=== PATIENT | male | born 1960 | race African-American/Black ===

== ENCOUNTER 2016-06-30 18:04 | Inpatient (IN) | payer BC ==
--- NOTE | 2016-06-30 18:16 | ER Document Report ---
Addendum entered and electronically signed by YOKASTA PEDRO NP 06/30/16 18:18 : Course - Re-evaluation Re-evalutation: 06/30/16 18:[address] Smith and he has had a recent urinary frequency has not checked his glucose lately. - Vital Signs Vital signs: Temp Pulse Resp BP Pulse Ox 97.5 F 59 L 22 H 170/112 H 99 06/30/16 18:13 06/30/16 18:13 06/30/16 18:13 06/30/16 18:13 06/30/16 18:13 Original Note: ED Medical Screen (RME) - General Stated Complaint: WEAKNESS,SHAKING,SWEATY Time seen by provider: 18:13 Mode of Arrival: Wheelchair Information source: Patient Notes: 55-year-old diabetic 2, lipidemia, hypertensive, CHF was sitting at home at 3: 00 pm and developed weakness, sweating, short of breath, shakiness, coldness. Heart was beating fast. No nausea vomiting. No abdominal pain. Symptoms he has right now are shaking weakness and cold feeling. - Related Data Allergies/Adverse Reactions: No Known Allergies Allergy (Verified 08/26/11 13:41) Past Medical History Pulmonary Medical History: Denies: Hx Tuberculosis Past Surgical History: Denies: Hx Appendectomy, Hx Bowel Surgery, Hx Cholecystectomy, Hx Coronary Artery Bypass Graft, Hx Gastric Bypass Surgery, Hx Herniorrhaphy, Hx Pacemaker, Hx Tonsillectomy - Immunizations Hx Diphtheria, Pertussis, Tetanus Vaccination: Yes
[2016-06-30] MEDS ORDERED: NORMAL SALINE 1000 ML 1,000 ML IV ONE (18:18)
[2016-06-30] MEDS ORDERED: ASPIRIN 81 MG TABLET, CHEWABLE PO ONE (18:36)
[2016-06-30] MEDS ORDERED: ADENOSINE INJ/PF 6 MG/2 ML SDV IV ONE ×2 (18:37→18:50)
[2016-06-30] MEDS ORDERED: HEPARIN SODIUM,PORCINE/D5W 250 ML IV PRN (18:59)
[2016-06-30] MEDS ORDERED: DILTIAZEM HCL/D5W 125 ML IV PRN (18:59)
[2016-06-30] MEDS ORDERED: HEPARIN SOD (PORCINE) 1,000 UNIT/ML 10 ML VIAL IV ONE (18:59)
[2016-06-30] MEDS ORDERED: HEPARIN SOD (PORCINE) 1,000 UNIT/ML 10 ML VIAL IV PRN (18:59)
[2016-06-30] MEDS ORDERED: DILTIAZEM HCL INJ 25 MG/5 ML VIAL IV ONE (18:59)
[2016-06-30 19:01] LABS: ABSOLUTE BASOPHILS # (AUTO) 0.1 10^3/uL (0.0-0.2); ABSOLUTE EOSINOPHILS # (AUTO) 0.1 10^3/uL (0.0-0.6); ABSOLUTE LYMPHOCYTES (AUTO) 0.9 10^3/uL (0.5-4.7); ABSOLUTE MONOCYTES (AUTO) 0.6 10^3/uL (0.1-1.4); ABSOLUTE NEUT (AUTO) 7.7 10^3/uL (1.7-8.2); BASOPHILS % (AUTO) 0.8 % (0-2); EOSINOPHILS % (AUTO) 0.7 % (0-6); HEMOGLOBIN 15.3 g/dL (13.5-17.0); HGB HCT DIFFERENCE -0.1; LYMPHOCYTES % (AUTO) 9.9 % (13-45); MEAN CORPUSCULAR HEMOGLOBIN 25.5 pg (27.0-33.4); MEAN CORPUSCULAR HGB CONC 33.2 g/dL (32.0-36.0); MEAN CORPUSCULAR VOLUME 77 fl (80-97); RED BLOOD COUNT 5.98 10^6/uL (4.35-5.55); RED CELL DISTRIBUTION WIDTH 14.9 % (11.5-14.0); SEGMENTED NEUTROPHILS % (AUTO) 82.6 % (42-78); WHITE BLOOD COUNT 9.3 10^3/uL (4.0-10.5)
[2016-06-30 19:09] LABS: PROTHROMBIN TIME 12.9 SEC (11.4-15.4)
[2016-06-30 19:34] LABS: ALANINE AMINOTRANSFERASE 15 U/L (21-72); ALBUMIN 3.7 g/dL (3.5-5.0); ALKALINE PHOSPHATASE 63 U/L (38-126); ANION GAP 14 (5-19); ASPARTATE AMINO TRANSFERASE 25 U/L (17-59); BLOOD UREA NITROGEN 24 mg/dL (7-20); CALCIUM 8.8 mg/dL (8.4-10.2); CARBON DIOXIDE 24 mmol/L (22-30); CHLORIDE 100 mmol/L (98-107); CREATINE KINASE 176 U/L (55-170); CREATININE RESULT 2.04 mg/dL (0.52-1.25); LIPASE 114.1 U/L (23-300); MAGNESIUM 1.8 mg/dL (1.6-2.3); POTASSIUM 3.5 mmol/L (3.6-5.0); SODIUM 138.3 mmol/L (137-145); TOTAL PROTEIN 7.6 g/dL (6.3-8.2)
[2016-06-30 19:40] LABS: CREATINE KINASE MB 2.7 ng/mL (<4.55)
[2016-06-30 19:51] LABS: GLUCOSE 445 mg/dL (75-110); TROPONIN I 0.088 ng/mL
--- NOTE | 2016-06-30 20:02 | ER Document Report ---
ED General - General Chief Complaint: Weakness Stated Complaint: WEAKNESS,SHAKING,SWEATY Mode of Arrival: Wheelchair TRAVEL OUTSIDE OF THE [place] IN LAST 30 DAYS: No - HPI Patient complains to provider of: generalized weakness shortness of breath Notes: Patient coming in for palpitations her last week shortness of breath ongoing since 3:00 this afternoon. Patient states resting currently may develop symptoms therefore came to ER. Patient has a history diabetes and congestive heart failure. Patient states his PCP is Dr. Aguiar. Patient states recent saw Dr. Marcus one half weeks ago no changes in his medications. Denies smoking denies fevers chills nausea vomiting Upon evaluating the patient patient is on the youth nutritional monitor showing a heart rate between 160 and 180. Initial rhythm looks to be in SVT. - Related Data Allergies/Adverse Reactions: No Known Allergies Allergy (Verified 06/30/16 19:01) Past Medical History - General Information source: Patient - Social History Smoking Status: Never Smoker Family History: None Patient has suicidal ideation: No Patient has homicidal ideation: No Pulmonary Medical History: Denies: Hx Tuberculosis Past Surgical History: Denies: Hx Appendectomy, Hx Bowel Surgery, Hx Cholecystectomy, Hx Coronary Artery Bypass Graft, Hx Gastric Bypass Surgery, Hx Herniorrhaphy, Hx Pacemaker, Hx Tonsillectomy - Immunizations Hx Diphtheria, Pertussis, Tetanus Vaccination: Yes Review of Systems - Review of Systems Constitutional: Diaphoresis, Other - Feeling unwell EENT: No symptoms reported Cardiovascular: Heart racing Respiratory: No symptoms reported Gastrointestinal: No symptoms reported Genitourinary: No symptoms reported Male Genitourinary: No symptoms reported Musculoskeletal: No symptoms reported Skin: No symptoms reported Hematologic/Lymphatic: No symptoms reported Neurological/Psychological: No symptoms reported -: Yes All other systems reviewed and negative Physical Exam - Vital signs Vitals: Temp Pulse Resp BP Pulse Ox 97.5 F 59 L 22 H 170/112 H 99 06/30/16 18:13 06/30/16 18:13 06/30/16 18:13 06/30/16 18:13 06/30/16 18:13 Interpretation: Normal - General General appearance: Alert, Other - Diaphoretic - HEENT Head: Normocephalic, Atraumatic Eyes: Normal Pupils: PERRL - Respiratory Respiratory status: No respiratory distress Chest status: Nontender Breath sounds: Normal Chest palpation: Normal - Cardiovascular Rhythm: Tachycardia Heart sounds: Normal auscultation Murmur: No - Abdominal Inspection: Normal Distension: No distension Bowel sounds: Normal Tenderness: Nontender Organomegaly: No organomegaly - Back Back: Normal, Nontender - Extremities General upper extremity: Normal inspection, Nontender, Normal color, Normal ROM , Normal temperature General lower extremity: Normal inspection, Nontender, Normal color, Normal ROM , Normal temperature, Normal weight bearing. No: Barbara's sign - Neurological Neuro grossly intact: Yes Cognition: Normal Orientation: AAOx4 [place] Coma Scale Eye Opening: Spontaneous [place] Coma Scale Verbal: Oriented [place] Coma Scale Motor: Obeys Commands [place] Coma Scale Total: 15 Speech: Normal Motor strength normal: LUE, RUE, LLE, RLE Sensory: Normal - Psychological Associated symptoms: Normal affect, Normal mood - Skin Skin Temperature: Warm Skin Moisture: Diaphoretic Skin Color: Normal Course - Re-evaluation Re-evalutation: 06/30/16 20:37 Patient's monitor and storage bin tender strip showed SVT. Patient was given adenosine 6 mg with no change adenosine 12 mg with underlying rhythm showing atrophic fibrillation. Patient was then transitioned to a Cardizem drip with a heparin drip. Lab work shows chronic renal insufficiency with elevated blood sugar no signs of DKA. Chest x-ray shows cardiomegaly no signs of infection. Patient's case was discussed with PCP Will admit to [facility]. - Vital Signs Vital signs: Temp Pulse Resp BP Pulse Ox 97.5 F 59 L 19 170/90 H 98 06/30/16 18:13 06/30/16 18:13 06/30/16 20:01 06/30/16 20:01 06/30/16 20:01 - Laboratory Result Diagrams: 06/30/16 18:48 06/30/16 18:48 Laboratory results interpreted by me: 06/30/16 06/30/16 06/30/16 18:48 18:48 18:48 RBC 5.98 H MCV 77 L MCH 25.5 L RDW 14.9 H Seg Neutrophils % 82.6 H Lymphocytes % 9.9 L Potassium 3.5 L BUN 24 H Creatinine 2.04 H Est GFR ( Amer) 42 L Est GFR (Non-Af Amer) 34 L Glucose 445 H* ALT 15 L Creatine Kinase 176 H NT-Pro-B Natriuret Pep 4650 H Critical Care Note - Critical Care Note Total time excluding time spent on procedures (mins): 35 Comments: Multiple valuations managing drip from patient with new onset A. fib Discharge - Discharge Clinical Impression: New onset a-fib, Renal insufficiency, Acute hyperglycemia Diabetes Qualifiers: Diabetes mellitus type: type 1 Diabetes mellitus complication status: with unspecified complications Qualified Code(s): E10.8 - Type 1 diabetes mellitus with unspecified complications Disposition: ADMITTED INPATIENT Admitting Provider: Stefania Unit Admitted: HASMUKH
[2016-06-30 21:27] LABS: THYROID STIMULATING HORMONE 0.75 uIU/mL (0.47-4.68)
[2016-06-30 21:33] LABS: AMORPHOUS SEDIMENT,URINE TRACE /HPF; APPEARANCE,URINE SLIGHTLY-CLOUDY; BILIRUBIN,URINE NEGATIVE (NEGATIVE); GLUCOSE, URINE >=500 mg/dL (NEGATIVE); KETONES,URINE TRACE mg/dL (NEGATIVE); LEUKOCYTE ESTERASE,URINE NEGATIVE (NEGATIVE); NITRITE,URINE NEGATIVE (NEGATIVE); PROTEIN,URINE >=500 mg/dL (NEGATIVE); URINE SPECIFIC GRAVITY 1.025; UROBILINOGEN,URINE NEGATIVE mg/dL (<2.0)
[2016-06-30] MEDS ORDERED: DEXTROSE 50%-WATER SYRINGE 12.5 GM/25 ML DOSE IV PRN (22:56)
[2016-06-30] MEDS ORDERED: DEXTROSE 40% GEL 15 GM TUBE PO PRN (22:56)
[2016-06-30] MEDS ORDERED: GLUCAGON,HUMAN RECOMB 1 MG INJ IM PRN (22:56)
[2016-06-30] MEDS ORDERED: DEXTROSE 50%-WATER SYRINGE 25 GM/50 ML DOSE IV PRN (22:56)
[2016-06-30] MEDS ORDERED: DEXTROSE 40% GEL 15 GM TUBE X 2 PO PRN (22:56)
[2016-06-30] MEDS ORDERED: DILTIAZEM HCL/D5W 125 MG/125 ML RTUINJ IV PRN (22:58)
--- NOTE | 2016-06-30 23:01 | EKG REPORT ---
SEVERITY:- ABNORMAL ECG - ATRIAL FIBRILLATION, V-RATE 75-134 PAIRED VENTRICULAR PREMATURE COMPLEXES LVH WITH SECONDARY REPOLARIZATION ABNORMALITY ABNORMAL T, PROBABLE ISCHEMIA, LATERAL LEADS BORDERLINE PROLONGED QT INTERVAL : Confirmed by: Yaquelin Mendoza 30-Jun-2016 23:00:11
--- NOTE | 2016-06-30 23:02 | EKG REPORT ---
SEVERITY:- ABNORMAL ECG - SINUS TACHYCARDIA VS SVT LVH WITH SECONDARY REPOLARIZATION ABNORMALITY ABNORMAL T, PROBABLE ISCHEMIA, LATERAL LEADS PROLONGED QT INTERVAL : Confirmed by: Yaquelin Mendoza 30-Jun-2016 23:01:03
[2016-06-30] MEDS ORDERED: ZOLPIDEM TARTRATE 5 MG TABLET PO PRN (23:03)
[2016-06-30] MEDS ORDERED: ACETAMINOPHEN 325 MG TABLET PO PRN (23:04)
[2016-06-30] MEDS ORDERED: DOCUSATE SODIUM 100 MG CAPSULE PO PRN (23:05)
[2016-06-30] MEDS ORDERED: DILTIAZEM HCL 60 MG TABLET PO ONE (23:15)
[2016-06-30] MEDS ORDERED: WARFARIN SODIUM 5 MG TABLET PO ONE (23:15)
[2016-06-30] MEDS: HEPARIN SODIUM,PORCINE/D5W 25,000 UNIT/250 ML RTUINJ IV PRN (23:34)
[2016-06-30] MEDS: INSULIN LISPRO 100 UNIT/ML 3 ML VIAL SUBCUT PRN (23:50)
[2016-07-01] MEDS ORDERED: INFLUENZA ADLT QUAD (36MOS+) 2016-17 VAC 0.5 ML SYR IM PRN (00:47)
[2016-07-01] MEDS: DILTIAZEM HCL 60 MG TABLET PO SCH ×4 (01:35→17:35)
[2016-07-01] MEDS ORDERED: CLONIDINE HCL 0.1 MG TABLET ONE (02:49)
[2016-07-01] MEDS ORDERED: CLONIDINE HCL 0.2 MG TABLET PO ONE (03:15)
[2016-07-01] MEDS ORDERED: HYDRALAZINE HCL 50 MG TABLET PO ONE (03:15)
[2016-07-01 05:51] LABS: HEMATOCRIT 41.4 % (37.9-51.0); HEMOGLOBIN 13.8 g/dL (13.5-17.0); MEAN CORPUSCULAR HEMOGLOBIN 25.4 pg (27.0-33.4); MEAN CORPUSCULAR HGB CONC 33.2 g/dL (32.0-36.0); MEAN CORPUSCULAR VOLUME 76 fl (80-97); RED BLOOD COUNT 5.43 10^6/uL (4.35-5.55); WHITE BLOOD COUNT 7.9 10^3/uL (4.0-10.5)
[2016-07-01 06:06] LABS: ALANINE AMINOTRANSFERASE 22 U/L (21-72); ALKALINE PHOSPHATASE 49 U/L (38-126); ANION GAP 10 (5-19); ASPARTATE AMINO TRANSFERASE 20 U/L (17-59); BILIRUBIN,TOTAL 0.8 mg/dL (0.2-1.3); BLOOD UREA NITROGEN 24 mg/dL (7-20); CALCIUM 8.9 mg/dL (8.4-10.2); CARBON DIOXIDE 27 mmol/L (22-30); CHLORIDE 103 mmol/L (98-107); GLUCOSE 275 mg/dL (75-110); POTASSIUM 3.7 mmol/L (3.6-5.0); SODIUM 139.8 mmol/L (137-145); TOTAL PROTEIN 6.3 g/dL (6.3-8.2); TRIGLYCERIDES 73 mg/dL (<150)
[2016-07-01 06:07] LABS: CHOLESTEROL 199.04 mg/dL (0-200); Direct HDL 46 mg/dL (>40)
[2016-07-01 06:17] LABS: DIRECT LDL 143 mg/dL (<100)
[2016-07-01] MEDS: CLONIDINE HCL 0.2 MG TABLET PO SCH ×3 (07:10→22:19)
[2016-07-01] MEDS: LANSOPRAZOLE 30 MG TAB.RAP.DR PO SCH (07:10)
[2016-07-01] MEDS: HYDRALAZINE HCL 50 MG TABLET PO SCH ×3 (07:11→22:18)
[2016-07-01] MEDS ORDERED: HEPARIN SOD (PORCINE) 1,000 UNIT/ML 10 ML VIAL IV PRN (07:31)
[2016-07-01] MEDS: INSULIN LISPRO 100 UNIT/ML 3 ML VIAL SUBCUT PRN ×3 (07:43→22:19)
[2016-07-01] MEDS: FUROSEMIDE 40 MG TABLET PO SCH (08:41)
[2016-07-01] MEDS: SPIRONOLACTONE 25 MG TABLET PO SCH (08:42)
[2016-07-01] MEDS: CARVEDILOL 12.5 MG TABLET PO SCH ×2 (08:42→22:23)
[2016-07-01] MEDS: CHOLECALCIFEROL (D3) 1,000 UNIT TABLET PO SCH (08:43)
[2016-07-01] MEDS: FERROUS SULFATE 325 MG TABLET PO SCH ×2 (08:43→17:35)
[2016-07-01] MEDS: POTASSIUM CHLORIDE 10 MEQ TABLET.SA PO SCH (08:43)
--- NOTE | 2016-07-01 10:30 | PDOC CONSULTATION ---
[id number] Palpitations and shortness of breath History of Present Illness Admission Date/PCP: 06/30/16 20:45 ERMA DESAI Patient complains of: Palpitations and shortness of breath History of Present Illness: CATHY HALL is a 55 year old male, he was admitted through the emergency room with palpitations and shortness of breath which started around 3 PM on the day of admission. Patient denied any prior history of atrial fibrillation or palpitations. He denied any associated chest pain. Patient does give history of hypertension, diabetes and CHF. Initially patient was noted to have narrow complex tachycardia which was felt to be SVT but subsequently Patient on multiple EKGs and rhythm strip was noted to have atrial fibrillation with rapid ventricular response. This morning he converted to sinus rhythm spontaneously. Patient has been started on anticoagulation by his primary care M.D. Past Medical History Cardiac Medical History: Reports: Congestive Heart Failure, Hypertension Pulmonary Medical History: Denies: Tuberculosis Endocrine Medical History: Reports: Diabetes Mellitus Type 2 Past Surgical History Past Surgical History: Denies: Appendectomy, Cholecystectomy, Coronary Artery Bypass Graft, Gastric Bypass Surgery, Herniorrhaphy, Internal Defibrillator, Pacemaker, Splenectomy, Tonsillectomy, Valve Replacement, Vascular Surgery Social History Information Source: Patient Smoking Status: Never Smoker Frequency of Alcohol Use: Occasional Hx Recreational Drug Use: No Drugs: None Hx Prescription Drug Abuse: No - Advance Directive Resuscitation Status: Full Code Surrogate healthcare decision maker:: Not identified by the patient Family History Family History: None Parental Family History Reviewed: Yes Children Family History Reviewed: Yes Sibling(s) Family History Reviewed.: Yes - Negative for premature coronary artery disease or sudden cardiac in the family amongst first degree relatives. Medication/Allergy Home Medications: Carvedilol [Coreg 25 mg Tablet] 25 mg PO Q12 06/30/16 Clonidine HCl [Catapres 0.1 mg Tablet] 0.2 mg PO Q8 06/30/16 Furosemide [Lasix 40 mg Tablet] 40 mg PO DAILY 06/30/16 Hydralazine HCl [Apresoline 50 mg Tablet] 100 mg PO Q8 06/30/16 Potassium Chloride [Klor-Con 10 Meq Tablet.sa] 10 meq PO DAILY 06/30/16 Spironolactone [Aldactone 25 mg Tablet] 50 mg PO DAILY 06/30/16 Cholecalciferol (Vitamin D3) [Vitamin D3 2000 unit Tablet] 2,000 unit PO DAILY 07/01/16 Ferrous Sulfate [Iron] 325 mg PO BID 07/01/16 Simvastatin [Simvastatin] 20 mg PO QHS 07/01/16 Allergies/Adverse Reactions: No Known Allergies Allergy (Verified 06/30/16 19:01) Review of Systems Review of Systems: Please see history of present illness and past medical history as wall. Constitutional: No fever or chills reported. Head : No recent chronic headaches, recent head injury. Eyes: No recent eye pain, diplopia, redness, discharge, acute visual changes. Ears: No recent chronic ear pain, acute hearing loss, ear discharge. Oral cavity: No recent ulcerations, bleeding, oral cavity discomfort. Neck: No recent acute neck pain reported. Hematologic: No recent easy bruising or bleeding or hematologic malignancy reported. Lymphatic: No recent lymphatic malignancy, chronic lymphadenopathy reported yet Cardiovascular system review: See history of present illness. Respiratory system review: No recent chronic cough, hemoptysis, blood clots in the lungs reported. Mild Shortness of breath on exertion Gastrointestinal system review: Negative for any recent acute or chronic abdominal pain, hematemesis, melena, recent change in bowel habits. Genitourinary system review: No recent acute or chronic hematuria, flank pain, UTI etc. reported. Skin system review: Negative for any recent abnormal bruising, no rash, no pruritus reported. Neurologic: No prior history of strokes, mini strokes, seizure disorder. Psychologic: No history of major psychosis or depression reported. Musculoskeletal: Minor aches and pains reported. No acute joint swelling reported. Endocrine: No recent polyuria, polydipsia, recent heat or cold intolerance. Physical Exam Vital Signs: Temp Pulse Resp BP Pulse Ox 97.2 F 67 16 178/93 H 96 07/01/16 07:19 07/01/16 07:19 07/01/16 07:19 07/01/16 07:19 07/01/16 07:19 Intake & Output 06/30/16 07/01/16 07/02/16 06:59 06:59 06:59 Intake Total 385 Output Total 350 Balance 35 Weight 110 kg Exam: GENERAL: well-nourished and in no acute distress. Alert and oriented x3 HEAD: Atraumatic, normocephalic. EYES: Pupils equal round and reactive to light, extraocular movements intact, sclera anicteric, conjunctiva are normal. ENT: TMs normal, nares patent, oropharynx clear without exudates. Moist mucous membranes. No oral ulcerations or bleeding gums noted NECK: supple without lymphadenopathy. Trachea is central. No cervical or axillary lymphadenopathy noted. Carotids are 2+, JVD WNL LUNGS: Respiration seems nonlabored, no significant accessory muscle action noted. Breath sounds clear to auscultation bilaterally and equal. No wheezes rales or rhonchi. No significant dullness noted on percussion. CHEST: Palpation of the chest wall shows no significant chest wall tenderness or abnormalities. HEART: Lolita [employer], No PSH, 1/6 NADER aortic area, 1/6 browne systolic murmur mitral area, no rubs, no gallops. ABDOMEN: Soft, no significant tenderness appreciated, normoactive bowel sounds. No guarding, no rebound. No rigidity noted . No masses appreciated. EXTREMITIES: Pedal pulses are 1-2+, no calf tenderness noted. No clubbing or cyanosis.trace to 1+ pedal edema noted NEUROLOGICAL: Focused neurological exam showed no significant neurologic deficit. Normal speech, no focal weakness appreciated. PSYCH: Normal mood, normal affect. Judgment and insight within normal limits. SKIN: No significant ecchymosis, rash, ulcerations or signs of pruritus noted. MUSCULOSKELETAL EXAM: No significant joint swelling noted. Results Laboratory Results: 07/01/16 05:28 07/01/16 05:28 07/01/16 07/01/16 07/01/16 05:28 05:28 05:28 WBC 7.9 RBC 5.43 Hgb 13.8 Hct 41.4 MCV 76 L MCH 25.4 L MCHC 33.2 RDW 15.0 H Plt Count 166 Sodium 139.8 Potassium 3.7 Chloride 103 Carbon Dioxide 27 Anion Gap 10 BUN 24 H Creatinine 2.00 H Est GFR ( Amer) 43 L Est GFR (Non-Af Amer) 35 L Glucose 275 H Calcium 8.9 Total Bilirubin 0.8 AST 20 ALT 22 Alkaline Phosphatase 49 Total Protein 6.3 Albumin 3.0 L Triglycerides 73 Cholesterol 199.04 LDL Cholesterol Direct 143 H VLDL Cholesterol 15.0 HDL Cholesterol 46 TSH 0.80 EKG Comments: Multiple 12-lead EKG is reviewed. Initial EKG showed that a complex tachycardia most likely SVT. Subsequent EKG showed atrial fibrillation with rapid ventricular response. LVH with secondary ST-T wave changes were noted. Impressions: Chest X-Ray 06/30/16 18:36 IMPRESSION: No acute consolidations or pleural effusions are identified. Other findings as noted above. Assessment & Plan - Diagnosis (1) Hypertension Qualifiers: Hypertension type: essential hypertension Qualified Code(s): I10 - Essential (primary) hypertension Is this a current diagnosis for this admission?: YesPlan: Blood pressure goal in this patient is 135/85 or less. This was discussed with the patient. Currently blood pressure under reasonable control. Better medication for this patient are SELVIN inhibitor/ARB/beta klaus etc. discussed side effects of uncontrolled hypertension and also severe hypotension. (2) Abnormal electrocardiogram Is this a current diagnosis for this admission?: YesPlan: To be evaluated further with a nuclear stress test in view of diabetes, chronic kidney disease and hypertension, history of CHF is high probability of patient having underlying significant CAD. (3) Renal insufficiency Is this a current diagnosis for this admission?: YesPlan: Patient seems to have chronic kidney disease stage 2-3. Creatinine been stable. Avoid any nephrotoxic agents, IV contrast agent dye etc. consider nephrology evaluation. Presence of chronic kidney disease is a prognostic factor. (4) Paroxysmal atrial fibrillation Is this a current diagnosis for this admission?: YesPlan: Patient has paroxysmal atrial fibrillation. Based on [id number] score chronic anticoagulation is indicated this was explained to the patient. Patient is agreeable. Discussed a small increased risk of bleeding but on the balance benefits far exceeds the risk. Patient felt to be a satisfactory candidate for chronic anticoagulation. Options are ELIQUIS, Xarelto, Pradaxa and chronic Coumadin therapy (5) Elevated troponin I level Is this a current diagnosis for this admission?: YesPlan: Most likely related to supply demand mismatch from atrial fibrillation with rapid ventricular response and SVT. The patient does however have abnormal EKG. This could be related to LVH. We will schedule patient for a nuclear stress test (6) Diabetes mellitus Qualifiers: Diabetes mellitus type: type 2 Chronic kidney disease stage: stage 2 ( mild) Is this a current diagnosis for this admission?: YesPlan: Recommend good control of blood sugar. However should avoid any hypoglycemia. Preferred agent for blood pressure control with the SELVIN inhibitor or angiotensin receptor blockers. Patient encouraged with low carbohydrate, low cholesterol diet and also regular walking program. Discussed that good control of blood sugar would reduce risk of future microvascular and macrovascular complications. (7) Dyslipidemia Is this a current diagnosis for this admission?: YesPlan: Patient noted to have dyslipidemia. LDL goal is less than 100 however if CAD is noted then goal is less than 70. Recommend statin therapy at least intermediate or high dose, of high potency status. Periodic lipid panel and liver panel is indicated. Patient to report any significant muscle discomfort or other side effects. (8) Obesity Qualifiers: Obesity type: unspecified obesity type Obesity severity: unspecified obesity severity Qualified Code(s): E66.9 - Obesity, unspecified Is this a current diagnosis for this admission?: YesPlan: Discussed adverse effect of overweight/obesity on cardiovascular event rate, sleep apnea, diabetes and hypertension et cetera. Patient has been recommended weight loss. (9) Sleep disorder Is this a current diagnosis for this admission?: YesPlan: Based on patient's symptoms, oropharyngeal exam, body habitus, comorbid diagnosis etc., there is high probability of underlying sleep apnea syndrome. Evaluation is recommended for sleep apnea as treatment of this condition if found is likely to benefit patient and reduce patient's future cardiovascular risk. - Notes Notes: CODE STATUS was discussed, patient remains full code. Surrogate decision-maker not identified. Multiple medical problems were addressed.More than 50% of the time spent coordinating care, discussing management plans with involved caregivers. Management plans discussed with involved personnels. Medical decision making was of moderate complexity. - Time Time Spent: 30 to 50 Minutes - Decision making was complex and multiple problems were addressed. Medications reviewed and adjusted accordingly: Yes
--- NOTE | 2016-07-01 11:55 | XCELERA REPORT ---
[address] [address] Transthoracic Echocardiogram Report Name: CATHY HALL Age: 55 yrs Gender: Male : 1960 Patient Status: Inpatient Patient Location: 3N\S\[facility]\S\A Study Date: 07/01/2016 09:27 AM Height: 72 in Weight: 249 lb BSA: 2.3 m2 Procedure: A complete two-dimensional transthoracic echocardiogram was performed (2D, M-mode, spectral and color flow Doppler). The study was technically adequate with some images being suboptimal in quality. Reason For Study: New onset afib Ordering Physician: ERMA DESAI Performed By: Jessica Bhakta Interpretation Summary The left ventricular ejection fraction is normal. There is moderate concentric left ventricular hypertrophy. Doppler measurements suggest pseudonormalized left ventricular relaxation, which is associated with grade II/IV or mild to moderate diastolic dysfunction The left ventricle is grossly normal size. Wall motion cannot be accurately commented on, but no definite regional wall motion abnormalities noted. The right ventricular systolic function is normal. The right atrium is normal in size The left atrial size is normal. There is no mitral valve stenosis. There is a trace amount of mitral regurgitation There is no aortic valve stenosis No aortic regurgitation is present. There is a trace or physiologic amount of tricuspid regurgitation Tricuspid regurgitation jet envelope not well defined to measure RV systolic pressure accurately. The aortic root is not well visualized but is probably normal size. The inferior vena cava appeared normal There is no pericardial effusion. MMode/2D Measurements \T\ Calculations RVDd: 3.2 cm LVIDd: 4.8 cmFS: 43.3 % Ao root diam: 3.5 cm IVSd: 1.6 cm LVIDs: 2.7 cmEDV(Teich): 108.7 ml LVPWd: 1.6 cmESV(Teich): 27.9 ml Ao root area: 9.8 cm2 EF(Teich): 74.3 % LA dimension: 4.2 cm LVOT diam: 2.2 cm LVOT area: 3.7 cm2 Doppler Measurements \T\ Calculations MV E max kevin: MV P1/2t max kevin: Ao V2 max: LV V1 max P.6 cm/sec 81.6 cm/sec 181.6 cm/sec 5.8 mmHg MV A max kevin: MV P1/2t: 77.4 msec Ao max PG: LV V1 max: 74.0 cm/sec MVA(P1/2t): 2.8 cm2 13.2 mmHg 120.4 cm/sec MV E/A: 1.1 MV dec slope: BRENNA(V,D): 2.5 cm2 308.7 cm/sec2 MV dec time: 0.28 sec PA V2 max: 91.8 cm/sec PA max P.4 mmHg Left Ventricle The left ventricle is grossly normal size. There is moderate concentric left ventricular hypertrophy. The left ventricular ejection fraction is normal. Doppler measurements suggest pseudonormalized left ventricular relaxation, which is associated with grade II/IV or mild to moderate diastolic dysfunction. Wall motion cannot be accurately commented on, but no definite regional wall motion abnormalities noted. Right Ventricle The right ventricle is grossly normal size. There is normal right ventricular wall thickness. The right ventricular systolic function is normal. Atria The right atrium is normal in size. The left atrial size is normal. Interarterial septum not well visualized and not well dopplered. Cannot comment on ASD/PFO presence. Mitral Valve The mitral valve leaflets are sclerotic, but show no functional abnormalities. There is no mitral valve stenosis. There is a trace amount of mitral regurgitation. Aortic Valve The aortic valve is grossly normal. There is no aortic valve stenosis. No aortic regurgitation is present. Tricuspid Valve The tricuspid valve is not well visualized secondary to technical limitations. There is no tricuspid stenosis. There is a trace or physiologic amount of tricuspid regurgitation. Tricuspid regurgitation jet envelope not well defined to measure RV systolic pressure accurately. Pulmonic Valve The pulmonic valve is not well visualized. Great Vessels The aortic root is not well visualized but is probably normal size. The inferior vena cava appeared normal. Effusions There is no pericardial effusion. : ERMA DESAI > Yaquelin Mendoza
--- NOTE | 2016-07-01 13:00 | PDOC H&P ---
History of Present Illness Admission Date/PCP: 06/30/16 20:45 ERMA DESAI Patient complains of: Palpitations, weakness, fatigue and dyspnea since 3.00 pm on day of presentation. History of Present Illness: 55 yr old man with hx of DM/Hypertension/Hyperlipidemia/CHF- diastolic dysfunction/CKD stage3/Vitamin D deff./Morbid obesity who is chronically non- compliant with medications and office appointments. He started having palpitations, weakness, fatigue and dyspnea around 3.00 pm on the day of presentation. Denied chest pain, syncope, nausea/vomiting, cough and diaphoresis. He came to ER and was found to be in A-fib with RVR. He was put on Adenosine, Cardizem drip heparin drip.His BG was 445 and BP was also high. He was admitted for Afib with RVR, uncontrolled DM and HTN. Past Medical History Cardiac Medical History: Reports: Congestive Heart Failure, Hypertension Pulmonary Medical History: Denies: Tuberculosis Endocrine Medical History: Reports: Diabetes Mellitus Type 2 Past Surgical History Past Surgical History: Denies: Appendectomy, Cholecystectomy, Coronary Artery Bypass Graft, Gastric Bypass Surgery, Herniorrhaphy, Internal Defibrillator, Pacemaker, Splenectomy, Tonsillectomy, Valve Replacement, Vascular Surgery Social History Smoking Status: Never Smoker Frequency of Alcohol Use: Occasional Hx Recreational Drug Use: No Drugs: None Hx Prescription Drug Abuse: No - Advance Directive Resuscitation Status: Full Code Family History Family History: None Parental Family History Reviewed: Yes Children Family History Reviewed: Yes Sibling(s) Family History Reviewed.: Yes Medication/Allergy Home Medications: Carvedilol [Coreg 25 mg Tablet] 25 mg PO Q12 06/30/16 Clonidine HCl [Catapres 0.1 mg Tablet] 0.2 mg PO Q8 06/30/16 Furosemide [Lasix 40 mg Tablet] 40 mg PO DAILY 06/30/16 Hydralazine HCl [Apresoline 50 mg Tablet] 100 mg PO Q8 06/30/16 Potassium Chloride [Klor-Con 10 Meq Tablet.sa] 10 meq PO DAILY 06/30/16 Spironolactone [Aldactone 25 mg Tablet] 50 mg PO DAILY 06/30/16 Cholecalciferol (Vitamin D3) [Vitamin D3 2000 unit Tablet] 2,000 unit PO DAILY 07/01/16 Ferrous Sulfate [Iron] 325 mg PO BID 07/01/16 Simvastatin [Simvastatin] 20 mg PO QHS 07/01/16 Allergies/Adverse Reactions: No Known Allergies Allergy (Verified 06/30/16 19:01) Review of Systems All systems: as per PMH Constitutional: PRESENT: weakness Ears: PRESENT: as per HPI Nose, Mouth, and Throat: PRESENT: as per HPI Cardiovascular: PRESENT: palpitations Respiratory: PRESENT: dyspnea Gastrointestinal: PRESENT: as per HPI Genitourinary: PRESENT: as per HPI Integumentary: PRESENT: as per HPI Neurological: PRESENT: as per HPI Psychiatric: PRESENT: as per HPI Physical Exam Vital Signs: Temp Pulse Resp BP Pulse Ox 97.2 F 67 16 178/93 H 96 07/01/16 07:19 07/01/16 07:19 07/01/16 07:19 07/01/16 07:19 07/01/16 07:19 Intake & Output 06/30/16 07/01/16 07/02/16 06:59 06:59 06:59 Intake Total 385 Output Total 350 Balance 35 Weight 110 kg General appearance: PRESENT: no acute distress, morbidly obese, well-developed, well-nourished Head exam: PRESENT: atraumatic, normocephalic Eye exam: PRESENT: PERRLA Ear exam: PRESENT: normal external ear exam, TM's normal bilaterally Mouth exam: PRESENT: moist, neck supple Neck exam: PRESENT: full ROM Respiratory exam: PRESENT: clear to auscultation farooq, symmetrical Cardiovascular exam: PRESENT: irregular rhythm, +S1, +S2 Pulses: PRESENT: +2 pedal pulses bilateral Vascular exam: PRESENT: normal capillary refill GI/Abdominal exam: PRESENT: normal bowel sounds, soft Musculoskeletal exam: PRESENT: ambulatory, full ROM Neurological exam: PRESENT: oriented to person, oriented to place, oriented to time, CN II-XII grossly intact Psychiatric exam: PRESENT: normal mood Skin exam: PRESENT: normal color Results Laboratory Results: 07/01/16 05:28 07/01/16 05:28 07/01/16 07/01/16 07/01/16 05:28 05:28 05:28 WBC 7.9 RBC 5.43 Hgb 13.8 Hct 41.4 MCV 76 L MCH 25.4 L MCHC 33.2 RDW 15.0 H Plt Count 166 Sodium 139.8 Potassium 3.7 Chloride 103 Carbon Dioxide 27 Anion Gap 10 BUN 24 H Creatinine 2.00 H Est GFR ( Amer) 43 L Est GFR (Non-Af Amer) 35 L Glucose 275 H Calcium 8.9 Total Bilirubin 0.8 AST 20 ALT 22 Alkaline Phosphatase 49 Total Protein 6.3 Albumin 3.0 L Triglycerides 73 Cholesterol 199.04 LDL Cholesterol Direct 143 H VLDL Cholesterol 15.0 HDL Cholesterol 46 TSH 0.80 Impressions: Chest X-Ray 06/30/16 18:36 IMPRESSION: No acute consolidations or pleural effusions are identified. Other findings as noted above. Assessment & Plan - Diagnosis (1) New onset a-fib Is this a current diagnosis for this admission?: YesPlan: Switch him to Eliquis 2.5 mg BID po; D/C Heparin drip and Warfarin. Ct with Cardizem drip and taper as per protocol. Ct with Cardizem 60 mg q6h po; F/u cardiology consult with Dr Mendoza. (2) Diabetes mellitus Qualifiers: Diabetes mellitus type: type 2 Chronic kidney disease stage: stage 2 ( mild) Is this a current diagnosis for this admission?: YesPlan: Ct with sliddingscale with humalog insulin [facility]; accucheck QAC, QHS; Lantus 20 iu qhs subcut; 1800 calorie ADA diet. Dietary consult for dietary mgt of DM2. (3) Hypertension Qualifiers: Hypertension type: essential hypertension Qualified Code(s): I10 - Essential (primary) hypertension Plan: Ct with Clonidine 0.2 mg q8 po; Coreg 25 mg BID po; Amlodipine 10 mg qd po; Hydralazine 100 mg TID po; Labetalol 100mg BID po; Clonidine 0.1mh q6h prn po for SBP>160 or DBP >100; 2 G sodium diet. (4) Congestive heart failure (CHF) Qualifiers: Congestive heart failure type: diastolic Congestive heart failure chronicity: acute on chronic Qualified Code(s): I50.33 - Acute on chronic diastolic (congestive) heart failure Is this a current diagnosis for this admission?: YesPlan: Ct with Lasix 40 mg qd po; Spironolactone 40 mg qd po; daily wt, strict input/ out put chart. F/u Nuclear stress test; f/u Dr Mendoza. (5) Hyperlipidemia Is this a current diagnosis for this admission?: YesPlan: Switch to Atorvastatin 20mg qhs po; 200 mg cholesterol diet. (6) Chronic kidney disease (CKD) Is this a current diagnosis for this admission?: YesPlan: Avoid all nephrotoxic meds; daily wt; strict input/output chart; monitor chemistries daily. (7) Vitamin D deficiency Is this a current diagnosis for this admission?: NoPlan: Ct with Vitamin D 2000iu daily po. (8) Elevated troponin I level Is this a current diagnosis for this admission?: YesPlan: This is possibly due to CKD vs A-fib. F/u nuclear stress test as requested by Dr Mendoza. (9) Obesity Qualifiers: Obesity type: unspecified obesity type Obesity severity: unspecified obesity severity Qualified Code(s): E66.9 - Obesity, unspecified Is this a current diagnosis for this admission?: YesPlan: Ct with dietary counseling and exercise on mgt of obesity. (10) DVT prophylaxis Is this a current diagnosis for this admission?: YesPlan: Ct with Eliquis 2.5 mg BID po; SCD. - Time Time Spent: 30 to 50 Minutes Medications reviewed and adjusted accordingly: Yes Anticipated discharge: Home Within: within 72 hours - Inpatient Certification Medical Necessity: Failure to Improve With Outpatient Therapy, Significant Comorbidiites Make Outpatient Treatment Too Risky, Need Close Monitoring Due to Risk of Patient Decompensation, Need For Continuous Telemetry Monitoring, Risk of Diagnosis Which Will Require Inpatient Eval/Care/Monitoring
[2016-07-01] MEDS: HEPARIN SODIUM,PORCINE/D5W 25,000 UNIT/250 ML RTUINJ IV PRN (16:16)
--- NOTE | 2016-07-01 16:58 | EKG REPORT ---
SEVERITY:- ABNORMAL ECG - SINUS RHYTHM LVH WITH SECONDARY REPOLARIZATION ABNORMALITY ABNORMAL T, PROBABLE ISCHEMIA, LATERAL LEADS BORDERLINE PROLONGED QT INTERVAL : Confirmed by: Rimma Ly MD 01-Jul-2016 16:57:33
--- NOTE | 2016-07-01 16:59 | EKG REPORT ---
SEVERITY:- ABNORMAL ECG - A-FLUTTER W/ PREDOM 2:1 AV BLOCK, A-RATE 319 LVH WITH SECONDARY REPOLARIZATION ABNORMALITY ABNORMAL T, PROBABLE ISCHEMIA, LATERAL LEADS PROLONGED QT INTERVAL : Confirmed by: Rimma Ly MD 01-Jul-2016 16:57:54
--- NOTE | 2016-07-01 16:59 | EKG REPORT ---
SEVERITY:- ABNORMAL ECG - ATRIAL FIBRILLATION, V-RATE 110-197 VENTRICULAR PREMATURE COMPLEX LVH WITH SECONDARY REPOLARIZATION ABNORMALITY BORDERLINE PROLONGED QT INTERVAL : Confirmed by: Rimma Ly MD 01-Jul-2016 16:57:45
[2016-07-01] MEDS: APIXABAN 2.5 MG TABLET PO SCH (17:35)
[2016-07-01] MEDS ORDERED: WARFARIN SODIUM 5 MG TABLET PO SCH (22:00)
[2016-07-01] MEDS ORDERED: SIMVASTATIN 10 MG TABLET PO SCH (22:00)
[2016-07-01] MEDS: INSULIN GLARGINE,HUM.REC.ANLOG 300 UNIT/3 ML INSULN.PEN SUBCUT SCH (22:19)
[2016-07-01] MEDS: ATORVASTATIN CALCIUM 20 MG TABLET PO SCH (22:19)
[2016-07-02] MEDS: DILTIAZEM HCL 60 MG TABLET PO SCH ×3 (00:54→12:01)
[2016-07-02] MEDS: CLONIDINE HCL 0.2 MG TABLET PO SCH ×3 (06:37→22:27)
[2016-07-02] MEDS: LANSOPRAZOLE 30 MG TAB.RAP.DR PO SCH (06:38)
[2016-07-02] MEDS: HYDRALAZINE HCL 50 MG TABLET PO SCH ×3 (06:38→22:27)
[2016-07-02] MEDS: INSULIN LISPRO 100 UNIT/ML 3 ML VIAL SUBCUT PRN ×3 (07:31→22:28)
[2016-07-02] MEDS: CLONIDINE HCL 0.1 MG TABLET PO PRN ×2 (07:35→17:37)
[2016-07-02 07:42] LABS: ABSOLUTE BASOPHILS # (AUTO) 0.1 10^3/uL (0.0-0.2); ABSOLUTE EOSINOPHILS # (AUTO) 0.3 10^3/uL (0.0-0.6); ABSOLUTE LYMPHOCYTES (AUTO) 1.6 10^3/uL (0.5-4.7); ABSOLUTE MONOCYTES (AUTO) 0.5 10^3/uL (0.1-1.4); ABSOLUTE NEUT (AUTO) 3.9 10^3/uL (1.7-8.2); BASOPHILS % (AUTO) 1.1 % (0-2); EOSINOPHILS % (AUTO) 4.3 % (0-6); HEMATOCRIT 39.3 % (37.9-51.0); HEMOGLOBIN 13.1 g/dL (13.5-17.0); MEAN CORPUSCULAR HEMOGLOBIN 25.3 pg (27.0-33.4); MEAN CORPUSCULAR HGB CONC 33.3 g/dL (32.0-36.0); MEAN CORPUSCULAR VOLUME 76 fl (80-97); RED BLOOD COUNT 5.17 10^6/uL (4.35-5.55); RED CELL DISTRIBUTION WIDTH 14.9 % (11.5-14.0); SEGMENTED NEUTROPHILS % (AUTO) 61.6 % (42-78); WHITE BLOOD COUNT 6.4 10^3/uL (4.0-10.5)
[2016-07-02 07:48] LABS: ALANINE AMINOTRANSFERASE 13 U/L (21-72); ALBUMIN 2.9 g/dL (3.5-5.0); ALKALINE PHOSPHATASE 42 U/L (38-126); ANION GAP 10 (5-19); ASPARTATE AMINO TRANSFERASE 26 U/L (17-59); BILIRUBIN,TOTAL 0.6 mg/dL (0.2-1.3); BLOOD UREA NITROGEN 31 mg/dL (7-20); CARBON DIOXIDE 28 mmol/L (22-30); CHLORIDE 100 mmol/L (98-107); CREATININE RESULT 2.26 mg/dL (0.52-1.25); GLUCOSE 193 mg/dL (75-110); POTASSIUM 4.2 mmol/L (3.6-5.0); SODIUM 137.5 mmol/L (137-145); TOTAL PROTEIN 6.2 g/dL (6.3-8.2)
[2016-07-02 08:54] LABS: PARTIAL THROMBOPLASTIN TIME 22.8 SEC (23.5-35.8); PROTHROMBIN TIME 17.3 SEC (11.4-15.4)
[2016-07-02] MEDS: APIXABAN 2.5 MG TABLET PO SCH ×2 (12:00→17:37)
[2016-07-02] MEDS: SPIRONOLACTONE 25 MG TABLET PO SCH (12:01)
[2016-07-02] MEDS: FERROUS SULFATE 325 MG TABLET PO SCH ×2 (12:01→17:37)
[2016-07-02] MEDS: POTASSIUM CHLORIDE 10 MEQ TABLET.SA PO SCH (12:02)
[2016-07-02] MEDS: CHOLECALCIFEROL (D3) 1,000 UNIT TABLET PO SCH (12:02)
[2016-07-02] MEDS: FUROSEMIDE 40 MG TABLET PO SCH (12:02)
[2016-07-02] MEDS: CARVEDILOL 12.5 MG TABLET PO SCH ×2 (12:03→22:29)
[2016-07-02] MEDS ORDERED: REGADENOSON INJ 0.4 MG/5 ML DISP.SYRIN IV ONE (12:12)
[2016-07-02] MEDS ORDERED: AMINOPHYLLINE INJ/PF 250 MG/10 ML SDV IV ONE (12:12)
--- NOTE | 2016-07-02 12:13 | PDOC PROGRESS REPORT ---
Subjective Progress Note for:: 07/02/16 Subjective:: He is feeling better. He spontaneously converted to sinus rhythm yesterday. He had cardiolyte stress test today. We will switch him to Cardizem CD 240 mg daily po and monitor him overnight. For possible D/C home tomorrow. Physical Exam Vital Signs: Temp Pulse Resp BP Pulse Ox 97.7 F 66 19 155/89 H 97 07/02/16 11:24 07/02/16 11:24 07/02/16 11:24 07/02/16 11:24 07/02/16 11:24 Intake & Output 07/01/16 07/02/16 07/03/16 06:59 06:59 06:59 Intake Total 1497 Balance 1497 Weight 116.8 kg Results Laboratory Results: 07/02/16 03:50 07/02/16 03:50 07/02/16 07/02/16 03:50 03:50 WBC 6.4 RBC 5.17 Hgb 13.1 L Hct 39.3 MCV 76 L MCH 25.3 L MCHC 33.3 RDW 14.9 H Plt Count 150 Seg Neutrophils % 61.6 Lymphocytes % 25.0 Monocytes % 8.0 Eosinophils % 4.3 Basophils % 1.1 Absolute Neutrophils 3.9 Absolute Lymphocytes 1.6 Absolute Monocytes 0.5 Absolute Eosinophils 0.3 Absolute Basophils 0.1 Sodium 137.5 Potassium 4.2 Chloride 100 Carbon Dioxide 28 Anion Gap 10 BUN 31 H Creatinine 2.26 H Est GFR ( Amer) 37 L Est GFR (Non-Af Amer) 31 L Glucose 193 H Calcium 9.0 Total Bilirubin 0.6 AST 26 ALT 13 L Alkaline Phosphatase 42 Total Protein 6.2 L Albumin 2.9 L Impressions: Chest X-Ray 06/30/16 18:36 IMPRESSION: No acute consolidations or pleural effusions are identified. Other findings as noted above. Assessment & Plan - Diagnosis (1) New onset a-fib Is this a current diagnosis for this admission?: YesPlan: Switch him to Eliquis 2.5 mg BID po; D/C Heparin drip and Warfarin. Switch him to Cardizem CD 240 mg daily po po; F/u cardiology consult with Dr Mendoza. (2) Diabetes mellitus Qualifiers: Diabetes mellitus type: type 2 Chronic kidney disease stage: stage 2 ( mild) Is this a current diagnosis for this admission?: YesPlan: Ct with sliddingscale with humalog insulin as per [facility] protocol; accucheck QAC, QHS; Lantus 20 iu qhs subcut; 1800 calorie ADA diet. Dietary consult for dietary mgt of DM2. (3) Hypertension Qualifiers: Hypertension type: essential hypertension Qualified Code(s): I10 - Essential (primary) hypertension Is this a current diagnosis for this admission?: YesPlan: Ct with Clonidine 0.2 mg q8 po; Coreg 25 mg BID po; Amlodipine 10 mg qd po; Hydralazine 100 mg TID po; Labetalol 100mg BID po; Clonidine 0.1mh q6h prn po for SBP>160 or DBP >100; 2 G sodium diet. (4) Congestive heart failure (CHF) Qualifiers: Congestive heart failure type: diastolic Congestive heart failure chronicity: acute on chronic Qualified Code(s): I50.33 - Acute on chronic diastolic (congestive) heart failure Is this a current diagnosis for this admission?: YesPlan: Ct with Lasix 40 mg qd po; Spironolactone 40 mg qd po; daily wt, strict input/ out put chart. F/u Nuclear stress test; f/u Dr Mendoza. (5) Hyperlipidemia Is this a current diagnosis for this admission?: YesPlan: Switch to Atorvastatin 20mg qhs po; 200 mg cholesterol diet. (6) Chronic kidney disease (CKD) Is this a current diagnosis for this admission?: YesPlan: Avoid all nephrotoxic meds; daily wt; strict input/output chart; monitor chemistries daily. (7) Vitamin D deficiency Is this a current diagnosis for this admission?: NoPlan: Ct with Vitamin D 2000iu daily po. (8) Elevated troponin I level Is this a current diagnosis for this admission?: YesPlan: This is possibly due to CKD vs A-fib. He had cardiolyte stress test today by Dr Mendoza. (9) Obesity Qualifiers: Obesity type: unspecified obesity type Obesity severity: unspecified obesity severity Qualified Code(s): E66.9 - Obesity, unspecified Is this a current diagnosis for this admission?: YesPlan: Ct with dietary counseling and exercise on mgt of obesity. (10) DVT prophylaxis Is this a current diagnosis for this admission?: YesPlan: Ct with Eliquis 2.5 mg BID po; SCD. (11) Sleep apnea, obstructive Is this a current diagnosis for this admission?: YesPlan: Pt will be scheduled for sleep study on outpatient as per Dr Mendoza. Ct with appropriate sleep hygiene. - Time Time Spent with patient: 35 or more minutes Medications reviewed and adjusted accordingly: Yes Anticipated discharge: Home Within: within 24 hours
--- NOTE | 2016-07-02 12:23 | DRAGON STRESS TEST REPORT ---
INTRAVENOUS LEXISCAN CARDIOLITE STRESS TEST USING SINGLE PHOTON EMMISION COMPUTERIZED TOMOGRAPHIC. DATE OF PROCEDURE: 07/02/2016 INDICATION : Abnormal EKG, abnormal troponin I CARDIAC RISK FACTORS: Hypertension, paroxysmal A. fib, obesity RESTING EKG: Sinus rhythm with APCs, LVH with secondary ST-T wave changes versus ischemic ST-T wave changes STRESS EKG: No significant changes noted with LexiScan bolus REASON FOR TERMINATION: Protocol. PROCEDURE REPORT: Baseline heart rate 63 beats per minute with blood pressure of 161/98. Patient had no significant complaints. Heart rate at 2 minutes post bolus 78 with a blood pressure of and 176/79. 3 minutes post bolus heart rate 76 with blood pressure of 173/79. No significant EKG changes were noted. Patient had no significant complaints during the procedure or postprocedure. CONCLUSIONS: Normal EKG and hemodynamic response to IV LexiScan. NUCLEAR DATA: At rest the patient was given 14.96 millicuries of technetium 99 sestamibi injected intravenously. As per protocol rest gated SPECT images were obtained. Subsequently the patient was given intravenous LexiScan at a dose of 0.4 mg in 5 mL intravenously, followed by flush with normal saline. Subsequently the stress dose of 43.4 millicuries of technetium 99 sestamibi was injected intravenously. As per protocol stress gated images were obtained. NUCLEAR INTERPRETATION: Both raw and processed data were used for interpretation. Visual, qualitative, computer-generated quantitative data was used. There was good myocardial uptake of technetium compound. Motion artifact and soft tissue attenuations were noted. Increased visceral uptake was noted. No definitive areas of transient perfusion defect noted. No definitive areas of fixed perfusion defect or scars noted except for mild decreased uptake in the mid anterior wall in both rest and stress imaging, most consistent with soft tissue attenuation but cannot rule out an area of mild ischemia/scar. EKG gated imaging showed LV EF at 35 %, rest and stress gated EF similar visually. T. I D. ratio was 1.13. Lung heart ratio noted to be within normal limits 0.30. No significant extracardiac and abnormal radiotracer activities were noted. RV free wall uptake was noted to be normal. IMPRESSION: Also refer to comments under nuclear interpretation. Also test results needs to be interpreted in the context of pretest probability. 1. There is no definitive scintigraphic evidence of LexiScan induced myocardial ischemia, except for mild decreased uptake in the mid anterior wall in both rest and stress imaging, most consistent with soft tissue attenuation but cannot rule out an area of mild ischemia/scar. 2. There is no definitive scintigraphic evidence of myocardial infarction/scar. 3. EKG gated imaging shows left ejection fraction of approximately 35 %. 4. Clinical correlation requested as occasionally single vessel disease or balanced ischemia could be missed. In approximately 10% of the cases Lexiscan may not cause adequate vasodilatory stress. RECOMMENDATIONS: Aggressive risk factor modification, medical therapy. Clinical correlation with echocardiogram derived ejection fraction. Inability to exercise by itself can lead to increased cardiovascular event risks. Consider cardiology consultation if clinically indicated. I AM AVAILABLE FOR CARDIOLOGY CONSULTATION AND FOLLOWUP IF REQUESTED BY PMD Yaquelin Mendoza M.D., M[employer]IN [employer]ave[employer] Counselor supervisor claims, Board certified in cardiovascular diseases, Nuclear cardiology, Echocardiography Cardiac CT and cardiac MRI Ph. [phone] [facility]
--- NOTE | 2016-07-02 12:25 | PDOC PROGRESS REPORT ---
Subjective Progress Note for:: 07/02/16 Subjective:: Patient seems to be doing better with gradual improvement. Pt is denying any chest arm or neck discomfort. Patient denying any PND, orthopnea. Patient denied any sustained palpitations, dizziness, syncope, near syncope. Patient denying any fever chills. Patient denying any other significant discomfort. Patient is maintaining sinus rhythm. Patient converted to sinus yesterday. Review of systems: Rest review of systems negative. Medications: Medications have been reviewed. Nuclear stress test procedure was explained to the patient in detail. Risks benefits were discussed and informed consent was obtained. Alternatives were discussed. Patient informed that based on risk factors, physical exam, lab data findings and symptoms there is at least intermediate probability of underlying CAD. Nuclear stress test procedure was therefore scheduled. Physical Exam Vital Signs: Temp Pulse Resp BP Pulse Ox 97.6 F 65 19 167/76 H 100 07/02/16 07:32 07/02/16 07:32 07/02/16 07:32 07/02/16 07:32 07/02/16 07:32 Intake & Output 07/01/16 07/02/16 07/03/16 06:59 06:59 06:59 Intake Total 1497 Balance 1497 Weight 116.8 kg Exam: GENERAL: well-nourished and in no acute distress. Alert and oriented x3 HEAD: Atraumatic, normocephalic. EYES: Pupils equal round and reactive to light, extraocular movements intact, sclera anicteric, conjunctiva are normal. ENT: TMs normal, nares patent, oropharynx clear without exudates. Moist mucous membranes. No oral ulcerations or bleeding gums noted NECK: supple without lymphadenopathy. Trachea is central. No cervical or axillary lymphadenopathy noted. Carotids are 2+, JVD WNL LUNGS: Respiration seems nonlabored, no significant accessory muscle action noted. Breath sounds clear to auscultation bilaterally and equal. No wheezes rales or rhonchi. No significant dullness noted on percussion. CHEST: Palpation of the chest wall shows no significant chest wall tenderness or abnormalities. HEART: [place] PANEL LAMINATOR, No PSH, 1/6 NADER aortic area, 1/6 browne systolic murmur mitral area, no rubs, no gallops. ABDOMEN: Soft, no significant tenderness appreciated, normoactive bowel sounds. No guarding, no rebound. No rigidity noted . No masses appreciated. EXTREMITIES: Pedal pulses are 1-2+, no calf tenderness noted. No clubbing or cyanosis.trace to 1+ pedal edema noted NEUROLOGICAL: Focused neurological exam showed no significant neurologic deficit. Normal speech, no focal weakness appreciated. PSYCH: Normal mood, normal affect. Judgment and insight within normal limits. SKIN: No significant ecchymosis, rash, ulcerations or signs of pruritus noted. MUSCULOSKELETAL EXAM: No significant joint swelling noted. Results Laboratory Results: 07/02/16 03:50 07/02/16 03:50 07/02/16 07/02/16 03:50 03:50 WBC 6.4 RBC 5.17 Hgb 13.1 L Hct 39.3 MCV 76 L MCH 25.3 L MCHC 33.3 RDW 14.9 H Plt Count 150 Seg Neutrophils % 61.6 Lymphocytes % 25.0 Monocytes % 8.0 Eosinophils % 4.3 Basophils % 1.1 Absolute Neutrophils 3.9 Absolute Lymphocytes 1.6 Absolute Monocytes 0.5 Absolute Eosinophils 0.3 Absolute Basophils 0.1 Sodium 137.5 Potassium 4.2 Chloride 100 Carbon Dioxide 28 Anion Gap 10 BUN 31 H Creatinine 2.26 H Est GFR ( Amer) 37 L Est GFR (Non-Af Amer) 31 L Glucose 193 H Calcium 9.0 Total Bilirubin 0.6 AST 26 ALT 13 L Alkaline Phosphatase 42 Total Protein 6.2 L Albumin 2.9 L Impressions: Chest X-Ray 06/30/16 18:36 IMPRESSION: No acute consolidations or pleural effusions are identified. Other findings as noted above. Assessment & Plan - Diagnosis (1) Hypertension Qualifiers: Hypertension type: essential hypertension Qualified Code(s): I10 - Essential (primary) hypertension Is this a current diagnosis for this admission?: Yes (2) Abnormal electrocardiogram Is this a current diagnosis for this admission?: Yes (3) Renal insufficiency Is this a current diagnosis for this admission?: Yes (4) Paroxysmal atrial fibrillation Is this a current diagnosis for this admission?: Yes (5) Elevated troponin I level Is this a current diagnosis for this admission?: Yes (6) Diabetes mellitus Qualifiers: Diabetes mellitus type: type 2 Chronic kidney disease stage: stage 2 ( mild) Is this a current diagnosis for this admission?: Yes (7) Dyslipidemia Is this a current diagnosis for this admission?: Yes (8) Obesity Qualifiers: Obesity type: unspecified obesity type Obesity severity: unspecified obesity severity Qualified Code(s): E66.9 - Obesity, unspecified Is this a current diagnosis for this admission?: Yes (9) Sleep disorder Is this a current diagnosis for this admission?: Yes - Notes Notes: Patient's hypertension still elevated. May consider increasing carvedilol to 50 mg by mouth twice a day. Renal insufficiency: Stable. Paroxysmal atrial fibrillation: Rate is reasonably well controlled. Patient currently in sinus rhythm. Recommend chronic anticoagulation. If patient has recurrence of atrial fibrillation, we will consider antiarrhythmic therapy. Multaq may be the best option. Elevated troponin I: This was evaluated with a nuclear stress test. Diabetes:Recommend good control of blood sugar. However should avoid any hypoglycemia. Preferred agent for blood pressure control with the SELVIN inhibitor or angiotensin receptor blockers. Patient encouraged with low carbohydrate, low cholesterol diet and also regular walking program. Discussed that good control of blood sugar would reduce risk of future microvascular and macrovascular complications. Dyslipidemia: Patient noted to have dyslipidemia. LDL goal is less than 70. Recommend statin therapy at least intermediate or high dose, of high potency status. Periodic lipid panel and liver panel is indicated. Patient to report any significant muscle discomfort or other side effects. Sleep disorder: Based on patient's symptoms, oropharyngeal exam, body habitus, comorbid diagnosis etc., there is high probability of underlying sleep apnea syndrome. Evaluation is recommended for sleep apnea as treatment of this condition if found is likely to benefit patient and reduce patient's future cardiovascular risk. - Time Time with patient: Greater than 35 minutes - Patient was seen multiple times. Total time exceeds 40 minutes. In the morning nuclear stress test procedure, risks benefits, alternatives were discussed. Patient seen during the stress test. Patient also seen after stress test when results were discussed with the patient in detail. Patient's questions were answered. Nuclear stress test results were discussed with the patient. Patient was informed that no definitive evidence of pharmacologic stress-induced ischemia noted. No definite fixed defects were noted,except for mild decreased uptake in the mid anterior wall in both rest and stress imaging, most consistent with soft tissue attenuation but cannot rule out an area of mild ischemia/scar. Patient informed that occasionally significant single vessel disease or balanced ischemia could be missed. However based on the current study results, would recommend aggressive risk factor modification and medical therapy. It may also be worthwhile to consider evaluation or empiric management of other causes of chest pain. Should no other cause be found and if persistent in having chest pain, then cardiac catheterization should be considered. Right now, recommendations are for aggressive risk factor modification and medical management. Medications reviewed and adjusted accordingly: Yes
--- NOTE | 2016-07-02 14:37 | Physician Advisory Note ---
Physician Advisor ProgressNote .: [facility] have reviewed [facility] medical record for this patient. Physician Advisor Statement: Nice documentation of Ac on chr diastolic CHF. Possible documentation opportunities if attending agrees: 1. "Chr Kidney Dz stage 3" Thanks for your help with documentation accuracy/specificity improvement! Fior Montero MD [facility] Physician Advisor, Fellow of Hospital Medicine
[2016-07-02] MEDS ORDERED: DILTIAZEM HCL 240 MG CAPSULE.CR PO SCH (22:00)
[2016-07-02] MEDS: ATORVASTATIN CALCIUM 20 MG TABLET PO SCH (22:27)
[2016-07-02] MEDS: INSULIN GLARGINE,HUM.REC.ANLOG 300 UNIT/3 ML INSULN.PEN SUBCUT SCH (22:28)
[2016-07-03 05:14] LABS: ABSOLUTE EOSINOPHILS # (AUTO) 0.3 10^3/uL (0.0-0.6); ABSOLUTE LYMPHOCYTES (AUTO) 1.2 10^3/uL (0.5-4.7); ABSOLUTE MONOCYTES (AUTO) 0.5 10^3/uL (0.1-1.4); ABSOLUTE NEUT (AUTO) 3.3 10^3/uL (1.7-8.2); BASOPHILS % (AUTO) 0.4 % (0-2); EOSINOPHILS % (AUTO) 6.2 % (0-6); LYMPHOCYTES % (AUTO) 22.1 % (13-45); MEAN CORPUSCULAR HGB CONC 32.4 g/dL (32.0-36.0); MEAN CORPUSCULAR VOLUME 77 fl (80-97); MONOCYTES % (AUTO) 9.7 % (3-13); RED CELL DISTRIBUTION WIDTH 14.7 % (11.5-14.0); SEGMENTED NEUTROPHILS % (AUTO) 61.6 % (42-78); WHITE BLOOD COUNT 5.3 10^3/uL (4.0-10.5)
[2016-07-03 05:17] LABS: PROTHROMBIN TIME 17.6 SEC (11.4-15.4)
[2016-07-03 05:32] LABS: ALANINE AMINOTRANSFERASE 20 U/L (21-72); ALBUMIN 3.5 g/dL (3.5-5.0); ALKALINE PHOSPHATASE 45 U/L (38-126); ANION GAP 11 (5-19); ASPARTATE AMINO TRANSFERASE 16 U/L (17-59); BILIRUBIN,TOTAL 0.7 mg/dL (0.2-1.3); BLOOD UREA NITROGEN 28 mg/dL (7-20); CALCIUM 9.2 mg/dL (8.4-10.2); CARBON DIOXIDE 27 mmol/L (22-30); CHLORIDE 101 mmol/L (98-107); CREATININE RESULT 1.93 mg/dL (0.52-1.25); GLUCOSE 96 mg/dL (75-110); SODIUM 138.9 mmol/L (137-145); TOTAL PROTEIN 6.6 g/dL (6.3-8.2)
[2016-07-03] MEDS: LANSOPRAZOLE 30 MG TAB.RAP.DR PO SCH (06:35)
[2016-07-03] MEDS: CLONIDINE HCL 0.2 MG TABLET PO SCH (06:36)
[2016-07-03] MEDS: HYDRALAZINE HCL 50 MG TABLET PO SCH (06:37)
[2016-07-03 07:50] VITALS: BP 158/75
[2016-07-03] MEDS: SPIRONOLACTONE 25 MG TABLET PO SCH (09:58)
[2016-07-03] MEDS: FUROSEMIDE 40 MG TABLET PO SCH (09:59)
[2016-07-03] MEDS: APIXABAN 2.5 MG TABLET PO SCH (09:59)
[2016-07-03] MEDS: FERROUS SULFATE 325 MG TABLET PO SCH (09:59)
[2016-07-03] MEDS: POTASSIUM CHLORIDE 10 MEQ TABLET.SA PO SCH (09:59)
[2016-07-03] MEDS: CHOLECALCIFEROL (D3) 1,000 UNIT TABLET PO SCH (09:59)
[2016-07-03] MEDS: CARVEDILOL 12.5 MG TABLET PO SCH (10:00)
--- NOTE | 2016-07-03 12:59 | PDOC DISCHARGE SUMMARY ---
General - Admit/Disc Date/PCP Admission Date/Primary Care Provider: 07/01/16 23:44 ERMA DESAI Discharge Date: 07/03/16 - Discharge Diagnosis (1) New onset a-fib Is this a current diagnosis for this admission?: Yes (2) Diabetes mellitus Is this a current diagnosis for this admission?: Yes (3) Hypertension Is this a current diagnosis for this admission?: Yes (4) Congestive heart failure (CHF) Is this a current diagnosis for this admission?: Yes (5) Hyperlipidemia Is this a current diagnosis for this admission?: Yes (6) Chronic kidney disease (CKD) Is this a current diagnosis for this admission?: Yes (7) Vitamin D deficiency Is this a current diagnosis for this admission?: No (8) Elevated troponin I level Is this a current diagnosis for this admission?: Yes (9) Obesity Is this a current diagnosis for this admission?: Yes (10) DVT prophylaxis Is this a current diagnosis for this admission?: Yes (11) Sleep apnea, obstructive Is this a current diagnosis for this admission?: Yes - Additional Information Resuscitation Status: Full Code Discharge Diet: As Tolerated, Diabetic Discharge Activity: Activity As Tolerated, Balance Activity w/Rest Home Medications: Carvedilol [Coreg 25 mg Tablet] 25 mg PO Q12 06/30/16 Clonidine HCl [Catapres 0.1 mg Tablet] 0.2 mg PO Q8 06/30/16 Furosemide [Lasix 40 mg Tablet] 40 mg PO DAILY 06/30/16 Hydralazine HCl [Apresoline 50 mg Tablet] 100 mg PO Q8 06/30/16 Potassium Chloride [Klor-Con 10 Meq Tablet.sa] 10 meq PO DAILY 06/30/16 Spironolactone [Aldactone 25 mg Tablet] 50 mg PO DAILY 06/30/16 Cholecalciferol (Vitamin D3) [Vitamin D3 2000 unit Tablet] 2,000 unit PO DAILY 07/01/16 Ferrous Sulfate [Iron] 325 mg PO BID 07/01/16 Apixaban [Eliquis 2.5 mg Tablet] 2.5 mg PO BID #60 tablet 07/03/16 Atorvastatin Calcium [Lipitor 20 mg Tablet] 20 mg PO QHS #30 tablet 07/03/16 Diltiazem HCl [Cardizem Cd 240 mg Capsule.cr] 240 mg PO QHS #30 capsule.cr 07/03 Insulin Glargine,Hum.rec.anlog [Lantus Insulin 100 Unit/mL] 30 unit SUBCUT [facility] # 0 insuln.pen 07/03/16 History of Present Illness History of Present Illness: 55 yr old man with hx of DM/Hypertension/Hyperlipidemia/CHF- diastolic dysfunction/CKD stage3/Vitamin D deff./Morbid obesity who is chronically non- compliant with medications and office appointments. He started having palpitations, weakness, fatigue and dyspnea around 3.00 pm on the day of presentation. Denied chest pain, syncope, nausea/vomiting, cough and diaphoresis. He came to ER and was found to be in A-fib with RVR. He was put on Adenosine, Cardizem drip heparin drip.His BG was 445 and BP was also high. He was admitted for Afib with RVR, uncontrolled DM and HTN. Hospital Course Hospital Course: 55 yr old man who has treated for new onset A-fib with RVR that converted spontaneously to sinus rhythm on day 2 of admission. He had serial EKG and cardiac enzymes and cardiolyte stress test that was essentially normal.Had ECHO that showed severe LVH. He will f/u with Dr Kelly falcon sleep study on outpatient to confirm obstructive sleep apnea. He will D/C home with Atorvastatin, Eliquis and Cardizem CD in addition to his regular medications. He had extensive counseling on compliance to medication and diet. Physical Exam Vital Signs: Temp Pulse Resp BP Pulse Ox 97.2 F 57 L 19 158/75 H 98 07/03/16 10:05 07/03/16 10:05 07/03/16 10:05 07/03/16 10:05 07/03/16 10:05 Intake & Output 07/02/16 07/03/16 07/04/16 06:59 06:59 06:59 Intake Total 1497 1766 Balance 1497 1766 Weight 116.8 kg 117.2 kg Results Laboratory Results: 07/03/16 04:00 07/03/16 04:00 07/03/16 07/03/16 04:00 04:00 WBC 5.3 RBC 5.20 Hgb 13.0 L Hct 40.0 MCV 77 L MCH 25.0 L MCHC 32.4 RDW 14.7 H Plt Count 165 Seg Neutrophils % 61.6 Lymphocytes % 22.1 Monocytes % 9.7 Eosinophils % 6.2 H Basophils % 0.4 Absolute Neutrophils 3.3 Absolute Lymphocytes 1.2 Absolute Monocytes 0.5 Absolute Eosinophils 0.3 Absolute Basophils 0.0 Sodium 138.9 Potassium 4.0 Chloride 101 Carbon Dioxide 27 Anion Gap 11 BUN 28 H Creatinine 1.93 H Est GFR ( Amer) 44 L Est GFR (Non-Af Amer) 37 L Glucose 96 Calcium 9.2 Total Bilirubin 0.7 AST 16 L ALT 20 L Alkaline Phosphatase 45 Total Protein 6.6 Albumin 3.5 Impressions: Chest X-Ray 06/30/16 18:36 IMPRESSION: No acute consolidations or pleural effusions are identified. Other findings as noted above.
--- NOTE | 2016-07-04 15:31 | PDOC PROGRESS REPORT ---
Subjective Progress Note for:: 07/03/16 Subjective:: Patient seems to be doing better with gradual improvement. Pt is denying any chest arm or neck discomfort. Patient denying any PND, orthopnea. Patient denied any sustained palpitations, dizziness, syncope, near syncope. Patient denying any fever chills. Patient denying any other significant discomfort. Patient is maintaining sinus rhythm. Patient converted to sinus bradycardia before yesterday and is maintaining sinus rhythm. Patient has a history of noncompliance.. Review of systems: Rest review of systems negative. Medications: Medications have been reviewed. Nuclear stress test results were again reviewed with the patient and his girlfriend. Physical Exam Vital Signs: Temp Pulse Resp BP Pulse Ox 97.2 F 57 L 19 158/75 H 98 07/03/16 10:05 07/03/16 10:05 07/03/16 10:05 07/03/16 10:05 07/03/16 10:05 Intake & Output 07/02/16 07/03/16 07/04/16 06:59 06:59 06:59 Intake Total 1497 1766 Balance 1497 1766 Weight 116.8 kg 117.2 kg Exam: GENERAL: well-nourished and in no acute distress. Alert and oriented x3 HEAD: Atraumatic, normocephalic. EYES: Pupils equal round and reactive to light, extraocular movements intact, sclera anicteric, conjunctiva are normal. ENT: TMs normal, nares patent, oropharynx clear without exudates. Moist mucous membranes. No oral ulcerations or bleeding gums noted NECK: supple without lymphadenopathy. Trachea is central. No cervical or axillary lymphadenopathy noted. Carotids are 2+, JVD WNL LUNGS: Respiration seems nonlabored, no significant accessory muscle action noted. Breath sounds clear to auscultation bilaterally and equal. No wheezes rales or rhonchi. No significant dullness noted on percussion. CHEST: Palpation of the chest wall shows no significant chest wall tenderness or abnormalities. 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 ABDOMEN: Soft, no significant tenderness appreciated, normoactive bowel sounds. No guarding, no rebound. No rigidity noted . No masses appreciated. EXTREMITIES: Pedal pulses are 1-2+, no calf tenderness noted. No clubbing or cyanosis.trace to 1+ pedal edema noted NEUROLOGICAL: Focused neurological exam showed no significant neurologic deficit. Normal speech, no focal weakness appreciated. PSYCH: Normal mood, normal affect. Judgment and insight within normal limits. SKIN: No significant ecchymosis, rash, ulcerations or signs of pruritus noted. MUSCULOSKELETAL EXAM: No significant joint swelling noted. Results Laboratory Results: 07/03/16 04:00 07/03/16 04:00 07/03/16 07/03/16 04:00 04:00 WBC 5.3 RBC 5.20 Hgb 13.0 L Hct 40.0 MCV 77 L MCH 25.0 L MCHC 32.4 RDW 14.7 H Plt Count 165 Seg Neutrophils % 61.6 Lymphocytes % 22.1 Monocytes % 9.7 Eosinophils % 6.2 H Basophils % 0.4 Absolute Neutrophils 3.3 Absolute Lymphocytes 1.2 Absolute Monocytes 0.5 Absolute Eosinophils 0.3 Absolute Basophils 0.0 Sodium 138.9 Potassium 4.0 Chloride 101 Carbon Dioxide 27 Anion Gap 11 BUN 28 H Creatinine 1.93 H Est GFR ( Amer) 44 L Est GFR (Non-Af Amer) 37 L Glucose 96 Calcium 9.2 Total Bilirubin 0.7 AST 16 L ALT 20 L Alkaline Phosphatase 45 Total Protein 6.6 Albumin 3.5 Impressions: Chest X-Ray 06/30/16 18:36 IMPRESSION: No acute consolidations or pleural effusions are identified. Other findings as noted above. Assessment & Plan - Diagnosis (1) Hypertension Qualifiers: Hypertension type: essential hypertension Qualified Code(s): I10 - Essential (primary) hypertension Is this a current diagnosis for this admission?: Yes (2) Abnormal electrocardiogram Is this a current diagnosis for this admission?: Yes (3) Renal insufficiency Is this a current diagnosis for this admission?: Yes (4) Paroxysmal atrial fibrillation Is this a current diagnosis for this admission?: Yes (5) Elevated troponin I level Is this a current diagnosis for this admission?: Yes (6) Diabetes mellitus Qualifiers: Diabetes mellitus type: type 2 Chronic kidney disease stage: stage 2 ( mild) Is this a current diagnosis for this admission?: Yes (7) Dyslipidemia Is this a current diagnosis for this admission?: Yes (8) Obesity Qualifiers: Obesity type: unspecified obesity type Obesity severity: unspecified obesity severity Qualified Code(s): E66.9 - Obesity, unspecified Is this a current diagnosis for this admission?: Yes (9) Sleep disorder Is this a current diagnosis for this admission?: Yes - Notes Notes: Patient's hypertension still elevated. But better control. Patient has a history of noncompliance. Renal insufficiency: Stable. Paroxysmal atrial fibrillation: Rate is reasonably well controlled. Patient currently in sinus rhythm. Recommend chronic anticoagulation. If patient has recurrence of atrial fibrillation, we will consider antiarrhythmic therapy. Patient currently on ELIQUIS for chronic anticoagulation. Elevated troponin I: This was evaluated with a nuclear stress test. Nuclear stress test was felt to be on the low risk side. Results were again discussed with the patient. Diabetes:Recommend good control of blood sugar. However should avoid any hypoglycemia. Preferred agent for blood pressure control with the SELVIN inhibitor or angiotensin receptor blockers. Patient encouraged with low carbohydrate, low cholesterol diet and also regular walking program. Discussed that good control of blood sugar would reduce risk of future microvascular and macrovascular complications. Dyslipidemia: Patient noted to have dyslipidemia. LDL goal is less than 70. Recommend statin therapy at least intermediate or high dose, of high potency status. Periodic lipid panel and liver panel is indicated. Patient to report any significant muscle discomfort or other side effects. Sleep disorder: Based on patient's symptoms, oropharyngeal exam, body habitus, comorbid diagnosis etc., there is high probability of underlying sleep apnea syndrome. Evaluation is recommended for sleep apnea as treatment of this condition if found is likely to benefit patient and reduce patient's future cardiovascular risk. - Time Time with patient: Greater than 35 minutes - This included discussion of results of gram, nuclear stress test, discussion of procedure of sleep study, discussion of adverse effect of untreated sleep apnea, uncontrolled hypertension etc. Medications reviewed and adjusted accordingly: Yes
== END 2016-07-03 10:35 | disposition home or self-care (01) | DRG 308 ==
LOC: ER 18:04 → EH 20:45 → UNDOADMIN 20:45 → EH 07-01 00:15 → 3N 07-01 00:15 → EH 07-01 23:44
PROVIDERS: ADMIT Internal Medicine; ATTEND Internal Medicine
PROC: 3E0234Z Introduction of Serum, Toxoid and Vaccine into Muscle, Percutaneous Approach (ICD-10-PCS; principal; 2016-07-03)
DX: I48.0 Paroxysmal atrial fibrillation (principal); I50.33 Acute on chronic diastolic (congestive) heart failure; I13.0 Hypertensive heart and chronic kidney disease with heart failure and stage 1 through stage 4 chronic kidney disease, or unspecified chronic kidney disease; E11.65 Type 2 diabetes mellitus with hyperglycemia; N18.3 Chronic kidney disease, stage 3 (moderate); E11.22 Type 2 diabetes mellitus with diabetic chronic kidney disease; E78.5 Hyperlipidemia, unspecified; E55.9 Vitamin D deficiency, unspecified; G47.33 Obstructive sleep apnea (adult) (pediatric); E66.01 Morbid (severe) obesity due to excess calories; I47.1 Supraventricular tachycardia; Z68.35 Body mass index [BMI] 35.0-35.9, adult; Z23 Encounter for immunization; Z79.899 Other long term (current) drug therapy; Z91.14 Patient's other noncompliance with medication regimen; Z91.11 Patient's noncompliance with dietary regimen; Z95.1 Presence of aortocoronary bypass graft; Z90.49 Acquired absence of other specified parts of digestive tract; Z98.84 Bariatric surgery status; Z95.2 Presence of prosthetic heart valve; Z95.0 Presence of cardiac pacemaker
CPT/HCPCS: 36415; 71010; 78452; 80053; 80061; 81001; 82550; 82553; 82962; 83036; 83690; 83735; 83880; 84439; 84443; 84484; 85025; 85027; 85610; 85730; 90686; 93005; 93010; 93017; 93306; 96365; 96375; 99291; A9500; J0153; J0280; J1644; J1815; J2785; J3490; Q9969

== ENCOUNTER 2017-11-18 13:52 | Emergency (ER) | payer BC ==
[2017-11-18] MEDS ORDERED: DILTIAZEM HCL INJ 25 MG/5 ML VIAL IV ONE (14:32)
--- NOTE | 2017-11-18 14:35 | ER Document Report ---
ED Medical Screen (RME) - General Chief Complaint: High Blood Pressure Stated Complaint: BLOOD PRESSURE PROBLEM Time Seen by Provider: 11/18/17 14:31 Notes: 57 years old male presents today with elevated blood pressure. He went to the regular doctor for regular checkup and and found the blood pressures be systole 300. Therefore he was referred to the ED. Has no symptoms. Denies any headache dizziness focal weakness. Denies any chest pain shortness of breath. I have greeted and performed a rapid initial assessment of this patient. A comprehensive ED assessment and evaluation of the patient, analysis of test results and completion of the medical decision making process will be conducted by additional ED providers. PHYSICAL EXAMINATION: GENERAL: Well-appearing, well-nourished and in no acute distress. HEAD: Atraumatic, normocephalic. EYES: Pupils equal round extraocular movements intact, conjunctiva are normal. ENT: Nares patent NECK: Normal range of motion LUNGS: No respiratory distress Musculoskeletal: Normal range of motion NEUROLOGICAL: Normal speech, normal gait. PSYCH: Normal mood, normal affect. SKIN: Warm, Dry, normal turgor, no rashes or lesions noted. TRAVEL OUTSIDE OF THE [place] IN LAST 30 DAYS: No - Related Data Allergies/Adverse Reactions: No Known Allergies Allergy (Verified 11/18/17 13:53) Past Medical History - Social History Chew tobacco use (# tins/day): No Frequency of alcohol use: None Drug Abuse: None - Past Medical History Cardiac Medical History: Reports: Hx Congestive Heart Failure, Hx Hypercholesterolemia, Hx Hypertension Pulmonary Medical History: Denies: Hx Tuberculosis Endocrine Medical History: Reports: Hx Diabetes Mellitus Type 2 Renal/ Medical History: Denies: Hx Peritoneal Dialysis Past Surgical History: Denies: Hx Appendectomy, Hx Bowel Surgery, Hx Cholecystectomy, Hx Coronary Artery Bypass Graft, Hx Gastric Bypass Surgery, Hx Herniorrhaphy, Hx Internal Defibrillator, Hx Pacemaker, Hx Tonsillectomy, Hx Valve Replacement, Hx Vascular Surgery - Immunizations Hx Diphtheria, Pertussis, Tetanus Vaccination: Yes Physical Exam - Vital signs Vitals: Temp Pulse Resp BP Pulse Ox 98.8 F 85 20 267/123 H 98 11/18/17 13:57 11/18/17 13:57 11/18/17 13:57 11/18/17 13:57 11/18/17 13:57 Course - Vital Signs Vital signs: Temp Pulse Resp BP Pulse Ox 98.8 F 85 20 186/113 H 98 11/18/17 13:57 11/18/17 13:57 11/18/17 13:57 11/18/17 14:33 11/18/17 13:57 Doctor's Discharge - Discharge Referrals: ERMA DESAI MD [Primary Care Provider] - Follow up as needed
--- NOTE | 2017-11-18 14:53 | RADIOLOGY REPORT (SQ) ---
EXAM DESCRIPTION: CHEST 2 VIEWS COMPLETED DATE/TIME: 11/18/2017 2:45 pm REASON FOR STUDY: Elevated blood pressure chest discomfort COMPARISON: AP chest 06/30/2016, 08/26/2011 EXAM PARAMETERS: NUMBER OF VIEWS: two views TECHNIQUE: Digital Frontal and Lateral radiographic views of the chest acquired. RADIATION DOSE: NA LIMITATIONS: none FINDINGS: LUNGS AND PLEURA: No opacities, masses or pneumothorax. No pleural effusion. MEDIASTINUM AND HILAR STRUCTURES: No masses or contour abnormalities. HEART AND VASCULAR STRUCTURES: Moderate cardiomegaly BONES: No acute findings. HARDWARE: None in the chest. OTHER: No other significant finding. IMPRESSION: Stable moderate cardiomegaly. No acute findings TECHNICAL DOCUMENTATION: JOB ID: [id number] [employer]- All Rights Reserved Reading location - IP/workstation name: [email or web address]
[2017-11-18] MEDS ORDERED: HYDRALAZINE HCL INJ/PF 20 MG/1 ML SDV IV ONE ×2 (15:36→19:06)
--- NOTE | 2017-11-18 15:37 | ER Document Report ---
ED Blood Pressure Problem - General Mode of Arrival: Ambulatory Information source: Patient TRAVEL OUTSIDE OF THE [place] IN LAST 30 DAYS: No <BONIFACIO FARRELL - Last Filed: 11/18/17 17:44> <FREDY JOEL - Last Filed: 11/18/17 19:46> - General Chief Complaint: High Blood Pressure Stated Complaint: BLOOD PRESSURE PROBLEM Time Seen by Provider: 11/18/17 14:31 Notes: Patient is a 57 year old male with Afib, HTN, CHF, Type 2 Diabetes, renal insufficiency presents to the emergency department complaining of high blood pressure. Patient states he was visiting his primary care doctor for a routine check up when he was found to have a systole of 300 and subsequently sent to the emergency department. Patient is asymptomatic. Patient initially reports currently taking Clonidine (3x daily), Eliquis and Lasix without missing any doses, but when asked again, patient states he has been out of his medications for approximately 1 week. According to records, it appears the patient has been without medications for over 1 month. Patient states with his history of CHF he has had associated symptoms of bilateral edema in the lower extremities and shortness of breath. (BONIFACIO FARRELL) - Related Data Allergies/Adverse Reactions: No Known Allergies Allergy (Verified 11/18/17 13:53) Past Medical History - General Information source: Patient - Social History Smoking Status: Never Smoker Chew tobacco use (# tins/day): No Frequency of alcohol use: None Drug Abuse: None Family History: None Patient has suicidal ideation: No Patient has homicidal ideation: No - Past Medical History Cardiac Medical History: Reports: Hx Congestive Heart Failure, Hx Hypercholesterolemia, Hx Hypertension Endocrine Medical History: Reports: Hx Diabetes Mellitus Type 2 Musculoskeltal Medical History: Reports Other - Fracture of the right forearm in childhood, closed treatment. - Immunizations Hx Diphtheria, Pertussis, Tetanus Vaccination: Yes <BONIFACIO FARRELL - Last Filed: 11/18/17 17:44> Review of Systems - Review of Systems Constitutional: No symptoms reported EENT: No symptoms reported Cardiovascular: No symptoms reported Respiratory: No symptoms reported Gastrointestinal: No symptoms reported Genitourinary: No symptoms reported Male Genitourinary: No symptoms reported Musculoskeletal: No symptoms reported Skin: No symptoms reported Hematologic/Lymphatic: No symptoms reported Neurological/Psychological: No symptoms reported -: Yes All other systems reviewed and negative <BONIFACIO FARRELL - Last Filed: 11/18/17 17:44> Physical Exam - General General appearance: Appears well, Alert In distress: None - HEENT Head: Normocephalic, Atraumatic Eyes: Normal Conjunctiva: Normal Extraocular movements intact: Yes Pupils: PERRL Neck: Normal - Respiratory Respiratory status: No respiratory distress Chest status: Nontender Breath sounds: Normal Chest palpation: Normal - Cardiovascular Rhythm: Regular Heart sounds: Normal auscultation Murmur: No Friction rub: No Gallop: None auscultated - Abdominal Inspection: Normal Distension: No distension Bowel sounds: Hyperactive Tenderness: Nontender Organomegaly: No organomegaly - Back Back: Normal - Extremities General upper extremity: Normal ROM General lower extremity: Normal ROM. No: Edema - Neurological Neuro grossly intact: Yes Cognition: Normal Orientation: AAOx4 [place] Coma Scale Eye Opening: Spontaneous [place] Coma Scale Verbal: Oriented [place] Coma Scale Motor: Obeys Commands [place] Coma Scale Total: 15 Speech: Normal - Psychological Associated symptoms: Normal affect, Normal mood <BONIFACIO FARRELL - Last Filed: 11/18/17 17:44> - Vital signs Vitals: Temp Pulse Resp BP Pulse Ox 98.8 F 85 20 267/123 H 98 11/18/17 13:57 11/18/17 13:57 11/18/17 13:57 11/18/17 13:57 11/18/17 13:57 Course - Laboratory Result Diagrams: 11/18/17 15:46 11/18/17 15:46 <BONIFACIO FARRELL - Last Filed: 11/18/17 17:44> - Laboratory Result Diagrams: 11/18/17 15:46 11/18/17 15:46 <FREDY JOEL - Last Filed: 11/18/17 19:46> - Re-evaluation Re-evalutation: 11/18/17 17:30 The patient tells me he has taken all his medications. After reviewing pharmacy records he admits that he has run out of his medication. He states he has been out for over a week. He does specifically state that he did not run out of his Eliquis and did take the dose this morning. He also states that he is not on medication for diabetes and does not need to be , however his blood sugar Is 387 and his A1c is greater than 14.0 11/18/17 19:17 I discussed the patient's case with Dr. Desai, he will see him in the office in the morning. At this time I will give the patient a dose of his hydralazine, Cardizem, Lasix and clonidine. He will be discharged with prescription for the hydralazine and clonidine so he can take them at bedtime and in the morning. 11/18/17 19:45 I tried to order the oral doses of medication for this patient. The first time I put the Cardizem in it did not show up later. I reentered the oral Cardizem dose in front of the nurse so he witnessed it. 8 minutes later he stated it had never crossed over and when we pulled it up somehow it was discontinued 1 minute after he was ordered. I put the order in again, and I hope this time it will cross over so he can give the patient medication. (FREDY JOEL) - Vital Signs Vital signs: Temp Pulse Resp BP Pulse Ox 98.8 F 85 17 193/108 H 98 11/18/17 13:57 11/18/17 13:57 11/18/17 19:01 11/18/17 19:01 11/18/17 19:01 - Laboratory Laboratory results interpreted by me: 11/18/17 11/18/17 11/18/17 14:50 15:46 15:46 Hgb 12.5 L MCV 77 L MCH 25.4 L RDW 14.4 H Sodium 135.9 L BUN 33 H Creatinine 2.06 H Est GFR ( Amer) 41 L Est GFR (Non-Af Amer) 34 L Glucose 387 H Hemoglobin A1c % AST 16 L Total Protein 6.2 L Albumin 3.3 L Urine Protein 100 H Urine Glucose (UA) >=500 H 11/18/17 15:46 Hgb MCV MCH RDW Sodium BUN Creatinine Est GFR ( Amer) Est GFR (Non-Af Amer) Glucose Hemoglobin A1c % > 14.0 H AST Total Protein Albumin Urine Protein Urine Glucose (UA) Critical Care Note - Critical Care Note Total time excluding time spent on procedures (mins): 45 <FREDY JOEL - Last Filed: 11/18/17 19:46> Discharge <BONIFACIO FARRELL - Last Filed: 11/18/17 17:44> <FREDY JOEL - Last Filed: 11/18/17 19:46> - Discharge Clinical Impression: Uncontrolled hypertension, Has run out of medications, Renal insufficiency Uncontrolled diabetes mellitus Qualifiers: Diabetes mellitus type: type 2 Diabetes mellitus group home insulin 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 It is very important that you develop a plan with Dr. Desai to treat these problems. Be sure you do not run out of your medication. You will be given a prescription to fill on your way home for medicine to take tonight and in the morning. Dr. Desai wants to see you in the office tomorrow morning. If you allow your blood pressure to get out of control as it was today, particularly taking Eliquis, you are at extremely high risk for having a catastrophic bleed into your brain. If you do not get control of your diabetes, you will absolutely be on dialysis in a few years and will likely go blind. RETURN TO THE EMERGENCY ROOM IF ANY NEW OR WORSENING SYMPTOMS. Prescriptions: Clonidine HCl 0.2 mg PO ASDIR PRN #2 tablet PRN Reason: Hydralazine HCl 100 mg PO ASDIR PRN #4 tablet PRN Reason: Referrals: ERMA DESAI MD [Primary Care Provider] - Follow up tomorrow Scribe Attestation: 11/18/17 16:12 I personally performed the services described in the documentation, reviewed and edited the documentation which was dictated to the scribe in my presence, and it accurately records my words and actions. (FREDY JOEL) Scribe Documentation - Scribe Written by Joan:: Joan Vang, 11/18/2017 15:39 acting as scribe for :: David <BONIFACIO FARRELL - Last Filed: 11/18/17 17:44>
[2017-11-18 16:17] LABS: ABSOLUTE BASOPHILS # (AUTO) 0.1 10^3/uL (0.0-0.2); ABSOLUTE EOSINOPHILS # (AUTO) 0.2 10^3/uL (0.0-0.6); ABSOLUTE MONOCYTES (AUTO) 0.4 10^3/uL (0.1-1.4); ABSOLUTE NEUT (AUTO) 2.5 10^3/uL (1.7-8.2); BASOPHILS % (AUTO) 1.3 % (0-2); HEMATOCRIT 38.1 % (37.9-51.0); HEMOGLOBIN 12.5 g/dL (13.5-17.0); LYMPHOCYTES % (AUTO) 25.1 % (13-45); MEAN CORPUSCULAR HEMOGLOBIN 25.4 pg (27.0-33.4); MEAN CORPUSCULAR HGB CONC 32.9 g/dL (32.0-36.0); MEAN CORPUSCULAR VOLUME 77 fl (80-97); MONOCYTES % (AUTO) 9.5 % (3-13); PLATELET COUNT 179 10^3/uL (150-450); RED BLOOD COUNT 4.93 10^6/uL (4.35-5.55); RED CELL DISTRIBUTION WIDTH 14.4 % (11.5-14.0); SEGMENTED NEUTROPHILS % (AUTO) 60.1 % (42-78); TOTAL CELLS COUNTED % (AUTO) 100 %; WHITE BLOOD COUNT 4.1 10^3/uL (4.0-10.5)
[2017-11-18 16:28] LABS: ALANINE AMINOTRANSFERASE 25 U/L (21-72); ALBUMIN 3.3 g/dL (3.5-5.0); ALKALINE PHOSPHATASE 41 U/L (38-126); ANION GAP 8 (5-19); ASPARTATE AMINO TRANSFERASE 16 U/L (17-59); BILIRUBIN,DIRECT 0.2 mg/dL (0.0-0.4); BILIRUBIN,TOTAL 0.5 mg/dL (0.2-1.3); BLOOD UREA NITROGEN 33 mg/dL (7-20); CALCIUM 9.1 mg/dL (8.4-10.2); CARBON DIOXIDE 26 mmol/L (22-30); CHLORIDE 102 mmol/L (98-107); CREATINE KINASE 143 U/L (55-170); GLUCOSE 387 mg/dL (75-110); POTASSIUM 4.2 mmol/L (3.6-5.0); SODIUM 135.9 mmol/L (137-145); TOTAL PROTEIN 6.2 g/dL (6.3-8.2)
[2017-11-18 16:39] LABS: CREATINE KINASE MB 1.87 ng/mL (<4.55)
[2017-11-18 16:42] LABS: TROPONIN I 0.073 ng/mL
[2017-11-18 18:09] LABS: APPEARANCE,URINE CLEAR; BILIRUBIN,URINE NEGATIVE (NEGATIVE); COLOR,URINE YELLOW; GLUCOSE, URINE >=500 mg/dL (NEGATIVE); KETONES,URINE NEGATIVE (NEGATIVE); LEUKOCYTE ESTERASE,URINE NEGATIVE (NEGATIVE); NITRITE,URINE NEGATIVE (NEGATIVE); PROTEIN,URINE 100 mg/dL (NEGATIVE); URINE SPECIFIC GRAVITY 1.023; UROBILINOGEN,URINE NEGATIVE mg/dL (<2.0)
[2017-11-18] MEDS ORDERED: HYDRALAZINE HCL 50 MG TABLET PO ONE (19:07)
[2017-11-18] MEDS ORDERED: FUROSEMIDE 40 MG TABLET PO ONE (19:15)
[2017-11-18] MEDS ORDERED: CLONIDINE HCL 0.2 MG TABLET PO ONE (19:16)
[2017-11-18] MEDS ORDERED: DILTIAZEM HCL 240 MG CAPSULE.CR PO ONE ×2 (19:36→19:44)
[2017-11-18 19:59] VITALS: BP 205/110
--- NOTE | 2017-11-18 23:11 | EKG REPORT ---
SEVERITY:- ABNORMAL ECG - SINUS RHYTHM LVH WITH SECONDARY REPOLARIZATION ABNORMALITY ABNORMAL T, PROBABLE ISCHEMIA, LATERAL LEADS ANTERIOR ST ELEVATION, PROBABLY DUE TO LVH : Confirmed by: Yaquelin Mendoza 18-Nov-2017 23:10:40
== END 2017-11-18 20:02 | disposition home or self-care (01) ==
LOC: ER 13:52
DX: I11.0 Hypertensive heart disease with heart failure (principal); N28.9 Disorder of kidney and ureter, unspecified; E11.65 Type 2 diabetes mellitus with hyperglycemia; I50.9 Heart failure, unspecified; I48.91 Unspecified atrial fibrillation; I10 Essential (primary) hypertension; Z79.02 Long term (current) use of antithrombotics/antiplatelets
CPT/HCPCS: 93005; 99285; 96374; 36415; 82553; 82550; 85025; 80053; 81001; 84484; 83036; 71046; 93010; J0360

== ENCOUNTER 2019-07-03 15:09 | Emergency (ER) | payer BC ==
--- NOTE | 2019-07-03 16:05 | ER Document Report ---
ED Medical Screen (RME) - General Chief Complaint: Shortness Of Breath Stated Complaint: SHORTNESS OF BREATH Time Seen by Provider: 07/03/19 15:57 Primary Care Provider: ERMA DESAI MD [Primary Care Provider] - Follow up as needed Mode of Arrival: Ambulatory Information source: Patient Notes: 58-year-old with history of A. fib CHF diabetes hypertension presents emergency department with complaints of shortness of breath since . Reports he was at work he had to leave because he was so short of breath. He reports that he often has to stop because he is so short of breath while walking. Also reports he is not comfortably laying flat when sleeping. Patient reports he just recently returned to taking Eliquis because he could not afford in the past . He also reports they just took him off his Lasix. He reports he went to [facility] and they gave him clonidine for his blood pressure and told him he had to come here. I have greeted and performed a rapid initial assessment of this patient. A comprehensive ED assessment and evaluation of the patient, analysis of test results and completion of the medical decision making process will be conducted by additional ED providers. TRAVEL OUTSIDE OF THE [place] IN LAST 30 DAYS: No - Related Data Allergies/Adverse Reactions: No Known Allergies Allergy (Verified 04/20/18 11:04) Past Medical History - Past Medical History Cardiac Medical History: Reports: Hx Congestive Heart Failure, Hx Hypercholesterolemia, Hx Hypertension Pulmonary Medical History: Denies: Hx Tuberculosis Endocrine Medical History: Reports: Hx Diabetes Mellitus Type 1, Hx Diabetes Mellitus Type 2 Renal/ Medical History: Denies: Hx Peritoneal Dialysis Past Surgical History: Denies: Hx Appendectomy, Hx Bowel Surgery, Hx Cholecystectomy, Hx Coronary Artery Bypass Graft, Hx Gastric Bypass Surgery, Hx Herniorrhaphy, Hx Internal Defibrillator, Hx Pacemaker, Hx Tonsillectomy, Hx Valve Replacement, Hx Vascular Surgery - Immunizations Hx Diphtheria, Pertussis, Tetanus Vaccination: Yes Physical Exam - Vital signs Vitals: Temp Pulse Resp BP Pulse Ox 97.9 F 67 20 163/88 H 92 07/03/19 15:36 07/03/19 15:36 07/03/19 15:36 07/03/19 15:36 07/03/19 15:36 Course - Vital Signs Vital signs: Temp Pulse Resp BP Pulse Ox 97.9 F 67 20 163/88 H 92 07/03/19 15:36 07/03/19 15:36 07/03/19 15:36 07/03/19 15:36 07/03/19 15:36 Doctor's Discharge - Discharge Referrals: ERMA DESAI MD [Primary Care Provider] - Follow up as needed
--- NOTE | 2019-07-03 16:47 | RADIOLOGY REPORT (SQ) ---
EXAM DESCRIPTION: CHEST 2 VIEWS COMPLETED DATE/TIME: 07/03/2019 3:29 pm REASON FOR STUDY: SOB COMPARISON: Chest radiograph 04/20/2018 EXAM PARAMETERS: NUMBER OF VIEWS: two views TECHNIQUE: Digital Frontal and Lateral radiographic views of the chest acquired. RADIATION DOSE: NA LIMITATIONS: none FINDINGS: LUNGS AND PLEURA: New patchy areas of consolidation in the right upper and left upper lobe s. Probable small right pleural effusion. No pneumothorax. MEDIASTINUM AND HILAR STRUCTURES: No masses or contour abnormalities. HEART AND VASCULAR STRUCTURES: Moderate cardiomegaly. No pulmonary vascular congestion. BONES: No acute findings. HARDWARE: None in the chest. OTHER: No other significant finding. IMPRESSION: New patchy bilateral areas of consolidation suggestive of multifocal pneumonia. TECHNICAL DOCUMENTATION: JOB ID: [id number] [employer]- All Rights Reserved Reading location - IP/workstation name: [email or web address]
[2019-07-03 16:57] LABS: ABSOLUTE BASOPHILS # (AUTO) 0.1 10^3/uL (0.0-0.2); ABSOLUTE EOSINOPHILS # (AUTO) 0.1 10^3/uL (0.0-0.6); ABSOLUTE LYMPHOCYTES (AUTO) 0.8 10^3/uL (0.5-4.7); ABSOLUTE MONOCYTES (AUTO) 0.5 10^3/uL (0.1-1.4); ABSOLUTE NEUT (AUTO) 5.6 10^3/uL (1.7-8.2); BASOPHILS % (AUTO) 1.3 % (0-2); EOSINOPHILS % (AUTO) 1.9 % (0-6); HEMATOCRIT 36.9 % (37.9-51.0); LYMPHOCYTES % (AUTO) 10.9 % (13-45); MEAN CORPUSCULAR HEMOGLOBIN 25.3 pg (27.0-33.4); MEAN CORPUSCULAR HGB CONC 32.6 g/dL (32.0-36.0); MEAN CORPUSCULAR VOLUME 78 fl (80-97); MONOCYTES % (AUTO) 6.9 % (3-13); PLATELET COUNT 243 10^3/uL (150-450); RED BLOOD COUNT 4.76 10^6/uL (4.35-5.55); RED CELL DISTRIBUTION WIDTH 16.5 % (11.5-14.0); TOTAL CELLS COUNTED % (AUTO) 100 %; WHITE BLOOD COUNT 7.1 10^3/uL (4.0-10.5)
[2019-07-03 17:13] LABS: ALBUMIN 3.4 g/dL (3.5-5.0); ALKALINE PHOSPHATASE 84 U/L (38-126); ANION GAP 13 (5-19); ASPARTATE AMINO TRANSFERASE 20 U/L (17-59); BILIRUBIN,DIRECT 0.4 mg/dL (0.0-0.4); BILIRUBIN,TOTAL 1.4 mg/dL (0.2-1.3); BLOOD UREA NITROGEN 47 mg/dL (7-20); CALCIUM 9.6 mg/dL (8.4-10.2); CARBON DIOXIDE 23 mmol/L (22-30); CHLORIDE 98 mmol/L (98-107); GLUCOSE 397 mg/dL (75-110); TOTAL PROTEIN 6.9 g/dL (6.3-8.2)
[2019-07-03 17:26] LABS: TROPONIN I 0.064 ng/mL
--- NOTE | 2019-07-03 17:50 | EKG REPORT ---
SEVERITY:- ABNORMAL ECG - ATRIAL FIBRILLATION ABNORMAL T, CONSIDER ISCHEMIA, LATERAL LEADS : Confirmed by: Yaquelin Mendoza 03-Jul-2019 17:49:46
[2019-07-03] MEDS ORDERED: FUROSEMIDE INJ/PF 40 MG/4 ML SDV IV ONE (17:52)
[2019-07-03] MEDS ORDERED: INSULIN REG, HUMAN 100 UNIT/ML 3 ML VIAL (PYX) SUBCUT ONE (17:53)
--- NOTE | 2019-07-03 20:08 | ER Document Report ---
ED General - General Chief Complaint: Shortness Of Breath Stated Complaint: SHORTNESS OF BREATH Time Seen by Provider: 07/03/19 15:57 Primary Care Provider: ERMA DESAI MD [Primary Care Provider] - Follow up as needed Mode of Arrival: Ambulatory Information source: Patient TRAVEL OUTSIDE OF THE [place] IN LAST 30 DAYS: No - HPI Onset: Other - over the last few days Onset/Duration: Gradual Quality of pain: No pain Severity: Moderate Pain Level: Denies Associated symptoms: Productive cough, Shortness of breath Exacerbated by: Movement, Other - laying down Relieved by: Remaining still Similar symptoms previously: No Recently seen / treated by doctor: No Notes: 58 year old male with a history of HTN, HLD, CHF, CKD, DM here for shortness of breath and a mild cough which seems to be worsening over the last few days. The patient first noticed his shortness of breath while working at [employer] last week. The patient says he has trouble laying flat to sleep and exertion makes the shortness of breath worse. The patient denies fevers, chills, sweats, or signs of an infectious process. - Related Data Allergies/Adverse Reactions: No Known Allergies Allergy (Verified 04/20/18 11:04) Home Medications: Eliquis, Lantus, Iron, Amlodipine Past Medical History - General Information source: Patient - Social History Smoking Status: Never Smoker Frequency of alcohol use: Occasional Drug Abuse: None Family History: None, Reviewed & Not Pertinent Patient has suicidal ideation: No Patient has homicidal ideation: No - Past Medical History Cardiac Medical History: Reports: Hx Congestive Heart Failure, Hx Hypercholesterolemia, Hx Hypertension Pulmonary Medical History: Denies: Hx Tuberculosis Endocrine Medical History: Reports: Hx Diabetes Mellitus Type 1, Hx Diabetes Mellitus Type 2 Renal/ Medical History: Denies: Hx Peritoneal Dialysis Past Surgical History: Denies: Hx Appendectomy, Hx Bowel Surgery, Hx Cholecystectomy, Hx Coronary Artery Bypass Graft, Hx Gastric Bypass Surgery, Hx Herniorrhaphy, Hx Internal Defibrillator, Hx Pacemaker, Hx Tonsillectomy, Hx Valve Replacement, Hx Vascular Surgery - Immunizations Hx Diphtheria, Pertussis, Tetanus Vaccination: Yes Review of Systems - Review of Systems Constitutional: No symptoms reported EENT: No symptoms reported Cardiovascular: Orthopnea, Dyspnea Respiratory: Short of breath Gastrointestinal: No symptoms reported Genitourinary: No symptoms reported Male Genitourinary: No symptoms reported Musculoskeletal: No symptoms reported Skin: No symptoms reported Hematologic/Lymphatic: No symptoms reported Neurological/Psychological: No symptoms reported Physical Exam - Vital signs Vitals: Temp Pulse Resp BP Pulse Ox 97.9 F 67 20 163/88 H 92 07/03/19 15:36 07/03/19 15:36 07/03/19 15:36 07/03/19 15:36 07/03/19 15:36 - Notes Notes: GENERAL: Well-appearing, well-nourished and in no acute distress. HEAD: Atraumatic, normocephalic. EYES: Pupils equal round and reactive to light, extraocular movements intact, sclera anicteric, conjunctiva are normal. ENT: TMs normal, nares patent, oropharynx clear without exudates. Moist mucous membranes. NECK: Normal range of motion, supple without lymphadenopathy or JVD. LUNGS: Breath sounds clear to auscultation bilaterally and equal. No wheezes rales or rhonchi. HEART: Regular rate and rhythm without murmurs, rubs or gallops. ABDOMEN: Soft, nontender, normoactive bowel sounds. No guarding, no rebound. No masses appreciated. EXTREMITIES: Normal range of motion, no pitting or edema. No clubbing or cyanosis. NEUROLOGICAL: Cranial nerves II through XII grossly intact. Normal speech, normal gait. PSYCH: Normal mood, normal affect. SKIN: Warm, Dry, normal turgor, no rashes or lesions noted. Course - Re-evaluation Re-evalutation: 07/03/19 20:10 The patient seems to be having a mild heart failure exacerbation. He was taken off Lasix likely due to his significant CKD. Patient was given one dose of IV Lasix in the ER and he diuresed well. Patient's able to ambulate with a pulse ox and he does not desat. Will give patient 5 days of Lasix 20mg daily and will have the patient follow up with his PCP and Onsite Health Coach. - Vital Signs Vital signs: Temp Pulse Resp BP Pulse Ox 97.9 F 67 24 H 164/99 H 94 07/03/19 15:36 07/03/19 15:36 07/03/19 18:37 07/03/19 18:37 07/03/19 18:37 - Laboratory Result Diagrams: 07/03/19 16:39 07/03/19 16:39 Laboratory results interpreted by me: 07/03/19 07/03/19 07/03/19 16:39 16:39 16:39 Hgb 12.0 L Hct 36.9 L MCV 78 L MCH 25.3 L RDW 16.5 H Lymph % (Auto) 10.9 L Seg Neutrophils % 79.0 H Sodium 134.0 L BUN 47 H Creatinine 3.45 H Est GFR ( Amer) 22 L Est GFR (MDRD) Non-Af 19 L Glucose 397 H Total Bilirubin 1.4 H NT-Pro-B Natriuret Pep 5170 H Albumin 3.4 L Discharge - Discharge Clinical Impression: Heart failure Qualifiers: Heart failure type: other Qualified Code(s): I50.89 - Other heart failure; I50.8 - Other heart failure Chronic kidney disease (CKD) Qualifiers: Chronic kidney disease stage: unspecified stage Qualified Code(s): N18.9 - Chronic kidney disease, unspecified Condition: Stable Disposition: HOME, SELF-CARE Instructions: Congestive Heart Failure ([facility]), Kidney Failure ([facility]) Additional Instructions: Take Lasix 20mg daily for the next 5 days to help get some fluid off. Follow up with your primary care doctor or Onsite Health Coach to have your kidney function rechecked in the next week. Speak with your doctors about possibly restarting Lasix if you continue to have symptoms of heart failure but understand Lasix can be hard on your Kidneys. Prescriptions: Furosemide [Lasix 20 mg Tablet] 20 mg PO DAILY 5 Days #5 tablet Referrals: ERMA DESAI MD [Primary Care Provider] - Follow up as needed
[2019-07-03 20:34] VITALS: BP 187/88
== END 2019-07-03 20:20 | disposition home or self-care (01) ==
LOC: ER 15:09
DX: R06.02 Shortness of breath (principal); I50.89 Other heart failure; I13.0 Hypertensive heart and chronic kidney disease with heart failure and stage 1 through stage 4 chronic kidney disease, or unspecified chronic kidney disease; E11.22 Type 2 diabetes mellitus with diabetic chronic kidney disease; N18.9 Chronic kidney disease, unspecified; E78.00 Pure hypercholesterolemia, unspecified; Z79.02 Long term (current) use of antithrombotics/antiplatelets; Z79.4 Long term (current) use of insulin
CPT/HCPCS: 93005; 99285; 96374; 36415; 85025; 80053; 84484; 83880; 71046; 93010; J1940; J1815

== ENCOUNTER 2019-07-11 21:54 | Inpatient (IN) | payer BC ==
[2019-07-11] MEDS ORDERED: NITROGLYCERIN 2% OINTMENT 1 GM PACKET ONE (22:15)
[2019-07-11] MEDS: FUROSEMIDE INJ/PF 40 MG/4 ML SDV ONE ×2 (22:20→22:29)
[2019-07-11] MEDS ORDERED: NITROGLYCERIN 2% OINTMENT 1 GM PACKET TP ONE (22:22)
[2019-07-11] MEDS: FUROSEMIDE INJ/PF 20 MG/2 ML SDV IV ONE ×2 (22:23→22:25)
[2019-07-11 22:51] LABS: ABSOLUTE BASOPHILS # (AUTO) 0.1 10^3/uL (0.0-0.2); ABSOLUTE EOSINOPHILS # (AUTO) 0.2 10^3/uL (0.0-0.6); ABSOLUTE MONOCYTES (AUTO) 0.6 10^3/uL (0.1-1.4); ABSOLUTE NEUT (AUTO) 6.5 10^3/uL (1.7-8.2); ARTERIAL BLOOD BASE EXCESS -2.6 mmol/L; ARTERIAL BLOOD HCO3 24.2 mmol/L (20-24); ARTERIAL BLOOD PCO2 49.8 mmHg (35-45); ARTERIAL BLOOD PO2 41.8 mmHg (80-100); ARTERIAL BLOOD TOTAL CO2 25.7 mmol/L (23-27); BASOPHILS % (AUTO) 1.2 % (0-2); EOSINOPHILS % (AUTO) 2.4 % (0-6); HEMATOCRIT 37.2 % (37.9-51.0); LYMPHOCYTES % (AUTO) 12.3 % (13-45); MEAN CORPUSCULAR HGB CONC 32.4 g/dL (32.0-36.0); MEAN CORPUSCULAR VOLUME 77 fl (80-97); MONOCYTES % (AUTO) 6.8 % (3-13); PLATELET COUNT 440 10^3/uL (150-450); RED BLOOD COUNT 4.81 10^6/uL (4.35-5.55); RED CELL DISTRIBUTION WIDTH 16.5 % (11.5-14.0); SEGMENTED NEUTROPHILS % (AUTO) 77.3 % (42-78); TOTAL CELLS COUNTED % (AUTO) 100 %; WHITE BLOOD COUNT 8.5 10^3/uL (4.0-10.5)
[2019-07-11 22:52] LABS: ARTERIAL BLOOD FIO2 3L
[2019-07-11 23:09] LABS: ALBUMIN 3.7 g/dL (3.5-5.0); ALKALINE PHOSPHATASE 87 U/L (38-126); ANION GAP 11 (5-19); ASPARTATE AMINO TRANSFERASE 30 U/L (17-59); BILIRUBIN,DIRECT 0.1 mg/dL (0.0-0.4); BILIRUBIN,TOTAL 0.8 mg/dL (0.2-1.3); BLOOD UREA NITROGEN 38 mg/dL (7-20); CALCIUM 9.4 mg/dL (8.4-10.2); CARBON DIOXIDE 24 mmol/L (22-30); CHLORIDE 104 mmol/L (98-107); CREATINE KINASE 144 U/L (55-170); GLUCOSE 200 mg/dL (75-110); POTASSIUM 4.7 mmol/L (3.6-5.0); TOTAL PROTEIN 7.2 g/dL (6.3-8.2)
--- NOTE | 2019-07-11 23:12 | RADIOLOGY REPORT (SQ) ---
EXAM DESCRIPTION: XR CHEST 1 VIEW COMPLETED DATE/TME: 07/11/2019 22:23 CLINICAL HISTORY: 59 years, Male, Shortness of breath COMPARISON: 04/20/2018 chest NUMBER OF VIEWS: 1 TECHNIQUE: Portable chest LIMITATIONS: None. FINDINGS: Cardiomegaly. Mild interstitial edema. Suspected tiny bibasilar effusions. No pneumothorax. Superimposed perihilar airspace opacities. IMPRESSION: Cardiomegaly with interstitial and airspace opacities likely reflecting pulmonary edema. Suspected tiny bibasilar effusions copyright 2010 [employer]- All Rights Reserved
[2019-07-11 23:21] LABS: CREATINE KINASE MB 1.98 ng/mL (<4.55)
[2019-07-11 23:26] LABS: TROPONIN I 0.052 ng/mL
[2019-07-12 00:32] LABS: APPEARANCE,URINE CLEAR; BILIRUBIN,URINE NEGATIVE (NEGATIVE); COLOR,URINE YELLOW; GLUCOSE, URINE 50 mg/dL (NEGATIVE); KETONES,URINE NEGATIVE (NEGATIVE); LEUKOCYTE ESTERASE,URINE NEGATIVE (NEGATIVE); NITRITE,URINE NEGATIVE (NEGATIVE); PROTEIN,URINE 100 mg/dL (NEGATIVE); URINE SPECIFIC GRAVITY 1.009; UROBILINOGEN,URINE NEGATIVE mg/dL (<2.0)
--- NOTE | 2019-07-12 00:35 | ER Document Report ---
ED Respiratory Problem - General Chief Complaint: Shortness Of Breath Stated Complaint: DIFFICULTY BREATHING Time Seen by Provider: 07/11/19 22:21 Mode of Arrival: Medic Information source: Patient Notes: 59-year-old man presents to the emergency department with a complaint of shortness of breath and respiratory difficulty. He has been having problems all week but tonight his symptoms worsen. He denies chest pain, palpitations or dizziness. He has a history of diastolic CHF, atrial fibrillation, hypertension, diabetes mellitus, chronic kidney disease, anemia and sleep apnea. TRAVEL OUTSIDE OF THE [place] IN LAST 30 DAYS: No - Related Data Allergies/Adverse Reactions: No Known Allergies Allergy (Verified 04/20/18 11:04) Past Medical History - Social History Smoking Status: Unknown if Ever Smoked Family History: None, Reviewed & Not Pertinent Patient has suicidal ideation: No Patient has homicidal ideation: No - Past Medical History Cardiac Medical History: Reports: Hx Congestive Heart Failure, Hx Hypercholesterolemia, Hx Hypertension Pulmonary Medical History: Denies: Hx Tuberculosis Endocrine Medical History: Reports: Hx Diabetes Mellitus Type 1, Hx Diabetes Mellitus Type 2 Renal/ Medical History: Denies: Hx Peritoneal Dialysis Past Surgical History: Denies: Hx Appendectomy, Hx Bowel Surgery, Hx Cholecystectomy, Hx Coronary Artery Bypass Graft, Hx Gastric Bypass Surgery, Hx Herniorrhaphy, Hx Internal Defibrillator, Hx Pacemaker, Hx Tonsillectomy, Hx Valve Replacement, Hx Vascular Surgery - Immunizations Hx Diphtheria, Pertussis, Tetanus Vaccination: Yes Review of Systems - Review of Systems Notes: Constitutional: Negative for fever. HENT: Negative for sore throat. Eyes: Negative for visual changes. Cardiovascular: Negative for chest pain. Respiratory: + Shortness of breath. Gastrointestinal: Negative for abdominal pain, vomiting or diarrhea. Genitourinary: Negative for dysuria. Musculoskeletal: Negative for back pain. Skin: Negative for rash. Neurological: Negative for headaches, weakness or numbness. 10 point ROS negative except as marked above and in HPI. Physical Exam - Vital signs Vitals: Resp Pulse Ox 31 H 94 07/11/19 22:15 07/11/19 22:15 - Notes Notes: PHYSICAL EXAMINATION: Physical Exam: General: 59-year-old man in marked respiratory distress shortness of breath HEENT: NC/AT, pupils equal round and reactive to light, MM moist,nares clear, Neck: supple, no adenopathy, no masses. Lungs: Poor air movement and increased work to brief CVS: Tachycardia rate and rhythm no murmur gallop or rub Abdomen: Soft active nontender, no masses, no hepatosplenomegaly Ext: No edema clubbing or cyanosis. Neuro: Alert and responsive, moving all 4 extremities on command, cranial nerves intact. Skin: Intact no open lesions, no rash Course - Re-evaluation Re-evalutation: 07/12/19 01:40 I have contacted the brick machine operator and reviewed the findings on the creatinine and BUN. Given the acute on chronic renal failure and congestive heart failure, she will consult and consider dialysis if the patient is not having significant improvement with medical therapy. 07/12/19 03:59 Patient has been placed on BiPAP and is doing better, blood pressure continues to be elevated after Nitropaste, IV hydralazine, Lasix. He is given labetalol 20 mg IV. Presently the patient is resting quietly diagnosis of congestive heart failure worsening renal failure and poor compliance. I discussed the jessica ent with the hospitalist Dr. Lamb, he will admit the patient to the [facility]. - Vital Signs Vital signs: Temp Pulse Resp BP Pulse Ox 98.1 F 102 H 23 H 140/90 H 94 07/13/19 23:21 07/14/19 02:00 07/13/19 23:21 07/13/19 23:21 07/14/19 00:09 - Laboratory Result Diagrams: 07/13/19 05:02 07/13/19 05:02 Laboratory results interpreted by me: 07/11/19 07/11/19 07/11/19 22:16 22:23 22:23 Hgb 12.0 L Hct 37.2 L MCV 77 L MCH 25.0 L RDW 16.5 H Lymph % (Auto) 12.3 L Carbonic Acid ABG pH ABG pCO2 ABG pO2 ABG HCO3 ABG O2 Saturation BUN 38 H Creatinine 4.20 H Est GFR ( Amer) 18 L Est GFR (MDRD) Non-Af 15 L Glucose 200 H POC Glucose 189 H NT-Pro-B Natriuret Pep Urine Protein Urine Glucose (UA) 07/11/19 07/12/19 07/12/19 22:23 00:11 00:44 Hgb Hct MCV MCH RDW Lymph % (Auto) Carbonic Acid 1.50 H ABG pH 7.30 L ABG pCO2 49.8 H ABG pO2 41.8 L ABG HCO3 24.2 H ABG O2 Saturation 72.0 L BUN Creatinine Est GFR ( Amer) Est GFR (MDRD) Non-Af Glucose POC Glucose NT-Pro-B Natriuret Pep 2510 H Urine Protein 100 H Urine Glucose (UA) 50 H - Diagnostic Test Radiology reviewed: Image reviewed, Reports reviewed - Chest x-ray: Cardiomegaly with interstitial edema, compatible with pulmonary edema - EKG Interpretation by [place] Rhythm: A.Fib - Ventricular rate 53-1 05 abnormal T wave question of ischemia. Critical Care Note - Critical Care Note Total time excluding time spent on procedures (mins): 90 - Critical care time spent obtaining history from patient or surrogate, discussions with consultants, development of treatment plan with patient or surrogate, evaluation of patient's response to treatment, examination of patient, ordering and performing treatments and interventions, ordering and review of laboratory studies, re- evaluation of patient's condition, ordering and review of radiographic studies and review of old charts Discharge - Discharge Clinical Impression: Hypertensive urgency, Chronic atrial fibrillation Congestive heart failure (CHF) Qualifiers: Heart failure type: diastolic Heart failure chronicity: acute on chronic Qualified Code(s): I50.9 - Heart failure, unspecified Diabetes mellitus Qualifiers: Diabetes mellitus type: type 2 Diabetes mellitus terminal gauger insulin use: without terminal gauger use Diabetes mellitus complication status: with kidney complications Diabetes mellitus complication detail: with chronic kidney disease Chronic kidney disease stage: stage 4 (severe) Qualified Code(s): E11.22 - Type 2 diabetes mellitus with diabetic chronic kidney disease Condition: Good Disposition: ADMITTED INPATIENT Admitting Provider: Adonis (Hospitalist) Unit Admitted: [facility]
[2019-07-12] MEDS ORDERED: HYDRALAZINE HCL INJ/PF 20 MG/1 ML SDV IV ONE (00:42)
[2019-07-12] MEDS ORDERED: LABETALOL HCL INJ 20 MG/4 ML DISP.SYRIN IV ONE (03:49)
[2019-07-12] MEDS ORDERED: HYDRALAZINE HCL INJ/PF 20 MG/1 ML SDV IV PRN (03:59)
[2019-07-12] MEDS ORDERED: IPRATROPIUM/ALBUTEROL 0.5-2.5 MG/3 ML AMPUL NEB PRN (04:00)
[2019-07-12] MEDS ORDERED: MAG HYDROX/AL HYDROX/SIMETH SUSP 30 ML UDCUP PO PRN (04:00)
[2019-07-12] MEDS ORDERED: ACETAMINOPHEN 325 MG TABLET PO PRN (04:00)
[2019-07-12] MEDS ORDERED: HYDRALAZINE HCL 50 MG TABLET PO ONE (04:30)
[2019-07-12 04:50] LABS: URINE AMPHETAMINES SCREEN NEGATIVE; URINE BARBITURATES SCREEN NEGATIVE; URINE BENZODIAZEPINES SCREEN NEGATIVE; URINE COCAINE SCREEN NEGATIVE; URINE MARIJUANA (THC) SCREEN NEGATIVE; URINE METHADONE SCREEN NEGATIVE; URINE PHENCYCLIDINE SCREEN NEGATIVE
[2019-07-12] MEDS ORDERED: AMLODIPINE BESYLATE 10 MG TABLET PO ONE (05:00)
[2019-07-12] MEDS ORDERED: LACTULOSE SYRUP 20 GM/30 ML UDCUP PO ONE (05:28)
[2019-07-12] MEDS ORDERED: INFLUENZA QUAD (6MOS+) 2019-20 VAC 0.5 ML SYR IM ONE (05:34)
--- NOTE | 2019-07-12 06:49 | PDOC H&P ---
History of Present Illness Admission Date/PCP: 07/12/19 04:10 ERMA DESAI Patient complains of: Shortness of breath History of Present Illness: CATHY HALL is a 59 year old male with a history of hypertension, insulin- dependent diabetes, CKD 4, paroxysmal atrial fibrillation, hypertension, obstructive sleep apnea with chronic noncompliance. He presents with 7 days of shortness of breath prompting evaluation in the emergency department 48 hours ago he was placed on what is described as a water pill. Without significant improvement he returns and is found to have hypertensive urgency, pulmonary edema, acute on chronic renal failure. He is started on BiPAP, hydralazine, labetalol, topical nitroglycerin and referred to the hospitalist for admission. He denies chest pain, nausea vomiting, palpitations or productive cough. Patient is unclear of his medication regiment and again does not use BiPAP. He is unaware of any dietary restrictions. Past Medical History Cardiac Medical History: Reports: Congestive Heart Failure, Hyperlipidema, Hypertension Pulmonary Medical History: Denies: Tuberculosis Endocrine Medical History: Reports: Diabetes Mellitus Type 1, Diabetes Mellitus Type 2 Psychiatric Medical History: Denies: Depression Past Surgical History Past Surgical History: Denies: Appendectomy, Cholecystectomy, Coronary Artery Bypass Graft, Gastric Bypass Surgery, Herniorrhaphy, Internal Defibrillator, Pacemaker, Tonsillectomy, Valve Replacement, Vascular Surgery Social History Information Source: Patient, [facility] Records Lives with: Spouse/Significant other Smoking Status: Never Smoker Electronic Cigarette use?: No Frequency of Alcohol Use: Social Hx Recreational Drug Use: No Drugs: None Hx Prescription Drug Abuse: No - Advance Directive Resuscitation Status: Full Code Family History Family History: Hypertension Parental Family History Reviewed: Yes Children Family History Reviewed: Yes Sibling(s) Family History Reviewed.: Yes Medication/Allergy Home Medications: Amlodipine Besylate [Norvasc 10 mg Tablet] 10 mg PO DAILY #30 tablet 04/23/18 Apixaban [Eliquis 2.5 mg Tablet] 2.5 mg PO BID #60 tablet 04/23/18 Atorvastatin Calcium [Lipitor 20 mg Tablet] 20 mg PO QHS #30 tablet 04/23/18 Carvedilol [Coreg 25 mg Tablet] 25 mg PO Q12 #60 tablet 04/23/18 Clonidine HCl [Catapres 0.2 mg Tablet] 0.2 mg PO Q8 #90 tablet 04/23/18 Ferrous Sulfate [Feosol 325 mg Tablet] 325 mg PO BIDPCBS #60 tablet 04/23/18 Furosemide [Lasix 40 mg Tablet] 40 mg PO DAILY #30 tablet 04/23/18 Hydralazine HCl 100 mg PO Q8 #90 tablet 04/23/18 Insulin Glargine,Hum.rec.anlog [Lantus Insulin 100 Unit/mL Insulin Pen] 40 unit SUBCUT QHS #6 insuln.pen 04/23/18 Isosorbide Mononitrate [Imdur 60 mg Tablet.er] 60 mg PO DAILY #30 tab.er.24h 04/23/18 Losartan/Hydrochlorothiazide [Hyzaar 100-25 Tablet] 1 tab PO DAILY #30 tablet 04/23/18 Metoprolol Tartrate [Lopressor 25 mg Tablet] 50 mg PO Q12 #60 tablet 04/23/18 Potassium Chloride [K-Tab ER] 20 meq PO DAILY #30 tablet.er 04/23/18 Spironolactone [Aldactone] 50 mg PO DAILY #30 tablet 04/23/18 Furosemide [Lasix 20 mg Tablet] 20 mg PO DAILY 5 Days #5 tablet 07/03/19 Allergies/Adverse Reactions: No Known Allergies Allergy (Verified 04/20/18 11:04) Review of Systems Constitutional: PRESENT: as per HPI, fatigue, weakness, weight gain. ABSENT: anorexia Eyes: ABSENT: visual disturbances Ears: ABSENT: hearing changes Cardiovascular: PRESENT: as per HPI, dyspnea on exertion, edema, orthropnea. ABSENT: chest pain, palpitations Respiratory: PRESENT: as per HPI, cough, dyspnea. ABSENT: hemoptysis, sputum Gastrointestinal: ABSENT: abdominal pain, constipation, diarrhea, hematemesis, hematochezia, nausea, vomiting Genitourinary: ABSENT: dysuria, hematuria Musculoskeletal: ABSENT: joint swelling Integumentary: ABSENT: rash, wounds Neurological: ABSENT: abnormal gait, abnormal speech, confusion, dizziness, focal weakness, syncope Psychiatric: ABSENT: anxiety, depression, homidical ideation, suicidal ideation Endocrine: ABSENT: cold intolerance, heat intolerance, polydipsia, polyuria Hematologic/Lymphatic: ABSENT: easy bleeding, easy bruising Physical Exam Vital Signs: Temp Pulse Resp BP Pulse Ox 97.4 F 92 21 H 194/90 H 100 07/12/19 04:56 07/12/19 04:57 07/12/19 04:56 07/12/19 04:56 07/12/19 04:56 Intake & Output 07/10/19 07/11/19 07/12/19 11:59 11:59 11:59 Weight 126.6 kg General appearance: PRESENT: cooperative, morbidly obese, well-developed, well- nourished Head exam: PRESENT: atraumatic, normocephalic Eye exam: PRESENT: conjunctiva pink, EOMI, PERRLA. ABSENT: scleral icterus Ear exam: PRESENT: normal external ear exam Mouth exam: PRESENT: moist, tongue midline Neck exam: PRESENT: full ROM, JVD. ABSENT: carotid bruit Respiratory exam: PRESENT: accessory muscle use, crackles, decreased breath sounds, retraction, tachypnea. ABSENT: rhonchi, stridor, wheezes Cardiovascular exam: PRESENT: gallop, +S1, +S2, tachycardia Pulses: PRESENT: normal dorsalis pedis pul Vascular exam: PRESENT: normal capillary refill GI/Abdominal exam: PRESENT: normal bowel sounds, soft. ABSENT: distended, guarding, mass, organolmegaly, rebound, tenderness Rectal exam: PRESENT: deferred Extremities exam: PRESENT: pedal edema, +1 edema. ABSENT: tenderness Neurological exam: PRESENT: alert, awake, oriented to person, oriented to place, oriented to time, oriented to situation, CN II-XII grossly intact. ABSENT: motor sensory deficit Psychiatric exam: PRESENT: appropriate affect, normal mood. ABSENT: homicidal ideation, suicidal ideation Skin exam: PRESENT: dry, intact, warm. ABSENT: cyanosis, rash Results Laboratory Results: 07/11/19 22:23 07/11/19 07/11/19 07/11/19 22:23 22:23 22:23 WBC 8.5 RBC 4.81 Hgb 12.0 L Hct 37.2 L MCV 77 L MCH 25.0 L MCHC 32.4 RDW 16.5 H Plt Count 440 Seg Neutrophils % 77.3 Carbonic Acid 1.50 H HCO3/H2CO3 Ratio 16:1 ABG pH 7.30 L ABG pCO2 49.8 H ABG pO2 41.8 L ABG HCO3 24.2 H ABG O2 Saturation 72.0 L ABG Base Excess -2.6 FiO2 3L Sodium 139.1 Potassium 4.7 Chloride 104 Carbon Dioxide 24 Anion Gap 11 BUN 38 H Creatinine 4.20 H Est GFR ( Amer) 18 L Glucose 200 H Calcium 9.4 Total Bilirubin 0.8 AST 30 Alkaline Phosphatase 87 Total Protein 7.2 Albumin 3.7 Urine Color Urine Appearance Urine pH Ur Specific [place] Urine Protein Urine Glucose (UA) Urine Ketones Urine Blood Urine Nitrite Ur Leukocyte Esterase Urine WBC (Auto) Urine RBC (Auto) 07/12/19 00:11 WBC RBC Hgb Hct MCV MCH MCHC RDW Plt Count Seg Neutrophils % Carbonic Acid HCO3/H2CO3 Ratio ABG pH ABG pCO2 ABG pO2 ABG HCO3 ABG O2 Saturation ABG Base Excess FiO2 Sodium Potassium Chloride Carbon Dioxide Anion Gap BUN Creatinine Est GFR ( Amer) Glucose Calcium Total Bilirubin AST Alkaline Phosphatase Total Protein Albumin Urine Color YELLOW Urine Appearance CLEAR Urine pH 6.0 Ur Specific [place] 1.009 Urine Protein 100 H Urine Glucose (UA) 50 H Urine Ketones NEGATIVE Urine Blood NEGATIVE Urine Nitrite NEGATIVE Ur Leukocyte Esterase NEGATIVE Urine WBC (Auto) 5 Urine RBC (Auto) 1 07/11/19 07/11/19 07/12/19 22:23 22:23 00:44 Creatine Kinase 144 CK-MB (CK-2) 1.98 Troponin I 0.052 0.056 NT-Pro-B Natriuret Pep 07/12/19 00:44 Creatine Kinase CK-MB (CK-2) Troponin I NT-Pro-B Natriuret Pep 2510 H Impressions: Chest X-Ray 07/11/19 22:23 IMPRESSION: Cardiomegaly with interstitial and airspace opacities likely reflecting pulmonary edema. Suspected tiny bibasilar effusions copyright 2011 [employer]- All Rights Reserved Assessment and Plan - Diagnosis (1) Chronic atrial fibrillation Is this a current diagnosis for this admission?: Yes Plan: Rate controlled continue beta-klaus (2) Congestive heart failure (CHF) Qualifiers: Heart failure type: unspecified Heart failure chronicity: acute on chronic Qualified Code(s): I50.9 - Heart failure, unspecified Is this a current diagnosis for this admission?: Yes Plan: Likely combined diastolic and systolic heart failure, complicated by obstructive sleep apnea, BiPAP, optimize volume, pressure and rate. CHF education (3) Diabetes mellitus Qualifiers: Diabetes mellitus type: type 2 Diabetes mellitus residential insulin use: without terminal carman use Diabetes mellitus complication status: with kidney complications Diabetes mellitus complication detail: with chronic kidney disease Chronic kidney disease stage: stage 4 (severe) Qualified Code(s): E11.22 - Type 2 diabetes mellitus with diabetic chronic kidney disease; N18.4 - Chronic kidney disease, stage 4 (severe) Is this a current diagnosis for this admission?: Yes Plan: Outpatient regiment with Humalog sliding scale. (4) Hypertensive urgency Is this a current diagnosis for this admission?: Yes Plan: Improved, continue beta-klaus, hydralazine, Norvasc and nitrates as needed (5) Chronic kidney disease (CKD) Qualifiers: Chronic kidney disease stage: unspecified stage Qualified Code(s): N18.9 - Chronic kidney disease, unspecified Is this a current diagnosis for this admission?: Yes Plan: Avoid nephrotoxic meds and doses, lost to outpatient nephrology follow-up. Consult ordered. - Time Time Spent with patient: 25-34 minutes - Inpatient Certification Medical Necessity: Need Close Monitoring Due to Risk of Patient Decompensation
[2019-07-12 06:54] LABS: ANION GAP 12 (5-19); BLOOD UREA NITROGEN 39 mg/dL (7-20); CALCIUM 9.1 mg/dL (8.4-10.2); CARBON DIOXIDE 23 mmol/L (22-30); CHLORIDE 104 mmol/L (98-107); GLUCOSE 179 mg/dL (75-110); POTASSIUM 4.7 mmol/L (3.6-5.0)
--- NOTE | 2019-07-12 07:21 | EKG REPORT ---
SEVERITY:- ABNORMAL ECG - ATRIAL FIBRILLATION, V-RATE 53-105 ABNORMAL T, CONSIDER ISCHEMIA, LATERAL LEADS : Confirmed by: Darrian Rowan MD 12-Jul-2019 07:20:42
[2019-07-12] MEDS ORDERED: HEPARIN SOD (PORCINE) 5,000 UNIT/ML 1 ML VIAL SUBCUT SCH (09:30)
[2019-07-12] MEDS ORDERED: CLONIDINE 0.2 MG/24 HR PATCH.TDWK TD SCH (10:00)
[2019-07-12] MEDS ORDERED: NIFEDIPINE 30 MG TAB.ER.24 PO SCH ×2 (10:00)
[2019-07-12] MEDS: HYDRALAZINE HCL 50 MG TABLET PO SCH ×2 (10:11→17:21)
[2019-07-12] MEDS: CARVEDILOL 12.5 MG TABLET PO SCH ×2 (10:11→21:07)
[2019-07-12] MEDS: ISOSORBIDE MONONITRATE 60 MG TAB.ER.24H PO SCH (10:11)
[2019-07-12] MEDS: APIXABAN 2.5 MG TABLET PO SCH ×2 (10:11→17:20)
[2019-07-12] MEDS: FUROSEMIDE INJ/PF 20 MG/2 ML SDV IV SCH ×2 (10:11→21:08)
[2019-07-12] MEDS: DOCUSATE SODIUM 100 MG CAPSULE PO SCH ×2 (10:12→17:21)
[2019-07-12] MEDS ORDERED: HYDRALAZINE HCL 50 MG TABLET PO SCH (12:00)
--- NOTE | 2019-07-12 12:27 | PDOC CONSULTATION ---
Consultation Consult Date: 07/12/19 Provider Consulted: SERGIO CASTRO Consult reason:: I was asked to see the patient due to worsening kidney function in a background of chronic kidney disease. History of Present Illness Admission Date/PCP: 07/12/19 04:10 ERMA DESAI History of Present Illness: CATHY HALL is a 59 year old -[place] gentleman with history of chronic kidney disease stage III, hypertension, congestive heart failure, atrial fibrillation on anticoagulation, hyperlipidemia, diabetes mellitus type 2 who was admitted last night because of shortness of breath. Patient has a 7-day history of shortness of breath and progressive lower extremity edema. He was also severely hypertensive with blood pressure of 191/97 on presentation. Initial chest x-ray in the emergency room showed pulmonary edema and tiny bibasilar effusions. He was initially placed on BiPAP but currently off the BiPAP. He was also started on IV diuresis with Lasix. Patient states that his leg swelling has progressively gotten worse for the last week. He was in the emergency room on July 03 and was sent home with Lasix 40 mg daily for 5 days. He then followed up with Dr. Desai last Thursday and his Lasix was refilled. He said at Dr. Desai office he actually has gained 24 pounds. His blood pressure at Dr. Desai is clinic last Thursday was 137/87 and a claimed that his blood pressure has been better controlled with his current home blood pressure regimen. His girlfriend at bedside Batsheva confirmed this. Patient states that his breathing is better this morning. He denies any chest pains nor any other complaints of nausea, vomiting, diarrhea no constipation. His appetite has decreased for the past week. Patient also presented with worsening kidney function with a BUN of 38, creatinine of 4.2. Today he has a BUN of 39, creatinine of 2.86 with EGFR of 20. In 2018, his baseline showed a BUN of 33-50, creatinine of 2-2.7 and EGFR of 30-41. I have seen the patient previously and I have seen him last in 2012 and subsequently got lost to follow-up for what ever reason. During that time he has also had chronic kidney disease stage III with difficult to control hypertension. So far he is nonoliguric and has made about 500 mL of urine since he got to the floor. Is currently comfortable sitting at the edge of the bed. Past Medical History Cardiac Medical History: Reports: Atrial Fibrillation, CHF-Diastolic, Hyperlipidemia, Hypertension-primary Pulmonary Medical History: Reports: Sleep Apnea Endocrine Medical History: Reports: Diabetes Mellitus Type 2 Renal/ Medical History: Reports: Chronic Kidney Disease Stage III, Hypokalemia Hematology Medical History: Reports Anemia of Chronic Kidney Disease, Reports Iron Deficiency Anemia Past Surgical History Past Surgical History: Reports: None Social History Information Source: Patient Lives with: Spouse/Significant other Smoking Status: Never Smoker Electronic Cigarette use?: No Frequency of Alcohol Use: Social Hx Recreational Drug Use: No Drugs: None Hx Prescription Drug Abuse: No - Advance Directive Resuscitation Status: Full Code Family History Family History: DM - Mother and sister, End Stage Renal Disease - His mother was on dialysis, Hypertension - Mother and sister Parental Family History Reviewed: Yes Children Family History Reviewed: NA Sibling(s) Family History Reviewed.: Yes Medication/Allergy Home Medications: Amlodipine Besylate [Norvasc 10 mg Tablet] 10 mg PO DAILY #30 tablet 04/23/18 Apixaban [Eliquis 2.5 mg Tablet] 2.5 mg PO BID #60 tablet 04/23/18 Atorvastatin Calcium [Lipitor 20 mg Tablet] 20 mg PO QHS #30 tablet 04/23/18 Carvedilol [Coreg 25 mg Tablet] 25 mg PO Q12 #60 tablet 04/23/18 Clonidine HCl [Catapres 0.2 mg Tablet] 0.2 mg PO Q8 #90 tablet 04/23/18 Ferrous Sulfate [Feosol 325 mg Tablet] 325 mg PO BIDPCBS #60 tablet 04/23/18 Furosemide [Lasix 40 mg Tablet] 40 mg PO DAILY #30 tablet 04/23/18 Isosorbide Mononitrate [Imdur 60 mg Tablet.er] 60 mg PO DAILY #30 tab.er.24h Metoprolol Tartrate [Lopressor 25 mg Tablet] 50 mg PO Q12 #60 tablet 04/23/18 Spironolactone [Aldactone] 50 mg PO DAILY #30 tablet 04/23/18 Hydralazine HCl 100 mg PO Q12 07/12/19 Insulin Glargine,Hum.rec.anlog [Lantus Insulin 100 Unit/mL Insulin Pen] 50 unit SUBCUT QHS 07/12/19 Allergies/Adverse Reactions: No Known Allergies Allergy (Verified 04/20/18 11:04) Review of Systems All systems: reviewed and no additional remarkable complaints except as stated Review of Systems: Constitutional: ABSENT: chills, fatigue, fever(s), headache(s), weight loss; weight gain of 24 pounds Eyes: ABSENT: visual disturbances Ears: ABSENT: hearing changes Cardiovascular: ABSENT: chest pain, orthropnea, palpitations; worsening shortness of breath and lower extremity edema Respiratory: ABSENT: cough, dyspnea, hemoptysis Gastrointestinal: ABSENT: abdominal pain, constipation, diarrhea, hematemesis, hematochezia, nausea, vomiting Genitourinary: ABSENT: dysuria, hematuria Musculoskeletal: ABSENT: joint swelling Integumentary: ABSENT: rash, wounds Neurological: ABSENT: abnormal gait, abnormal speech, confusion, dizziness, focal weakness, numbness, syncope Psychiatric: ABSENT: anxiety, depression Endocrine: ABSENT: cold intolerance, heat intolerance, polydipsia, polyuria Hematologic/Lymphatic: ABSENT: easy bleeding, easy bruising, lymphadenopathy Physical Exam Vital Signs: Temp Pulse Resp BP Pulse Ox 97.6 F 80 20 187/83 H 98 07/12/19 08:11 07/12/19 08:11 07/12/19 08:11 07/12/19 08:11 07/12/19 08:11 Intake & Output 07/11/19 07/12/19 07/13/19 06:59 06:59 06:59 Output Total 300 Balance -300 Weight 126.6 kg Exam: General appearance: No acute distress, cooperative, well-developed, well- nourished Head exam: PRESENT: atraumatic, normocephalic Eye exam: PRESENT: Conjunctiva Randall, EOMI, PERRLA. ABSENT: conjunctival injection, scleral icterus Mouth exam: PRESENT: moist, neck supple, tongue midline Neck exam: PRESENT: full ROM. ABSENT: carotid bruit, JVD, lymphadenopathy, thyromegaly Respiratory exam: PRESENT: Diminished to auscultation bilaterally. ABSENT: rales, rhonchi, stridor, wheezes Cardiovascular exam: PRESENT: Irregularly irregular +S1, +S2. ABSENT: systolic murmur Pulses: PRESENT: normal radial pulses, normal dorsalis pedis pulses GI/Abdominal exam: PRESENT: normal bowel sounds, soft. ABSENT: guarding, mass, tenderness Rectal exam: Deferred Extremities exam: PRESENT: full ROM. Grade 2 bilateral lower extremity pitting edema ABSENT: calf tenderness Musculoskeletal: PRESENT: full ROM. ABSENT: deformity Neurological exam: PRESENT: alert, Awake, Oriented to person, Oriented to place, Oriented to time, reflexes normal, CN II-XII grossly intact. ABSENT: motor sensory deficit Psychiatric exam: PRESENT: appropriate affect, normal mood. ABSENT: homicidal ideation, suicidal ideation Skin exam: PRESENT: intact, dry, warm. ABSENT: rash Results Laboratory Results: 07/11/19 22:23 07/12/19 06:10 07/11/19 07/11/19 07/11/19 22:23 22:23 22:23 WBC 8.5 RBC 4.81 Hgb 12.0 L Hct 37.2 L MCV 77 L MCH 25.0 L MCHC 32.4 RDW 16.5 H Plt Count 440 Seg Neutrophils % 77.3 Carbonic Acid 1.50 H HCO3/H2CO3 Ratio 16:1 ABG pH 7.30 L ABG pCO2 49.8 H ABG pO2 41.8 L ABG HCO3 24.2 H ABG O2 Saturation 72.0 L ABG Base Excess -2.6 FiO2 3L Sodium 139.1 Potassium 4.7 Chloride 104 Carbon Dioxide 24 Anion Gap 11 BUN 38 H Creatinine 4.20 H Est GFR ( Amer) 18 L Glucose 200 H Calcium 9.4 Total Bilirubin 0.8 AST 30 Alkaline Phosphatase 87 Total Protein 7.2 Albumin 3.7 TSH Urine Color Urine Appearance Urine pH Ur Specific [place] Urine Protein Urine Glucose (UA) Urine Ketones Urine Blood Urine Nitrite Ur Leukocyte Esterase Urine WBC (Auto) Urine RBC (Auto) 07/12/19 07/12/19 07/12/19 00:11 06:10 06:10 WBC RBC Hgb Hct MCV MCH MCHC RDW Plt Count Seg Neutrophils % Carbonic Acid HCO3/H2CO3 Ratio ABG pH ABG pCO2 ABG pO2 ABG HCO3 ABG O2 Saturation ABG Base Excess FiO2 Sodium 138.8 Potassium 4.7 Chloride 104 Carbon Dioxide 23 Anion Gap 12 BUN 39 H Creatinine 3.86 H Est GFR ( Amer) 20 L Glucose 179 H Calcium 9.1 Total Bilirubin AST Alkaline Phosphatase Total Protein Albumin TSH 1.19 Urine Color YELLOW Urine Appearance CLEAR Urine pH 6.0 Ur Specific [place] 1.009 Urine Protein 100 H Urine Glucose (UA) 50 H Urine Ketones NEGATIVE Urine Blood NEGATIVE Urine Nitrite NEGATIVE Ur Leukocyte Esterase NEGATIVE Urine WBC (Auto) 5 Urine RBC (Auto) 1 07/11/19 07/11/19 07/12/19 22:23 22:23 00:44 Creatine Kinase 144 CK-MB (CK-2) 1.98 Troponin I 0.052 0.056 NT-Pro-B Natriuret Pep 07/12/19 00:44 Creatine Kinase CK-MB (CK-2) Troponin I NT-Pro-B Natriuret Pep 2510 H Impressions: Chest X-Ray 07/11/19 22:23 IMPRESSION: Cardiomegaly with interstitial and airspace opacities likely reflecting pulmonary edema. Suspected tiny bibasilar effusions copyright 2010 [email or web address]- All Rights Reserved Assessment & Plan - Diagnosis (1) Acute kidney injury superimposed on chronic kidney disease Is this a current diagnosis for this admission?: Yes Plan: Patient is nonoliguric. No acute worsening of his kidney function is most likely secondary to prerenal factors including acute congestive heart failure. Patient is currently responding well to the IV Lasix. His kidney function is actually slowly improving. Continue current management. Follow strict intake and output. Agree with fluid restriction and low-salt diet. Monitor the patient's kidney function daily including electrolytes. Avoid nephrotoxic medications. Patient does not need any acute renal replacement therapy at this time. Advised the patient regarding importance of compliance with medications and treatment. (2) Congestive heart failure (CHF) Qualifiers: Heart failure type: unspecified Heart failure chronicity: acute on chronic Qualified Code(s): I50.9 - Heart failure, unspecified Is this a current diagnosis for this admission?: Yes Plan: Likely due to diastolic dysfunction. Last echocardiogram was done on April 22, 2018 which showed moderate concentric LVH with left ventricular ejection fraction greater than 65% at that time. Continue IV diuresis. Maximize cardiac management. Hold off on SELVIN/ARB due to GLADIS. (3) Hypertensive urgency Is this a current diagnosis for this admission?: Yes Plan: Patient in his girlfriend report that his blood pressure at home is previously controlled. The girlfriend brought the list of medications he is currently taking at home which include diltiazem 240 mg daily, amlodipine 10 mg daily, carvedilol 25 mg every 12 hours, clonidine 0.2 mg every 8 hours furosemide 40 mg daily, hydralazine 100 mg every 8 hours, metoprolol 50 mg every 12 hours and spironolactone 50 mg daily. Current medication slightly deviates from above medication list. We will see how the current medication regimen controls his blood pressure. Patient was just started on nifedipine to replace the amlodipine. (4) Chronic atrial fibrillation Is this a current diagnosis for this admission?: Yes Plan: Currently with controlled ventricular response. On Eliquis. (5) Chronic kidney disease, stage III (moderate) Is this a current diagnosis for this admission?: Yes Plan: Patient has mild proteinuria. His chronic kidney disease is secondary to hypertensive nephrosclerosis more than diabetes. Will check urine protein to c reatinine ratio and protein electrophoresis. I will also check him for other complications of kidney disease. We will recheck his kidney ultrasound. (6) Anemia in chronic kidney disease (CKD) Is this a current diagnosis for this admission?: Yes Plan: We will check iron panel and anemia work-up. - Notes Notes: Thank you very much for this consultation. Discussed assessment and recomme ndations with the patient and his girlfriend, Batsheva at bedside. Also briefly discussed this with Dr. Epps the hospitalist. I will follow the patient. - Time Time Spent: Greater than 70 Minutes
[2019-07-12 12:46] LABS: ABSOLUTE RETICS # 0.101 10^6/uL (0.028-0.122); RETICULOCYTE COUNT (AUTO) 2.19 % (0.66-2.85)
[2019-07-12 12:49] LABS: IRON(TIBC) 30.7 ug/dL (49-181); PHOSPHORUS 4.9 mg/dL (2.5-4.5)
[2019-07-12 14:12] LABS: FOLATE 6.52 ng/mL (>2.76)
--- NOTE | 2019-07-12 15:15 | RADIOLOGY REPORT (SQ) ---
EXAM DESCRIPTION: [employer] COMPLETED DATE/TIME: 07/12/2019 2:20 pm REASON FOR STUDY: GLADIS/CKD COMPARISON: None. TECHNIQUE: Dynamic and static grayscale images acquired of the kidneys and recorded on PACS. Additio nal selected color Doppler and spectral images recorded. LIMITATIONS: Limited study due to difficulty in positioning the patient. FINDINGS: RIGHT KIDNEY: 8.7 cm. Normal echogenicity. No solid or suspicious masses. No hydronephrosi s. No calcifications. LEFT KIDNEY: 8.2 cm. Normal echogenicity. No solid or suspicious masses. No hydronephrosis. No calci fications. OTHER FINDINGS: Bilateral pleural effusions. IMPRESSION: LIMITED STUDY. SUBOPTIMAL VISUALIZATION OF THE KIDNEYS. NO HYDRONEPHROSIS. BILATERAL PLEURAL EFFUSIONS. TECHNICAL DOCUMENTATION: JOB ID: [id number] [employer]- All Rights Reserved Reading location - IP/workstation name: [email or web address]
--- NOTE | 2019-07-12 17:58 | XCELERA REPORT ---
[address] [address] Transthoracic Echocardiogram Report Name: CATHY HALL Age: 59 yrs Gender: Male : 1960 Patient Status: Inpatient Patient Location: [facility]^A Study Date: 07/12/2019 02:47 PM Height: 72 in Weight: 279 lb BSA: 2.5 m2 Reason For Study: acute CHF, resp failure Ordering Physician: MARIO ALBERTO DUMONT Performed By: Hayley Mack Interpretation Summary Study performed by NF and JS. Study was technically difficult due to pt. sitting straight up during test. Poor A2 chamber visualization of the anteriior wall. Small post pericardial effusion. Mild nonstenotic calcific AV disease with no AR, very mild with peak gradient 15mm Hg, no AR, no LVenlargement. Mild MAC, no MS, no MVP, Trace MR with mod LA enlargement. Mod concentric LVH with mild LV diastolic dysfunction stage I, with incomplete LV segmental analysis, at least dyskinetic apical Inferoseptal and apical 2/3 apical inferior wall. with Anteriorl wall not visualized.No LV enlargement.. LVEF is Normal, unable to do biplane LVEF analysis., R Heart is poorly evaluated, TR jet is poorly visualized, RVSP cannot be assessed, but IVC is dilated and sniff <50%., likely RH systolic dysfunction,and pulm hypertension. MMode/2D Measurements & Calculations RVDd: 2.6 cm LVIDd: 5.1 cm FS: 40.5 % Ao root diam: IVSd: 1.5 cm LVIDs: 3.0 cm EDV(Teich): 3.2 cm LVPWd: 1.6 cm 121.5 ml Ao root area: ESV(Teich): 35.3 ml 7.9 cm2 LA dimension: EF(Teich): 71.0 % 4.3 cm LVLd ap4: 8.1 cm SV(MOD-sp4): EDV(MOD-sp4): 93.0 ml 127.0 ml LVLs ap4: 8.0 cm ESV(MOD-sp4): 34.0 ml EF(MOD-sp4): 73.2 % Doppler Measurements & Calculations MV E max kevin: MV P1/2t max kevin: Ao V2 max: LV V1 max P.0 cm/sec 135.7 cm/sec 195.5 cm/sec 9.2 mmHg MV P1/2t: 51.8 msec Ao max PG: LV V1 max: MVA(P1/2t): 4.2 cm2 15.3 mmHg 151.8 cm/sec MV dec slope: 767.4 cm/sec2 MV dec time: 0.19 sec PA V2 max: PI end-d kevin: MV P1/2t-pr_phl: 89.0 cm/sec 83.6 cm/sec 51.8 msec PA max P.2 mmHg I WMSI = 1.77 % Normal = 69 Segments Size X - Cannot 2 - 4 - 1-2 small Interpret 1 - Normal Hypokinetic 3 - AkineticDyskinetic 3-5 moderate 5 - 6-14 large Aneurysmal 15-16 diffuse : MARIO ALBERTO DUMONT Andre
--- NOTE | 2019-07-12 18:05 | Progress Note ---
Provider Note Provider Note: Patient is a 59-year-old -[place] male admitted late this morning by Dr. Lamb. Please see his H&P for full details. Patient's blood pressure notably uncontrolled this morning. I made some adjustments in his medications. Nephrology was consulted. Patient seen and examined Blood pressure medications adjusted, replaced amlodipine with nifedipine which should be more effective Continue diuresis with Lasix nephrology following
[2019-07-12 19:30] LABS: UR PRO/CREAT RATIO RESULT 1.2 mg/mg (0.0-0.2); URINE CREATININE 99.4 mg/dL (22-328)
[2019-07-12] MEDS: INSULIN LISPRO 100 UNIT/ML 3 ML VIAL SUBCUT SCH (21:08)
[2019-07-12] MEDS ORDERED: LORAZEPAM INJ 2 MG/1 ML VIAL IV PRN (22:14)
[2019-07-13] MEDS: HYDRALAZINE HCL 50 MG TABLET PO SCH ×3 (01:54→17:57)
[2019-07-13 05:36] LABS: ABSOLUTE BASOPHILS # (AUTO) 0.1 10^3/uL (0.0-0.2); ABSOLUTE LYMPHOCYTES (AUTO) 0.7 10^3/uL (0.5-4.7); ABSOLUTE MONOCYTES (AUTO) 0.7 10^3/uL (0.1-1.4); ABSOLUTE NEUT (AUTO) 7.5 10^3/uL (1.7-8.2); BASOPHILS % (AUTO) 1.2 % (0-2); EOSINOPHILS % (AUTO) 0.5 % (0-6); HEMATOCRIT 36.2 % (37.9-51.0); LYMPHOCYTES % (AUTO) 7.9 % (13-45); MEAN CORPUSCULAR HEMOGLOBIN 25.1 pg (27.0-33.4); MEAN CORPUSCULAR HGB CONC 33.1 g/dL (32.0-36.0); MEAN CORPUSCULAR VOLUME 76 fl (80-97); MONOCYTES % (AUTO) 8.2 % (3-13); PLATELET COUNT 383 10^3/uL (150-450); RED BLOOD COUNT 4.77 10^6/uL (4.35-5.55); RED CELL DISTRIBUTION WIDTH 16.8 % (11.5-14.0); SEGMENTED NEUTROPHILS % (AUTO) 82.2 % (42-78); TOTAL CELLS COUNTED % (AUTO) 100 %; WHITE BLOOD COUNT 9.1 10^3/uL (4.0-10.5)
[2019-07-13 06:00] LABS: ANION GAP 11 (5-19); BLOOD UREA NITROGEN 36 mg/dL (7-20); CALCIUM 9.3 mg/dL (8.4-10.2); CARBON DIOXIDE 23 mmol/L (22-30); CHLORIDE 106 mmol/L (98-107); GLUCOSE 150 mg/dL (75-110); POTASSIUM 4.4 mmol/L (3.6-5.0)
[2019-07-13] MEDS: INSULIN LISPRO 100 UNIT/ML 3 ML VIAL SUBCUT SCH ×4 (08:29→22:13)
--- NOTE | 2019-07-13 08:42 | PDOC PROGRESS REPORT ---
Subjective Progress Note for:: 07/12/19 Subjective:: Patient is a 59-year-old male admitted for hypertensive urgency, diastolic CHF exacerbation, AK I on CKD 3B. 07/12: Patient complains of generalized fatigue and weakness, shortness of breath/dyspnea on exertion which is better after diuresis. Reason For Visit: HTN URGENCY, DHF, DM, ARF Physical Exam Vital Signs: Temp Pulse Resp BP Pulse Ox 98.2 F 102 H 20 176/77 H 95 07/12/19 16:01 07/12/19 16:01 07/12/19 16:01 07/12/19 16:01 07/12/19 16:21 Intake & Output 07/11/19 07/12/19 07/13/19 06:59 06:59 06:59 Intake Total 480 Output Total 300 1675 Balance -300 -1195 Weight 126.6 kg General appearance: PRESENT: no acute distress, well-developed, well-nourished Head exam: PRESENT: atraumatic, normocephalic Eye exam: PRESENT: conjunctiva pink Mouth exam: PRESENT: moist Respiratory exam: PRESENT: crackles - Mild at bases Cardiovascular exam: PRESENT: RRR. ABSENT: diastolic murmur, rubs, systolic murmur GI/Abdominal exam: PRESENT: normal bowel sounds, soft. ABSENT: distended, guarding, mass, organolmegaly, rebound, tenderness Extremities exam: PRESENT: pedal edema Neurological exam: PRESENT: alert, awake Psychiatric exam: PRESENT: appropriate affect, normal mood Skin exam: PRESENT: dry, intact, warm Results Laboratory Results: 07/11/19 22:23 07/12/19 06:10 07/11/19 07/11/19 07/11/19 22:23 22:23 22:23 WBC 8.5 RBC 4.81 Hgb 12.0 L Hct 37.2 L MCV 77 L MCH 25.0 L MCHC 32.4 RDW 16.5 H Plt Count 440 Seg Neutrophils % 77.3 Retic Count (auto) Carbonic Acid 1.50 H HCO3/H2CO3 Ratio 16:1 ABG pH 7.30 L ABG pCO2 49.8 H ABG pO2 41.8 L ABG HCO3 24.2 H ABG O2 Saturation 72.0 L ABG Base Excess -2.6 FiO2 3L Sodium 139.1 Potassium 4.7 Chloride 104 Carbon Dioxide 24 Anion Gap 11 BUN 38 H Creatinine 4.20 H Est GFR ( Amer) 18 L Glucose 200 H Calcium 9.4 Phosphorus Iron TIBC % Saturation Ferritin Total Bilirubin 0.8 AST 30 Alkaline Phosphatase 87 Total Protein 7.2 Albumin 3.7 Vitamin B12 Folate TSH PTH Intact Urine Color Urine Appearance Urine pH Ur Specific Hamilton Urine Protein Urine Glucose (UA) Urine Ketones Urine Blood Urine Nitrite Ur Leukocyte Esterase Urine WBC (Auto) Urine RBC (Auto) 07/12/19 07/12/19 07/12/19 00:11 06:10 06:10 WBC RBC Hgb Hct MCV MCH MCHC RDW Plt Count Seg Neutrophils % Retic Count (auto) Carbonic Acid HCO3/H2CO3 Ratio ABG pH ABG pCO2 ABG pO2 ABG HCO3 ABG O2 Saturation ABG Base Excess FiO2 Sodium 138.8 Potassium 4.7 Chloride 104 Carbon Dioxide 23 Anion Gap 12 BUN 39 H Creatinine 3.86 H Est GFR ( Amer) 20 L Glucose 179 H Calcium 9.1 Phosphorus Iron TIBC % Saturation Ferritin Total Bilirubin AST Alkaline Phosphatase Total Protein Albumin Vitamin B12 Folate TSH 1.19 PTH Intact Urine Color YELLOW Urine Appearance CLEAR Urine pH 6.0 Ur Specific Hamilton 1.009 Urine Protein 100 H Urine Glucose (UA) 50 H Urine Ketones NEGATIVE Urine Blood NEGATIVE Urine Nitrite NEGATIVE Ur Leukocyte Esterase NEGATIVE Urine WBC (Auto) 5 Urine RBC (Auto) 1 07/12/19 07/12/19 07/12/19 06:10 06:10 13:11 WBC RBC Hgb Hct MCV MCH MCHC RDW Plt Count Seg Neutrophils % Retic Count (auto) 2.19 Carbonic Acid HCO3/H2CO3 Ratio ABG pH ABG pCO2 ABG pO2 ABG HCO3 ABG O2 Saturation ABG Base Excess FiO2 Sodium Potassium Chloride Carbon Dioxide Anion Gap BUN Creatinine Est GFR ( Amer) Glucose Calcium Phosphorus 4.9 H Iron 30.7 L TIBC 268 % Saturation 11 Ferritin 127.00 Total Bilirubin AST Alkaline Phosphatase Total Protein Albumin Vitamin B12 787.0 Folate 6.52 TSH PTH Intact 116.8 H Urine Color Urine Appearance Urine pH Ur Specific Hamilton Urine Protein Urine Glucose (UA) Urine Ketones Urine Blood Urine Nitrite Ur Leukocyte Esterase Urine WBC (Auto) Urine RBC (Auto) 07/11/19 07/11/19 07/12/19 22:23 22:23 00:44 Creatine Kinase 144 CK-MB (CK-2) 1.98 Troponin I 0.052 0.056 NT-Pro-B Natriuret Pep 07/12/19 00:44 Creatine Kinase CK-MB (CK-2) Troponin I NT-Pro-B Natriuret Pep 2510 H Impressions: Chest X-Ray 07/11/19 22:23 IMPRESSION: Cardiomegaly with interstitial and airspace opacities likely reflecting pulmonary edema. Suspected tiny bibasilar effusions copyright 2010 [employer]- All Rights Reserved Renal Ultrasound 07/12/19 00:00 IMPRESSION: LIMITED STUDY. SUBOPTIMAL VISUALIZATION OF THE KIDNEYS. NO HYDRONEPHROSIS. BILATERAL PLEURAL EFFUSIONS. Assessment and Plan - Diagnosis (1) Hypertensive urgency Is this a current diagnosis for this admission?: Yes Plan: -beta-klaus, hydralazine, Norvasc changed to nifedipine, nitrates restarted -Gradually increase BP meds for controlled blood pressure reduction down to goal less than 120/80 (2) Acute kidney injury superimposed on chronic kidney disease Is this a current diagnosis for this admission?: Yes Plan: Due to hypertensive urgency and cardiorenal volume overload as above Treat underlying cause which is high blood pressure Diuresis Nephrology consulted, appreciate their help Trend BMP Baseline creatinine approximately 1.1-1.5 per records (3) Chronic atrial fibrillation Is this a current diagnosis for this admission?: Yes Plan: -Rate controlled continue beta-klaus, continue home meds On chronic anticoagulation with apixaban, continued (4) Diabetes mellitus Qualifiers: Diabetes mellitus type: type 2 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 (5) Chronic diastolic (congestive) heart failure Is this a current diagnosis for this admission?: Yes Plan: Acute on chronic diastolic CHF due to hypertensive urgency as above Continue home cardiac medications (6) Hyperlipidemia Qualifiers: Hyperlipidemia type: mixed hyperlipidemia Qualified Code(s): E78.2 - Mixed hyperlipidemia Is this a current diagnosis for this admission?: Yes (7) Hypertension Qualifiers: Hypertension type: essential hypertension Qualified Code(s): I10 - Essential (primary) hypertension Is this a current diagnosis for this admission?: Yes Plan: As above (8) Sleep apnea, obstructive Is this a current diagnosis for this admission?: Yes - Time Time Spent with patient: 35 or more minutes Anticipated discharge: Home Within: within 48 hours - Inpatient Certification Medical Necessity: Significant Comorbidiites Make Outpatient Treatment Too Risky, Need Close Monitoring Due to Risk of Patient Decompensation
[2019-07-13] MEDS: CARVEDILOL 12.5 MG TABLET PO SCH ×2 (09:17→22:13)
[2019-07-13] MEDS: DOCUSATE SODIUM 100 MG CAPSULE PO SCH ×2 (09:17→17:56)
[2019-07-13] MEDS: APIXABAN 2.5 MG TABLET PO SCH ×2 (09:17→17:56)
[2019-07-13] MEDS: FUROSEMIDE INJ/PF 40 MG/4 ML SDV IV SCH ×2 (09:17→22:14)
[2019-07-13] MEDS: ISOSORBIDE MONONITRATE 60 MG TAB.ER.24H PO SCH (09:18)
[2019-07-13] MEDS ORDERED: FUROSEMIDE INJ/PF 20 MG/2 ML SDV IV SCH (10:00)
[2019-07-13] MEDS ORDERED: AMLODIPINE BESYLATE 10 MG TABLET PO SCH (10:00)
[2019-07-13] MEDS ORDERED: NIFEDIPINE 30 MG TAB.ER.24 PO SCH (10:00)
--- NOTE | 2019-07-13 10:41 | PDOC PROGRESS REPORT ---
Subjective Progress Note for:: 07/13/19 Subjective:: Patient states that he is feeling better today except for feeling tired. He is breathing better and he thinks that his leg swelling is also going down. He has made about 3110 mL of urine output the past 24 hours. He has no other new complaints. Reason For Visit: HTN URGENCY, DHF, DM, ARF Physical Exam Vital Signs: Temp Pulse Resp BP Pulse Ox 98.8 F 96 18 168/86 H 93 07/13/19 07:24 07/13/19 07:24 07/13/19 07:24 07/13/19 07:24 07/13/19 07:24 Intake & Output 07/12/19 07/13/19 07/14/19 06:59 06:59 06:59 Intake Total 480 Output Total 300 3110 Balance -300 -2630 Weight 126.6 kg 125.8 kg Exam: General appearance: PRESENT: no acute distress, cooperative, well-developed, well-nourished Head exam: PRESENT: atraumatic, normocephalic Eye exam: PRESENT: conjunctiva pink, PERRLA. ABSENT: scleral icterus Neck exam: ABSENT: JVD Respiratory exam: PRESENT: Diminished breath sounds. ABSENT: crackles, rales, rhonchi, unlabored, wheezes Cardiovascular exam: PRESENT: Irregularly irregular rate rhythm -+S1, +S2. ABSENT: diastolic murmur, systolic murmur GI/Abdominal exam: PRESENT: normal bowel sounds, soft. ABSENT: guarding, mass, tenderness Extremities exam: Grade 2 bilateral lower extremity pitting edema Neurological exam: PRESENT: alert, awake, oriented to person, place and time. Skin exam: PRESENT: dry, warm, Results Laboratory Results: 07/13/19 05:02 07/13/19 05:02 07/12/19 07/12/19 07/12/19 06:10 06:10 13:11 WBC RBC Hgb Hct MCV MCH MCHC RDW Plt Count Seg Neutrophils % Retic Count (auto) 2.19 Sodium Potassium Chloride Carbon Dioxide Anion Gap BUN Creatinine Est GFR ( Amer) Glucose Calcium Phosphorus 4.9 H Magnesium Iron 30.7 L TIBC 268 % Saturation 11 Ferritin 127.00 Vitamin B12 787.0 Folate 6.52 PTH Intact 116.8 H 07/12/19 07/13/19 07/13/19 21:02 05:02 05:02 WBC 9.1 RBC 4.77 Hgb 12.0 L Hct 36.2 L MCV 76 L MCH 25.1 L MCHC 33.1 RDW 16.8 H Plt Count 383 Seg Neutrophils % 82.2 H Retic Count (auto) Sodium 139.7 Potassium 4.4 Chloride 106 Carbon Dioxide 23 Anion Gap 11 BUN 36 H Creatinine 3.39 H Est GFR ( Amer) 23 L Glucose 150 H Calcium 9.3 Phosphorus Magnesium 2.3 Iron TIBC % Saturation Ferritin Vitamin B12 Folate PTH Intact 07/11/19 07/11/19 07/12/19 22:23 22:23 00:44 Creatine Kinase 144 CK-MB (CK-2) 1.98 Troponin I 0.052 0.056 NT-Pro-B Natriuret Pep 07/12/19 00:44 Creatine Kinase CK-MB (CK-2) Troponin I NT-Pro-B Natriuret Pep 2510 H Impressions: Chest X-Ray 07/11/19 22:23 IMPRESSION: Cardiomegaly with interstitial and airspace opacities likely reflecting pulmonary edema. Suspected tiny bibasilar effusions copyright 2010 [employer]- All Rights Reserved Renal Ultrasound 07/12/19 00:00 IMPRESSION: LIMITED STUDY. SUBOPTIMAL VISUALIZATION OF THE KIDNEYS. NO HYDRONEPHROSIS. BILATERAL PLEURAL EFFUSIONS. Assessment & Plan - Diagnosis (1) Acute kidney injury superimposed on chronic kidney disease Is this a current diagnosis for this admission?: Yes Plan: Acute worsening of kidney function due to prerenal factors including CHF and hypertension. Currently nonoliguric and is responding well to diuresis. Kidney function is improving. Patient is also slowly improving clinically. Continue current management and IV diuresis. (2) Congestive heart failure (CHF) Qualifiers: Heart failure type: diastolic Heart failure chronicity: acute on chronic Qualified Code(s): I50.9 - Heart failure, unspecified Is this a current diagnosis for this admission?: Yes Plan: LVEF was 65% on 04/22/2018. This is likely diastolic dysfunction. Continue IV diuresis with the same dose of IV Lasix. (3) Hypertensive urgency Is this a current diagnosis for this admission?: Yes Plan: Slowly improving. Hospitalist adjusting meds. (4) Chronic atrial fibrillation Is this a current diagnosis for this admission?: Yes Plan: Rate controlled. On Eliquis. (5) Chronic kidney disease, stage III (moderate) Is this a current diagnosis for this admission?: Yes Plan: Secondary to hypertensive nephrosclerosis. Associated with nonnephrotic range proteinuria with urine protein to creatinine ratio of 1.2. Urine protein electrophoresis is pending. (6) Anemia in chronic kidney disease (CKD) Is this a current diagnosis for this admission?: Yes Plan: His iron showed transferrin saturation of only 11% with ferritin of 127. I will give him a dose of IV Injectafer today. (7) Chronic kidney disease-mineral and bone disorder Is this a current diagnosis for this admission?: Yes Plan: PTH is 116.8 and PO4 is 4.9. Low Phosphorus diet. - Time Time with patient: 15-25 minutes
[2019-07-13] MEDS ORDERED: FERRIC CARBOXYMALTOSE 750 MG in NORMAL SALINE 100 ML IV ONE ×2 (12:30→14:30)
--- NOTE | 2019-07-13 14:33 | PDOC PROGRESS REPORT ---
Subjective Progress Note for:: 07/13/19 Subjective:: Patient is a 59-year-old male admitted for hypertensive urgency, diastolic CHF exacerbation, AK I on CKD 3B. 07/12: Patient complains of generalized fatigue and weakness, shortness of breath/dyspnea on exertion which is better after diuresis. 07/13: Patient states he is experiencing less lower extremity edema and his breathing is less labored today. He still does have some dyspnea on exertion though which is worse than baseline. He does not use home oxygen per patient. He is having a great deal of urine output which seems to coincide with his improved symptoms. Blood pressure is still elevated above goal but certainly much better than previous days, medications again are increased today. Echocardiogram reviewed which showed acute on chronic combined CHF. Reason For Visit: HTN URGENCY, DHF, DM, ARF Physical Exam Vital Signs: Temp Pulse Resp BP Pulse Ox 98.6 F 78 18 147/79 H 98 07/13/19 11:04 07/13/19 11:04 07/13/19 11:04 07/13/19 11:04 07/13/19 11:04 Intake & Output 07/12/19 07/13/19 07/14/19 06:59 06:59 06:59 Intake Total 480 Output Total 300 3110 Balance -300 -2630 Weight 126.6 kg 125.8 kg General appearance: PRESENT: no acute distress, well-developed, well-nourished Head exam: PRESENT: atraumatic, normocephalic Eye exam: PRESENT: conjunctiva pink Mouth exam: PRESENT: moist Respiratory exam: PRESENT: clear to auscultation farooq. ABSENT: rales, rhonchi, wheezes Cardiovascular exam: PRESENT: RRR. ABSENT: diastolic murmur, rubs, systolic murmur GI/Abdominal exam: PRESENT: normal bowel sounds, soft. ABSENT: distended, gu arding, mass, organolmegaly, rebound, tenderness Extremities exam: PRESENT: +2 edema - Improved Musculoskeletal exam: PRESENT: ambulatory Neurological exam: PRESENT: alert, awake Psychiatric exam: PRESENT: appropriate affect, normal mood Skin exam: PRESENT: dry, intact, warm Results Laboratory Results: 07/13/19 05:02 07/13/19 05:02 07/12/19 07/12/19 07/12/19 06:10 13:11 21:02 WBC RBC Hgb Hct MCV MCH MCHC RDW Plt Count Seg Neutrophils % Sodium Potassium Chloride Carbon Dioxide Anion Gap BUN Creatinine Est GFR ( Amer) Glucose Calcium Phosphorus 4.9 H Magnesium 2.3 Iron 30.7 L TIBC 268 % Saturation 11 Ferritin 127.00 Vitamin B12 787.0 Folate 6.52 PTH Intact 116.8 H 07/13/19 07/13/19 05:02 05:02 WBC 9.1 RBC 4.77 Hgb 12.0 L Hct 36.2 L MCV 76 L MCH 25.1 L MCHC 33.1 RDW 16.8 H Plt Count 383 Seg Neutrophils % 82.2 H Sodium 139.7 Potassium 4.4 Chloride 106 Carbon Dioxide 23 Anion Gap 11 BUN 36 H Creatinine 3.39 H Est GFR ( Amer) 23 L Glucose 150 H Calcium 9.3 Phosphorus Magnesium Iron TIBC % Saturation Ferritin Vitamin B12 Folate PTH Intact 07/11/19 07/11/19 07/12/19 22:23 22:23 00:44 Creatine Kinase 144 CK-MB (CK-2) 1.98 Troponin I 0.052 0.056 NT-Pro-B Natriuret Pep 07/12/19 00:44 Creatine Kinase CK-MB (CK-2) Troponin I NT-Pro-B Natriuret Pep 2510 H Impressions: Chest X-Ray 07/11/19 22:23 IMPRESSION: Cardiomegaly with interstitial and airspace opacities likely reflecting pulmonary edema. Suspected tiny bibasilar effusions copyright 2010 [employer]- All Rights Reserved Renal Ultrasound 07/12/19 00:00 IMPRESSION: LIMITED STUDY. SUBOPTIMAL VISUALIZATION OF THE KIDNEYS. NO HYDRONEPHROSIS. BILATERAL PLEURAL EFFUSIONS. Assessment and Plan - Diagnosis (1) Hypertensive urgency Is this a current diagnosis for this admission?: Yes Plan: -beta-klaus, hydralazine, Norvasc changed to nifedipine, nitrates restarted -Gradually increase BP meds for controlled blood pressure reduction down to goal less than 120/80 -Continued increasing BP meds, getting closer to goal (2) Acute on chronic combined systolic and diastolic CHF (congestive heart failure) Is this a current diagnosis for this admission?: Yes Plan: Echocardiogram on 07/12/2019 reviewed which showed RV systolic dysfunction as well as diastolic dysfunction, no specific mention of reduced EF and echocardiogram report. Cardiac medications as above continued and increased gradually Must have follow-up with cardiology outpatient (3) Acute kidney injury superimposed on chronic kidney disease Is this a current diagnosis for this admission?: Yes Plan: Due to hypertensive urgency and cardiorenal volume overload as above Treat underlying cause which is high blood pressure Diuresis Nephrology consulted, appreciate their help Trend BMP Creatinine dropping as of 07/13 Baseline creatinine approximately 1.1-1.5 per records (4) Chronic atrial fibrillation Is this a current diagnosis for this admission?: Yes (5) Diabetes mellitus Qualifiers: Diabetes mellitus type: type 2 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 Diabetes mellitus complication status: with kidney complications Diabetes mellitus complication detail: with chronic kidney disease Chronic kidney disease stage: stage 4 (severe) Qualified Code(s): E11.22 - Type 2 diabetes mellitus with diabetic chronic kidney disease; N18.4 - Chronic kidney disease, stage 4 (severe) Is this a current diagnosis for this admission?: Yes (6) Chronic diastolic (congestive) heart failure Is this a current diagnosis for this admission?: Yes (7) Hyperlipidemia Qualifiers: Hyperlipidemia type: mixed hyperlipidemia Qualified Code(s): E78.2 - Mixed hyperlipidemia Is this a current diagnosis for this admission?: Yes (8) Hypertension Qualifiers: Hypertension type: essential hypertension Qualified Code(s): I10 - Ess ential (primary) hypertension Is this a current diagnosis for this admission?: Yes (9) Sleep apnea, obstructive Is this a current diagnosis for this admission?: Yes Plan: Was diagnosed with JAMIL approximately 3 years ago but never got a CPAP; needs repeat testing in outpatient to be arranged by PCP, if he qualifies for CPAP he must use it consistently. I discussed at length with patient that treating his sleep apnea could very well greatly improve his heart failure and hypertension. - Time Time Spent with patient: 25-34 minutes Anticipated discharge: Home Within: within 48 hours - Inpatient Certification Medical Necessity: Significant Comorbidiites Make Outpatient Treatment Too Risky, Need Close Monitoring Due to Risk of Patient Decompensation
[2019-07-14] MEDS: HYDRALAZINE HCL 50 MG TABLET PO SCH ×3 (01:03→17:52)
[2019-07-14 06:16] LABS: ANION GAP 11 (5-19); BLOOD UREA NITROGEN 35 mg/dL (7-20); CALCIUM 9.5 mg/dL (8.4-10.2); CARBON DIOXIDE 25 mmol/L (22-30); CHLORIDE 105 mmol/L (98-107); GLUCOSE 137 mg/dL (75-110); POTASSIUM 4.6 mmol/L (3.6-5.0)
[2019-07-14] MEDS ORDERED: ACETAMINOPHEN 325 MG TABLET PO PRN (09:00)
[2019-07-14] MEDS: CARVEDILOL 12.5 MG TABLET PO SCH ×2 (09:17→22:17)
[2019-07-14] MEDS: NIFEDIPINE 30 MG TAB.ER.24 PO SCH (09:17)
[2019-07-14] MEDS: APIXABAN 2.5 MG TABLET PO SCH ×2 (09:18→17:52)
[2019-07-14] MEDS: FUROSEMIDE INJ/PF 40 MG/4 ML SDV IV SCH (09:19)
[2019-07-14] MEDS: ISOSORBIDE MONONITRATE 60 MG TAB.ER.24H PO SCH (09:21)
[2019-07-14] MEDS: INSULIN LISPRO 100 UNIT/ML 3 ML VIAL SUBCUT SCH ×4 (09:26→22:18)
--- NOTE | 2019-07-14 11:16 | RADIOLOGY REPORT (SQ) ---
EXAM DESCRIPTION: [facility] DUPLEX ART/FLORA FLOW COMPLETED DATE/TIME: 07/14/2019 10:27 am REASON FOR STUDY: Refractory HTN - RENAL ARTERIES AND VEINS FLOW COMPARISON: 08/29/2011. TECHNIQUE: Realtime and static grayscale images acquired. Selected color Doppler, velocities and spe ctral images recorded. LIMITATIONS: Limited study due to the patient's body habitus and inability to breath hold. FINDINGS: RIGHT KIDNEY: RENAL ARTERY VELOCITIES: 35 cm/sec. Segmental artery velocity 35 cm/sec. RENAL VEIN: Color doppler flow present, patent. VELOCITY RATIO: 0.39. Normal waveforms. KIDNEY: Normal size. No significant pathology. LEFT KIDNEY: RENAL ARTERY VELOCITIES: 68 cm/sec. Segmental artery velocity 29 cm/sec. RENAL VEIN: Color doppler flow present, patent. VELOCITY RATIO: 0.75. Normal waveforms. KIDNEY: Normal size. No significant pathology. BLADDER: Normal. OTHER: No other significant finding. IMPRESSION: NO DOPPLER EVIDENCE OF HEMODYNAMICALLY SIGNIFICANT RENAL ARTERY STENOSIS. COMMENT: NORMAL RENAL ARTERY/AORTA VELOCITY RATIO IS LESS THAN OR EQUAL TO 3.5. TECHNICAL DOCUMENTATION: JOB ID: [id number] [employer]- All Rights Reserved Reading location - IP/workstation name: [email or web address]
[2019-07-14] MEDS: DOCUSATE SODIUM 100 MG CAPSULE PO SCH ×2 (12:56→17:53)
--- NOTE | 2019-07-14 13:07 | PDOC PROGRESS REPORT ---
Subjective Progress Note for:: 07/14/19 Subjective:: Patient continues to do well. His blood pressure is slowly improved and almost controlled with current blood pressure regimen. His urine output remains to be excellent with IV Lasix. He made about 3200 mL of of urine output for the past 24 hours. He is breathing continues to improve and is not even requiring oxygen now. He states that this leg swelling is also slowly improving. Reason For Visit: HTN URGENCY, DHF, DM, ARF Physical Exam Vital Signs: Temp Pulse Resp BP Pulse Ox 98.2 F 81 18 133/79 H 95 07/14/19 10:51 07/14/19 10:51 07/14/19 10:51 07/14/19 10:51 07/14/19 10:51 Intake & Output 07/13/19 07/14/19 07/15/19 06:59 06:59 06:59 Intake Total 480 1115 Output Total 3110 3250 Balance -2630 -2135 Weight 125.8 kg 113.8 kg Exam: General appearance: PRESENT: no acute distress, cooperative, well-developed, well-nourished Head exam: PRESENT: atraumatic, normocephalic Eye exam: PRESENT: conjunctiva slightly pale, PERRLA. ABSENT: scleral icterus Neck exam: ABSENT: JVD Respiratory exam: PRESENT: Normal breath sounds. ABSENT: crackles, rales, rhonchi, unlabored, wheezes Cardiovascular exam: PRESENT: Regular rate rhythm -+S1, +S2. ABSENT: diastolic murmur, systolic murmur GI/Abdominal exam: PRESENT: normal bowel sounds, soft. ABSENT: guarding, mass, tenderness Extremities exam: Grade 2 bilateral lower extremity pitting edema Neurological exam: PRESENT: alert, awake, oriented to person, place and time. Skin exam: PRESENT: dry, warm, Results Laboratory Results: 07/13/19 05:02 07/14/19 05:24 07/14/19 05:24 Sodium 141.3 Potassium 4.6 Chloride 105 Carbon Dioxide 25 Anion Gap 11 BUN 35 H Creatinine 3.37 H Est GFR ( Amer) 23 L Glucose 137 H Calcium 9.5 07/11/19 07/11/19 07/12/19 22:23 22:23 00:44 Creatine Kinase 144 CK-MB (CK-2) 1.98 Troponin I 0.052 0.056 NT-Pro-B Natriuret Pep 07/12/19 00:44 Creatine Kinase CK-MB (CK-2) Troponin I NT-Pro-B Natriuret Pep 2510 H Impressions: Chest X-Ray 07/11/19 22:23 IMPRESSION: Cardiomegaly with interstitial and airspace opacities likely reflecting pulmonary edema. Suspected tiny bibasilar effusions copyright 2010 [employer]- All Rights Reserved Renal Ultrasound 07/12/19 00:00 IMPRESSION: LIMITED STUDY. SUBOPTIMAL VISUALIZATION OF THE KIDNEYS. NO HYDRONEPHROSIS. BILATERAL PLEURAL EFFUSIONS. Assessment & Plan - Diagnosis (1) Acute kidney injury superimposed on chronic kidney disease Is this a current diagnosis for this admission?: Yes Plan: Acute worsening of kidney function due to prerenal factors including CHF and hypertension. Currently nonoliguric and is responding well to diuresis. Kidney function is improving but seems to be plateauing. Patient may be reaching his new baseline kidney function. Patient is also slowly improving clinically. Continue current management and IV diuresis. (2) Congestive heart failure (CHF) Qualifiers: Heart failure type: diastolic Heart failure chronicity: acute on chronic Qualified Code(s): I50.33 - Acute on chronic diastolic (congestive) heart failure Is this a current diagnosis for this admission?: Yes Plan: LVEF was 65% on 04/22/2018. This is likely diastolic dysfunction. Continue IV diuresis with the same dose of IV Lasix. (3) Hypertensive urgency Is this a current diagnosis for this admission?: Yes Plan: Slowly improving. Hospitalist adjusting meds. He has pending plasma aldosterone, and PRA, . TSH is normal. Duplex of renal arteries is negative for renal artery stenosis. (4) Chronic atrial fibrillation Is this a current diagnosis for this admission?: Yes Plan: Rate controlled. On Eliquis. (5) Chronic kidney disease, stage III (moderate) Is this a current diagnosis for this admission?: Yes Plan: Secondary to hypertensive nephrosclerosis. Associated with nonnephrotic range proteinuria with urine protein to creatinine ratio of 1.2. Urine protein electrophoresis is pending. (6) Anemia in chronic kidney disease (CKD) Is this a current diagnosis for this admission?: Yes Plan: His iron showed transferrin saturation of only 11% with ferritin of 127. He received a dose of IV Injectafer yesterday, 07/13. (7) Chronic kidney disease-mineral and bone disorder Is this a current diagnosis for this admission?: Yes Plan: PTH is 116.8 and PO4 is 4.9. Low Phosphorus diet. - Time Time with patient: 15-25 minutes
--- NOTE | 2019-07-14 13:59 | PDOC PROGRESS REPORT ---
Subjective Subjective:: Patient is a 59-year-old male admitted for hypertensive urgency, diastolic CHF exacerbation, AK I on CKD 3B. 07/12: Patient complains of generalized fatigue and weakness, shortness of breath/dyspnea on exertion which is better after diuresis. 07/13: Patient states he is experiencing less lower extremity edema and his joaquim athing is less labored today. He still does have some dyspnea on exertion though which is worse than baseline. He does not use home oxygen per patient. He is having a great deal of urine output which seems to coincide with his improved symptoms. Blood pressure is still elevated above goal but certainly much better than previous days, medications again are increased today. Echocardiogram reviewed which showed acute on chronic combined CHF. 07/14: Patient remains tachycardic intermittently though his blood pressure is trending much better. He states his breathing is improved and he is now off supplemental oxygen. Order has been placed for 6-minute walk test. Creatinine is approximately the same at 3.3, suspect this may be his new baseline based on his records I have reviewed. Patient states he has known CKD 4. Reason For Visit: HTN URGENCY, DHF, DM, ARF Physical Exam Vital Signs: Temp Pulse Resp BP Pulse Ox 98.2 F 81 18 133/79 H 95 07/14/19 10:51 07/14/19 10:51 07/14/19 10:51 07/14/19 10:51 07/14/19 10:51 Intake & Output 07/13/19 07/14/19 07/15/19 06:59 06:59 06:59 Intake Total 480 1115 Output Total 3110 3250 Balance -2630 -2135 Weight 125.8 kg 113.8 kg General appearance: PRESENT: no acute distress, well-developed, well-nourished Head exam: PRESENT: atraumatic, normocephalic Eye exam: PRESENT: conjunctiva pink Mouth exam: PRESENT: moist Respiratory exam: PRESENT: clear to auscultation farooq. ABSENT: rales, rhonchi, wheezes Cardiovascular exam: PRESENT: RRR. ABSENT: diastolic murmur, rubs, systolic murmur GI/Abdominal exam: PRESENT: normal bowel sounds, soft. ABSENT: distended, guarding, mass, organolmegaly, rebound, tenderness Extremities exam: PRESENT: pedal edema, +1 edema Neurological exam: PRESENT: alert, awake Skin exam: PRESENT: dry, intact, warm Results Laboratory Results: 07/13/19 05:02 07/14/19 05:24 07/14/19 05:24 Sodium 141.3 Potassium 4.6 Chloride 105 Carbon Dioxide 25 Anion Gap 11 BUN 35 H Creatinine 3.37 H Est GFR ( Amer) 23 L Glucose 137 H Calcium 9.5 07/11/19 07/11/19 07/12/19 22:23 22:23 00:44 Creatine Kinase 144 CK-MB (CK-2) 1.98 Troponin I 0.052 0.056 NT-Pro-B Natriuret Pep 07/12/19 00:44 Creatine Kinase CK-MB (CK-2) Troponin I NT-Pro-B Natriuret Pep 2510 H Impressions: Chest X-Ray 07/11/19 22:23 IMPRESSION: Cardiomegaly with interstitial and airspace opacities likely reflecting pulmonary edema. Suspected tiny bibasilar effusions copyright 2011 [employer]- All Rights Reserved Renal Ultrasound 07/12/19 00:00 IMPRESSION: LIMITED STUDY. SUBOPTIMAL VISUALIZATION OF THE KIDNEYS. NO HYDRONEPHROSIS. BILATERAL PLEURAL EFFUSIONS. Vascular Ultrasound 07/14/19 00:00 IMPRESSION: NO DOPPLER EVIDENCE OF HEMODYNAMICALLY SIGNIFICANT RENAL ARTERY STENOSIS. Assessment and Plan - Diagnosis (1) Hypertensive urgency Is this a current diagnosis for this admission?: Yes Plan: -beta-klaus, hydralazine, Norvasc changed to nifedipine, nitrates restarted -Gradually increase BP meds for controlled blood pressure reduction down to goal less than 120/80 -Continued increasing BP meds, getting closer to goal Blood pressure significantly more controlled; must treat underlying sleep apnea and to maintain this control (2) Acute on chronic combined systolic and diastolic CHF (congestive heart failure) Is this a current diagnosis for this admission?: Yes Plan: Echocardiogram on 07/12/2019 reviewed which showed RV systolic dysfunction as well as diastolic dysfunction, no specific mention of reduced EF and echocardiogram report. Cardiac medications as above continued and increased gradually Must have follow-up with cardiology outpatient Changed to oral diuretics (3) Acute kidney injury superimposed on chronic kidney disease Is this a current diagnosis for this admission?: Yes (4) Chronic atrial fibrillation Is this a current diagnosis for this admission?: Yes (5) Diabetes mellitus Qualifiers: Diabetes mellitus type: type 2 Diabetes mellitus correction insulin use: without long term care phlebotomist use Diabetes mellitus complication status: with kidney complications Diabetes mellitus complication detail: with chronic kidney disease Chronic kidney disease stage: stage 4 (severe) Qualified Code(s): E11.22 - Type 2 diabetes mellitus with diabetic chronic kidney disease; N18.4 - Chronic kidney disease, stage 4 (severe) Is this a current diagnosis for this admission?: Yes (6) Chronic diastolic (congestive) heart failure Is this a current diagnosis for this admission?: Yes (7) Hyperlipidemia Qualifiers: Hyperlipidemia type: mixed hyperlipidemia Qualified Code(s): E78.2 - Mixed hyperlipidemia Is this a current diagnosis for this admission?: Yes (8) Hypertension Qualifiers: Hypertension type: essential hypertension Qualified Code(s): I10 - Essential (primary) hypertension Is this a current diagnosis for this admission?: Yes (9) Sleep apnea, obstructive Is this a current diagnosis for this admission?: Yes (10) CKD stage 4 due to type 2 diabetes mellitus Is this a current diagnosis for this admission?: Yes - Time Time Spent with patient: 15-24 minutes Medications reviewed and adjusted accordingly: Yes Anticipated discharge: Home Within: within 24 hours - Inpatient Certification Medical Necessity: Need Close Monitoring Due to Risk of Patient Decompensation - Possible discharge tomorrow if blood pressure continues to be controlled and creatinine is not worse. 6-minute walk test must be completed as well to evaluate for exertional dyspnea oxygen needs.
[2019-07-14 17:36] LABS: ALBUMIN UR 61.1 % (.); ALPHA-1-GLOBULIN URINE 9.5 % (.); ALPHA-2-GLOBULIN URINE 5.4 % (.); GAMMA GLOBULIN URINE 14.6 % (.); M-SPIKE % UR Not Observed % (Not Observ)
[2019-07-14] MEDS: GLIPIZIDE 5 MG TABLET PO SCH (17:51)
[2019-07-14] MEDS: FUROSEMIDE 40 MG TABLET PO SCH (17:52)
[2019-07-15] MEDS: HYDRALAZINE HCL 50 MG TABLET PO SCH ×2 (01:53→09:47)
[2019-07-15 07:16] LABS: ANION GAP 12 (5-19); BLOOD UREA NITROGEN 33 mg/dL (7-20); CALCIUM 9.3 mg/dL (8.4-10.2); CARBON DIOXIDE 23 mmol/L (22-30); CHLORIDE 105 mmol/L (98-107); GLUCOSE 119 mg/dL (75-110); POTASSIUM 4.5 mmol/L (3.6-5.0)
[2019-07-15] MEDS: GLIPIZIDE 5 MG TABLET PO SCH (08:21)
[2019-07-15] MEDS: INSULIN LISPRO 100 UNIT/ML 3 ML VIAL SUBCUT SCH ×2 (08:21→12:43)
[2019-07-15] MEDS: ISOSORBIDE MONONITRATE 60 MG TAB.ER.24H PO SCH (09:47)
[2019-07-15] MEDS: CARVEDILOL 12.5 MG TABLET PO SCH (09:47)
[2019-07-15] MEDS: FUROSEMIDE 40 MG TABLET PO SCH (09:48)
[2019-07-15] MEDS: APIXABAN 2.5 MG TABLET PO SCH (09:48)
[2019-07-15] MEDS: NIFEDIPINE 30 MG TAB.ER.24 PO SCH (09:48)
[2019-07-15] MEDS: DOCUSATE SODIUM 100 MG CAPSULE PO SCH (09:48)
[2019-07-15 11:49] VITALS: BP 118/68
--- NOTE | 2019-07-15 13:28 | PDOC PROGRESS REPORT ---
Subjective Progress Note for:: 07/15/19 Subjective:: Patient continues to do well. He states that he feels much better. He continues to make good amount of urine output and his kidney function continues to improve as well. Reason For Visit: HTN URGENCY, DHF, DM, ARF Physical Exam Vital Signs: Temp Pulse Resp BP Pulse Ox 98.2 F 77 16 118/68 97 07/15/19 11:44 07/15/19 11:44 07/15/19 11:44 07/15/19 11:44 07/15/19 11:44 Intake & Output 07/14/19 07/15/19 07/16/19 06:59 06:59 06:59 Intake Total 1115 1375 575 Output Total 3250 2100 400 Balance -2135 -725 175 Weight 113.8 kg 114.8 kg Exam: General appearance: PRESENT: no acute distress, cooperative, well-developed, well-nourished Head exam: PRESENT: atraumatic, normocephalic Eye exam: PRESENT: conjunctiva pink, PERRLA. ABSENT: scleral icterus Neck exam: ABSENT: JVD Respiratory exam: PRESENT: Normal breath sounds. ABSENT: crackles, rales, rhonchi, unlabored, wheezes Cardiovascular exam: PRESENT: Irregularly irregular rate rhythm -+S1, +S2. ABSENT: diastolic murmur, systolic murmur GI/Abdominal exam: PRESENT: normal bowel sounds, soft. ABSENT: guarding, mass, tenderness Extremities exam: Grade 2 bilateral lower extremity pitting edema Neurological exam: PRESENT: alert, awake, oriented to person, place and time. Skin exam: PRESENT: dry, warm, Results Laboratory Results: 07/13/19 05:02 07/15/19 06:03 07/15/19 06:03 Sodium 139.7 Potassium 4.5 Chloride 105 Carbon Dioxide 23 Anion Gap 12 BUN 33 H Creatinine 2.98 H Est GFR ( Amer) 26 L Glucose 119 H Calcium 9.3 07/11/19 07/11/19 07/12/19 22:23 22:23 00:44 Creatine Kinase 144 CK-MB (CK-2) 1.98 Troponin I 0.052 0.056 NT-Pro-B Natriuret Pep 07/12/19 00:44 Creatine Kinase CK-MB (CK-2) Troponin I NT-Pro-B Natriuret Pep 2510 H Impressions: Chest X-Ray 07/11/19 22:23 IMPRESSION: Cardiomegaly with interstitial and airspace opacities likely reflecting pulmonary edema. Suspected tiny bibasilar effusions copyright [address] [employer]- All Rights Reserved Renal Ultrasound 07/12/19 00:00 IMPRESSION: LIMITED STUDY. SUBOPTIMAL VISUALIZATION OF THE KIDNEYS. NO HYDRONEPHROSIS. BILATERAL PLEURAL EFFUSIONS. Vascular Ultrasound 07/14/19 00:00 IMPRESSION: NO DOPPLER EVIDENCE OF HEMODYNAMICALLY SIGNIFICANT RENAL ARTERY STENOSIS. Assessment & Plan - Diagnosis (1) Acute kidney injury superimposed on chronic kidney disease Is this a current diagnosis for this admission?: Yes Plan: Acute worsening of kidney function due to prerenal factors including CHF and hy pertension. Currently nonoliguric and is responding well to diuresis. Kidney function is improving very close to his baseline kidney function if not already of his baseline. Patient may be reaching his new baseline kidney function. Patient is also slowly improving clinically. Continue current management and diuretics. Agree with switching to oral diuretics in preparation for discharge. From nephrology standpoint I think patient can be discharged home anytime from today. We will be happy to see the patient for follow-up visit in the next 2 to 4 weeks with repeat basic metabolic panel. (2) Congestive heart failure (CHF) Qualifiers: Heart failure type: diastolic Heart failure chronicity: acute on chronic Qualified Code(s): I50.33 - Acute on chronic diastolic (congestive) heart failure Is this a current diagnosis for this admission?: Yes Plan: LVEF was 65% on 04/22/2018. Echocardiogram this time showed LVH with mild LV diastolic dysfunction. The left ventricular ejection fraction was estimated to be normal as well. Currently compensated. (3) Hypertensive urgency Is this a current diagnosis for this admission?: Yes Plan: He has pending plasma aldosterone, and PRA, . TSH is normal. Duplex of renal arteries is negative for renal artery stenosis. Blood pressure has been better controlled with adjustment of medications. Continue the same upon discharge. (4) Chronic atrial fibrillation Is this a current diagnosis for this admission?: Yes Plan: Rate controlled. On Eliquis. (5) Chronic kidney disease, stage III (moderate) Is this a current diagnosis for this admission?: Yes Plan: Secondary to hypertensive nephrosclerosis. Associated with nonnephrotic range proteinuria with urine protein to creatinine ratio of 1.2. Urine protein electrophoresis is negative for monoclonal spike. Kidney ultrasound showed relatively small kidneys bilaterally with the right kidney at 8.7 and left kidney at 8.2 cm. No hydronephrosis was found. (6) Anemia in chronic kidney disease (CKD) Is this a current diagnosis for this admission?: Yes Plan: His iron showed transferrin saturation of only 11% with ferritin of 127. He received a dose of IV Injectafer yesterday, 07/13. (7) Chronic kidney disease-mineral and bone disorder Is this a current diagnosis for this admission?: Yes Plan: PTH is 116.8 and PO4 is 4.9. Low Phosphorus diet. (8) Sleep apnea, obstructive Is this a current diagnosis for this admission?: Yes Plan: Patient advised to follow-up with his sleep specialist to get a CPAP machine at home. - Time Time with patient: 15-25 minutes
--- NOTE | 2019-07-15 13:53 | PDOC DISCHARGE SUMMARY ---
Impression - Admit/DC Date/PCP Admission Date/Primary Care Provider: 07/12/19 04:10 ERMA DESAI Discharge Date: 07/15/19 - Discharge Diagnosis (1) Hypertensive urgency Is this a current diagnosis for this admission?: Yes (2) Acute on chronic combined systolic and diastolic CHF (congestive heart failure) Is this a current diagnosis for this admission?: Yes (3) Acute kidney injury superimposed on chronic kidney disease Is this a current diagnosis for this admission?: Yes (4) Chronic atrial fibrillation Is this a current diagnosis for this admission?: Yes (5) Diabetes mellitus Is this a current diagnosis for this admission?: Yes (6) Chronic diastolic (congestive) heart failure Is this a current diagnosis for this admission?: Yes (7) Hyperlipidemia Is this a current diagnosis for this admission?: Yes (8) Hypertension Is this a current diagnosis for this admission?: Yes (9) Sleep apnea, obstructive Is this a current diagnosis for this admission?: Yes (10) CKD stage 4 due to type 2 diabetes mellitus Is this a current diagnosis for this admission?: Yes - Additional Information Resuscitation Status: Full Code Discharge Diet: Cardiac, Diabetic, Other (Comments) Discharge Activity: Activity As Tolerated, Balance Activity w/Rest, Weigh Daily Referrals: ERMA DESAI MD [Primary Care Provider] - 07/20/19 2:30 pm Prescriptions: Clonidine [Catapres-Tts 2 (0.2 mg/24 Hr) Transderm Ptch] 1 each TD Tu@10 #30 patch.tdwk Carvedilol [Coreg 25 mg Tablet] 2 tab PO Q12 #60 tab Glipizide [Glucotrol 5 mg Tablet] 2.5 mg PO BIDACBS #30 tablet Hydralazine HCl 100 mg PO Q8 1 Days #90 tablet Isosorbide Mononitrate [Imdur 60 mg Tablet.er] 60 mg PO DAILY #30 tab.er.24h Furosemide [Lasix 40 mg Tablet] 40 mg PO BID #60 tablet Nifedipine [Nifedipine ER] 90 mg PO DAILY #30 tablet.er Home Medications: Apixaban [Eliquis 2.5 mg Tablet] 2.5 mg PO BID #60 tablet 04/23/18 Atorvastatin Calcium [Lipitor 20 mg Tablet] 20 mg PO QHS #30 tablet 04/23/18 Ferrous Sulfate [Feosol 325 mg Tablet] 325 mg PO BIDPCBS #60 tablet 04/23/18 Carvedilol [Coreg 25 mg Tablet] 2 tab PO Q12 #60 tab 07/15/19 Clonidine [Catapres-Tts 2 (0.2 mg/24 Hr) [facility] 1 each TD Tu@10 #30 patch.tdwk 07/15/19 Furosemide [Lasix 40 mg Tablet] 40 mg PO BID #60 tablet 07/15/19 Glipizide [Glucotrol 5 mg Tablet] 2.5 mg PO BIDACBS #30 tablet 07/15/19 Hydralazine HCl 100 mg PO Q8 1 Days #90 tablet 07/15/19 Insulin Glargine,Hum.rec.anlog [Lantus Insulin 100 Unit/mL Insulin Pen] 10 unit SUBCUT QHS #10 ml 07/15/19 Isosorbide Mononitrate [Imdur 60 mg Tablet.er] 60 mg PO DAILY #30 tab.er.24h 07/15/19 Nifedipine [Nifedipine ER] 90 mg PO DAILY #30 tablet.er 07/15/19 History of Present Illiness History of Present Illness: Patient is a 59-year-old male admitted for hypertensive urgency, diastolic CHF exacerbation, AK I on CKD 3B. 07/12: Patient complains of generalized fatigue and weakness, shortness of breath/dyspnea on exertion which is better after diuresis. 07/13: Patient states he is experiencing less lower extremity edema and his br eathing is less labored today. He still does have some dyspnea on exertion though which is worse than baseline. He does not use home oxygen per patient. He is having a great deal of urine output which seems to coincide with his improved symptoms. Blood pressure is still elevated above goal but certainly much better than previous days, medications again are increased today. Echocardiogram reviewed which showed acute on chronic combined CHF. 07/14: Patient remains tachycardic intermittently though his blood pressure is trending much better. He states his breathing is improved and he is now off supplemental oxygen. Order has been placed for 6-minute walk test. Creatinine is approximately the same at 3.3, suspect this may be his new baseline based on his records I have reviewed. Patient states he has known CKD 4. 07/15: Discharged to home with close follow up. Hospital Course Hospital Course: (1) Hypertensive urgency Is this a current diagnosis for this admission?: Yes Plan: -beta-klaus, hydralazine, Norvasc changed to nifedipine, nitrates restarted -Gradually increase BP meds for controlled blood pressure reduction down to goal less than 120/80 -Continued increasing BP meds, getting closer to goal Blood pressure significantly more controlled; must treat underlying sleep apnea and to maintain this control, long d/w pt about this -ACEI/ARB and aldosterone antagonist medications have been stopped due to acute renal failure; can be restarted gradually outpatient by supervisor lime or PCP Must have prompt follow-up with supervisor lime Renal artery/vein PVL was negative for significant stenosis or clot (2) Acute on chronic combined systolic and diastolic CHF (congestive heart failure) Is this a current diagnosis for this admission?: Yes Plan: Echocardiogram on 07/12/2019 reviewed which showed RV systolic dysfunction as well as diastolic dysfunction, no specific mention of reduced EF and echocardiogram report. Cardiac medications as above continued and increased gradually Must have follow-up with cardiology outpatient Changed to oral diuretics; tolerated it well (3) Acute kidney injury superimposed on chronic kidney disease Is this a current diagnosis for this admission?: Yes (4) Chronic atrial fibrillation Is this a current diagnosis for this admission?: Yes (5) Diabetes mellitus Qualifiers: Diabetes mellitus type: type 2 Diabetes mellitus rn long term care insulin use: without rn long term care use Diabetes mellitus complication status: with kidney complications Diabetes mellitus complication detail: with chronic kidney disease Chronic kidney disease stage: stage 4 (severe) Qualified Code(s): E11.22 - Type 2 diabetes mellitus with diabetic chronic kidney disease; N18.4 - Chronic kidney disease, stage 4 (severe) Is this a current diagnosis for this admission?: Yes -Lantus reduced to 10 units QHS; suspect he is gradually needing less and less insulin as his renal function declines chronically; he is becoming higher risk for hypoglycemic events -low dose correctional insulin showed he needs approximately 22 units of short acting insulin along with low dose glipizide (6) Chronic diastolic (congestive) heart failure Is this a current diagnosis for this admission?: Yes (7) Hyperlipidemia Qualifiers: Hyperlipidemia type: mixed hyperlipidemia Qualified Code(s): E78.2 - Mixed hyperlipidemia Is this a current diagnosis for this admission?: Yes (8) Hypertension Qualifiers: Hypertension type: essential hypertension Qualified Code(s): I10 - Essential (primary) hypertension Is this a current diagnosis for this admission?: Yes (9) Sleep apnea, obstructive Is this a current diagnosis for this admission?: Yes (10) CKD stage 4 due to type 2 diabetes mellitus Is this a current diagnosis for this admission?: Yes Physical Exam Vital Signs: Temp Pulse Resp BP Pulse Ox 98.2 F 77 16 118/68 97 07/15/19 11:44 07/15/19 11:44 07/15/19 11:44 07/15/19 11:44 07/15/19 11:44 Intake & Output 07/14/19 07/15/19 07/16/19 06:59 06:59 06:59 Intake Total 1115 1375 575 Output Total 3250 2100 400 Balance -2135 -725 175 Weight 113.8 kg 114.8 kg General appearance: PRESENT: no acute distress, well-developed, well-nourished Head exam: PRESENT: atraumatic, normocephalic Eye exam: PRESENT: conjunctiva pink Mouth exam: PRESENT: moist Respiratory exam: PRESENT: clear to auscultation farooq. ABSENT: rales, rhonchi, wheezes Cardiovascular exam: PRESENT: irregular rhythm. ABSENT: diastolic murmur, rubs, systolic murmur GI/Abdominal exam: PRESENT: normal bowel sounds, soft. ABSENT: distended, guarding, mass, organolmegaly, rebound, tenderness Extremities exam: PRESENT: +1 edema Musculoskeletal exam: PRESENT: ambulatory Neurological exam: PRESENT: alert, awake Psychiatric exam: PRESENT: appropriate affect, normal mood Skin exam: PRESENT: dry, intact, warm Results Laboratory Results: WBC 9.1 10^3/uL (4.0-10.5) 07/13/19 05:02 RBC 4.77 10^6/uL (4.35-5.55) 07/13/19 05:02 Hgb 12.0 g/dL (13.5-17.0) L 07/13/19 05:02 Hct 36.2 % (37.9-51.0) L 07/13/19 05:02 MCV 76 fl (80-97) L 07/13/19 05:02 MCH 25.1 pg (27.0-33.4) L 07/13/19 05:02 MCHC 33.1 g/dL (32.0-36.0) 07/13/19 05:02 RDW 16.8 % (11.5-14.0) H 07/13/19 05:02 Plt Count 383 10^3/uL (150-450) 07/13/19 05:02 Lymph % (Auto) 7.9 % (13-45) L 07/13/19 05:02 [place] % (Auto) 8.2 % (3-13) 07/13/19 05:02 Eos % (Auto) 0.5 % (0-6) 07/13/19 05:02 Baso % (Auto) 1.2 % (0-2) 07/13/19 05:02 Reticulocyte # 0.101 10^6/uL (0.028-0.122) 07/12/19 06:10 Absolute Neuts (auto) 7.5 10^3/uL (1.7-8.2) 07/13/19 05:02 Absolute Lymphs (auto) 0.7 10^3/uL (0.5-4.7) 07/13/19 05:02 Absolute Monos (auto) 0.7 10^3/uL (0.1-1.4) 07/13/19 05:02 Absolute Eos (auto) 0.0 10^3/uL (0.0-0.6) 07/13/19 05:02 Absolute Basos (auto) 0.1 10^3/uL (0.0-0.2) 07/13/19 05:02 Seg Neutrophils % 82.2 % (42-78) H 07/13/19 05:02 Retic Count (auto) 2.19 % (0.66-2.85) 07/12/19 06:10 Carbonic Acid 1.50 mmol/L (1.05-1.35) H 07/11/19 22:23 HCO3/H2CO3 Ratio 16:1 07/11/19 22:23 ABG pH 7.30 (7.35-7.45) L 07/11/19 22:23 ABG pCO2 49.8 mmHg (35-45) H 07/11/19 22:23 ABG pO2 41.8 mmHg (80-100) L 07/11/19 22:23 ABG HCO3 24.2 mmol/L (20-24) H 07/11/19 22:23 ABG Total CO2 25.7 mmol/L (23-27) 07/11/19 22:23 ABG O2 Saturation 72.0 % (94-98) L 07/11/19 22:23 ABG Base Excess -2.6 mmol/L 07/11/19 22:23 FiO2 3L 07/11/19 22:23 Sodium 139.7 mmol/L (137-145) 07/15/19 06:03 Potassium 4.5 mmol/L (3.6-5.0) 07/15/19 06:03 Chloride 105 mmol/L (98-107) 07/15/19 06:03 Carbon Dioxide 23 mmol/L (22-30) 07/15/19 06:03 Anion Gap 12 (5-19) 07/15/19 06:03 BUN 33 mg/dL (7-20) H 07/15/19 06:03 Creatinine 2.98 mg/dL (0.52-1.25) H 07/15/19 06:03 Est GFR ( Amer) 26 (>60) L 07/15/19 06:03 Est GFR (MDRD) Non-Af 22 (>60) L 07/15/19 06:03 Glucose 119 mg/dL (75-110) H 07/15/19 06:03 POC Glucose 119 mg/dL (70-110) H 07/15/19 11:44 Hemoglobin A1c % 10.1 % (4.7-6.0) H 07/12/19 06:10 Calcium 9.3 mg/dL (8.4-10.2) 07/15/19 06:03 Phosphorus 4.9 mg/dL (2.5-4.5) H 07/12/19 06:10 Magnesium 2.3 mg/dL (1.6-2.3) 07/12/19 21:02 Iron 30.7 ug/dL (49-181) L 07/12/19 06:10 TIBC 268 ug/dL (250-450) 07/12/19 06:10 % Saturation 11 % 07/12/19 06:10 Ferritin 127.00 ng/mL (17.9-464.0) 07/12/19 06:10 Total Bilirubin 0.8 mg/dL (0.2-1.3) 07/11/19 22:23 Direct Bilirubin 0.1 mg/dL (0.0-0.4) 07/11/19 22:23 Neonat Total Bilirubin Not Reportable 07/11/19 22:23 Neonat Direct Bilirubin Not Reportable 07/11/19 22:23 Neonat Indirect Bili Not Reportable 07/11/19 22:23 AST 30 U/L (17-59) 07/11/19 22:23 ALT 26 U/L (<50) 07/11/19 22:23 Alkaline Phosphatase 87 U/L (38-126) 07/11/19 22:23 Creatine Kinase 144 U/L (55-170) 07/11/19 22:23 CK-MB (CK-2) 1.98 ng/mL (<4.55) 07/11/19 22:23 Troponin I 0.056 ng/mL 07/12/19 00:44 NT-Pro-B Natriuret Pep 2510 pg/mL (<125) H 07/12/19 00:44 Total Protein 7.2 g/dL (6.3-8.2) 07/11/19 22:23 Albumin 3.7 g/dL (3.5-5.0) 07/11/19 22:23 Vitamin B12 787.0 pg/mL (239-931) 07/12/19 06:10 Vitamin D 25-Hydroxy 32.0 ng/mL (14.7-68.3) 07/12/19 06:10 Folate 6.52 ng/mL (>2.76) 07/12/19 06:10 TSH 1.19 uIU/mL (0.47-4.68) 07/12/19 06:10 PTH Intact 116.8 pg/mL (10.0-65.0) H 07/12/19 13:11 Urine Color YELLOW 07/12/19 00:11 Urine Appearance CLEAR 07/12/19 00:11 Urine pH 6.0 (5.0-9.0) 07/12/19 00:11 Ur Specific Odon 1.009 07/12/19 00:11 Urine Protein 100 mg/dL (NEGATIVE) H 07/12/19 00:11 Urine Glucose (UA) 50 mg/dL (NEGATIVE) H 07/12/19 00:11 Urine Ketones NEGATIVE mg/dL (NEGATIVE) 07/12/19 00:11 Urine Blood NEGATIVE (NEGATIVE) 07/12/19 00:11 Urine Nitrite NEGATIVE (NEGATIVE) 07/12/19 00:11 Urine Bilirubin NEGATIVE (NEGATIVE) 07/12/19 00:11 Urine Urobilinogen NEGATIVE mg/dL (<2.0) 07/12/19 00:11 Ur Leukocyte Esterase NEGATIVE (NEGATIVE) 07/12/19 00:11 Urine WBC (Auto) 5 /HPF 07/12/19 00:11 Urine RBC (Auto) 1 /HPF 07/12/19 00:11 Squamous Epi Cells Auto <1 /HPF 07/12/19 00:11 Urine Mucus (Auto) RARE /LPF 07/12/19 00:11 Urine Creatinine 99.4 mg/dL (22-328) 07/12/19 18:50 Protein/Creatinin Ratio 1.2 mg/mg (0.0-0.2) H 07/12/19 18:50 Urine Total Protein 90.0 mg/dL (Not Estab.) 07/12/19 18:50 Urine Total Protein 115.0 mg/dL (<12) H 07/12/19 18:50 Urine Albumin 61.1 % (.) 07/12/19 18:50 U Lfbxd-6-Owwufcbn 9.5 % (.) 07/12/19 18:50 U Xpnak-0-Sfwudvfs 5.4 % (.) 07/12/19 18:50 U Beta Globulin 9.4 % (.) 07/12/19 18:50 U Gamma Globulin 14.6 % (.) 07/12/19 18:50 U Random M-Greg (%) Not Observed % (Not Observ) 07/12/19 18:50 Urine PEP Note Comment (.) 07/12/19 18:50 Urine Ascorbic Acid NEGATIVE (NEGATIVE) 07/12/19 00:11 Urine Opiates Screen NEGATIVE 07/12/19 00:11 Urine Methadone Screen NEGATIVE 07/12/19 00:11 Ur Barbiturates Screen NEGATIVE 07/12/19 00:11 Ur Phencyclidine Scrn NEGATIVE 07/12/19 00:11 Ur Amphetamines Screen NEGATIVE 07/12/19 00:11 U Benzodiazepines Scrn NEGATIVE 07/12/19 00:11 Urine Cocaine Screen NEGATIVE 07/12/19 00:11 U Marijuana (THC) Screen NEGATIVE 07/12/19 00:11 07/11/19 07/12/1907/12/20 22:23 00:44 00:44 CK-MB (CK-2) 1.98 Troponin I 0.052 0.056 NT-Pro-B Natriuret Pep 2510 H Impressions: Chest X-Ray 07/11/19 22:23 IMPRESSION: Cardiomegaly with interstitial and airspace opacities likely reflecting pulmonary edema. Suspected tiny bibasilar effusions copyright 2011 [employer]- All Rights Reserved Renal Ultrasound 07/12/19 00:00 IMPRESSION: LIMITED STUDY. SUBOPTIMAL VISUALIZATION OF THE KIDNEYS. NO HYDRONEPHROSIS. BILATERAL PLEURAL EFFUSIONS. Vascular Ultrasound 07/14/19 00:00 IMPRESSION: NO DOPPLER EVIDENCE OF HEMODYNAMICALLY SIGNIFICANT RENAL ARTERY STENOSIS. Plan Time Spent: Greater than 30 Minutes Stroke Is this a Stroke Patient?: No Acute Heart Failure - Is this a Heart Failure Patient?: Yes Documentation of LVEF assessment?: Yes LVEF < 40%?: No- if no continue to question #3 3. Anticoagulant therapy for permanect/persistent/paraoxysmal Afib or Aflutter: Yes Follow-up Appointment scheduled within 7 days?: Yes
[2019-07-18 16:12] LABS: ALDOSTERONE RENIN RATIO 2 38.2 (0.0-30.0); RENIN ACTIVITY 0.811 ng/mL/hr (0.167-5.38)
== END 2019-07-15 16:15 | disposition home or self-care (01) | DRG 304 ==
LOC: ER 21:54 → EH 07-12 04:10 → 3S 07-12 04:56
PROVIDERS: ADMIT Internal Medicine; ATTEND Internal Medicine
PROC: 5A09357 Assistance with Respiratory Ventilation, Less than 24 Consecutive Hours, Continuous Positive Airway Pressure (ICD-10-PCS; principal; 2019-07-11)
DX: I16.0 Hypertensive urgency (principal); I50.43 Acute on chronic combined systolic (congestive) and diastolic (congestive) heart failure; N17.9 Acute kidney failure, unspecified; N18.4 Chronic kidney disease, stage 4 (severe); D63.1 Anemia in chronic kidney disease; E11.22 Type 2 diabetes mellitus with diabetic chronic kidney disease; I13.0 Hypertensive heart and chronic kidney disease with heart failure and stage 1 through stage 4 chronic kidney disease, or unspecified chronic kidney disease; I48.0 Paroxysmal atrial fibrillation; G47.33 Obstructive sleep apnea (adult) (pediatric); E66.01 Morbid (severe) obesity due to excess calories; E78.2 Mixed hyperlipidemia; Z91.19 Patient's noncompliance with other medical treatment and regimen; Z79.01 Long term (current) use of anticoagulants; Z79.4 Long term (current) use of insulin; Z82.49 Family history of ischemic heart disease and other diseases of the circulatory system
CPT/HCPCS: 36415; 71045; 76775; 80048; 80053; 80307; 81001; 82088; 82306; 82550; 82553; 82570; 82607; 82728; 82746; 82803; 82962; 83036; 83540; 83550; 83735; 83880; 83970; 84100; 84156; 84166; 84244; 84443; 84484; 85025; 85045; 90686; 93005; 93010; 93306; 93976; 94660; 96374; 96375; 99285; J0360; J1439; J1815; J1940; J2060; J3490; J7050

== ENCOUNTER 2019-09-16 09:24 | Inpatient (IN) | payer BC ==
[2019-09-16 10:00] LABS: HEMATOCRIT 35.9 % (37.9-51.0); HEMOGLOBIN 11.6 g/dL (13.5-17.0); MEAN CORPUSCULAR HEMOGLOBIN 25.4 pg (27.0-33.4); MEAN CORPUSCULAR HGB CONC 32.4 g/dL (32.0-36.0); MEAN CORPUSCULAR VOLUME 78 fl (80-97); PLATELET COUNT 307 10^3/uL (150-450); RED BLOOD COUNT 4.59 10^6/uL (4.35-5.55); WHITE BLOOD COUNT 13.4 10^3/uL (4.0-10.5)
[2019-09-16 10:20] LABS: ALBUMIN 3.7 g/dL (3.5-5.0); ALKALINE PHOSPHATASE 65 U/L (38-126); ANION GAP 10 (5-19); ASPARTATE AMINO TRANSFERASE 24 U/L (17-59); BILIRUBIN,DIRECT 0.1 mg/dL (0.0-0.4); BILIRUBIN,TOTAL 1.9 mg/dL (0.2-1.3); BLOOD UREA NITROGEN 28 mg/dL (7-20); CALCIUM 8.9 mg/dL (8.4-10.2); CARBON DIOXIDE 24 mmol/L (22-30); CHLORIDE 106 mmol/L (98-107); CREATINE KINASE 62 U/L (55-170); GLUCOSE 78 mg/dL (75-110); POTASSIUM 3.5 mmol/L (3.6-5.0); TOTAL PROTEIN 7.2 g/dL (6.3-8.2)
[2019-09-16 10:28] LABS: ARTERIAL BLOOD BASE EXCESS 0 mmol/L; ARTERIAL BLOOD FIO2 75%; ARTERIAL BLOOD H2CO3 1.16 mmol/L (1.05-1.35); ARTERIAL BLOOD HCO3 24.4 mmol/L (20-24); ARTERIAL BLOOD O2 SATURATION 97.5 % (94-98); ARTERIAL BLOOD PCO2 38.6 mmHg (35-45); ARTERIAL BLOOD PH 7.42 (7.35-7.45); ARTERIAL BLOOD PO2 97.1 mmHg (80-100); ARTERIAL BLOOD TOTAL CO2 25.5 mmol/L (23-27)
--- NOTE | 2019-09-16 10:33 | RADIOLOGY REPORT (SQ) ---
EXAM DESCRIPTION: CHEST SINGLE VIEW COMPLETED DATE/TIME: 09/16/2019 10:20 am REASON FOR STUDY: Acute respiratory distress COMPARISON: 07/11/2019 EXAM PARAMETERS: NUMBER OF VIEWS: One view. TECHNIQUE: Single frontal radiographic view of the chest acquired. RADIATION DOSE: NA LIMITATIONS: None. FINDINGS: LUNGS AND PLEURA: Patchy mainly peripheral alveolar airspace disease. No definite effusio ns. MEDIASTINUM AND HILAR STRUCTURES: No masses. Contour normal. HEART AND VASCULAR STRUCTURES: Heart is enlarged. No overt failure. BONES: No acute findings. HARDWARE: None in the chest. OTHER: No other significant finding. IMPRESSION: Patchy alveolar airspace disease most marked in the lung periphery. This could represen t atypical pneumonia or atypical pattern of pulmonary edema. TECHNICAL DOCUMENTATION: JOB ID: [id number] 2010 [employer]- All Rights Reserved Reading location - IP/workstation name: [email or web address]
[2019-09-16 10:42] LABS: TROPONIN I 0.037 ng/mL
[2019-09-16 10:43] LABS: ABSOLUTE LYMPHOCYTES# (MANUAL) 0.4 10^3/uL (0.5-4.7); ABSOLUTE MONOCYTES # (MANUAL) 0.4 10^3/uL (0.1-1.4); BASOPHILS % (MANUAL) 0 % (0-2); EOSINOPHILS % (MANUAL) 2 % (0-6); LYMPHOCYTES % (MANUAL) 3 % (13-45); MONOCYTES % (MANUAL) 3 % (3-13); SEGMENTED NEUTROPHILS % (MAN) 92 % (42-78); TOTAL CELLS COUNTED 100
[2019-09-16 10:47] LABS: ANISOCYTOSIS 2+; BURR CELLS 1+; HYPOCHROMASIA SLIGHT; OVALOCYTES SLIGHT; PLATELET COMMENT ADEQUATE; POIKILOCYTOSIS 1+
[2019-09-16] MEDS ORDERED: HYDRALAZINE HCL INJ/PF 20 MG/1 ML SDV IV ONE ×2 (11:09→14:33)
[2019-09-16] MEDS ORDERED: FUROSEMIDE INJ/PF 100 MG/10 ML SDV IV ONE (11:09)
--- NOTE | 2019-09-16 11:24 | EKG REPORT ---
SEVERITY:- ABNORMAL ECG - SINUS TACHYCARDIA MULTIPLE VENTRICULAR PREMATURE COMPLEXES FIRST DEGREE AV BLOCK ABNORMAL T, CONSIDER ISCHEMIA, LATERAL LEADS : Confirmed by: Darrian Rowan MD 16-Sep-2019 11:23:17
[2019-09-16 11:48] LABS: APPEARANCE,URINE SLIGHTLY-CLOUDY; BILIRUBIN,URINE NEGATIVE (NEGATIVE); COLOR,URINE YELLOW; GLUCOSE, URINE 50 mg/dL (NEGATIVE); KETONES,URINE NEGATIVE (NEGATIVE); LEUKOCYTE ESTERASE,URINE NEGATIVE (NEGATIVE); NITRITE,URINE NEGATIVE (NEGATIVE); PROTEIN,URINE >=500 mg/dL (NEGATIVE); URINE SPECIFIC GRAVITY 1.014; UROBILINOGEN,URINE NEGATIVE mg/dL (<2.0)
[2019-09-16] MEDS ORDERED: ACETAMINOPHEN 325 MG TABLET PO PRN (12:02)
[2019-09-16] MEDS ORDERED: ONDANSETRON HCL INJ/PF 4 MG/2 ML SDV IV PRN (12:02)
[2019-09-16] MEDS ORDERED: DEXTROSE 50%-WATER 25 GM/50 ML DISP.SYRIN IV PRN ×2 (12:10)
[2019-09-16] MEDS ORDERED: GLUCAGON,HUMAN RECOMB 1 MG INJ IM PRN (12:10)
[2019-09-16] MEDS ORDERED: DEXTROSE 40% GEL 15 GM TUBE PO PRN ×2 (12:10)
[2019-09-16] MEDS ORDERED: HYDRALAZINE HCL INJ/PF 20 MG/1 ML SDV IV PRN (12:13)
--- NOTE | 2019-09-16 12:27 | PDOC H&P ---
History of Present Illness Admission Date/PCP: ERMA DESAI Patient complains of: Shortness of breath History of Present Illness: CATHY HALL is a 59 year old male with history of chronic diastolic heart failure, morbid obesity, hypertension, diabetes mellitus, hyperlipidemia, CKD came to the emergency room with complaints of shortness of breath for the last 3 days. Denies any associated cough fever dizziness headaches nausea vomiting diarrhea. Denies any new skin rashes. Complaining of increasing weight gain. In the ER chest x-ray was done indicating of questionable atypical pneumonia versus pulmonary edema. BNP is elevated at 7220. Medical consult was requested for admission. Patient is initially hypoxic when the EMS picked him up pulse ox is in the 80s at the time of my examination he still on BiPAP. He lives alone with a girlfriend no recent travel history he is not in contact with anybody that came from out of state to visit him. Risk for coronavirus is extremely low in my opinion. Past Medical History Cardiac Medical History: Reports: Atrial Fibrillation, Congestive Heart Failure, Hyperlipidema, Hypertension Pulmonary Medical History: Reports: Sleep Apnea Denies: Tuberculosis Endocrine Medical History: Reports: Diabetes Mellitus Type 1, Diabetes Mellitus Type 2 Psychiatric Medical History: Denies: Depression Past Surgical History Past Surgical History: Denies: Appendectomy, Cholecystectomy, Coronary Artery Bypass Graft, Gastric Bypass Surgery, Herniorrhaphy, Internal Defibrillator, Pacemaker, Tonsillectomy, Valve Replacement, Vascular Surgery Social History Information Source: Patient Smoking Status: Unknown if Ever Smoked Electronic Cigarette use?: No Frequency of Alcohol Use: Social Hx Recreational Drug Use: No Drugs: None Hx Prescription Drug Abuse: No - Advance Directive Resuscitation Status: Full Code Family History Family History: None, Reviewed & Not Pertinent Parental Family History Reviewed: Yes - Family history of diabetes and hypertension Children Family History Reviewed: Yes Sibling(s) Family History Reviewed.: Yes Medication/Allergy Home Medications: Apixaban [Eliquis 2.5 mg Tablet] 2.5 mg PO BID #60 tablet 04/23/18 Atorvastatin Calcium [Lipitor 20 mg Tablet] 20 mg PO QHS #30 tablet 04/23/18 Ferrous Sulfate [Feosol 325 mg Tablet] 325 mg PO BIDPCBS #60 tablet 04/23/18 Carvedilol [Coreg 25 mg Tablet] 2 tab PO Q12 #60 tab 07/15/19 Clonidine [Catapres-Tts 2 (0.2 mg/24 Hr) Transderm Ptch] 1 each TD Tu@10 #30 patch.tdwk 07/15/19 Furosemide [Lasix 40 mg Tablet] 40 mg PO BID #60 tablet 07/15/19 Glipizide [Glucotrol 5 mg Tablet] 2.5 mg PO BIDACBS #30 tablet 07/15/19 Hydralazine HCl 100 mg PO Q8 1 Days #90 tablet 07/15/19 Insulin Glargine,Hum.rec.anlog [Lantus Insulin 100 Unit/mL Insulin Pen] 10 unit SUBCUT QHS #10 ml 07/15/19 Isosorbide Mononitrate [Imdur 60 mg Tablet.er] 60 mg PO DAILY #30 tab.er.24h 07/15/19 Nifedipine [Nifedipine ER] 90 mg PO DAILY #30 tablet.er 07/15/19 Allergies/Adverse Reactions: No Known Allergies Allergy (Verified 04/20/18 11:04) Review of Systems Constitutional: ABSENT: fatigue, fever(s), headache(s), weakness Eyes: ABSENT: visual disturbances Ears: ABSENT: hearing changes Nose, Mouth, and Throat: ABSENT: sore throat Cardiovascular: PRESENT: dyspnea on exertion, orthropnea Respiratory: PRESENT: dyspnea Gastrointestinal: ABSENT: abdominal pain, constipation, diarrhea, hematemesis, hematochezia, nausea, vomiting Genitourinary: ABSENT: dysuria, hematuria Musculoskeletal: ABSENT: joint swelling Neurological: ABSENT: abnormal gait, abnormal speech, confusion, dizziness, focal weakness, syncope Psychiatric: ABSENT: anxiety, depression, homidical ideation, suicidal ideation Endocrine: ABSENT: cold intolerance, heat intolerance, polydipsia, polyuria Hematologic/Lymphatic: ABSENT: easy bleeding, easy bruising Physical Exam Vital Signs: Temp Pulse Resp BP Pulse Ox 21 H 197/120 H 100 09/16/19 11:21 09/16/19 11:21 09/16/19 11:21 General appearance: PRESENT: obese, other - Patient is in moderate distress on BiPAP at the time of my examination. Head exam: PRESENT: atraumatic Eye exam: PRESENT: PERRLA Ear exam: PRESENT: normal external ear exam Mouth exam: PRESENT: moist, tongue midline Neck exam: PRESENT: JVD. ABSENT: carotid bruit, lymphadenopathy, thyromegaly Respiratory exam: PRESENT: crackles, decreased breath sounds Cardiovascular exam: PRESENT: tachycardia Vascular exam: PRESENT: normal capillary refill GI/Abdominal exam: PRESENT: normal bowel sounds, soft. ABSENT: distended, guar ding, mass, organolmegaly, rebound, tenderness Rectal exam: PRESENT: deferred Extremities exam: PRESENT: +2 edema Neurological exam: PRESENT: alert, awake, oriented to person, oriented to place, oriented to time, oriented to situation, CN II-XII grossly intact. ABSENT: motor sensory deficit Psychiatric exam: PRESENT: appropriate affect, normal mood. ABSENT: homicidal ideation, suicidal ideation Results Laboratory Results: 09/16/19 09:35 09/16/19 09:35 09/16/19 09/16/19 09/16/19 09:35 09:35 09:56 WBC 13.4 H RBC 4.59 Hgb 11.6 L Hct 35.9 L MCV 78 L MCH 25.4 L MCHC 32.4 RDW 18.0 H Plt Count 307 Seg Neutrophils % Not Reportable Carbonic Acid 1.16 HCO3/H2CO3 Ratio 21:1 ABG pH 7.42 ABG pCO2 38.6 ABG pO2 97.1 ABG HCO3 24.4 H ABG O2 Saturation 97.5 ABG Base Excess 0 FiO2 75% Sodium 140.3 Potassium 3.5 L Chloride 106 Carbon Dioxide 24 Anion Gap 10 BUN 28 H Creatinine 2.06 H Est GFR ( Amer) 40 L Glucose 78 Calcium 8.9 Total Bilirubin 1.9 H AST 24 Alkaline Phosphatase 65 Total Protein 7.2 Albumin 3.7 Urine Color Urine Appearance Urine pH Ur Specific [place] Urine Protein Urine Glucose (UA) Urine Ketones Urine Blood Urine Nitrite Ur Leukocyte Esterase Urine WBC (Auto) Urine RBC (Auto) 09/16/19 11:00 WBC RBC Hgb Hct MCV MCH MCHC RDW Plt Count Seg Neutrophils % Carbonic Acid HCO3/H2CO3 Ratio ABG pH ABG pCO2 ABG pO2 ABG HCO3 ABG O2 Saturation ABG Base Excess FiO2 Sodium Potassium Chloride Carbon Dioxide Anion Gap BUN Creatinine Est GFR ( Amer) Glucose Calcium Total Bilirubin AST Alkaline Phosphatase Total Protein Albumin Urine Color YELLOW Urine Appearance SLIGHTLY-CLOUDY Urine pH 7.0 Ur Specific [place] 1.014 Urine Protein >=500 H Urine Glucose (UA) 50 H Urine Ketones NEGATIVE Urine Blood NEGATIVE Urine Nitrite NEGATIVE Ur Leukocyte Esterase NEGATIVE Urine WBC (Auto) 4 Urine RBC (Auto) 3 09/16/19 09/16/19 09:35 09:35 Creatine Kinase 62 Troponin I 0.037 NT-Pro-B Natriuret Pep 7220 H Impressions: Chest X-Ray 09/16/19 09:42 IMPRESSION: Patchy alveolar airspace disease most marked in the lung periphery. This could represent atypical pneumonia or atypical pattern of pulmonary edema. Assessment and Plan - Diagnosis (1) Acute on chronic combined systolic and diastolic CHF (congestive heart failure) Is this a current diagnosis for this admission?: Yes Plan: 09/16/2019 patient is going to be admitted to [facility] as an inpatient with a diagnosis of acute on chronic combined systolic and diastolic heart failure. Started on Lasix 40 mg IV twice daily, to continue BiPAP on as-needed basis, fluid restriction 1500 cc/day is initiated. Patient is already onaphixabin started on GI prophylaxis. Latest echocardiogram was done in June of this year indicated above combined systolic and diastolic heart failure. (2) Atrial fibrillation with RVR Is this a current diagnosis for this admission?: No Plan: 09/16/2019-patient has history of A. fib at the time of my examination in sinus rhythm heart rate is around 110. To continue anticoagulation apixaban. (3) Chronic kidney disease (CKD) Qualifiers: Chronic kidney disease stage: unspecified stage Qualified Code(s): N18.9 - Chronic kidney disease, unspecified Is this a current diagnosis for this admission?: No Plan: 09/16/2019-serum creatinine today is 2.06 much better compared to previous creatinines. Plan is to closely monitor the kidney function. (4) Diabetes Is this a current diagnosis for this admission?: No Plan: 09/16/2019-patient has history of type 2 diabetes mellitus started on insulin sliding scale before meals and at bedtime to restart home medications. Latest blood sugar is 78. Dietary advice was provided. (5) Pneumonia Is this a current diagnosis for this admission?: Yes Plan: 09/16/2019-chest x-ray suggestive of atypical pneumonia. WBC count is normal no history of fever. Blood cultures are requested sputum culture is requested started on IV Rocephin 1 g daily. To get more information CT chest without contrast is requested. (6) Obesity Qualifiers: Obesity type: unspecified obesity type Qualified Code(s): E66.9 - Obesity, unspecified Is this a current diagnosis for this admission?: No Plan: 09/16/2019-patient BMI is more than 40. Diet exercise weight loss lifestyle modifications discussed with the patient. (7) Hypertension Qualifiers: Hypertension type: essential hypertension Qualified Code(s): I10 - Essential (primary) hypertension Is this a current diagnosis for this admission?: No Plan: 09/16/2019-patient has history of chronic essential hypertension blood pressure in the ER is 197/120. Plan is to restart his home medications and a started on Lasix 40 mg IV twice a day, IV hydralazine 10 mg every 6 hours PRN for systolic blood pressure more than 160.
[2019-09-16] MEDS: CEFTRIAXONE 1 GM/D5W RTU 1 GM/50 ML RTUPB IV SCH (13:29)
[2019-09-16] MEDS ORDERED: IPRATROPIUM/ALBUTEROL 0.5-2.5 MG/3 ML AMPUL NEB ONE (13:30)
[2019-09-16 13:52] LABS: A TYPE INFLUENZA AG NEGATIVE (NEGATIVE)
[2019-09-16 13:53] LABS: B INFLUENZA AG NEGATIVE (NEGATIVE)
[2019-09-16] MEDS ORDERED: METOPROLOL TARTRATE PF/INJ 5 MG/5 ML SDV IV ONE (14:30)
[2019-09-16] MEDS ORDERED: NIFEDIPINE 10 MG CAPSULE PO SCH (14:45)
[2019-09-16 14:51] LABS: URINE AMPHETAMINES SCREEN NEGATIVE; URINE BARBITURATES SCREEN NEGATIVE; URINE BENZODIAZEPINES SCREEN NEGATIVE; URINE COCAINE SCREEN NEGATIVE; URINE MARIJUANA (THC) SCREEN NEGATIVE; URINE METHADONE SCREEN NEGATIVE; URINE PHENCYCLIDINE SCREEN NEGATIVE
--- NOTE | 2019-09-16 14:54 | ER Document Report ---
Entered by MAGDI VÁZQUEZ SCRIBE 09/16/19 0941 Acting as scribe for:FREDY JOEL MD ED General - General Stated Complaint: DIFFICULTY BREATHING Time Seen by Provider: 09/16/19 09:39 Primary Care Provider: ERMA DESAI MD [Primary Care Provider] - Follow up as needed Mode of Arrival: Medic Information source: Patient, Emergency Med Personnel, [facility] Records Notes: This 59-year-old male patient with past medical history atrial fibrillation, congestive heart failure, type 2 diabetes, hypertension, chronic renal failure, hyperlipidemia, on Eliquis. He reports feeling fine yesterday. He states he woke up this morning very short of breath. EMS reports patient having oxygen saturations as low as 80% during a breathing treatment using high flow oxygen. Patient does report that he has had increased swelling to his lower extremities for last few days. Review of records shows his primary provider put him on Augmentin and prednisone on 09/06/2019. He was admitted here in late June of this year for uncontrolled hypertension and congestive heart failure. The patient arrived on CPAP receiving breathing treatment. He was switched to BiPAP on arrival to the emergency room. Initial settings were FiO2 75%, inspiratory pressure 16, expiratory pressure 6, IMV 8. TRAVEL OUTSIDE OF THE [place] IN LAST 30 DAYS: No - Related Data Allergies/Adverse Reactions: No Known Allergies Allergy (Verified 04/20/18 11:04) Past Medical History - General Information source: Patient, Emergency Med Personnel, [facility] Records - Social History Smoking Status: Never Smoker Cigarette use (# per day): No Chew tobacco use (# tins/day): No Smoking Education Provided: No Frequency of alcohol use: None Drug Abuse: None Occupation: Retired Lives with: Spouse/Significant other Family History: None, Reviewed & Not Pertinent - Past Medical History Cardiac Medical History: Reports: Hx Atrial Fibrillation, Hx Congestive Heart Failure, Hx Hypercholesterolemia, Hx Hypertension Pulmonary Medical History: Reports: Hx Sleep Apnea Endocrine Medical History: Reports: Hx Diabetes Mellitus Type 1, Hx Diabetes Mellitus Type 2 - Immunizations Hx Diphtheria, Pertussis, Tetanus Vaccination: Yes Review of Systems - Review of Systems Constitutional: No symptoms reported EENT: No symptoms reported Cardiovascular: Edema Respiratory: See HPI Gastrointestinal: No symptoms reported Genitourinary: No symptoms reported Musculoskeletal: No symptoms reported Skin: No symptoms reported Hematologic/Lymphatic: No symptoms reported Neurological/Psychological: No symptoms reported Physical Exam - Vital signs Vitals: Resp Pulse Ox 29 H 89 L 09/16/19 09:37 09/16/19 09:37 Interpretation: Hypertensive, Hypoxic, Tachypneic - General General appearance: Alert, Anxious In distress: Moderate - HEENT Head: Normocephalic, Atraumatic Eyes: Normal Pupils: PERRL - Respiratory Respiratory status: Tachypnea Breath sounds: Nonproductive cough, Rales. No: Rhonchi, Wheezing - Cardiovascular Rhythm: Regular Heart sounds: Normal auscultation Murmur: No - Abdominal Inspection: Obese Bowel sounds: Normal Tenderness: Nontender - Back Back: Normal - Extremities General upper extremity: Normal inspection General lower extremity: Edema - Pitting edema to lower extremities, patient is wearing compression hose. - Neurological Neuro grossly intact: Yes - Psychological Associated symptoms: Normal affect, Normal mood - Skin Skin Temperature: Warm Skin Moisture: Dry Skin Color: Normal Course - Vital Signs Vital signs: Temp Pulse Resp BP Pulse Ox 98.9 F 21 H 210/113 H 97 09/16/19 13:05 09/16/19 13:31 09/16/19 13:31 09/16/19 13:31 - Laboratory Result Diagrams: 09/16/19 09:35 09/16/19 09:35 Laboratory results interpreted by me: 09/16/19 09/16/19 09/16/19 09:35 09:35 09:35 WBC 13.4 H Hgb 11.6 L Hct 35.9 L MCV 78 L MCH 25.4 L RDW 18.0 H Seg Neuts % (Manual) 92 H Lymphocytes % (Manual) 3 L Abs Neuts (Manual) 12.3 H Abs Lymphs (Manual) 0.4 L ABG HCO3 Potassium 3.5 L BUN 28 H Creatinine 2.06 H Est GFR ( Amer) 40 L Est GFR (MDRD) Non-Af 33 L Total Bilirubin 1.9 H NT-Pro-B Natriuret Pep 7220 H Urine Protein Urine Glucose (UA) 09/16/19 09/16/19 09:56 11:00 WBC Hgb Hct MCV MCH RDW Seg Neuts % (Manual) Lymphocytes % (Manual) Abs Neuts (Manual) Abs Lymphs (Manual) ABG HCO3 24.4 H Potassium BUN Creatinine Est GFR ( Amer) Est GFR (MDRD) Non-Af Total Bilirubin NT-Pro-B Natriuret Pep Urine Protein >=500 H Urine Glucose (UA) 50 H - Diagnostic Test Radiology reviewed: Image reviewed, Reports reviewed - Patchy alveolar airspace disease most marked in the lung periphery. Could represent atypical pneumonia or atypical pattern of pulmonary edema. - EKG Interpretation by Me EKG shows normal: [place], Intervals, QRS Complexes. abnormal: ST-T Waves - Lateral T wave abnormalities Rate: Normal - 95 Rhythm: A.Fib, PVC's Heart block present: 1st Degree When compared to previous EKG there are: No significant change - Consults Dr. Hernandez Time consulted: 11:23 Consulted provider: will come to ER Critical Care Note - Critical Care Note Total time excluding time spent on procedures (mins): 45 Discharge - Discharge Clinical Impression: Acute on chronic combined systolic and diastolic CHF (congestive heart failure), CKD stage 4 due to type 2 diabetes mellitus, Respiratory distress, Hypoxemia, Severe hypertension, Chronic atrial fibrillation Pulmonary edema Qualifiers: Chronicity: acute Qualified Code(s): J81.0 - Acute pulmonary edema Condition: Fair Disposition: ADMITTED INPATIENT Admitting Provider: Mary (Hospitalist) Unit Admitted: IMCU Referrals: ERMA DESAI MD [Primary Care Provider] - Follow up as needed I personally performed the services described in the documentation, reviewed and edited the documentation which was dictated to the scribe in my presence, and it accurately records my words and actions.
[2019-09-16] MEDS: NIFEDIPINE 30 MG TAB.ER.24 PO SCH (15:09)
[2019-09-16] MEDS: CARVEDILOL 12.5 MG TABLET PO SCH ×2 (17:31→22:38)
[2019-09-16] MEDS: INSULIN REG, HUMAN 100 UNIT/ML 3 ML VIAL (PYX) SUBCUT SCH (17:53)
[2019-09-16] MEDS ORDERED: FUROSEMIDE INJ/PF 40 MG/4 ML SDV IV SCH (18:00)
[2019-09-16] MEDS: METOPROLOL TARTRATE PF/INJ 5 MG/5 ML SDV IV PRN (19:09)
[2019-09-16] MEDS ORDERED: DILTIAZEM HCL INJ 25 MG/5 ML VIAL ONE (19:28)
[2019-09-16] MEDS: HYDRALAZINE HCL 50 MG TABLET PO SCH (22:38)
[2019-09-17] MEDS: METOPROLOL TARTRATE PF/INJ 5 MG/5 ML SDV IV PRN (02:21)
[2019-09-17 03:44] LABS: HEMATOCRIT 34.5 % (37.9-51.0); HEMOGLOBIN 11.4 g/dL (13.5-17.0); MEAN CORPUSCULAR HEMOGLOBIN 25.5 pg (27.0-33.4); MEAN CORPUSCULAR HGB CONC 33.1 g/dL (32.0-36.0); MEAN CORPUSCULAR VOLUME 77 fl (80-97); PLATELET COUNT 266 10^3/uL (150-450); RED BLOOD COUNT 4.49 10^6/uL (4.35-5.55); RED CELL DISTRIBUTION WIDTH 18.2 % (11.5-14.0); WHITE BLOOD COUNT 9.6 10^3/uL (4.0-10.5)
[2019-09-17 04:05] LABS: ALBUMIN 3.5 g/dL (3.5-5.0); ALKALINE PHOSPHATASE 61 U/L (38-126); ANION GAP 10 (5-19); ASPARTATE AMINO TRANSFERASE 20 U/L (17-59); BILIRUBIN,DIRECT 0.2 mg/dL (0.0-0.4); BILIRUBIN,TOTAL 1.5 mg/dL (0.2-1.3); BLOOD UREA NITROGEN 36 mg/dL (7-20); CALCIUM 8.8 mg/dL (8.4-10.2); CARBON DIOXIDE 24 mmol/L (22-30); CHLORIDE 106 mmol/L (98-107); CHOLESTEROL 143.25 mg/dL (0-200); GLUCOSE 194 mg/dL (75-110); POTASSIUM 3.7 mmol/L (3.6-5.0); TOTAL PROTEIN 6.6 g/dL (6.3-8.2); TRIGLYCERIDES 45 mg/dL (<150)
[2019-09-17 04:13] LABS: ABSOLUTE LYMPHOCYTES# (MANUAL) 0.6 10^3/uL (0.5-4.7); BASOPHILS % (MANUAL) 0 % (0-2); EOSINOPHILS % (MANUAL) 0 % (0-6); LYMPHOCYTES % (MANUAL) 6 % (13-45); MONOCYTES % (MANUAL) 10 % (3-13); SEGMENTED NEUTROPHILS % (MAN) 84 % (42-78); TOTAL CELLS COUNTED 100
[2019-09-17 04:14] LABS: ANISOCYTOSIS 1+; BURR CELLS SLIGHT; OVALOCYTES 1+; POIKILOCYTOSIS 1+; TOXIC GRANULATION 1+; TOXIC VACUOLATION PRESENT
[2019-09-17 04:15] LABS: PLATELET COMMENT ADEQUATE; TEAR DROP CELLS 1+
[2019-09-17 04:16] LABS: DIRECT LDL 83 mg/dL (<100)
[2019-09-17] MEDS: INSULIN REG, HUMAN 100 UNIT/ML 3 ML VIAL (PYX) SUBCUT SCH ×5 (05:15→21:37)
[2019-09-17 05:35] LABS: ARTERIAL BLOOD BASE EXCESS -0.1 mmol/L; ARTERIAL BLOOD FIO2 32%; ARTERIAL BLOOD HCO3 23.1 mmol/L (20-24); ARTERIAL BLOOD O2 SATURATION 89.2 % (94-98); ARTERIAL BLOOD PCO2 33.2 mmHg (35-45); ARTERIAL BLOOD PH 7.46 (7.35-7.45); ARTERIAL BLOOD PO2 52.3 mmHg (80-100); ARTERIAL BLOOD TOTAL CO2 24.2 mmol/L (23-27)
[2019-09-17] MEDS: PANTOPRAZOLE SODIUM 40 MG TABLET.DR PO SCH (05:35)
[2019-09-17] MEDS: HYDRALAZINE HCL 50 MG TABLET PO SCH ×3 (05:35→21:33)
--- NOTE | 2019-09-17 09:05 | PDOC PROGRESS REPORT ---
Subjective Progress Note for:: 09/17/19 Subjective:: 59 year old male with history of chronic diastolic heart failure, morbid obesity, hypertension, diabetes mellitus, hyperlipidemia, CKD came to the emergency room with complaints of shortness of breath for the last 3 days. Denies any associated cough fever dizziness headaches nausea vomiting diarrhea. Denies any new skin rashes. Complaining of increasing weight gain. In the ER chest x-ray was done indicating of questionable atypical pneumonia versus pulmonary edema. BNP is elevated at 7220. Medical consult was requested for admission. Patient is initially hypoxic when the EMS picked him up pulse ox is in the 80s at the time of my examination he still on BiPAP. He lives alone with a girlfriend no recent travel history he is not in contact with anybody that came from out of state to visit him. Risk for coronavirus is extremely low in my opinion. 09/17/2019-patient doing much better presently on 4 L of oxygen via nasal cannula pulse ox is 97%. Comfortable in the bed communicating well. He denies any problems. No acute events in the last 24 hours. Blood pressures are improved heart rate is relatively controlled he is still in A. fib. Reason For Visit: DYSPNEA Physical Exam Vital Signs: Temp Pulse Resp BP Pulse Ox 98.2 F 97 18 163/88 H 99 09/17/19 07:17 09/17/19 07:17 09/17/19 07:17 09/17/19 07:17 09/17/19 07:17 Intake & Output 09/16/19 09/17/19 09/18/19 06:59 06:59 06:59 Intake Total 50 Output Total 2575 Balance -2525 Weight 116.3 kg General appearance: PRESENT: no acute distress, mild distress, obese Head exam: PRESENT: atraumatic Eye exam: PRESENT: PERRLA Ear exam: PRESENT: normal external ear exam Mouth exam: PRESENT: neck supple Neck exam: PRESENT: JVD Respiratory exam: PRESENT: crackles, decreased breath sounds Cardiovascular exam: PRESENT: irregular rhythm, tachycardia GI/Abdominal exam: PRESENT: normal bowel sounds, soft. ABSENT: distended, guarding, mass, organolmegaly, rebound, tenderness Rectal exam: PRESENT: deferred Extremities exam: PRESENT: +1 edema Neurological exam: PRESENT: alert Psychiatric exam: PRESENT: appropriate affect, normal mood. ABSENT: homicidal ideation, suicidal ideation Results Laboratory Results: 09/17/19 03:34 09/17/19 03:34 09/16/19 09/16/19 09/16/19 09:35 09:35 09:56 WBC 13.4 H RBC 4.59 Hgb 11.6 L Hct 35.9 L MCV 78 L MCH 25.4 L MCHC 32.4 RDW 18.0 H Plt Count 307 Seg Neutrophils % Not Reportable Carbonic Acid 1.16 HCO3/H2CO3 Ratio 21:1 ABG pH 7.42 ABG pCO2 38.6 ABG pO2 97.1 ABG HCO3 24.4 H ABG O2 Saturation 97.5 ABG Base Excess 0 FiO2 75% Sodium 140.3 Potassium 3.5 L Chloride 106 Carbon Dioxide 24 Anion Gap 10 BUN 28 H Creatinine 2.06 H Est GFR ( Amer) 40 L Glucose 78 Calcium 8.9 Magnesium Total Bilirubin 1.9 H AST 24 Alkaline Phosphatase 65 Total Protein 7.2 Albumin 3.7 Triglycerides Cholesterol LDL Cholesterol Direct VLDL Cholesterol HDL Cholesterol TSH Urine Color Urine Appearance Urine pH Ur Specific [place] Urine Protein Urine Glucose (UA) Urine Ketones Urine Blood Urine Nitrite Ur Leukocyte Esterase Urine WBC (Auto) Urine RBC (Auto) 09/16/19 09/17/19 09/17/19 11:00 03:34 03:34 WBC 9.6 RBC 4.49 Hgb 11.4 L Hct 34.5 L MCV 77 L MCH 25.5 L MCHC 33.1 RDW 18.2 H Plt Count 266 Seg Neutrophils % Not Reportable Carbonic Acid HCO3/H2CO3 Ratio ABG pH ABG pCO2 ABG pO2 ABG HCO3 ABG O2 Saturation ABG Base Excess FiO2 Sodium 140.0 Potassium 3.7 Chloride 106 Carbon Dioxide 24 Anion Gap 10 BUN 36 H Creatinine 2.26 H Est GFR ( Amer) 36 L Glucose 194 H Calcium 8.8 Magnesium 2.5 H Total Bilirubin 1.5 H AST 20 Alkaline Phosphatase 61 Total Protein 6.6 Albumin 3.5 Triglycerides 45 Cholesterol 143.25 LDL Cholesterol Direct 83 VLDL Cholesterol 9.0 L HDL Cholesterol 53 TSH Urine Color YELLOW Urine Appearance SLIGHTLY-CLOUDY Urine pH 7.0 Ur Specific [place] 1.014 Urine Protein >=500 H Urine Glucose (UA) 50 H Urine Ketones NEGATIVE Urine Blood NEGATIVE Urine Nitrite NEGATIVE Ur Leukocyte Esterase NEGATIVE Urine WBC (Auto) 4 Urine RBC (Auto) 3 09/17/19 09/17/19 03:34 05:12 WBC RBC Hgb Hct MCV MCH MCHC RDW Plt Count Seg Neutrophils % Carbonic Acid 1.00 L HCO3/H2CO3 Ratio 23:1 ABG pH 7.46 H ABG pCO2 33.2 L ABG pO2 52.3 L ABG HCO3 23.1 ABG O2 Saturation 89.2 L ABG Base Excess -0.1 FiO2 32% Sodium Potassium Chloride Carbon Dioxide Anion Gap BUN Creatinine Est GFR ( Amer) Glucose Calcium Magnesium Total Bilirubin AST Alkaline Phosphatase Total Protein Albumin Triglycerides Cholesterol LDL Cholesterol Direct VLDL Cholesterol HDL Cholesterol TSH 0.36 L Urine Color Urine Appearance Urine pH Ur Specific [place] Urine Protein Urine Glucose (UA) Urine Ketones Urine Blood Urine Nitrite Ur Leukocyte Esterase Urine WBC (Auto) Urine RBC (Auto) 09/16/19 09/16/19 09/16/19 09:35 09:35 15:20 Creatine Kinase 62 Troponin I 0.037 0.066 NT-Pro-B Natriuret Pep 7220 H 09/16/19 09/17/19 09/17/19 21:20 03:34 03:34 Creatine Kinase Troponin I 0.078 0.074 NT-Pro-B Natriuret Pep 13713 H Impressions: Chest X-Ray 09/16/19 09:42 IMPRESSION: Patchy alveolar airspace disease most marked in the lung periphery. This could represent atypical pneumonia or atypical pattern of pulmonary edema. Assessment and Plan - Diagnosis (1) Acute on chronic combined systolic and diastolic CHF (congestive heart failure) Is this a current diagnosis for this admission?: Yes Plan: 09/16/2019 patient is going to be admitted to [facility] as an inpatient with a diagnosis of acute on chronic combined systolic and diastolic heart failure. Started on Lasix 40 mg IV twice daily, to continue BiPAP on as-needed basis, fluid restriction 1500 cc/day is initiated. Patient is already onaphixabin started on GI prophylaxis. Latest echocardiogram was done in June of this year indicated above combined systolic and diastolic heart failure. 09/17/2019-patient is doing much better. Admitted with acute on chronic combined systolic and diastolic heart failure chest x-ray suggestive of pulmonary edema. Presently on Lasix 40 mg IV twice daily and also on 1500 cc fluid restriction. BUN actually went up from 7700-13,200 today. To increase IV Lasix to 3 times a day. Discussed the fluid restriction with the patient. He understood and agreed to stick to 1500 cc fluid restriction per day. (2) Atrial fibrillation with RVR Is this a current diagnosis for this admission?: No Plan: 09/16/2019-patient has history of A. fib at the time of my examination in sinus rhythm heart rate is around 110. To continue anticoagulation apixaban. 09/17/19-patient has history of A. fib on apixaban at home. For rate control he is on Coreg 25 mg p.o. twice daily which was reinitiated. Heart rate this morning is around 100. (3) Chronic kidney disease (CKD) Qualifiers: Chronic kidney disease stage: unspecified stage Qualified Code(s): N18.9 - Chronic kidney disease, unspecified Is this a current diagnosis for this admission?: No Plan: 09/16/2019-serum creatinine today is 2.06 much better compared to previous c reatinines. Plan is to closely monitor the kidney function. 09/17/2019-serum creatinine today is 2.26. Patient has a history of stage III kidney disease. (4) Diabetes Is this a current diagnosis for this admission?: No Plan: 09/16/2019-patient has history of type 2 diabetes mellitus started on insulin sliding scale before meals and at bedtime to restart home medications. Latest blood sugar is 78. Dietary advice was provided. 09/17/2019-blood sugar this morning is 192. Plan is to continue insulin sliding scale and he is on Lantus 10 units at night. Plan is to continue the medication during the hospital stay. hemoGlobin A1c 6.6. (5) Pneumonia Is this a current diagnosis for this admission?: Yes Plan: 09/16/2019-chest x-ray suggestive of atypical pneumonia. WBC count is normal no history of fever. Blood cultures are requested sputum culture is requested started on IV Rocephin 1 g daily. To get more information CT chest without contrast is requested. 09/17/2019-chest x-ray suggestive of atypical pneumonitis. CT chest without contrast was requested and patient unable to lay flat CT chest is postponed for tomorrow. (6) Obesity Qualifiers: Obesity type: unspecified obesity type Qualified Code(s): E66.9 - Obesity, unspecified Is this a current diagnosis for this admission?: No (7) Hypertension Qualifiers: Hypertension type: essential hypertension Qualified Code(s): I10 - Essential (primary) hypertension Is this a current diagnosis for this admission?: No Plan: 09/16/2019-patient has history of chronic essential hypertension blood pressure in the ER is 197/120. Plan is to restart his home medications and a started on Lasix 40 mg IV twice a day, IV hydralazine 10 mg every 6 hours PRN for systolic blood pressure more than 160. 09/17/2019-latest blood pressure is 158/84. To continue Lasix 40 mg IV 3 times a day, and to continue IV hydralazine 10 mg every 6 hours as needed. To start the patient on losartan from today.
[2019-09-17] MEDS ORDERED: NIFEDIPINE 10 MG CAPSULE PO SCH (10:00)
[2019-09-17] MEDS: FUROSEMIDE INJ/PF 40 MG/4 ML SDV IV SCH ×3 (13:05→18:21)
[2019-09-17] MEDS: CEFTRIAXONE 1 GM/D5W RTU 1 GM/50 ML RTUPB IV SCH (13:06)
[2019-09-17] MEDS: NIFEDIPINE 30 MG TAB.ER.24 PO SCH (13:07)
[2019-09-17] MEDS: CARVEDILOL 12.5 MG TABLET PO SCH ×2 (13:07→21:34)
[2019-09-17] MEDS: LOSARTAN POTASSIUM 25 MG TABLET PO SCH (13:08)
[2019-09-17] MEDS: APIXABAN 2.5 MG TABLET PO SCH ×2 (13:08→18:21)
[2019-09-17] MEDS: GLIPIZIDE 5 MG TABLET PO SCH (16:18)
[2019-09-17] MEDS ORDERED: LORAZEPAM INJ 2 MG/1 ML VIAL IV ONE (16:54)
--- NOTE | 2019-09-17 19:15 | RADIOLOGY REPORT (SQ) ---
EXAM DESCRIPTION: CT CHEST WITHOUT IMAGES COMPLETED DATE/TIME: 09/17/2019 6:56 pm REASON FOR STUDY: dyspnea COMPARISON: None. TECHNIQUE: CT scan performed of the chest without intravenous contrast. Images reviewed with lung, soft tissue and bone windows. Reconstructed coronal and sagittal MPR images reviewed. All images st ored on PACS. All CT scanners at this facility use dose modulation, iterative reconstruction, and/or weight based d osing when appropriate to reduce radiation dose to as low as reasonably achievable (ALARA). [facility]: Dose Right [facility]: CareDose [facility]: Dose Right [facility]: Teradose 4D [facility]: [employer] RADIATION DOSE: CT Rad equipment meets quality standard of care and radiation dose reduction techniq ues were employed. CTDIvol: 19.8 mGy. DLP: 742 mGy-cm. mGy. LIMITATIONS: No technical limitations. FINDINGS: LUNGS AND PLEURA: Bilateral small effusions with dependent subsegmental atelectasis in the lower lobes. Diffuse ground-glass opacities throughout the remaining aerated lung, geographic mosai c pattern with more focal ground-glass infiltrates particularly in the upper lobes. No pneumothorax. HILAR AND MEDIASTINAL STRUCTURES: Precarinal enlarged node, 2 cm in short axis. Probable subcarinal and smaller additional nodes throughout. HEART AND VASCULAR STRUCTURES: Cardiomegaly. No pericardial effusion. No significant coronary calci fication or evidence of aortic aneurysm. UPPER ABDOMEN: No significant findings. Limited exam. THYROID AND OTHER SOFT TISSUES: No masses. No adenopathy. BONES: No significant finding. HARDWARE: None in the chest. OTHER: No other significant findings. IMPRESSION: 1. Bilateral small effusions and cardiomegaly with probable edema. These findings suggest congestive failure. Superimposed viral pneumonia is also in the differential, depending on clinical presentati on. TECHNICAL DOCUMENTATION: JOB ID: [id number] Quality ID # [id number]: Final reports with documentation of one or more dose reduction techniques (e.g., Au tomated exposure control, adjustment of the mA and/or kV according to patient size, use of iterative reconstruction technique) 2010 [employer]- All Rights Reserved Reading location - IP/workstation name: [email or web address]
[2019-09-17] MEDS: ATORVASTATIN CALCIUM 20 MG TABLET PO SCH (21:34)
[2019-09-17] MEDS: INSULIN GLARGINE,HUM.REC.ANLOG 1,000 UNIT/10 ML VIAL SUBCUT SCH (21:36)
[2019-09-18] MEDS: PANTOPRAZOLE SODIUM 40 MG TABLET.DR PO SCH (06:02)
[2019-09-18] MEDS: HYDRALAZINE HCL 50 MG TABLET PO SCH ×3 (06:02→21:49)
[2019-09-18 06:38] LABS: ABSOLUTE BASOPHILS # (AUTO) 0.1 10^3/uL (0.0-0.2); ABSOLUTE EOSINOPHILS # (AUTO) 0.1 10^3/uL (0.0-0.6); ABSOLUTE LYMPHOCYTES (AUTO) 1.2 10^3/uL (0.5-4.7); ABSOLUTE MONOCYTES (AUTO) 0.7 10^3/uL (0.1-1.4); ABSOLUTE NEUT (AUTO) 8.7 10^3/uL (1.7-8.2); BASOPHILS % (AUTO) 0.6 % (0-2); EOSINOPHILS % (AUTO) 1.1 % (0-6); HEMATOCRIT 32.5 % (37.9-51.0); HEMOGLOBIN 10.6 g/dL (13.5-17.0); LYMPHOCYTES % (AUTO) 10.9 % (13-45); MEAN CORPUSCULAR HEMOGLOBIN 25.2 pg (27.0-33.4); MEAN CORPUSCULAR HGB CONC 32.4 g/dL (32.0-36.0); MEAN CORPUSCULAR VOLUME 78 fl (80-97); MONOCYTES % (AUTO) 6.7 % (3-13); PLATELET COUNT 249 10^3/uL (150-450); RED BLOOD COUNT 4.19 10^6/uL (4.35-5.55); RED CELL DISTRIBUTION WIDTH 18.2 % (11.5-14.0); SEGMENTED NEUTROPHILS % (AUTO) 80.7 % (42-78); TOTAL CELLS COUNTED % (AUTO) 100 %; WHITE BLOOD COUNT 10.7 10^3/uL (4.0-10.5)
[2019-09-18 07:01] LABS: ALBUMIN 3.5 g/dL (3.5-5.0); ALKALINE PHOSPHATASE 50 U/L (38-126); ANION GAP 12 (5-19); ASPARTATE AMINO TRANSFERASE 23 U/L (17-59); BILIRUBIN,DIRECT 0.1 mg/dL (0.0-0.4); BILIRUBIN,TOTAL 1.7 mg/dL (0.2-1.3); BLOOD UREA NITROGEN 39 mg/dL (7-20); CALCIUM 8.8 mg/dL (8.4-10.2); CARBON DIOXIDE 24 mmol/L (22-30); CHLORIDE 108 mmol/L (98-107); GLUCOSE 111 mg/dL (75-110); POTASSIUM 3.8 mmol/L (3.6-5.0); TOTAL PROTEIN 6.7 g/dL (6.3-8.2)
[2019-09-18] MEDS: INSULIN REG, HUMAN 100 UNIT/ML 3 ML VIAL (PYX) SUBCUT SCH ×4 (08:00→21:55)
[2019-09-18] MEDS: GLIPIZIDE 5 MG TABLET PO SCH ×2 (08:00→16:15)
--- NOTE | 2019-09-18 08:14 | PDOC PROGRESS REPORT ---
Subjective Progress Note for:: 09/18/19 Subjective:: 59 year old male with history of chronic diastolic heart failure, morbid obesity, hypertension, diabetes mellitus, hyperlipidemia, CKD came to the emergency room with complaints of shortness of breath for the last 3 days. Denies any associated cough fever dizziness headaches nausea vomiting diarrhea. Denies any new skin rashes. Complaining of increasing weight gain. In the ER chest x-ray was done indicating of questionable atypical pneumonia versus pulmonary edema. BNP is elevated at 7220. Medical consult was requested for admission. Patient is initially hypoxic when the EMS picked him up pulse ox is in the 80s at the time of my examination he still on BiPAP. He lives alone with a girlfriend no recent travel history he is not in contact with anybody that came from out of state to visit him. Risk for coronavirus is extremely low in my opinion. 09/17/2019-patient doing much better presently on 4 L of oxygen via nasal cannula pulse ox is 97%. Comfortable in the bed communicating well. He denies any problems. No acute events in the last 24 hours. Blood pressures are improved heart rate is relatively controlled he is still in A. fib. 09/18/1989-89-tibx-old male with multiple medical problems including chronic diastolic heart failure admitted with acute on chronic CHF exacerbation. Is on Lasix 40 mg IV 3 times a day pulse oxes are improving this morning pulse ox is 98% on 3 L. He has a history of chronic atrial fibrillation, on anticoagulation with aphixaban and Coreg 25 mg p.o. twice daily for rate control. This morning heart rate is fluctuating between 110 to 120, plan is to increase the dose of Coreg to 37.5 mg p.o. twice a day. If needed will call cardiology consult. Reason For Visit: DYSPNEA Physical Exam Vital Signs: Temp Pulse Resp BP Pulse Ox 97.8 F 95 18 160/84 H 94 09/18/19 07:31 09/18/19 07:31 09/18/19 07:31 09/18/19 07:31 09/18/19 07:31 Intake & Output 09/17/19 09/18/19 09/19/19 06:59 06:59 06:59 Intake Total 50 1400 Output Total 2575 1375 Balance -2525 25 Weight 116.3 kg 115 kg General appearance: PRESENT: no acute distress, obese Head exam: PRESENT: atraumatic Eye exam: PRESENT: PERRLA Mouth exam: PRESENT: neck supple Teeth exam: PRESENT: poor dentation Respiratory exam: PRESENT: decreased breath sounds Cardiovascular exam: PRESENT: RRR. ABSENT: diastolic murmur, rubs, systolic murmur GI/Abdominal exam: PRESENT: normal bowel sounds, soft. ABSENT: distended, guarding, mass, organolmegaly, rebound, tenderness Rectal exam: PRESENT: deferred Extremities exam: PRESENT: full ROM. ABSENT: calf tenderness, clubbing, pedal edema Neurological exam: PRESENT: alert, awake, oriented to person, oriented to place, oriented to time, oriented to situation, CN II-XII grossly intact. ABSENT: motor sensory deficit Psychiatric exam: PRESENT: appropriate affect, normal mood. ABSENT: homicidal ideation, suicidal ideation Results Laboratory Results: 09/18/19 05:45 09/18/19 05:45 09/18/19 09/18/19 05:45 05:45 WBC 10.7 H RBC 4.19 L Hgb 10.6 L Hct 32.5 L MCV 78 L MCH 25.2 L MCHC 32.4 RDW 18.2 H Plt Count 249 Seg Neutrophils % 80.7 H Sodium 144.2 Potassium 3.8 Chloride 108 H Carbon Dioxide 24 Anion Gap 12 BUN 39 H Creatinine 2.20 H Est GFR ( Amer) 38 L Glucose 111 H Calcium 8.8 Magnesium 2.5 H Total Bilirubin 1.7 H AST 23 Alkaline Phosphatase 50 Total Protein 6.7 Albumin 3.5 09/16/19 09/16/19 09/16/19 09:35 09:35 15:20 Creatine Kinase 62 Troponin I 0.037 0.066 NT-Pro-B Natriuret Pep 7220 H 09/16/19 09/17/19 09/17/19 21:20 03:34 03:34 Creatine Kinase Troponin I 0.078 0.074 NT-Pro-B Natriuret Pep 79906 H 09/18/19 05:45 Creatine Kinase Troponin I NT-Pro-B Natriuret Pep 5590 H Impressions: Chest CT 09/16/19 00:00 IMPRESSION: 1. Bilateral small effusions and cardiomegaly with probable edema. These findings suggest congestive failure. Superimposed viral pneumonia is also in the differential, depending on clinical presentation. Chest X-Ray 09/16/19 09:42 IMPRESSION: Patchy alveolar airspace disease most marked in the lung periphery. This could represent atypical pneumonia or atypical pattern of pulmonary edema. Assessment and Plan - Diagnosis (1) Acute on chronic combined systolic and diastolic CHF (congestive heart failure) Is this a current diagnosis for this admission?: Yes Plan: 09/16/2019 patient is going to be admitted to [facility] as an inpatient with a diagnosis of acute on chronic combined systolic and diastolic heart failure. Started on Lasix 40 mg IV twice daily, to continue BiPAP on as-needed basis, fluid restriction 1500 cc/day is initiated. Patient is already onaphixabin started on GI prophylaxis. Latest echocardiogram was done in June of this year indicated above combined systolic and diastolic heart failure. 09/17/2019-patient is doing much better. Admitted with acute on chronic combined systolic and diastolic heart failure chest x-ray suggestive of pulmonary edema. Presently on Lasix 40 mg IV twice daily and also on 1500 cc fluid restriction. BUN actually went up from 7700-13,200 today. To increase IV Lasix to 3 times a day. Discussed the fluid restriction with the patient. He understood and agreed to stick to 1500 cc fluid restriction per day. 09/18/2019-patient is doing much better pulse ox is 98% on 3 L. Presently on Lasix 40 mg 3 times daily, creatinine is stable around 2.2. Patient history of chronic atrial fibrillation now in atrial fib with heart rate is around 120. Presently on Coreg 25 mg p.o. twice daily to increase the dose to 37.5 mg twice a day. (2) Atrial fibrillation with RVR Is this a current diagnosis for this admission?: No Plan: 09/16/2019-patient has history of A. fib at the time of my examination in sinus rhythm heart rate is around 110. To continue anticoagulation apixaban. 09/17/19-patient has history of A. fib on apixaban at home. For rate control he is on Coreg 25 mg p.o. twice daily which was reinitiated. Heart rate this morning is around 100. 09/18/2019-patient has history of chronic atrial fibrillation on apixaban. To increase the dose of Coreg to 37.5 mg p.o. twice daily and to consult cardiology. (3) Chronic kidney disease (CKD) Qualifiers: Chronic kidney disease stage: unspecified stage Qualified Code(s): N18.9 - Chronic kidney disease, unspecified Is this a current diagnosis for this admission?: No Plan: 09/16/2019-serum creatinine today is 2.06 much better compared to previous creatinines. Plan is to closely monitor the kidney function. 09/17/2019-serum creatinine today is 2.26. Patient has a history of stage III kidney disease. 2920 creatinine today is 2.2 stable. Patient has a history of stage III kidney disease. (4) Diabetes Is this a current diagnosis for this admission?: No Plan: 09/16/2019-patient has history of type 2 diabetes mellitus started on insulin sliding scale before meals and at bedtime to restart home medications. Latest blood sugar is 78. Dietary advice was provided. 09/17/2019-blood sugar this morning is 192. Plan is to continue insulin sliding scale and he is on Lantus 10 units at night. Plan is to continue the medication during the hospital stay. hemoGlobin A1c 6.6. 09/18/2019-hemoglobin A1c 6.6 blood sugar this morning is 111. Stable. Plan is to continue the present management. (5) Pneumonia Is this a current diagnosis for this admission?: Yes Plan: 09/16/2019-chest x-ray suggestive of atypical pneumonia. WBC count is normal no history of fever. Blood cultures are requested sputum culture is requested started on IV Rocephin 1 g daily. To get more information CT chest without contrast is requested. 09/17/2019-chest x-ray suggestive of atypical pneumonitis. CT chest without contrast was requested and patient unable to lay flat CT chest is postponed for tomorrow. 02/18/2020 initial chest x-ray indicated above possible atypical pneumonitis CT chest was done there is no indication of pneumonia patient is afebrile. WBC count is normal. Community-acquired pneumonia is unlikely. (6) Obesity Qualifiers: Obesity type: unspecified obesity type Qualified Code(s): E66.9 - Obesity, unspecified Is this a current diagnosis for this admission?: No (7) Hypertension Qualifiers: Hypertension type: essential hypertension Qualified Code(s): I10 - Essential (primary) hypertension Is this a current diagnosis for this admission?: No Plan: 09/16/2019-patient has history of chronic essential hypertension blood pressure in the ER is 197/120. Plan is to restart his home medications and a started on Lasix 40 mg IV twice a day, IV hydralazine 10 mg every 6 hours PRN for systolic blood pressure more than 160. 09/17/2019-latest blood pressure is 158/84. To continue Lasix 40 mg IV 3 times a day, and to continue IV hydralazine 10 mg every 6 hours as needed. To start the patient on losartan from today. 09/18/2019-blood pressure today is 159/74. Plan is to continue the present management at this time.
[2019-09-18] MEDS: FUROSEMIDE INJ/PF 40 MG/4 ML SDV IV SCH ×3 (09:18→17:14)
[2019-09-18] MEDS: APIXABAN 2.5 MG TABLET PO SCH ×2 (09:18→17:14)
[2019-09-18] MEDS: CARVEDILOL 12.5 MG TABLET PO SCH ×2 (09:18→21:50)
[2019-09-18] MEDS: LOSARTAN POTASSIUM 25 MG TABLET PO SCH (09:18)
[2019-09-18] MEDS: NIFEDIPINE 30 MG TAB.ER.24 PO SCH (09:18)
[2019-09-18] MEDS: CEFTRIAXONE 1 GM/D5W RTU 1 GM/50 ML RTUPB IV SCH (12:40)
[2019-09-18] MEDS: ATORVASTATIN CALCIUM 20 MG TABLET PO SCH (21:49)
[2019-09-18] MEDS: INSULIN GLARGINE,HUM.REC.ANLOG 1,000 UNIT/10 ML VIAL SUBCUT SCH (21:50)
[2019-09-19] MEDS: HYDRALAZINE HCL 50 MG TABLET PO SCH ×3 (05:29→21:10)
[2019-09-19] MEDS: PANTOPRAZOLE SODIUM 40 MG TABLET.DR PO SCH (05:29)
[2019-09-19 06:01] LABS: ABSOLUTE EOSINOPHILS # (AUTO) 0.2 10^3/uL (0.0-0.6); ABSOLUTE MONOCYTES (AUTO) 0.6 10^3/uL (0.1-1.4); ABSOLUTE NEUT (AUTO) 5.7 10^3/uL (1.7-8.2); BASOPHILS % (AUTO) 0.6 % (0-2); EOSINOPHILS % (AUTO) 2.6 % (0-6); HEMATOCRIT 33.2 % (37.9-51.0); LYMPHOCYTES % (AUTO) 13.6 % (13-45); MEAN CORPUSCULAR HEMOGLOBIN 25.5 pg (27.0-33.4); MEAN CORPUSCULAR HGB CONC 33.2 g/dL (32.0-36.0); MEAN CORPUSCULAR VOLUME 77 fl (80-97); MONOCYTES % (AUTO) 7.7 % (3-13); PLATELET COUNT 245 10^3/uL (150-450); RED BLOOD COUNT 4.31 10^6/uL (4.35-5.55); RED CELL DISTRIBUTION WIDTH 18.1 % (11.5-14.0); SEGMENTED NEUTROPHILS % (AUTO) 75.5 % (42-78); TOTAL CELLS COUNTED % (AUTO) 100 %; WHITE BLOOD COUNT 7.5 10^3/uL (4.0-10.5)
[2019-09-19 06:22] LABS: ALBUMIN 3.5 g/dL (3.5-5.0); ALKALINE PHOSPHATASE 55 U/L (38-126); ANION GAP 9 (5-19); ASPARTATE AMINO TRANSFERASE 16 U/L (17-59); BILIRUBIN,DIRECT 0.1 mg/dL (0.0-0.4); BILIRUBIN,TOTAL 1.4 mg/dL (0.2-1.3); BLOOD UREA NITROGEN 28 mg/dL (7-20); CALCIUM 8.1 mg/dL (8.4-10.2); CARBON DIOXIDE 28 mmol/L (22-30); CHLORIDE 106 mmol/L (98-107); GLUCOSE 87 mg/dL (75-110); POTASSIUM 3.4 mmol/L (3.6-5.0); TOTAL PROTEIN 6.4 g/dL (6.3-8.2)
[2019-09-19] MEDS: GLIPIZIDE 5 MG TABLET PO SCH ×2 (08:19→17:26)
[2019-09-19] MEDS: INSULIN REG, HUMAN 100 UNIT/ML 3 ML VIAL (PYX) SUBCUT SCH ×4 (08:19→22:10)
--- NOTE | 2019-09-19 08:57 | PDOC PROGRESS REPORT ---
Subjective Progress Note for:: 09/18/29 Subjective:: 59 year old male with history of chronic diastolic heart failure, morbid obesity, hypertension, diabetes mellitus, hyperlipidemia, CKD came to the emergency room with complaints of shortness of breath for the last 3 days. Denies any associated cough fever dizziness headaches nausea vomiting diarrhea. Denies any new skin rashes. Complaining of increasing weight gain. In the ER chest x-ray was done indicating of questionable atypical pneumonia versus pulmonary edema. BNP is elevated at 7220. Medical consult was requested for admission. Patient is initially hypoxic when the EMS picked him up pulse ox is in the 80s at the time of my examination he still on BiPAP. He lives alone with a girlfriend no recent travel history he is not in contact with anybody that came from out of state to visit him. Risk for coronavirus is extremely low in my opinion. 09/17/2019-patient doing much better presently on 4 L of oxygen via nasal cannula pulse ox is 97%. Comfortable in the bed communicating well. He denies any problems. No acute events in the last 24 hours. Blood pressures are improved heart rate is relatively controlled he is still in A. fib. 09/18/1970-19-yexf-old male with multiple medical problems including chronic diastolic heart failure admitted with acute on chronic CHF exacerbation. Is on Lasix 40 mg IV 3 times a day pulse oxes are improving this morning pulse ox is 98% on 3 L. He has a history of chronic atrial fibrillation, on anticoagulation with aphixaban and Coreg 25 mg p.o. twice daily for rate control. This morning heart rate is fluctuating between 110 to 120, plan is to increase the dose of Coreg to 37.5 mg p.o. twice a day. If needed will call cardiology consult. 09/19/19-patient is doing much better. Comfortable in the chair communicating well. On oxygen 3 L via nasal cannula pulse ox is 99%. BNP came down to 5590. cardiology consult was requested for A. fib with RVR patient is presently on Coreg 37.5 mg p.o. twice daily. Reason For Visit: DYSPNEA Physical Exam Vital Signs: Temp Pulse Resp BP Pulse Ox 98.3 F 99 18 140/87 H 100 09/19/19 07:29 09/19/19 07:29 09/19/19 07:29 09/19/19 07:29 09/19/19 07:29 Intake & Output 09/18/19 09/19/19 09/20/19 06:59 06:59 06:59 Intake Total 1400 1249 Output Total 1375 6175 Balance 25 -2125 Weight 115 kg 114.1 kg General appearance: PRESENT: no acute distress, mild distress, obese Head exam: PRESENT: atraumatic Eye exam: PRESENT: PERRLA Mouth exam: PRESENT: moist, tongue midline Teeth exam: PRESENT: poor dentation Neck exam: ABSENT: carotid bruit, JVD, lymphadenopathy, thyromegaly Respiratory exam: PRESENT: decreased breath sounds Cardiovascular exam: PRESENT: irregular rhythm, tachycardia Pulses: PRESENT: normal dorsalis pedis pul GI/Abdominal exam: PRESENT: normal bowel sounds, soft. ABSENT: distended, guarding, mass, organolmegaly, rebound, tenderness Rectal exam: PRESENT: deferred Extremities exam: PRESENT: +1 edema Neurological exam: PRESENT: alert, awake, oriented to person, oriented to place, oriented to time, oriented to situation, CN II-XII grossly intact. ABSENT: motor sensory deficit Psychiatric exam: PRESENT: appropriate affect, normal mood. ABSENT: homicidal ideation, suicidal ideation Results Laboratory Results: 09/19/19 05:25 09/19/19 05:25 09/19/19 09/19/19 05:25 05:25 WBC 7.5 RBC 4.31 L Hgb 11.0 L Hct 33.2 L MCV 77 L MCH 25.5 L MCHC 33.2 RDW 18.1 H Plt Count 245 Seg Neutrophils % 75.5 Sodium 142.8 Potassium 3.4 L Chloride 106 Carbon Dioxide 28 Anion Gap 9 BUN 28 H Creatinine 2.02 H Est GFR ( Amer) 41 L Glucose 87 Calcium 8.1 L Magnesium 2.2 Total Bilirubin 1.4 H AST 16 L Alkaline Phosphatase 55 Total Protein 6.4 Albumin 3.5 09/16/19 09/16/19 09/16/19 09:35 09:35 15:20 Creatine Kinase 62 Troponin I 0.037 0.066 NT-Pro-B Natriuret Pep 7220 H 09/16/19 09/17/19 09/17/19 21:20 03:34 03:34 Creatine Kinase Troponin I 0.078 0.074 NT-Pro-B Natriuret Pep 85121 H 09/18/19 05:45 Creatine Kinase Troponin I NT-Pro-B Natriuret Pep 5590 H Impressions: Chest CT 09/16/19 00:00 IMPRESSION: 1. Bilateral small effusions and cardiomegaly with probable edema. These fin dings suggest congestive failure. Superimposed viral pneumonia is also in the differential, depending on clinical presentation. Chest X-Ray 09/16/19 09:42 IMPRESSION: Patchy alveolar airspace disease most marked in the lung periphery. This could represent atypical pneumonia or atypical pattern of pulmonary edema. Assessment and Plan - Diagnosis (1) Acute on chronic combined systolic and diastolic CHF (congestive heart failure) Is this a current diagnosis for this admission?: Yes Plan: 09/16/2019 patient is going to be admitted to [facility] as an inpatient with a diagnosis of acute on chronic combined systolic and diastolic heart failure. Started on Lasix 40 mg IV twice daily, to continue BiPAP on as-needed basis, fluid restriction 1500 cc/day is initiated. Patient is already onaphixabin started on GI prophylaxis. Latest echocardiogram was done in June of this year indicated above combined systolic and diastolic heart failure. 09/17/2019-patient is doing much better. Admitted with acute on chronic combined systolic and diastolic heart failure chest x-ray suggestive of pulmonary edema. Presently on Lasix 40 mg IV twice daily and also on 1500 cc fluid restriction. BUN actually went up from 7700-13,200 today. To increase IV Lasix to 3 times a day. Discussed the fluid restriction with the patient. He understood and agreed to stick to 1500 cc fluid restriction per day. 09/18/2019-patient is doing much better pulse ox is 98% on 3 L. Presently on Lasix 40 mg 3 times daily, creatinine is stable around 2.2. Patient history of chronic atrial fibrillation now in atrial fib with heart rate is around 120. Presently on Coreg 25 mg p.o. twice daily to increase the dose to 37.5 mg twice a day. 09/19/19-pulse ox is a 99% on 3 L. In the chair communicating okay without any shortness of breath. On 3 L of oxygen. Leg edema is improving. On examination very minimal crackles on the chest. Patient is on 1500 cc fluid restriction. Recent echocardiogram indicates combined systolic and diastolic heart failure. Plan is to continue Lasix IV twice a day. (2) Atrial fibrillation with RVR Is this a current diagnosis for this admission?: No Plan: 09/16/2019-patient has history of A. fib at the time of my examination in sinus rhythm heart rate is around 110. To continue anticoagulation apixaban. 09/17/19-patient has history of A. fib on apixaban at home. For rate control he is on Coreg 25 mg p.o. twice daily which was reinitiated. Heart rate this morning is around 100. 09/18/2019-patient has history of chronic atrial fibrillation on apixaban. To increase the dose of Coreg to 37.5 mg p.o. twice daily and to consult cardiology. 09/19/2019-patient has history of chronic A. fib on anticoagulation aphixaban. Plan is to continue Coreg 37.5 mg p.o. twice daily. Cardiology consult is requested. (3) Chronic kidney disease (CKD) Qualifiers: Chronic kidney disease stage: unspecified stage Qualified Code(s): N18.9 - Chronic kidney disease, unspecified Is this a current diagnosis for this admission?: No Plan: 09/16/2019-serum creatinine today is 2.06 much better compared to previous creatinines. Plan is to closely monitor the kidney function. 09/17/2019-serum creatinine today is 2.26. Patient has a history of stage III ki dney disease. 09/18/19 creatinine today is 2.2 stable. Patient has a history of stage III kidney disease. 09/19/2019-creatinine today is 2.02. Stable. (4) Diabetes Is this a current diagnosis for this admission?: No Plan: 09/16/2019-patient has history of type 2 diabetes mellitus started on insulin sliding scale before meals and at bedtime to restart home medications. Latest blood sugar is 78. Dietary advice was provided. 09/17/2019-blood sugar this morning is 192. Plan is to continue insulin sliding scale and he is on Lantus 10 units at night. Plan is to continue the medication during the hospital stay. hemoGlobin A1c 6.6. 09/18/2019-hemoglobin A1c 6.6 blood sugar this morning is 111. Stable. Plan is to continue the present management. 09/19/2019-latest blood sugar is 87. Blood sugars are stable. Plan is to c ontinue the present management. (5) Pneumonia Is this a current diagnosis for this admission?: Yes Plan: 09/16/2019-chest x-ray suggestive of atypical pneumonia. WBC count is normal no history of fever. Blood cultures are requested sputum culture is requested started on IV Rocephin 1 g daily. To get more information CT chest without contrast is requested. 09/17/2019-chest x-ray suggestive of atypical pneumonitis. CT chest without contrast was requested and patient unable to lay flat CT chest is postponed for tomorrow. 02/18/2020 initial chest x-ray indicated above possible atypical pneumonitis CT chest was done there is no indication of pneumonia patient is afebrile. WBC count is normal. Community-acquired pneumonia is unlikely. (6) Obesity Qualifiers: Obesity type: unspecified obesity type Qualified Code(s): E66.9 - Obesity, unspecified Is this a current diagnosis for this admission?: No (7) Hypertension Qualifiers: Hypertension type: essential hypertension Qualified Code(s): I10 - Essential (primary) hypertension Is this a current diagnosis for this admission?: No Plan: 09/16/2019-patient has history of chronic essential hypertension blood pressure in the ER is 197/120. Plan is to restart his home medications and a started on Lasix 40 mg IV twice a day, IV hydralazine 10 mg every 6 hours PRN for systolic blood pressure more than 160. 09/17/2019-latest blood pressure is 158/84. To continue Lasix 40 mg IV 3 times a day, and to continue IV hydralazine 10 mg every 6 hours as needed. To start the patient on losartan from today. 09/18/2019-blood pressure today is 159/74. Plan is to continue the present management at this time. 09/19/2019-blood pressure today is 140/84. Improved. Plan is to continue the present management.
[2019-09-19] MEDS: NIFEDIPINE 30 MG TAB.ER.24 PO SCH (09:00)
[2019-09-19] MEDS: LOSARTAN POTASSIUM 25 MG TABLET PO SCH (09:00)
[2019-09-19] MEDS: CARVEDILOL 12.5 MG TABLET PO SCH ×2 (09:00→21:10)
[2019-09-19] MEDS: APIXABAN 2.5 MG TABLET PO SCH ×2 (09:00→17:25)
[2019-09-19] MEDS: FUROSEMIDE INJ/PF 40 MG/4 ML SDV IV SCH ×2 (13:37→17:27)
[2019-09-19] MEDS: CEFTRIAXONE 1 GM/D5W RTU 1 GM/50 ML RTUPB IV SCH (13:40)
[2019-09-19] MEDS: ATORVASTATIN CALCIUM 20 MG TABLET PO SCH (21:10)
--- NOTE | 2019-09-19 21:40 | Progress Note ---
Provider Note Provider Note: CARDIOLOGY PROGRESS NOTE by Dr. Rimma Ly on 09/19/2019. OBJECTIVE: The patient states his shortness of breath is improved. He still has some degree of orthopnea but no PND. His leg edema is almost resolved and there is only trace pedal edema. He denies any chest pain or discomfort. There is no shortness of breath at rest. It is noted that when his oxygen is turned down to 1 L/min the patient becomes hypoxic. The patient has no history of smoking or secondhand exposure to smoke. He has no history of asthma or COPD. Most likely this is secondary to restrictive lung disease due to the patient's heart failure secondary to volume overload. The patient's urinalysis shows significant proteinuria. Suspect the patient has nephrotic syndrome. We will get a 24-hour urine for protein to quantify the patient's proteinuria burden. PHYSICAL EXAMINATION: The patient is moderately obese. In no acute distress. Selected Entries 09/19/19 11:41 Temperature 97.9 F Temperature Oral Source Pulse Rate 104 H Respiratory 18 Rate Blood Pressure 148/98 H Blood Pressure 114 Mean BP Location Left Arm BP Position Sitting O2 Sat by Pulse 100 Oximetry Oxygen Flow 2.00 Rate Oxygen Delivery Nasal Cannula Method Head: Is atraumatic normocephalic. EYES: Pupils are equal round regular reactive light accommodation. Extraocular movements are normal. There is no conjunctival pallor. There is no scleral icterus. EARS: Tympanic memories are intact. External auditory canals are clear. NOSE: There is no deviated nasal septum. There is no inflammation of the nasal mucous membrane. MOUTH: Mucous membranes of the mouth are moist. Tongue is moist. THROAT: There is no redness of the oropharynx. There is no exudates. SKIN: There is no skin rashes or skin lesions. There is no petechia or ecchymosis. NECK: Supple. There is no JVD. Carotids are equal there is no bruit. There is no lymphadenopathy. There is no goiter. There is no accessory muscle respiration use. Trachea central. LUNGS: There is diminished air entry prolonged expiration without any rhonchi rales or wheezing. Lungs are clear without rhonchi rales or wheezing. HEART: S1-S2 is heard. There is no S3 gallop. There is no S4 gallop. There is systolic murmur in the left sternal border and the apex there is no rub. ABDOMEN: Is soft. Nontender. There is no hepatosplenomegaly. Bowel sounds are well heard. There is no tender areas masses. EXTREMITIES: Femorals are diminished. There is no femoral bruits. Leg pulses are diminished. There is trace pedal edema. There is no DVT or cellulitis. There is no calf tenderness. 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 PSYCHIATRIC:. Patient judgment insight are intact his affect is normal. Labs- All tests 24 hr 09/18/19 09/19/19 09/19/19 21:16 05:25 05:25 WBC 7.5 RBC 4.31 L Hgb 11.0 L Hct 33.2 L MCV 77 L MCH 25.5 L MCHC 33.2 RDW 18.1 H Plt Count 245 Lymph % (Auto) 13.6 [place] % (Auto) 7.7 Eos % (Auto) 2.6 Baso % (Auto) 0.6 Absolute Neuts (auto) 5.7 Absolute Lymphs (auto) 1.0 Absolute Monos (auto) 0.6 Absolute Eos (auto) 0.2 Absolute Basos (auto) 0.0 Seg Neutrophils % 75.5 Sodium 142.8 Potassium 3.4 L Chloride 106 Carbon Dioxide 28 Anion Gap 9 BUN 28 H Creatinine 2.02 H Est GFR ( Amer) 41 L Est GFR (MDRD) Non-Af 34 L Glucose 87 POC Glucose 138 H Calcium 8.1 L Magnesium 2.2 Total Bilirubin 1.4 H Direct Bilirubin 0.1 Neonat Total Bilirubin Not Reportable Neonat Direct Bilirubin Not Reportable Neonat Indirect Bili Not Reportable AST 16 L ALT 18 Alkaline Phosphatase 55 Total Protein 6.4 Albumin 3.5 09/19/19 09/19/19 09/19/19 07:27 11:39 16:04 WBC RBC Hgb Hct MCV MCH MCHC RDW Plt Count Lymph % (Auto) [place] % (Auto) Eos % (Auto) Baso % (Auto) Absolute Neuts (auto) Absolute Lymphs (auto) Absolute Monos (auto) Absolute Eos (auto) Absolute Basos (auto) Seg Neutrophils % Sodium Potassium Chloride Carbon Dioxide Anion Gap BUN Creatinine Est GFR ( Amer) Est GFR (MDRD) Non-Af Glucose POC Glucose 92 121 H 189 H Calcium Magnesium Total Bilirubin Direct Bilirubin Neonat Total Bilirubin Neonat Direct Bilirubin Neonat Indirect Bili AST ALT Alkaline Phosphatase Total Protein Albumin Chest CT 09/16/19 00:00 IMPRESSION: 1. Bilateral small effusions and cardiomegaly with probable edema. These findings suggest congestive failure. Superimposed viral pneumonia is also in the differential, depending on clinical presentation. Chest X-Ray 09/16/19 09:42 IMPRESSION: Patchy alveolar airspace disease most marked in the lung periphery. This could represent atypical pneumonia or atypical pattern of pulmonary edema. IMPRESSION/RECOMMENDATION: 1. Congestive heart failure most likely secondary to volume overload. And also nephrotic syndrome most likely. 2. Significant proteinuria on urine exam. Suspect nephrotic range proteinuria. We will get a 24-hour urine protein for quantification. 3. Hypertension: Blood pressure well controlled. Continue current medication. 4. Diabetes mellitus: Continue current antidiabetic treatment and Accu-Cheks as per protocol. 5. Chronic atrial fibrillation: Continue current Coreg and Eliquis. 6. Chronic kidney disease stage III. Avoid nephrotoxic drugs. Medications Reviewed. Medical regimen and management plan discussed with attending provider. Would strongly recommend nephrology consult. Medical decision making is of high complexity. 40 minutes spent as patient more than 50% time spent in direct patient care. Will follow
[2019-09-19] MEDS: INSULIN GLARGINE,HUM.REC.ANLOG 1,000 UNIT/10 ML VIAL SUBCUT SCH (22:19)
[2019-09-20 03:14] LABS: URINE CREATININE 104.6 mg/dL (22-328)
[2019-09-20 03:30] LABS: UR PRO/CREAT RATIO RESULT 2.5 mg/mg (0.0-0.2); URINE PROTEIN 259.5 mg/dL (<12)
[2019-09-20] MEDS: HYDRALAZINE HCL 50 MG TABLET PO SCH ×3 (05:23→21:43)
[2019-09-20] MEDS: PANTOPRAZOLE SODIUM 40 MG TABLET.DR PO SCH (05:23)
[2019-09-20] MEDS: INSULIN REG, HUMAN 100 UNIT/ML 3 ML VIAL (PYX) SUBCUT SCH ×4 (07:51→21:40)
[2019-09-20] MEDS: GLIPIZIDE 5 MG TABLET PO SCH ×2 (07:54→16:27)
[2019-09-20] MEDS: NIFEDIPINE 30 MG TAB.ER.24 PO SCH (09:44)
[2019-09-20] MEDS: LOSARTAN POTASSIUM 25 MG TABLET PO SCH (09:44)
[2019-09-20] MEDS: CARVEDILOL 12.5 MG TABLET PO SCH ×2 (09:44→21:43)
[2019-09-20] MEDS: APIXABAN 2.5 MG TABLET PO SCH ×2 (09:45→17:26)
[2019-09-20] MEDS: FUROSEMIDE INJ/PF 40 MG/4 ML SDV IV SCH ×2 (09:45→17:26)
[2019-09-20] MEDS: CEFTRIAXONE 1 GM/D5W RTU 1 GM/50 ML RTUPB IV SCH (12:20)
--- NOTE | 2019-09-20 12:56 | PDOC PROGRESS REPORT ---
Subjective Progress Note for:: 09/20/19 Reason For Visit: DYSPNEA 09/20/2019 Patient was originally omitted 3 days ago for shortness of breath, CHF, nephrotic syndrome Physical Exam Vital Signs: Temp Pulse Resp BP Pulse Ox 97.8 F 83 17 141/82 H 98 09/20/19 11:11 09/20/19 11:11 09/20/19 11:11 09/20/19 11:11 09/20/19 11:11 Intake & Output 09/19/19 09/20/19 09/21/19 06:59 06:59 06:59 Intake Total 1249 937 Output Total 3375 1225 Balance -2126 -288 Weight 114.1 kg 115 kg General appearance: PRESENT: no acute distress Respiratory exam: PRESENT: decreased breath sounds Cardiovascular exam: PRESENT: RRR. ABSENT: diastolic murmur, rubs, systolic murmur Neurological exam: PRESENT: alert, awake, oriented to person, oriented to place, oriented to time, oriented to situation, CN II-XII grossly intact. ABSENT: motor sensory deficit Psychiatric exam: PRESENT: appropriate affect, normal mood. ABSENT: homicidal ideation, suicidal ideation Results Laboratory Results: 09/19/19 05:25 09/19/19 05:25 09/16/19 09/16/19 09/16/19 09:35 09:35 15:20 Creatine Kinase 62 Troponin I 0.037 0.066 NT-Pro-B Natriuret Pep 7220 H 09/16/19 09/17/19 09/17/19 21:20 03:34 03:34 Creatine Kinase Troponin I 0.078 0.074 NT-Pro-B Natriuret Pep 17286 H 09/18/19 05:45 Creatine Kinase Troponin I NT-Pro-B Natriuret Pep 5590 H Impressions: Chest CT 09/16/19 00:00 IMPRESSION: 1. Bilateral small effusions and cardiomegaly with probable edema. These findings suggest congestive failure. Superimposed viral pneumonia is also in the differential, depending on clinical presentation. Chest X-Ray 09/16/19 09:42 IMPRESSION: Patchy alveolar airspace disease most marked in the lung periphery. This could represent atypical pneumonia or atypical pattern of pulmonary edema. Assessment and Plan - Diagnosis (1) Proteinuria Is this a current diagnosis for this admission?: Yes (2) CKD stage 4 due to type 2 diabetes mellitus Is this a current diagnosis for this admission?: Yes (3) Chronic atrial fibrillation Is this a current diagnosis for this admission?: Yes (4) Diabetes Is this a current diagnosis for this admission?: Yes (5) Pulmonary edema Qualifiers: Chronicity: acute Qualified Code(s): J81.0 - Acute pulmonary edema Is this a current diagnosis for this admission?: Yes (6) Respiratory distress Is this a current diagnosis for this admission?: Yes (7) Hypertension Qualifiers: Hypertension type: essential hypertension Qualified Code(s): I10 - Essential (primary) hypertension Is this a current diagnosis for this admission?: Yes - Plan Summary Summary: 09/20/2019 Temperature is 98 pulse erratic between 52 and 100, she has a history of atrial fib Blood pressure able approximately 150/80 Oxygen saturation between 96 and 100% now down to 2 L. Patient does not use home oxygen Recent CT scan of the chest shows no evidence of pneumonia Patient's creatinine appears to be stable at approximately 2, GFR of approximately 40 which is probably close to his baseline Patient's urine total protein is 259 which is elevated. Patient has seen nephr ology in the past while in the hospital. I have consulted nephrology concerning his proteinuria and is renal functions. Nursing is going to try to wean patient off of his oxygen see what his saturat ions are all on room air Patient's last dose of IV Rocephin was today Patient currently taking Lasix 40 mg IV every 12 hours. According to the chart patient was supposed to be taking 40 mg p.o. twice daily prior to admission although I am not certain he was taking this medicine - Time Time Spent with patient: 25-34 minutes
--- NOTE | 2019-09-20 18:14 | Progress Note ---
Provider Note Provider Note: CARDIOLOGY PROGRESS NOTE by Dr. Rimma Ly on 09/20/2019. SUBJECTIVE: The patient denies any chest pain or discomfort. There is no shortness of breath. There is no PND orthopnea. His leg edema is only trace now. There is no arrhythmia seen on the monitor of ventricular origin. The patient continues to be in atrial fibrillation with controlled ventricular response. The patient's spot urine protein to creatinine ratio is very high suggestive of significant proteinuria. Await 24-hour urine protein sandra ntification. PHYSICAL EXAMINATION: The patient is moderately obese. In the present in no acute distress. Selected Entries 09/20/19 15:08 Temperature 97.6 F Temperature Oral Source Pulse Rate 90 Respiratory 17 Rate Blood Pressure 146/87 H Blood Pressure 106 Mean BP Location Left Arm BP Position Sitting O2 Sat by Pulse 94 Oximetry Oxygen Flow 1.00 Rate Oxygen Delivery Nasal Cannula Method Head: Is atraumatic normocephalic. EYES: Pupils are equal round regular reactive light accommodation. Extraocular movements are normal. There is no conjunctival pallor. There is no scleral icterus. EARS: Tympanic memories are intact. External auditory canals are clear. NOSE: There is no deviated nasal septum. There is no inflammation of the nasal mucous membrane. MOUTH: Mucous membranes of the mouth are moist. Tongue is moist. THROAT: There is no redness of the oropharynx. There is no exudates. SKIN: There is no skin rashes or skin lesions. There is no petechia or ecchymosis. NECK: Supple. There is no JVD. Carotids are equal there is no bruit. There is no lymphadenopathy. There is no goiter. There is no accessory muscle respiration use. Trachea central. LUNGS: There is diminished air entry prolonged expiration without any rhonchi rales or wheezing. Lungs are clear without rhonchi rales or wheezing. HEART: S1-S2 is heard. There is no S3 gallop. There is no S4 gallop. There is systolic murmur in the left sternal border and the apex there is no rub. ABDOMEN: Is soft. Nontender. There is no hepatosplenomegaly. Bowel sounds are well heard. There is no tender areas masses. EXTREMITIES: Femorals are diminished. There is no femoral bruits. Leg pulses are diminished. There is trace pedal edema. There is no DVT or cellulitis. There is no calf tenderness. 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 PSYCHIATRIC:. Patient judgment insight are intact his affect is normal. Labs- All tests 24 hr 09/19/19 09/20/19 09/20/19 21:28 02:28 07:35 POC Glucose 112 H 78 Urine Creatinine 104.6 Protein/Creatinin Ratio 2.5 H Urine Total Protein 259.5 H 09/20/19 09/20/19 11:12 16:17 POC Glucose 95 181 H Urine Creatinine Protein/Creatinin Ratio Urine Total Protein Chest CT 09/16/19 00:00 IMPRESSION: 1. Bilateral small effusions and cardiomegaly with probable edema. These findings suggest congestive failure. Superimposed viral pneumonia is also in the differential, depending on clinical presentation. Chest X-Ray 09/16/19 09:42 IMPRESSION: Patchy alveolar airspace disease most marked in the lung periphery. This could represent atypical pneumonia or atypical pattern of pulmonary edema. IMPRESSION/RECOMMENDATION: 1. Congestive heart failure most likely secondary to volume overload. And also nephrotic syndrome most likely. 2. Significant proteinuria on urine exam. Suspect nephrotic range proteinuria. We will get a 24-hour urine protein for quantification. 3. Hypertension: Blood pressure well controlled. Continue current medication. 4. Diabetes mellitus: Continue current antidiabetic treatment and Accu-Cheks as per protocol. 5. Chronic atrial fibrillation: Continue current Coreg and Eliquis. 6. Chronic kidney disease stage III. Avoid nephrotoxic drugs. Medications reviewed. Medical regimen and management plan discussed with attending provider. Medical decision making is a moderate complexity. 40 minutes spent as patient with more than 50% time spent in direct patient care. Will follow.
--- NOTE | 2019-09-20 19:32 | PDOC CONSULTATION ---
Consultation Consult Date: 09/20/19 Provider Consulted: SERGIO CASTRO Consult reason:: CKD with Proteinuria History of Present Illness Admission Date/PCP: 09/16/19 16:06 ERMA DESAI History of Present Illness: CATHY HALL is a 59-year-old -[place] gentleman with history of chronic kidney disease stage III, diastolic congestive heart failure, chronic atrial fibrillation, obesity, hypertension, Diabetes Mellitus 2 and hyperlipidemia who presented in the emergency room about 4 days ago because of increasing shortness of breath, weight gain and edema. Patient was admitted with acute exacerbation of diastolic congestive heart failure. His chest x-ray is consistent with pulmonary edema versus atypical pneumonia. CT of the chest on September 16 also showed bilateral small effusion, cardiomegaly, and pulmonary edema. Upon presentation he was given a dose of furosemide 80 mg IV followed by a maintenance dose of 40 mg IV 3 times a day which is now decreased to twice a day. Patient has been responding positively with good urine output. Patient still admits orthopnea since he cannot lay flat on his back. At this time he said he is feeling much better in terms of breathing. He still has significant lower extremity edema though. The patient has chronic kidney disease baseline stage III with known non- nephrotic range proteinuria. On admission the patient had a BUN of 28, creatinine of 2.06 with estimated GFR 40. Most recent labs yesterday showed a BUN of 28, creatinine of 2.02 with EGFR 41. His usual baseline creatinine in 2018 ranges between 2-2.7 with EGFR ranging between 30-41. Last admission in June the patient's creatinine ranged anywhere between 2.7-3.0. His urinalysis showed significant amount of proteinuria but no hematuria. His current urine protein to creatinine ratio is 2.5 which is increased from 1.2 on July 12, 2019. His albumin has always been within normal limits currently at 3.5. His lipid panel is also within acceptable normal limits. Patient had a kidney ultrasound done on July 12, 2019 which showed bilateral small kidneys consistent with chronic kidney disease without any hydronephrosis, nor solid or suspicious masses. He also had duplex of renal arteries on July 14, 2019 which showed no Doppler evidence of renal artery stenosis. Past Medical History Cardiac Medical History: Reports: Atrial Fibrillation, CHF-Diastolic, Hyperlipidemia, Hypertension-primary Pulmonary Medical History: Reports: Sleep Apnea - Patient underwent an incomplete sleep study at feeling great recently. Endocrine Medical History: Reports: Diabetes Mellitus Type 2 Renal/ Medical History: Reports: Chronic Kidney Disease Stage III, Hyperphosphatemia, Secondary Hyperparathyroidism Hematology Medical History: Reports Anemia of Chronic Kidney Disease, Reports Iron Deficiency Anemia Past Surgical History Past Surgical History: Reports: None Social History Information Source: Patient Lives with: Spouse/Significant other Smoking Status: Never Smoker Electronic Cigarette use?: No Frequency of Alcohol Use: None Hx Recreational Drug Use: No Drugs: None Hx Prescription Drug Abuse: No - Advance Directive Resuscitation Status: Full Code Family History Family History: DM - Mother and 2 sisters, End Stage Renal Disease - Mother was on dialysis. Parental Family History Reviewed: Yes Children Family History Reviewed: NA Sibling(s) Family History Reviewed.: Yes Medication/Allergy Home Medications: Apixaban [Eliquis 2.5 mg Tablet] 2.5 mg PO BID #60 tablet 04/23/18 Atorvastatin Calcium [Lipitor 20 mg Tablet] 20 mg PO QHS #30 tablet 04/23/18 Furosemide [Lasix 40 mg Tablet] 40 mg PO BID #60 tablet 07/15/19 Glipizide [Glucotrol 5 mg Tablet] 2.5 mg PO BIDACBS #30 tablet 07/15/19 Hydralazine HCl 100 mg PO Q8 1 Days #90 tablet 07/15/19 Insulin Glargine,Hum.rec.anlog [Lantus Insulin 100 Unit/mL Insulin Pen] 10 unit SUBCUT QHS #10 ml 07/15/19 Nifedipine [Nifedipine ER] 90 mg PO DAILY #30 tablet.er 07/15/19 Allergies/Adverse Reactions: No Known Allergies Allergy (Verified 04/20/18 11:04) Review of Systems All systems: reviewed and no additional remarkable complaints except as stated Review of Systems: Constitutional: ABSENT: chills, fatigue, fever(s), headache(s), weight loss; reports fluid weight gain Eyes: ABSENT: visual disturbances Ears: ABSENT: hearing changes Cardiovascular: ABSENT: chest pain, palpitations; admits shortness of breath, edema and orthopnea Respiratory: ABSENT: cough, hemoptysis Gastrointestinal: ABSENT: abdominal pain, constipation, diarrhea, hematemesis, hematochezia, nausea, vomiting Genitourinary: ABSENT: dysuria, hematuria Musculoskeletal: ABSENT: joint swelling Integumentary: ABSENT: rash, wounds Neurological: ABSENT: abnormal gait, abnormal speech, confusion, dizziness, focal weakness, numbness, syncope Psychiatric: ABSENT: anxiety, depression Endocrine: ABSENT: cold intolerance, heat intolerance, polydipsia, polyuria Hematologic/Lymphatic: ABSENT: easy bleeding, easy bruising, lymphadenopathy Physical Exam Vital Signs: Temp Pulse Resp BP Pulse Ox 97.4 F 103 H 18 148/87 H 97 09/20/19 07:32 09/20/19 07:32 09/20/19 07:32 09/20/19 07:32 09/20/19 08:20 Intake & Output 09/19/19 09/20/19 09/21/19 06:59 06:59 06:59 Intake Total 1249 937 Output Total 3375 1225 Balance -2126 -288 Weight 114.1 kg 115 kg Exam: General appearance: No acute distress, cooperative, well-developed, well- nourished Head exam: PRESENT: atraumatic, normocephalic Eye exam: PRESENT: Conjunctiva pale, EOMI, PERRLA. ABSENT: conjunctival injection, scleral icterus Mouth exam: PRESENT: moist, neck supple, tongue midline Neck exam: PRESENT: full ROM. ABSENT: carotid bruit, JVD, lymphadenopathy, thyromegaly Respiratory exam: PRESENT: clear to auscultation bilaterally. ABSENT: rales, rhonchi, stridor, wheezes Cardiovascular exam: PRESENT: Irregularly irregular, +S1, +S2. ABSENT: systolic murmur Pulses: PRESENT: normal radial pulses, normal dorsalis pedis pulses GI/Abdominal exam: PRESENT: normal bowel sounds, soft. ABSENT: guarding, mass, tenderness Rectal exam: Deferred Extremities exam: PRESENT: full ROM. Grade 2 bilateral lower extremity pitting edema ABSENT: calf tenderness Musculoskeletal: PRESENT: full ROM. ABSENT: deformity Neurological exam: PRESENT: alert, Awake, Oriented to person, Oriented to place, Oriented to time, reflexes normal, CN II-XII grossly intact. ABSENT: motor sensory deficit Psychiatric exam: PRESENT: appropriate affect, normal mood. ABSENT: homicidal ideation, suicidal ideation Skin exam: PRESENT: intact, dry, warm. ABSENT: rash Results Laboratory Results: 09/19/19 05:25 09/19/19 05:25 09/16/19 09/16/19 09/16/19 09:35 09:35 15:20 Creatine Kinase 62 Troponin I 0.037 0.066 NT-Pro-B Natriuret Pep 7220 H 09/16/19 09/17/19 09/17/19 21:20 03:34 03:34 Creatine Kinase Troponin I 0.078 0.074 NT-Pro-B Natriuret Pep [id number] H 09/18/19 05:45 Creatine Kinase Troponin I NT-Pro-B Natriuret Pep 5590 H Impressions: Chest CT 09/16/19 00:00 IMPRESSION: 1. Bilateral small effusions and cardiomegaly with probable edema. These findings suggest congestive failure. Superimposed viral pneumonia is also in t he differential, depending on clinical presentation. Chest X-Ray 09/16/19 09:42 IMPRESSION: Patchy alveolar airspace disease most marked in the lung periphery. This could represent atypical pneumonia or atypical pattern of pulmonary edema. Assessment & Plan - Diagnosis (1) Acute on chronic diastolic (congestive) heart failure Is this a current diagnosis for this admission?: Yes Plan: Echocardiogram on July 12, 2019 shows normal left ventricular ejection fraction, LVH diastolic dysfunction. Patient currently on medications including furosemide, carvedilol, hydralazine, losartan and nifedipine. Athletic Director, Dr. Ly on board. Current furosemide dose decreased to every 12 hours. I think we have to look at the goal of -500 to 1 L fluid balance daily and if is not achieved and we have to increase the dose of furosemide. (2) Chronic kidney disease, stage III (moderate) Is this a current diagnosis for this admission?: Yes Plan: This is associated with nonnephrotic range proteinuria but no microhematuria. This is due to combination of hypertensive nephrosclerosis and contribution of diabetic nephropathy. Patient's kidney function is currently even better than h is usual baseline kidney function. I think this is due to persistent fluid retention. I imagine his actual baseline creatinine is more likely around 2.5. Patient is to be on maintenance diuretics, the dose of which needs to be determined while he is inpatient. No indication for any renal replacement therapy. (3) Proteinuria Is this a current diagnosis for this admission?: Yes Plan: Patient has nonnephrotic range proteinuria. He has normal albumin and lipid panel. So patient does not have any nephrotic syndrome. Will check protein electrophoresis. (4) Chronic atrial fibrillation Is this a current diagnosis for this admission?: Yes Plan: On anticoagulation with Eliquis. (5) Hypertension Qualifiers: Hypertension type: essential hypertension Qualified Code(s): I10 - Essential (primary) hypertension Is this a current diagnosis for this admission?: Yes Plan: Currently fairly controlled with current blood pressure medications. (6) Anemia in chronic kidney disease (CKD) Is this a current diagnosis for this admission?: Yes (7) Iron deficiency anemia Qualifiers: Iron deficiency anemia type: unspecified iron deficiency Qualified Code(s): D50.9 - Iron deficiency anemia, unspecified Is this a current diagnosis for this admission?: Yes Plan: Maintain patient on ferrous sulfate 325 mg p.o. daily. (8) Chronic kidney disease-mineral and bone disorder Is this a current diagnosis for this admission?: Yes Plan: In June the patient had a PTH of 116.8 and phosphorus of 4.9. Continue to monitor for now. - Notes Notes: Thank you very much for this consultation. - Time Time Spent: 50 to 70 Minutes
[2019-09-20] MEDS: ATORVASTATIN CALCIUM 20 MG TABLET PO SCH (21:43)
[2019-09-20] MEDS: INSULIN GLARGINE,HUM.REC.ANLOG 1,000 UNIT/10 ML VIAL SUBCUT SCH (23:00)
[2019-09-21 03:38] LABS: 24 HOUR URINE PROTEIN RESULT 3639 mg/day (42-225)
[2019-09-21] MEDS: PANTOPRAZOLE SODIUM 40 MG TABLET.DR PO SCH (05:13)
[2019-09-21] MEDS: HYDRALAZINE HCL 50 MG TABLET PO SCH (05:13)
[2019-09-21 06:11] LABS: ANION GAP 6 (5-19); BLOOD UREA NITROGEN 25 mg/dL (7-20); CARBON DIOXIDE 29 mmol/L (22-30); CHLORIDE 106 mmol/L (98-107); GLUCOSE 87 mg/dL (75-110); POTASSIUM 3.7 mmol/L (3.6-5.0)
[2019-09-21] MEDS: INSULIN REG, HUMAN 100 UNIT/ML 3 ML VIAL (PYX) SUBCUT SCH ×2 (07:34→12:39)
[2019-09-21] MEDS: GLIPIZIDE 5 MG TABLET PO SCH (07:51)
[2019-09-21] MEDS ORDERED: FUROSEMIDE INJ/PF 40 MG/4 ML SDV IV SCH (08:30)
--- NOTE | 2019-09-21 09:59 | RADIOLOGY REPORT (SQ) ---
EXAM DESCRIPTION: CHEST 2 VIEWS IMAGES COMPLETED DATE/TIME: 09/21/2019 9:48 am REASON FOR STUDY: chf COMPARISON: 09/16/2019 EXAM PARAMETERS: NUMBER OF VIEWS: two views TECHNIQUE: Digital Frontal and Lateral radiographic views of the chest acquired. RADIATION DOSE: NA LIMITATIONS: none FINDINGS: LUNGS AND PLEURA: Enlarged cardiac silhouette with bibasilar interstitial opacities, left greater than right. No overt alveolar edema. No pneumothorax. No significant effusion. MEDIASTINUM AND HILAR STRUCTURES: No discrete mass. HEART AND VASCULAR STRUCTURES: Enlarged cardiac silhouette with central vascular congestion. BONES: No acute findings. HARDWARE: None in the chest. OTHER: No other significant finding. IMPRESSION: Enlarged cardiac silhouette and central vascular congestion with likely mild interstitia l edema. No overt alveolar edema or significant effusion. TECHNICAL DOCUMENTATION: JOB ID: [id number] 2010 [employer]- All Rights Reserved Reading location - IP/workstation name: [email or web address]
[2019-09-21] MEDS ORDERED: FERROUS SULFATE 325 MG TABLET PO SCH (10:00)
[2019-09-21] MEDS: LOSARTAN POTASSIUM 25 MG TABLET PO SCH (10:55)
[2019-09-21] MEDS: FUROSEMIDE INJ/PF 40 MG/4 ML SDV IV SCH (10:56)
[2019-09-21] MEDS: CARVEDILOL 12.5 MG TABLET PO SCH (11:13)
[2019-09-21] MEDS: NIFEDIPINE 30 MG TAB.ER.24 PO SCH (11:14)
[2019-09-21] MEDS: APIXABAN 2.5 MG TABLET PO SCH (11:15)
[2019-09-21] MEDS: CEFTRIAXONE 1 GM/D5W RTU 1 GM/50 ML RTUPB IV SCH (11:15)
[2019-09-21] MEDS ORDERED: LOSARTAN POTASSIUM 25 MG TABLET PO SCH (11:30)
[2019-09-21 11:52] VITALS: BP 160/97
[2019-09-21] MEDS ORDERED: METOPROLOL SUCCINATE 25 MG TAB.SR.24H PO SCH (12:00)
--- NOTE | 2019-09-21 13:31 | PDOC PROGRESS REPORT ---
Subjective Progress Note for:: 09/21/19 Subjective:: Patient is doing well. He is feeling much better especially with the breathing. He thinks that his leg swelling is a slightly improving. He has made about 2250 mL of urine output for the past 24 hours and is -864 in terms of the intake and output balance. His 24-hour urine showed a volume of 3200 mL with protein of 3639 mg. His BNP is decreasing. He does not have any other further complaints. His repeat chest x-ray today showed mild interstitial edema and appears to be improved compared to previous. Reason For Visit: [email or web address] Physical Exam Vital Signs: Temp Pulse Resp BP Pulse Ox 97.5 F 95 20 160/97 H 98 09/21/19 12:42 09/21/19 12:42 09/21/19 12:42 09/21/19 12:42 09/21/19 12:42 Intake & Output 09/20/19 09/21/19 09/22/19 06:59 06:59 06:59 Intake Total 937 1386 350 Output Total 1225 2250 225 Balance -288 -864 125 Weight 115 kg 113.5 kg Exam: General appearance: PRESENT: no acute distress, cooperative, well-developed, well-nourished Head exam: PRESENT: atraumatic, normocephalic Eye exam: PRESENT: conjunctiva pink, PERRLA. ABSENT: scleral icterus Neck exam: ABSENT: JVD Respiratory exam: PRESENT: Normal breath sounds. ABSENT: crackles, rales, rhonchi, unlabored, wheezes Cardiovascular exam: PRESENT: Regular rate rhythm -+S1, +S2. ABSENT: diastolic murmur, systolic murmur GI/Abdominal exam: PRESENT: normal bowel sounds, soft. ABSENT: guarding, mass, tenderness Extremities exam: Grade 3 bilateral lower extremity pitting edema, difficult to say if it is actually improving Neurological exam: PRESENT: alert, awake, oriented to person, place and time. Skin exam: PRESENT: dry, warm, Results Laboratory Results: 09/19/19 05:25 09/21/19 05:11 09/20/19 09/21/19 02:45 05:11 Sodium 141.4 Potassium 3.7 Chloride 106 Carbon Dioxide 29 Anion Gap 6 BUN 25 H Creatinine 1.96 H Est GFR ( Amer) 43 L Glucose 87 Calcium 9.0 Phosphorus 4.0 Magnesium 2.2 Ur 24 Hour Volume 3220 Ur Total Protein 24 Hr 3639 H 09/16/19 09:39 Blood Blood Culture - Final NO GROWTH IN 5 DAYS 09/16/19 09:35 Blood Blood Culture - Final NO GROWTH IN 5 DAYS 09/16/19 09/16/19 09/16/19 09:35 09:35 15:20 Creatine Kinase 62 Troponin I 0.037 0.066 NT-Pro-B Natriuret Pep 7220 H 09/16/19 09/17/19 09/17/19 21:20 03:34 03:34 Creatine Kinase Troponin I 0.078 0.074 NT-Pro-B Natriuret Pep 81424 H 09/18/19 09/21/19 05:45 05:11 Creatine Kinase Troponin I NT-Pro-B Natriuret Pep 5590 H 4730 H Impressions: Chest CT 09/16/19 00:00 IMPRESSION: 1. Bilateral small effusions and cardiomegaly with probable edema. These findings suggest congestive failure. Superimposed viral pneumonia is also in the differential, depending on clinical presentation. Chest X-Ray 09/21/19 00:00 IMPRESSION: Enlarged cardiac silhouette and central vascular congestion with likely mild interstitial edema. No overt alveolar edema or significant effusion. Assessment & Plan - Diagnosis (1) Acute on chronic diastolic (congestive) heart failure Is this a current diagnosis for this admission?: Yes Plan: Dr. Ly is following the patient. He started the patient on low-dose losartan at 25 mg every 12 hours which is appropriate. Agree with increasing the furosemide to every 8 hours. (2) Chronic kidney disease, stage III (moderate) Is this a current diagnosis for this admission?: Yes Plan: Patient is non-oliguric and is currently with improved kidney function even better than usual baseline. This is associated with borderline nephrotic range proteinuria secondary to hypertensive nephrosclerosis and diabetic nephropathy. Patient does not require any renal replacement therapy at this time. Continue to monitor kidney function and electrolytes while being diuresed. (3) Proteinuria Is this a current diagnosis for this admission?: Yes Plan: 24-hour urine protein is about 3639 with corresponding urine protein to creatinine ratio of 2.5. Patient has normal albumin and lipid panel. This is due to patient's chronic kidney disease due to hypertension and diabetes as above. Agree with starting losartan for anti-proteinuric effect and cardiac benefit. (4) Chronic atrial fibrillation Is this a current diagnosis for this admission?: Yes Plan: On Eliquis. (5) Hypertension Qualifiers: Hypertension type: essential hypertension Qualified Code(s): I10 - Essential (primary) hypertension Is this a current diagnosis for this admission?: Yes Plan: Continue current medications. For optimal blood pressure control we need to optimize volume control is being currently done with diuretics. (6) Anemia in chronic kidney disease (CKD) Is this a current diagnosis for this admission?: Yes (7) Iron deficiency anemia Qualifiers: Iron deficiency anemia type: unspecified iron deficiency Qualified Code(s): D50.9 - Iron deficiency anemia, unspecified Is this a current diagnosis for this admission?: Yes Plan: Continue ferrous sulfate orally. (8) Chronic kidney disease-mineral and bone disorder Is this a current diagnosis for this admission?: Yes Plan: Phosphorus and calcium are within normal limits. Previous PTH was mildly elevated. Continue to monitor. - Notes Notes: Discussed the case with Dr. Ly. - Time Time with patient: 15-25 minutes
--- NOTE | 2019-09-21 22:35 | Progress Note ---
Provider Note Provider Note: CARDIOLOGY PROGRESS NOTE by Dr. Rimma Rubio on 09/21/2019. OBJECTIVE: The patient denies any chest pain or discomfort. There is no PND orthopnea or palpitations. He is continues to be in chronic A. fib with a heart rate in the 90s with 100s. His leg edema is resolved. His 24-hour urine protein analysis shows massive proteinuria in the nephrotic range. I have discussed this with the dry goods inspector who states that this is been a chronic issue and would recommend increasing the patient's ARB. Will increase the patient's Cozaar to 25 mg p.o. every 12 hours. Patient anxious to go home hence cardiac status is stable for discharge. There is no ventricular arrhythmia seen on the monitor. There is no bleeding on Eliquis. There is no TIA or CVA symptoms. PHYSICAL EXAMINATION: The patient is moderately obese in no acute distress. Selected Entries 09/21/19 07:25 Temperature 97.9 F Temperature Oral Source Pulse Rate 108 H Respiratory 18 Rate Blood Pressure 149/71 H Blood Pressure 97 Mean BP Location Right Arm BP Position Sitting O2 Sat by Pulse 100 Oximetry Oxygen Delivery Room Air Method Head: Is atraumatic normocephalic. EYES: Pupils are equal round regular reactive light accommodation. Extraocular movements are normal. There is no conjunctival pallor. There is no scleral icterus. EARS: Tympanic memories are intact. External auditory canals are clear. NOSE: There is no deviated nasal septum. There is no inflammation of the nasal mucous membrane. MOUTH: Mucous membranes of the mouth are moist. Tongue is moist. THROAT: There is no redness of the oropharynx. There is no exudates. SKIN: There is no skin rashes or skin lesions. There is no petechia or ecchymosis. NECK: Supple. There is no JVD. Carotids are equal there is no bruit. There is no lymphadenopathy. There is no goiter. There is no accessory muscle respiration use. Trachea central. LUNGS: There is diminished air entry prolonged expiration without any rhonchi rales or wheezing. Lungs are clear without rhonchi rales or wheezing. HEART: S1-S2 is heard. There is no S3 gallop. There is no S4 gallop. There is systolic murmur in the left sternal border and the apex there is no rub. ABDOMEN: Is soft. Nontender. There is no hepatosplenomegaly. Bowel sounds are well heard. There is no tender areas masses. EXTREMITIES: Femorals are diminished. There is no femoral bruits. Leg pulses are diminished. There is trace pedal edema. There is no DVT or cellulitis. There is no calf tenderness. PRINCIPAL ARCHAEOLOGIST: The patient is conscious awake oriented x3 with no focal deficits. PSYCHIATRIC:. Patient judgment insight are intact his affect is normal. Labs- All tests 24 hr 09/20/19 09/21/19 09/21/19 02:45 05:11 05:11 Sodium 141.4 Potassium 3.7 Chloride 106 Carbon Dioxide 29 Anion Gap 6 BUN 25 H Creatinine 1.96 H Est GFR ( Amer) 43 L Est GFR (MDRD) Non-Af 35 L Glucose 87 POC Glucose Calcium 9.0 Phosphorus 4.0 Magnesium 2.2 NT-Pro-B Natriuret Pep 4730 H Ur 24 Hour Volume 3220 Ur Total Protein 24 Hr 3639 H Urine Total Protein 113.0 H 09/21/19 09/21/19 07:27 11:40 Sodium Potassium Chloride Carbon Dioxide Anion Gap BUN Creatinine Est GFR ( Amer) Est GFR (MDRD) Non-Af Glucose POC Glucose 80 117 H Calcium Phosphorus Magnesium NT-Pro-B Natriuret Pep Ur 24 Hour Volume Ur Total Protein 24 Hr Urine Total Protein Chest CT 09/16/19 00:00 IMPRESSION: 1. Bilateral small effusions and cardiomegaly with probable edema. These findings suggest congestive failure. Superimposed viral pneumonia is also in the differential, depending on clinical presentation. Chest X-Ray 09/16/19 09:42 IMPRESSION: Patchy alveolar airspace disease most marked in the lung periphery. This could represent atypical pneumonia or atypical pattern of pulmonary edema. Chest X-Ray 09/21/19 00:00 IMPRESSION: Enlarged cardiac silhouette and central vascular congestion with likely mild interstitial edema. No overt alveolar edema or significant effusion. IMPRESSION/RECOMMENDATION: 1. Congestive heart failure most likely secondary to volume overload. And also nephrotic syndrome most likely. The heart failure is resolved and the patient back to baseline. 2. Significant proteinuria on urine exam. Urine protein is a nephrotic range proteinuria. Will increase the patient's ARB as discussed with the dry goods inspector. 3. Hypertension: Blood pressure well controlled. Continue current medication. 4. Diabetes mellitus: Continue current antidiabetic treatment and Accu-Cheks as per protocol. 5. Chronic atrial fibrillation: Continue current Coreg and Eliquis. 6. Chronic kidney disease stage III. Avoid nephrotoxic drugs. Medications reviewed. Medical regimen and management plan discussed with attending provider. Medical decision making is a moderate to high complexity, due to the increasing of the patient's losartan.. 40 minutes spent as patient with more than 50% time spent in direct patient care. Will follow.
[2019-09-22 17:36] LABS: A/G RATIO 0.9 (0.7-1.7); ALBUMIN 2 3.1 g/dL (2.9-4.4); ALPHA-2-GLOBULIN 2 1.1 g/dL (0.4-1.0); BETA GLOBULINS 0.8 g/dL (0.7-1.3); GAMMA GLOBULIN 1.3 g/dL (0.4-1.8); GLOBULIN TOTAL 3.5 g/dL (2.2-3.9); MONOCLONAL SPIKE Not Observed g/dL (Not Observ); PROTEIN TOTAL SERUM 6.6 g/dL (6.0-8.5)
--- NOTE | 2019-09-22 18:39 | PDOC DISCHARGE SUMMARY ---
Impression - Admit/DC Date/PCP Admission Date/Primary Care Provider: 09/16/19 16:06 ERMA DESIA Discharge Date: 09/21/19 - Discharge Diagnosis (1) Proteinuria Is this a current diagnosis for this admission?: Yes (2) CKD stage 4 due to type 2 diabetes mellitus Is this a current diagnosis for this admission?: Yes (3) Chronic atrial fibrillation Is this a current diagnosis for this admission?: Yes (4) Diabetes Is this a current diagnosis for this admission?: Yes (5) Pulmonary edema Is this a current diagnosis for this admission?: Yes (6) Respiratory distress Is this a current diagnosis for this admission?: Yes (7) Hypertension Is this a current diagnosis for this admission?: Yes - Assessment Summary: 09/20/2019 Temperature is 98 pulse erratic between 52 and 100, she has a history of atrial fib Blood pressure able approximately 150/80 Oxygen saturation between 96 and 100% now down to 2 L. Patient does not use home oxygen Recent CT scan of the chest shows no evidence of pneumonia Patient's creatinine appears to be stable at approximately 2, GFR of approximately 40 which is probably close to his baseline Patient's urine total protein is 259 which is elevated. Patient has seen nephrology in the past while in the hospital. I have consulted nephrology concerning his proteinuria and is renal functions. Nursing is going to try to wean patient off of his oxygen see what his saturations are all on room air Patient's last dose of IV Rocephin was today Patient currently taking Lasix 40 mg IV every 12 hours. According to the chart patient was supposed to be taking 40 mg p.o. twice daily prior to admission although I am not certain he was taking this medicine 09/21/2019 Temperature 97.9 pulse is 108, does go down to 83 at times Blood pressure 149/71 O2 sat 100% on room air CBC is stable Chemistry shows BUN of 25 creatinine 1.96 or slightly improved , BNP is 4730, down from a high of 13 200 This x-ray on 09 20 showed a cardiomegaly with vascular congestion and mild interstitial edema no alveolar edema Neurology saw the patient today and felt that the patient was safe to be discharged and was back at his baseline concerning his heart failure Patient's ARB was increased Patient will be discharged home on his Coreg and Joannis Also discharged home on his Cozaar 25 mg twice daily Lasix 40 mg 3 times daily and Toprol XL 25 mg twice daily Follow-up with nephrology as well as cardiology as well as primary care. Patient is having only minimal shortness of breath at time of discharge - Additional Information Resuscitation Status: Full Code Discharge Diet: Cardiac, Diabetic Discharge Activity: Activity As Tolerated, Balance Activity w/Rest, Other Referrals: SERGIO CASTRO MD [ACTIVE STAFF] - (Office will call patient with appointment after they speak with Dr. Castro. myh/4.1.20) ERMA DESAI MD [Primary Care Provider] - 09/28/19 1:45 pm DORA HOWE MD [ACTIVE STAFF] - 09/28/19 3:15 pm Prescriptions: Losartan Potassium [Cozaar 25 mg Tablet] 25 mg PO BID 30 Days #60 tablet Furosemide [Lasix 40 mg Tablet] 40 mg PO QAM #30 tablet Furosemide [Lasix 40 mg Tablet] 40 mg PO TID 30 Days #90 tablet Metoprolol Succinate [Toprol Xl 25 mg Tab.sr] 25 mg PO BID 30 Days #60 tab.sr.24h Home Medications: Apixaban [Eliquis 2.5 mg Tablet] 2.5 mg PO BID #60 tablet 04/23/18 Atorvastatin Calcium [Lipitor 20 mg Tablet] 20 mg PO QHS #30 tablet 04/23/18 Glipizide [Glucotrol 5 mg Tablet] 2.5 mg PO BIDACBS #30 tablet 07/15/19 Hydralazine HCl 100 mg PO Q8 1 Days #90 tablet 07/15/19 Insulin Glargine,Hum.rec.anlog [Lantus Insulin 100 Unit/mL Insulin Pen] 10 unit SUBCUT QHS #10 ml 07/15/19 Nifedipine [Nifedipine ER] 90 mg PO DAILY #30 tablet.er 07/15/19 Acetaminophen [Tylenol 325 mg Tablet] 650 mg PO Q4HP PRN tablet 09/21/19 Carvedilol [Coreg 12.5 mg Tablet] 37.5 mg PO Q12 tablet 09/21/19 Ferrous Sulfate [Feosol 325 mg Tablet] 325 mg PO DAILY tablet 09/21/19 Furosemide [Lasix 40 mg Tablet] 40 mg PO QAM #30 tablet 09/21/19 Furosemide [Lasix 40 mg Tablet] 40 mg PO TID 30 Days #90 tablet 09/21/19 Hydralazine HCl [Apresoline 50 mg Tablet] 100 mg PO Q8 tablet 09/21/19 Losartan Potassium [Cozaar 25 mg Tablet] 25 mg PO BID 30 Days #60 tablet 09/21/19 Losartan Potassium [Cozaar 25 mg Tablet] 25 mg PO Q12 tablet 09/21/19 Metoprolol Succinate [Toprol Xl 25 mg Tab.sr] 25 mg PO BID 30 Days #60 tab.sr.24h 09/21/19 Metoprolol Succinate [Toprol Xl 25 mg Tab.sr] 25 mg PO Q12 tab.sr.24h 09/21/19 Nifedipine [Procardia XL 30 mg Tablet] 90 mg PO DAILY tab.er.24 09/21/19 History of Present Illiness History of Present Illness: CATHY HALL is a 59 year old male Physical Exam Vital Signs: Temp Pulse Resp BP Pulse Ox 97.5 F 95 20 160/97 H 98 09/21/19 12:42 09/21/19 12:42 09/21/19 12:42 09/21/19 12:42 09/21/19 12:42 Intake & Output 09/21/19 09/22/19 09/23/19 06:59 06:59 06:59 Intake Total 1386 350 Output Total 2250 225 Balance -864 125 Weight 113.5 kg Results Laboratory Results: WBC 7.5 10^3/uL (4.0-10.5) 09/19/19 05:25 RBC 4.31 10^6/uL (4.35-5.55) L 09/19/19 05:25 Hgb 11.0 g/dL (13.5-17.0) L 09/19/19 05:25 Hct 33.2 % (37.9-51.0) L 09/19/19 05:25 MCV 77 fl (80-97) L 09/19/19 05:25 MCH 25.5 pg (27.0-33.4) L 09/19/19 05:25 MCHC 33.2 g/dL (32.0-36.0) 09/19/19 05:25 RDW 18.1 % (11.5-14.0) H 09/19/19 05:25 Plt Count 245 10^3/uL (150-450) 09/19/19 05:25 Lymph % (Auto) 13.6 % (13-45) 09/19/19 05:25 [place] % (Auto) 7.7 % (3-13) 09/19/19 05:25 Eos % (Auto) 2.6 % (0-6) 09/19/19 05:25 Baso % (Auto) 0.6 % (0-2) 09/19/19 05:25 Absolute Neuts (auto) 5.7 10^3/uL (1.7-8.2) 09/19/19 05:25 Absolute Lymphs (auto) 1.0 10^3/uL (0.5-4.7) 09/19/19 05:25 Absolute Monos (auto) 0.6 10^3/uL (0.1-1.4) 09/19/19 05:25 Absolute Eos (auto) 0.2 10^3/uL (0.0-0.6) 09/19/19 05:25 Absolute Basos (auto) 0.0 10^3/uL (0.0-0.2) 09/19/19 05:25 Total Counted 100 09/17/19 03:34 Seg Neutrophils % 75.5 % (42-78) 09/19/19 05:25 Seg Neuts % (Manual) 84 % (42-78) H 09/17/19 03:34 Lymphocytes % (Manual) 6 % (13-45) L 09/17/19 03:34 Monocytes % (Manual) 10 % (3-13) 09/17/19 03:34 Eosinophils % (Manual) 0 % (0-6) 09/17/19 03:34 Basophils % (Manual) 0 % (0-2) 09/17/19 03:34 Abs Neuts (Manual) 8.1 10^3/uL (1.7-8.2) 09/17/19 03:34 Abs Lymphs (Manual) 0.6 10^3/uL (0.5-4.7) 09/17/19 03:34 Abs Monocytes (Manual) 1.0 10^3/uL (0.1-1.4) 09/17/19 03:34 Absolute Eos (Manual) 0.0 10^3/uL (0.0-0.6) 09/17/19 03:34 Abs Basophils (Manual) 0.0 10^3/uL (0.0-0.2) 09/17/19 03:34 Toxic Granulation 1+ 09/17/19 03:34 Toxic Vacuolation PRESENT 09/17/19 03:34 Platelet Comment ADEQUATE 09/17/19 03:34 Hypochromasia SLIGHT 09/16/19 09:35 Poikilocytosis 1+ 09/17/19 03:34 Anisocytosis 1+ 09/17/19 03:34 Microcytosis SLIGHT 09/16/19 09:35 Tear Drop Cells 1+ 09/17/19 03:34 Ovalocytes 1+ 09/17/19 03:34 [place] Cells SLIGHT 09/17/19 03:34 Carbonic Acid 1.00 mmol/L (1.05-1.35) L 09/17/19 05:12 HCO3/H2CO3 Ratio 23:1 09/17/19 05:12 ABG pH 7.46 (7.35-7.45) H 09/17/19 05:12 ABG pCO2 33.2 mmHg (35-45) L 09/17/19 05:12 ABG pO2 52.3 mmHg (80-100) L 09/17/19 05:12 ABG HCO3 23.1 mmol/L (20-24) 09/17/19 05:12 ABG Total CO2 24.2 mmol/L (23-27) 09/17/19 05:12 ABG O2 Saturation 89.2 % (94-98) L 09/17/19 05:12 ABG Base Excess -0.1 mmol/L 09/17/19 05:12 FiO2 32% 09/17/19 05:12 Sodium 141.4 mmol/L (137-145) 09/21/19 05:11 Potassium 3.7 mmol/L (3.6-5.0) 09/21/19 05:11 Chloride 106 mmol/L (98-107) 09/21/19 05:11 Carbon Dioxide 29 mmol/L (22-30) 09/21/19 05:11 Anion Gap 6 (5-19) 09/21/19 05:11 BUN 25 mg/dL (7-20) H 09/21/19 05:11 Creatinine 1.96 mg/dL (0.52-1.25) H 09/21/19 05:11 Est GFR ( Amer) 43 (>60) L 09/21/19 05:11 Est GFR (MDRD) Non-Af 35 (>60) L 09/21/19 05:11 Glucose 87 mg/dL (75-110) 09/21/19 05:11 POC Glucose 117 mg/dL (70-110) H 09/21/19 11:40 Hemoglobin A1c % 6.6 % (4.7-6.0) H 09/17/19 03:34 Calcium 9.0 mg/dL (8.4-10.2) 09/21/19 05:11 Phosphorus 4.0 mg/dL (2.5-4.5) 09/21/19 05:11 Magnesium 2.2 mg/dL (1.6-2.3) 09/21/19 05:11 Total Bilirubin 1.4 mg/dL (0.2-1.3) H 09/19/19 05:25 Direct Bilirubin 0.1 mg/dL (0.0-0.4) 09/19/19 05:25 Neonat Total Bilirubin Not Reportable 09/19/19 05:25 Neonat Direct Bilirubin Not Reportable 09/19/19 05:25 Neonat Indirect Bili Not Reportable 09/19/19 05:25 AST 16 U/L (17-59) L 09/19/19 05:25 ALT 18 U/L (<50) 09/19/19 05:25 Alkaline Phosphatase 55 U/L (38-126) 09/19/19 05:25 Creatine Kinase 62 U/L (55-170) 09/16/19 09:35 Troponin I 0.074 ng/mL 09/17/19 03:34 NT-Pro-B Natriuret Pep 4730 pg/mL (<125) H 09/21/19 05:11 Total Protein 6.4 g/dL (6.3-8.2) 09/19/19 05:25 Albumin 3.5 g/dL (3.5-5.0) 09/19/19 05:25 Triglycerides 45 mg/dL (<150) 09/17/19 03:34 Cholesterol 143.25 mg/dL (0-200) 09/17/19 03:34 LDL Cholesterol Direct 83 mg/dL (<100) 09/17/19 03:34 VLDL Cholesterol 9.0 mg/dL (10-31) L 09/17/19 03:34 HDL Cholesterol 53 mg/dL (>40) 09/17/19 03:34 TSH 0.36 uIU/mL (0.47-4.68) L 09/17/19 03:34 Urine Color YELLOW 09/16/19 11:00 Urine Appearance SLIGHTLY-CLOUDY 09/16/19 11:00 Urine pH 7.0 (5.0-9.0) 09/16/19 11:00 Ur Specific [place] 1.014 09/16/19 11:00 Urine Protein >=500 mg/dL (NEGATIVE) H 09/16/19 11:00 Urine Glucose (UA) 50 mg/dL (NEGATIVE) H 09/16/19 11:00 Urine Ketones NEGATIVE mg/dL (NEGATIVE) 09/16/19 11:00 Urine Blood NEGATIVE (NEGATIVE) 09/16/19 11:00 Urine Nitrite NEGATIVE (NEGATIVE) 09/16/19 11:00 Urine Bilirubin NEGATIVE (NEGATIVE) 09/16/19 11:00 Urine Urobilinogen NEGATIVE mg/dL (<2.0) 09/16/19 11:00 Ur Leukocyte Esterase NEGATIVE (NEGATIVE) 09/16/19 11:00 Urine WBC (Auto) 4 /HPF 09/16/19 11:00 Urine RBC (Auto) 3 /HPF 09/16/19 11:00 Urine Bacteria (Auto) TRACE /HPF 09/16/19 11:00 Squamous Epi Cells Auto <1 /HPF 09/16/19 11:00 Urine Mucus (Auto) RARE /LPF 09/16/19 11:00 Ur 24 Hour Volume 3220 mL 09/20/19 02:45 Urine Creatinine 104.6 mg/dL (22-328) 09/20/19 02:28 Ur Total Protein 24 Hr 3639 mg/day (42-225) H 09/20/19 02:45 Protein/Creatinin Ratio 2.5 mg/mg (0.0-0.2) H 09/20/19 02:28 Urine Total Protein 113.0 mg/dL (<12) H 09/20/19 02:45 Urine Ascorbic Acid NEGATIVE (NEGATIVE) 09/16/19 11:00 Urine Opiates Screen NEGATIVE 09/16/19 11:00 Urine Methadone Screen NEGATIVE 09/16/19 11:00 Ur Barbiturates Screen NEGATIVE 09/16/19 11:00 Ur Phencyclidine Scrn NEGATIVE 09/16/19 11:00 Ur Amphetamines Screen NEGATIVE 09/16/19 11:00 U Benzodiazepines Scrn NEGATIVE 09/16/19 11:00 Urine Cocaine Screen NEGATIVE 09/16/19 11:00 U Marijuana (THC) Screen NEGATIVE 09/16/19 11:00 Influenza A (Rapid) NEGATIVE (NEGATIVE) 09/16/19 13:10 Influenza B (Rapid) NEGATIVE (NEGATIVE) 09/16/19 13:10 09/16/19 09/16/19 09/16/19 09:35 15:20 21:20 Troponin I 0.037 0.066 0.078 NT-Pro-B Natriuret Pep 7220 H 09/17/19 09/17/19 09/18/19 03:34 03:34 05:45 Troponin I 0.074 NT-Pro-B Natriuret Pep 41847 H 5590 H 09/21/19 05:11 Troponin I NT-Pro-B Natriuret Pep 4730 H Impressions: Chest CT 09/16/19 00:00 IMPRESSION: 1. Bilateral small effusions and cardiomegaly with probable edema. These findings suggest congestive failure. Superimposed viral pneumonia is also in the differential, depending on clinical presentation. Chest X-Ray 09/16/19 09:42 IMPRESSION: Patchy alveolar airspace disease most marked in the lung periphery. This could represent atypical pneumonia or atypical pattern of pulmonary edema. Chest X-Ray 09/21/19 00:00 IMPRESSION: Enlarged cardiac silhouette and central vascular congestion with likely mild interstitial edema. No overt alveolar edema or significant effusion. Stroke Is this a Stroke Patient?: No Acute Heart Failure - Is this a Heart Failure Patient?: Yes Documentation of LVEF assessment?: No, Document reason - To be done by cardiology as an outpatient LVEF < 40%?: No- if no continue to question #3 b) Discharges on ARB?: Yes 3. Anticoagulant therapy for permanect/persistent/paraoxysmal Afib or Aflutter: Yes
== END 2019-09-21 12:30 | disposition home or self-care (01) | DRG 291 ==
LOC: ER 09:24 → EH 16:06 → 3S 18:57
PROVIDERS: ADMIT Internal Medicine; ATTEND Physician Assistant
PROC: 5A09557 Assistance with Respiratory Ventilation, Greater than 96 Consecutive Hours, Continuous Positive Airway Pressure (ICD-10-PCS; principal; 2019-09-16)
DX: I13.0 Hypertensive heart and chronic kidney disease with heart failure and stage 1 through stage 4 chronic kidney disease, or unspecified chronic kidney disease (principal); I50.43 Acute on chronic combined systolic (congestive) and diastolic (congestive) heart failure; J18.9 Pneumonia, unspecified organism; J81.0 Acute pulmonary edema; I48.20 Chronic atrial fibrillation, unspecified; N18.4 Chronic kidney disease, stage 4 (severe); Z68.41 Body mass index [BMI] 40.0-44.9, adult; E78.5 Hyperlipidemia, unspecified; E11.22 Type 2 diabetes mellitus with diabetic chronic kidney disease; E83.39 Other disorders of phosphorus metabolism; E21.1 Secondary hyperparathyroidism, not elsewhere classified; D63.1 Anemia in chronic kidney disease; E66.01 Morbid (severe) obesity due to excess calories; I49.3 Ventricular premature depolarization; Z79.01 Long term (current) use of anticoagulants; Z79.4 Long term (current) use of insulin; Z79.899 Other long term (current) drug therapy; Z95.1 Presence of aortocoronary bypass graft; Z95.0 Presence of cardiac pacemaker; Z95.2 Presence of prosthetic heart valve
CPT/HCPCS: 36415; 36600; 71045; 71046; 71250; 80048; 80053; 80061; 80307; 81001; 82550; 82570; 82803; 82962; 83036; 83735; 83880; 84100; 84156; 84165; 84443; 84484; 85025; 87040; 87804; 93005; 93010; 94640; 94660; 96365; 96375; 96376; 99291; J0360; J0696; J1815; J1940; J2060; J3490; J7620

== ENCOUNTER 2019-10-04 10:45 | Inpatient (IN) | payer BC ==
--- NOTE | 2019-10-04 11:18 | ER Document Report ---
ED General - General Chief Complaint: Near Syncope Stated Complaint: POSSIBLE SYNCOPE Time Seen by Provider: 10/04/19 11:05 Mode of Arrival: Medic Information source: Patient TRAVEL OUTSIDE OF THE [place] IN LAST 30 DAYS: No - HPI Onset: Other - over the last several days Onset/Duration: Gradual Quality of pain: No pain Severity: Moderate Pain Level: Denies Associated symptoms: Nausea, Vomiting, Other - Dizziness Exacerbated by: Standing Relieved by: Other - laying down Similar symptoms previously: No Recently seen / treated by doctor: Yes - patient was just discharged at beginning of month for heart failure Notes: 59 year old male with a history of AFib, CHF, CKD, HTN, HLD, DM here in the ER dizziness and passing out. The patient was recently admitted for heart failure and he had Metolazone added to his list of medications which includes multiple HTN medications. The patient is followed by Dr. Crystal of Cardiology. The patient says he has lost 20-30lbs in water weight over the last several weeks. The patient denies urinary symptoms, cough, congestion, shortness of breath, fevers, chills, sweats, chest pain, abdominal pain, headache. - Related Data Allergies/Adverse Reactions: No Known Allergies Allergy (Verified 04/20/18 11:04) Past Medical History - General Information source: Patient - Social History Smoking Status: Unknown if Ever Smoked Chew tobacco use (# tins/day): No Frequency of alcohol use: None Drug Abuse: None Family History: None, Reviewed & Not Pertinent Patient has suicidal ideation: No Patient has homicidal ideation: No - Past Medical History Cardiac Medical History: Reports: Hx Atrial Fibrillation, Hx Congestive Heart Failure, Hx Hypercholesterolemia, Hx Hypertension Pulmonary Medical History: Reports: Hx Sleep Apnea - Patient underwent an incomplete sleep study at [facility] recently. Denies: Hx Tuberculosis Endocrine Medical History: Reports: Hx Diabetes Mellitus Type 1, Hx Diabetes Mellitus Type 2 Renal/ Medical History: Denies: Hx Peritoneal Dialysis Psychiatric Medical History: Denies: Hx Depression Past Surgical History: Denies: Hx Appendectomy, Hx Bowel Surgery, Hx Cholecyste ctomy, Hx Coronary Artery Bypass Graft, Hx Gastric Bypass Surgery, Hx Herniorrhaphy, Hx Internal Defibrillator, Hx Pacemaker, Hx Tonsillectomy, Hx Valve Replacement, Hx Vascular Surgery - Immunizations Hx Diphtheria, Pertussis, Tetanus Vaccination: Yes Physical Exam - Vital signs Vitals: Resp Pulse Ox 10 L 97 10/04/19 11:13 10/04/19 11:13 - Notes Notes: GENERAL: Well-appearing, well-nourished and in no acute distress. HEAD: Atraumatic, normocephalic. EYES: Pupils equal round and reactive to light, extraocular movements intact, sclera anicteric, conjunctiva are normal. ENT: Nares patent, oropharynx clear without exudates. Moist mucous membranes. NECK: Normal range of motion, supple without lymphadenopathy or JVD. LUNGS: Breath sounds clear to auscultation bilaterally and equal. No wheezes rales or rhonchi. HEART: Regular rate and rhythm without murmurs, rubs or gallops. ABDOMEN: Soft, nontender, normoactive bowel sounds. No guarding, no rebound. No masses appreciated. EXTREMITIES: Normal range of motion, no pitting or edema. No clubbing or cyanosis. NEUROLOGICAL: Cranial nerves II through XII grossly intact. Normal speech, normal gait. PSYCH: Normal mood, normal affect. SKIN: Warm, Dry, normal turgor, no rashes or lesions noted. Course - Re-evaluation Re-evalutation: 10/04/19 12:22 The patient is hypotensive and his labs are consistent with being over diuresed from his recent admission for CHF. I spoke with the patient's Voice Over Artist Dr. Brian jang and he would like the patient admitted so that he and the ferryboat pilot can sort out his medication regimen. The patient was treated with gentle IV fluids in the ER and his K was supped. Patient is orthostatic and has acute on chronic kidney injury. - Vital Signs Vital signs: Temp Pulse Resp BP Pulse Ox 98.2 F 22 H 98/68 L 96 10/04/19 11:14 10/04/19 11:14 10/04/19 11:14 10/04/19 11:14 - Laboratory Result Diagrams: 10/04/19 10:45 10/04/19 10:45 Laboratory results interpreted by me: 10/04/19 10/04/19 10/04/19 10:45 10:45 10:45 Hgb 12.0 L Hct 35.7 L MCV 76 L MCH 25.8 L RDW 17.9 H Eos % (Auto) 7.8 H Sodium 132.8 L Potassium 2.7 L* Chloride 84 L Carbon Dioxide 39 H BUN 50 H Creatinine 3.24 H Est GFR ( Amer) 24 L Est GFR (MDRD) Non-Af 20 L Glucose 245 H NT-Pro-B Natriuret Pep 3610 H - EKG Interpretation by Me EKG shows normal: [place] Rhythm: A.Fib - LVH, T wave inversions in V5, V6 When compared to previous EKG there are: No significant change Discharge - Discharge Clinical Impression: Hypokalemia Hypotension Qualifiers: Hypotension type: unspecified hypotension type Qualified Code(s): I95.9 - Hypotension, unspecified Kidney injury Qualifiers: Encounter type: subsequent encounter Laterality: unspecified laterality Qualified Code(s): S37.009D - Unspecified injury of unspecified kidney, subsequent encounter Condition: Stable Disposition: ADMITTED INPATIENT Admitting Provider: Mari (Hospitalist) Unit Admitted: Telemetry
[2019-10-04 11:23] LABS: ABSOLUTE BASOPHILS # (AUTO) 0.1 10^3/uL (0.0-0.2); ABSOLUTE EOSINOPHILS # (AUTO) 0.3 10^3/uL (0.0-0.6); ABSOLUTE LYMPHOCYTES (AUTO) 1.2 10^3/uL (0.5-4.7); ABSOLUTE MONOCYTES (AUTO) 0.4 10^3/uL (0.1-1.4); ABSOLUTE NEUT (AUTO) 2.1 10^3/uL (1.7-8.2); ALBUMIN 3.8 g/dL (3.5-5.0); ALKALINE PHOSPHATASE 54 U/L (38-126); ANION GAP 10 (5-19); ASPARTATE AMINO TRANSFERASE 27 U/L (17-59); BILIRUBIN,TOTAL 0.7 mg/dL (0.2-1.3); BLOOD UREA NITROGEN 50 mg/dL (7-20); CALCIUM 9.5 mg/dL (8.4-10.2); CARBON DIOXIDE 39 mmol/L (22-30); CHLORIDE 84 mmol/L (98-107); CREATINE KINASE 65 U/L (55-170); EOSINOPHILS % (AUTO) 7.8 % (0-6); GLUCOSE 245 mg/dL (75-110); HEMATOCRIT 35.7 % (37.9-51.0); LYMPHOCYTES % (AUTO) 28.3 % (13-45); MEAN CORPUSCULAR HEMOGLOBIN 25.8 pg (27.0-33.4); MEAN CORPUSCULAR HGB CONC 33.7 g/dL (32.0-36.0); MEAN CORPUSCULAR VOLUME 76 fl (80-97); MONOCYTES % (AUTO) 10.2 % (3-13); PLATELET COUNT 372 10^3/uL (150-450); RED BLOOD COUNT 4.67 10^6/uL (4.35-5.55); RED CELL DISTRIBUTION WIDTH 17.9 % (11.5-14.0); SEGMENTED NEUTROPHILS % (AUTO) 51.7 % (42-78); TOTAL CELLS COUNTED % (AUTO) 100 %; WHITE BLOOD COUNT 4.1 10^3/uL (4.0-10.5)
[2019-10-04] MEDS ORDERED: ONDANSETRON HCL INJ/PF 4 MG/2 ML SDV IV ONE (11:27)
[2019-10-04 11:28] LABS: POTASSIUM 2.7 mmol/L (3.6-5.0)
[2019-10-04] MEDS ORDERED: NORMAL SALINE 500 ML IV ONE (11:28)
[2019-10-04 11:35] LABS: CREATINE KINASE MB 0.23 ng/mL (<4.55)
[2019-10-04 11:37] LABS: TROPONIN I 0.064 ng/mL
[2019-10-04] MEDS ORDERED: POTASSIUM CHLORIDE 20 MEQ PACKET PO ONE (11:39)
[2019-10-04] MEDS ORDERED: MAG HYDROX/AL HYDROX/SIMETH SUSP 30 ML UDCUP PO PRN (13:27)
[2019-10-04] MEDS ORDERED: MAGNESIUM HYDROXIDE SUSP 30 ML UDCUP PO PRN (13:27)
[2019-10-04] MEDS ORDERED: ONDANSETRON HCL INJ/PF 4 MG/2 ML SDV IV PRN (13:27)
[2019-10-04] MEDS ORDERED: ACETAMINOPHEN 325 MG TABLET PO PRN (13:27)
[2019-10-04] MEDS ORDERED: ONDANSETRON 4 MG TAB.RAPDIS PO PRN (13:27)
[2019-10-04] MEDS ORDERED: TEMAZEPAM 7.5 MG CAPSULE PO PRN (13:27)
[2019-10-04] MEDS ORDERED: GLUCAGON,HUMAN RECOMB 1 MG INJ IM PRN (13:54)
[2019-10-04] MEDS ORDERED: DEXTROSE 50%-WATER 25 GM/50 ML DISP.SYRIN IV PRN ×2 (13:54)
[2019-10-04] MEDS ORDERED: DEXTROSE 40% GEL 15 GM TUBE PO PRN ×2 (13:54)
[2019-10-04 13:58] LABS: INTERNATIONAL RATION (INR) 1.16; PROTHROMBIN TIME 14.9 SEC (11.4-15.4)
[2019-10-04] MEDS ORDERED: POTASSI CL 20 MEQ/50 ML RIDER 20 MEQ/50 ML RTUPB IV SCH (14:00)
--- NOTE | 2019-10-04 14:01 | PDOC H&P ---
History of Present Illness Admission Date/PCP: 10/04/19 12:13 ERMA DESAI History of Present Illness: CATHY HALL is a 59 year old male admitted through the emergency room with a 1 day history of syncope.. Patient states that yesterday he had 2 separate episodes where he got weak and lightheaded but never lost consciousness. 1 episode similar today.. Patient was just discharged home from the hospital on 09/16/2019 [facility] for atrial fib and congestive heart failure. Patient actually saw cardiology last week and was doing well. Ever his primary care provider increased some of his medications since then, yesterday he had his syncopal episodes. Patient denies chest pain or shortness of breath. Patient states he is lost about 20 pounds since he was discharged 14 days ago. Patient appears to be in no distress at this time is able to speak in full sentences. Patient is going to be admitted to the hospital for short time for medication adjustment and further diagnostic studies. Patient will be seen in consultation by cardiology and nephrology. Past Medical History Cardiac Medical History: Reports: Atrial Fibrillation, Congestive Heart Failure, Hyperlipidema, Hypertension Pulmonary Medical History: Reports: Sleep Apnea - Patient underwent an incomplete sleep study at [facility] recently. Denies: Tuberculosis Endocrine Medical History: Reports: Diabetes Mellitus Type 1, Diabetes Mellitus Type 2 Psychiatric Medical History: Denies: Depression Past Surgical History Past Surgical History: Denies: Appendectomy, Cholecystectomy, Coronary Artery Bypass Graft, Gastric Bypass Surgery, Herniorrhaphy, Internal Defibrillator, Pacemaker, Tonsillectomy, Valve Replacement, Vascular Surgery Social History Smoking Status: Unknown if Ever Smoked Electronic Cigarette use?: No Frequency of Alcohol Use: None Hx Recreational Drug Use: No Drugs: None Hx Prescription Drug Abuse: No - Advance Directive Resuscitation Status: Full Code Family History Family History: None, Reviewed & Not Pertinent Parental Family History Reviewed: No Children Family History Reviewed: No Sibling(s) Family History Reviewed.: No Medication/Allergy Home Medications: Apixaban [Eliquis 2.5 mg Tablet] 2.5 mg PO BID #60 tablet 04/23/18 Atorvastatin Calcium [Lipitor 20 mg Tablet] 20 mg PO QHS #30 tablet 04/23/18 Glipizide [Glucotrol 5 mg Tablet] 2.5 mg PO BIDACBS #30 tablet 07/15/19 Hydralazine HCl 100 mg PO Q8 1 Days #90 tablet 07/15/19 Insulin Glargine,Hum.rec.anlog [Lantus Insulin 100 Unit/mL Insulin Pen] 10 unit SUBCUT QHS #10 ml 07/15/19 Nifedipine [Nifedipine ER] 90 mg PO DAILY #30 tablet.er 07/15/19 Acetaminophen [Tylenol 325 mg Tablet] 650 mg PO Q4HP PRN tablet 09/21/19 Carvedilol [Coreg 12.5 mg Tablet] 37.5 mg PO Q12 tablet 09/21/19 Ferrous Sulfate [Feosol 325 mg Tablet] 325 mg PO DAILY tablet 09/21/19 Furosemide [Lasix 40 mg Tablet] 40 mg PO QAM #30 tablet 09/21/19 Furosemide [Lasix 40 mg Tablet] 40 mg PO TID 30 Days #90 tablet 09/21/19 Hydralazine HCl [Apresoline 50 mg Tablet] 100 mg PO Q8 tablet 09/21/19 Losartan Potassium [Cozaar 25 mg Tablet] 25 mg PO BID 30 Days #60 tablet 09/21/19 Losartan Potassium [Cozaar 25 mg Tablet] 25 mg PO Q12 tablet 09/21/19 Metoprolol Succinate [Toprol Xl 25 mg Tab.sr] 25 mg PO BID 30 Days #60 tab.sr.24h 09/21/19 Metoprolol Succinate [Toprol Xl 25 mg Tab.sr] 25 mg PO Q12 tab.sr.24h 09/21/19 Nifedipine [Procardia XL 30 mg Tablet] 90 mg PO DAILY tab.er.24 09/21/19 Allergies/Adverse Reactions: No Known Allergies Allergy (Verified 04/20/18 11:04) Review of Systems Constitutional: PRESENT: as per HPI, weakness Cardiovascular: ABSENT: chest pain, dyspnea on exertion, edema, orthropnea, palpitations Respiratory: ABSENT: cough, hemoptysis Neurological: ABSENT: abnormal gait, abnormal speech, confusion, dizziness, focal weakness, syncope Psychiatric: ABSENT: anxiety, depression, homidical ideation, suicidal ideation Physical Exam Vital Signs: Temp Pulse Resp BP Pulse Ox 98.2 F 17 107/66 92 10/04/19 11:14 10/04/19 13:01 10/04/19 13:01 10/04/19 13:01 Intake & Output 10/03/19 10/04/19 10/05/19 06:59 06:59 06:59 Intake Total 500 Balance 500 Weight 100.2 kg General appearance: PRESENT: no acute distress Respiratory exam: PRESENT: clear to auscultation farooq. ABSENT: rales, rhonchi, wheezes Cardiovascular exam: PRESENT: RRR. ABSENT: diastolic murmur, rubs, systolic murmur Extremities exam: PRESENT: +1 edema Neurological exam: PRESENT: alert, awake, oriented to person, oriented to place, oriented to time, oriented to situation, CN II-XII grossly intact. ABSENT: motor sensory deficit Psychiatric exam: PRESENT: appropriate affect, normal mood. ABSENT: homicidal ideation, suicidal ideation Results Laboratory Results: 10/04/19 10:45 10/04/19 10:45 10/04/19 10/04/19 10/04/19 10:45 10:45 10:45 WBC 4.1 RBC 4.67 Hgb 12.0 L Hct 35.7 L MCV 76 L MCH 25.8 L MCHC 33.7 RDW 17.9 H Plt Count 372 Seg Neutrophils % 51.7 Sodium 132.8 L Potassium 2.7 L* Chloride 84 L Carbon Dioxide 39 H Anion Gap 10 BUN 50 H Creatinine 3.24 H Est GFR ( Amer) 24 L Glucose 245 H Calcium 9.5 Magnesium 2.2 Total Bilirubin 0.7 AST 27 Alkaline Phosphatase 54 Total Protein 7.0 Albumin 3.8 10/04/19 10/04/19 10/04/19 10:45 10:45 10:45 Creatine Kinase 65 CK-MB (CK-2) 0.23 Troponin I 0.064 NT-Pro-B Natriuret Pep 3610 H Assessment and Plan - Diagnosis (1) Hypokalemia Is this a current diagnosis for this admission?: Yes (2) Hypotension Qualifiers: Hypotension type: unspecified hypotension type Qualified Code(s): I95.9 - Hypotension, unspecified Is this a current diagnosis for this admission?: Yes (3) Abnormal electrocardiogram Is this a current diagnosis for this admission?: Yes (4) Acute hyperglycemia Is this a current diagnosis for this admission?: Yes (5) Acute kidney injury superimposed on chronic kidney disease Is this a current diagnosis for this admission?: Yes (6) Diabetes Is this a current diagnosis for this admission?: Yes (7) Elevated troponin I level Is this a current diagnosis for this admission?: Yes (8) Paroxysmal atrial fibrillation Is this a current diagnosis for this admission?: Yes - Plan Summary Summary: Patient will be admitted to the hospital for adjustment of his medications. Lungs are actually clear to auscultation he only has minimal 1+ pitting edema of his extremities. No chest x-ray has been performed yet although this is been ordered. BNP is actually lower than when discharged today it is 3610, he was discharged 14 days ago it was 4730 and trending down. I believe patient became weak and lightheaded as a result of his medications, potentially bradyed down, and or became hypotensive. I do not think patient is in congestive heart failure at this time. Patient is stable in the emergency room, and in no distress Cardiology and nephrology will be consulted - Time Time Spent with patient: 35 or more minutes
--- NOTE | 2019-10-04 14:08 | RADIOLOGY REPORT (SQ) ---
EXAM DESCRIPTION: CHEST 2 VIEWS IMAGES COMPLETED DATE/TIME: 10/04/2019 1:55 pm REASON FOR STUDY: pulmonary edema COMPARISON: 09/21/2019 EXAM PARAMETERS: NUMBER OF VIEWS: two views TECHNIQUE: Digital Frontal and Lateral radiographic views of the chest acquired. RADIATION DOSE: NA LIMITATIONS: none FINDINGS: LUNGS AND PLEURA: No opacities, masses or pneumothorax. No pleural effusion. MEDIASTINUM AND HILAR STRUCTURES: No masses or contour abnormalities. HEART AND VASCULAR STRUCTURES: Heart remains enlarged. No failure. No effusions. BONES: No acute findings. HARDWARE: None in the chest. OTHER: No other significant finding. IMPRESSION: Cardiomegaly. No acute findings. TECHNICAL DOCUMENTATION: JOB ID: [id number] 2010 [employer]- All Rights Reserved Reading location - IP/workstation name: [email or web address]
--- NOTE | 2019-10-04 17:35 | EKG REPORT ---
SEVERITY:- ABNORMAL ECG - ATRIAL FIBRILLATION, V-RATE 56-97 LVH WITH SECONDARY REPOLARIZATION ABNORMALITY : Confirmed by: Darrian Rowan MD 04-Oct-2019 17:35:08
[2019-10-04 17:44] LABS: BLOOD UREA NITROGEN 51 mg/dL (7-20); CALCIUM 9.5 mg/dL (8.4-10.2); CARBON DIOXIDE 37 mmol/L (22-30); CHLORIDE 86 mmol/L (98-107); GLUCOSE 162 mg/dL (75-110); POTASSIUM 3.1 mmol/L (3.6-5.0)
[2019-10-04 17:47] LABS: ANION GAP 11 (5-19)
[2019-10-04] MEDS: DEXTROSE 5%-WATER 1000 ML 1,000 ML IV PRN (18:57)
[2019-10-04] MEDS: INSULIN LISPRO 100 UNIT/ML 3 ML VIAL SUBCUT SCH (18:57)
[2019-10-04] MEDS: APIXABAN 2.5 MG TABLET PO SCH (18:58)
[2019-10-04] MEDS: GLIPIZIDE XL 2.5 MG TAB.ER.24 PO SCH (18:58)
[2019-10-04] MEDS: ATORVASTATIN CALCIUM 20 MG TABLET PO SCH (22:53)
[2019-10-04] MEDS ORDERED: INSULIN GLARGINE,HUM.REC.ANLOG 1,000 UNIT/10 ML VIAL (PYX) SUBCUT ONE (23:03)
[2019-10-04] MEDS: INSULIN GLARGINE,HUM.REC.ANLOG 1,000 UNIT/10 ML VIAL SUBCUT SCH (23:05)
[2019-10-04 23:41] LABS: APPEARANCE,URINE CLEAR; BILIRUBIN,URINE NEGATIVE (NEGATIVE); COLOR,URINE YELLOW; GLUCOSE, URINE NEGATIVE (NEGATIVE); KETONES,URINE NEGATIVE (NEGATIVE); LEUKOCYTE ESTERASE,URINE NEGATIVE (NEGATIVE); NITRITE,URINE NEGATIVE (NEGATIVE); PROTEIN,URINE 30 mg/dL (NEGATIVE); URINE SPECIFIC GRAVITY 1.011; UROBILINOGEN,URINE NEGATIVE mg/dL (<2.0)
[2019-10-05 06:05] LABS: ABSOLUTE BASOPHILS # (AUTO) 0.1 10^3/uL (0.0-0.2); ABSOLUTE EOSINOPHILS # (AUTO) 0.2 10^3/uL (0.0-0.6); ABSOLUTE LYMPHOCYTES (AUTO) 0.8 10^3/uL (0.5-4.7); ABSOLUTE MONOCYTES (AUTO) 0.4 10^3/uL (0.1-1.4); ABSOLUTE NEUT (AUTO) 2.5 10^3/uL (1.7-8.2); BASOPHILS % (AUTO) 1.3 % (0-2); EOSINOPHILS % (AUTO) 5.1 % (0-6); HEMATOCRIT 37.2 % (37.9-51.0); HEMOGLOBIN 12.5 g/dL (13.5-17.0); MEAN CORPUSCULAR HEMOGLOBIN 25.5 pg (27.0-33.4); MEAN CORPUSCULAR HGB CONC 33.7 g/dL (32.0-36.0); MEAN CORPUSCULAR VOLUME 76 fl (80-97); MONOCYTES % (AUTO) 11.2 % (3-13); PLATELET COUNT 319 10^3/uL (150-450); SEGMENTED NEUTROPHILS % (AUTO) 61.4 % (42-78); TOTAL CELLS COUNTED % (AUTO) 100 %
[2019-10-05] MEDS: PANTOPRAZOLE SODIUM 20 MG TABLET.DR PO SCH (06:13)
[2019-10-05] MEDS: DEXTROSE 5%-WATER 1000 ML 1,000 ML IV PRN (06:22)
[2019-10-05 06:28] LABS: ALKALINE PHOSPHATASE 52 U/L (38-126); ANION GAP 10 (5-19); ASPARTATE AMINO TRANSFERASE 29 U/L (17-59); BILIRUBIN,TOTAL 0.8 mg/dL (0.2-1.3); BLOOD UREA NITROGEN 52 mg/dL (7-20); CALCIUM 9.2 mg/dL (8.4-10.2); CARBON DIOXIDE 37 mmol/L (22-30); CHLORIDE 87 mmol/L (98-107); GLUCOSE 108 mg/dL (75-110); PHOSPHORUS 5.2 mg/dL (2.5-4.5); TOTAL PROTEIN 7.4 g/dL (6.3-8.2)
[2019-10-05 06:32] LABS: POTASSIUM 2.8 mmol/L (3.6-5.0)
[2019-10-05] MEDS ORDERED: POTASSIUM CHLORIDE 10 MEQ TABLET.ER PO SCH ×2 (07:00→08:00)
--- NOTE | 2019-10-05 07:44 | EKG REPORT ---
SEVERITY:- ABNORMAL ECG - ATRIAL FIBRILLATION, V-RATE 53-101 LEFT AXIS DEVIATION LVH WITH SECONDARY REPOLARIZATION ABNORMALITY PROLONGED QT INTERVAL : Confirmed by: Darrian Rowan MD 05-Oct-2019 07:43:21
[2019-10-05] MEDS: INSULIN LISPRO 100 UNIT/ML 3 ML VIAL SUBCUT SCH (08:00)
[2019-10-05] MEDS: GLIPIZIDE XL 2.5 MG TAB.ER.24 PO SCH ×2 (09:21→18:09)
[2019-10-05] MEDS: POTASSIUM CHLORIDE 10 MEQ TABLET.ER PO SCH ×2 (09:22→21:15)
[2019-10-05] MEDS: APIXABAN 2.5 MG TABLET PO SCH ×2 (09:22→18:09)
[2019-10-05] MEDS: DOCUSATE SODIUM 100 MG CAPSULE PO SCH (09:22)
--- NOTE | 2019-10-05 10:47 | PDOC CONSULTATION ---
Consultation-Blank Consultation: CARDIOLOGY CONSULTATION by Rimma Ly on 10/05/2019. Patient seen at 10:30 AM. 60 minutes spent with patient more than 50% time spent in direct patient care. REASON FOR CONSULTATION: Patient with a history of diastolic heart failure, chronic atrial fibrillation with now history of weakness and falls due to overdiuresis and low potassium levels. CONSULT REQUESTING PHYSICIAN: ROSELINE Gannon [facility]. HISTORY OF PRESENT ILLNESS: Patient is 59-year-old Afro-[place] male, with known history of chronic atrial fibrillation, hypertension, diastolic heart failure, diabetes mellitus, and chronic kidney disease stage III was started on Bumex due to increased leg swelling by his primary care physician. This was on the September 28. The patient did well and subsequently when I saw him in the office a few days ago he seemed to be stable. But subsequently since the last 2 to 3 days the patient has been having dizzy spells and weakness and falls due to his generalized weakness but no loss of consciousness. There is no palpitations of increased heart rate. There is no chest pain discomfort. There is no PND orthopnea. His lab work 6 days shows the patient is developed acute renal failure and hypokalemia with GFR going from a baseline chronic kidney disease disease stage III to stage IV with a GFR of 24 mL/min, and a potassium level low at 3.1. The patient was given IV fluids his diuretics have been held and the potassium is. Has been replaced the patient states he feels much better but still has some weakness. In spite of the replacement his potassium this morning is 2.8. He is awaiting nephrology consult. He denies any chest pain discomfort there is no PND orthopnea. He is only trace leg edema.. Of note the patient also has severe significant proteinuria. This was found on prior work-up. But was not thought to be nephrotic syndrome as per truck packer. There is no lakeisha syncope and no near syncope, and no TIA or CVA symptoms. Past Medical History Cardiac Medical History: Reports: Atrial Fibrillation, CHF-Diastolic, Hyperlipidemia, Hypertension-primary Pulmonary Medical History: Reports: Sleep Apnea - Patient underwent an incomplete sleep study at feeling great recently. Endocrine Medical History: Reports: Diabetes Mellitus Type 2 Renal/ Medical History: Reports: Chronic Kidney Disease Stage III, Hypokalemia, Hyperphosphatemia, Secondary Hyperparathyroidism Hematology Medical History: Reports Anemia of Chronic Kidney Disease Past Surgical History Past Surgical History: Reports: None Social History Information Source: Patient, [facility] Records Smoking Status: Never Smoker Electronic Cigarette use?: No Frequency of Alcohol Use: None Hx Recreational Drug Use: No Drugs: None Hx Prescription Drug Abuse: No Current Medications Generic Name Dose Route Start Last Admin Trade Name Freq PRN Reason Stop Dose Admin Acetaminophen 650 mg 10/04/19 13:27 Tylenol 325 Mg Tablet PO 11/03/19 13:26 Q4HP PRN FOR PAIN OR TEMP Al Hydrox/Mg Hydrox/Simethicone 30 ml 10/04/19 13:27 Maalox Plus Susp 30 Udcup PO 11/03/19 13:26 Q6HP PRN HEARTBURN Apixaban 2.5 mg 10/04/19 18:00 10/05/19 18:09 Eliquis 2.5 Mg Tablet PO 11/03/19 17:59 2.5 mg BID ATUL Administration Atorvastatin Calcium 20 mg 10/04/19 22:00 10/05/19 21:16 Lipitor 20 Mg Tablet PO 11/03/19 21:59 20 mg QHS ATUL Administration Dextrose 12.5 gm 10/04/19 13:54 Dextrose Inj 50% Syringe (25 Gm/50 Ml) IV 11/03/19 13:53 PRN PRN FOR BG 50-69 IN ALERT PATIENT Protocol Dextrose 25 gm 10/04/19 13:54 Dextrose Inj 50% Syringe (25 Gm/50 Ml) IV 11/03/19 13:53 PRN PRN PER PROTOCOL Protocol Docusate Sodium 100 mg 10/05/19 10:00 10/05/19 09:22 Colace 100 Mg Capsule PO 11/04/19 09:59 Not Given DAILY ATUL Glipizide 2.5 mg 10/04/19 16:00 10/05/19 18:09 Glucotrol Xl 2.5 Mg Tab.Er PO 11/03/19 15:59 2.5 mg BIDACBS ATUL Administration Glucagon 1 mg 10/04/19 13:54 Glucagen Inj 1 Mg Vial IM 11/03/19 13:53 PRN PRN Evaluate for BG < 70 Protocol Glucose 15 gm 10/04/19 13:54 Glutose 40% Gel 15 Gm Tube PO 11/03/19 13:53 PRN PRN FOR BG 50-69 IN ALERT PATIENT Protocol Glucose 30 gm 10/04/19 13:54 Glutose 40% Gel 15 Gm Tube PO 11/03/19 13:53 PRN PRN FOR BG < 50 IN ALERT PATIENT Protocol Potassium Chloride/Sodium Chloride 1,000 mls @ 150 mls/hr 10/05/19 11:38 10/05/19 20:15 Nacl 0.9% 1000 Ml/Kcl 20 Meq Premix Bag IV 11/04/19 11:37 150 mls/hr CONTINUOUS PRN Administration THIS MED IS NOT "PRN" Insulin Glargine 10 unit 10/04/19 22:00 10/05/19 22:27 Lantus Insulin 100 Unit/1 Ml 10 Ml SUBCUT 11/03/19 21:59 10 unit QHS ATUL Administration Insulin Human Lispro 0 - 12 unit 10/04/19 14:00 10/05/19 08:00 Humalog Insulin 100 Unit/1 Ml 3 Ml Vial SUBCUT 11/03/19 13:59 Not Given ACBRKFST ATUL Protocol Magnesium Hydroxide 30 ml 10/04/19 13:27 Milk Of Magnesia 30 Ml Udcup PO 11/03/19 13:26 HSP PRN FOR CONSTIPATION Ondansetron HCl 4 mg 10/04/19 13:27 Zofran Odt 4 Mg Tablet PO 11/03/19 13:26 Q6HP PRN FOR NAUSEA/VOMITING Ondansetron HCl 4 mg 10/04/19 13:27 Zofran Inj/Pf 4 Mg/2 Ml Sdv IV 11/03/19 13:26 Q6HP PRN FOR NAUSEA/VOMITING Pantoprazole Sodium 20 mg 10/05/19 06:00 10/05/19 06:[address] Tablet PO 11/04/19 05:59 20 mg Q6AM ATUL Administration Potassium Chloride 40 meq 10/05/19 10:00 10/05/19 21:15 Klor-Con 10 Meq Tablet Er PO 11/04/19 09:59 40 meq Q12 ATUL Administration Temazepam 7.5 mg 10/04/19 13:27 Restoril 7.5 Mg Capsule PO 10/11/19 13:26 HSP PRN SLEEP OR INSOMNIA Discontinued Medications Generic Name Dose Route Start Last Admin Trade Name Freq PRN Reason Stop Dose Admin Sodium Chloride 500 mls @ 0 mls/hr 10/04/19 11:28 10/04/19 12:08 Nacl 0.9% 500 Ml Iv Soln IV 10/04/19 11:29 Infused NOW ONE Infusion Wide Open Potassium Chloride/Water 20 meq in 50 mls @ 25 mls/hr 10/04/19 14:00 10/04/19 19:00 Potassium Chloride Darinel 20 Meq/50 Ml IV 10/04/19 17:59 Infused Q2H ATUL Infusion Dextrose 1,000 mls @ 100 mls/hr 10/04/19 16:53 10/05/19 06:22 D5w 1000 Ml Iv Soln IV 11/03/19 16:52 100 mls/hr CONTINUOUS PRN Administration THIS MED IS NOT "PRN" Potassium Chloride/Water 20 meq in 50 mls @ 25 mls/hr 10/05/19 13:15 Potassium Chloride Darinel 20 Meq/50 Ml IV 10/05/19 21:14 Q2H ATUL Insulin Glargine Confirm 10/04/19 23:03 10/05/19 00:24 Lantus (Pyxis) Insulin 100 Unit/1 Ml 10 Ml Administered 10/04/19 23:04 Not Given Dose 1 unit SUBCUT .STK-MED ONE Ondansetron HCl 4 mg 10/04/19 11:27 10/04/19 11:35 Zofran Inj/Pf 4 Mg/2 Ml Sdv IV 10/04/19 11:28 4 mg NOW ONE Administration Potassium Chloride 40 meq 10/04/19 11:39 10/04/19 11:44 Potassium Chloride 20 Meq Packet PO 10/04/19 11:40 40 meq NOW ONE Administration Potassium Chloride 40 meq 10/05/19 08:00 Klor-Con 10 Meq Tablet Er PO 11/04/19 07:59 MEALS ATUL - Advance Directive Resuscitation Status: Full Code Family History Family History: DM - Mother and 2 sisters, End Stage Renal Disease - Mother has been on dialysis Parental Family History Reviewed: Yes Children Family History Reviewed: Unknown Sibling(s) Family History Reviewed.: Yes Medication/Allergy Home Medications: Apixaban [Eliquis 2.5 mg Tablet] 2.5 mg PO BID #60 tablet 04/23/18 Atorvastatin Calcium [Lipitor 20 mg Tablet] 20 mg PO QHS #30 tablet 04/23/18 Glipizide [Glucotrol 5 mg Tablet] 2.5 mg PO BIDACBS #30 tablet 07/15/19 Hydralazine HCl 100 mg PO Q8 1 Days #90 tablet 07/15/19 Insulin Glargine,Hum.rec.anlog [Lantus Insulin 100 Unit/mL Insulin Pen] 10 unit SUBCUT QHS #10 ml 07/15/19 Nifedipine [Nifedipine ER] 90 mg PO DAILY #30 tablet.er 07/15/19 Losartan Potassium [Cozaar 25 mg Tablet] 25 mg PO BID 30 Days #60 tablet 09/21/19 Metoprolol Succinate [Toprol Xl 25 mg Tab.sr] 25 mg PO Q12 tab.sr.24h 09/21/19 Carvedilol [Coreg 12.5 mg Tablet] 25 mg PO Q12 10/04/19 Clonidine HCl [Catapres 0.2 mg Tablet] 0.2 mg PO TID 10/04/19 Furosemide [Lasix 40 mg Tablet] 40 mg PO BID 10/04/19 Iron 28mg 28 mg PO DAILY 10/04/19 Isosorbide Mononitrate [Imdur 60 mg Tablet.er] 60 mg PO DAILY 10/04/19 Metolazone [Zaroxolyn 5 mg Tablet] 5 mg PO DAILY 10/04/19 Potassium Chloride 10 meq PO DAILY 10/04/19 Spironolactone 50 mg PO DAILY 10/04/19 Resuscitation STATUS: The patient is a full code. His is a surrogate healthcare decision maker. Allergies/Adverse Reactions: No Known Allergies Allergy (Verified 04/20/18 11:04) Review of Systems All systems: reviewed and no additional remarkable complaints except as stated Review of Systems: Constitutional: ABSENT: chills, fatigue, fever(s), headache(s), weight gain; admits fluid weight loss and generalized weakness Eyes: ABSENT: visual disturbances Ears: ABSENT: hearing changes Cardiovascular: ABSENT: chest pain, dyspnea on exertion, orthropnea, palpitations; admits edema Respiratory: ABSENT: cough, dyspnea, hemoptysis Gastrointestinal: ABSENT: abdominal pain, constipation, diarrhea, hematemesis, hematochezia, nausea, vomiting Genitourinary: ABSENT: dysuria, hematuria Musculoskeletal: ABSENT: joint swelling Integumentary: ABSENT: rash, wounds Neurological: ABSENT: abnormal gait, abnormal speech, confusion,; focal weakness, numbness; reports pre-syncope, dizziness and lightheadedness Psychiatric: ABSENT: anxiety, depression Endocrine: ABSENT: cold intolerance, heat intolerance, polydipsia, polyuria Hematologic/Lymphatic: ABSENT: easy bleeding, easy bruising, lymphadenopathy Physical EXAMINATION: The patient is mildly obese. In no acute distress. Selected Entries 10/05/19 11:00 Temperature 98.0 F Temperature Oral Source Pulse Rate 90 Respiratory 18 Rate Blood Pressure 131/80 H Blood Pressure 97 Mean BP Location Left Arm BP Position Sitting O2 Sat by Pulse 100 Oximetry Oxygen Delivery Room Air Method Head: Is atraumatic normocephalic. EYES: Pupils are equal round regular reactive light accommodation. Ocular movements are normal. There is no conjunctival pallor. There is no scleral icterus. EARS: Tympanic membranes are intact. External auditory canals are clear. NOSE: There is no deviated nasal septum. There is no inflammation of the nasal mucous membrane. MOUTH: Mucous membranes of mouth are slightly dry tongue is dry. There is no ulcers. There is no bleeding from the gums. THROAT: There is no redness of the oropharynx. There is no exudates. SKIN: There is no skin rashes or petechia or ecchymosis. There is no skin lesions. NECK: Supple. There is no JVD. Carotids are equal there is no bruit. There is no lymphadenopathy. There is no goiter. There is no accessory muscle respiration use. Trachea central. LUNGS: Is clear to auscultation percussion without any rhonchi rales or wheezing. HEART: S1-S2 is heard. S1 is of variable intensity. There is no S3 gallop. There is no S4 gallop. There is systolic murmur in the left sternal border and apex there is no rub. ABDOMEN: Is soft. There is no tender areas. Bowel sounds are well heard. There is no hepatosplenomegaly. There is no rebound guarding or rigidity. EXTREMITIES: Femorals are diminished. There is no femoral bruits. Leg pulses are diminished. There is trace pedal edema. There is some chronic venous stasis dermatitis. There is no cyanosis or clubbing. 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 PSYCHIATRIC: Patient judgment insight are intact his affect is normal. Labs- Entire Visit 10/04/19 10/04/19 10/04/19 10:45 10:45 10:45 WBC 4.1 RBC 4.67 Hgb 12.0 L Hct 35.7 L MCV 76 L MCH 25.8 L MCHC 33.7 RDW 17.9 H Plt Count 372 Lymph % (Auto) 28.3 [place] % (Auto) 10.2 Eos % (Auto) 7.8 H Baso % (Auto) 2.0 Absolute Neuts (auto) 2.1 Absolute Lymphs (auto) 1.2 Absolute Monos (auto) 0.4 Absolute Eos (auto) 0.3 Absolute Basos (auto) 0.1 Seg Neutrophils % 51.7 PT INR APTT Sodium 132.8 L Potassium 2.7 L* Chloride 84 L Carbon Dioxide 39 H Anion Gap 10 BUN 50 H Creatinine 3.24 H Est GFR ( Amer) 24 L Est GFR (MDRD) Non-Af 20 L Glucose 245 H POC Glucose Calcium 9.5 Phosphorus Magnesium Total Bilirubin 0.7 Direct Bilirubin 0.0 Neonat Total Bilirubin Not Reportable Neonat Direct Bilirubin Not Reportable Neonat Indirect Bili Not Reportable AST 27 ALT 25 Alkaline Phosphatase 54 Creatine Kinase 65 CK-MB (CK-2) 0.23 Troponin I 0.064 NT-Pro-B Natriuret Pep Total Protein 7.0 Albumin 3.8 Urine Color Urine Appearance Urine pH Ur Specific [place] Urine Protein Urine Glucose (UA) Urine Ketones Urine Blood Urine Nitrite Urine Bilirubin Urine Urobilinogen Ur Leukocyte Esterase Urine WBC (Auto) U Hyaline Cast (Auto) Urine Mucus (Auto) Urine Ascorbic Acid 10/04/19 10/04/19 10/04/19 10:45 10:45 10:45 WBC RBC Hgb Hct MCV MCH MCHC RDW Plt Count Lymph % (Auto) [place] % (Auto) Eos % (Auto) Baso % (Auto) Absolute Neuts (auto) Absolute Lymphs (auto) Absolute Monos (auto) Absolute Eos (auto) Absolute Basos (auto) Seg Neutrophils % PT 14.9 INR 1.16 APTT Sodium Potassium Chloride Carbon Dioxide Anion Gap BUN Creatinine Est GFR ( Amer) Est GFR (MDRD) Non-Af Glucose POC Glucose Calcium Phosphorus Magnesium 2.2 Total Bilirubin Direct Bilirubin Neonat Total Bilirubin Neonat Direct Bilirubin Neonat Indirect Bili AST ALT Alkaline Phosphatase Creatine Kinase CK-MB (CK-2) Troponin I NT-Pro-B Natriuret Pep 3610 H Total Protein Albumin Urine Color Urine Appearance Urine pH Ur Specific [place] Urine Protein Urine Glucose (UA) Urine Ketones Urine Blood Urine Nitrite Urine Bilirubin Urine Urobilinogen Ur Leukocyte Esterase Urine WBC (Auto) U Hyaline Cast (Auto) Urine Mucus (Auto) Urine Ascorbic Acid 10/04/19 10/04/19 10/04/19 15:59 16:51 21:14 WBC RBC Hgb Hct MCV MCH MCHC RDW Plt Count Lymph % (Auto) [place] % (Auto) Eos % (Auto) Baso % (Auto) Absolute Neuts (auto) Absolute Lymphs (auto) Absolute Monos (auto) Absolute Eos (auto) Absolute Basos (auto) Seg Neutrophils % PT INR APTT Sodium 134.4 L Potassium 3.1 L Chloride 86 L Carbon Dioxide 37 H Anion Gap 11 BUN 51 H Creatinine 3.47 H Est GFR ( Amer) 22 L Est GFR (MDRD) Non-Af 18 L Glucose 162 H POC Glucose 172 H 282 H Calcium 9.5 Phosphorus Magnesium Total Bilirubin Direct Bilirubin Neonat Total Bilirubin Neonat Direct Bilirubin Neonat Indirect Bili AST ALT Alkaline Phosphatase Creatine Kinase CK-MB (CK-2) Troponin I NT-Pro-B Natriuret Pep Total Protein Albumin Urine Color Urine Appearance Urine pH Ur Specific [place] Urine Protein Urine Glucose (UA) Urine Ketones Urine Blood Urine Nitrite Urine Bilirubin Urine Urobilinogen Ur Leukocyte Esterase Urine WBC (Auto) U Hyaline Cast (Auto) Urine Mucus (Auto) Urine Ascorbic Acid 10/04/19 10/05/19 10/05/19 23:09 05:04 05:04 WBC 4.0 RBC 4.90 Hgb 12.5 L Hct 37.2 L MCV 76 L MCH 25.5 L MCHC 33.7 RDW 18.0 H Plt Count 319 Lymph % (Auto) 21.0 [place] % (Auto) 11.2 Eos % (Auto) 5.1 Baso % (Auto) 1.3 Absolute Neuts (auto) 2.5 Absolute Lymphs (auto) 0.8 Absolute Monos (auto) 0.4 Absolute Eos (auto) 0.2 Absolute Basos (auto) 0.1 Seg Neutrophils % 61.4 PT INR APTT 30.0 Sodium Potassium Chloride Carbon Dioxide Anion Gap BUN Creatinine Est GFR ( Amer) Est GFR (MDRD) Non-Af Glucose POC Glucose Calcium Phosphorus Magnesium Total Bilirubin Direct Bilirubin Neonat Total Bilirubin Neonat Direct Bilirubin Neonat Indirect Bili AST ALT Alkaline Phosphatase Creatine Kinase CK-MB (CK-2) Troponin I NT-Pro-B Natriuret Pep Total Protein Albumin Urine Color YELLOW Urine Appearance CLEAR Urine pH 5.0 Ur Specific [place] 1.011 Urine Protein 30 H Urine Glucose (UA) NEGATIVE Urine Ketones NEGATIVE Urine Blood NEGATIVE Urine Nitrite NEGATIVE Urine Bilirubin NEGATIVE Urine Urobilinogen NEGATIVE Ur Leukocyte Esterase NEGATIVE Urine WBC (Auto) 0 U Hyaline Cast (Auto) 3 Urine Mucus (Auto) RARE Urine Ascorbic Acid NEGATIVE 10/05/19 10/05/19 10/05/19 05:04 05:04 06:32 WBC RBC Hgb Hct MCV MCH MCHC RDW Plt Count Lymph % (Auto) [place] % (Auto) Eos % (Auto) Baso % (Auto) Absolute Neuts (auto) Absolute Lymphs (auto) Absolute Monos (auto) Absolute Eos (auto) Absolute Basos (auto) Seg Neutrophils % PT INR APTT Sodium 134.0 L Potassium 2.8 L* Chloride 87 L Carbon Dioxide 37 H Anion Gap 10 BUN 52 H Creatinine 3.27 H Est GFR ( Amer) 24 L Est GFR (MDRD) Non-Af 20 L Glucose 108 POC Glucose 121 H Calcium 9.2 Phosphorus 5.2 H Magnesium Total Bilirubin 0.8 Direct Bilirubin 0.0 Neonat Total Bilirubin Not Reportable Neonat Direct Bilirubin Not Reportable Neonat Indirect Bili Not Reportable AST 29 ALT 27 Alkaline Phosphatase 52 Creatine Kinase CK-MB (CK-2) Troponin I NT-Pro-B Natriuret Pep 2820 H Total Protein 7.4 Albumin 4.0 Urine Color Urine Appearance Urine pH Ur Specific [place] Urine Protein Urine Glucose (UA) Urine Ketones Urine Blood Urine Nitrite Urine Bilirubin Urine Urobilinogen Ur Leukocyte Esterase Urine WBC (Auto) U Hyaline Cast (Auto) Urine Mucus (Auto) Urine Ascorbic Acid 10/05/19 10/05/19 10/05/19 11:02 15:45 22:06 WBC RBC Hgb Hct MCV MCH MCHC RDW Plt Count Lymph % (Auto) [place] % (Auto) Eos % (Auto) Baso % (Auto) Absolute Neuts (auto) Absolute Lymphs (auto) Absolute Monos (auto) Absolute Eos (auto) Absolute Basos (auto) Seg Neutrophils % PT INR APTT Sodium Potassium Chloride Carbon Dioxide Anion Gap BUN Creatinine Est GFR ( Amer) Est GFR (MDRD) Non-Af Glucose POC Glucose 226 H 131 H 181 H Calcium Phosphorus Magnesium Total Bilirubin Direct Bilirubin Neonat Total Bilirubin Neonat Direct Bilirubin Neonat Indirect Bili AST ALT Alkaline Phosphatase Creatine Kinase CK-MB (CK-2) Troponin I NT-Pro-B Natriuret Pep Total Protein Albumin Urine Color Urine Appearance Urine pH Ur Specific [place] Urine Protein Urine Glucose (UA) Urine Ketones Urine Blood Urine Nitrite Urine Bilirubin Urine Urobilinogen Ur Leukocyte Esterase Urine WBC (Auto) U Hyaline Cast (Auto) Urine Mucus (Auto) Urine Ascorbic Acid Chest X-Ray 10/04/19 00:00 IMPRESSION: Cardiomegaly. No acute findings. The patient's first EKG and second EKG shows atrial fibrillation with controlled ventricular response. There is LVH with strain pattern IMPRESSION/RECOMMENDATION: 1. Generalized weakness and falls and dizziness secondary to overdiuresis. Causing volume depletion and hypokalemia. Agree with holding diuretics and gently rehydrating the patient and replacing the patient's potassium. Nephrology input awaited. 2. Acute on chronic renal failure. At present patient's GFR is 24 which is chronic kidney disease stage IV with the patient's baseline CKD of stage III. This is a result of overdiuresis. 3. Hypokalemia: Replace potassium. 4. Chronic atrial fibrillation: The rate is well controlled continue current AV thomas blocking agents and also Eliquis. 5. Hypertension: Blood pressure well controlled. 6. Diabetes mellitus 7. Chronic kidney disease stage III being the baseline. Nephrology input awaited. 8. Chronic diastolic heart failure: At present compensated no evidence of any decompensated cardiac failure. Medications reviewed. Medical management and medical regimen discussed with the attending provider on the case. Also will discuss with nephrology. Medical decision making is of moderate complexity. 60 minutes spent as patient more than 50% of time spent in direct patient care. Will follow patient.
[2019-10-05] MEDS: POTASSI CL 20 MEQ/NS 1L 1,000 ML IV PRN ×2 (12:18→20:15)
--- NOTE | 2019-10-05 12:22 | PDOC CONSULTATION ---
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 Patient was just recently discharged from the hospital on September being admitted for exacerbation of acute diastolic heart failure at that time. He got discharged with his blood pressure medications and diuretics with Lasix 40 mg twice daily. He saw his primary care provider, Dr. Desai on September 28 and he was started on metolazone 5 mg daily in addition to his furosemide. He also saw his rural carrier associate, Dr. Ly last week but did not change any medications at that point. Patient states that for the last 2 days prior to admission he has been passing out 3 times without any loss of consciousness and just feeling weak and lightheaded. He states that he lost about 20 pounds since he was discharge. Initial evaluation in the emergency room showed a low blood pressure as low as 91/60 which is unusual for him because he usually runs high even though he is on multiple blood pressure medications. He also presented with a BUN of 50 and creatinine of 3.47 at the peak. Upon discharge on September 20 he had a BUN of 25, creatinine 1.96 with EGFR 43. He also has low potassium of 2.7 and a low sodium of 132.8. He was started on IV fluids with D5 water and potassium replacement since admission. When I saw him this morning he was comfortably sitting in the chair without any respiratory distress. He denies any chest pains no shortness of breath just feeling a little bit lightheaded but feels better than yesterday. He said his leg swelling has improved. His blood pressure today is a little bit better but still on the low side without any blood pressure medications. His potassium continues to be low at 2.8. He was given IV potassium replacement yesterday and is currently on oral potassium. Today his BUN is 52 with creatinine of 3.27. His urinalysis yesterday only showed 30 of protein and no blood. He currently is stable and has no other complaints otherwise. Past Medical History Cardiac Medical History: Reports: Atrial Fibrillation, CHF-Diastolic, Hyperlipidemia, Hypertension-primary Pulmonary Medical History: Reports: Sleep Apnea - Patient underwent an incomplete sleep study at feeling great recently. Endocrine Medical History: Reports: Diabetes Mellitus Type 2 Renal/ Medical History: Reports: Chronic Kidney Disease Stage III, Hypokalemia, Hyperphosphatemia, Secondary Hyperparathyroidism Hematology Medical History: Reports Anemia of Chronic Kidney Disease Past Surgical History Past Surgical History: Reports: None Social History Information Source: Patient, [facility] Records Smoking Status: Never Smoker Electronic Cigarette use?: No Frequency of Alcohol Use: None Hx Recreational Drug Use: No Drugs: None Hx Prescription Drug Abuse: No - Advance Directive Resuscitation Status: Full Code Family History Family History: DM - Mother and 2 sisters, End Stage Renal Disease - Mother has been on dialysis Parental Family History Reviewed: Yes Children Family History Reviewed: Unknown Sibling(s) Family History Reviewed.: Yes Medication/Allergy Home Medications: Apixaban [Eliquis 2.5 mg Tablet] 2.5 mg PO BID #60 tablet 04/23/18 Atorvastatin Calcium [Lipitor 20 mg Tablet] 20 mg PO QHS #30 tablet 04/23/18 Glipizide [Glucotrol 5 mg Tablet] 2.5 mg PO BIDACBS #30 tablet 07/15/19 Hydralazine HCl 100 mg PO Q8 1 Days #90 tablet 07/15/19 Insulin Glargine,Hum.rec.anlog [Lantus Insulin 100 Unit/mL Insulin Pen] 10 unit SUBCUT QHS #10 ml 07/15/19 Nifedipine [Nifedipine ER] 90 mg PO DAILY #30 tablet.er 07/15/19 Losartan Potassium [Cozaar 25 mg Tablet] 25 mg PO BID 30 Days #60 tablet 09/21/19 Metoprolol Succinate [Toprol Xl 25 mg Tab.sr] 25 mg PO Q12 tab.sr.24h 09/21/19 Carvedilol [Coreg 12.5 mg Tablet] 25 mg PO Q12 10/04/19 Clonidine HCl [Catapres 0.2 mg Tablet] 0.2 mg PO TID 10/04/19 Furosemide [Lasix 40 mg Tablet] 40 mg PO BID 10/04/19 Iron 28mg 28 mg PO DAILY 10/04/19 Isosorbide Mononitrate [Imdur 60 mg Tablet.er] 60 mg PO DAILY 10/04/19 Metolazone [Zaroxolyn 5 mg Tablet] 5 mg PO DAILY 10/04/19 Potassium Chloride 10 meq PO DAILY 10/04/19 Spironolactone 50 mg PO DAILY 10/04/19 Allergies/Adverse Reactions: No Known Allergies Allergy (Verified 04/20/18 11:04) Review of Systems All systems: reviewed and no additional remarkable complaints except as stated Review of Systems: Constitutional: ABSENT: chills, fatigue, fever(s), headache(s), weight gain; admits fluid weight loss and generalized weakness Eyes: ABSENT: visual disturbances Ears: ABSENT: hearing changes Cardiovascular: ABSENT: chest pain, dyspnea on exertion, orthropnea, palpitations; admits edema Respiratory: ABSENT: cough, dyspnea, hemoptysis Gastrointestinal: ABSENT: abdominal pain, constipation, diarrhea, hematemesis, hematochezia, nausea, vomiting Genitourinary: ABSENT: dysuria, hematuria Musculoskeletal: ABSENT: joint swelling Integumentary: ABSENT: rash, wounds Neurological: ABSENT: abnormal gait, abnormal speech, confusion,; focal weakness, numbness; reports pre-syncope, dizziness and lightheadedness Psychiatric: ABSENT: anxiety, depression Endocrine: ABSENT: cold intolerance, heat intolerance, polydipsia, polyuria Hematologic/Lymphatic: ABSENT: easy bleeding, easy bruising, lymphadenopathy Physical Exam Vital Signs: Temp Pulse Resp BP Pulse Ox 98.8 F 82 16 115/65 98 10/05/19 08:01 10/05/19 08:01 10/05/19 08:01 10/05/19 08:01 10/05/19 08:01 Intake & Output 10/04/19 10/05/19 10/06/19 06:59 06:59 06:59 Intake Total 2710 Output Total 350 Balance 2360 Weight 102.3 kg Exam: General appearance: No acute distress, cooperative, well-developed, well- nourished Head exam: PRESENT: atraumatic, normocephalic Eye exam: PRESENT: Conjunctiva slightly pale, EOMI, PERRLA. ABSENT: conjunctival injection, scleral icterus Mouth exam: PRESENT: moist, neck supple, tongue midline Neck exam: PRESENT: full ROM. ABSENT: carotid bruit, JVD, lymphadenopathy, thyromegaly Respiratory exam: PRESENT: Diminished to auscultation bilaterally. ABSENT: rales, rhonchi, stridor, wheezes Cardiovascular exam: PRESENT: RRR, +S1, +S2. ABSENT: systolic murmur Pulses: PRESENT: normal radial pulses, normal dorsalis pedis pulses GI/Abdominal exam: PRESENT: normal bowel sounds, soft. ABSENT: guarding, mass, tenderness Rectal exam: Deferred Extremities exam: PRESENT: full ROM. Much improved trace bilateral lower extremity pitting edema ABSENT: calf tenderness Musculoskeletal: PRESENT: full ROM. ABSENT: deformity Neurological exam: PRESENT: alert, Awake, Oriented to person, Oriented to place, Oriented to time, reflexes normal, CN II-XII grossly intact. ABSENT: motor sensory deficit Psychiatric exam: PRESENT: appropriate affect, normal mood. ABSENT: homicidal ideation, suicidal ideation Skin exam: PRESENT: intact, dry, warm. ABSENT: rash Results Laboratory Results: 10/05/19 05:04 10/05/19 05:04 10/04/19 10/04/19 10/04/19 10:45 16:51 23:09 WBC RBC Hgb Hct MCV MCH MCHC RDW Plt Count Seg Neutrophils % Sodium 134.4 L Potassium 3.1 L Chloride 86 L Carbon Dioxide 37 H Anion Gap 11 BUN 51 H Creatinine 3.47 H Est GFR ( Amer) 22 L Glucose 162 H Calcium 9.5 Phosphorus Magnesium 2.2 Total Bilirubin AST Alkaline Phosphatase Total Protein Albumin Urine Color YELLOW Urine Appearance CLEAR Urine pH 5.0 Ur Specific [place] 1.011 Urine Protein 30 H Urine Glucose (UA) NEGATIVE Urine Ketones NEGATIVE Urine Blood NEGATIVE Urine Nitrite NEGATIVE Ur Leukocyte Esterase NEGATIVE Urine WBC (Auto) 0 10/05/19 10/05/19 05:04 05:04 WBC 4.0 RBC 4.90 Hgb 12.5 L Hct 37.2 L MCV 76 L MCH 25.5 L MCHC 33.7 RDW 18.0 H Plt Count 319 Seg Neutrophils % 61.4 Sodium 134.0 L Potassium 2.8 L* Chloride 87 L Carbon Dioxide 37 H Anion Gap 10 BUN 52 H Creatinine 3.27 H Est GFR ( Amer) 24 L Glucose 108 Calcium 9.2 Phosphorus 5.2 H Magnesium Total Bilirubin 0.8 AST 29 Alkaline Phosphatase 52 Total Protein 7.4 Albumin 4.0 Urine Color Urine Appearance Urine pH Ur Specific [place] Urine Protein Urine Glucose (UA) Urine Ketones Urine Blood Urine Nitrite Ur Leukocyte Esterase Urine WBC (Auto) 10/04/19 10/04/19 10/04/19 10:45 10:45 10:45 Creatine Kinase 65 CK-MB (CK-2) 0.23 Troponin I 0.064 NT-Pro-B Natriuret Pep 3610 H 10/05/19 05:04 Creatine Kinase CK-MB (CK-2) Troponin I NT-Pro-B Natriuret Pep 2820 H Impressions: Chest X-Ray 10/04/19 00:00 IMPRESSION: Cardiomegaly. No acute findings. Assessment & Plan - Diagnosis (1) Dehydration Is this a current diagnosis for this admission?: Yes Plan: Patient most definitely is volume depleted likely secondary to overdiuresis. I will change his IV fluids from D5 water to 0.9 normal saline with 20 mEq of potassium to run at 150 mL an hour. (2) Acute kidney injury superimposed on chronic kidney disease Is this a current diagnosis for this admission?: Yes Plan: Patient has baseline chronic kidney disease stage III with nonnephrotic range proteinuria secondary to hypertensive nephrosclerosis with contribution of diabetic nephropathy. The acute worsening of his kidney function is again most likely secondary to prerenal azotemia due to volume depletion because of overdiuresis. I expect his kidney function to improve with IV fluid hydration. I think the patient's baseline kidney function is probably on the higher 2's. No need of any renal replacement therapy at this time. Avoid nephrotoxic medications. Monitor kidney function and electrolytes. (3) Hypotension Qualifiers: Hypotension type: unspecified hypotension type Is this a current diagnosis for this admission?: Yes Plan: Due to volume depletion. We will do fluid resuscitation. Once the patient's blood pressure started going up to his baseline then we can resume his blood pressure medications slowly. He would still need some maintenance diuretics to be discharge home with once he is at steady state after fluid resuscitation. (4) Hypokalemia Is this a current diagnosis for this admission?: Yes Plan: Due to diuresis. Will replace potassium. Patient is also on spironolactone 50 mg daily prior to admission that can be resumed once he improves. (5) Diabetes mellitus type 2 in obese Is this a current diagnosis for this admission?: Yes (6) Anemia in chronic kidney disease (CKD) Is this a current diagnosis for this admission?: Yes (7) Chronic diastolic (congestive) heart failure Is this a current diagnosis for this admission?: Yes Plan: Currently compensated. (8) Chronic kidney disease, stage III (moderate) Is this a current diagnosis for this admission?: Yes Plan: Associated with nonnephrotic range proteinuria secondary to hypertensive nephrosclerosis and contribution of diabetes mellitus. (9) Paroxysmal atrial fibrillation Is this a current diagnosis for this admission?: Yes Plan: On Eliquis. (10) Chronic kidney disease-mineral and bone disorder Is this a current diagnosis for this admission?: Yes - Notes Notes: Discussed with Oskar Araujo PA-C. Thank you very much for this consultation. - Time Time Spent: Greater than 70 Minutes
--- NOTE | 2019-10-05 13:09 | PDOC PROGRESS REPORT ---
Subjective Progress Note for:: 10/05/19 Reason For Visit: CHRONIC PAROXYSMAL,ATRIAL FIB,SYNCOPE,CHF, Syncope, hypokalemia, acute kidney injury, CHF with overdiuresis and volume depletion Physical Exam Vital Signs: Temp Pulse Resp BP Pulse Ox 98.8 F 82 16 115/65 98 10/05/19 08:01 10/05/19 08:01 10/05/19 08:01 10/05/19 08:01 10/05/19 08:01 Intake & Output 10/04/19 10/05/19 10/06/19 06:59 06:59 06:59 Intake Total 2710 Output Total 350 Balance 2360 Weight 102.3 kg General appearance: PRESENT: no acute distress, other - Patient is sitting up in the chair in no distress. Respiratory exam: PRESENT: clear to auscultation farooq. ABSENT: rales, rhonchi, wheezes Cardiovascular exam: PRESENT: RRR. ABSENT: diastolic murmur, rubs, systolic murmur Neurological exam: PRESENT: alert, awake, oriented to person, oriented to place, oriented to time, oriented to situation, CN II-XII grossly intact. ABSENT: mot or sensory deficit Psychiatric exam: PRESENT: appropriate affect, normal mood. ABSENT: homicidal ideation, suicidal ideation Results Laboratory Results: 10/05/19 05:04 10/05/19 05:04 10/04/19 10/04/19 10/05/19 16:51 23:09 05:04 WBC 4.0 RBC 4.90 Hgb 12.5 L Hct 37.2 L MCV 76 L MCH 25.5 L MCHC 33.7 RDW 18.0 H Plt Count 319 Seg Neutrophils % 61.4 Sodium 134.4 L Potassium 3.1 L Chloride 86 L Carbon Dioxide 37 H Anion Gap 11 BUN 51 H Creatinine 3.47 H Est GFR ( Amer) 22 L Glucose 162 H Calcium 9.5 Phosphorus Total Bilirubin AST Alkaline Phosphatase Total Protein Albumin Urine Color YELLOW Urine Appearance CLEAR Urine pH 5.0 Ur Specific [place] 1.011 Urine Protein 30 H Urine Glucose (UA) NEGATIVE Urine Ketones NEGATIVE Urine Blood NEGATIVE Urine Nitrite NEGATIVE Ur Leukocyte Esterase NEGATIVE Urine WBC (Auto) 0 10/05/19 05:04 WBC RBC Hgb Hct MCV MCH MCHC RDW Plt Count Seg Neutrophils % Sodium 134.0 L Potassium 2.8 L* Chloride 87 L Carbon Dioxide 37 H Anion Gap 10 BUN 52 H Creatinine 3.27 H Est GFR ( Amer) 24 L Glucose 108 Calcium 9.2 Phosphorus 5.2 H Total Bilirubin 0.8 AST 29 Alkaline Phosphatase 52 Total Protein 7.4 Albumin 4.0 Urine Color Urine Appearance Urine pH Ur Specific [place] Urine Protein Urine Glucose (UA) Urine Ketones Urine Blood Urine Nitrite Ur Leukocyte Esterase Urine WBC (Auto) 10/04/19 10/04/19 10/04/19 10:45 10:45 10:45 Creatine Kinase 65 CK-MB (CK-2) 0.23 Troponin I 0.064 NT-Pro-B Natriuret Pep 3610 H 10/05/19 05:04 Creatine Kinase CK-MB (CK-2) Troponin I NT-Pro-B Natriuret Pep 2820 H Impressions: Chest X-Ray 10/04/19 00:00 IMPRESSION: Cardiomegaly. No acute findings. Assessment and Plan - Diagnosis (1) Hypokalemia Is this a current diagnosis for this admission?: Yes (2) Hypotension Qualifiers: Hypotension type: unspecified hypotension type Qualified Code(s): I95.9 - Hypotension, unspecified Is this a current diagnosis for this admission?: Yes (3) Abnormal electrocardiogram Is this a current diagnosis for this admission?: Yes (4) Acute hyperglycemia Is this a current diagnosis for this admission?: Yes (5) Acute kidney injury superimposed on chronic kidney disease Is this a current diagnosis for this admission?: Yes (6) Diabetes Is this a current diagnosis for this admission?: Yes (7) Elevated troponin I level Is this a current diagnosis for this admission?: Yes (8) Paroxysmal atrial fibrillation Is this a current diagnosis for this admission?: Yes - Plan Summary Summary: Patient will be admitted to the hospital for adjustment of his medications. Lungs are actually clear to auscultation he only has minimal 1+ pitting edema of his extremities. No chest x-ray has been performed yet although this is been ordered. BNP is actually lower than when discharged today it is 3610, he was discharged 14 days ago it was 4730 and trending down. I believe patient became weak and lightheaded as a result of his medications, potentially bradyed down, and or became hypotensive. I do not think patient is in congestive heart failure at this time. Patient is stable in the emergency room, and in no distress Cardiology and nephrology will be consulted 10/05/2019 Patient is stable temperature 98.8 pulse 82 and regular Blood pressure 115/65, however earlier it was 105/66 and on admission it was 98/68 Oxygen saturation is 98% on room air Weight is approximately 102.3 kg. When patient was discharged from the hospital 09/21/19 his weight was recorded as 113.5 kg, and on that admission his weight was as high as 118.6 kg. It appears as though patient has lost approximately 10 kg since his last admission Patient has no symptoms of syncope, lightheaded, or generalized weakness Nephrology has made adjustments to patient's IV fluids. We will continue to rehydrate, gradually add patient's medications back to his regimen. This morning patient's potassium remains low at 2.8, will add replacements, in addition to his IV fluids - Time Time Spent with patient: 25-34 minutes
[2019-10-05] MEDS ORDERED: POTASSI CL 20 MEQ/50 ML RIDER 20 MEQ/50 ML RTUPB IV SCH (13:15)
[2019-10-05] MEDS: ATORVASTATIN CALCIUM 20 MG TABLET PO SCH (21:16)
[2019-10-05] MEDS: INSULIN GLARGINE,HUM.REC.ANLOG 1,000 UNIT/10 ML VIAL SUBCUT SCH (22:27)
[2019-10-06] MEDS: POTASSI CL 20 MEQ/NS 1L 1,000 ML IV PRN (03:09)
[2019-10-06 04:59] LABS: ABSOLUTE EOSINOPHILS # (AUTO) 0.4 10^3/uL (0.0-0.6); ABSOLUTE LYMPHOCYTES (AUTO) 1.2 10^3/uL (0.5-4.7); ABSOLUTE MONOCYTES (AUTO) 0.5 10^3/uL (0.1-1.4); ABSOLUTE NEUT (AUTO) 1.8 10^3/uL (1.7-8.2); BASOPHILS % (AUTO) 1.3 % (0-2); EOSINOPHILS % (AUTO) 9.7 % (0-6); HEMATOCRIT 41.5 % (37.9-51.0); LYMPHOCYTES % (AUTO) 31.1 % (13-45); MEAN CORPUSCULAR HEMOGLOBIN 25.5 pg (27.0-33.4); MEAN CORPUSCULAR HGB CONC 33.6 g/dL (32.0-36.0); MEAN CORPUSCULAR VOLUME 76 fl (80-97); MONOCYTES % (AUTO) 13.4 % (3-13); PLATELET COUNT 288 10^3/uL (150-450); RED BLOOD COUNT 5.47 10^6/uL (4.35-5.55); RED CELL DISTRIBUTION WIDTH 17.9 % (11.5-14.0); SEGMENTED NEUTROPHILS % (AUTO) 44.5 % (42-78); TOTAL CELLS COUNTED % (AUTO) 100 %; WHITE BLOOD COUNT 3.9 10^3/uL (4.0-10.5)
[2019-10-06] MEDS: PANTOPRAZOLE SODIUM 20 MG TABLET.DR PO SCH (05:06)
[2019-10-06] MEDS: INSULIN LISPRO 100 UNIT/ML 3 ML VIAL SUBCUT SCH (08:00)
[2019-10-06 08:03] LABS: ANION GAP 7 (5-19); BLOOD UREA NITROGEN 45 mg/dL (7-20); CALCIUM 8.9 mg/dL (8.4-10.2); CARBON DIOXIDE 35 mmol/L (22-30); CHLORIDE 96 mmol/L (98-107); GLUCOSE 92 mg/dL (75-110)
[2019-10-06 08:16] LABS: POTASSIUM 2.8 mmol/L (3.6-5.0)
[2019-10-06] MEDS ORDERED: IRON 28 MG PO SCH (10:00)
[2019-10-06] MEDS ORDERED: METOPROLOL SUCCINATE 25 MG TAB.SR.24H PO SCH (10:00)
[2019-10-06] MEDS ORDERED: CARVEDILOL 12.5 MG TABLET PO SCH (10:00)
[2019-10-06] MEDS ORDERED: (PENDING PHARMACY ID) (Nifedipine [Nifedipine Er] 90 MG) PO SCH (10:00)
[2019-10-06] MEDS ORDERED: METOLAZONE 5 MG TABLET PO SCH (10:00)
[2019-10-06] MEDS ORDERED: ISOSORBIDE MONONITRATE 60 MG TAB.ER.24H PO SCH (10:00)
[2019-10-06] MEDS ORDERED: FERROUS SULFATE 325 MG TABLET PO SCH (10:00)
[2019-10-06] MEDS ORDERED: NIFEDIPINE 30 MG TAB.ER.24 PO SCH (10:00)
[2019-10-06] MEDS: DOCUSATE SODIUM 100 MG CAPSULE PO SCH (10:11)
[2019-10-06] MEDS: APIXABAN 2.5 MG TABLET PO SCH ×2 (10:16→17:36)
[2019-10-06] MEDS: POTASSIUM CHLORIDE 10 MEQ TABLET.ER PO SCH (10:17)
[2019-10-06] MEDS: POTASSIUM CHLORIDE 20 MEQ/50 ML RTU IV SCH ×2 (10:46→13:33)
--- NOTE | 2019-10-06 12:52 | PDOC PROGRESS REPORT ---
Subjective Progress Note for:: 10/06/19 Reason For Visit: CHRONIC PAROXYSMAL,ATRIAL FIB,SYNCOPE,CHF, 10/06/2019 Syncope, hypokalemia, acute kidney injury, CHF with overdiuresis and volume depletion Physical Exam Vital Signs: Temp Pulse Resp BP Pulse Ox 98.0 F 70 17 152/93 H 100 10/06/19 11:04 10/06/19 11:04 10/06/19 11:04 10/06/19 11:04 10/06/19 11:04 Intake & Output 10/05/19 10/06/19 10/07/19 06:59 06:59 06:59 Intake Total 2710 3180 1000 Output Total 350 975 Balance 2360 2205 1000 Weight 102.3 kg 103.3 kg General appearance: PRESENT: no acute distress, other - Sitting up in the chair no shortness of breath no complaints Respiratory exam: PRESENT: clear to auscultation farooq. ABSENT: rales, rhonchi, wheezes Cardiovascular exam: PRESENT: RRR. ABSENT: diastolic murmur, rubs, systolic murmur Neurological exam: PRESENT: alert, awake, oriented to person, oriented to place, oriented to time, oriented to situation, CN II-XII grossly intact. ABSENT: motor sensory deficit Psychiatric exam: PRESENT: appropriate affect, normal mood. ABSENT: homicidal ideation, suicidal ideation Results Laboratory Results: 10/06/19 04:35 10/06/19 07:30 10/06/19 10/06/19 10/06/19 04:35 04:35 07:30 WBC 3.9 L RBC 5.47 Hgb 14.0 Hct 41.5 MCV 76 L MCH 25.5 L MCHC 33.6 RDW 17.9 H Plt Count 288 Seg Neutrophils % 44.5 Sodium Cancelled 138.0 Potassium Cancelled 2.8 L* Chloride Cancelled 96 L Carbon Dioxide Cancelled 35 H Anion Gap Cancelled 7 BUN Cancelled 45 H Creatinine Cancelled 2.96 H Est GFR ( Amer) Cancelled 27 L Est GFR (Non-Af Amer) Cancelled Glucose Cancelled 92 Calcium Cancelled 8.9 Magnesium Cancelled 2.3 10/04/19 10/04/19 10/04/19 10:45 10:45 10:45 Creatine Kinase 65 CK-MB (CK-2) 0.23 Troponin I 0.064 NT-Pro-B Natriuret Pep 3610 H 10/05/19 10/06/19 10/06/19 05:04 04:35 07:30 Creatine Kinase CK-MB (CK-2) Troponin I NT-Pro-B Natriuret Pep 2820 H Cancelled 2210 H Impressions: Chest X-Ray 10/04/19 00:00 IMPRESSION: Cardiomegaly. No acute findings. Assessment and Plan - Diagnosis (1) Hypokalemia Is this a current diagnosis for this admission?: Yes (2) Hypotension Qualifiers: Hypotension type: unspecified hypotension type Qualified Code(s): I95.9 - Hypotension, unspecified Is this a current diagnosis for this admission?: Yes (3) Abnormal electrocardiogram Is this a current diagnosis for this admission?: Yes (4) Acute hyperglycemia Is this a current diagnosis for this admission?: Yes (5) Acute kidney injury superimposed on chronic kidney disease Is this a current diagnosis for this admission?: Yes (6) Diabetes Is this a current diagnosis for this admission?: Yes (7) Elevated troponin I level Is this a current diagnosis for this admission?: Yes (8) Paroxysmal atrial fibrillation Is this a current diagnosis for this admission?: Yes - Plan Summary Summary: Patient will be admitted to the hospital for adjustment of his medications. Lungs are actually clear to auscultation he only has minimal 1+ pitting edema of his extremities. No chest x-ray has been performed yet although this is been ordered. BNP is actually lower than when discharged today it is 3610, he was discharged 14 days ago it was 4730 and trending down. I believe patient became weak and lightheaded as a result of his medications, potentially bradyed down, and or became hypotensive. I do not think patient is in congestive heart failure at this time. Patient is stable in the emergency room, and in no distress Cardiology and nephrology will be consulted 10/05/2019 Patient is stable temperature 98.8 pulse 82 and regular Blood pressure 115/65, however earlier it was 105/66 and on admission it was 98/68 Oxygen saturation is 98% on room air Weight is approximately 102.3 kg. When patient was discharged from the hospital 09/21/19 his weight was recorded as 113.5 kg, and on that admission his weight was as high as 118.6 kg. It appears as though patient has lost approximately 10 kg since his last admission Patient has no symptoms of syncope, lightheaded, or generalized weakness Nephrology has made adjustments to patient's IV fluids. We will continue to rehydrate, gradually add patient's medications back to his regimen. This morning patient's potassium remains low at 2.8, will add replacements, in addition to his IV fluids 10/06/2019 Temperature 98 pulse 70 blood pressure 130/90, however this is gone up to 150/90 Patient's potassium continues to remain low today it was 2.8, however his BUN is improved to 45 and creatinine is improved to 2.96. This is probably patient's baseline. BNP admission 3610 next BNP was 2820 and today's BNP was down to 2210 I have resumed some of patient's home meds. Patient is getting multiple potassium supplements today. Patient wants to go home and may go home late this evening if his potassium improves. Patient will not go home on Zaroxolyn, and his potassium will be increased to 20 mEq daily. - Time Time Spent with patient: 25-34 minutes
--- NOTE | 2019-10-06 14:43 | Progress Note ---
Provider Note Provider Note: [facility] cardiology PROGRESS NOTE by Dr. Rimma Rubio on 10/06/2019. SUBJECTIVE: The patient denies any chest pain or discomfort. There is no shortness of breath. There is no generalized muscle weakness. There is no ventricular arrhythmia seen on the monitor. There is no PND orthopnea or leg edema. There is no palpitations, near-syncope or syncope. The patient's heart rate is well controlled in atrial fibrillation. The patient's cardiac status is stable. He has only trace leg edema. Physical EXAMINATION: The patient is mildly obese in no acute distress. He is well-groomed. Selected Entries 10/06/19 11:04 Temperature 98.0 F Temperature Oral Source Pulse Rate 70 Respiratory 17 Rate Blood Pressure 152/93 H Blood Pressure 112 Mean BP Location Left Arm BP Position Sitting O2 Sat by Pulse 100 Oximetry Oxygen Delivery Room Air Method Head: Is atraumatic normocephalic. EYES: Pupils are equal round regular reactive light accommodation. Ocular movements are normal. There is no conjunctival pallor. There is no scleral icterus. EARS: Tympanic membranes are intact. External auditory canals are clear. NOSE: There is no deviated nasal septum. There is no inflammation of the nasal mucous membrane. MOUTH: Mucous membranes of mouth are slightly dry tongue is dry. There is no ulcers. There is no bleeding from the gums. THROAT: There is no redness of the oropharynx. There is no exudates. SKIN: There is no skin rashes or petechia or ecchymosis. There is no skin lesions. NECK: Supple. There is no JVD. Carotids are equal there is no bruit. There is no lymphadenopathy. There is no goiter. There is no accessory muscle respiration use. Trachea central. LUNGS: Is clear to auscultation percussion without any rhonchi rales or wheezing. HEART: S1-S2 is heard. S1 is of variable intensity. There is no S3 gallop. There is no S4 ga llop. There is systolic murmur in the left sternal border and apex there is no rub. ABDOMEN: Is soft. There is no tender areas. Bowel sounds are well heard. There is no hepatosplenomegaly. There is no rebound guarding or rigidity. EXTREMITIES: Femorals are diminished. There is no femoral bruits. Leg pulses are diminished. There is trace pedal edema. There is some chronic venous stasis dermatitis. There is no cyanosis or clubbing. [employer]OR [employer]: Patient is conscious awake alert oriented x3 with no focal deficit. PSYCHIATRIC: Patient judgment insight are intact his affect is normal. Labs- Entire Visit 10/04/19 10/04/19 10/04/19 10:45 10:45 10:45 WBC 4.1 RBC 4.67 Hgb 12.0 L Hct 35.7 L MCV 76 L MCH 25.8 L MCHC 33.7 RDW 17.9 H Plt Count 372 Lymph % (Auto) 28.3 [place] % (Auto) 10.2 Eos % (Auto) 7.8 H Baso % (Auto) 2.0 Absolute Neuts (auto) 2.1 Absolute Lymphs (auto) 1.2 Absolute Monos (auto) 0.4 Absolute Eos (auto) 0.3 Absolute Basos (auto) 0.1 Seg Neutrophils % 51.7 PT INR APTT Sodium 132.8 L Potassium 2.7 L* Chloride 84 L Carbon Dioxide 39 H Anion Gap 10 BUN 50 H Creatinine 3.24 H Est GFR ( Amer) 24 L Est GFR (Non-Af Amer) Est GFR (MDRD) Non-Af 20 L Glucose 245 H POC Glucose Calcium 9.5 Phosphorus Magnesium Total Bilirubin 0.7 Direct Bilirubin 0.0 Neonat Total Bilirubin Not Reportable Neonat Direct Bilirubin Not Reportable Neonat Indirect Bili Not Reportable AST 27 ALT 25 Alkaline Phosphatase 54 Creatine Kinase 65 CK-MB (CK-2) 0.23 Troponin I 0.064 NT-Pro-B Natriuret Pep Total Protein 7.0 Albumin 3.8 EGFR Urine Color Urine Appearance Urine pH Ur Specific [place] Urine Protein Urine Glucose (UA) Urine Ketones Urine Blood Urine Nitrite Urine Bilirubin Urine Urobilinogen Ur Leukocyte Esterase Urine WBC (Auto) U Hyaline Cast (Auto) Urine Mucus (Auto) Urine Ascorbic Acid 10/04/19 10/04/19 10/04/19 10:45 10:45 10:45 WBC RBC Hgb Hct MCV MCH MCHC RDW Plt Count Lymph % (Auto) [place] % (Auto) Eos % (Auto) Baso % (Auto) Absolute Neuts (auto) Absolute Lymphs (auto) Absolute Monos (auto) Absolute Eos (auto) Absolute Basos (auto) Seg Neutrophils % PT 14.9 INR 1.16 APTT Sodium Potassium Chloride Carbon Dioxide Anion Gap BUN Creatinine Est GFR ( Amer) Est GFR (Non-Af Amer) Est GFR (MDRD) Non-Af Glucose POC Glucose Calcium Phosphorus Magnesium 2.2 Total Bilirubin Direct Bilirubin Neonat Total Bilirubin Neonat Direct Bilirubin Neonat Indirect Bili AST ALT Alkaline Phosphatase Creatine Kinase CK-MB (CK-2) Troponin I NT-Pro-B Natriuret Pep 3610 H Total Protein Albumin EGFR Urine Color Urine Appearance Urine pH Ur Specific [place] Urine Protein Urine Glucose (UA) Urine Ketones Urine Blood Urine Nitrite Urine Bilirubin Urine Urobilinogen Ur Leukocyte Esterase Urine WBC (Auto) U Hyaline Cast (Auto) Urine Mucus (Auto) Urine Ascorbic Acid 10/04/19 10/04/19 10/04/19 15:59 16:51 21:14 WBC RBC Hgb Hct MCV MCH MCHC RDW Plt Count Lymph % (Auto) [place] % (Auto) Eos % (Auto) Baso % (Auto) Absolute Neuts (auto) Absolute Lymphs (auto) Absolute Monos (auto) Absolute Eos (auto) Absolute Basos (auto) Seg Neutrophils % PT INR APTT Sodium 134.4 L Potassium 3.1 L Chloride 86 L Carbon Dioxide 37 H Anion Gap 11 BUN 51 H Creatinine 3.47 H Est GFR ( Amer) 22 L Est GFR (Non-Af Amer) Est GFR (MDRD) Non-Af 18 L Glucose 162 H POC Glucose 172 H 282 H Calcium 9.5 Phosphorus Magnesium Total Bilirubin Direct Bilirubin Neonat Total Bilirubin Neonat Direct Bilirubin Neonat Indirect Bili AST ALT Alkaline Phosphatase Creatine Kinase CK-MB (CK-2) Troponin I NT-Pro-B Natriuret Pep Total Protein Albumin EGFR Urine Color Urine Appearance Urine pH Ur Specific [place] Urine Protein Urine Glucose (UA) Urine Ketones Urine Blood Urine Nitrite Urine Bilirubin Urine Urobilinogen Ur Leukocyte Esterase Urine WBC (Auto) U Hyaline Cast (Auto) Urine Mucus (Auto) Urine Ascorbic Acid 10/04/19 10/05/19 10/05/19 23:09 05:04 05:04 WBC 4.0 RBC 4.90 Hgb 12.5 L Hct 37.2 L MCV 76 L MCH 25.5 L MCHC 33.7 RDW 18.0 H Plt Count 319 Lymph % (Auto) 21.0 [place] % (Auto) 11.2 Eos % (Auto) 5.1 Baso % (Auto) 1.3 Absolute Neuts (auto) 2.5 Absolute Lymphs (auto) 0.8 Absolute Monos (auto) 0.4 Absolute Eos (auto) 0.2 Absolute Basos (auto) 0.1 Seg Neutrophils % 61.4 PT INR APTT 30.0 Sodium Potassium Chloride Carbon Dioxide Anion Gap BUN Creatinine Est GFR ( Amer) Est GFR (Non-Af Amer) Est GFR (MDRD) Non-Af Glucose POC Glucose Calcium Phosphorus Magnesium Total Bilirubin Direct Bilirubin Neonat Total Bilirubin Neonat Direct Bilirubin Neonat Indirect Bili AST ALT Alkaline Phosphatase Creatine Kinase CK-MB (CK-2) Troponin I NT-Pro-B Natriuret Pep Total Protein Albumin EGFR Urine Color YELLOW Urine Appearance CLEAR Urine pH 5.0 Ur Specific [place] 1.011 Urine Protein 30 H Urine Glucose (UA) NEGATIVE Urine Ketones NEGATIVE Urine Blood NEGATIVE Urine Nitrite NEGATIVE Urine Bilirubin NEGATIVE Urine Urobilinogen NEGATIVE Ur Leukocyte Esterase NEGATIVE Urine WBC (Auto) 0 U Hyaline Cast (Auto) 3 Urine Mucus (Auto) RARE Urine Ascorbic Acid NEGATIVE 10/05/19 10/05/19 10/05/19 05:04 05:04 06:32 WBC RBC Hgb Hct MCV MCH MCHC RDW Plt Count Lymph % (Auto) [place] % (Auto) Eos % (Auto) Baso % (Auto) Absolute Neuts (auto) Absolute Lymphs (auto) Absolute Monos (auto) Absolute Eos (auto) Absolute Basos (auto) Seg Neutrophils % PT INR APTT Sodium 134.0 L Potassium 2.8 L* Chloride 87 L Carbon Dioxide 37 H Anion Gap 10 BUN 52 H Creatinine 3.27 H Est GFR ( Amer) 24 L Est GFR (Non-Af Amer) Est GFR (MDRD) Non-Af 20 L Glucose 108 POC Glucose 121 H Calcium 9.2 Phosphorus 5.2 H Magnesium Total Bilirubin 0.8 Direct Bilirubin 0.0 Neonat Total Bilirubin Not Reportable Neonat Direct Bilirubin Not Reportable Neonat Indirect Bili Not Reportable AST 29 ALT 27 Alkaline Phosphatase 52 Creatine Kinase CK-MB (CK-2) Troponin I NT-Pro-B Natriuret Pep 2820 H Total Protein 7.4 Albumin 4.0 EGFR Urine Color Urine Appearance Urine pH Ur Specific [place] Urine Protein Urine Glucose (UA) Urine Ketones Urine Blood Urine Nitrite Urine Bilirubin Urine Urobilinogen Ur Leukocyte Esterase Urine WBC (Auto) U Hyaline Cast (Auto) Urine Mucus (Auto) Urine Ascorbic Acid 10/05/19 10/05/19 10/05/19 11:02 15:45 22:06 WBC RBC Hgb Hct MCV MCH MCHC RDW Plt Count Lymph % (Auto) [place] % (Auto) Eos % (Auto) Baso % (Auto) Absolute Neuts (auto) Absolute Lymphs (auto) Absolute Monos (auto) Absolute Eos (auto) Absolute Basos (auto) Seg Neutrophils % PT INR APTT Sodium Potassium Chloride Carbon Dioxide Anion Gap BUN Creatinine Est GFR ( Amer) Est GFR (Non-Af Amer) Est GFR (MDRD) Non-Af Glucose POC Glucose 226 H 131 H 181 H Calcium Phosphorus Magnesium Total Bilirubin Direct Bilirubin Neonat Total Bilirubin Neonat Direct Bilirubin Neonat Indirect Bili AST ALT Alkaline Phosphatase Creatine Kinase CK-MB (CK-2) Troponin I NT-Pro-B Natriuret Pep Total Protein Albumin EGFR Urine Color Urine Appearance Urine pH Ur Specific [place] Urine Protein Urine Glucose (UA) Urine Ketones Urine Blood Urine Nitrite Urine Bilirubin Urine Urobilinogen Ur Leukocyte Esterase Urine WBC (Auto) U Hyaline Cast (Auto) Urine Mucus (Auto) Urine Ascorbic Acid 10/06/19 10/06/19 10/06/19 04:35 04:35 04:35 WBC 3.9 L RBC 5.47 Hgb 14.0 Hct 41.5 MCV 76 L MCH 25.5 L MCHC 33.6 RDW 17.9 H Plt Count 288 Lymph % (Auto) 31.1 [place] % (Auto) 13.4 H Eos % (Auto) 9.7 H Baso % (Auto) 1.3 Absolute Neuts (auto) 1.8 Absolute Lymphs (auto) 1.2 Absolute Monos (auto) 0.5 Absolute Eos (auto) 0.4 Absolute Basos (auto) 0.0 Seg Neutrophils % 44.5 PT INR APTT Sodium Cancelled Potassium Cancelled Chloride Cancelled Carbon Dioxide Cancelled Anion Gap Cancelled BUN Cancelled Creatinine Cancelled Est GFR ( Amer) Cancelled Est GFR (Non-Af Amer) Cancelled Est GFR (MDRD) Non-Af Cancelled Glucose Cancelled POC Glucose Calcium Cancelled Phosphorus Magnesium Cancelled Total Bilirubin Direct Bilirubin Neonat Total Bilirubin Neonat Direct Bilirubin Neonat Indirect Bili AST ALT Alkaline Phosphatase Creatine Kinase CK-MB (CK-2) Troponin I NT-Pro-B Natriuret Pep Cancelled Total Protein Albumin EGFR Cancelled Urine Color Urine Appearance Urine pH Ur Specific [place] Urine Protein Urine Glucose (UA) Urine Ketones Urine Blood Urine Nitrite Urine Bilirubin Urine Urobilinogen Ur Leukocyte Esterase Urine WBC (Auto) U Hyaline Cast (Auto) Urine Mucus (Auto) Urine Ascorbic Acid 10/06/19 10/06/19 10/06/19 06:22 07:30 07:30 WBC RBC Hgb Hct MCV MCH MCHC RDW Plt Count Lymph % (Auto) [place] % (Auto) Eos % (Auto) Baso % (Auto) Absolute Neuts (auto) Absolute Lymphs (auto) Absolute Monos (auto) Absolute Eos (auto) Absolute Basos (auto) Seg Neutrophils % PT INR APTT Sodium 138.0 Potassium 2.8 L* Chloride 96 L Carbon Dioxide 35 H Anion Gap 7 BUN 45 H Creatinine 2.96 H Est GFR ( Amer) 27 L Est GFR (Non-Af Amer) Est GFR (MDRD) Non-Af 22 L Glucose 92 POC Glucose 81 Calcium 8.9 Phosphorus Magnesium 2.3 Total Bilirubin Direct Bilirubin Neonat Total Bilirubin Neonat Direct Bilirubin Neonat Indirect Bili AST ALT Alkaline Phosphatase Creatine Kinase CK-MB (CK-2) Troponin I NT-Pro-B Natriuret Pep 2210 H Total Protein Albumin EGFR Urine Color Urine Appearance Urine pH Ur Specific [place] Urine Protein Urine Glucose (UA) Urine Ketones Urine Blood Urine Nitrite Urine Bilirubin Urine Urobilinogen Ur Leukocyte Esterase Urine WBC (Auto) U Hyaline Cast (Auto) Urine Mucus (Auto) Urine Ascorbic Acid 10/06/19 10/06/19 10/06/19 11:06 16:30 17:30 WBC RBC Hgb Hct MCV MCH MCHC RDW Plt Count Lymph % (Auto) [place] % (Auto) Eos % (Auto) Baso % (Auto) Absolute Neuts (auto) Absolute Lymphs (auto) Absolute Monos (auto) Absolute Eos (auto) Absolute Basos (auto) Seg Neutrophils % PT INR APTT Sodium 137.3 Potassium 3.7 Chloride 99 Carbon Dioxide 32 H Anion Gap 6 BUN 41 H Creatinine 2.75 H Est GFR ( Amer) 29 L Est GFR (Non-Af Amer) Est GFR (MDRD) Non-Af 24 L Glucose 136 H POC Glucose 155 H 163 H Calcium 9.2 Phosphorus Magnesium Total Bilirubin Direct Bilirubin Neonat Total Bilirubin Neonat Direct Bilirubin Neonat Indirect Bili AST ALT Alkaline Phosphatase Creatine Kinase CK-MB (CK-2) Troponin I NT-Pro-B Natriuret Pep Total Protein Albumin EGFR Urine Color Urine Appearance Urine pH Ur Specific [place] Urine Protein Urine Glucose (UA) Urine Ketones Urine Blood Urine Nitrite Urine Bilirubin Urine Urobilinogen Ur Leukocyte Esterase Urine WBC (Auto) U Hyaline Cast (Auto) Urine Mucus (Auto) Urine Ascorbic Acid IMPRESSION/RECOMMENDATION: 1. Generalized weakness and falls and dizziness secondary to overdiuresis. Causing volume depletion and hypokalemia. Agree with holding diuretics and gently rehydrating the patient and replacing t he patient's potassium. Nephrology input awaited. 2. Acute on chronic renal failure. At present patient's GFR is improved to 27. This is an improvement but still stage IV. We will leave the restarting dosage of diuretics to the technical training coordinator. 3. Hypokalemia: Replace potassium. This is being done 4. Chronic atrial fibrillation: The rate is well controlled continue current AV thomas blocking agents and also Eliquis. 5. Hypertension: Blood pressure well controlled. 6. Diabetes mellitus 7. Chronic kidney disease stage III being the baseline. Patient being rehydrated and his diuretics have been held. GFR is improved. 8. Chronic diastolic heart failure: At present compensated no evidence of any decompensated cardiac failure. Medications reviewed. Medical management and medical regimen discussed with the attending provider on the case. Also will discuss with nephrology. Medical decision making is of moderate complexity. Cardiac status is stable. Will sign off and follow the patient in the office.
--- NOTE | 2019-10-06 14:48 | PDOC PROGRESS REPORT ---
Subjective Progress Note for:: 10/06/19 Subjective:: Patient was sitting up in his chair at the time. He claim to be feeling well with no current concerns. He denied chest pain, SOB, n/v/d/c. He did noticed a slight increase in swelling on his legs since yesterday. Reason For Visit: CHRONIC PAROXYSMAL,ATRIAL FIB,SYNCOPE,CHF, Physical Exam Vital Signs: Temp Pulse Resp BP Pulse Ox 98.0 F 70 17 152/93 H 100 10/06/19 11:04 10/06/19 11:04 10/06/19 11:04 10/06/19 11:04 10/06/19 11:04 Intake & Output 10/05/19 10/06/19 10/07/19 06:59 06:59 06:59 Intake Total 2710 3180 1050 Output Total 350 975 Balance 2360 2205 1050 Weight 102.3 kg 103.3 kg General appearance: PRESENT: no acute distress, well-developed, well-nourished Mouth exam: PRESENT: moist, neck supple Respiratory exam: PRESENT: clear to auscultation farooq. ABSENT: accessory muscle use, crackles, rales, rhonchi, unlabored, wheezes Cardiovascular exam: PRESENT: +S1, +S2 GI/Abdominal exam: PRESENT: soft. ABSENT: tenderness Extremities exam: PRESENT: other - -trace+ edema. ABSENT: tenderness Musculoskeletal exam: PRESENT: normal inspection. ABSENT: tenderness Neurological exam: PRESENT: alert, awake, oriented to person, oriented to place, oriented to time, oriented to situation Skin exam: PRESENT: dry, intact, warm. ABSENT: cyanosis Results Laboratory Results: 10/06/19 04:35 10/06/19 07:30 10/06/19 10/06/19 10/06/19 04:35 04:35 07:30 WBC 3.9 L RBC 5.47 Hgb 14.0 Hct 41.5 MCV 76 L MCH 25.5 L MCHC 33.6 RDW 17.9 H Plt Count 288 Seg Neutrophils % 44.5 Sodium Cancelled 138.0 Potassium Cancelled 2.8 L* Chloride Cancelled 96 L Carbon Dioxide Cancelled 35 H Anion Gap Cancelled 7 BUN Cancelled 45 H Creatinine Cancelled 2.96 H Est GFR ( Amer) Cancelled 27 L Est GFR (Non-Af Amer) Cancelled Glucose Cancelled 92 Calcium Cancelled 8.9 Magnesium Cancelled 2.3 10/04/19 10/04/19 10/04/19 10:45 10:45 10:45 Creatine Kinase 65 CK-MB (CK-2) 0.23 Troponin I 0.064 NT-Pro-B Natriuret Pep 3610 H 10/05/19 10/06/19 10/06/19 05:04 04:35 07:30 Creatine Kinase CK-MB (CK-2) Troponin I NT-Pro-B Natriuret Pep 2820 H Cancelled 2210 H Impressions: Chest X-Ray 10/04/19 00:00 IMPRESSION: Cardiomegaly. No acute findings. Assessment & Plan - Diagnosis (1) Dehydration Is this a current diagnosis for this admission?: Yes Plan: recommend stopping IV fluids and just going to PO intake. Patient appears to no longer be dehydrated (2) Acute kidney injury superimposed on chronic kidney disease Is this a current diagnosis for this admission?: Yes Plan: Looks to be getting back to baseline. Switch to PO fluids and start furosemide 40mg qd on discharge. Follow with Dr. Allred in 10 to 14 days. (3) Hypokalemia Is this a current diagnosis for this admission?: Yes Plan: Patient is to receive klor-con 40mEQ PO bid, also need to add to 20mEQ k-riders and recheck in the pm. Patient needs to be discharged on PO potassium. Recommend once he is stable to start 20mEQ daily. Will follow up with labs shortly after discharge to see if it needs to be increased or decreased. (4) Hypotension Qualifiers: Hypotension type: unspecified hypotension type Qualified Code(s): I95.9 - Hypotension, unspecified Is this a current diagnosis for this admission?: Yes Plan: resolved, actually becoming hypertensive. Will need to restart bp meds on discharge. (5) Congestive heart failure (CHF) Qualifiers: Heart failure type: diastolic Heart failure chronicity: acute on chronic Qualified Code(s): I50.33 - Acute on chronic diastolic (congestive) heart failure Plan: Patient has a slight increase in edema since yesterday. Will need to start furosemide 40mg qd and follow up with Dr. Allred for possible increases in furosemide. Hold on metolazone for now. (6) Diabetes mellitus type 2 in obese Is this a current diagnosis for this admission?: Yes
[2019-10-06] MEDS ORDERED: GLIPIZIDE 5 MG TABLET PO SCH (16:00)
[2019-10-06] MEDS ORDERED: POTASSIUM CHLORIDE 10 MEQ TABLET.ER PO ONE (16:00)
[2019-10-06 18:04] LABS: ANION GAP 6 (5-19); BLOOD UREA NITROGEN 41 mg/dL (7-20); CALCIUM 9.2 mg/dL (8.4-10.2); CARBON DIOXIDE 32 mmol/L (22-30); CHLORIDE 99 mmol/L (98-107); GLUCOSE 136 mg/dL (75-110); POTASSIUM 3.7 mmol/L (3.6-5.0)
--- NOTE | 2019-10-06 18:33 | PDOC DISCHARGE SUMMARY ---
Impression - Admit/DC Date/PCP Admission Date/Primary Care Provider: 10/04/19 12:13 ERMA DESAI Discharge Date: 10/06/19 - Discharge Diagnosis (1) Hypokalemia Is this a current diagnosis for this admission?: Yes (2) Hypotension Is this a current diagnosis for this admission?: Yes (3) Abnormal electrocardiogram Is this a current diagnosis for this admission?: Yes (4) Acute hyperglycemia Is this a current diagnosis for this admission?: Yes (5) Acute kidney injury superimposed on chronic kidney disease Is this a current diagnosis for this admission?: Yes (6) Diabetes Is this a current diagnosis for this admission?: Yes (7) Elevated troponin I level Is this a current diagnosis for this admission?: Yes (8) Paroxysmal atrial fibrillation Is this a current diagnosis for this admission?: Yes - Assessment Summary: Patient will be admitted to the hospital for adjustment of his medications. Lungs are actually clear to auscultation he only has minimal 1+ pitting edema of his extremities. No chest x-ray has been performed yet although this is been ordered. BNP is actually lower than when discharged today it is 3610, he was discharged 14 days ago it was 4730 and trending down. I believe patient became weak and lightheaded as a result of his medications, potentially bradyed down, and or became hypotensive. I do not think patient is in congestive heart failure at this time. Patient is stable in the emergency room, and in no distress Cardiology and nephrology will be consulted 10/05/2019 Patient is stable temperature 98.8 pulse 82 and regular Blood pressure 115/65, however earlier it was 105/66 and on admission it was 98/68 Oxygen saturation is 98% on room air Weight is approximately 102.3 kg. When patient was discharged from the hospital 09/21/19 his weight was recorded as 113.5 kg, and on that admission his weight was as high as 118.6 kg. It appears as though patient has lost approximately 10 kg since his last admission Patient has no symptoms of syncope, lightheaded, or generalized weakness Nephrology has made adjustments to patient's IV fluids. We will continue to rehydrate, gradually add patient's medications back to his regimen. This morning patient's potassium remains low at 2.8, will add replacements, in addition to his IV fluids 10/06/2019 Temperature 98 pulse 70 blood pressure 130/90, however this is gone up to 150/90 Patient's potassium continues to remain low today it was 2.8, however his BUN is improved to 45 and creatinine is improved to 2.96. This is probably patient's baseline. BNP admission 3610 next BNP was 2820 and today's BNP was down to 2210 I have resumed some of patient's home meds. Patient is getting multiple potassium supplements today. Patient wants to go home and may go home late this evening if his potassium improves. Patient will not go home on Zaroxolyn, and his potassium will be increased to 20 mEq daily. Electrolytes performed at 1730 showed a sodium 137 potassium was up to 3.7 BUN 41 creatinine improved to 2.75 he was discharged home this evening on Lasix 40 mg daily Potassium 20 mEq daily and Lipitor 20 mg daily Per nephrology he is to follow-up in 10 to 14 days Cardiology will see him within the next 5 to 7 days he is discharged home in good condition - Additional Information Resuscitation Status: Full Code Discharge Diet: Cardiac, Other (Comments) Discharge Activity: Activity As Tolerated, Balance Activity w/Rest, Weigh Daily Referrals: SERGIO CASTRO MD [ACTIVE STAFF] - (OFFICE STATES THEY WILL HAVE TO CALL PATIENT WITH A FOLLOW UP APPT. DATE/TIME.) ERMA DESAI MD [Primary Care Provider] - Follow up as needed (LEFT A MESSAGE FOR OFFICE TO CALL PATIENT WITH A HOSPITAL FOLLOW UP APPT.) Prescriptions: Furosemide [Lasix 40 mg Tablet] 40 mg PO QAM 30 Days #30 tablet Atorvastatin Calcium [Lipitor 20 mg Tablet] 20 mg PO QHS 30 Days #30 tablet Potassium Chloride 20 meq PO DAILY 30 Days #30 tablet.er Home Medications: Apixaban [Eliquis 2.5 mg Tablet] 2.5 mg PO BID #60 tablet 04/23/18 Atorvastatin Calcium [Lipitor 20 mg Tablet] 20 mg PO QHS #30 tablet 04/23/18 Glipizide [Glucotrol 5 mg Tablet] 2.5 mg PO BIDACBS #30 tablet 07/15/19 Hydralazine HCl 100 mg PO Q8 1 Days #90 tablet 07/15/19 Insulin Glargine,Hum.rec.anlog [Lantus Insulin 100 Unit/mL Insulin Pen] 10 unit SUBCUT QHS #10 ml 01/24/20 Nifedipine [Nifedipine ER] 90 mg PO DAILY #30 tablet.er 07/15/19 Losartan Potassium [Cozaar 25 mg Tablet] 25 mg PO BID 30 Days #60 tablet 09/21/19 Metoprolol Succinate [Toprol Xl 25 mg Tab.sr] 25 mg PO Q12 tab.sr.24h 09/21/19 Carvedilol [Coreg 12.5 mg Tablet] 25 mg PO Q12 10/04/19 Clonidine HCl [Catapres 0.2 mg Tablet] 0.2 mg PO TID 10/04/19 Iron 28mg 28 mg PO DAILY 10/04/19 Isosorbide Mononitrate [Imdur 60 mg Tablet.er] 60 mg PO DAILY 10/04/19 Spironolactone 50 mg PO DAILY 10/04/19 Acetaminophen [Tylenol 325 mg Tablet] 650 mg PO Q4HP PRN tablet 10/06/19 Atorvastatin Calcium [Lipitor 20 mg Tablet] 20 mg PO QHS 30 Days #30 tablet 10/06/19 Docusate Sodium [Colace 100 mg Capsule] 100 mg PO DAILY capsule 10/06/19 Furosemide [Lasix 40 mg Tablet] 40 mg PO QAM 30 Days #30 tablet 10/06/19 Potassium Chloride 20 meq PO DAILY 30 Days #30 tablet.er 10/06/19 History of Present Illiness History of Present Illness: CATHY HALL is a 59 year old male admitted through the emergency room with a 1 day history of syncope.. Patient states that yesterday he had 2 separate episodes where he got weak and lightheaded but never lost consciousness. 1 episode similar today.. Patient was just discharged home from the hospital on 09/16/2019 [facility] for atrial fib and congestive heart failure. Patient actually saw cardiology last week and was doing well. Ever his primary care provider increased some of his medications since then, yesterday he had his syncopal episodes. Patient denies chest pain or shortness of breath. Patient states he is lost about 20 pounds since he was discharged 14 days ago. Patient appears to be in no distress at this time is able to speak in full sentences. Patient is going to be admitted to the hospital for short time for medication adjustment and further diagnostic studies. Patient will be seen in consultation by cardiology and nephrology. Physical Exam Vital Signs: Temp Pulse Resp BP Pulse Ox 98 F 73 17 131/84 H 100 10/06/19 15:23 10/06/19 15:23 10/06/19 15:23 10/06/19 15:23 10/06/19 15:23 Intake & Output 10/05/19 10/06/19 10/07/19 06:59 06:59 06:59 Intake Total 2710 3180 1500 Output Total 350 975 650 Balance 2360 2205 850 Weight 102.3 kg 103.3 kg Results Laboratory Results: WBC 3.9 10^3/uL (4.0-10.5) L 10/06/19 04:35 RBC 5.47 10^6/uL (4.35-5.55) 10/06/19 04:35 Hgb 14.0 g/dL (13.5-17.0) 10/06/19 04:35 Hct 41.5 % (37.9-51.0) 10/06/19 04:35 MCV 76 fl (80-97) L 10/06/19 04:35 MCH 25.5 pg (27.0-33.4) L 10/06/19 04:35 MCHC 33.6 g/dL (32.0-36.0) 10/06/19 04:35 RDW 17.9 % (11.5-14.0) H 10/06/19 04:35 Plt Count 288 10^3/uL (150-450) 10/06/19 04:35 Lymph % (Auto) 31.1 % (13-45) 10/06/19 04:35 [place] % (Auto) 13.4 % (3-13) H 10/06/19 04:35 Eos % (Auto) 9.7 % (0-6) H 10/06/19 04:35 Baso % (Auto) 1.3 % (0-2) 10/06/19 04:35 Absolute Neuts (auto) 1.8 10^3/uL (1.7-8.2) 10/06/19 04:35 Absolute Lymphs (auto) 1.2 10^3/uL (0.5-4.7) 10/06/19 04:35 Absolute Monos (auto) 0.5 10^3/uL (0.1-1.4) 10/06/19 04:35 Absolute Eos (auto) 0.4 10^3/uL (0.0-0.6) 10/06/19 04:35 Absolute Basos (auto) 0.0 10^3/uL (0.0-0.2) 10/06/19 04:35 Seg Neutrophils % 44.5 % (42-78) 10/06/19 04:35 PT 14.9 SEC (11.4-15.4) 10/04/19 10:45 INR 1.16 10/04/19 10:45 APTT 30.0 SEC (23.5-35.8) 10/05/19 05:04 Sodium 137.3 mmol/L (137-145) 10/06/19 17:30 Potassium 3.7 mmol/L (3.6-5.0) 10/06/19 17:30 Chloride 99 mmol/L (98-107) 10/06/19 17:30 Carbon Dioxide 32 mmol/L (22-30) H 10/06/19 17:30 Anion Gap 6 (5-19) 10/06/19 17:30 BUN 41 mg/dL (7-20) H 10/06/19 17:30 Creatinine 2.75 mg/dL (0.52-1.25) H 10/06/19 17:30 Est GFR ( Amer) 29 (>60) L 10/06/19 17:30 Est GFR (Non-Af Amer) Cancelled 10/06/19 04:35 Est GFR (MDRD) Non-Af 24 (>60) L 10/06/19 17:30 Glucose 136 mg/dL (75-110) H 10/06/19 17:30 POC Glucose 163 mg/dL (70-110) H 10/06/19 16:30 Calcium 9.2 mg/dL (8.4-10.2) 10/06/19 17:30 Phosphorus 5.2 mg/dL (2.5-4.5) H 10/05/19 05:04 Magnesium 2.3 mg/dL (1.6-2.3) 10/06/19 07:30 Total Bilirubin 0.8 mg/dL (0.2-1.3) 10/05/19 05:04 Direct Bilirubin 0.0 mg/dL (0.0-0.4) 10/05/19 05:04 Neonat Total Bilirubin Not Reportable 10/05/19 05:04 Neonat Direct Bilirubin Not Reportable 10/05/19 05:04 Neonat Indirect Bili Not Reportable 10/05/19 05:04 AST 29 U/L (17-59) 10/05/19 05:04 ALT 27 U/L (<50) 10/05/19 05:04 Alkaline Phosphatase 52 U/L (38-126) 10/05/19 05:04 Creatine Kinase 65 U/L (55-170) 10/04/19 10:45 CK-MB (CK-2) 0.23 ng/mL (<4.55) 10/04/19 10:45 Troponin I 0.064 ng/mL 10/04/19 10:45 NT-Pro-B Natriuret Pep 2210 pg/mL (<125) H 10/06/19 07:30 Total Protein 7.4 g/dL (6.3-8.2) 10/05/19 05:04 Albumin 4.0 g/dL (3.5-5.0) 10/05/19 05:04 EGFR Cancelled 10/06/19 04:35 Urine Color YELLOW 10/04/19 23:09 Urine Appearance CLEAR 10/04/19 23:09 Urine pH 5.0 (5.0-9.0) 10/04/19 23:09 Ur Specific [place] 1.011 10/04/19 23:09 Urine Protein 30 mg/dL (NEGATIVE) H 10/04/19 23:09 Urine Glucose (UA) NEGATIVE mg/dL (NEGATIVE) 10/04/19 23:09 Urine Ketones NEGATIVE mg/dL (NEGATIVE) 10/04/19 23:09 Urine Blood NEGATIVE (NEGATIVE) 10/04/19 23:09 Urine Nitrite NEGATIVE (NEGATIVE) 10/04/19 23:09 Urine Bilirubin NEGATIVE (NEGATIVE) 10/04/19 23:09 Urine Urobilinogen NEGATIVE mg/dL (<2.0) 10/04/19 23:09 Ur Leukocyte Esterase NEGATIVE (NEGATIVE) 10/04/19 23:09 Urine WBC (Auto) 0 /HPF 10/04/19 23:09 U Hyaline Cast (Auto) 3 /LPF 10/04/19 23:09 Urine Mucus (Auto) RARE /LPF 10/04/19 23:09 Urine Ascorbic Acid NEGATIVE (NEGATIVE) 10/04/19 23:09 10/04/19 10/04/19 10/05/19 10:45 10:45 05:04 CK-MB (CK-2) 0.23 Troponin I 0.064 NT-Pro-B Natriuret Pep 3610 H 2820 H 10/06/19 10/06/19 04:35 07:30 CK-MB (CK-2) Troponin I NT-Pro-B Natriuret Pep Cancelled 2210 H Impressions: Chest X-Ray 10/04/19 00:00 IMPRESSION: Cardiomegaly. No acute findings. Stroke Is this a Stroke Patient?: No Acute Heart Failure - Is this a Heart Failure Patient?: Yes Documentation of LVEF assessment?: Yes LVEF < 40%?: No- if no continue to question #3 3. Anticoagulant therapy for permanect/persistent/paraoxysmal Afib or Aflutter: Yes Follow-up Appointment scheduled within 7 days?: Yes
[2019-10-06 19:25] VITALS: BP 105/66
[2019-10-06] MEDS ORDERED: INSULIN GLARGINE,HUM.REC.ANLOG 1,000 UNIT/10 ML VIAL SUBCUT SCH (22:00)
== END 2019-10-06 19:47 | disposition home or self-care (01) | DRG 312 ==
LOC: ER 10:45 → EH 12:13 → 4N 14:32
PROVIDERS: ADMIT Hospitalist; ATTEND Physician Assistant
DX: I95.2 Hypotension due to drugs (principal); N17.9 Acute kidney failure, unspecified; I13.0 Hypertensive heart and chronic kidney disease with heart failure and stage 1 through stage 4 chronic kidney disease, or unspecified chronic kidney disease; N25.81 Secondary hyperparathyroidism of renal origin; I50.32 Chronic diastolic (congestive) heart failure; E83.39 Other disorders of phosphorus metabolism; D63.1 Anemia in chronic kidney disease; N18.3 Chronic kidney disease, stage 3 (moderate); E11.22 Type 2 diabetes mellitus with diabetic chronic kidney disease; I48.0 Paroxysmal atrial fibrillation; E86.0 Dehydration; E87.6 Hypokalemia; E11.65 Type 2 diabetes mellitus with hyperglycemia; E66.9 Obesity, unspecified; E78.5 Hyperlipidemia, unspecified; G47.30 Sleep apnea, unspecified; I87.2 Venous insufficiency (chronic) (peripheral); R79.89 Other specified abnormal findings of blood chemistry; Z79.4 Long term (current) use of insulin; Z79.899 Other long term (current) drug therapy; Z79.01 Long term (current) use of anticoagulants; Z83.3 Family history of diabetes mellitus; Z84.1 Family history of disorders of kidney and ureter
CPT/HCPCS: 36415; 71046; 80048; 80053; 81001; 82550; 82553; 82962; 83735; 83880; 84100; 84484; 85025; 85610; 85730; 93005; 93010; 96361; 96374; 99285; J1815; J2405; J3480; J3490; J7040; J7060

== ENCOUNTER 2020-05-17 03:39 | Inpatient (IN) | payer BC ==
[2020-05-17] MEDS ORDERED: NITROGLYCERIN/D5W 50 MG/250 ML RTUINJ IV PRN ×2 (03:50→05:42)
[2020-05-17] MEDS ORDERED: BUMETANIDE INJ/PF 1 MG/4 ML SDV IV ONE (03:50)
[2020-05-17] MEDS ORDERED: DILTIAZEM HCL INJ 25 MG/5 ML VIAL IV ONE (03:51)
[2020-05-17] MEDS ORDERED: FUROSEMIDE INJ/PF 20 MG/2 ML SDV IV ONE (03:53)
--- NOTE | 2020-05-17 03:59 | ER Document Report ---
ED Respiratory Problem - General Stated Complaint: DIFFICULTY BREATHING Time Seen by Provider: 05/17/20 03:50 Primary Care Provider: ERMA DESAI MD [Primary Care Provider] - Follow up as needed Mode of Arrival: Medic Information source: Patient, Emergency Med Personnel - [facility] Notes: 59-year-old black male arrives by EMS with [facility] as spokesperson. Patient is having BiPAP as we received the patient in room #5. He was satting 95%. He initially was found to be 65% at home. Patient does not use oxygen at home. He does have a history of atrial fibrillation and CHF. By electronic medical records it appears he had new onset of atrial fibrillation in 2017. Also has had dyspnea hypertensive emergency syncope and ARF in the past. Patient denies any edema of his legs. He denies any mopped assist or Covid or influenza. He denies any sore throat or hematemesis or nosebleeds. TRAVEL OUTSIDE OF THE [place] IN LAST 30 DAYS: No - HPI Patient complains to provider of: CHF, Short of breath Onset: Just prior to arrival Quality of pain: Fullness Severity: Severe Pain Level: 5 Context: Hx CHF Short of Breath: Severe Chest pain/discomfort: Heaviness - Related Data Allergies/Adverse Reactions: No Known Allergies Allergy (Verified 04/20/18 11:04) Past Medical History - General Information source: Patient, Emergency Med Personnel - Social History Smoking Status: Never Smoker Cigarette use (# per day): No Chew tobacco use (# tins/day): No Smoking Education Provided: No Frequency of alcohol use: None Drug Abuse: None Lives with: Family Family History: None, Reviewed & Not Pertinent Patient has suicidal ideation: No Patient has homicidal ideation: No - Past Medical History Cardiac Medical History: Reports: Hx Atrial Fibrillation, Hx Congestive Heart Failure, Hx Hypercholesterolemia, Hx Hypertension Pulmonary Medical History: Reports: Hx Sleep Apnea - Patient underwent an incomplete sleep study at [facility] recently. Denies: Hx Tuberculosis Endocrine Medical History: Reports: Hx Diabetes Mellitus Type 1, Hx Diabetes Mellitus Type 2 Renal/ Medical History: Denies: Hx Peritoneal Dialysis Psychiatric Medical History: Denies: Hx Depression Past Surgical History: Denies: Hx Appendectomy, Hx Bowel Surgery, Hx Cholecystectomy, Hx Coronary Artery Bypass Graft, Hx Gastric Bypass Surgery, Hx Herniorrhaphy, Hx Internal Defibrillator, Hx Pacemaker, Hx Tonsillectomy, Hx Valve Replacement, Hx Vascular Surgery - Immunizations Hx Diphtheria, Pertussis, Tetanus Vaccination: Yes Review of Systems - Review of Systems Constitutional: See HPI, Weakness EENT: No symptoms reported Cardiovascular: See HPI, Heart racing, Orthopnea, Dyspnea, Dizziness, Lightheaded Respiratory: See HPI, Short of breath, Wheezing Gastrointestinal: No symptoms reported Genitourinary: No symptoms reported Male Genitourinary: No symptoms reported Musculoskeletal: No symptoms reported Skin: No symptoms reported Hematologic/Lymphatic: No symptoms reported Neurological/Psychological: No symptoms reported -: Yes All other systems reviewed and negative Physical Exam - Vital signs Vitals: Resp Pulse Ox 19 88 L 05/17/20 03:39 05/17/20 03:39 Interpretation: Normal - General General appearance: Appears well, Alert - HEENT Head: Normocephalic, Atraumatic Eyes: Normal Pupils: PERRL - Respiratory Respiratory status: Respiratory distress, Tachypnea Chest status: Nontender Breath sounds: Rales Chest palpation: Normal - Cardiovascular Rhythm: Tachycardia Heart sounds: Normal auscultation Murmur: No - Abdominal Inspection: Normal Distension: No distension Bowel sounds: Normal Tenderness: Nontender Organomegaly: No organomegaly - Rectal Prostate: Other - Deferred - Genitourinary Scrotum: Other - Deferred - Back Back: Normal, Nontender - Extremities General upper extremity: Normal inspection, Nontender, Normal color, Normal ROM, Normal temperature General lower extremity: Normal inspection, Nontender, Normal color, Normal ROM, Normal temperature, Normal weight bearing. No: Barbara's sign - Neurological Neuro grossly intact: Yes Cognition: Normal Orientation: AAOx4 [place] Coma Scale Eye Opening: Spontaneous [place] Coma Scale Verbal: Oriented [place] Coma Scale Motor: Obeys Commands [place] Coma Scale Total: 15 Speech: Normal Motor strength normal: LUE, RUE, LLE, RLE Sensory: Normal - Psychological Associated symptoms: Normal affect, Normal mood - Skin Skin Temperature: Warm Skin Moisture: Dry Skin Color: Normal Course - Vital Signs Vital signs: Temp Pulse Resp BP Pulse Ox 10 L 167/102 H 99 05/17/20 04:21 05/17/20 04:21 05/17/20 04:21 - Laboratory Result Diagrams: 05/17/20 03:44 05/17/20 03:44 Laboratory results interpreted by me: 1105/17/20 05/17/20 03:44 03:44 03:44 RBC 5.63 H MCV 78 L MCH 25.9 L RDW 15.6 H Lymph % (Auto) 6.9 L Seg Neutrophils % 86.8 H Sodium 135.6 L BUN 35 H Creatinine 2.64 H Est GFR ( Amer) 30 L Est GFR (MDRD) Non-Af 25 L Glucose 251 H Creatine Kinase 190 H NT-Pro-B Natriuret Pep 6900 H Critical Care Note - Critical Care Note Comments: I discussed this case with Dr. Zapien at 0 430 and because patient is on nitro drip as well as Cardizem he advises calling ICU. I spoke with Brandon at 0 445 and she will see the patient in room #5. She saw patient in room 0 450 and advises he can be admitted at IM Discharge - Discharge Clinical Impression: Respiratory distress, acute, Hypertensive urgency, Atrial fibrillation with RVR Congestive heart failure (CHF) Qualifiers: Heart failure type: unspecified Heart failure chronicity: acute on chronic Qualified Code(s): I50.9 - Heart failure, unspecified Condition: Stable Disposition: ADMITTED INPATIENT Admitting Provider: Wilberto Adame Unit Admitted: ICU Referrals: ERMA DESAI MD [Primary Care Provider] - Follow up as needed
[2020-05-17 04:22] LABS: INTERNATIONAL RATION (INR) 0.99; PROTHROMBIN TIME 13.3 SEC (11.4-15.4)
[2020-05-17 04:23] LABS: PARTIAL THROMBOPLASTIN TIME 28.8 SEC (23.5-35.8)
[2020-05-17 04:27] LABS: ALBUMIN 3.8 g/dL (3.5-5.0); ALKALINE PHOSPHATASE 68 U/L (38-126); ANION GAP 10 (5-19); ASPARTATE AMINO TRANSFERASE 26 U/L (17-59); BILIRUBIN,DIRECT 0.2 mg/dL (0.0-0.4); BLOOD UREA NITROGEN 35 mg/dL (7-20); CALCIUM 9.6 mg/dL (8.4-10.2); CARBON DIOXIDE 26 mmol/L (22-30); CHLORIDE 100 mmol/L (98-107); CREATINE KINASE 190 U/L (55-170); GLUCOSE 251 mg/dL (75-110); POTASSIUM 3.7 mmol/L (3.6-5.0); TOTAL PROTEIN 7.3 g/dL (6.3-8.2)
[2020-05-17 04:29] LABS: ABSOLUTE BASOPHILS # (AUTO) 0.1 10^3/uL (0.0-0.2); ABSOLUTE EOSINOPHILS # (AUTO) 0.1 10^3/uL (0.0-0.6); ABSOLUTE LYMPHOCYTES (AUTO) 0.6 10^3/uL (0.5-4.7); ABSOLUTE MONOCYTES (AUTO) 0.3 10^3/uL (0.1-1.4); ABSOLUTE NEUT (AUTO) 7.6 10^3/uL (1.7-8.2); BASOPHILS % (AUTO) 0.8 % (0-2); EOSINOPHILS % (AUTO) 1.6 % (0-6); HEMATOCRIT 43.9 % (37.9-51.0); HEMOGLOBIN 14.6 g/dL (13.5-17.0); LYMPHOCYTES % (AUTO) 6.9 % (13-45); MEAN CORPUSCULAR HEMOGLOBIN 25.9 pg (27.0-33.4); MEAN CORPUSCULAR HGB CONC 33.3 g/dL (32.0-36.0); MEAN CORPUSCULAR VOLUME 78 fl (80-97); MONOCYTES % (AUTO) 3.9 % (3-13); PLATELET COUNT 282 10^3/uL (150-450); RED BLOOD COUNT 5.63 10^6/uL (4.35-5.55); RED CELL DISTRIBUTION WIDTH 15.6 % (11.5-14.0); SEGMENTED NEUTROPHILS % (AUTO) 86.8 % (42-78); TOTAL CELLS COUNTED % (AUTO) 100 %; WHITE BLOOD COUNT 8.8 10^3/uL (4.0-10.5)
[2020-05-17 04:52] LABS: TROPONIN I 0.064 ng/mL
--- NOTE | 2020-05-17 05:10 | RADIOLOGY REPORT (SQ) ---
CLINICAL HISTORY: sob COMPARISON: 09/16/2019. TECHNIQUE: XR CHEST 1 VIEW 05/17/2020 3:52 AM [facility] FINDINGS: Heart is enlarged. There are moderate bilateral perihilar and bibasilar consolidations. There is no pleural effusion. There is no pneumothorax. There are no acute osseous findings. IMPRESSION: Extensive bilateral pneumonia. No significant change.
[2020-05-17] MEDS ORDERED: ACETAMINOPHEN 325 MG TABLET PO PRN (05:42)
[2020-05-17] MEDS ORDERED: MAG HYDROX/AL HYDROX/SIMETH SUSP 30 ML UDCUP PO PRN (05:50)
[2020-05-17] MEDS ORDERED: ONDANSETRON HCL INJ/PF 4 MG/2 ML SDV IV PRN (05:50)
[2020-05-17] MEDS ORDERED: METOPROLOL TARTRATE PF/INJ 5 MG/5 ML SDV IV PRN (05:53)
[2020-05-17 05:54] LABS: ARTERIAL BLOOD BASE EXCESS -0.4 mmol/L; ARTERIAL BLOOD H2CO3 1.15 mmol/L (1.05-1.35); ARTERIAL BLOOD HCO3 23.9 mmol/L (20-24); ARTERIAL BLOOD O2 SATURATION 99.9 % (94-98); ARTERIAL BLOOD PCO2 38.2 mmHg (35-45); ARTERIAL BLOOD PH 7.41 (7.35-7.45); ARTERIAL BLOOD PO2 468.6 mmHg (80-100); ARTERIAL BLOOD TOTAL CO2 25.1 mmol/L (23-27)
[2020-05-17 05:55] LABS: ARTERIAL BLOOD FIO2 100%
[2020-05-17] MEDS ORDERED: NIFEDIPINE 30 MG TAB.ER.24 PO SCH (06:00)
[2020-05-17] MEDS ORDERED: CARVEDILOL 12.5 MG TABLET PO SCH (06:00)
[2020-05-17] MEDS ORDERED: POTASSIUM CHLORIDE 10 MEQ TABLET.ER PO SCH (06:00)
[2020-05-17] MEDS ORDERED: DEXTROSE 50%-WATER 25 GM/50 ML DISP.SYRIN IV PRN ×2 (06:13)
[2020-05-17] MEDS ORDERED: DEXTROSE 40% GEL 15 GM TUBE PO PRN ×2 (06:13)
[2020-05-17] MEDS ORDERED: GLUCAGON,HUMAN RECOMB 1 MG INJ IM PRN (06:13)
--- NOTE | 2020-05-17 06:13 | PDOC H&P ---
History of Present Illness Admission Date/PCP: 05/17/20 05:01 ERMA DESAI Patient complains of: sob History of Present Illness: CATHY HALL is a 59 year old male with history of hypertension, CHF, atrial fibrillation, CKD, who presents to the hospital with complaints of acute onset shortness of breath which started yesterday night. Patient also endorsed o rthopnea at the time. He denies any fever or chills. Denies any chest pain at the episode. His shortness of breath worsened to the point where he became breathless and called the ambulance. On arrival of the ambulance, patient's SPO2 was in the 60s on room air. He was noted to be hyper per tensive in the 200s. He was placed on a CPAP without much improvement past low to mid 80s. In the ER he was placed on BiPAP 100%. He received Bumex. Patient notably takes Lasix at home daily. States he has not been missing any of the doses of the Lasix or his high blood pressure medications and only missed his Lasix dose last night. He denies any sick contacts. Denies any muscle aches nausea/vo miting/diarrhea. After receiving diuretic in the ER and being placed on a nitro drip, patient reports feeling better on BiPAP currently weaned to 50%. Past Medical History Cardiac Medical History: Reports: Atrial Fibrillation, Congestive Heart Failure, Hyperlipidema, Hypertension Pulmonary Medical History: Reports: Sleep Apnea - Patient underwent an incomplete sleep study at [facility] recently. Denies: Tuberculosis Endocrine Medical History: Reports: Diabetes Mellitus Type 2 Renal/ Medical History: Reports: Chronic Kidney Disease Psychiatric Medical History: Denies: Depression Past Surgical History Past Surgical History: Denies: Appendectomy, Cholecystectomy, Coronary Artery Bypass Graft, Gastric Bypass Surgery, Herniorrhaphy, Internal Defibrillator, Pacemaker, Tonsillectomy, Valve Replacement, Vascular Surgery Social History Lives with: Family Smoking Status: Never Smoker Frequency of Alcohol Use: None Hx Recreational Drug Use: No Drugs: None Hx Prescription Drug Abuse: No - Advance Directive Resuscitation Status: Full Code Family History Family History: Hypertension Parental Family History Reviewed: Yes Children Family History Reviewed: Yes Sibling(s) Family History Reviewed.: Yes Medication/Allergy Home Medications: Apixaban [Eliquis 2.5 mg Tablet] 2.5 mg PO BID #60 tablet 04/23/18 Atorvastatin Calcium [Lipitor 20 mg Tablet] 20 mg PO QHS #30 tablet 04/23/18 Glipizide [Glucotrol 5 mg Tablet] 2.5 mg PO BIDACBS #30 tablet 07/15/19 Hydralazine HCl 100 mg PO Q8 1 Days #90 tablet 07/15/19 Insulin Glargine,Hum.rec.anlog [Lantus Insulin 100 Unit/mL Insulin Pen] 10 unit SUBCUT QHS #10 ml 07/15/19 Nifedipine [Nifedipine ER] 90 mg PO DAILY #30 tablet.er 07/15/19 Losartan Potassium [Cozaar 25 mg Tablet] 25 mg PO BID 30 Days #60 tablet 09/21/19 Metoprolol Succinate [Toprol Xl 25 mg Tab.sr] 25 mg PO Q12 tab.sr.24h 09/21/19 Carvedilol [Coreg 12.5 mg Tablet] 25 mg PO Q12 10/04/19 Clonidine HCl [Catapres 0.2 mg Tablet] 0.2 mg PO TID 10/04/19 Iron 28mg 28 mg PO DAILY 10/04/19 Isosorbide Mononitrate [Imdur 60 mg Tablet.er] 60 mg PO DAILY 10/04/19 Spironolactone 50 mg PO DAILY 10/04/19 Acetaminophen [Tylenol 325 mg Tablet] 650 mg PO Q4HP PRN tablet 10/06/19 Atorvastatin Calcium [Lipitor 20 mg Tablet] 20 mg PO QHS 30 Days #30 tablet 10/06/19 Docusate Sodium [Colace 100 mg Capsule] 100 mg PO DAILY capsule 10/06/19 Furosemide [Lasix 40 mg Tablet] 40 mg PO QAM 30 Days #30 tablet 10/06/19 Potassium Chloride 20 meq PO DAILY 30 Days #30 tablet.er 10/06/19 Allergies/Adverse Reactions: No Known Allergies Allergy (Verified 04/20/18 11:04) Review of Systems Constitutional: ABSENT: chills, fever(s) Eyes: ABSENT: visual disturbances Cardiovascular: PRESENT: dyspnea on exertion, orthropnea. ABSENT: chest pain Respiratory: PRESENT: dyspnea. ABSENT: cough, sputum Gastrointestinal: ABSENT: abdominal pain, nausea, vomiting Genitourinary: ABSENT: dysuria Musculoskeletal: ABSENT: back pain Integumentary: ABSENT: diaphoresis Neurological: ABSENT: dizziness Endocrine: ABSENT: polyuria Allergic/Immunologic: PRESENT: other - Denies rhinorrhea or nasal congestion Physical Exam Vital Signs: Temp Pulse Resp BP Pulse Ox 20 160/147 H 97 05/17/20 05:48 05/17/20 05:48 05/17/20 05:48 Intake & Output 05/15/20 05/16/20 05/17/20 06:59 06:59 06:59 Intake Total 9 Balance 9 Weight 113.3 kg General appearance: PRESENT: no acute distress, cooperative Mouth exam: PRESENT: neck supple Neck exam: ABSENT: JVD Respiratory exam: PRESENT: crackles, symmetrical, unlabored. ABSENT: accessory muscle use, retraction, tachypnea, wheezes Cardiovascular exam: PRESENT: irregular rhythm, +S1, +S2, tachycardia GI/Abdominal exam: PRESENT: soft. ABSENT: rebound, rigid, tenderness Extremities exam: PRESENT: pedal edema, +1 edema Neurological exam: PRESENT: alert, awake, oriented to person, oriented to place, oriented to time, oriented to situation Psychiatric exam: ABSENT: agitated, anxious Focused psych exam: ABSENT: pressured speech Skin exam: ABSENT: jaundice Results Laboratory Results: 05/17/20 03:44 05/17/20 03:44 05/17/20 05/17/20 05/17/20 03:44 03:44 04:45 WBC 8.8 RBC 5.63 H Hgb 14.6 Hct 43.9 MCV 78 L MCH 25.9 L MCHC 33.3 RDW 15.6 H Plt Count 282 Seg Neutrophils % 86.8 H Carbonic Acid Cancelled HCO3/H2CO3 Ratio Cancelled ABG pH Cancelled ABG pCO2 Cancelled ABG pO2 Cancelled ABG HCO3 Cancelled ABG O2 Saturation Cancelled ABG Base Excess Cancelled FiO2 Cancelled Sodium 135.6 L Potassium 3.7 Chloride 100 Carbon Dioxide 26 Anion Gap 10 BUN 35 H Creatinine 2.64 H Est GFR ( Amer) 30 L Glucose 251 H Calcium 9.6 Total Bilirubin 1.0 AST 26 Alkaline Phosphatase 68 Total Protein 7.3 Albumin 3.8 05/17/20 05:27 WBC RBC Hgb Hct MCV MCH MCHC RDW Plt Count Seg Neutrophils % Carbonic Acid 1.15 HCO3/H2CO3 Ratio 20:1 ABG pH 7.41 ABG pCO2 38.2 ABG pO2 468.6 H ABG HCO3 23.9 ABG O2 Saturation 99.9 H ABG Base Excess -0.4 FiO2 100% Sodium Potassium Chloride Carbon Dioxide Anion Gap BUN Creatinine Est GFR ( Amer) Glucose Calcium Total Bilirubin AST Alkaline Phosphatase Total Protein Albumin 05/17/20 05/17/20 03:44 03:44 Creatine Kinase 190 H Troponin I 0.064 NT-Pro-B Natriuret Pep 6900 H Impressions: Chest X-Ray 05/17/20 03:52 IMPRESSION: Extensive bilateral pneumonia. No significant change. Assessment and Plan - Diagnosis (1) Acute on chronic diastolic heart failure Is this a current diagnosis for this admission?: Yes Plan: Likely compounded by patient's significantly elevated blood pressure. Patient is already showing some improvement after diuresis. 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 Crystal (2) Hypertensive emergency Is this a current diagnosis for this admission?: Yes Plan: Currently on a nitroglycerin drip. Will admit to IMCU. We will aim to bring patient's MAP down to about 90-100 today. I will resume his Coreg, nifedipine, hydralazine and clonidine patch. (3) Acute respiratory failure with hypoxia Is this a current diagnosis for this admission?: Yes Plan: Initially came in significantly hypoxic requiring 100% FiO2 on BiPAP. Evaluated by teacher dramatics who recommends admission to IMCU. We were able to bring patient FiO2 down to about 50% now. ABG obtained. We will keep him on BiPAP for now. Patient is also being ruled out for COVID-19. (4) Atrial fibrillation with RVR Is this a current diagnosis for this admission?: Yes Plan: Exacerbated by patient's hypoxia. Will resume his beta-klaus. Resume Eliquis. As needed IV Lopressor Unknown if paroxysmal versus persistent (5) Chronic kidney disease, stage 4 (severe) Is this a current diagnosis for this admission?: Yes Plan: Seems to be around his baseline. Avoid nephrotoxic medications. (6) Diabetes mellitus type 2 in obese Is this a current diagnosis for this admission?: Yes Plan: Last A1c of 6.6 showing good excellent control. Sliding scale and Accu-Cheks. (7) Elevated troponin I level Is this a current diagnosis for this admission?: Yes Plan: Likely secondary to demand perfusion mismatch. Will trend troponin. Repeat level at 10 AM. EKG shows no new ischemic changes. (8) Obesity (BMI 30.0-34.9) Is this a current diagnosis for this admission?: Yes - Time Time Spent with patient: 35 or more minutes Anticipated Discharge Disposition: Home, Self Care Anticipated Discharge Timeframe: unknown
[2020-05-17] MEDS ORDERED: HYDRALAZINE HCL 50 MG TABLET PO ONE ×2 (06:26→07:15)
[2020-05-17] MEDS ORDERED: HYDRALAZINE HCL 50 MG TABLET PO SCH (08:00)
--- NOTE | 2020-05-17 09:19 | EKG REPORT ---
SEVERITY:- ABNORMAL ECG - ATRIAL FIBRILLATION, V-RATE 74-149 PAIRED VENTRICULAR PREMATURE COMPLEXES ABNORMAL T, CONSIDER ISCHEMIA, ANT-LAT LEADS BORDERLINE PROLONGED QT INTERVAL : Confirmed by: Darrian Rowan MD 17-May-2020 09:18:38
[2020-05-17] MEDS: POTASSIUM CHLORIDE 10 MEQ TABLET.ER PO SCH (10:44)
[2020-05-17] MEDS: NIFEDIPINE 30 MG TAB.ER.24 PO SCH (10:44)
[2020-05-17] MEDS: APIXABAN 5 MG TABLET PO SCH ×2 (10:44→22:18)
[2020-05-17] MEDS: CARVEDILOL 12.5 MG TABLET PO SCH ×3 (10:45→22:18)
[2020-05-17] MEDS: INSULIN LISPRO 100 UNIT/ML 3 ML VIAL SUBCUT SCH ×4 (10:45→22:18)
[2020-05-17] MEDS: FUROSEMIDE INJ/PF 100 MG/10 ML SDV IV SCH ×2 (10:45→17:06)
[2020-05-17] MEDS: FAMOTIDINE INJ/PF 20 MG/2 ML SDV IV SCH ×2 (10:45→22:19)
[2020-05-17 12:23] LABS: APPEARANCE,URINE CLEAR; BILIRUBIN,URINE NEGATIVE (NEGATIVE); COLOR,URINE YELLOW; GLUCOSE, URINE >=500 mg/dL (NEGATIVE); KETONES,URINE NEGATIVE (NEGATIVE); LEUKOCYTE ESTERASE,URINE NEGATIVE (NEGATIVE); NITRITE,URINE NEGATIVE (NEGATIVE); PROTEIN,URINE >=500 mg/dL (NEGATIVE); URINE SPECIFIC GRAVITY 1.015; UROBILINOGEN,URINE NEGATIVE mg/dL (<2.0)
[2020-05-17] MEDS: HYDRALAZINE HCL 50 MG TABLET PO SCH ×2 (14:59→22:17)
--- NOTE | 2020-05-17 21:41 | PDOC CONSULTATION ---
Consultation-Blank Consultation: CARDIOLOGY CONSULTATION by Dr. Rimma Ly on 05/17/2020. Patient seen at 5:30 PM. 60 minutes spent on this patient with more than 50% time spent in direct patient care. REASON FOR CONSULTATION shortness of breath in a patient with chronic atrial fibrillation and elevated troponin. CONSULT REQUESTING PHYSICIAN: Dr. Zapien, [facility], [place] [facility] HISTORY of PRESENT ILLNESS: Patient is a 89-year-old Afro-Algerian male with known history of hypertension, chronic kidney disease, chronic atrial fibrillation, and history of prior diastolic heart failure states since his last 2 days has been having progressively increasing shortness of breath with orthopnea. He denies PND or leg pain. He also has been having centralized chest tightness due to difficulty breathing. There is no definite wheezing. The patient has a dry cough nonproductive of any sputum. He denies any fever chills or rigors. His shortness of breath increased to shortness of breath at rest. He called l the EMS and came to the emergency room. In the emergency room the patient's was found to be hypoxic and also hypertensive with a blood pressure in the 200s. The patient was placed on BiPAP given Lasix and now subsequently feels much better. He denies any fever chills rigors. Denies loss of taste sensation or smell sensation. The patient's nasal smear has been sent for Covid testing. The patient's troponin is borderline elevated with no evidence of non-ST ovation NV. The patient does not have clear-cut anginal symptoms. His stress testing in the later part of 2018 was negative for ischemia or NV. His last echocardiogram showed normal LV ejection fraction of 65% with L with possibly diastolic dysfunction. He has chronic kidney disease with a baseline of stage III. At present this is worsened and is a stage IV. With a GFR of 25 mL. Past Medical History Cardiac Medical History: Reports: Atrial Fibrillation, Congestive Heart Failure, Hyperlipidema, Hypertension Pulmonary Medical History: Reports: Sleep Apnea - Patient underwent an incomplete sleep study at [facility] recently. Denies: Tuberculosis Endocrine Medical History: Reports: Diabetes Mellitus Type 2 Renal/ Medical History: Reports: Chronic Kidney Disease Psychiatric Medical History: Denies: Depression Past Surgical History Past Surgical History: Denies: Appendectomy, Cholecystectomy, Coronary Artery Bypass Graft, Gastric Bypass Surgery, Herniorrhaphy, Internal Defibrillator, Pacemaker, Tonsillectomy, Valve Replacement, Vascular Surgery Social History Lives with: Family Smoking Status: Never Smoker Frequency of Alcohol Use: None Hx Recreational Drug Use: No Drugs: None Hx Prescription Drug Abuse: No - Advance Directive Resuscitation Status: Full Code Family History Family History: Hypertension Parental Family History Reviewed: Yes Children Family History Reviewed: Yes Sibling(s) Family History Reviewed.: Yes Medication/Allergy Home Medications: Apixaban [Eliquis 2.5 mg Tablet] 2.5 mg PO BID #60 tablet 04/23/18 Atorvastatin Calcium [Lipitor 20 mg Tablet] 20 mg PO QHS #30 tablet 04/23/18 Glipizide [Glucotrol 5 mg Tablet] 2.5 mg PO BIDACBS #30 tablet 07/15/19 Hydralazine HCl 100 mg PO Q8 1 Days #90 tablet 07/15/19 Insulin Glargine,Hum.rec.anlog [Lantus Insulin 100 Unit/mL Insulin Pen] 10 unit SUBCUT QHS #10 ml 07/15/19 Nifedipine [Nifedipine ER] 90 mg PO DAILY #30 tablet.er 07/15/19 Losartan Potassium [Cozaar 25 mg Tablet] 25 mg PO BID 30 Days #60 tablet 09/21/19 Metoprolol Succinate [Toprol Xl 25 mg Tab.sr] 25 mg PO Q12 tab.sr.24h 09/21/19 Carvedilol [Coreg 12.5 mg Tablet] 25 mg PO Q12 10/04/19 Clonidine HCl [Catapres 0.2 mg Tablet] 0.2 mg PO TID 10/04/19 Iron 28mg 28 mg PO DAILY 10/04/19 Isosorbide Mononitrate [Imdur 60 mg Tablet.er] 60 mg PO DAILY 10/04/19 Spironolactone 50 mg PO DAILY 10/04/19 Acetaminophen [Tylenol 325 mg Tablet] 650 mg PO Q4HP PRN tablet 10/06/19 Atorvastatin Calcium [Lipitor 20 mg Tablet] 20 mg PO QHS 30 Days #30 tablet 10/06/19 Docusate Sodium [Colace 100 mg Capsule] 100 mg PO DAILY capsule 10/06/19 Furosemide [Lasix 40 mg Tablet] 40 mg PO QAM 30 Days #30 tablet 10/06/19 Potassium Chloride 20 meq PO DAILY 30 Days #30 tablet.er 04/16/20 Allergies/Adverse Reactions: No Known Allergies Allergy (Verified 04/20/18 11:04 ) RESUSCITATION Status: The patient is a full code. His significant other is a surrogate healthcare decision maker [. Batsheva Lyman. Current Medications Generic Name Dose Route Start Last Admin Trade Name Freq PRN Reason Stop Dose Admin Acetaminophen 650 mg 05/17/20 05:42 Acetaminophen 325 Mg Tablet PO 06/16/20 05:41 Q4HP PRN FOR PAIN Al Hydrox/Mg Hydrox/Simethicone 30 ml 05/17/20 05:50 Mag Hydrox/Al Hydrox/Simeth Susp 30 Ml Udcup PO 06/16/20 05:49 Q4HP PRN HEARTBURN Apixaban 5 mg 05/17/20 10:00 05/17/20 10:44 Apixaban 5 Mg Tablet PO 06/16/20 09:59 5 mg Q12 ATUL Administration Atorvastatin Calcium 40 mg 05/17/20 22:00 Atorvastatin Calcium 40 Mg Tablet PO 06/16/20 21:59 QHS ATUL Carvedilol 25 mg 05/17/20 08:00 05/17/20 10:46 Carvedilol 12.5 Mg Tablet PO 06/16/20 07:59 25 mg Q12 ATUL Administration Clonidine HCl 1 each 05/22/20 10:00 Clonidine 0.2 Mg/24 Hr Patch.Tdwk TD 06/21/20 09:59 Tu@10 ATUL Dextrose 12.5 gm 05/17/20 06:13 Dextrose 50%-Water 25 Gm/50 Ml Disp.Syrin IV 06/16/20 06:12 PRN PRN FOR BG 50-69 IN ALERT PATIENT Protocol Dextrose 25 gm 05/17/20 06:13 Dextrose 50%-Water 25 Gm/50 Ml Disp.Syrin IV 06/16/20 06:12 PRN PRN PER PROTOCOL Protocol Famotidine 20 mg 05/17/20 10:00 05/17/20 10:45 Famotidine Inj/Pf 20 Mg/2 Ml Sdv IV 06/16/20 09:59 20 mg Q12 ATUL Administration Furosemide 60 mg 05/17/20 10:00 05/17/20 17:06 Furosemide Inj/Pf 100 Mg/10 Ml Sdv IV 06/16/20 09:59 60 mg BID ATUL Administration Glucagon 1 mg 05/17/20 06:13 Glucagon,Human Recomb 1 Mg Inj IM 06/16/20 06:12 PRN PRN Evaluate for BG < 70 Protocol Glucose 15 gm 05/17/20 06:13 Dextrose 40% Gel 15 Gm Tube PO 06/16/20 06:12 PRN PRN FOR BG 50-69 IN ALERT PATIENT Protocol Glucose 30 gm 05/17/20 06:13 Dextrose 40% Gel 15 Gm Tube PO 06/16/20 06:12 PRN PRN FOR BG < 50 IN ALERT PATIENT Protocol Hydralazine HCl 100 mg 05/17/20 14:00 05/17/20 14:59 Hydralazine Hcl 50 Mg Tablet PO 06/16/20 13:59 100 mg Q8 ATUL Administration Influenza Virus Vaccine Quadrival 0.5 ml 05/18/20 08:00 Influenza Quad (6mos+) 2019- Vac 0.5 Ml Syr IM 05/18/20 08:01 .ONCE ONE Insulin Human Lispro 0 - 12 unit 05/17/20 08:00 05/17/20 17:05 Insulin Lispro 100 Unit/Ml 3 Ml Vial SUBCUT 06/16/20 07:59 2 unit ACHS ATUL Administration Protocol Metoprolol Tartrate 5 mg 05/17/20 05:53 Metoprolol Tartrate Pf/Inj 5 Mg/5 Ml Sdv IV 06/16/20 05:52 Q6HP PRN for sustained HR>120 Nifedipine 90 mg 05/17/20 08:00 05/17/20 10:44 Nifedipine 30 Mg Tab.Er.24 PO 06/16/20 07:59 90 mg DAILY ATUL Administration Ondansetron HCl 4 mg 05/17/20 05:50 Ondansetron Hcl Inj/Pf 4 Mg/2 Ml Sdv IV 06/16/20 05:49 Q6HP PRN FOR NAUSEA/VOMITING Potassium Chloride 40 meq 05/17/20 08:00 05/17/20 10:44 Potassium Chloride 10 Meq Tablet.Er PO 06/16/20 07:59 40 meq DAILY ATUL Administration Sodium Chloride 2.5 ml 05/17/20 06:00 05/17/20 15:00 Normal Saline Flush 2.5 Ml Disp.Syrin IV 06/16/20 05:59 2.5 ml Q8 ATUL Administration Discontinued Medications Generic Name Dose Route Start Last Admin Trade Name Freq PRN Reason Stop Dose Admin Bumetanide 1 mg 05/17/20 03:50 05/17/20 03:53 Bumetanide Inj/Pf 1 Mg/4 Ml Sdv IV 05/17/20 03:51 1 mg NOW ONE Administration Carvedilol 25 mg 05/17/20 06:00 05/17/20 07:23 Carvedilol 12.5 Mg Tablet PO 06/16/20 05:59 25 mg Q12 ATUL Administration Diltiazem HCl 10 mg 05/17/20 03:51 05/17/20 04:17 Diltiazem Hcl Inj 25 Mg/5 Ml Vial IV 05/17/20 03:52 10 mg NOW ONE Administration Furosemide 20 mg 05/17/20 03:53 05/17/20 04:24 Furosemide Inj/Pf 20 Mg/2 Ml Sdv IV 05/17/20 03:54 20 mg NOW ONE Administration Hydralazine HCl 100 mg 05/17/20 08:00 Hydralazine Hcl 50 Mg Tablet PO 06/16/20 07:59 Q8 ATUL Hydralazine HCl 100 mg 05/17/20 06:26 05/17/20 07:24 Hydralazine Hcl 50 Mg Tablet PO 05/17/20 06:27 100 mg NOW ONE Administration Hydralazine HCl 100 mg 05/17/20 07:15 05/17/20 07:30 Hydralazine Hcl 50 Mg Tablet PO 05/17/20 07:16 100 mg NOW ONE Administration Nitroglycerin/Dextrose 50 mg in 250 mls @ 0 mls/hr 05/17/20 03:50 05/17/20 18:17 Ntg Rtu 50 Mg/D5w 250 Ml Iv Premix Bottle IV 06/16/20 03:49 Infused CONTINUOUS PRN Titration THIS MED IS NOT "PRN" Protocol Titrate Nitroglycerin/Dextrose 50 mg in 250 mls @ 0 mls/hr 05/17/20 05:42 05/17/20 14:55 Ntg Rtu 50 Mg/D5w 250 Ml Iv Premix Bottle IV 06/16/20 05:41 Infused CONTINUOUS PRN Titration THIS MED IS NOT "PRN" Protocol Titrate Nifedipine 90 mg 05/17/20 06:00 05/17/20 07:22 Nifedipine 30 Mg Tab.Er.24 PO 06/16/20 05:59 90 mg DAILY ATUL Administration Potassium Chloride 40 meq 05/17/20 06:00 05/17/20 07:25 Potassium Chloride 10 Meq Tablet.Er PO 06/16/20 05:59 40 meq DAILY ATUL Administration Review of Systems Constitutional: ABSENT: chills, fever(s) Eyes: ABSENT: visual disturbances Cardiovascular: PRESENT: dyspnea on exertion, orthropnea. ABSENT: chest pain Respiratory: PRESENT: dyspnea. ABSENT: cough, sputum Gastrointestinal: ABSENT: abdominal pain, nausea, vomiting Genitourinary: ABSENT: dysuria Musculoskeletal: ABSENT: back pain Integumentary: ABSENT: diaphoresis Neurological: ABSENT: dizziness Endocrine: ABSENT: polyuria Allergic/Immunologic: PRESENT: other - Denies rhinorrhea or nasal congestion. PHYSICAL EXAMINATION: The patient is moderately obese. At present on BiPAP but states his shortness of breath is much improved. He denies any chest pain or discomfort at present. Selected Entries 05/17/20 19:36 Temperature 97.6 F Temperature Axillary Source Pulse Rate 96 Respiratory 24 H Rate Blood Pressure 142/82 H Blood Pressure 102 Mean BP Location Left Arm BP Position Supine O2 Sat by Pulse 95 Oximetry Oxygen Delivery Bipap Method Percent of 40 Oxygen Head: Is atraumatic normocephalic. EYES: Pupils are equal round regular reactive light accommodation. Extraocular movements are normal. There is no conjunctival pallor. There is no scleral icterus. EARS: Tympanic memories are intact. External auditory canals are clear. NOSE: There is no deviated nasal septum. There is no inflammation of the nasal mucous membrane. MOUTH: Mucous membranes of the mouth are moist. Tongue is moist. THROAT: There is no redness of the oropharynx. There is no exudates. SKIN: There is no skin rashes or skin lesions. There is no petechia or ecchymosis. NECK: Supple. There is no JVD. Carotids are equal there is no bruit. There is no lymphadenopathy. There is no goiter. There is no accessory muscle respiration use. Trachea central. LUNGS: There is diminished air entry prolonged expiration. Lungs are without rhonchi rales or wheezing. There is dry crackles right base and right mid zone greater than left base. There is no rales of CHF. HEART: S1-S2 is heard. There is no S3 gallop. There is no S4 gallop. There is systolic murmur in the left sternal border and the apex there is no rub. ABDOMEN: Is soft. Nontender. There is no hepatosplenomegaly. Bowel sounds are well heard. There is no tender areas masses. EXTREMITIES: Femorals are diminished. There is no femoral bruits. Leg pulses are diminished. There is trace pedal edema. There is no DVT or cellulitis. There is no calf tenderness. 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 PSYCHIATRIC:. Patient judgment insight are intact his affect is normal.he patient's chest x-ray does not show any heart failure but shows right greater than left pneumonia. EKG:AFIB] . ATRIAL FIBRILLATION, V-RATE 74-149 [T3AL] . ABNORMAL T, CONSIDER ISCHEMIA, ANT-LAT LEADS [LQTB] . BORDERLINE PROLONGED QT INTERVAL Labs- Entire Visit 05/17/20 05/17/20 05/17/20 03:44 03:44 03:44 WBC 8.8 RBC 5.63 H Hgb 14.6 Hct 43.9 MCV 78 L MCH 25.9 L MCHC 33.3 RDW 15.6 H Plt Count 282 Lymph % (Auto) 6.9 L [place] % (Auto) 3.9 Eos % (Auto) 1.6 Baso % (Auto) 0.8 Absolute Neuts (auto) 7.6 Absolute Lymphs (auto) 0.6 Absolute Monos (auto) 0.3 Absolute Eos (auto) 0.1 Absolute Basos (auto) 0.1 Seg Neutrophils % 86.8 H PT 13.3 INR 0.99 APTT 28.8 Carbonic Acid HCO3/H2CO3 Ratio ABG pH ABG pCO2 ABG pO2 ABG HCO3 ABG Total CO2 ABG O2 Saturation ABG Base Excess FiO2 Sodium 135.6 L Potassium 3.7 Chloride 100 Carbon Dioxide 26 Anion Gap 10 BUN 35 H Creatinine 2.64 H Est GFR ( Amer) 30 L Est GFR (MDRD) Non-Af 25 L Glucose 251 H POC Glucose Lactic Acid Calcium 9.6 Total Bilirubin 1.0 Direct Bilirubin 0.2 Neonat Total Bilirubin Not Reportable Neonat Direct Bilirubin Not Reportable Neonat Indirect Bili Not Reportable AST 26 ALT 18 Alkaline Phosphatase 68 Creatine Kinase 190 H Troponin I NT-Pro-B Natriuret Pep Total Protein 7.3 Albumin 3.8 Urine Color Urine Appearance Urine pH Ur Specific [place] Urine Protein Urine Glucose (UA) Urine Ketones Urine Blood Urine Nitrite Urine Bilirubin Urine Urobilinogen Ur Leukocyte Esterase Urine WBC (Auto) Urine RBC (Auto) U Hyaline Cast (Auto) Squamous Epi Cells Auto Urine Mucus (Auto) Urine Ascorbic Acid COVID-19 Source 05/17/20 05/17/20 05/17/20 03:44 04:45 05:27 WBC RBC Hgb Hct MCV MCH MCHC RDW Plt Count Lymph % (Auto) [place] % (Auto) Eos % (Auto) Baso % (Auto) Absolute Neuts (auto) Absolute Lymphs (auto) Absolute Monos (auto) Absolute Eos (auto) Absolute Basos (auto) Seg Neutrophils % PT INR APTT Carbonic Acid Cancelled 1.15 HCO3/H2CO3 Ratio Cancelled 20:1 ABG pH Cancelled 7.41 ABG pCO2 Cancelled 38.2 ABG pO2 Cancelled 468.6 H ABG HCO3 Cancelled 23.9 ABG Total CO2 Cancelled 25.1 ABG O2 Saturation Cancelled 99.9 H ABG Base Excess Cancelled -0.4 FiO2 Cancelled 100% Sodium Potassium Chloride Carbon Dioxide Anion Gap BUN Creatinine Est GFR ( Amer) Est GFR (MDRD) Non-Af Glucose POC Glucose Lactic Acid Calcium Total Bilirubin Direct Bilirubin Neonat Total Bilirubin Neonat Direct Bilirubin Neonat Indirect Bili AST ALT Alkaline Phosphatase Creatine Kinase Troponin I 0.064 NT-Pro-B Natriuret Pep 6900 H Total Protein Albumin Urine Color Urine Appearance Urine pH Ur Specific [place] Urine Protein Urine Glucose (UA) Urine Ketones Urine Blood Urine Nitrite Urine Bilirubin Urine Urobilinogen Ur Leukocyte Esterase Urine WBC (Auto) Urine RBC (Auto) U Hyaline Cast (Auto) Squamous Epi Cells Auto Urine Mucus (Auto) Urine Ascorbic Acid COVID-19 Source 05/17/20 05/17/20 05/17/20 06:50 10:38 10:38 WBC RBC Hgb Hct MCV MCH MCHC RDW Plt Count Lymph % (Auto) [place] % (Auto) Eos % (Auto) Baso % (Auto) Absolute Neuts (auto) Absolute Lymphs (auto) Absolute Monos (auto) Absolute Eos (auto) Absolute Basos (auto) Seg Neutrophils % PT INR APTT Carbonic Acid HCO3/H2CO3 Ratio ABG pH ABG pCO2 ABG pO2 ABG HCO3 ABG Total CO2 ABG O2 Saturation ABG Base Excess FiO2 Sodium Potassium Chloride Carbon Dioxide Anion Gap BUN Creatinine Est GFR ( Amer) Est GFR (MDRD) Non-Af Glucose POC Glucose Lactic Acid 1.4 Calcium Total Bilirubin Direct Bilirubin Neonat Total Bilirubin Neonat Direct Bilirubin Neonat Indirect Bili AST ALT Alkaline Phosphatase Creatine Kinase Troponin I 0.059 NT-Pro-B Natriuret Pep Total Protein Albumin Urine Color Urine Appearance Urine pH Ur Specific [place] Urine Protein Urine Glucose (UA) Urine Ketones Urine Blood Urine Nitrite Urine Bilirubin Urine Urobilinogen Ur Leukocyte Esterase Urine WBC (Auto) Urine RBC (Auto) U Hyaline Cast (Auto) Squamous Epi Cells Auto Urine Mucus (Auto) Urine Ascorbic Acid COVID-19 Source See comment 05/17/20 05/17/20 05/17/20 11:35 11:46 16:30 WBC RBC Hgb Hct MCV MCH MCHC RDW Plt Count Lymph % (Auto) [place] % (Auto) Eos % (Auto) Baso % (Auto) Absolute Neuts (auto) Absolute Lymphs (auto) Absolute Monos (auto) Absolute Eos (auto) Absolute Basos (auto) Seg Neutrophils % PT INR APTT Carbonic Acid HCO3/H2CO3 Ratio ABG pH ABG pCO2 ABG pO2 ABG HCO3 ABG Total CO2 ABG O2 Saturation ABG Base Excess FiO2 Sodium Potassium Chloride Carbon Dioxide Anion Gap BUN Creatinine Est GFR ( Amer) Est GFR (MDRD) Non-Af Glucose POC Glucose 230 H Lactic Acid Calcium Total Bilirubin Direct Bilirubin Neonat Total Bilirubin Neonat Direct Bilirubin Neonat Indirect Bili AST ALT Alkaline Phosphatase Creatine Kinase Troponin I 0.053 NT-Pro-B Natriuret Pep Total Protein Albumin Urine Color YELLOW Urine Appearance CLEAR Urine pH 5.0 Ur Specific [place] 1.015 Urine Protein >=500 H Urine Glucose (UA) >=500 H Urine Ketones NEGATIVE Urine Blood NEGATIVE Urine Nitrite NEGATIVE Urine Bilirubin NEGATIVE Urine Urobilinogen NEGATIVE Ur Leukocyte Esterase NEGATIVE Urine WBC (Auto) 1 Urine RBC (Auto) 1 U Hyaline Cast (Auto) 2 Squamous Epi Cells Auto <1 Urine Mucus (Auto) RARE Urine Ascorbic Acid NEGATIVE COVID-19 Source 05/17/20 05/17/20 16:42 21:13 WBC RBC Hgb Hct MCV MCH MCHC RDW Plt Count Lymph % (Auto) [place] % (Auto) Eos % (Auto) Baso % (Auto) Absolute Neuts (auto) Absolute Lymphs (auto) Absolute Monos (auto) Absolute Eos (auto) Absolute Basos (auto) Seg Neutrophils % PT INR APTT Carbonic Acid HCO3/H2CO3 Ratio ABG pH ABG pCO2 ABG pO2 ABG HCO3 ABG Total CO2 ABG O2 Saturation ABG Base Excess FiO2 Sodium Potassium Chloride Carbon Dioxide Anion Gap BUN Creatinine Est GFR ( Amer) Est GFR (MDRD) Non-Af Glucose POC Glucose 167 H 204 H Lactic Acid Calcium Total Bilirubin Direct Bilirubin Neonat Total Bilirubin Neonat Direct Bilirubin Neonat Indirect Bili AST ALT Alkaline Phosphatase Creatine Kinase Troponin I NT-Pro-B Natriuret Pep Total Protein Albumin Urine Color Urine Appearance Urine pH Ur Specific [place] Urine Protein Urine Glucose (UA) Urine Ketones Urine Blood Urine Nitrite Urine Bilirubin Urine Urobilinogen Ur Leukocyte Esterase Urine WBC (Auto) Urine RBC (Auto) U Hyaline Cast (Auto) Squamous Epi Cells Auto Urine Mucus (Auto) Urine Ascorbic Acid COVID-19 Source Chest X-Ray 05/17/20 03:52 IMPRESSION: Extensive bilateral pneumonia. No significant change. IMPRESSION/RECOMMENDATION: 1. Acute hypoxic respiratory failure. This is multifactorial secondary to patient's pneumonia and the patient's uncontrolled hypertension in the face of chronic kidney disease. Although he has history of chronic diastolic heart failure at present physical examination a chest x-ray are not conducive with diastolic heart failure. This diastolic heart failure seems to be, well compensated. This is improved continue CPAP. Would recommend continue antibiotics and respiratory treatments. Would recommend to be very cautious with diuretics. 2. Shortness of breath: This is also multifactorial secondary to patient's pneumonia, history of COPD, and uncontrolled hypertension on admission. 3. Pneumonia: Possibly secondary to COVID-19 related pneumonia. Await results of Covid testing. 4. Hypertension: Hypertensive emergency on admission at present blood pressure well controlled. The patient is off nitroglycerin drip. Continue antihypertensives. 5. Chronic atrial fibrillation: At present heart rate seems to be fairly well controlled in spite of the patient's pneumonia. We will continue the patient's Eliquis. 6. Acute on chronic kidney disease at present stage IV. 7. Diabetes mellitus type 2: Continue antidiabetic treatment and Accu-Cheks as per protocol. 8. Probably has COPD: Continue anti-COPD treatment. Medications reviewed. Medications adjusted. Medical regimen and management plan discussed with the attending provider on the case. Medical decision making is of high complexity. 60 minutes spent on the patient with more than 50% of the time spent in direct patient care.
[2020-05-17] MEDS: ATORVASTATIN CALCIUM 40 MG TABLET PO SCH (22:18)
[2020-05-18] MEDS: HYDRALAZINE HCL 50 MG TABLET PO SCH ×3 (05:08→21:33)
[2020-05-18 06:15] LABS: MEAN CORPUSCULAR VOLUME 78 fl (80-97)
[2020-05-18 06:32] LABS: ABSOLUTE BASOPHILS # (AUTO) 0.1 10^3/uL (0.0-0.2); ABSOLUTE EOSINOPHILS # (AUTO) 0.2 10^3/uL (0.0-0.6); ABSOLUTE LYMPHOCYTES (AUTO) 0.8 10^3/uL (0.5-4.7); ABSOLUTE MONOCYTES (AUTO) 0.5 10^3/uL (0.1-1.4); ABSOLUTE NEUT (AUTO) 6.2 10^3/uL (1.7-8.2); BASOPHILS % (AUTO) 0.8 % (0-2); HEMATOCRIT 38.4 % (37.9-51.0); HEMOGLOBIN 12.6 g/dL (13.5-17.0); LYMPHOCYTES % (AUTO) 9.9 % (13-45); MEAN CORPUSCULAR HEMOGLOBIN 25.6 pg (27.0-33.4); MEAN CORPUSCULAR HGB CONC 32.9 g/dL (32.0-36.0); PLATELET COUNT 251 10^3/uL (150-450); RED BLOOD COUNT 4.93 10^6/uL (4.35-5.55); RED CELL DISTRIBUTION WIDTH 15.8 % (11.5-14.0); SEGMENTED NEUTROPHILS % (AUTO) 80.3 % (42-78); TOTAL CELLS COUNTED % (AUTO) 100 %; WHITE BLOOD COUNT 7.7 10^3/uL (4.0-10.5)
[2020-05-18 06:37] LABS: ANION GAP 9 (5-19); BLOOD UREA NITROGEN 35 mg/dL (7-20); CALCIUM 9.3 mg/dL (8.4-10.2); CARBON DIOXIDE 25 mmol/L (22-30); CHLORIDE 104 mmol/L (98-107); GLUCOSE 172 mg/dL (75-110); POTASSIUM 3.9 mmol/L (3.6-5.0)
[2020-05-18] MEDS ORDERED: INFLUENZA QUAD (6MOS+) 2020-21 VAC 0.5 ML SYR IM ONE (08:00)
[2020-05-18] MEDS: INSULIN LISPRO 100 UNIT/ML 3 ML VIAL SUBCUT SCH ×4 (08:48→21:33)
[2020-05-18] MEDS: NIFEDIPINE 30 MG TAB.ER.24 PO SCH (10:24)
[2020-05-18] MEDS: POTASSIUM CHLORIDE 10 MEQ TABLET.ER PO SCH (10:24)
[2020-05-18] MEDS: CARVEDILOL 12.5 MG TABLET PO SCH ×2 (10:24→21:33)
[2020-05-18] MEDS: APIXABAN 5 MG TABLET PO SCH ×2 (10:24→21:33)
[2020-05-18] MEDS: FAMOTIDINE INJ/PF 20 MG/2 ML SDV IV SCH ×2 (10:25→21:33)
--- NOTE | 2020-05-18 10:29 | PDOC PROGRESS REPORT ---
Subjective Date:: 05/18/20 Subjective:: CATHY HALL is a 59 year old male with history of hypertension, CHF, atrial fibrillation, CKD, who presents to the hospital with complaints of acute onset shortness of breath which started yesterday night. Patient also endorsed orthopnea at the time. He denies any fever or chills. Denies any chest pain at the episode. His shortness of breath worsened to the point where he became breathless and called the ambulance. On arrival of the ambulance, patient's SPO2 was in the 60s on room air. He was noted to be hyper per tensive in the 200s. He was placed on a CPAP without much improvement past low to mid 80s. In the ER he was placed on BiPAP 100%. He received Bumex. Patient notably takes Lasix at home daily. States he has not been missing any of the doses of the Lasix or his high blood pressure medications and only missed his Lasix dose last night. He denies any sick contacts. Denies any muscle aches nausea/vomiting/diarrhea. After receiving diuretic in the ER and being placed on a nitro drip, patient reports feeling better on BiPAP currently weaned to 5 0%. 05/18/2020. No acute events overnight. Patient is resting in bed in no apparent distress, reporting improvement of his symptoms, denies any fever or chills, denies any nausea or vomiting, p.o. tolerant and having bowel movements. Oxygen requirement has unchanged, still on 6 L FiO2 of 44 and saturating 98%. Unfortunately patient has tested positive for COVID-19. Reason For Visit: CONGESTIVE HEART FAILURE,RESPIRATORY DISTRESS,ACUT Physical Exam Vital Signs: Temp Pulse Resp BP Pulse Ox 98.2 F 137 H 22 H 133/86 H 98 05/18/20 08:33 05/18/20 08:33 05/18/20 08:33 05/18/20 08:33 05/18/20 08:33 Pulse Oximeter Continuous Start: 05/17/20 05:43 Freq: RTQ4 Status: Hold Protocol: Document 05/17/20 16:00 [facility] [place] (Rec: 05/17/20 17:03 [facility] [place] [id number]) Pulse Oximetry Assessment Oxygen Saturation (92-100) 96 Oxygen Delivery Method Bi-pap Fraction of Inspired Oxygen (FIO2) 40 Equipment Usage Equipment Standby Continuous SpO2 Machine # na Additional RT Notes Other on nurses monitor Intake & Output 05/17/20 05/18/20 05/19/20 06:59 06:59 06:59 Intake Total 9 1145 Output Total 1450 Balance 9 -305 Weight 113.3 kg 112.9 kg General appearance: PRESENT: mild distress, obese, well-developed, well- nourished Head exam: PRESENT: atraumatic, normocephalic Respiratory exam: PRESENT: crackles, tachypnea. ABSENT: rales, rhonchi, wheezes Cardiovascular exam: PRESENT: RRR. ABSENT: diastolic murmur, rubs, systolic murmur GI/Abdominal exam: PRESENT: normal bowel sounds, soft. ABSENT: distended, guarding, mass, organolmegaly, rebound, tenderness Neurological exam: PRESENT: alert, awake, oriented to person, oriented to place, oriented to time, oriented to situation, CN II-XII grossly intact. ABSENT: motor sensory deficit Results Laboratory Results: 05/18/20 05:39 05/18/20 05:39 05/17/20 05/17/20 05/18/20 10:38 11:35 05:39 WBC 7.7 RBC 4.93 Hgb 12.6 L Hct 38.4 MCV 78 L MCH 25.6 L MCHC 32.9 RDW 15.8 H Plt Count 251 Seg Neutrophils % 80.3 H Sodium Potassium Chloride Carbon Dioxide Anion Gap BUN Creatinine Est GFR ( Amer) Glucose Lactic Acid 1.4 Calcium Magnesium Urine Color YELLOW Urine Appearance CLEAR Urine pH 5.0 Ur Specific [place] 1.015 Urine Protein >=500 H Urine Glucose (UA) >=500 H Urine Ketones NEGATIVE Urine Blood NEGATIVE Urine Nitrite NEGATIVE Ur Leukocyte Esterase NEGATIVE Urine WBC (Auto) 1 Urine RBC (Auto) 1 05/18/20 05:39 WBC RBC Hgb Hct MCV MCH MCHC RDW Plt Count Seg Neutrophils % Sodium 138.0 Potassium 3.9 Chloride 104 Carbon Dioxide 25 Anion Gap 9 BUN 35 H Creatinine 2.96 H Est GFR ( Amer) 27 L Glucose 172 H Lactic Acid Calcium 9.3 Magnesium 2.1 Urine Color Urine Appearance Urine pH Ur Specific [place] Urine Protein Urine Glucose (UA) Urine Ketones Urine Blood Urine Nitrite Ur Leukocyte Esterase Urine WBC (Auto) Urine RBC (Auto) 05/17/20 05/17/20 05/17/20 03:44 03:44 10:38 Creatine Kinase 190 H Troponin I 0.064 0.059 NT-Pro-B Natriuret Pep 6900 H 05/17/20 16:30 Creatine Kinase Troponin I 0.053 NT-Pro-B Natriuret Pep Impressions: Chest X-Ray 05/17/20 03:52 IMPRESSION: Extensive bilateral pneumonia. No significant change. Assessment and Plan - Diagnosis (1) Acute respiratory failure with hypoxia Is this a current diagnosis for this admission?: Yes Plan: Improving. SPO2 WNL on 6 L nasal cannula. Multifactorial. Most likely due to COVID-19 pneumonia complicated by underlying acute CHF and hypertensive emergency. Initially came in significantly hypoxic requiring 100% FiO2 on BiPAP. Evaluated by optical goods drill operator who recommended admission to [facility]. ABG on admission on 100% oxygen showed PO2 of WNL. Continue telemetry, IV steroids, empiric broad-spectrum IV antibiotic, DuoNebs, flutter valve, incentive spirometry, pulmonary toileting. Day 1 IV antibiotics Day 1 IV ceftriaxone for Day 1 IV azithromycin Pending convalescent plasma transfusion. (2) Acute on chronic diastolic heart failure Is this a current diagnosis for this admission?: Yes Plan: Moderate improvement. Well compensated. Presented with acute on chronic diastolic heart failure. BNP on admission 6900. This was likely compounded by patient's significantly elevated blood pressure. Last interpretable echo on file shows EF of over 65% Continue telemetry, strict and outs, daily weight, cardiac diet, fluid restriction, diuretics, SELVIN, ARB, beta-blockers. Cardiology consulted. Recommendations noted. (3) Pneumonia due to COVID-19 virus Is this a current diagnosis for this admission?: Yes Plan: Serology positive for COVID-19. Plan as per #1. (4) Atrial fibrillation with RVR Is this a current diagnosis for this admission?: Yes Plan: History of chronic persistent atrial fibrillation. Rate controlled. Anticoagulated. Likely xacerbated by patient's hypoxia. Continue beta-blockers, Eliquis, as needed IV Lopressor. Cardiology consulted. Recommendations noted. (5) Chronic kidney disease, stage 4 (severe) Is this a current diagnosis for this admission?: Yes Plan: Creatinine baseline. Appears euvolemic. Electrolytes WNL. Monitor volume status and electrolytes, replace as needed. Avoid nephrotoxic meds. Outpatient PCP and nephrology follow-up. (6) Diabetes mellitus type 2 in obese Is this a current diagnosis for this admission?: Yes Plan: Seems well-controlled. Patient not taking any antidiabetic's. Last A1c of 6.6 not sure diet-controlled diabetes or insulin demand going down due to worsening kidney function. Diabetic diet, sliding scale insulin. Accu-Chek. Hypoglycemia protocol. (7) Elevated troponin I level Is this a current diagnosis for this admission?: Yes Plan: Denies any anginal symptoms. Likely NSTEMI type II due to demand mismatch. Continue telemetry, continue anti-CAD medications. (8) Hypertensive emergency Is this a current diagnosis for this admission?: Yes Plan: Moderate improvement. Off of nitroglycerin drip. Continue Coreg, nifedipine, hydralazine and clonidine patch. Medication compliance recommended. (9) Obesity Qualifiers: Obesity type: unspecified obesity type Qualified Code(s): E66.9 - Obesity, unspecified Is this a current diagnosis for this admission?: Yes Plan: BMI 33.8. Diet and lifestyle modification recommended. - Time Time Spent with patient: 35 or more minutes Medications reviewed and adjusted accordingly: Yes Anticipated Discharge Disposition: Home, Self Care Anticipated Discharge Timeframe: within 72 hours
[2020-05-18] MEDS ORDERED: AZITHROMYCIN 250 MG TABLET PO ONE (10:30)
[2020-05-18] MEDS: CHOLECALCIFEROL (D3) 1,000 UNIT (25 MCG) TABLET PO SCH (10:43)
[2020-05-18] MEDS: ZINC SULFATE 220 MG CAPSULE PO SCH (10:44)
[2020-05-18] MEDS: ASCORBIC ACID 500 MG TABLET PO SCH ×2 (10:44→21:33)
[2020-05-18] MEDS: ASPIRIN 81 MG TABLET, ENT COATED PO SCH (10:45)
[2020-05-18] MEDS: DEXAMETHASONE SOD PHOSPHATE INJ 4 MG/1 ML VIAL IV SCH (10:45)
[2020-05-18] MEDS: CEFTRIAXONE 1 GM/D5W RTU 1 GM/50 ML RTUPB IV SCH (10:45)
--- NOTE | 2020-05-18 11:13 | EKG REPORT ---
SEVERITY:- ABNORMAL ECG - ATRIAL FIBRILLATION, V-RATE 71-152 BORDERLINE LEFT AXIS DEVIATION ABNORMAL T, CONSIDER ISCHEMIA, LATERAL LEADS : Confirmed by: Darrian Rowan MD 18-May-2020 11:12:46
--- NOTE | 2020-05-18 17:41 | Progress Note ---
Provider Note Provider Note: Cardiology note by Dr. Rimma Ly on 05/18/2020. Note patient not seen or rounded on. His chart was reviewed. The patient is being tested positive for Covid and his chest x-ray and clinical findings are consistent with Covid pneumonia. There is no evidence of systolic or diastolic heart failure in this admission. Hence will sign off. Please reconsult if needed.
[2020-05-18 19:36] LABS: A TYPE INFLUENZA AG NEGATIVE (NEGATIVE); B INFLUENZA AG NEGATIVE (NEGATIVE)
[2020-05-18] MEDS: ATORVASTATIN CALCIUM 40 MG TABLET PO SCH (21:33)
[2020-05-18] MEDS: FUROSEMIDE INJ/PF 100 MG/10 ML SDV IV SCH (21:39)
[2020-05-19] MEDS: HYDRALAZINE HCL 50 MG TABLET PO SCH ×3 (05:59→21:30)
[2020-05-19 06:27] LABS: ABSOLUTE LYMPHOCYTES (AUTO) 0.6 10^3/uL (0.5-4.7); ABSOLUTE MONOCYTES (AUTO) 0.6 10^3/uL (0.1-1.4); ABSOLUTE NEUT (AUTO) 10.2 10^3/uL (1.7-8.2); BASOPHILS % (AUTO) 0.4 % (0-2); EOSINOPHILS % (AUTO) 0.1 % (0-6); HEMATOCRIT 36.1 % (37.9-51.0); HEMOGLOBIN 11.9 g/dL (13.5-17.0); LYMPHOCYTES % (AUTO) 5.5 % (13-45); MEAN CORPUSCULAR HEMOGLOBIN 25.8 pg (27.0-33.4); MEAN CORPUSCULAR HGB CONC 32.8 g/dL (32.0-36.0); MEAN CORPUSCULAR VOLUME 79 fl (80-97); MONOCYTES % (AUTO) 5.4 % (3-13); PLATELET COUNT 240 10^3/uL (150-450); RED CELL DISTRIBUTION WIDTH 15.7 % (11.5-14.0); SEGMENTED NEUTROPHILS % (AUTO) 88.6 % (42-78); TOTAL CELLS COUNTED % (AUTO) 100 %; WHITE BLOOD COUNT 11.4 10^3/uL (4.0-10.5)
[2020-05-19 06:54] LABS: INTERNATIONAL RATION (INR) 1.29; PROTHROMBIN TIME 16.3 SEC (11.4-15.4)
[2020-05-19 06:55] LABS: ALBUMIN 3.2 g/dL (3.5-5.0); ALKALINE PHOSPHATASE 55 U/L (38-126); ANION GAP 7 (5-19); ASPARTATE AMINO TRANSFERASE 16 U/L (17-59); BILIRUBIN,DIRECT 0.2 mg/dL (0.0-0.4); BILIRUBIN,TOTAL 1.1 mg/dL (0.2-1.3); BLOOD UREA NITROGEN 44 mg/dL (7-20); C-REACTIVE PROTEIN 66.9 mg/L (<10.0); CALCIUM 9.4 mg/dL (8.4-10.2); CARBON DIOXIDE 24 mmol/L (22-30); CHLORIDE 105 mmol/L (98-107); FIBRINOGEN 596 mg/dL (209-497); GLUCOSE 220 mg/dL (75-110); PARTIAL THROMBOPLASTIN TIME 38.5 SEC (23.5-35.8); POTASSIUM 4.5 mmol/L (3.6-5.0); TOTAL PROTEIN 6.5 g/dL (6.3-8.2)
[2020-05-19 06:58] LABS: D-DIMER 0.31 ug/mL (0.00-0.50)
[2020-05-19] MEDS: INSULIN LISPRO 100 UNIT/ML 3 ML VIAL SUBCUT SCH ×4 (08:46→21:31)
[2020-05-19] MEDS ORDERED: NIFEDIPINE 90 MG PO SCH (10:00)
[2020-05-19] MEDS ORDERED: (PENDING PHARMACY ID) (Potassium Chloride [Potassium Chloride] 20 MEQ Tablet.Er) PO SCH (10:00)
[2020-05-19] MEDS ORDERED: NIFEDIPINE 30 MG TAB.ER.24 PO SCH (10:00)
[2020-05-19] MEDS: CHOLECALCIFEROL (D3) 1,000 UNIT (25 MCG) TABLET PO SCH (10:33)
[2020-05-19] MEDS: NIFEDIPINE 30 MG TAB.ER.24 PO SCH ×2 (10:34→21:31)
[2020-05-19] MEDS: DEXAMETHASONE SOD PHOSPHATE INJ 4 MG/1 ML VIAL IV SCH (10:34)
[2020-05-19] MEDS: CARVEDILOL 12.5 MG TABLET PO SCH ×2 (10:34→21:30)
[2020-05-19] MEDS: FAMOTIDINE INJ/PF 20 MG/2 ML SDV IV SCH ×2 (10:34→21:31)
[2020-05-19] MEDS: POTASSIUM CHLORIDE 10 MEQ TABLET.ER PO SCH (10:34)
[2020-05-19] MEDS: APIXABAN 5 MG TABLET PO SCH ×2 (10:34→21:30)
[2020-05-19] MEDS: ASCORBIC ACID 500 MG TABLET PO SCH ×2 (10:34→21:31)
[2020-05-19] MEDS: ZINC SULFATE 220 MG CAPSULE PO SCH (10:34)
[2020-05-19] MEDS: ASPIRIN 81 MG TABLET, ENT COATED PO SCH (10:34)
[2020-05-19] MEDS: AZITHROMYCIN 250 MG TABLET PO SCH (10:34)
[2020-05-19] MEDS: CEFTRIAXONE 1 GM/D5W RTU 1 GM/50 ML RTUPB IV SCH (10:35)
--- NOTE | 2020-05-19 11:49 | PDOC PROGRESS REPORT ---
Subjective Date:: 05/19/20 Subjective:: CATHY HALL is a 59 year old male with history of hypertension, CHF, atrial fibrillation, CKD, who presents to the hospital with complaints of acute onset shortness of breath which started yesterday night. Patient also endorsed orthopnea at the time. He denies any fever or chills. Denies any chest pain at the episode. His shortness of breath worsened to the point where he became breathless and called the ambulance. On arrival of the ambulance, patient's SPO2 was in the 60s on room air. He was noted to be hyper per tensive in the 200s. He was placed on a CPAP without much improvement past low to mid 80s. In the ER he was placed on BiPAP 100%. He received Bumex. Patient notably takes Lasix at home daily. States he has not been missing any of the doses of the Lasix or his high blood pressure medications and only missed his Lasix dose last night. He denies any sick contacts. Denies any muscle aches nausea/vomiting/diarrhea. After receiving diuretic in the ER and being placed on a nitro drip, patient reports feeling better on BiPAP currently weaned to 5 0%. 05/18/2020. No acute events overnight. Patient is resting in bed in no apparent distress, reporting improvement of his symptoms, denies any fever or chills, denies any nausea or vomiting, p.o. tolerant and having bowel movements. Oxygen requirement has unchanged, still on 6 L FiO2 of 44 and saturating 98%. Unfortunately patient has tested positive for COVID-19. 05/19/2020. No acute events overnight. Patient comfortably resting in bed no apparent distress, SPO2 WNL on 4 L nasal cannula, mild leukocytosis today likely due to steroid that he is receiving for COVID-19, mild worsening of renal function, does not appear to be in apparent distress, denies any fever, chills, nausea, vomiting, diarrhea, constipation or any urinary symptoms. Reason For Visit: CONGESTIVE HEART FAILURE,RESPIRATORY DISTRESS,ACUT Physical Exam Vital Signs: Temp Pulse Resp BP Pulse Ox 97.4 F 69 20 153/68 H 95 05/19/20 10:00 05/19/20 08:14 05/19/20 08:14 05/19/20 08:14 05/19/20 08:14 Pulse Oximeter Continuous Start: 05/17/20 05:43 Freq: RTQ4 Status: Hold Protocol: Document 05/17/20 16:00 [facility] (Rec: 05/17/20 17:03 [facility] [id number]) Pulse Oximetry Assessment Oxygen Saturation (92-100) 96 Oxygen Delivery Method Bi-pap Fraction of Inspired Oxygen (FIO2) 40 Equipment Usage Equipment Standby Continuous SpO2 Machine # na Additional RT Notes Other on nurses monitor Intake & Output 05/18/20 05/19/20 05/20/20 06:59 06:59 06:59 Intake Total 1145 1601 50 Output Total 1450 900 Balance -305 701 50 Weight 112.9 kg 113.8 kg General appearance: PRESENT: obese Head exam: PRESENT: atraumatic, normocephalic Neck exam: ABSENT: carotid bruit, JVD, lymphadenopathy, thyromegaly Respiratory exam: PRESENT: clear to auscultation farooq. ABSENT: rales, rhonchi, wheezes Cardiovascular exam: PRESENT: RRR. ABSENT: diastolic murmur, rubs, systolic murmur GI/Abdominal exam: PRESENT: normal bowel sounds, soft. ABSENT: distended, guarding, mass, organolmegaly, rebound, tenderness Extremities exam: PRESENT: full ROM. ABSENT: calf tenderness, clubbing, pedal edema Neurological exam: PRESENT: alert, awake, oriented to person, oriented to place, oriented to time, oriented to situation, CN II-XII grossly intact. ABSENT: motor sensory deficit Results Laboratory Results: 05/19/20 05:55 05/19/20 05:55 05/18/20 05/19/20 05/19/20 10:45 05:55 05:55 WBC 11.4 H RBC 4.60 Hgb 11.9 L Hct 36.1 L MCV 79 L MCH 25.8 L MCHC 32.8 RDW 15.7 H Plt Count 240 Seg Neutrophils % 88.6 H Sodium 136.2 L Potassium 4.5 Chloride 105 Carbon Dioxide 24 Anion Gap 7 BUN 44 H Creatinine 3.20 H Est GFR ( Amer) 24 L Glucose 220 H Calcium 9.4 Ferritin 182.00 Total Bilirubin 1.1 AST 16 L Alkaline Phosphatase 55 C-Reactive Protein 66.9 H Total Protein 6.5 Albumin 3.2 L Blood Type O POSITIVE Antibody Screen NEGATIVE 05/17/20 05/17/20 05/17/20 03:44 03:44 10:38 Creatine Kinase 190 H Troponin I 0.064 0.059 NT-Pro-B Natriuret Pep 6900 H 05/17/20 16:30 Creatine Kinase Troponin I 0.053 NT-Pro-B Natriuret Pep Impressions: Chest X-Ray 05/17/20 03:52 IMPRESSION: Extensive bilateral pneumonia. No significant change. Assessment and Plan - Diagnosis (1) Acute respiratory failure with hypoxia Is this a current diagnosis for this admission?: Yes Plan: Improving. SPO2 WNL on 4 L nasal cannula. Multifactorial. Most likely due to COVID-19 pneumonia complicated by underlying acute CHF and hypertensive emergency. Initially came in significantly hypoxic requiring 100% FiO2 on BiPAP. Evaluated by commercial real estate agent who recommended admission to [facility]. ABG on admission on 100% oxygen showed PO2 of WNL. Continue telemetry, IV steroids, empiric broad-spectrum IV antibiotic, DuoNebs, flutter valve, incentive spirometry, pulmonary toileting. Day 2 IV antibiotics Day 2 IV ceftriaxone for Day 2 IV azithromycin Status post convalescent plasma transfusion. (2) Acute on chronic diastolic heart failure Is this a current diagnosis for this admission?: Yes Plan: Moderate improvement. Well compensated. Presented with acute on chronic diastolic heart failure. BNP on admission 6900. This was likely compounded by patient's significantly elevated blood pressure. Last interpretable echo on file shows EF of over 65% Continue telemetry, strict and outs, daily weight, cardiac diet, fluid restricti on, diuretics, SELVIN, ARB, beta-blockers. Cardiology consulted. Recommendations noted. (3) Pneumonia due to COVID-19 virus Is this a current diagnosis for this admission?: Yes Plan: Serology positive for COVID-19. Plan as per #1. (4) Atrial fibrillation with RVR Is this a current diagnosis for this admission?: Yes Plan: History of chronic persistent atrial fibrillation. Rate controlled. Anticoagulated. Likely xacerbated by patient's hypoxia. Continue beta-blockers, Eliquis, as needed IV Lopressor. Cardiology consulted. Recommendations noted. (5) Chronic kidney disease, stage 4 (severe) Is this a current diagnosis for this admission?: Yes Plan: Creatinine baseline. Appears euvolemic. Electrolytes WNL. Monitor volume status and electrolytes, replace as needed. Avoid nephrotoxic me ds. Outpatient PCP and nephrology follow-up. (6) Diabetes mellitus type 2 in obese Is this a current diagnosis for this admission?: Yes Plan: Seems well-controlled. Patient not taking any antidiabetic's. Last A1c of 6.6 not sure diet-controlled diabetes or insulin demand going down due to worsening kidney function. Diabetic diet, sliding scale insulin. Accu-Chek. Hypoglycemia protocol. (7) Elevated troponin I level Is this a current diagnosis for this admission?: Yes Plan: Denies any anginal symptoms. Likely NSTEMI type II due to demand mismatch. Continue telemetry, continue anti-CAD medications. (8) Hypertensive emergency Is this a current diagnosis for this admission?: Yes Plan: Moderate improvement. Off of nitroglycerin drip. Continue Coreg, nifedipine, hydralazine and clonidine patch. Medication compliance recommended. (9) Obesity Qualifiers: Obesity type: unspecified obesity type Qualified Code(s): E66.9 - Obesity, unspecified Is this a current diagnosis for this admission?: Yes Plan: BMI 33.8. Diet and lifestyle modification recommended. - Time Time Spent with patient: 25-34 minutes Anticipated Discharge Disposition: Home, Self Care Anticipated Discharge Timeframe: within 48 hours
[2020-05-19] MEDS ORDERED: LEVALBUTEROL HCL NEB 0.63 MG/3 ML AMPUL NEB PRN (14:00)
[2020-05-19] MEDS: LEVALBUTEROL HCL NEB 0.63 MG/3 ML AMPUL NEB SCH ×2 (14:05→20:40)
[2020-05-19] MEDS: ATORVASTATIN CALCIUM 40 MG TABLET PO SCH (21:31)
[2020-05-20] MEDS: HYDRALAZINE HCL 50 MG TABLET PO SCH (05:17)
[2020-05-20 06:14] LABS: ABSOLUTE BASOPHILS # (AUTO) 0.1 10^3/uL (0.0-0.2); ABSOLUTE LYMPHOCYTES (AUTO) 0.9 10^3/uL (0.5-4.7); ABSOLUTE MONOCYTES (AUTO) 0.8 10^3/uL (0.1-1.4); ABSOLUTE NEUT (AUTO) 12.8 10^3/uL (1.7-8.2); BASOPHILS % (AUTO) 0.4 % (0-2); HEMATOCRIT 40.3 % (37.9-51.0); HEMOGLOBIN 13.1 g/dL (13.5-17.0); LYMPHOCYTES % (AUTO) 6.2 % (13-45); MEAN CORPUSCULAR HEMOGLOBIN 25.5 pg (27.0-33.4); MEAN CORPUSCULAR HGB CONC 32.6 g/dL (32.0-36.0); MEAN CORPUSCULAR VOLUME 78 fl (80-97); MONOCYTES % (AUTO) 5.5 % (3-13); PLATELET COUNT 312 10^3/uL (150-450); RED BLOOD COUNT 5.15 10^6/uL (4.35-5.55); RED CELL DISTRIBUTION WIDTH 15.8 % (11.5-14.0); SEGMENTED NEUTROPHILS % (AUTO) 87.9 % (42-78); TOTAL CELLS COUNTED % (AUTO) 100 %; WHITE BLOOD COUNT 14.6 10^3/uL (4.0-10.5)
[2020-05-20 06:54] LABS: ALBUMIN 3.7 g/dL (3.5-5.0); ALKALINE PHOSPHATASE 60 U/L (38-126); ANION GAP 14 (5-19); ASPARTATE AMINO TRANSFERASE 18 U/L (17-59); BILIRUBIN,DIRECT 0.3 mg/dL (0.0-0.4); BILIRUBIN,TOTAL 1.1 mg/dL (0.2-1.3); BLOOD UREA NITROGEN 51 mg/dL (7-20); C-REACTIVE PROTEIN 30.4 mg/L (<10.0); CALCIUM 9.7 mg/dL (8.4-10.2); CARBON DIOXIDE 20 mmol/L (22-30); CHLORIDE 104 mmol/L (98-107); GLUCOSE 191 mg/dL (75-110); POTASSIUM 4.3 mmol/L (3.6-5.0); TOTAL PROTEIN 7.2 g/dL (6.3-8.2)
[2020-05-20] MEDS: LEVALBUTEROL HCL NEB 0.63 MG/3 ML AMPUL NEB SCH (07:54)
[2020-05-20] MEDS: INSULIN LISPRO 100 UNIT/ML 3 ML VIAL SUBCUT SCH (09:34)
[2020-05-20] MEDS: ASPIRIN 81 MG TABLET, ENT COATED PO SCH (10:26)
[2020-05-20] MEDS: AZITHROMYCIN 250 MG TABLET PO SCH (10:26)
[2020-05-20] MEDS: NIFEDIPINE 30 MG TAB.ER.24 PO SCH (10:26)
[2020-05-20] MEDS: POTASSIUM CHLORIDE 10 MEQ TABLET.ER PO SCH (10:26)
[2020-05-20] MEDS: APIXABAN 5 MG TABLET PO SCH (10:26)
[2020-05-20] MEDS: ASCORBIC ACID 500 MG TABLET PO SCH (10:26)
[2020-05-20] MEDS: ZINC SULFATE 220 MG CAPSULE PO SCH (10:26)
[2020-05-20] MEDS: CHOLECALCIFEROL (D3) 1,000 UNIT (25 MCG) TABLET PO SCH (10:26)
[2020-05-20] MEDS: DEXAMETHASONE SOD PHOSPHATE INJ 4 MG/1 ML VIAL IV SCH (10:26)
[2020-05-20] MEDS: CARVEDILOL 12.5 MG TABLET PO SCH (10:26)
[2020-05-20] MEDS: FAMOTIDINE INJ/PF 20 MG/2 ML SDV IV SCH (10:27)
[2020-05-20] MEDS: CEFTRIAXONE 1 GM/D5W RTU 1 GM/50 ML RTUPB IV SCH (10:27)
[2020-05-20 11:38] VITALS: BP 130/74
--- NOTE | 2020-05-21 13:20 | PDOC DISCHARGE SUMMARY ---
Impression - Admit/DC Date/PCP Admission Date/Primary Care Provider: 05/17/20 05:01 ERMA DESAI Discharge Date: 05/19/20 - Discharge Diagnosis (1) Acute respiratory failure with hypoxia Is this a current diagnosis for this admission?: Yes (2) Acute on chronic diastolic heart failure Is this a current diagnosis for this admission?: Yes (3) Pneumonia due to COVID-19 virus Is this a current diagnosis for this admission?: Yes (4) Atrial fibrillation with RVR Is this a current diagnosis for this admission?: Yes (5) Chronic kidney disease, stage 4 (severe) Is this a current diagnosis for this admission?: Yes (6) Diabetes mellitus type 2 in obese Is this a current diagnosis for this admission?: Yes (7) Elevated troponin I level Is this a current diagnosis for this admission?: Yes (8) Hypertensive emergency Is this a current diagnosis for this admission?: Yes (9) Obesity Is this a current diagnosis for this admission?: Yes - Additional Information Resuscitation Status: Full Code Discharge Diet: Diabetic Discharge Activity: Activity As Tolerated, Balance Activity w/Rest Referrals: ERMA DESAI MD [Primary Care Provider] - 05/24/20 11:30 am DORA HOWE MD [ACTIVE STAFF] - Prescriptions: Nifedipine [Procardia XL 30 mg Tablet] 60 mg PO Q12 30 Days #60 tab.er.24 Home Medications: Carvedilol [Coreg 12.5 mg Tablet] 25 mg PO Q12 10/04/19 Apixaban [Eliquis 2.5 mg Tablet] 2.5 mg PO Q12 05/17/20 Atorvastatin Calcium [Lipitor 20 mg Tablet] 20 mg PO QHS 05/17/20 Clonidine [Catapres-Tts 2 (0.2 mg/24 Hr) Transderm Ptc] 1 patch TOP TU@1000 05/17/20 Nifedipine [Procardia XL 30 mg Tablet] 60 mg PO Q12 30 Days #60 tab.er.24 05/20/20 History of Present Illiness History of Present Illness: CATHY HALL is a 59 year old male with history of hypertension, CHF, atrial fibrillation, CKD, who presents to the hospital with complaints of acute onset shortness of breath which started yesterday night. Patient also endorsed orthopnea at the time. He denies any fever or chills. Denies any chest pain at the episode. His shortness of breath worsened to the point where he became breathless and called the ambulance. On arrival of the ambulance, patient's SPO2 was in the 60s on room air. He was noted to be hyper per tensive in the 200s. He was placed on a CPAP without much improvement past low to mid 80s. In the ER he was placed on BiPAP 100%. He received Bumex. Patient notably takes Lasix at home daily. States he has not been missing any of the doses of the Lasix or his high blood pressure medications and only missed his Lasix dose last night. He denies any sick contacts. Denies any muscle aches nausea/vomiting/diarrhea. After receiving diuretic in the ER and being placed on a nitro drip, patient reports feeling better on BiPAP currently weaned to 50%. Hospital Course Hospital Course: (1) Acute respiratory failure with hypoxia Resolved. SPO2 WNL on RA. Multifactorial. Most likely due to COVID-19 pneumonia complicated by underlying acute CHF and hypertensive emergency. Initially came in significantly hypoxic requiring 100% FiO2 on BiPAP. Evaluated by pharmacy stock clerk who recommended admission to IMCU. ABG on admission on 100% oxygen showed PO2 of WNL. Continued telemetry, IV steroids, empiric broad-spectrum IV antibiotic, DuoNebs, flutter valve, incentive spirometry, pulmonary toileting. Received 3 IV antibiotics Received 3 IV ceftriaxone for Received 3 IV azithromycin Received convalescent plasma. (2) Acute on chronic diastolic heart failure Moderate improvement. Well compensated. Presented with acute on chronic diastolic heart failure. BNP on admission 6900. This was likely compounded by patient's significantly elevated blood pressure. Last interpretable echo on file shows EF of over 65% Continued telemetry, strict and outs, daily weight, cardiac diet, fluid restriction, diuretics, SELVIN, ARB, beta-blockers. Cardiology consulted. Recommendations noted. (3) Pneumonia due to COVID-19 virus Serology positive for COVID-19. Plan as per #1. (4) Atrial fibrillation with RVR History of chronic persistent atrial fibrillation. Rate controlled. Anticoagulated. Likely exacerbated by patient's hypoxia. Continued beta-blockers, Eliquis, as needed IV Lopressor. Cardiology consulted. Recommendations noted. (5) Chronic kidney disease, stage 4 (severe) Creatinine baseline. Appears euvolemic. Electrolytes WNL. Monitor volume status and electrolytes, replace as needed. Avoid nephrotoxic meds. Outpatient PCP and nephrology follow-up. (6) Diabetes mellitus type 2 in obese Seems well-controlled. Patient not taking any antidiabetic's. Last A1c of 6.6 not sure diet-controlled diabetes or insulin demand going down due to worsening kidney function. Was started on diabetic diet, sliding scale insulin. Accu-Chek. Hypoglycemia protocol. (7) Elevated troponin I level Denied any anginal symptoms. Likely NSTEMI type II due to demand mismatch. Continued telemetry, continued anti-CAD medications. Advised to resume home meds upon discharge. (8) Hypertensive emergency Resolved. Was started on nitroglycerin drip. Continued Coreg, nifedipine, hydralazine and clonidine patch. Medication compliance recommended. (9) Obesity BMI 33.8. Diet and lifestyle modification recommended. Physical Exam Vital Signs: Temp Pulse Resp BP Pulse Ox 98.2 F 104 H 17 130/74 H 95 05/20/20 11:36 05/20/20 11:36 05/20/20 11:36 05/20/20 11:36 05/20/20 12:17 Pulse Oximeter Continuous Start: 05/17/20 05:43 Freq: RTQ4 Status: Discharge Protocol: Document 05/17/20 16:00 [facility] (Rec: 05/17/20 17:03 [facility] [id number]) Pulse Oximetry Assessment Oxygen Saturation (92-100) 96 Oxygen Delivery Method Bi-pap Fraction of Inspired Oxygen (FIO2) 40 Equipment Usage Equipment Standby Continuous SpO2 Machine # na Additional RT Notes Other on nurses monitor Intake & Output 05/20/20 05/21/20 05/22/20 06:59 06:59 06:59 Intake Total 1410 Output Total 630 Balance 780 Weight 114.6 kg General appearance: PRESENT: no acute distress, obese, well-developed, well- nourished Head exam: PRESENT: atraumatic, normocephalic Respiratory exam: PRESENT: clear to auscultation farooq. ABSENT: rales, rhonchi, wheezes GI/Abdominal exam: PRESENT: normal bowel sounds, soft. ABSENT: distended, guarding, mass, organolmegaly, rebound, tenderness Neurological exam: PRESENT: alert, awake, oriented to person, oriented to place, oriented to time, oriented to situation, CN II-XII grossly intact. ABSENT: motor sensory deficit Results Laboratory Results: WBC 14.6 10^3/uL (4.0-10.5) H 05/20/20 05:30 RBC 5.15 10^6/uL (4.35-5.55) 05/20/20 05:30 Hgb 13.1 g/dL (13.5-17.0) L 05/20/20 05:30 Hct 40.3 % (37.9-51.0) 05/20/20 05:30 MCV 78 fl (80-97) L 05/20/20 05:30 MCH 25.5 pg (27.0-33.4) L 05/20/20 05:30 MCHC 32.6 g/dL (32.0-36.0) 05/20/20 05:30 RDW 15.8 % (11.5-14.0) H 05/20/20 05:30 Plt Count 312 10^3/uL (150-450) 05/20/20 05:30 Lymph % (Auto) 6.2 % (13-45) L 05/20/20 05:30 [place] % (Auto) 5.5 % (3-13) 05/20/20 05:30 Eos % (Auto) 0.0 % (0-6) 05/20/20 05:30 Baso % (Auto) 0.4 % (0-2) 05/20/20 05:30 Absolute Neuts (auto) 12.8 10^3/uL (1.7-8.2) H 05/20/20 05:30 Absolute Lymphs (auto) 0.9 10^3/uL (0.5-4.7) 05/20/20 05:30 Absolute Monos (auto) 0.8 10^3/uL (0.1-1.4) 05/20/20 05:30 Absolute Eos (auto) 0.0 10^3/uL (0.0-0.6) 05/20/20 05:30 Absolute Basos (auto) 0.1 10^3/uL (0.0-0.2) 05/20/20 05:30 Seg Neutrophils % 87.9 % (42-78) H 05/20/20 05:30 PT 16.3 SEC (11.4-15.4) H 05/19/20 05:55 INR 1.29 05/19/20 05:55 APTT 38.5 SEC (23.5-35.8) H 05/19/20 05:55 Fibrinogen 596 mg/dL (209-497) H 05/19/20 05:55 D-Dimer 0.31 ug/mL (0.00-0.50) 05/19/20 05:55 Carbonic Acid 1.15 mmol/L (1.05-1.35) 05/17/20 05:27 HCO3/H2CO3 Ratio 20:1 05/17/20 05:27 ABG pH 7.41 (7.35-7.45) 05/17/20 05:27 ABG pCO2 38.2 mmHg (35-45) 05/17/20 05:27 ABG pO2 468.6 mmHg (80-100) H 05/17/20 05:27 ABG HCO3 23.9 mmol/L (20-24) 05/17/20 05:27 ABG Total CO2 25.1 mmol/L (23-27) 05/17/20 05:27 ABG O2 Saturation 99.9 % (94-98) H 05/17/20 05:27 ABG Base Excess -0.4 mmol/L 05/17/20 05:27 FiO2 100% 05/17/20 05:27 Sodium 137.9 mmol/L (137-145) 05/20/20 05:30 Potassium 4.3 mmol/L (3.6-5.0) 05/20/20 05:30 Chloride 104 mmol/L (98-107) 05/20/20 05:30 Carbon Dioxide 20 mmol/L (22-30) L 05/20/20 05:30 Anion Gap 14 (5-19) 05/20/20 05:30 BUN 51 mg/dL (7-20) H 05/20/20 05:30 Creatinine 3.18 mg/dL (0.52-1.25) H 05/20/20 05:30 Est GFR ( Amer) 25 (>60) L 05/20/20 05:30 Est GFR (MDRD) Non-Af 20 (>60) L 05/20/20 05:30 Glucose 191 mg/dL (75-110) H 05/20/20 05:30 POC Glucose 191 mg/dL (70-110) H 05/20/20 09:08 Lactic Acid 1.4 mmol/L (0.7-2.1) 05/17/20 10:38 Calcium 9.7 mg/dL (8.4-10.2) 05/20/20 05:30 Magnesium 2.1 mg/dL (1.6-2.3) 05/18/20 05:39 Ferritin 185.00 ng/mL (17.9-464.0) 05/20/20 05:30 Total Bilirubin 1.1 mg/dL (0.2-1.3) 05/20/20 05:30 Direct Bilirubin 0.3 mg/dL (0.0-0.4) 05/20/20 05:30 Neonat Total Bilirubin Not Reportable 05/20/20 05:30 Neonat Direct Bilirubin Not Reportable 05/20/20 05:30 Neonat Indirect Bili Not Reportable 05/20/20 05:30 AST 18 U/L (17-59) 05/20/20 05:30 ALT 15 U/L (<50) 05/20/20 05:30 Alkaline Phosphatase 60 U/L (38-126) 05/20/20 05:30 Lactate Dehydrogenase 242 U/L (120-246) 05/18/20 10:45 Creatine Kinase 190 U/L (55-170) H 05/17/20 03:44 Troponin I 0.053 ng/mL 05/17/20 16:30 C-Reactive Protein 30.4 mg/L (<10.0) H 05/20/20 05:30 NT-Pro-B Natriuret Pep 6900 pg/mL (<125) H 05/17/20 03:44 Total Protein 7.2 g/dL (6.3-8.2) 05/20/20 05:30 Albumin 3.7 g/dL (3.5-5.0) 05/20/20 05:30 Urine Color YELLOW 05/17/20 11:35 Urine Appearance CLEAR 05/17/20 11:35 Urine pH 5.0 (5.0-9.0) 05/17/20 11:35 Ur Specific Abrams 1.015 05/17/20 11:35 Urine Protein >=500 mg/dL (NEGATIVE) H 05/17/20 11:35 Urine Glucose (UA) >=500 mg/dL (NEGATIVE) H 05/17/20 11:35 Urine Ketones NEGATIVE mg/dL (NEGATIVE) 05/17/20 11:35 Urine Blood NEGATIVE (NEGATIVE) 05/17/20 11:35 Urine Nitrite NEGATIVE (NEGATIVE) 05/17/20 11:35 Urine Bilirubin NEGATIVE (NEGATIVE) 05/17/20 11:35 Urine Urobilinogen NEGATIVE mg/dL (<2.0) 05/17/20 11:35 Ur Leukocyte Esterase NEGATIVE (NEGATIVE) 05/17/20 11:35 Urine WBC (Auto) 1 /HPF 05/17/20 11:35 Urine RBC (Auto) 1 /HPF 05/17/20 11:35 U Hyaline Cast (Auto) 2 /LPF 05/17/20 11:35 Squamous Epi Cells Auto <1 /HPF 05/17/20 11:35 Urine Mucus (Auto) RARE /LPF 05/17/20 11:35 Urine Ascorbic Acid NEGATIVE (NEGATIVE) 05/17/20 11:35 COVID-19 Source See comment 05/17/20 06:50 COVID-19 (JEROMY) DETECTED (Not Detect) A 05/17/20 06:50 Influenza A (Rapid) NEGATIVE (NEGATIVE) 05/18/20 18:45 Influenza B (Rapid) NEGATIVE (NEGATIVE) 05/18/20 18:45 Blood Type O POSITIVE 05/18/20 10:45 Antibody Screen NEGATIVE 05/18/20 10:45 05/17/20 05/17/20 05/17/20 03:44 10:38 16:30 Troponin I 0.064 0.059 0.053 NT-Pro-B Natriuret Pep 6900 H Impressions: Chest X-Ray 05/17/20 03:52 IMPRESSION: Extensive bilateral pneumonia. No significant change. Stroke Is this a Stroke Patient?: No Acute Heart Failure Is this a Heart Failure Patient?: No
[2020-05-22] MEDS ORDERED: CLONIDINE 0.2 MG/24 HR PATCH.TDWK TD SCH (10:00)
== END 2020-05-20 12:05 | disposition home or self-care (01) | DRG 177 ==
LOC: ER 03:39 → EH 05:01 → 3W 08:32
PROVIDERS: ADMIT Internal Medicine; ATTEND Internal Medicine
PROC: 5A09457 Assistance with Respiratory Ventilation, 24-96 Consecutive Hours, Continuous Positive Airway Pressure (ICD-10-PCS; 2020-05-17)
PROC: XW13325 Transfusion of Convalescent Plasma (Nonautologous) into Peripheral Vein, Percutaneous Approach, New Technology Group 5 (ICD-10-PCS; principal; 2020-05-18)
PROC: 3E02340 Introduction of Influenza Vaccine into Muscle, Percutaneous Approach (ICD-10-PCS; 2020-05-20)
DX: U07.1 COVID-19 (principal); J12.89 Other viral pneumonia; J96.01 Acute respiratory failure with hypoxia; I50.33 Acute on chronic diastolic (congestive) heart failure; I13.0 Hypertensive heart and chronic kidney disease with heart failure and stage 1 through stage 4 chronic kidney disease, or unspecified chronic kidney disease; I16.1 Hypertensive emergency; N18.4 Chronic kidney disease, stage 4 (severe); I48.19 Other persistent atrial fibrillation; E11.22 Type 2 diabetes mellitus with diabetic chronic kidney disease; E78.5 Hyperlipidemia, unspecified; R79.89 Other specified abnormal findings of blood chemistry; E66.9 Obesity, unspecified; Z68.33 Body mass index [BMI] 33.0-33.9, adult; Z79.01 Long term (current) use of anticoagulants; Z82.49 Family history of ischemic heart disease and other diseases of the circulatory system; Z79.4 Long term (current) use of insulin; Z23 Encounter for immunization
CPT/HCPCS: 36415; 36430; 36600; 71045; 80048; 80053; 81001; 82550; 82728; 82803; 82962; 83605; 83615; 83735; 83880; 84484; 85025; 85379; 85384; 85610; 85730; 86140; 86850; 86900; 86901; 87635; 87804; 90471; 90686; 93005; 93010; 94640; 94660; 96365; 96375; 99285; C9803; G0008; J0696; J1100; J1815; J1940; J3490; S0028

== ENCOUNTER 2020-05-26 10:09 | Inpatient (IN) | payer BC ==
--- NOTE | 2020-05-26 10:22 | ER Document Report ---
ED Medical Screen (RME) - General Chief Complaint: Shortness Of Breath Stated Complaint: DIFFICULTY BREATHING Time Seen by Provider: 05/26/20 10:13 Primary Care Provider: ERMA DESAI MD [Primary Care Provider] - Follow up as needed Mode of Arrival: Wheelchair Information source: Patient Notes: HPI; 59-year-old mass medical history significant for CHF, hypertension, diabetes, A. fib, chronic kidney disease presents to the emergency room with persistent worsening shortness of breath for the past few weeks. Patient was admitted here on May 17 and discharged on May 21 for hypoxia and pneumonia. States he is currently on his antibiotics but has not improved since his discharge. Negative Covid testing when he was admitted last week. No other known Covid exposure. PE: Alert and oriented x3. Mild distress noted. Lungs: Diminished in the bases, no rales no rhonchi no wheezes. Heart: Irregular rate rhythm without murmurs, rubs, gallops. I have greeted and performed a rapid initial assessment of this patient. A comprehensive ED assessment and evaluation of the patient, analysis of test results and completion of the medical decision making process will be conducted by additional ED providers. I have specifically instructed the patient or family members with the patient to immediately return to any nursing staff should anything change in the patient's condition or with their chief complaint. TRAVEL OUTSIDE OF THE [place] IN LAST 30 DAYS: No - Related Data Allergies/Adverse Reactions: No Known Allergies Allergy (Verified 05/26/20 10:13) Past Medical History - Past Medical History Cardiac Medical History: Reports: Hx Atrial Fibrillation, Hx Congestive Heart Failure, Hx Hypercholesterolemia, Hx Hypertension Pulmonary Medical History: Reports: Hx Sleep Apnea - Patient underwent an incomplete sleep study at [facility] recently. Denies: Hx Tuberculosis Endocrine Medical History: Reports: Hx Diabetes Mellitus Type 1, Hx Diabetes Mellitus Type 2 Renal/ Medical History: Denies: Hx Peritoneal Dialysis Psychiatric Medical History: Denies: Hx Depression Past Surgical History: Denies: Hx Appendectomy, Hx Bowel Surgery, Hx Cholecystectomy, Hx Coronary Artery Bypass Graft, Hx Gastric Bypass Surgery, Hx Herniorrhaphy, Hx Internal Defibrillator, Hx Pacemaker, Hx Tonsillectomy, Hx Valve Replacement, Hx Vascular Surgery - Immunizations Hx Diphtheria, Pertussis, Tetanus Vaccination: Yes Doctor's Discharge - Discharge Referrals: ERMA DESAI MD [Primary Care Provider] - Follow up as needed
--- NOTE | 2020-05-26 10:50 | ER Document Report ---
ED General - General Chief Complaint: Shortness Of Breath Stated Complaint: DIFFICULTY BREATHING Time Seen by Provider: 05/26/20 10:13 Primary Care Provider: ERMA DESAI MD [Primary Care Provider] - Follow up as needed Mode of Arrival: Wheelchair Notes: HPI: 59-year-old male with past medical history as recorded including CHF, chronic kidney disease, atrial fibrillation, and blood pressure irregularities who presents today for some worsening shortness of breath over the last few weeks. Patient was actually admitted for 4-day stay here at this facility from May 17 to the . He was COVID-19 positive. He was started on antibiotics for possible superinfection. His blood pressure was systolic 200s when he was initially in the emergency department was placed on a nitroglycerin drip. His BNP was 6900 with a slightly elevated troponin secondary likely to demand ischemia. Patient did not know he was COVID-19 positive, as is stated according to discharge summary. Patient states over the last 3 to 4 days he has had some progressive shortness of breath. He denies any fevers, chest pain, leg swelling above baseline, nausea, vomiting, fevers, or diarrhea. Patient is not on oxygen at home. Patient was supposedly satting in the mid 80s upon arrival. ROS: See HPI All other review of systems reviewed and otherwise negative Reviewed vital signs and nursing note as charted by RN. PHYSICAL EXAM: CONSTITUTIONAL: Alert and oriented and responds appropriately to questions. Is on nasal cannula oxygen satting 95% HEAD: Normocephalic; atraumatic EYES: PERRL; Conjunctivae clear, sclerae non-icteric ENT: Normal nose; no rhinorrhea; moist mucous membranes; pharynx without lesions noted NECK: Supple without meningismus; non-tender; no cervical lymphadenopathy, no masses CARD: Regular rate and rhythm; no murmurs; symmetric distal pulses RESP: Normal chest excursion without splinting or tachypnea; breath sounds clear and equal bilaterally; scattered rhonchi without wheezing or rales appreciated ABD/GI: Normal bowel sounds; non-distended; soft, non-tender; no palpable organomegaly or masses BACK: The back appears normal and is non-tender to palpation EXT: Normal ROM in all joints; non-tender to palpation; 1+ pitting edema bilaterally SKIN: No acute lesions noted NEURO: CN 2-12 intact; 5/5 bilateral upper and lower extremity strength with sensation intact to light touch PSYCH: The patient's mood and manner are appropriate. Grooming and personal hygiene are appropriate. TRAVEL OUTSIDE OF THE [place] IN LAST 30 DAYS: No - Related Data Allergies/Adverse Reactions: No Known Allergies Allergy (Verified 05/26/20 10:13) Past Medical History - General Information source: Patient - Social History Smoking Status: Never Smoker Family History: Hypertension - Past Medical History Cardiac Medical History: Reports: Hx Atrial Fibrillation, Hx Congestive Heart Failure, Hx Hypercholesterolemia, Hx Hypertension Pulmonary Medical History: Reports: Hx Sleep Apnea - Patient underwent an i ncomplete sleep study at [facility] recently. Denies: Hx Tuberculosis Endocrine Medical History: Reports: Hx Diabetes Mellitus Type 1, Hx Diabetes Mellitus Type 2 Renal/ Medical History: Denies: Hx Peritoneal Dialysis Psychiatric Medical History: Denies: Hx Depression Past Surgical History: Denies: Hx Appendectomy, Hx Bowel Surgery, Hx Cholecystectomy, Hx Coronary Artery Bypass Graft, Hx Gastric Bypass Surgery, Hx Herniorrhaphy, Hx Internal Defibrillator, Hx Pacemaker, Hx Tonsillectomy, Hx Valve Replacement, Hx Vascular Surgery - Immunizations Hx Diphtheria, Pertussis, Tetanus Vaccination: Yes Physical Exam - Vital signs Vitals: Temp Pulse Resp BP Pulse Ox 98.0 F 86 21 H 139/65 H 90 L 05/26/20 10:13 05/26/20 10:13 05/26/20 10:13 05/26/20 10:13 05/26/20 10:13 Course - Re-evaluation Re-evalutation: 05/26/20 10:49 Given the above history and physical, we will obtain repeat imaging including an x-ray of the chest, BNP, troponin, EKG, and evaluate the patient's oxygen saturations. Concerned about worsening COVID-19 infection. I will provide a dose of Decadron. EKG shows a heart rate of 89, atrial fibrillation, inverted T waves in leads I, II, aVL, V5 and V6 with poor R wave progression. Previous EKG on 05/18/2020 shows no obvious appreciable change. - Vital Signs Vital signs: Temp Pulse Resp BP Pulse Ox 98.0 F 86 21 H 139/65 H 90 L 05/26/20 10:13 05/26/20 10:13 05/26/20 10:13 05/26/20 10:13 05/26/20 10:13 - Laboratory Result Diagrams: 05/26/20 10:29 05/26/20 10:29 Laboratory results interpreted by me: 05/26/20 05/26/20 10:29 10:29 Hgb 11.6 L Hct 35.6 L MCV 79 L MCH 25.7 L RDW 15.1 H Lymph % (Auto) 7.0 L Seg Neutrophils % 78.5 H Sodium 133.6 L BUN 29 H Creatinine 2.45 H Est GFR ( Amer) 33 L Est GFR (MDRD) Non-Af 27 L Glucose 348 H Total Bilirubin 1.7 H Albumin 3.2 L Critical Care Note - Critical Care Note Total time excluding time spent on procedures (mins): 35 Discharge - Discharge Clinical Impression: Coronavirus infection, Acute respiratory failure with hypoxia Condition: Fair Disposition: ADMITTED INPATIENT Admitting Provider: Supriya (Hospitalist) Unit Admitted: Medical Floor Referrals: ERMA DESAI MD [Primary Care Provider] - Follow up as needed
[2020-05-26] MEDS ORDERED: DEXAMETHASONE SOD PHOS INJ 10 MG/1 ML VIAL IV ONE (11:06)
--- NOTE | 2020-05-26 11:17 | RADIOLOGY REPORT (SQ) ---
EXAM DESCRIPTION: CHEST SINGLE VIEW IMAGES COMPLETED DATE/TIME: 05/26/2020 8:07 am REASON FOR STUDY: dyspnea COMPARISON: 05/17/2020 EXAM PARAMETERS: NUMBER OF VIEWS: One view. TECHNIQUE: Single frontal radiographic view of the chest acquired. RADIATION DOSE: NA LIMITATIONS: None. FINDINGS: LUNGS AND PLEURA: Diffuse bilateral airspace opacities again demonstrated. There is a new small right pleural effusion. No visualized pneumothorax. MEDIASTINUM AND HILAR STRUCTURES: No masses. Contour normal. HEART AND VASCULAR STRUCTURES: Stable. BONES: No acute findings. HARDWARE: None in the chest. OTHER: No other significant finding. IMPRESSION: Diffuse bilateral patchy airspace opacities again demonstrated. New small right pleural effusion. TECHNICAL DOCUMENTATION: JOB ID: [id number] [employer]- All Rights Reserved Reading location - IP/workstation name: [email or web address]
[2020-05-26] MEDS ORDERED: AZITHROMYCIN INJ 500 MG VIAL IV ONE (11:18)
[2020-05-26] MEDS ORDERED: CEFTRIAXONE 1 GM/D5W RTU 1 GM/50 ML RTUPB IV ONE (11:18)
[2020-05-26 11:22] LABS: ABSOLUTE BASOPHILS # (AUTO) 0.1 10^3/uL (0.0-0.2); ABSOLUTE EOSINOPHILS # (AUTO) 0.3 10^3/uL (0.0-0.6); ABSOLUTE LYMPHOCYTES (AUTO) 0.5 10^3/uL (0.5-4.7); ABSOLUTE MONOCYTES (AUTO) 0.7 10^3/uL (0.1-1.4); ABSOLUTE NEUT (AUTO) 5.6 10^3/uL (1.7-8.2); BASOPHILS % (AUTO) 0.9 % (0-2); EOSINOPHILS % (AUTO) 4.3 % (0-6); HEMATOCRIT 35.6 % (37.9-51.0); HEMOGLOBIN 11.6 g/dL (13.5-17.0); MEAN CORPUSCULAR HEMOGLOBIN 25.7 pg (27.0-33.4); MEAN CORPUSCULAR HGB CONC 32.7 g/dL (32.0-36.0); MEAN CORPUSCULAR VOLUME 79 fl (80-97); MONOCYTES % (AUTO) 9.3 % (3-13); PLATELET COUNT 275 10^3/uL (150-450); RED BLOOD COUNT 4.53 10^6/uL (4.35-5.55); RED CELL DISTRIBUTION WIDTH 15.1 % (11.5-14.0); SEGMENTED NEUTROPHILS % (AUTO) 78.5 % (42-78); TOTAL CELLS COUNTED % (AUTO) 100 %; WHITE BLOOD COUNT 7.1 10^3/uL (4.0-10.5)
[2020-05-26 11:37] LABS: ALBUMIN 3.2 g/dL (3.5-5.0); ALKALINE PHOSPHATASE 62 U/L (38-126); ANION GAP 8 (5-19); ASPARTATE AMINO TRANSFERASE 19 U/L (17-59); BILIRUBIN,DIRECT 0.2 mg/dL (0.0-0.4); BILIRUBIN,TOTAL 1.7 mg/dL (0.2-1.3); BLOOD UREA NITROGEN 29 mg/dL (7-20); CALCIUM 8.7 mg/dL (8.4-10.2); CARBON DIOXIDE 25 mmol/L (22-30); CHLORIDE 101 mmol/L (98-107); GLUCOSE 348 mg/dL (75-110); TOTAL PROTEIN 6.3 g/dL (6.3-8.2)
[2020-05-26 12:00] LABS: TROPONIN I 0.04 ng/mL
[2020-05-26] MEDS ORDERED: ONDANSETRON 4 MG TAB.RAPDIS PO PRN (12:56)
[2020-05-26] MEDS ORDERED: ACETAMINOPHEN 325 MG TABLET PO PRN (12:56)
[2020-05-26] MEDS ORDERED: DEXTROSE 50%-WATER 25 GM/50 ML DISP.SYRIN IV PRN ×2 (13:15)
[2020-05-26] MEDS ORDERED: DEXTROSE 40% GEL 15 GM TUBE PO PRN ×2 (13:15)
[2020-05-26] MEDS ORDERED: GLUCAGON,HUMAN RECOMB 1 MG INJ IM PRN (13:15)
[2020-05-26 15:29] LABS: D-DIMER 0.9 ug/mL (0.00-0.50)
--- NOTE | 2020-05-26 15:30 | PDOC H&P ---
History of Present Illness Admission Date/PCP: 05/26/20 12:37 ERMA DESAI Patient complains of: Shortness of breath History of Present Illness: CATHY HALL is a 59 year old male with history hypertension, CHF, atrial fibrillation, CKD and known positive COVID test 05/17 who presents to the ED for evaluation of progressively worsening shortness of breath and fatigue. Patient was recently admitted to the hospital 05/17-05/20 for HTN emergency, ARF, COVID PNA, and acute on chronic diastolic heart failure. Prior to dc his BP had normalized, O2 sat on RA was within acceptable limits, and he was cleared by cardiology for dc. His biggest concern today is his fatigue. Notes associated orthopnea, pnd, and lower extremity edema. He denies cardiac symptoms. Further denies fever, chills, loss of taste, abd pain, NVD. On evaluation today his O2 sat >95% on 4L NC. He is afebrile, heart rate is WNL and he is without leukocytosis. CBC notable for Hgb/Hct 11.6/35.6. On chemistries he is hyponatremic with BUN/Cr 29/2.45. BNP is elevated at 7440. Troponin 0.040. EKG without acute changes. CXR with persistent diffuse bilateral patchy airspace opacities and new small right pleural effusion. He received single dose azithromycin, ceftriaxone and dexamethasone in the ED and was admitted to the hospitalist service for further management and evaluation. Past Medical History Cardiac Medical History: Reports: Atrial Fibrillation, Congestive Heart Failure, Hyperlipidema, Hypertension Pulmonary Medical History: Reports: Sleep Apnea - Patient underwent an incomplete sleep study at [facility] recently. Denies: Tuberculosis Neurological Medical History: Denies: Hemorrhagic CVA, Ischemic CVA Endocrine Medical History: Reports: Diabetes Mellitus Type 2 Denies: Hyperthyroidism, Hypothyroidism Renal/ Medical History: Reports: Chronic Kidney Disease Musculoskeltal Medical History: Denies: Arthritis Skin Medical History: Denies: Eczema, Psoriasis Psychiatric Medical History: Denies: Depression Hematology: Denies: Bleeding Tendencies Past Surgical History Past Surgical History: Denies: Appendectomy, Cholecystectomy, Coronary Artery Bypass Graft, Gastric Bypass Surgery, Herniorrhaphy, Internal Defibrillator, Pacemaker, Tonsillectomy, Valve Replacement, Vascular Surgery Social History Information Source: Patient Lives with: Spouse/Significant other Smoking Status: Never Smoker Electronic Cigarette use?: No Frequency of Alcohol Use: None Hx Recreational Drug Use: No Drugs: None Hx Prescription Drug Abuse: No - Advance Directive Resuscitation Status: Full Code Family History Family History: Hypertension Parental Family History Reviewed: Yes Children Family History Reviewed: Yes Sibling(s) Family History Reviewed.: Yes Medication/Allergy Home Medications: Carvedilol [Coreg 12.5 mg Tablet] 25 mg PO Q12 10/04/19 Apixaban [Eliquis 2.5 mg Tablet] 2.5 mg PO Q12 05/17/20 Atorvastatin Calcium [Lipitor 20 mg Tablet] 20 mg PO QHS 05/17/20 Clonidine [Catapres-Tts 2 (0.2 mg/24 Hr) Transderm Ptch] 1 patch TOP TU@1000 05/17/20 Nifedipine [Procardia XL 30 mg Tablet] 60 mg PO Q12 30 Days #60 tab.er.24 05/20/20 Allergies/Adverse Reactions: No Known Allergies Allergy (Verified 05/26/20 12:26) Review of Systems Constitutional: PRESENT: anorexia, fatigue, weakness. ABSENT: chills, fever(s), headache(s), night sweats Eyes: ABSENT: visual disturbances Nose, Mouth, and Throat: ABSENT: headache(s), sore throat, vertigo Cardiovascular: PRESENT: dyspnea on exertion, edema, orthropnea. ABSENT: chest pain, palpitations Respiratory: PRESENT: dyspnea. ABSENT: cough, hemoptysis, sputum Gastrointestinal: ABSENT: abdominal pain, diarrhea, nausea, vomiting Genitourinary: ABSENT: difficulty urinating, hematuria, nocturia Musculoskeletal: ABSENT: muscle weakness Integumentary: ABSENT: diaphoresis, erythema, pruritus Neurological: ABSENT: dizziness, syncope, vertigo, weakness Psychiatric: ABSENT: anxiety, depression Endocrine: ABSENT: polydipsia, polyphagia, polyuria Hematologic/Lymphatic: ABSENT: lymphadenopathy Physical Exam Vital Signs: Temp Pulse Resp BP Pulse Ox 98.0 F 86 21 H 139/65 H 90 L 05/26/20 10:13 05/26/20 10:13 05/26/20 10:13 05/26/20 10:13 05/26/20 10:13 Intake & Output 05/25/20 05/26/20 05/27/20 06:59 06:59 06:59 Intake Total 310 Balance 310 Weight 120.3 kg General appearance: PRESENT: no acute distress, cooperative, obese Head exam: PRESENT: atraumatic, normocephalic Eye exam: PRESENT: EOMI. ABSENT: scleral icterus Mouth exam: PRESENT: moist, neck supple Neck exam: PRESENT: full ROM. ABSENT: JVD, lymphadenopathy, tenderness Respiratory exam: PRESENT: chest wall tenderness, crackles, symmetrical, unlabored. ABSENT: rales, retraction, tachypnea, wheezes Cardiovascular exam: PRESENT: irregular rhythm, +S1, +S2. ABSENT: tachycardia GI/Abdominal exam: PRESENT: soft. ABSENT: tenderness Rectal exam: PRESENT: deferred Extremities exam: PRESENT: full ROM, pedal edema, +1 edema. ABSENT: tenderness Musculoskeletal exam: PRESENT: ambulatory, full ROM. ABSENT: deformity, dislocation Neurological exam: PRESENT: alert, awake, oriented to person, oriented to place, oriented to time, oriented to situation, CN II-XII grossly intact. ABSENT: motor sensory deficit Psychiatric exam: PRESENT: appropriate affect, normal mood Skin exam: PRESENT: dry, intact, warm Results Laboratory Results: 05/26/20 10:29 05/26/20 10:29 05/26/20 05/26/20 10:29 10:29 WBC 7.1 RBC 4.53 Hgb 11.6 L Hct 35.6 L MCV 79 L MCH 25.7 L MCHC 32.7 RDW 15.1 H Plt Count 275 Seg Neutrophils % 78.5 H Sodium 133.6 L Potassium 4.0 Chloride 101 Carbon Dioxide 25 Anion Gap 8 BUN 29 H Creatinine 2.45 H Est GFR ( Amer) 33 L Glucose 348 H Calcium 8.7 Total Bilirubin 1.7 H AST 19 Alkaline Phosphatase 62 Total Protein 6.3 Albumin 3.2 L 05/26/20 10:29 Troponin I 0.040 NT-Pro-B Natriuret Pep 7440 H Impressions: Chest X-Ray 05/26/20 10:50 IMPRESSION: Diffuse bilateral patchy airspace opacities again demonstrated. New small right pleural effusion. Assessment and Plan - Diagnosis (1) Acute respiratory failure with hypoxia Is this a current diagnosis for this admission?: Yes Plan: Pt with SOB exertion, PND, orthopnea. - On initial presentation O2 sat 90% on room air, currently >95% on 4L - Per nurse desaturates to 80s with movement when on 3L O2 -ABG pending Likely secondary to Covid pneumonia with + test 05/17 additionally pt with hx diastolic heart failure. - CXR: With persistent diffuse bilateral patchy airspace opacities, new small right pleural effuse - Compared to CXR 05/17. - BNP today 7440 vs 6900 (05/17) Recent admission 05/17-05/20 for ARF secondary to covid, CHF, HTN emergency. - Initially required 100% FiO2 on BiPAP - ABG 05/17 PO2 WNL - Covid Tx: 3 days Iv ceftriaxone, 3 days azithromycin, convalescent plasma, IV steroids pulmonary toileting - CHF tx: Home meds, I&Os, fluid restriction, diuretics. - Dc home with O2 sat WNL on RA. Tx: Continue supplement oxygen with goal maintaining O2 sat > 88% - IV steroids, DuoNeb, Zinc, Vit D3, Vit C, incentive spirometer, flutter valve - Additional abx therapy not indicated at this time - Pt afebrile, without leukocytosis, with minimal change in CXR from previous. (2) Pneumonia due to COVID-19 virus Is this a current diagnosis for this admission?: Yes Plan: Covid pneumonia with + test 05/17 - CXR today: With persistent diffuse bilateral patchy airspace opacities, new small right pleural effuse. - CRP, Ferrittin, LDH, Fibrinogen, D-Dimer pending, use for monitoring disease/comparison - Previous tx: 2 day empiric broad spectrum abx, IV steroids, convalescent plasma, duonebs - Tx: IV steroids, duoneb, Zinc, Vit D3, Vit C, incentive spirometer, flutter valve - Remdesivir contraindicated in eGFR <30 Previous Covid related labs from 05/20: - CRP: 30.4 (H) - Ferrititin: 185 - LDH: 242 - Fibrinogen: 596 (H) - D-Dimer: 0.31 (3) Diastolic heart failure with preserved ejection fraction Is this a current diagnosis for this admission?: Yes Plan: C/o exertional SOB, orthopnea, PND and LE edema - Most recent echocardiogram with LV ejection fraction of 65%. - BNP increased at 7740 today vs 6900 05/17. - CXR with new small right sided pleural effusion - Recent admission tx'd with IV lasix - Per pt takes lasix at home, has been compliant - Resume home dose meds Low suspicion for acute on chronic heart failure exacerbation as pt's clincal presentation reflects covid. His acute BNP elevation may be secondary to covid as well. Given new pleural effusion on CXR and bump in BNP I have made Dr. Crystal, cardiology, aware that patient has returned and asked that he review patient's chart and provide recommendations. (4) Atrial fibrillation with RVR Is this a current diagnosis for this admission?: Yes Plan: History of chronic persistent atrial fibrillation. - This is rate controlled. - Home medications include: Eliquis, carvedilol - Monitor with tele - Cardiology made aware. Continue home dose meds. (5) Chronic kidney disease, stage 4 (severe) Is this a current diagnosis for this admission?: Yes Plan: BUN/Creatinine 29/2.45. - Previously labs reviewed, baseline 2.5 - Renal function today improved from 05/17 visit - Appears euvolemic - Electrolytes within acceptable limits - Monitor volume status - BMP daily to monitor electrolytes and renal function - Avoid nephrotoxic medications - Nephrology consult not indicated at this time (6) Elevated troponin I level Is this a current diagnosis for this admission?: Yes Plan: Troponin 0.040. - Likely NSTEMI type II due to demand mismatch. - Without anginal symptoms. - EKG without acute ischemic changes. - Trend troponin. - Continue on telemetry. - Continue home dose meds. (7) Hyponatremia Is this a current diagnosis for this admission?: Yes (8) Diabetes mellitus type 2 in obese Is this a current diagnosis for this admission?: Yes Plan: Patient with hx DM II - Home meds: 20u Lantus q HS. - Per previous visit pt did not require insulin for glucose management. - Initiate SSI q AC - Accuchecks - HemA1c in the morning (last 6.6 in 08/2019) - Plan to make insulin order changes pending accuchecks/per pt's requirement (9) Hypertension Qualifiers: Hypertension type: essential hypertension Qualified Code(s): I10 - E ssential (primary) hypertension Is this a current diagnosis for this admission?: Yes Plan: BP on admission 130/80, within acceptable limits - With recent admission 05/17 for HTN emergency requiring tx with nitroglycerin drip. - Home meds include: Coreg, nifedipine, hydralazine and clonidine patch. - Initiate home meds. - Monitor BP. (10) Anemia in chronic kidney disease (CKD) Qualifiers: Chronic kidney disease stage: stage 3 (moderate) Chronic kidney disease stage 3 subtype: stage 3b (GFR 30-44) Qualified Code(s): N18.32 - Chronic kidney disease, stage 3b; D63.1 - Anemia in chronic kidney disease Is this a current diagnosis for this admission?: Yes Plan: Hgb 11.6 today - Consistent with baseline - Monitor - Time Time Spent with patient: 35 or more minutes Medications reviewed and adjusted accordingly: Yes Anticipated Discharge Disposition: Home, Self Care Anticipated Discharge Timeframe: within 72 hours - Pending O2 requirment - Inpatient Certification Based on my medical assessment, after consideration of the patient's comorbidities, presenting symptoms, or acuity I expect that the services needed warrant INPATIENT care.: Yes I certify that my determination is in accordance with my understanding of Medicare's requirements for reasonable and necessary INPATIENT services [42 CFR 412.3e].: Yes Medical Necessity: Failure to Improve With Outpatient Therapy, Significant Comorbidiites Make Outpatient Treatment Too Risky, Need Close Monitoring Due to Risk of Patient Decompensation, Need for Nebulizer Therapy and Monitoring of Response, Risk of Complication if Not Cared For in Hospital Post Hospital Care: D/C or Transfer Summary
[2020-05-26] MEDS: IPRATROPIUM/ALBUTEROL 0.5-2.5 MG/3 ML AMPUL NEB SCH ×2 (16:10→20:44)
[2020-05-26] MEDS: ASCORBIC ACID 500 MG TABLET PO SCH (17:04)
[2020-05-26] MEDS: INSULIN REG, HUMAN 100 UNIT/ML 3 ML VIAL (PYX) SUBCUT SCH ×2 (17:04→21:46)
[2020-05-26 18:29] LABS: ARTERIAL BLOOD BASE EXCESS -2.9 mmol/L; ARTERIAL BLOOD FIO2 4L; ARTERIAL BLOOD H2CO3 1.04 mmol/L (1.05-1.35); ARTERIAL BLOOD HCO3 21.1 mmol/L (20-24); ARTERIAL BLOOD PCO2 34.4 mmHg (35-45); ARTERIAL BLOOD PH 7.41 (7.35-7.45); ARTERIAL BLOOD PO2 61.7 mmHg (80-100); ARTERIAL BLOOD TOTAL CO2 22.2 mmol/L (23-27)
--- NOTE | 2020-05-26 18:51 | EKG REPORT ---
SEVERITY:- ABNORMAL ECG - ATRIAL FIBRILLATION, V-RATE 64-121 ABNORMAL T, CONSIDER ISCHEMIA, LATERAL LEADS BORDERLINE PROLONGED QT INTERVAL : Confirmed by: Rudy Ordonez MD 26-May-2020 18:51:23
[2020-05-26] MEDS: CARVEDILOL 12.5 MG TABLET PO SCH (21:45)
[2020-05-26] MEDS: APIXABAN 2.5 MG TABLET PO SCH (21:46)
[2020-05-26] MEDS ORDERED: ATORVASTATIN CALCIUM 20 MG TABLET PO SCH (22:00)
[2020-05-27 08:13] LABS: HEMATOCRIT 32.3 % (37.9-51.0); HEMOGLOBIN 10.5 g/dL (13.5-17.0); MEAN CORPUSCULAR HEMOGLOBIN 25.6 pg (27.0-33.4); MEAN CORPUSCULAR HGB CONC 32.5 g/dL (32.0-36.0); MEAN CORPUSCULAR VOLUME 79 fl (80-97); PLATELET COUNT 301 10^3/uL (150-450); RED CELL DISTRIBUTION WIDTH 15.1 % (11.5-14.0); WHITE BLOOD COUNT 11.6 10^3/uL (4.0-10.5)
[2020-05-27 08:35] LABS: ANION GAP 8 (5-19); BLOOD UREA NITROGEN 38 mg/dL (7-20); CARBON DIOXIDE 23 mmol/L (22-30); CHLORIDE 102 mmol/L (98-107); GLUCOSE 303 mg/dL (75-110); POTASSIUM 4.6 mmol/L (3.6-5.0)
[2020-05-27] MEDS: IPRATROPIUM/ALBUTEROL 0.5-2.5 MG/3 ML AMPUL NEB SCH ×2 (08:38→13:01)
[2020-05-27] MEDS: CARVEDILOL 12.5 MG TABLET PO SCH (09:08)
[2020-05-27] MEDS: APIXABAN 2.5 MG TABLET PO SCH (09:08)
[2020-05-27] MEDS: INSULIN REG, HUMAN 100 UNIT/ML 3 ML VIAL (PYX) SUBCUT SCH ×3 (09:08→16:43)
[2020-05-27] MEDS: ASCORBIC ACID 500 MG TABLET PO SCH ×2 (09:08→17:31)
[2020-05-27] MEDS: INSULIN LISPRO 100 UNIT/ML 3 ML VIAL SUBCUT SCH ×3 (09:09→16:43)
[2020-05-27] MEDS ORDERED: DEXAMETHASONE SOD PHOS INJ 10 MG/1 ML VIAL IV SCH (10:00)
[2020-05-27] MEDS ORDERED: CHOLECALCIFEROL (D3) 1,000 UNIT (25 MCG) TABLET PO SCH (10:00)
[2020-05-27] MEDS ORDERED: ZINC SULFATE 220 MG CAPSULE PO SCH (10:00)
[2020-05-27] MEDS ORDERED: NIFEDIPINE 30 MG TAB.ER.24 PO SCH (10:00)
[2020-05-27] MEDS ORDERED: POTASSIUM CHLORIDE 10 MEQ TABLET.ER PO SCH (10:00)
[2020-05-27] MEDS ORDERED: METOPROLOL TARTRATE PF/INJ 5 MG/5 ML SDV IV PRN (12:33)
[2020-05-27] MEDS ORDERED: IPRATROPIUM/ALBUTEROL 0.5-2.5 MG/3 ML AMPUL NEB PRN (13:10)
[2020-05-27] MEDS ORDERED: HYDRALAZINE HCL 50 MG TABLET PO SCH (14:00)
[2020-05-27] MEDS ORDERED: FUROSEMIDE INJ/PF 40 MG/4 ML SDV IV SCH (15:00)
[2020-05-27 17:17] VITALS: BP 139/89
[2020-05-27] MEDS ORDERED: INSULIN GLARGINE,HUM.REC.ANLOG 1,000 UNIT/10 ML VIAL SUBCUT SCH (22:00)
[2020-05-27] MEDS ORDERED: APIXABAN 5 MG TABLET PO SCH (22:00)
[2020-05-27] MEDS ORDERED: APIXABAN 2.5 MG TABLET PO SCH (22:00)
--- NOTE | 2020-05-28 12:34 | PDOC DISCHARGE SUMMARY ---
Impression - Admit/DC Date/PCP Admission Date/Primary Care Provider: 05/26/20 12:37 ERMA DESAI Discharge Date: 05/27/20 - Discharge Diagnosis (1) Acute respiratory failure with hypoxia Is this a current diagnosis for this admission?: Yes (2) Pneumonia due to COVID-19 virus Is this a current diagnosis for this admission?: Yes (3) Diastolic heart failure with preserved ejection fraction Is this a current diagnosis for this admission?: Yes (4) Atrial fibrillation with RVR Is this a current diagnosis for this admission?: Yes (5) Chronic kidney disease, stage 4 (severe) Is this a current diagnosis for this admission?: Yes (6) Elevated troponin I level Is this a current diagnosis for this admission?: Yes (7) Hyponatremia Is this a current diagnosis for this admission?: Yes (8) Diabetes mellitus type 2 in obese Is this a current diagnosis for this admission?: Yes (9) Hypertension Is this a current diagnosis for this admission?: Yes (10) Anemia in chronic kidney disease (CKD) Is this a current diagnosis for this admission?: Yes - Additional Information Resuscitation Status: Full Code Discharge Diet: Cardiac, Diabetic Discharge Activity: Slowly Increase Activity Referrals: ERMA DESAI MD [Primary Care Provider] - 05/28/20 11:45 am Prescriptions: Apixaban [Eliquis 5 mg Tablet] 5 mg PO Q12 #30 tablet Home Medications: Carvedilol [Coreg 12.5 mg Tablet] 25 mg PO Q12 10/04/19 Atorvastatin Calcium [Lipitor 20 mg Tablet] 20 mg PO QHS 05/17/20 Clonidine [Catapres-Tts 2 (0.2 mg/24 Hr) Transderm Ptch] 1 patch TOP TU@1000 05/17/20 Nifedipine [Nifedipine ER] 90 mg PO DAILY 05/26/20 Potassium Chloride 10 meq PO DAILY 05/26/20 Apixaban [Eliquis 5 mg Tablet] 5 mg PO Q12 #30 tablet 05/27/20 Insulin Glargine,Hum.rec.anlog [Lantus Insulin 100 Unit/1 ml 10 ml] 20 units SUBCUT DAILY 05/27/20 History of Present Illiness History of Present Illness: CATHY HALL is a 59 year old male with history hypertension, CHF, atrial fibrillation, CKD and known positive COVID test 05/17 who presents to the ED for evaluation of progressively worsening shortness of breath and fatigue. Patient was recently admitted to the hospital 05/17-05/20 for HTN emergency, ARF, COVID PNA, and acute on chronic diastolic heart failure. Prior to dc his BP had normalized, O2 sat on RA was within acceptable limits, and he was cleared by cardiology for dc. His biggest concern today is his fatigue. Notes associated orthopnea, pnd, and lower extremity edema. He denies cardiac symptoms. Further denies fever, chills, loss of taste, abd pain, NVD. On evaluation today his O2 sat >95% on 4L NC. He is afebrile, heart rate is WNL and he is without leukocytosis. CBC notable for Hgb/Hct 11.6/35.6. On chemistries he is hyponatremic with BUN/Cr 29/2.45. BNP is elevated at 7440. Troponin 0.040. EKG without acute changes. CXR with persistent diffuse bilateral patchy airspace opacities and new small right pleural effusion. He received single dose azithromycin, ceftriaxone and dexamethasone in the ED and was admitted to the hospitalist service for further management and evaluation. Hospital Course Hospital Course: Acute respiratory failure with hypoxia Pt with SOB exertion, PND, orthopnea. - On initial presentation O2 sat 90% on room air, currently >95% on room air - Initially desaturated to 80s with movement, now maintaining appropriate O2 sat RA with ambulation Likely secondary to Covid pneumonia with + test 05/17 additionally pt with hx diastolic heart failure. - CXR: With persistent diffuse bilateral patchy airspace opacities, new small right pleural effuse - Compared to CXR 05/17. - BNP today 7440 vs 6900 (05/17) Recent admission 05/17-05/20 for ARF secondary to covid, CHF, HTN emergency. - Initially required 100% FiO2 on BiPAP - ABG 05/17 PO2 WNL - Covid Tx: 3 days Iv ceftriaxone, 3 days azithromycin, convalescent plasma, IV steroids pulmonary toileting - CHF tx: Home meds, I&Os, fluid restriction, diuretics. - Dc home with O2 sat WNL on RA. With not even a full day pt O2 sats WNL on room air, without complaints of SOB or difficulty breathing. - Received one day IV steroids, DuoNeb, Zinc, Vit D3, Vit C, incentive spirometer, flutter valve - Additional abx therapy not indicated at this time - Pt afebrile, without leukocytosis, with minimal change in CXR from previous. Patient stable and ready for dc. - Educated pt that he may experience residual SOB secondary to Covid. - Expressed understanding. Follow up with PCP within 1 week dc. Pneumonia due to COVID-19 virus Covid pneumonia with + test 05/17 - CXR today: With persistent diffuse bilateral patchy airspace opacities, new small right pleural effuse. - CRP, Ferrittin, LDH, Fibrinogen, D-Dimer pending, use for monitoring disease/comparison - Previous tx: 2 day empiric broad spectrum abx, IV steroids, convalescent plasma, duonebs - Tx: IV steroids, duoneb, Zinc, Vit D3, Vit C, incentive spirometer, flutter valve - Remdesivir contraindicated in eGFR <30 Previous Covid related labs from 05/20: - CRP: 30.4 (H) - Ferrititin: 185 - LDH: 242 - Fibrinogen: 596 (H) - D-Dimer: 0.31 Diastolic heart failure with preserved ejection fraction C/o exertional SOB, orthopnea, PND and LE edema - Most recent echocardiogram with LV ejection fraction of 65%. - BNP increased at 7740 today vs 6900 05/17 - CXR with new small right sided pleural effusion - Recent admission tx'd with IV lasix - Resume home dose meds - Given single dose IV lasix just PTD. Pt with significant improvement symptoms prior to IV Lasix, thus decrease suspicion of acute CHF Low suspicion for acute on chronic heart failure exacerbation as pt's clincal presentation reflects covid. His acute BNP elevation may be secondary to covid as well. Given new pleural effusion on CXR and bump in BNP I have made Dr. Crystal, cardiology, aware that patient has returned and asked that he review patient's chart and provide recommendations. Atrial fibrillation with RVR History of chronic persistent atrial fibrillation. - This is rate controlled. - Home medications include: Eliquis, carvedilol - Monitor with tele - Pt home dose Eliquis 2.5, suspect this is secondary to renal function, patient has 1/3 needs for decreased dose. Will increase dose to 5mg Eliquis BID. Chronic kidney disease, stage 4 (severe) BUN/Creatinine 29/2.45. - Previously labs reviewed, baseline .5 - Renal function today improved from 05/17 visit - Appears euvolemic - Electrolytes within acceptable limits - Monitor volume status - With improvement in renal function prior to administering IV lasix - Avoid nephrotoxic medications - Nephrology consult not indicated at this time Elevated troponin I level Troponin 0.040. - Likely NSTEMI type II due to demand mismatch. - Without anginal symptoms. - EKG without acute ischemic changes. - Trop trended down. - Continue on telemetry. - Continue home dose meds. Diabetes mellitus type 2 in obese Patient with hx DM II - Home meds: 20u Lantus q HS. - Per previous visit pt did not require insulin for glucose management. - Initiate SSI q AC - Accuchecks - HemA1c 7.4. - Pt with scheduled f/u with PCP in coming week, advise for medication adjustments to be made Hypertension BP on admission 130/80, within acceptable limits - With recent admission 05/17 for HTN emergency requiring tx with nitroglycerin drip. - Home meds include: Coreg, nifedipine, hydralazine and clonidine patch. - Initiate home meds. - Monitor BP. Anemia in chronic kidney disease (CKD) Hgb stable and consistent with baseline. - No intervention needed today. Physical Exam Vital Signs: Temp Pulse Resp BP Pulse Ox 97.6 F 98 20 139/89 H 96 05/27/20 16:34 05/27/20 16:34 05/27/20 16:34 05/27/20 16:34 05/27/20 16:34 Intake & Output 05/27/20 05/28/20 05/29/20 06:59 06:59 06:59 Intake Total 810 Output Total 500 Balance 310 Weight 120.3 kg Additional comments: General appearance: PRESENT: no acute distress, cooperative, obese Mouth exam: PRESENT: moist, neck supple Neck exam: PRESENT: full ROM. ABSENT: JVD, lymphadenopathy, tenderness Respiratory exam: PRESENT: crackles, symmetrical, unlabored. ABSENT: rales, retraction, tachypnea, wheezes Cardiovascular exam: PRESENT: irregular rhythm, +S1, +S2. ABSENT: tachycardia Extremities exam: PRESENT: full ROM ABSENT: tenderness, pedal edema Neurological exam: PRESENT: alert, awake, oriented to person, oriented to place, oriented to time, oriented to situation, CN II-XII grossly intact. ABSENT: motor sensory deficit Psychiatric exam: PRESENT: appropriate affect, normal mood Skin exam: PRESENT: dry, intact, warm Results Laboratory Results: WBC 11.6 10^3/uL (4.0-10.5) H 05/27/20 05:22 RBC 4.10 10^6/uL (4.35-5.55) L 05/27/20 05:22 Hgb 10.5 g/dL (13.5-17.0) L 05/27/20 05:22 Hct 32.3 % (37.9-51.0) L 05/27/20 05:22 MCV 79 fl (80-97) L 05/27/20 05:22 MCH 25.6 pg (27.0-33.4) L 05/27/20 05:22 MCHC 32.5 g/dL (32.0-36.0) 05/27/20 05:22 RDW 15.1 % (11.5-14.0) H 05/27/20 05:22 Plt Count 301 10^3/uL (150-450) 05/27/20 05:22 Lymph % (Auto) 7.0 % (13-45) L 05/26/20 10:29 [place] % (Auto) 9.3 % (3-13) 05/26/20 10:29 Eos % (Auto) 4.3 % (0-6) 05/26/20 10:29 Baso % (Auto) 0.9 % (0-2) 05/26/20 10:29 Absolute Neuts (auto) 5.6 10^3/uL (1.7-8.2) 05/26/20 10:29 Absolute Lymphs (auto) 0.5 10^3/uL (0.5-4.7) 05/26/20 10:29 Absolute Monos (auto) 0.7 10^3/uL (0.1-1.4) 05/26/20 10:29 Absolute Eos (auto) 0.3 10^3/uL (0.0-0.6) 05/26/20 10:29 Absolute Basos (auto) 0.1 10^3/uL (0.0-0.2) 05/26/20 10:29 Seg Neutrophils % 78.5 % (42-78) H 05/26/20 10:29 Fibrinogen 630 mg/dL (209-497) H 05/26/20 10:29 D-Dimer 0.90 ug/mL (0.00-0.50) H 05/26/20 10:29 Carbonic Acid 1.04 mmol/L (1.05-1.35) L 05/26/20 13:34 HCO3/H2CO3 Ratio 20:1 05/26/20 13:34 ABG pH 7.41 (7.35-7.45) 05/26/20 13:34 ABG pCO2 34.4 mmHg (35-45) L 05/26/20 13:34 ABG pO2 61.7 mmHg (80-100) L 05/26/20 13:34 ABG HCO3 21.1 mmol/L (20-24) 05/26/20 13:34 ABG Total CO2 22.2 mmol/L (23-27) L 05/26/20 13:34 ABG O2 Saturation 92.0 % (94-98) L 05/26/20 13:34 ABG Base Excess -2.9 mmol/L 05/26/20 13:34 FiO2 4L 05/26/20 13:34 Sodium 133.3 mmol/L (137-145) L 05/27/20 05:22 Potassium 4.6 mmol/L (3.6-5.0) 05/27/20 05:22 Chloride 102 mmol/L (98-107) 05/27/20 05:22 Carbon Dioxide 23 mmol/L (22-30) 05/27/20 05:22 Anion Gap 8 (5-19) 05/27/20 05:22 BUN 38 mg/dL (7-20) H 05/27/20 05:22 Creatinine 2.67 mg/dL (0.52-1.25) H 05/27/20 05:22 Est GFR ( Amer) 30 (>60) L 05/27/20 05:22 Est GFR (MDRD) Non-Af 25 (>60) L 05/27/20 05:22 Glucose 303 mg/dL (75-110) H 05/27/20 05:22 POC Glucose 261 mg/dL (70-110) H 05/27/20 16:34 Hemoglobin A1c % 7.4 % (4.7-6.0) H 05/27/20 05:22 Calcium 9.0 mg/dL (8.4-10.2) 05/27/20 05:22 Ferritin 206.00 ng/mL (17.9-464.0) 05/26/20 15:30 Total Bilirubin 1.7 mg/dL (0.2-1.3) H 05/26/20 10:29 Direct Bilirubin 0.2 mg/dL (0.0-0.4) 05/26/20 10:29 Neonat Total Bilirubin Not Reportable 05/26/20 10:29 Neonat Direct Bilirubin Not Reportable 05/26/20 10:29 Neonat Indirect Bili Not Reportable 05/26/20 10:29 AST 19 U/L (17-59) 05/26/20 10:29 ALT 16 U/L (<50) 05/26/20 10:29 Alkaline Phosphatase 62 U/L (38-126) 05/26/20 10:29 Lactate Dehydrogenase 207 U/L (120-246) 05/26/20 15:30 Troponin I 0.040 ng/mL 05/26/20 15:30 C-Reactive Protein 80.0 mg/L (<10.0) H 05/26/20 15:30 NT-Pro-B Natriuret Pep 7440 pg/mL (<125) H 05/26/20 10:29 Total Protein 6.3 g/dL (6.3-8.2) 05/26/20 10:29 Albumin 3.2 g/dL (3.5-5.0) L 05/26/20 10:29 05/26/20 05/26/20 10:29 15:30 Troponin I 0.040 0.040 NT-Pro-B Natriuret Pep 7440 H Impressions: Chest X-Ray 05/26/20 10:50 IMPRESSION: Diffuse bilateral patchy airspace opacities again demonstrated. New small right pleural effusion. Plan Plan of Treatment: You were diagnosed with Covid pneumonia on 05/17/2020. Your last day of quarantine is 05/27/2020. - For COVID treatment you were treated with antibiotics, steroids and breathing treatments. - I believe your continued shortness of breath and fatigue is just residual symptoms of your covid. - Today you require no oxygen supplementation and were feeling much better, so we agreed to get you home. Additionally, I have increased your Eliquis (blood thinner medication) from 2.5mg twice daily to 5mg twice daily. - Please take Eliquis (Apaxiban) 5mg twice daily. - This is a medication that you take to help decrease your risk of blood clots or stroke. Please go through your home medications with your primary care provider at your next visit. It is important that you know and understand all the medications you take and why. I recommend having a personal printed sheet with all of your home medications listed on it, this will help in the event that you come to the hospital again, we know that you have all the right medications. Time Spent: Greater than 30 Minutes Stroke Is this a Stroke Patient?: No Acute Heart Failure Is this a Heart Failure Patient?: No
[2020-05-29] MEDS ORDERED: CLONIDINE 0.2 MG/24 HR PATCH.TDWK TOP SCH (10:00)
== END 2020-05-27 18:05 | disposition home or self-care (01) | DRG 177 ==
LOC: ER 10:09 → EH 12:37 → 3W 14:33
PROVIDERS: ADMIT Internal Medicine; ATTEND Physician Assistant
DX: U07.1 COVID-19 (principal); J12.89 Other viral pneumonia; J96.01 Acute respiratory failure with hypoxia; I13.0 Hypertensive heart and chronic kidney disease with heart failure and stage 1 through stage 4 chronic kidney disease, or unspecified chronic kidney disease; I50.32 Chronic diastolic (congestive) heart failure; N18.4 Chronic kidney disease, stage 4 (severe); D63.1 Anemia in chronic kidney disease; E87.1 Hypo-osmolality and hyponatremia; I48.19 Other persistent atrial fibrillation; R79.89 Other specified abnormal findings of blood chemistry; E11.22 Type 2 diabetes mellitus with diabetic chronic kidney disease; Z79.01 Long term (current) use of anticoagulants; Z79.899 Other long term (current) drug therapy; Z82.49 Family history of ischemic heart disease and other diseases of the circulatory system
CPT/HCPCS: 36415; 71045; 80048; 80053; 82728; 82803; 82962; 83036; 83615; 83880; 84484; 85025; 85027; 85379; 85384; 86140; 93005; 93010; 94799; J0456; J0696; J1100; J1815; J1940; J3490

== ENCOUNTER 2020-06-11 23:44 | Inpatient (IN) | payer BC ==
[2020-06-11] MEDS ORDERED: NALOXONE HCL INJ 2 MG/2 ML DISP.SYRIN ONE (23:50)
[2020-06-12] MEDS ORDERED: ETOMIDATE INJ/PF 20 MG/10 ML SDV IV ONE ×2 (00:14→15:08)
[2020-06-12] MEDS ORDERED: VECURONIUM BROMIDE INJ 10 MG VIAL IV ONE ×2 (00:14→15:08)
[2020-06-12] MEDS ORDERED: PROPOFOL 1,000 MG/100 ML INFUS..BTL IV PRN (00:15)
--- NOTE | 2020-06-12 00:22 | ER Document Report ---
ED General - General Chief Complaint: Cardiac Arrest Stated Complaint: CARDIAC ARREST Time Seen by Provider: 06/11/20 23:48 Notes: 59-year-old male with atrial fibrillation, heart failure, hypertension, diabetes as per records from prior visits presents with cardiac arrest with ROSC in the field. As per EMS, EMS was activated for shortness of breath and when they arrived to the location [facility] was on scene and had found patient to be pulseless and used a ED to deliver one shock, EMS says patient was in asystole on their arrival and they did ACLS for about 3 minutes and after one dose of epinephrine patient had bounding pulse on pulse check. Narcan was also given by EMS which they said improved his altered mental status. After 2 mg of Narcan patient was tachypneic and satting 100% on room air but still obtunded. Patient was seen as per [facility] records approximately 2 weeks ago for Covid pneumonia and was discharged. History limited by altered mental status. TRAVEL OUTSIDE OF THE [place] IN LAST 30 DAYS: No - Related Data Allergies/Adverse Reactions: No Known Allergies Allergy (Verified 05/26/20 12:26) Past Medical History - General Information source: Friend, Law Enforcement, Emergency Med Personnel, [facility] Records - Social History Smoking Status: Unknown if Ever Smoked Family History: Hypertension - Past Medical History Cardiac Medical History: Reports: Hx Atrial Fibrillation, Hx Congestive Heart Failure, Hx Hypercholesterolemia, Hx Hypertension Pulmonary Medical History: Reports: Hx Sleep Apnea - Patient underwent an incomplete sleep study at [facility] recently. Denies: Hx Tuberculosis Endocrine Medical History: Reports: Hx Diabetes Mellitus Type 1, Hx Diabetes Mellitus Type 2. Denies: Hx Hyperthyroidism, Hx Hypothyroidism Renal/ Medical History: Denies: Hx Peritoneal Dialysis Musculoskeletal Medical History: Denies Hx Arthritis Skin Medical History: Denies Hx Eczema, Denies Hx Psoriasis Psychiatric Medical History: Denies: Hx Depression Past Surgical History: Denies: Hx Appendectomy, Hx Bowel Surgery, Hx Cholecystectomy, Hx Coronary Artery Bypass Graft, Hx Gastric Bypass Surgery, Hx Herniorrhaphy, Hx Internal Defibrillator, Hx Pacemaker, Hx Tonsillectomy, Hx Valve Replacement, Hx Vascular Surgery - Immunizations Hx Diphtheria, Pertussis, Tetanus Vaccination: Yes Review of Systems - Review of Systems -: Yes ROS unobtainable due to patient's medical condition Physical Exam - Vital signs Vitals: Resp BP Pulse Ox 29 H 174/94 H 90 L 06/11/20 23:44 06/11/20 23:44 06/11/20 23:44 - Notes Notes: PHYSICAL EXAMINATION: GENERAL: Obtunded tachypneic middle-age man brought in by EMS, no signs of trauma on fully undressed head to toe exam with rolling HEAD: Atraumatic, normocephalic. EYES: Pupils equal round and appropriate constriction, sclera anicteric, conjunctiva are normal. ENT: nares patent, moist mucous membranes, rough textured and discolored area on posterior soft palate approximately 2 x 2 cm, dentures removed, poor dentition NECK: Normal range of motion, supple without lymphadenopathy BACK: No C/T/L/spinal deformity, no pain reaction to palpation LUNGS: Diffusely rhonchorous breath sounds, tachypneic, accessory muscle use HEART/CHEST: Borderline tachycardic, regular rhythm, no murmurs, oval weight medication patch on upper right chest (removed) ABDOMEN: Soft, nontender, no guarding, no masses, no CVAT EXTREMITIES: Trace symmetric bilateral lower extremity edema NEUROLOGICAL: Obtunded, no eye-opening, moaning and nonpurposeful movement of extremities to sternal rub SKIN: Warm, Dry, normal turgor, no rashes or lesions noted. Course - Re-evaluation Re-evalutation: 06/12/20 00:31 Post witnessed cardiac arrest not on supplemental oxygen on arrival satting 100% with tachypnea, unclear etiology of arrest. Possible Narcan response, but not clear overdose. Known Covid pneumonia 2 weeks ago. Rule out STEMI, ventricular arrhythmia, fluid overload secondary to acute renal failure versus CHF, bacterial superimposed pneumonia, intracranial hemorrhage, electrolyte abnormalities, severe anemia, sepsis. On arrival I give additional dose of 2 mg of Narcan which led to worsening tachypnea and patient became slightly more active with some moaning and moving in stretcher but otherwise did not change patient's mental status so intubated patient for airway protection and work of breathing. Intubated with first-pass success confirmed with watching tube passed through the vocal cords, condensation in tube, color change, bilateral breath sounds, and chest x-ray. No bleed on CT head. No STEMI on EKG and narrow complex rhythm with prolonged QT. Chest x-ray with bilateral patchy opacities diffusely, but does not appear significantly worse and then chest x- ray 2 weeks ago from when patient was diagnosed with Covid pneumonia. Given that patient's chest x-ray findings not consistent with PE, patient known to be on Eliquis, will not empirically anticoagulate. Started on hypothermia protocol 34-36 degrees celsius for altered mental status postarrest. 06/12/20 02:05 Patient accepted by Brandon Rene from ICU. Given elevated blood pressure, elevated BNP, bilateral patchy opacities and cardiomegaly ordered dose of Lasix and start patient on nitro drip which he is tolerating well. 06/12/20 02:20 Called next of kin, girlfriend Batsheva, and updated her as to patient's care. Batsheva stated that patient had been following up with his doctors" [employer] last and had been feeling well after recovering from Covid infection and had negative Covid test approximately a week and a half ago and then suddenly while he was sitting on the couch began to appear like he was severely short of breath and stopped responding to her. Batsheva says that otherwise patient has been feeling well until this episode just prior to activating EMS. 06/12/20 03:23 Called Batsheva back to obtain consent for central line for CTA, however unable to obtain CTA because of protocol prohibiting CTA with elevated creatinine. Ordered VQ scan, on reviewing past charts found that patient is only on Eliquis dose 2.5 mg which is not a therapeutic dose for PE so we will give dose of Lovenox while he is waiting for VQ scan. 06/12/20 05:55 Started patient on therapeutic dose for PE of Lovenox of 1 mg/kg daily for GFR less than 30 and canceled Eliquis, I notified Brandon Adame who is managing patient now pending ICU bed. Hemoglobin is at patient's baseline. - Vital Signs Vital signs: Temp Pulse Resp BP Pulse Ox 97.4 F 22 H 140/110 H 98 06/12/20 06:08 06/12/20 06:08 06/12/20 06:08 06/12/20 05:02 - Laboratory Results Result Diagrams: 06/12/20 00:23 06/12/20 00:23 Laboratory Results Interpreted: 06/12/20 06/12/20 06/12/20 00:23 00:23 00:23 RBC 4.27 L Hgb 10.8 L Hct 33.7 L MCV 79 L MCH 25.4 L RDW 16.2 H Eos % (Auto) 6.2 H PT D-Dimer Sodium 135.8 L BUN 23 H Creatinine 2.96 H Est GFR ( Amer) 27 L Est GFR (MDRD) Non-Af 22 L Glucose 291 H Lactic Acid Phosphorus 5.2 H NT-Pro-B Natriuret Pep 6230 H Albumin 3.1 L Salicylates < 1.0 L Acetaminophen < 10 L 06/12/20 06/12/20 06/12/20 00:23 00:23 00:23 RBC Hgb Hct MCV MCH RDW Eos % (Auto) PT 15.5 H D-Dimer 3.76 H Sodium BUN Creatinine Est GFR ( Amer) Est GFR (MDRD) Non-Af Glucose Lactic Acid 3.7 H Phosphorus NT-Pro-B Natriuret Pep Albumin Salicylates Acetaminophen Critical Laboratory Results Reviewed: No Critical Results - Radiology Results Radiology Results Interpreted: 06/12/20 00:58 On my wet read patient's chest x-ray shows ET tube in adequate position, diffuse patchy opacities bilaterally, cardiomegaly, NG tube below the diaphragm Critical Radiology Results Reviewed: No Critical Results - EKG Interpretation by Me Additional EKG results interpreted by me: 06/12/20 00:59 Atrial fibrillation, rate 104, no significant ST elevations or depressions, lateral T wave inversions, QTC 527 Procedures - Intubation Orotracheal Time of Intubation: 00:00 Medications: Etomidate, Vecuronium Intubation method: Orotracheal Blade size: 4 Equipment used: Glidescope ETT size: 8.5 ETT secured at: Lips Breath Sounds after Intubation: Equal End tidal CO2 confirmed: Yes Ventilator settings: SIMV Post Intubation Xray: Yes Intubation Complications: No complications Critical Care Note - Critical Care Note Total time excluding time spent on procedures (mins): 75 - PatientSpent time repeatedly reassessing and stabilizing critical patient requiring ICU admission Discharge - Discharge Clinical Impression: Cardiac arrest Respiratory failure Qualifiers: Chronicity: acute Respiratory failure complication: unspecified whether with hy poxia or hypercapnia Qualified Code(s): J96.00 - Acute respiratory failure, unspecified whether with hypoxia or hypercapnia Condition: Critical Disposition: ADMITTED INPATIENT Admitting Provider: Brandon Vee Unit Admitted: ICU
[2020-06-12 00:48] LABS: ABSOLUTE BASOPHILS # (AUTO) 0.1 10^3/uL (0.0-0.2); ABSOLUTE EOSINOPHILS # (AUTO) 0.4 10^3/uL (0.0-0.6); ABSOLUTE LYMPHOCYTES (AUTO) 1.2 10^3/uL (0.5-4.7); ABSOLUTE MONOCYTES (AUTO) 0.4 10^3/uL (0.1-1.4); ABSOLUTE NEUT (AUTO) 3.8 10^3/uL (1.7-8.2); BASOPHILS % (AUTO) 0.9 % (0-2); EOSINOPHILS % (AUTO) 6.2 % (0-6); HEMATOCRIT 33.7 % (37.9-51.0); HEMOGLOBIN 10.8 g/dL (13.5-17.0); LYMPHOCYTES % (AUTO) 20.3 % (13-45); MEAN CORPUSCULAR HEMOGLOBIN 25.4 pg (27.0-33.4); MEAN CORPUSCULAR HGB CONC 32.1 g/dL (32.0-36.0); MEAN CORPUSCULAR VOLUME 79 fl (80-97); MONOCYTES % (AUTO) 6.8 % (3-13); PLATELET COUNT 283 10^3/uL (150-450); RED BLOOD COUNT 4.27 10^6/uL (4.35-5.55); RED CELL DISTRIBUTION WIDTH 16.2 % (11.5-14.0); SEGMENTED NEUTROPHILS % (AUTO) 65.8 % (42-78); TOTAL CELLS COUNTED % (AUTO) 100 %; WHITE BLOOD COUNT 5.8 10^3/uL (4.0-10.5)
[2020-06-12 00:50] LABS: INTERNATIONAL RATION (INR) 1.21; PROTHROMBIN TIME 15.5 SEC (11.4-15.4)
[2020-06-12 01:06] LABS: ALBUMIN 3.1 g/dL (3.5-5.0); ALKALINE PHOSPHATASE 66 U/L (38-126); ANION GAP 11 (5-19); ASPARTATE AMINO TRANSFERASE 50 U/L (17-59); BILIRUBIN,DIRECT 0.2 mg/dL (0.0-0.4); BILIRUBIN,TOTAL 1.1 mg/dL (0.2-1.3); BLOOD UREA NITROGEN 23 mg/dL (7-20); CALCIUM 8.5 mg/dL (8.4-10.2); CARBON DIOXIDE 22 mmol/L (22-30); CHLORIDE 103 mmol/L (98-107); CREATINE KINASE 111 U/L (55-170); GLUCOSE 291 mg/dL (75-110); PHOSPHORUS 5.2 mg/dL (2.5-4.5); POTASSIUM 3.9 mmol/L (3.6-5.0); TOTAL PROTEIN 6.3 g/dL (6.3-8.2)
[2020-06-12 01:20] LABS: TROPONIN I 0.035 ng/mL
--- NOTE | 2020-06-12 01:26 | RADIOLOGY REPORT (SQ) ---
EXAM DESCRIPTION: CHEST SINGLE VIEW CLINICAL HISTORY: 59 years Male, covid ams post arrest post intubation COMPARISON: Portable view the chest 05/26/2020 FINDINGS: Lungs: There is multifocal parenchymal opacification most pronounced in the mid and upper lung zones. No definitive pneumothorax or pleural effusion. Mediastinum: Heart size is enlarged and the mediastinum is widened. An endotracheal tube is been placed and terminates 3.5 cm above the joelle. NG tube passes through the esophagus and into the upper abdomen. External defibrillator pads project over the central portion of the chest and the right chest wall. Bones: Osseous structures are unchanged. IMPRESSION: 1. Parenchymal opacification prominently in the mid and upper lung zones. There is improved aeration in the lower lobes. 2. Interval intubation and placement of an NG tube. Lines and tubes are in good position.
[2020-06-12] MEDS ORDERED: FUROSEMIDE INJ/PF 100 MG/10 ML SDV IV ONE (01:30)
--- NOTE | 2020-06-12 01:31 | RADIOLOGY REPORT (SQ) ---
EXAM DESCRIPTION: CT HEAD WITHOUT IV CONTRAST COMPLETED DATE/TME: 06/12/2020 00:52 CLINICAL HISTORY: 59 years, Male, POST CARDIAC ARREST, altered obtunded COMPARISON: None. TECHNIQUE: 208 Images stored on PACS. All CT scanners at this facility use dose modulation, iterative reconstruction, and/or weight based dosing when appropriate to reduce radiation dose to as low as reasonably achievable (ALARA). [facility]: Dose Right [facility]: CareDose [facility]: Dose Right [facility]: Teradose 4D [facility]: [employer] LIMITATIONS: None. FINDINGS: The globes are intact. Endotracheal and enteric tubes are partially visualized. Partial opacification of the nasal passages and ethmoid air cells bilaterally. No displaced or depressed skull fracture. No acute intracranial hemorrhage. CT is limited for evaluation of acute infarct. No CT evidence for large or territorial acute infarct. There is a vague area of diminished attenuation in the medial left occipital lobe. Age-indeterminate lacunar infarct at this site is not excluded. No discrete mass. No midline shift. IMPRESSION: Questionable age indeterminate lacunar infarct in the medial left occipital lobe. Could consider further assessment with dedicated MRI. Opacification of the ethmoid air cells and nasal passages with endotracheal and enteric tubes in place TECHNICAL DOCUMENTATION: Quality ID # 436: Final reports with documentation of one or more dose reduction techniques (e.g., Automated exposure control, adjustment of the mA and/or kV according to patient size, use of iterative reconstruction technique) copyright 2011 [employer]- All Rights Reserved
[2020-06-12] MEDS ORDERED: NITROGLYCERIN/D5W 50 MG/250 ML RTUINJ IV PRN (01:32)
[2020-06-12] MEDS ORDERED: PROPOFOL INJ 200 MG/20 ML VIAL IV ONE ×2 (01:32→04:34)
[2020-06-12 01:33] LABS: VENOUS BLOOD BASE EXCESS -0.3 mmol/L; VENOUS BLOOD HCO3 25.5 mmol/L (20-32); VENOUS BLOOD PCO2 45.8 mmHg (35-63); VENOUS BLOOD PH 7.36 (7.30-7.42)
[2020-06-12 01:46] LABS: ACETAMINOPHEN < 10 ug/mL (10-30); ALCOHOL < 10 mg/dL (NONE DETECTED); SALICYLATE < 1.0 mg/dL (2.0-20.0)
[2020-06-12] MEDS ORDERED: ENOXAPARIN SODIUM INJ 150 MG/1 ML DISP.SYRIN SUBCUT ONE (03:25)
[2020-06-12 03:45] LABS: APPEARANCE,URINE CLOUDY; BILIRUBIN,URINE NEGATIVE (NEGATIVE); COLOR,URINE YELLOW; GLUCOSE, URINE >=500 mg/dL (NEGATIVE); KETONES,URINE NEGATIVE (NEGATIVE); PROTEIN,URINE >=500 mg/dL (NEGATIVE); URINE SPECIFIC GRAVITY 1.014; UROBILINOGEN,URINE NEGATIVE mg/dL (<2.0)
[2020-06-12 04:24] LABS: URINE AMPHETAMINES SCREEN NEGATIVE; URINE BARBITURATES SCREEN NEGATIVE; URINE BENZODIAZEPINES SCREEN NEGATIVE; URINE COCAINE SCREEN NEGATIVE; URINE MARIJUANA (THC) SCREEN NEGATIVE; URINE METHADONE SCREEN NEGATIVE; URINE PHENCYCLIDINE SCREEN NEGATIVE
[2020-06-12] MEDS: PROPOFOL 1,000 MG/100 ML INFUS..BTL IV PRN ×5 (04:31→16:02)
--- NOTE | 2020-06-12 04:49 | CRITICAL CARE ADMISSION REPORT ---
HPI Date:: 06/12/20 Time:: 02:00 Reason for ICU Reason:: Post Cardiac Arrest Admission Date/Time & PCP: Admission Date/Time: 06/12/20 02:02 Primary Care Provider: ERMA DESAI HPI: Mr. Cristofer Emanuel is a 59-year-old male with a past medical history of hypertension, CHF, atrial fibrillation, CKD, and recent positive Covid test on 05/17. Was recently admitted 05/17-05/20 for hypertensive emergency, acute renal failure, and Covid pneumonia. He was again admitted on 05/26/2020 with increased shortness of breath and fatigue. Chest x-ray at that time showed persistent diffuse bilateral patchy airspace opacities. He was treated with azithromycin, dexamethasone vitamin C, vitamin D3, and zinc. He was discharged home on 05/28/2020 in stable condition. He presented to the ED last night at 2348 status post cardiac arrest. EMS was activated for shortness of breath when they arrived at the location [employer] was on scene and had found that he is to be pulseless, used an AED and delivered 1 shock, upon EMS arrival patient was in asystole, they did ACLS for approximately 3 minutes and after 1 dose of epinephrine patient achieved ROSC. Narcan was also given by EMS which apparently improved his altered mental status. Post Narcan he was tachypneic and satting 100% on room air but again became obtunded. He was intubated in the ED for airway protection. He is admitted to the ICU for further management. History obtained from:: Hospital records, ED physician. - Diagnosis/Plan (1) Cardiac arrest Is this a current diagnosis for this admission?: Yes Plan: Likely secondary to severe hypoxia Will maintain mechanical ventilation Will need echo (2) Respiratory failure Qualifiers: Chronicity: acute Respiratory failure complication: unspecified whether with hypoxia or hypercapnia Qualified Code(s): J96.00 - Acute respiratory failure, unspecified whether with hypoxia or hypercapnia Is this a current diagnosis for this admission?: Yes Plan: Recheck for COVID-19 Continue mechanical ventilation proBNP 6230 was given Lasix 100 mg IV in the ED (3) Atrial fibrillation with RVR Is this a current diagnosis for this admission?: Yes Plan: History of A. fib on Eliquis at home Restart Eliquis 2.5 mg p.o. twice daily Currently rate controlled on carvedilol, will restart (4) Chronic kidney disease (CKD) Qualifiers: Chronic kidney disease stage: unspecified stage Qualified Code(s): N18.9 - Chronic kidney disease, unspecified Is this a current diagnosis for this admission?: Yes Plan: Creatinine 2.96 baseline 2.4 We will continue to monitor BUN/creatinine, lytes, urine output. (5) Hypertension Qualifiers: Hypertension type: essential hypertension Qualified Code(s): I10 - Essential (primary) hypertension Is this a current diagnosis for this admission?: Yes Plan: Restart home antihypertensives. Past Medical History Cardiac Medical History: Reports: Atrial Fibrillation, Congestive Heart Failure, Hyperlipidema, Hypertension Pulmonary Medical History: Reports: Sleep Apnea - Patient underwent an incomplete sleep study at [facility] recently. Denies: Tuberculosis Endocrine Medical History: Reports: Diabetes Mellitus Type 1, Diabetes Mellitus Type 2 Denies: Hyperthyroidism, Hypothyroidism Musculoskeltal Medical History: Denies: Arthritis Skin Medical History: Denies: Eczema, Psoriasis Psychiatric Medical History: Denies: Depression Hematology: Denies: Bleeding Tendencies Past Surgical History Past Surgical History: Denies: Appendectomy, Cholecystectomy, Coronary Artery Bypass Graft, Gastric Bypass Surgery, Herniorrhaphy, Internal Defibrillator, Pacemaker, Tonsillectomy, Valve Replacement, Vascular Surgery Social/Family History - Social History Smoking Status: Unknown if Ever Smoked Frequency of Alcohol Use: None Hx Recreational Drug Use: No Drugs: None Hx Prescription Drug Abuse: No - Medication/Allergies Home Medications: Carvedilol [Coreg 12.5 mg Tablet] 25 mg PO Q12 10/04/19 Atorvastatin Calcium [Lipitor 20 mg Tablet] 20 mg PO QHS 05/17/20 Clonidine [Catapres-Tts 2 (0.2 mg/24 Hr) Transderm Ptch] 1 patch TOP TU@1000 Nifedipine [Nifedipine ER] 90 mg PO DAILY 05/26/20 Potassium Chloride 10 meq PO DAILY 05/26/20 Apixaban [Eliquis 5 mg Tablet] 5 mg PO Q12 #30 tablet 05/27/20 Insulin Glargine,Hum.rec.anlog [Lantus Insulin 100 Unit/1 ml 10 ml] 20 units SUBCUT DAILY 05/27/20 Allergies/Adverse Reactions: No Known Allergies Allergy (Verified 05/26/20 12:26) Review of Systems ROS unobtainable: Due to endotracheal tube Physical Exam Vital Signs: Temp Pulse Resp BP Pulse Ox 97.7 F 22 H 133/87 H 92 06/12/20 03:01 06/12/20 03:01 06/12/20 03:01 06/12/20 01:31 Intake & Output 06/10/20 06/11/20 06/12/20 06:59 06:59 06:59 Intake Total 24 Balance 24 Weight 121 kg Weight/Height Weight 121 kg Height 6 ft General appearance: PRESENT: mild distress, well-developed, well-nourished Head exam: PRESENT: atraumatic Eye exam: PRESENT: PERRLA Mouth exam: PRESENT: moist, neck supple Neck exam: PRESENT: full ROM Respiratory exam: PRESENT: rales Cardiovascular exam: PRESENT: irregular rhythm Pulses: PRESENT: normal radial pulses GI/Abdominal exam: PRESENT: normal bowel sounds Gentrourinary exam: PRESENT: indwelling catheter Extremities exam: PRESENT: +2 edema Musculoskeletal exam: PRESENT: full ROM Neurological exam: PRESENT: other - Sedated Tubes/Lines: PRESENT: Endotracheal Tube Laboratory/Radiographs Laboratory Results: 06/12/20 00:23 06/12/20 00:23 06/12/20 06/12/20 06/12/20 00:23 00:23 00:23 WBC 5.8 RBC 4.27 L Hgb 10.8 L Hct 33.7 L MCV 79 L MCH 25.4 L MCHC 32.1 RDW 16.2 H Plt Count 283 Seg Neutrophils % 65.8 VBG pH VBG pCO2 VBG HCO3 VBG Base Excess Sodium 135.8 L Potassium 3.9 Chloride 103 Carbon Dioxide 22 Anion Gap 11 BUN 23 H Creatinine 2.96 H Est GFR ( Amer) 27 L Glucose 291 H Lactic Acid 3.7 H Calcium 8.5 Phosphorus 5.2 H Magnesium 2.0 Total Bilirubin 1.1 AST 50 Alkaline Phosphatase 66 Total Protein 6.3 Albumin 3.1 L Urine Color Urine Appearance Urine pH Ur Specific [place] Urine Protein Urine Glucose (UA) Urine Ketones Urine Blood Urine RBC (Auto) 06/12/20 06/12/20 01:25 03:15 WBC RBC Hgb Hct MCV MCH MCHC RDW Plt Count Seg Neutrophils % VBG pH 7.36 VBG pCO2 45.8 VBG HCO3 25.5 VBG Base Excess -0.3 Sodium Potassium Chloride Carbon Dioxide Anion Gap BUN Creatinine Est GFR ( Amer) Glucose Lactic Acid Calcium Phosphorus Magnesium Total Bilirubin AST Alkaline Phosphatase Total Protein Albumin Urine Color YELLOW Urine Appearance CLOUDY Urine pH 7.0 Ur Specific [place] 1.014 Urine Protein >=500 H Urine Glucose (UA) >=500 H Urine Ketones NEGATIVE Urine Blood MODERATE H Urine RBC (Auto) >182 06/12/20 12 00:23 00:23 Creatine Kinase 111 Troponin I 0.035 NT-Pro-B Natriuret Pep 6230 H Impressions: Chest X-Ray 06/12/20 00:13 IMPRESSION: 1. Parenchymal opacification prominently in the mid and upper lung zones. There is improved aeration in the lower lobes. 2. Interval intubation and placement of an NG tube. Lines and tubes are in good position. Head CT 06/12/20 00:13 IMPRESSION: Questionable age indeterminate lacunar infarct in the medial left occipital lobe. Could consider further assessment with dedicated MRI. Opacification of the ethmoid air cells and nasal passages with endotracheal and enteric tubes in place TECHNICAL DOCUMENTATION: Quality ID # 436: Final reports with documentation of one or more dose reduction techniques (e.g., Automated exposure control, adjustment of the mA and/or kV according to patient size, use of iterative reconstruction technique) copyright 2011 [employer]- All Rights Reserved All labs, radiographs, diagnostic studies and EKGs were personally reviewed: Yes In addition, reports of radiographic and diagnostic studies were read: Yes Critical Time Critical Time (minutes): 65 -: The care of a critically ill patient is dynamic. This note represents a static moment in the admission process. Orders and treatments may be given simultaneously and urgently, and time is not representative government relations of the treatment process. This patient requires Critical Care secondary to life threatening organ or limb dysfunction. Without Critical Care services, the patient is at risk for increased mortality and morbidity.
[2020-06-12 06:48] LABS: VENOUS BLOOD BASE EXCESS -0.9 mmol/L; VENOUS BLOOD HCO3 24.7 mmol/L (20-32); VENOUS BLOOD PCO2 44.7 mmHg (35-63); VENOUS BLOOD PH 7.36 (7.30-7.42)
--- NOTE | 2020-06-12 07:20 | EKG REPORT ---
SEVERITY:- ABNORMAL ECG - ATRIAL FIBRILLATION ABNORMAL T, CONSIDER ISCHEMIA, ANT-LAT LEADS PROLONGED QT INTERVAL : Confirmed by: Darrian Rowan MD 12-Jun-2020 07:20:20
--- NOTE | 2020-06-12 09:03 | RADIOLOGY REPORT (SQ) ---
EXAM DESCRIPTION: NM LUNG PERFUSION SCAN IMAGES COMPLETED DATE/TIME: 06/12/2020 8:46 am REASON FOR STUDY: respiratory failure positive dimer intubated COMPARISON: Chest x-ray done earlier the same day. RADIONUCLIDE AND DOSE: 5.5 millicuries TC-99m MAA The route of agent administration: Intravenous TECHNIQUE: Eight views of the lungs acquired following injection of MAA. LIMITATIONS: None. FINDINGS: PERFUSION: Mild heterogeneous radionuclide activity posteriorly bilaterally. No focal def ects are identified.. OTHER: No other significant finding. IMPRESSION: Low probability for pulmonary embolus. TECHNICAL DOCUMENTATION: JOB ID: [id number] 2010 [employer]- All Rights Reserved Reading location - IP/workstation name: [email or web address]
[2020-06-12] MEDS ORDERED: APIXABAN 2.5 MG TABLET PO SCH (10:00)
[2020-06-12] MEDS: NORMAL SALINE 1000 ML 1,000 ML IV PRN ×2 (10:51→17:45)
[2020-06-12] MEDS: ATORVASTATIN CALCIUM 40 MG TABLET PO SCH (11:05)
[2020-06-12] MEDS: CARVEDILOL 12.5 MG TABLET PO SCH ×2 (11:06→21:00)
[2020-06-12] MEDS: APIXABAN 2.5 MG TABLET PO SCH ×2 (11:06→17:55)
[2020-06-12] MEDS ORDERED: GLUCAGON,HUMAN RECOMB 1 MG INJ IM PRN (11:19)
[2020-06-12] MEDS ORDERED: DEXTROSE 40% GEL 15 GM TUBE PO PRN ×2 (11:19)
[2020-06-12] MEDS ORDERED: DEXTROSE 50%-WATER 25 GM/50 ML DISP.SYRIN IV PRN ×2 (11:19)
[2020-06-12 11:38] LABS: ARTERIAL BLOOD BASE EXCESS 1.2 mmol/L; ARTERIAL BLOOD H2CO3 0.93 mmol/L (1.05-1.35); ARTERIAL BLOOD HCO3 23.8 mmol/L (20-24); ARTERIAL BLOOD O2 SATURATION 99.1 % (94-98); ARTERIAL BLOOD PCO2 30.9 mmHg (35-45); ARTERIAL BLOOD PH 7.51 (7.35-7.45); ARTERIAL BLOOD PO2 144.3 mmHg (80-100); ARTERIAL BLOOD TOTAL CO2 24.8 mmol/L (23-27)
[2020-06-12 11:42] LABS: ARTERIAL BLOOD FIO2 90%
--- NOTE | 2020-06-12 15:12 | Progress Note ---
Provider Note Provider Note: Patient remains stable post arrest. VS good at 132/78. He is still sedated on diprivan. Will D/C and assess neuro status.
[2020-06-12] MEDS: CLONIDINE 0.2 MG/24 HR PATCH.TDWK TD SCH (15:20)
[2020-06-12] MEDS: INSULIN REG, HUMAN 100 UNIT/ML 3 ML VIAL (PYX) SUBCUT SCH ×2 (15:21→17:55)
[2020-06-12] MEDS: INSULIN GLARGINE,HUM.REC.ANLOG 1,000 UNIT/10 ML VIAL SUBCUT SCH (15:22)
[2020-06-12 16:05] LABS: ANION GAP 9 (5-19); BLOOD UREA NITROGEN 29 mg/dL (7-20); CALCIUM 8.4 mg/dL (8.4-10.2); CARBON DIOXIDE 26 mmol/L (22-30); CHLORIDE 103 mmol/L (98-107); GLUCOSE 213 mg/dL (75-110); POTASSIUM 3.5 mmol/L (3.6-5.0)
[2020-06-12] MEDS ORDERED: REGADENOSON INJ 0.4 MG/5 ML DISP.SYRIN IV ONE (16:43)
[2020-06-12] MEDS: ACETAMINOPHEN 325 MG TABLET PO PRN (20:57)
[2020-06-12] MEDS: METOPROLOL TARTRATE PF/INJ 5 MG/5 ML SDV IV PRN (20:58)
[2020-06-12] MEDS: PANTOPRAZOLE SODIUM 40 MG VIAL IV SCH (21:03)
[2020-06-12 22:59] LABS: ANION GAP 6 (5-19); BLOOD UREA NITROGEN 29 mg/dL (7-20); CARBON DIOXIDE 25 mmol/L (22-30); CHLORIDE 106 mmol/L (98-107); GLUCOSE 149 mg/dL (75-110); POTASSIUM 3.3 mmol/L (3.6-5.0)
[2020-06-12] MEDS ORDERED: POTASSIUM CHLORIDE 20 MEQ PACKET PO ONE (23:40)
[2020-06-13] MEDS ORDERED: ENOXAPARIN SODIUM INJ 150 MG/1 ML DISP.SYRIN SUBCUT SCH
[2020-06-13] MEDS: INSULIN REG, HUMAN 100 UNIT/ML 3 ML VIAL (PYX) SUBCUT SCH ×4 (00:19→18:00)
[2020-06-13] MEDS: PROPOFOL 1,000 MG/100 ML INFUS..BTL IV PRN ×3 (03:34→20:45)
[2020-06-13] MEDS: METOPROLOL TARTRATE PF/INJ 5 MG/5 ML SDV IV PRN ×2 (05:15→12:03)
[2020-06-13] MEDS: ACETAMINOPHEN 325 MG TABLET PO PRN ×2 (05:15→14:43)
--- NOTE | 2020-06-13 07:19 | EKG REPORT ---
SEVERITY:- ABNORMAL ECG - ATRIAL FIBRILLATION, V-RATE 69-97 LEFT ANTERIOR FASCICULAR BLOCK PROBABLE ANTEROSEPTAL INFARCT, OLD BORDERLINE T WAVE ABNORMALITIES LATERAL LEADS ARE ALSO INVOLVED BORDERLINE PROLONGED QT INTERVAL : Confirmed by: Darrian Rowan MD 13-Jun-2020 07:18:54
[2020-06-13] MEDS: CARVEDILOL 12.5 MG TABLET PO SCH ×2 (09:20→21:52)
[2020-06-13] MEDS: ATORVASTATIN CALCIUM 40 MG TABLET PO SCH (09:20)
[2020-06-13] MEDS: PANTOPRAZOLE SODIUM 40 MG VIAL IV SCH ×2 (09:20→21:52)
[2020-06-13] MEDS: APIXABAN 2.5 MG TABLET PO SCH ×2 (09:21→17:32)
[2020-06-13] MEDS: INSULIN GLARGINE,HUM.REC.ANLOG 1,000 UNIT/10 ML VIAL SUBCUT SCH (10:00)
--- NOTE | 2020-06-13 17:43 | XCELERA REPORT ---
[address] [address] Transthoracic Echocardiogram Report Name: CATHY HALL Age: 59 yrs Gender: Male : 1960 Patient Status: Inpatient Patient Location: ICU^610^A Study Date: 06/12/2020 09:20 AM Height: 67 in Weight: 255 lb BSA: 2.2 m2 Procedure: A two-dimensional transthoracic echocardiogram with color flow and Doppler was performed. Study Quality: Poor. Reason For Study: Post cardiac arrest History: Post cardiac arrest. Ordering Physician: NICHOLAS MICHAEL Performed By: Hayley Mack Interpretation Summary The left ventricle is normal in size. There is moderate to severe concentric left ventricular hypertrophy. LV EF is 55% to 60% Left ventricular systolic function is normal. Probably no regional wall motion abnormality. There is no thrombus. Probably no ASD,VSD or PZFO . The right ventricle is grossly normal size. The right ventricle is not well visualized secondary to technical limitations The right atrium is normal. The left atrial size is normal. There is no evidence of mitral valve prolapse. There is no vegetation seen on the mitral valve. There is no mitral valve stenosis. There is a trace amount of mitral regurgitation There is no aortic valvular vegetation. There is no aortic valve stenosis There is no LVOT obstruction. No aortic regurgitation is present. There is no tricuspid stenosis. There is a trace amount of tricuspid regurgitation Tricuspid regurgitation jet envelope not well defined to measure RV systolic pressure accurately. There is no pulmonic valvular stenosis. There is a trace amount of pulmonic regurgitation The aortic root is normal size. The inferior vena cava appeared dilated and did not change with respiration (RAP > 20 mmHg) There is no pericardial effusion. MMode/2D Measurements & Calculations RVDd: 2.6 cm LVIDd: 4.1 cm FS: 25.5 % Ao root diam: 2.7 cm IVSd: 1.7 cm LVIDs: 3.0 cm EDV(Teich): 72.6 ml Ao root area: 5.9 cm2 LVPWd: 1.7 cm ESV(Teich): 35.7 ml EF(Teich): 50.8 % Doppler Measurements & Calculations MV E max kevin: MV dec slope: Ao V2 max: LV V1 max P.0 cm/sec 534.3 cm/sec2 121.1 cm/sec 4.6 mmHg MV dec time: 0.21 secAo max PG: LV V1 max: 5.9 mmHg 107.6 cm/sec PA V2 max: PI end-d kevin: 68.0 cm/sec 188.4 cm/sec PA max P.9 mmHg Left Ventricle The left ventricle is normal in size. There is moderate to severe concentric left ventricular hypertrophy. LV EF is 55% to 60%. Left ventricular systolic function is normal. LV diastolic function could not be adequately assessed due to atrial fibrilation. Probably no regional wall motion abnormality. There is no thrombus. Probably no ASD,VSD or PZFO . Right Ventricle The right ventricle is grossly normal size. The right ventricle is not well visualized secondary to technical limitations. Atria The right atrium is normal. The left atrial size is normal. Mitral Valve There is no evidence of mitral valve prolapse. There is no vegetation seen on the mitral valve. There is no mitral valve stenosis. There is a trace amount of mitral regurgitation. Aortic Valve There is no aortic valvular vegetation. There is no aortic valve stenosis. There is no LVOT obstruction. No aortic regurgitation is present. Tricuspid Valve There is no tricuspid stenosis. There is a trace amount of tricuspid regurgitation. Tricuspid regurgitation jet envelope not well defined to measure RV systolic pressure accurately. Pulmonic Valve There is no pulmonic valvular stenosis. There is a trace amount of pulmonic regurgitation. Great Vessels The aortic root is normal size. The inferior vena cava appeared dilated and did not change with respiration (RAP > 20 mmHg). Effusions There is no pericardial effusion. : NICHOLAS MICHAEL Lakshmi
[2020-06-13] MEDS: HYDROMORPHONE HCL INJ/PF 2 MG/ML AMPULE IV PRN (18:54)
--- NOTE | 2020-06-13 21:14 | PDOC CRITICAL CARE PROG REPORT ---
General Date:: 06/13/20 ICU Day:: 2 Ventilator Day:: 2 Hospital Day:: 2 Resuscitation Status: Full Code Events in the past 12 to 24 Hours:: Patient admitted on 06/12/2020 status post cardiac arrest. He became awake and alert this morning when weaned off of propofol. Review of systems relevant to events:: Neuro: Patient is arousable when weaned off of propofol. Plan will be to lighten sedation tomorrow to facilitate extubation. Pulmonary: Able to tolerate spontaneous mode today. Will wean to extubation as tolerated tomorrow. Status post Covid infection. Chest x-ray still shows signs consistent with Covid pneumonia despite his negative screen. Cardiovascular: As post cardiac arrest. Patient has been hemodynamically stable. DVT prophylaxis: Eliquis 2.5 mg p.o. twice daily. Renal: Follow renal panel in a.m. Patient with acute on chronic kidney disease. Gastrointestinal: Start tube feedings today. ID: No leukocytosis. Mild fever earlier this morning. Will follow fever curve and watch closely for signs of infection. Barriers to discharge from ICU: Plan to will be to wean patient to extubation if possible tomorrow. Reason for ICU Addmission:: Post Cardiac Arrest - Medications: Medications reviewed and adjusted accordingly: Yes Physical Exam Vital Signs: Temp Pulse Resp BP Pulse Ox 100.6 F H 95 15 176/100 H 100 06/13/20 20:00 06/13/20 20:00 06/13/20 20:00 06/13/20 20:00 06/13/20 20:00 Intake & Output 06/12/20 06/13/20 06/14/20 06:59 06:59 06:59 Intake Total 100 2017 231 Output Total 2735 780 Balance 100 -200 -703 Weight 121 kg 118.2 kg 118.2 kg Weight/Height Weight 118.2 kg Height 5 ft 7 in General appearance: PRESENT: no acute distress, obese Head exam: PRESENT: atraumatic, normocephalic Eye exam: PRESENT: EOMI, PERRLA Ear exam: PRESENT: normal external ear exam Mouth exam: PRESENT: moist, neck supple Neck exam: PRESENT: full ROM. ABSENT: JVD, lymphadenopathy, tracheal deviation Respiratory exam: PRESENT: rhonchi. ABSENT: accessory muscle use, wheezes Cardiovascular exam: PRESENT: RRR, +S1, +S2 Pulses: PRESENT: normal carotid pulses, normal radial pulses, normal dorsalis pedis pul Vascular exam: PRESENT: normal capillary refill GI/Abdominal exam: PRESENT: normal bowel sounds, soft. ABSENT: tenderness Extremities exam: PRESENT: full ROM Musculoskeletal exam: PRESENT: full ROM, normal inspection Neurological exam: PRESENT: awake, CN II-XII grossly intact Tubes/Lines: PRESENT: Endotracheal Tube Laboratory/Radiographs Laboratory Results: 06/12/20 00:23 06/12/20 22:29 06/12/20 06/12/20 06/13/20 21:21 22:29 19:50 Sodium Cancelled 137.3 Potassium Cancelled 3.3 L Chloride Cancelled 106 Carbon Dioxide Cancelled 25 Anion Gap Cancelled 6 BUN Cancelled 29 H Creatinine Cancelled 3.30 H Est GFR ( Amer) Cancelled 23 L Est GFR (Non-Af Amer) Cancelled Glucose Cancelled 149 H Calcium Cancelled 8.0 L Triglycerides 83 06/12/20 06/12/20 06/12/20 00:23 00:23 11:15 Creatine Kinase 111 Troponin I 0.035 Cancelled NT-Pro-B Natriuret Pep 6230 H 06/12/20 15:23 Creatine Kinase Troponin I 0.108 NT-Pro-B Natriuret Pep Impressions: Chest X-Ray 06/12/20 00:13 IMPRESSION: 1. Parenchymal opacification prominently in the mid and upper lung zones. There is improved aeration in the lower lobes. 2. Interval intubation and placement of an NG tube. Lines and tubes are in good position. Head CT 06/12/20 00:13 IMPRESSION: Questionable age indeterminate lacunar infarct in the medial left occipital lobe. Could consider further assessment with dedicated MRI. Opacification of the ethmoid air cells and nasal passages with endotracheal and enteric tubes in place TECHNICAL DOCUMENTATION: Quality ID # 436: Final reports with documentation of one or more dose reduction techniques (e.g., Automated exposure control, adjustment of the mA and/or kV according to patient size, use of iterative reconstruction technique) copyright 2011 [employer]- All Rights Reserved Lung Scan-VQ NM 06/12/20 03:13 IMPRESSION: Low probability for pulmonary embolus. All labs, radiographs, diagnostic studies and EKGs were personally reviewed: Yes In addition, reports of radiographic and diagnostic studies were read: Yes Assessment and Plan - Diagnosis (1) Respiratory failure Qualifiers: Chronicity: acute Respiratory failure complication: unspecified whether with hypoxia or hypercapnia Qualified Code(s): J96.00 - Acute respiratory failure, unspecified whether with hypoxia or hypercapnia Is this a current diagnosis for this admission?: Yes Plan: Continue to wean vent as tolerated. Plan will be to wean to extubate if possible tomorrow morning. (2) Acute kidney injury superimposed on chronic kidney disease Is this a current diagnosis for this admission?: Yes Plan: Obtain proBNP to assess volume load Repeat CXR in a.m. We will begin IV fluids if no signs of CHF in the setting of acute on chronic renal disease. Critical Time Critical Time (minutes): 62 Level of Care: ICU Anticipated discharge: Home Anticipated DC Timeframe: within 36 hours -: 1. The care of a critical patient is a dynamic process. This note is a member services representative synopsis but static in nature. The timeframe for treatments given in order is not necessarily the actual time these treatments may have been done. 2. This patient requires critical care secondary to ongoing requirements for therapy not offered or safe outside the critical care environment. Transfer to a lower level of care will result in altered life or limb morbidity and mortality. 3. Multidisciplinary rounds completed. 4. ABCDE bundle addressed.
[2020-06-14] MEDS: INSULIN REG, HUMAN 100 UNIT/ML 3 ML VIAL (PYX) SUBCUT SCH ×5 (00:13→23:49)
[2020-06-14] MEDS: AMINO AC/PROTEIN HYDR/WHEY PRO 11 GM/45 ML PKT NG SCH ×3 (00:13→17:16)
[2020-06-14] MEDS: METOPROLOL TARTRATE PF/INJ 5 MG/5 ML SDV IV PRN ×4 (00:42→18:51)
[2020-06-14] MEDS: HYDROMORPHONE HCL INJ/PF 2 MG/ML AMPULE IV PRN (01:40)
[2020-06-14] MEDS: ACETAMINOPHEN 325 MG TABLET PO PRN (03:45)
[2020-06-14 04:27] LABS: ABSOLUTE BASOPHILS # (AUTO) 0.1 10^3/uL (0.0-0.2); ABSOLUTE EOSINOPHILS # (AUTO) 0.4 10^3/uL (0.0-0.6); ABSOLUTE LYMPHOCYTES (AUTO) 0.6 10^3/uL (0.5-4.7); ABSOLUTE MONOCYTES (AUTO) 0.7 10^3/uL (0.1-1.4); ABSOLUTE NEUT (AUTO) 7.1 10^3/uL (1.7-8.2); BASOPHILS % (AUTO) 1.1 % (0-2); EOSINOPHILS % (AUTO) 4.3 % (0-6); HEMATOCRIT 31.5 % (37.9-51.0); HEMOGLOBIN 10.3 g/dL (13.5-17.0); LYMPHOCYTES % (AUTO) 6.8 % (13-45); MEAN CORPUSCULAR HEMOGLOBIN 25.6 pg (27.0-33.4); MEAN CORPUSCULAR HGB CONC 32.8 g/dL (32.0-36.0); MEAN CORPUSCULAR VOLUME 78 fl (80-97); MONOCYTES % (AUTO) 7.8 % (3-13); PLATELET COUNT 245 10^3/uL (150-450); RED BLOOD COUNT 4.03 10^6/uL (4.35-5.55); RED CELL DISTRIBUTION WIDTH 16.3 % (11.5-14.0); TOTAL CELLS COUNTED % (AUTO) 100 %; WHITE BLOOD COUNT 8.9 10^3/uL (4.0-10.5)
[2020-06-14 04:44] LABS: ALBUMIN 2.9 g/dL (3.5-5.0); ALKALINE PHOSPHATASE 63 U/L (38-126); ANION GAP 10 (5-19); ASPARTATE AMINO TRANSFERASE 23 U/L (17-59); BILIRUBIN,DIRECT 0.5 mg/dL (0.0-0.4); BILIRUBIN,TOTAL 1.6 mg/dL (0.2-1.3); BLOOD UREA NITROGEN 32 mg/dL (7-20); CALCIUM 8.3 mg/dL (8.4-10.2); CARBON DIOXIDE 23 mmol/L (22-30); CHLORIDE 106 mmol/L (98-107); GLUCOSE 98 mg/dL (75-110); POTASSIUM 3.6 mmol/L (3.6-5.0); TOTAL PROTEIN 6.2 g/dL (6.3-8.2)
[2020-06-14] MEDS ORDERED: AMIODARONE HCL INJ 150 MG/3 ML VIAL IV ONE ×2 (06:30→06:33)
[2020-06-14] MEDS ORDERED: AMIODARONE HCL 150 MG in DEXTROSE 5%-WATER 100 ML IV ONE (06:31)
[2020-06-14] MEDS: DEXTROSE 5%-WATER 500 ML with AMIODARONE HCL 900 MG IV PRN ×2 (06:49)
[2020-06-14] MEDS: CARVEDILOL 12.5 MG TABLET PO SCH ×2 (10:41→22:24)
[2020-06-14] MEDS: PANTOPRAZOLE SODIUM 40 MG VIAL IV SCH ×2 (10:41→22:24)
[2020-06-14] MEDS: APIXABAN 2.5 MG TABLET PO SCH ×2 (10:41→17:16)
[2020-06-14] MEDS: INSULIN GLARGINE,HUM.REC.ANLOG 1,000 UNIT/10 ML VIAL SUBCUT SCH (10:42)
[2020-06-14] MEDS: ATORVASTATIN CALCIUM 40 MG TABLET PO SCH (10:42)
--- NOTE | 2020-06-14 13:38 | RADIOLOGY REPORT (SQ) ---
EXAM DESCRIPTION: CHEST SINGLE VIEW IMAGES COMPLETED DATE/TIME: 06/14/2020 1:22 pm REASON FOR STUDY: Respiratory Failure COMPARISON: 06/12/2020 EXAM PARAMETERS: NUMBER OF VIEWS: One view. TECHNIQUE: Single frontal radiographic view of the chest acquired. RADIATION DOSE: NA LIMITATIONS: None. FINDINGS: LUNGS AND PLEURA: Improved aeration of the lungs with persistent retrocardiac opacity. Li petr small pleural effusions. No pneumothorax. MEDIASTINUM AND HILAR STRUCTURES: Stable. HEART AND VASCULAR STRUCTURES: Stable. BONES: No acute findings. HARDWARE: Endotracheal tube and enteric tube appear stable in position. OTHER: No other significant finding. IMPRESSION: 1. Improved pulmonary exam with persistent left lower lobe consolidation. 2. Stable lines and tubes. TECHNICAL DOCUMENTATION: JOB ID: [id number] 2010 [employer]- All Rights Reserved Reading location - IP/workstation name: [email or web address]
--- NOTE | 2020-06-14 15:29 | PDOC CRITICAL CARE PROG REPORT ---
General Date:: 06/14/20 ICU Day:: 3 Ventilator Day:: 3 Hospital Day:: 3 Resuscitation Status: Full Code Events in the past 12 to 24 Hours:: Patient admitted on 06/12/2020 status post cardiac arrest. He became awake and alert this morning when weaned off of propofol. 06/14/2020: Patient is easily arousable off of propofol but unable to follow commands. Although breathing comfortably on minimal vent settings, we will need to see improvement in his ability to protect his airway prior to extubation. Review of systems relevant to events:: Neuro: Patient is arousable when weaned off of propofol. Still not following commands well. Propofol weaned off. Pulmonary: Able to tolerate spontaneous mode with minimal settings. Unfortunately we will not be able to extubate him today as it does not appear he will be able to protect his airway. Status post Covid infection. Chest x-ray still shows signs consistent with Covid pneumonia despite his negative screen. Cardiovascular: As post cardiac arrest. Patient has been hemodynamically stable. DVT prophylaxis: Eliquis 2.5 mg p.o. twice daily. Renal: Follow renal panel in a.m. Patient with acute on chronic kidney disease. Pro-BNP elevated, will give albumin in hopes to perfuse his kidneys. Gastrointestinal: Start tube feedings today. ID: No leukocytosis. Mild fever earlier this morning. Will follow fever curve and watch closely for signs of infection. Barriers to discharge from ICU: Plan to will be to wean patient to extubation if possible tomorrow. Reason for ICU Addmission:: Post Cardiac Arrest - Medications: Medications reviewed and adjusted accordingly: Yes Physical Exam Vital Signs: Temp Pulse Resp BP Pulse Ox 100.8 F H 90 18 171/106 H 98 06/14/20 12:00 06/14/20 12:00 06/14/20 12:00 06/14/20 12:00 06/14/20 13:40 Intake & Output 06/13/20 06/14/20 06/15/20 06:59 06:59 06:59 Intake Total 2016 249 Output Total 3114 1505 180 Balance -718 -1256 -180 Weight 118.2 kg 118.2 kg 118.2 kg Weight/Height Weight 118.2 kg Height 5 ft 7 in General appearance: PRESENT: no acute distress, obese Head exam: PRESENT: atraumatic, normocephalic Eye exam: PRESENT: EOMI, PERRLA Ear exam: PRESENT: normal external ear exam Mouth exam: PRESENT: moist Neck exam: PRESENT: full ROM. ABSENT: JVD, lymphadenopathy Respiratory exam: PRESENT: clear to auscultation farooq Cardiovascular exam: PRESENT: irregular rhythm Vascular exam: PRESENT: normal capillary refill Extremities exam: ABSENT: pedal edema Musculoskeletal exam: PRESENT: full ROM, normal inspection Neurological exam: PRESENT: awake, CN II-XII grossly intact, other - Not following commands. ABSENT: alert Tubes/Lines: PRESENT: Endotracheal Tube Laboratory/Radiographs Laboratory Results: 06/14/20 04:19 06/14/20 04:19 06/13/20 06/14/20 06/14/20 19:50 04:19 04:19 WBC 8.9 RBC 4.03 L Hgb 10.3 L Hct 31.5 L MCV 78 L MCH 25.6 L MCHC 32.8 RDW 16.3 H Plt Count 245 Seg Neutrophils % 80.0 H Sodium 139.3 Potassium 3.6 Chloride 106 Carbon Dioxide 23 Anion Gap 10 BUN 32 H Creatinine 3.67 H Est GFR ( Amer) 21 L Glucose 98 Calcium 8.3 L Phosphorus 5.0 H Magnesium 2.0 Total Bilirubin 1.6 H AST 23 Alkaline Phosphatase 63 Total Protein 6.2 L Albumin 2.9 L Triglycerides 83 06/12/20 03:15 Catheterized Urine Urine Culture - Final NO GROWTH 2 DAYS 06/12/20 06/12/20 06/12/20 00:23 00:23 11:15 Creatine Kinase 111 Troponin I 0.035 Cancelled NT-Pro-B Natriuret Pep 6230 H 06/12/20 06/14/20 15:23 04:19 Creatine Kinase Troponin I 0.108 NT-Pro-B Natriuret Pep 7180 H Impressions: Head CT 06/12/20 00:13 IMPRESSION: Questionable age indeterminate lacunar infarct in the medial left occipital lobe. Could consider further assessment with dedicated MRI. Opacification of the ethmoid air cells and nasal passages with endotracheal and enteric tubes in place TECHNICAL DOCUMENTATION: Quality ID # [id number]: Final reports with documentation of one or more dose reduction techniques (e.g., Automated exposure control, adjustment of the mA and/or kV according to patient size, use of iterative reconstruction technique) copyright 2011 [employer]- All Rights Reserved Lung Scan-VQ NM 06/12/20 03:13 IMPRESSION: Low probability for pulmonary embolus. Chest X-Ray 06/14/20 00:00 IMPRESSION: 1. Improved pulmonary exam with persistent left lower lobe consolidation. 2. Stable lines and tubes. All labs, radiographs, diagnostic studies and EKGs were personally reviewed: Yes In addition, reports of radiographic and diagnostic studies were read: Yes Assessment and Plan - Diagnosis (1) Respiratory failure Qualifiers: Chronicity: acute Respiratory failure complication: unspecified whether with hypoxia or hypercapnia Qualified Code(s): J96.00 - Acute respiratory failure, unspecified whether with hypoxia or hypercapnia Is this a current diagnosis for this admission?: Yes Plan: Continue to wean vent as tolerated. Plan will be to wean to extubate if possible tomorrow morning if he is able to be awake enough to protect his airway.. (2) Acute kidney injury superimposed on chronic kidney disease Is this a current diagnosis for this admission?: Yes Plan: proBNP further elevated today. We will therefore need to be very conservative with volume resuscitation. We will attempt albumin to help promote renal perfusion. We will start Lasix if needed. Critical Time Critical Time (minutes): 60 Level of Care: ICU Anticipated discharge: Home with Homehealth Anticipated DC Timeframe: within 72 hours -: 1. The care of a critical patient is a dynamic process. This note is a medical billing representative synopsis but static in nature. The timeframe for treatments given in order is not necessarily the actual time these treatments may have been done. 2. This patient requires critical care secondary to ongoing requirements for therapy not offered or safe outside the critical care environment. Transfer to a lower level of care will result in altered life or limb morbidity and mortality. 3. Multidisciplinary rounds completed. 4. ABCDE bundle addressed.
[2020-06-14] MEDS ORDERED: ALBUMIN HUMAN 500 ML IV ONE (20:30)
[2020-06-15] MEDS: METOPROLOL TARTRATE PF/INJ 5 MG/5 ML SDV IV PRN ×4 (02:23→21:11)
[2020-06-15] MEDS: HYDROMORPHONE HCL INJ/PF 2 MG/ML AMPULE IV PRN ×3 (02:23→14:09)
[2020-06-15] MEDS ORDERED: HYDRALAZINE HCL INJ/PF 20 MG/1 ML SDV IV PRN (03:05)
[2020-06-15] MEDS: INSULIN REG, HUMAN 100 UNIT/ML 3 ML VIAL (PYX) SUBCUT SCH ×3 (05:39→17:17)
[2020-06-15 07:05] LABS: ABSOLUTE EOSINOPHILS # (AUTO) 0.2 10^3/uL (0.0-0.6); ABSOLUTE LYMPHOCYTES (AUTO) 0.6 10^3/uL (0.5-4.7); ABSOLUTE MONOCYTES (AUTO) 0.9 10^3/uL (0.1-1.4); ABSOLUTE NEUT (AUTO) 6.3 10^3/uL (1.7-8.2); BASOPHILS % (AUTO) 0.5 % (0-2); EOSINOPHILS % (AUTO) 2.6 % (0-6); HEMATOCRIT 31.1 % (37.9-51.0); HEMOGLOBIN 10.2 g/dL (13.5-17.0); LYMPHOCYTES % (AUTO) 7.3 % (13-45); MEAN CORPUSCULAR HEMOGLOBIN 25.3 pg (27.0-33.4); MEAN CORPUSCULAR HGB CONC 32.9 g/dL (32.0-36.0); MEAN CORPUSCULAR VOLUME 77 fl (80-97); MONOCYTES % (AUTO) 10.9 % (3-13); PLATELET COUNT 227 10^3/uL (150-450); RED BLOOD COUNT 4.05 10^6/uL (4.35-5.55); RED CELL DISTRIBUTION WIDTH 15.8 % (11.5-14.0); SEGMENTED NEUTROPHILS % (AUTO) 78.7 % (42-78); TOTAL CELLS COUNTED % (AUTO) 100 %
[2020-06-15 07:34] LABS: ANION GAP 8 (5-19); BLOOD UREA NITROGEN 46 mg/dL (7-20); CALCIUM 8.6 mg/dL (8.4-10.2); CARBON DIOXIDE 27 mmol/L (22-30); CHLORIDE 105 mmol/L (98-107); GLUCOSE 199 mg/dL (75-110); POTASSIUM 3.4 mmol/L (3.6-5.0)
[2020-06-15] MEDS: DEXTROSE 5%-WATER 500 ML with AMIODARONE HCL 900 MG IV PRN ×2 (08:54)
[2020-06-15] MEDS: INSULIN GLARGINE,HUM.REC.ANLOG 1,000 UNIT/10 ML VIAL SUBCUT SCH (09:46)
[2020-06-15] MEDS: AMINO AC/PROTEIN HYDR/WHEY PRO 11 GM/45 ML PKT NG SCH ×2 (09:47→17:17)
[2020-06-15] MEDS: CARVEDILOL 12.5 MG TABLET PO SCH ×2 (09:48→21:11)
[2020-06-15] MEDS: PANTOPRAZOLE SODIUM 40 MG VIAL IV SCH ×2 (09:48→21:12)
[2020-06-15] MEDS: APIXABAN 2.5 MG TABLET PO SCH ×2 (09:48→17:17)
[2020-06-15] MEDS: ATORVASTATIN CALCIUM 40 MG TABLET PO SCH (09:49)
[2020-06-15 12:20] LABS: ARTERIAL BLOOD BASE EXCESS -0.2 mmol/L; ARTERIAL BLOOD HCO3 24.4 mmol/L (20-24); ARTERIAL BLOOD O2 SATURATION 90.3 % (94-98); ARTERIAL BLOOD PCO2 39.9 mmHg (35-45); ARTERIAL BLOOD TOTAL CO2 25.6 mmol/L (23-27)
[2020-06-15 12:21] LABS: ARTERIAL BLOOD FIO2 30%
--- NOTE | 2020-06-15 14:20 | PDOC CRITICAL CARE PROG REPORT ---
General Date:: 06/15/20 ICU Day:: 4 Ventilator Day:: 4 Hospital Day:: 4 Resuscitation Status: Full Code Events in the past 12 to 24 Hours:: Patient admitted on 06/12/2020 status post cardiac arrest. He became awake and alert this morning when weaned off of propofol. 06/14/2020: Patient is easily arousable off of propofol but unable to follow commands. Although breathing comfortably on minimal vent settings, we will need to see improvement in his ability to protect his airway prior to extubation. 06/15/2020: Patient still with severe intermittent hypertension. He has made great progress on his ventilator settings. His ABG is normal, we will look to extubate. His mental status has improved although he still appears to be confused. I do believe however that he is awake and alert enough to protect his airway. Review of systems relevant to events:: Neuro: Propofol weaned off. He is awake and alert although he still seems confused. He is following commands well. Pulmonary: Able to tolerate spontaneous mode with minimal settings. He seems awake enough to protect his airway today and we will make an attempt to extubate him if ABG is within acceptable limits. Status post Covid infection. Chest x- ray still shows signs consistent with Covid pneumonia despite his negative scre en. Cardiovascular: As post cardiac arrest. Patient has been hemodynamically stable. DVT prophylaxis: Eliquis 2.5 mg p.o. twice daily. Renal: Follow renal panel in a.m. Patient with acute on chronic kidney disease. Pro-BNP elevated. Gastrointestinal: Patient does well with extubation, we will start a renal diet. If not, we will resume tube feeds with Nepro at 30 mL an hour after reintuba tion. ID: No leukocytosis. Will follow fever curve and watch closely for signs of infection. Barriers to discharge from ICU: If patient tolerates extubation well, he will be a candidate for ICU stepdown. Reason for ICU Addmission:: Post Cardiac Arrest - Medications: Medications reviewed and adjusted accordingly: Yes Physical Exam Vital Signs: Temp Pulse Resp BP Pulse Ox 100.0 F 86 11 L 185/104 H 100 06/15/20 12:00 06/15/20 12:00 06/15/20 12:01 06/15/20 12:01 06/15/20 12:01 Intake & Output 06/14/20 06/15/20 06/16/20 06:59 06:59 06:59 Intake Total 249 830 Output Total 6954 6285 970 Balance -7456 -375 -970 Weight 118.2 kg 118.7 kg Weight/Height Weight 118.7 kg Height 5 ft 7 in General appearance: PRESENT: no acute distress Head exam: PRESENT: atraumatic, normocephalic Eye exam: PRESENT: EOMI, PERRLA Ear exam: PRESENT: normal external ear exam Mouth exam: PRESENT: moist Neck exam: PRESENT: full ROM. ABSENT: JVD, lymphadenopathy Respiratory exam: PRESENT: clear to auscultation farooq. ABSENT: wheezes Cardiovascular exam: PRESENT: RRR Pulses: PRESENT: normal carotid pulses, normal radial pulses, +2 pedal pulses bilateral Vascular exam: PRESENT: normal capillary refill GI/Abdominal exam: PRESENT: normal bowel sounds Extremities exam: PRESENT: full ROM Musculoskeletal exam: PRESENT: normal inspection Neurological exam: PRESENT: alert, awake, CN II-XII grossly intact Psychiatric exam: PRESENT: appropriate affect Tubes/Lines: PRESENT: Endotracheal Tube Laboratory/Radiographs Laboratory Results: 06/15/20 06:33 06/15/20 06:33 06/15/20 06/15/20 06/15/20 06:33 06:33 12:02 WBC 8.0 RBC 4.05 L Hgb 10.2 L Hct 31.1 L MCV 77 L MCH 25.3 L MCHC 32.9 RDW 15.8 H Plt Count 227 Seg Neutrophils % 78.7 H Carbonic Acid 1.20 HCO3/H2CO3 Ratio 20:1 ABG pH 7.40 ABG pCO2 39.9 ABG pO2 58.0 L ABG HCO3 24.4 H ABG O2 Saturation 90.3 L ABG Base Excess -0.2 FiO2 30% Sodium 139.6 Potassium 3.4 L Chloride 105 Carbon Dioxide 27 Anion Gap 8 BUN 46 H Creatinine 3.88 H Est GFR ( Amer) 19 L Glucose 199 H Calcium 8.6 06/12/20 21:21 Tracheal Aspirate Gram Stain - Final 06/12/20 21:21 Tracheal Aspirate Sputum Culture - Final NORMAL ALCON 06/12/20 06/12/20 06/12/20 00:23 00:23 11:15 Creatine Kinase 111 Troponin I 0.035 Cancelled NT-Pro-B Natriuret Pep 6230 H 06/12/20 06/14/20 15:23 04:19 Creatine Kinase Troponin I 0.108 NT-Pro-B Natriuret Pep 7180 H Impressions: Head CT 06/12/20 00:13 IMPRESSION: Questionable age indeterminate lacunar infarct in the medial left occipital lobe. Could consider further assessment with dedicated MRI. Opacification of the ethmoid air cells and nasal passages with endotracheal and enteric tubes in place TECHNICAL DOCUMENTATION: Quality ID # 436: Final reports with documentation of one or more dose reduction techniques (e.g., Automated exposure control, adjustment of the mA and/or kV according to patient size, use of iterative reconstruction technique) copyright 2011 [employer]- All Rights Reserved Lung Scan-VQ NM 06/12/20 03:13 IMPRESSION: Low probability for pulmonary embolus. Chest X-Ray 06/14/20 00:00 IMPRESSION: 1. Improved pulmonary exam with persistent left lower lobe consolidation. 2. Stable lines and tubes. All labs, radiographs, diagnostic studies and EKGs were personally reviewed: Yes In addition, reports of radiographic and diagnostic studies were read: Yes Assessment and Plan - Diagnosis (1) Respiratory failure Qualifiers: Chronicity: acute Respiratory failure complication: unspecified whether with hypoxia or hypercapnia Qualified Code(s): J96.00 - Acute respiratory failure, unspecified whether with hypoxia or hypercapnia Is this a current diagnosis for this admission?: Yes Plan: Continue to wean vent as tolerated. We will extubate today and continue to assess closely. (2) Acute kidney injury superimposed on chronic kidney disease Is this a current diagnosis for this admission?: Yes Plan: proBNP elevated. We will therefore need to be very conservative with volume resuscitation. We will attempt albumin to help promote renal perfusion. We will start Lasix if needed. Critical Time Critical Time (minutes): 65 Level of Care: ICU Anticipated discharge: Acute Rehab Anticipated DC Timeframe: within 72 hours -: 1. The care of a critical patient is a dynamic process. This note is a product representative synopsis but static in nature. The timeframe for treatments given in order is not necessarily the actual time these treatments may have been done. 2. This patient requires critical care secondary to ongoing requirements for therapy not offered or safe outside the critical care environment. Transfer to a lower level of care will result in altered life or limb morbidity and mortality. 3. Multidisciplinary rounds completed. 4. ABCDE bundle addressed.
[2020-06-15] MEDS: POTASSI CL 20 MEQ/50 ML RIDER 20 MEQ/50 ML RTUPB IV SCH ×2 (15:56→17:00)
[2020-06-16] MEDS: INSULIN REG, HUMAN 100 UNIT/ML 3 ML VIAL (PYX) SUBCUT SCH ×4 (00:20→17:27)
[2020-06-16] MEDS: METOPROLOL TARTRATE PF/INJ 5 MG/5 ML SDV IV PRN (01:48)
[2020-06-16 04:33] LABS: ABSOLUTE BASOPHILS # (AUTO) 0.1 10^3/uL (0.0-0.2); ABSOLUTE EOSINOPHILS # (AUTO) 0.3 10^3/uL (0.0-0.6); ABSOLUTE LYMPHOCYTES (AUTO) 0.5 10^3/uL (0.5-4.7); ABSOLUTE MONOCYTES (AUTO) 0.9 10^3/uL (0.1-1.4); ABSOLUTE NEUT (AUTO) 7.2 10^3/uL (1.7-8.2); BASOPHILS % (AUTO) 0.6 % (0-2); EOSINOPHILS % (AUTO) 3.6 % (0-6); HEMATOCRIT 33.3 % (37.9-51.0); HEMOGLOBIN 10.6 g/dL (13.5-17.0); MEAN CORPUSCULAR HEMOGLOBIN 24.7 pg (27.0-33.4); MEAN CORPUSCULAR HGB CONC 31.8 g/dL (32.0-36.0); MEAN CORPUSCULAR VOLUME 78 fl (80-97); MONOCYTES % (AUTO) 10.2 % (3-13); PLATELET COUNT 256 10^3/uL (150-450); RED BLOOD COUNT 4.29 10^6/uL (4.35-5.55); RED CELL DISTRIBUTION WIDTH 15.9 % (11.5-14.0); SEGMENTED NEUTROPHILS % (AUTO) 79.6 % (42-78); TOTAL CELLS COUNTED % (AUTO) 100 %; WHITE BLOOD COUNT 9.1 10^3/uL (4.0-10.5)
[2020-06-16 04:50] LABS: ANION GAP 8 (5-19); BLOOD UREA NITROGEN 44 mg/dL (7-20); CALCIUM 8.7 mg/dL (8.4-10.2); CARBON DIOXIDE 24 mmol/L (22-30); CHLORIDE 109 mmol/L (98-107); GLUCOSE 133 mg/dL (75-110); POTASSIUM 3.7 mmol/L (3.6-5.0)
[2020-06-16] MEDS ORDERED: NICARDIPINE HCL RTU, ISO-OS 20 MG/200 ML RTUINJ IV ONE (05:09)
[2020-06-16] MEDS: NICARDIPINE HCL RTU, ISO-OS 20 MG/200 ML RTUINJ IV PRN ×6 (05:21→19:45)
[2020-06-16] MEDS: ACETAMINOPHEN 325 MG TABLET PO PRN ×2 (06:15→14:39)
[2020-06-16] MEDS: PANTOPRAZOLE SODIUM 40 MG VIAL IV SCH ×2 (09:54→22:22)
[2020-06-16] MEDS: INSULIN GLARGINE,HUM.REC.ANLOG 1,000 UNIT/10 ML VIAL SUBCUT SCH (09:54)
[2020-06-16] MEDS: AMINO AC/PROTEIN HYDR/WHEY PRO 11 GM/45 ML PKT NG SCH ×2 (09:56→17:54)
[2020-06-16] MEDS: CARVEDILOL 12.5 MG TABLET PO SCH ×2 (09:56→22:22)
[2020-06-16] MEDS: ATORVASTATIN CALCIUM 40 MG TABLET PO SCH (09:56)
[2020-06-16] MEDS: APIXABAN 2.5 MG TABLET PO SCH ×2 (09:57→17:31)
[2020-06-16] MEDS: DEXTROSE 5%-WATER 500 ML with AMIODARONE HCL 900 MG IV PRN ×2 (16:43)
--- NOTE | 2020-06-16 20:11 | PDOC CRITICAL CARE PROG REPORT ---
General Date:: 06/16/20 ICU Day:: 5 Hospital Day:: 5 Resuscitation Status: Full Code Events in the past 12 to 24 Hours:: Patient admitted on 06/12/2020 status post cardiac arrest. He became awake and alert this morning when weaned off of propofol. 06/14/2020: Patient is easily arousable off of propofol but unable to follow commands. Although breathing comfortably on minimal vent settings, we will need to see improvement in his ability to protect his airway prior to extubation. 06/15/2020: Patient still with severe intermittent hypertension. He has made great progress on his ventilator settings. His ABG is normal, we will look to extubate. His mental status has improved although he still appears to be confused. I do believe however that he is awake and alert enough to protect his airway. 06/16/2020: Patient was started on a Cardene drip overnight and his blood pressure is much better controlled at this time. He was extubated yesterday and has been breathing comfortably throughout today. If not for his Cardene drip, he would be appropriate for transfer to the medical floor. We will attempt to transition to p.o. Mental status has improved significantly however he still does appear to have some mild deficits. I have spoken at length with his today who states he has no deficits at baseline. Review of systems relevant to events:: Neuro: Patient is much more awake and alert today. Pulmonary: Extubated yesterday afternoon, patient is breathing very comfortably today. Status post Covid infection. Chest x-ray still shows signs consistent with Covid pneumonia despite his negative screen. Cardiovascular: Status post cardiac arrest. Patient has been hemodynamically stable. DVT prophylaxis: Eliquis 2.5 mg p.o. twice daily. Renal: Follow renal panel in a.m. Patient with acute on chronic kidney disease. Pro-BNP elevated. BUN/CR slightly improved today. Gastrointestinal: Patient is tolerating p.o. very well and was started on a renal diet. ID: No leukocytosis. Will follow fever curve and watch closely for signs of infection. Barriers to discharge from ICU: Patient will be able to be transferred out of the ICU once off of his Cardene drip. Reason for ICU Addmission:: Post Cardiac Arrest - Medications: Medications reviewed and adjusted accordingly: Yes Physical Exam Vital Signs: Temp Pulse Resp BP Pulse Ox 99.9 F 92 21 H 132/98 H 94 12/26/20 19:43 06/16/20 18:00 06/16/20 18:00 06/16/20 18:00 06/16/20 18:00 Intake & Output 06/15/20 06/16/20 06/17/20 06:59 06:59 06:59 Intake Total 065 01 2199 Output Total 1205 2141 1150 Balance -375 2111 445 Weight 118.7 kg 117.3 kg 117.3 kg Weight/Height Weight 117.3 kg Height 5 ft 7 in General appearance: PRESENT: no acute distress Head exam: PRESENT: atraumatic, normocephalic Eye exam: PRESENT: EOMI, PERRLA Ear exam: PRESENT: normal external ear exam Mouth exam: PRESENT: moist Neck exam: PRESENT: full ROM. ABSENT: JVD, lymphadenopathy, tenderness Respiratory exam: PRESENT: clear to auscultation farooq, symmetrical, unlabored. ABSENT: rhonchi, wheezes Cardiovascular exam: PRESENT: RRR, +S1, +S2 Pulses: PRESENT: normal carotid pulses, normal radial pulses Vascular exam: PRESENT: normal capillary refill GI/Abdominal exam: PRESENT: normal bowel sounds Musculoskeletal exam: PRESENT: full ROM, normal inspection Neurological exam: PRESENT: alert, altered, awake, oriented to person, oriented to place, oriented to time, oriented to situation, CN II-XII grossly intact Psychiatric exam: PRESENT: appropriate affect Skin exam: PRESENT: normal color Laboratory/Radiographs Laboratory Results: 06/16/20 04:07 06/16/20 04:07 06/16/20 06/16/20 04:07 04:07 WBC 9.1 RBC 4.29 L Hgb 10.6 L Hct 33.3 L MCV 78 L MCH 24.7 L MCHC 31.8 L RDW 15.9 H Plt Count 256 Seg Neutrophils % 79.6 H Sodium 141.0 Potassium 3.7 Chloride 109 H Carbon Dioxide 24 Anion Gap 8 BUN 44 H Creatinine 3.26 H Est GFR ( Amer) 24 L Glucose 133 H Calcium 8.7 06/12/20 06/12/20 06/12/20 00:23 00:23 11:15 Creatine Kinase 111 Troponin I 0.035 Cancelled NT-Pro-B Natriuret Pep 6230 H 06/12/20 06/14/20 15:23 04:19 Creatine Kinase Troponin I 0.108 NT-Pro-B Natriuret Pep 7180 H Impressions: Head CT 06/12/20 00:13 IMPRESSION: Questionable age indeterminate lacunar infarct in the medial left occipital lobe. Could consider further assessment with dedicated MRI. Opacification of the ethmoid air cells and nasal passages with endotracheal and enteric tubes in place TECHNICAL DOCUMENTATION: Quality ID # 436: Final reports with documentation of one or more dose reduction techniques (e.g., Automated exposure control, adjustment of the mA and/or kV according to patient size, use of iterative reconstruction technique) copyright 2011 [employer]- All Rights Reserved Lung Scan-VQ NM 06/12/20 03:13 IMPRESSION: Low probability for pulmonary embolus. Chest X-Ray 06/14/20 00:00 IMPRESSION: 1. Improved pulmonary exam with persistent left lower lobe consolidation. 2. Stable lines and tubes. All labs, radiographs, diagnostic studies and EKGs were personally reviewed: Yes In addition, reports of radiographic and diagnostic studies were read: Yes Assessment and Plan - Diagnosis (1) Respiratory failure Qualifiers: Chronicity: acute Respiratory failure complication: unspecified whether with hypoxia or hypercapnia Qualified Code(s): J96.00 - Acute respiratory failure, unspecified whether with hypoxia or hypercapnia Is this a current diagnosis for this admission?: Yes Plan: Patient successfully extubated yesterday and is breathing comfortably. Monitor for respiratory distress. (2) Acute kidney injury superimposed on chronic kidney disease Is this a current diagnosis for this admission?: Yes Plan: . BUN/CR mildly improved today. Continue to follow closely and follow fluid status. proBNP was elevated yesterday. No difficulty oxygenating at this time. Critical Time Critical Time (minutes): 50 Level of Care: ICU Anticipated discharge: Home with Homehealth Anticipated DC Timeframe: within 72 hours -: 1. The care of a critical patient is a dynamic process. This note is a independent sales representative synopsis but static in nature. The timeframe for treatments given in order is not necessarily the actual time these treatments may have been done. 2. This patient requires critical care secondary to ongoing requirements for therapy not offered or safe outside the critical care environment. Transfer to a lower level of care will result in altered life or limb morbidity and mortality. 3. Multidisciplinary rounds completed. 4. ABCDE bundle addressed.
[2020-06-16] MEDS: HYDRALAZINE HCL 50 MG TABLET PO SCH ×2 (20:17→22:29)
[2020-06-17] MEDS: INSULIN REG, HUMAN 100 UNIT/ML 3 ML VIAL (PYX) SUBCUT SCH ×4 (00:28→17:20)
[2020-06-17] MEDS: HYDRALAZINE HCL 50 MG TABLET PO SCH ×3 (03:36→17:20)
[2020-06-17 07:26] LABS: ABSOLUTE BASOPHILS # (AUTO) 0.1 10^3/uL (0.0-0.2); ABSOLUTE EOSINOPHILS # (AUTO) 0.2 10^3/uL (0.0-0.6); ABSOLUTE LYMPHOCYTES (AUTO) 0.6 10^3/uL (0.5-4.7); ABSOLUTE MONOCYTES (AUTO) 0.9 10^3/uL (0.1-1.4); ABSOLUTE NEUT (AUTO) 7.4 10^3/uL (1.7-8.2); BASOPHILS % (AUTO) 0.8 % (0-2); EOSINOPHILS % (AUTO) 2.6 % (0-6); HEMATOCRIT 28.8 % (37.9-51.0); HEMOGLOBIN 9.6 g/dL (13.5-17.0); LYMPHOCYTES % (AUTO) 6.5 % (13-45); MEAN CORPUSCULAR HEMOGLOBIN 25.4 pg (27.0-33.4); MEAN CORPUSCULAR HGB CONC 33.3 g/dL (32.0-36.0); MEAN CORPUSCULAR VOLUME 76 fl (80-97); PLATELET COUNT 282 10^3/uL (150-450); RED BLOOD COUNT 3.78 10^6/uL (4.35-5.55); RED CELL DISTRIBUTION WIDTH 16.2 % (11.5-14.0); SEGMENTED NEUTROPHILS % (AUTO) 80.1 % (42-78); TOTAL CELLS COUNTED % (AUTO) 100 %; WHITE BLOOD COUNT 9.2 10^3/uL (4.0-10.5)
[2020-06-17 07:40] LABS: ANION GAP 5 (5-19); BLOOD UREA NITROGEN 38 mg/dL (7-20); CALCIUM 8.3 mg/dL (8.4-10.2); CARBON DIOXIDE 25 mmol/L (22-30); CHLORIDE 109 mmol/L (98-107); GLUCOSE 104 mg/dL (75-110); POTASSIUM 3.3 mmol/L (3.6-5.0)
[2020-06-17] MEDS: METOPROLOL TARTRATE PF/INJ 5 MG/5 ML SDV IV PRN ×2 (07:41→14:33)
[2020-06-17] MEDS ORDERED: DEXTROSE 5%-WATER 500 ML with AMIODARONE HCL 900 MG IV PRN ×2 (08:31)
[2020-06-17] MEDS: ATORVASTATIN CALCIUM 40 MG TABLET PO SCH (09:18)
[2020-06-17] MEDS: APIXABAN 2.5 MG TABLET PO SCH ×2 (09:18→17:20)
[2020-06-17] MEDS: PANTOPRAZOLE SODIUM 40 MG VIAL IV SCH (09:18)
[2020-06-17] MEDS: CARVEDILOL 12.5 MG TABLET PO SCH ×2 (09:18→21:40)
[2020-06-17] MEDS: AMINO AC/PROTEIN HYDR/WHEY PRO 11 GM/45 ML PKT NG SCH (10:22)
[2020-06-17] MEDS: INSULIN GLARGINE,HUM.REC.ANLOG 1,000 UNIT/10 ML VIAL SUBCUT SCH (10:30)
--- NOTE | 2020-06-17 12:57 | PDOC CRITICAL CARE PROG REPORT ---
General Date:: 06/17/20 ICU Day:: 5 Hospital Day:: 5 Resuscitation Status: Full Code Events in the past 12 to 24 Hours:: Patient admitted on 06/12/2020 status post cardiac arrest. He became awake and alert this morning when weaned off of propofol. 06/14/2020: Patient is easily arousable off of propofol but unable to follow commands. Although breathing comfortably on minimal vent settings, we will need to see improvement in his ability to protect his airway prior to extubation. 06/15/2020: Patient still with severe intermittent hypertension. He has made great progress on his ventilator settings. His ABG is normal, we will look to extubate. His mental status has improved although he still appears to be confused. I do believe however that he is awake and alert enough to protect his airway. 06/16/2020: Patient was started on a Cardene drip overnight and his blood pressure is much better controlled at this time. He was extubated yesterday and has been breathing comfortably throughout today. If not for his Cardene drip, he would be appropriate for transfer to the medical floor. We will attempt to transition to p.o. Mental status has improved significantly however he still does appear to have some mild deficits. I have spoken at length with his today who states he has no deficits at baseline 06/17: Awake alert, eating drinking and wants to go home. Downgraded. Review of systems relevant to events:: CV Reason for ICU Addmission:: Post Cardiac Arrest. Now extubated, doing well. - Medications: Medications reviewed and adjusted accordingly: Yes Vasopressors:: None Sedation:: None Physical Exam Vital Signs: Temp Pulse Resp BP Pulse Ox 98.9 F 92 20 163/89 H 98 06/17/20 07:35 06/16/20 18:00 06/17/20 12:30 06/17/20 12:30 06/17/20 12:30 Intake & Output 06/16/20 06/17/20 06/18/20 06:59 06:59 06:59 Intake Total 27 1631 Output Total 2141 1750 Balance -2113 -119 Weight 117.3 kg 117.3 kg Weight/Height Weight 117.3 kg Height 5 ft 7 in General appearance: PRESENT: no acute distress, well-developed, well-nourished Head exam: PRESENT: atraumatic, normocephalic Eye exam: PRESENT: conjunctiva pink, EOMI, PERRLA. ABSENT: scleral icterus Ear exam: PRESENT: normal external ear exam Mouth exam: PRESENT: moist, tongue midline Respiratory exam: PRESENT: clear to auscultation farooq. ABSENT: rales, rhonchi, wheezes Cardiovascular exam: PRESENT: irregular rhythm. ABSENT: diastolic murmur, rubs, systolic murmur GI/Abdominal exam: PRESENT: normal bowel sounds, soft. ABSENT: distended, guarding, mass, organolmegaly, rebound, tenderness Rectal exam: PRESENT: deferred Gentrourinary exam: PRESENT: indwelling catheter Extremities exam: PRESENT: full ROM. ABSENT: calf tenderness, clubbing, pedal edema Musculoskeletal exam: PRESENT: normal inspection Neurological exam: PRESENT: alert, awake, oriented to person, oriented to place, oriented to time, oriented to situation, CN II-XII grossly intact. ABSENT: motor sensory deficit Psychiatric exam: PRESENT: appropriate affect, normal mood. ABSENT: homicidal ideation, suicidal ideation Skin exam: PRESENT: dry, intact, warm. ABSENT: cyanosis, rash Laboratory/Radiographs Laboratory Results: 06/17/20 07:14 06/17/20 07:14 06/17/20 06/17/20 07:14 07:14 WBC 9.2 RBC 3.78 L Hgb 9.6 L Hct 28.8 L MCV 76 L MCH 25.4 L MCHC 33.3 RDW 16.2 H Plt Count 282 Seg Neutrophils % 80.1 H Sodium 139.2 Potassium 3.3 L Chloride 109 H Carbon Dioxide 25 Anion Gap 5 BUN 38 H Creatinine 3.01 H Est GFR ( Amer) 26 L Glucose 104 Calcium 8.3 L 06/12/20 01:25 Blood Blood Culture - Final NO GROWTH IN 5 DAYS 06/12/20 00:23 Blood Blood Culture - Final NO GROWTH IN 5 DAYS 06/12/20 06/12/20 06/12/20 00:23 00:23 11:15 Creatine Kinase 111 Troponin I 0.035 Cancelled NT-Pro-B Natriuret Pep 6230 H 06/12/20 06/14/20 15:23 04:19 Creatine Kinase Troponin I 0.108 NT-Pro-B Natriuret Pep 7180 H Impressions: Head CT 06/12/20 00:13 IMPRESSION: Questionable age indeterminate lacunar infarct in the medial left occipital lobe. Could consider further assessment with dedicated MRI. Opacification of the ethmoid air cells and nasal passages with endotracheal and enteric tubes in place TECHNICAL DOCUMENTATION: Quality ID # 436: Final reports with documentation of one or more dose reduction techniques (e.g., Automated exposure control, adjustment of the mA and/or kV according to patient size, use of iterative reconstruction technique) copyright 2011 [employer]- All Rights Reserved Lung Scan-VQ NM 06/12/20 03:13 IMPRESSION: Low probability for pulmonary embolus. Chest X-Ray 06/14/20 00:00 IMPRESSION: 1. Improved pulmonary exam with persistent left lower lobe c onsolidation. 2. Stable lines and tubes. All labs, radiographs, diagnostic studies and EKGs were personally reviewed: Yes In addition, reports of radiographic and diagnostic studies were read: Yes Assessment and Plan - Diagnosis (1) Cardiac arrest Is this a current diagnosis for this admission?: Yes Plan: Happened at home. Pt has no recollection of events. Totally awake and alert. Question if he did arest or had a near arrest because he has recovered so well. (2) Chronic atrial fibrillation Is this a current diagnosis for this admission?: Yes Plan: Now on PO amiodarone. Eliquis. Present for years. (3) Chronic kidney disease, stage 4 (severe) Is this a current diagnosis for this admission?: Yes Plan: GFR 22 Plan Summary: Stop IV amiodarone. PO get OOB, PT downgrade to tele. Critical Time Critical Time (minutes): 35 Level of Care: TELE Anticipated discharge: Home Anticipated DC Timeframe: within 72 hours -: 1. The care of a critical patient is a dynamic process. This note is a phlebotomy services representative synopsis but static in nature. The timeframe for treatments given in order is not necessarily the actual time these treatments may have been done. 2. This patient requires critical care secondary to ongoing requirements for therapy not offered or safe outside the critical care environment. Transfer to a lower level of care will result in altered life or limb morbidity and mortality. 3. Multidisciplinary rounds completed. 4. ABCDE bundle addressed.
[2020-06-17] MEDS: AMIODARONE HCL 200 MG TABLET PO SCH ×2 (13:29→21:40)
[2020-06-17] MEDS: POTASSI CL 20 MEQ/50 ML RIDER 20 MEQ/50 ML RTUPB IV SCH (23:30)
[2020-06-18] MEDS: HYDRALAZINE HCL 50 MG TABLET PO SCH ×3 (01:22→17:57)
[2020-06-18] MEDS: POTASSI CL 20 MEQ/50 ML RIDER 20 MEQ/50 ML RTUPB IV SCH (01:22)
[2020-06-18] MEDS: METOPROLOL TARTRATE PF/INJ 5 MG/5 ML SDV IV PRN ×2 (01:29→05:53)
[2020-06-18] MEDS: INSULIN REG, HUMAN 100 UNIT/ML 3 ML VIAL (PYX) SUBCUT SCH ×5 (01:32→21:45)
[2020-06-18] MEDS ORDERED: LABETALOL HCL INJ 20 MG/4 ML DISP.SYRIN IV ONE (03:45)
[2020-06-18 05:19] LABS: ABSOLUTE EOSINOPHILS # (AUTO) 0.2 10^3/uL (0.0-0.6); ABSOLUTE LYMPHOCYTES (AUTO) 0.7 10^3/uL (0.5-4.7); ABSOLUTE MONOCYTES (AUTO) 1.1 10^3/uL (0.1-1.4); ABSOLUTE NEUT (AUTO) 7.2 10^3/uL (1.7-8.2); BASOPHILS % (AUTO) 0.5 % (0-2); EOSINOPHILS % (AUTO) 2.6 % (0-6); HEMATOCRIT 26.9 % (37.9-51.0); LYMPHOCYTES % (AUTO) 7.3 % (13-45); MEAN CORPUSCULAR HEMOGLOBIN 25.4 pg (27.0-33.4); MEAN CORPUSCULAR HGB CONC 33.2 g/dL (32.0-36.0); MEAN CORPUSCULAR VOLUME 77 fl (80-97); MONOCYTES % (AUTO) 11.5 % (3-13); PLATELET COUNT 277 10^3/uL (150-450); RED BLOOD COUNT 3.52 10^6/uL (4.35-5.55); RED CELL DISTRIBUTION WIDTH 16.2 % (11.5-14.0); SEGMENTED NEUTROPHILS % (AUTO) 78.1 % (42-78); TOTAL CELLS COUNTED % (AUTO) 100 %; WHITE BLOOD COUNT 9.3 10^3/uL (4.0-10.5)
[2020-06-18 05:45] LABS: ALBUMIN 2.5 g/dL (3.5-5.0); ALKALINE PHOSPHATASE 62 U/L (38-126); ANION GAP 8 (5-19); ASPARTATE AMINO TRANSFERASE 29 U/L (17-59); BILIRUBIN,DIRECT 0.4 mg/dL (0.0-0.4); BILIRUBIN,TOTAL 1.1 mg/dL (0.2-1.3); BLOOD UREA NITROGEN 31 mg/dL (7-20); CALCIUM 8.2 mg/dL (8.4-10.2); CARBON DIOXIDE 24 mmol/L (22-30); CHLORIDE 108 mmol/L (98-107); GLUCOSE 106 mg/dL (75-110); POTASSIUM 3.5 mmol/L (3.6-5.0); TOTAL PROTEIN 5.4 g/dL (6.3-8.2)
[2020-06-18] MEDS ORDERED: POTASSIUM CHLORIDE 10 MEQ TABLET.ER PO ONE (09:00)
[2020-06-18] MEDS: APIXABAN 2.5 MG TABLET PO SCH ×2 (09:30→17:57)
[2020-06-18] MEDS: CARVEDILOL 12.5 MG TABLET PO SCH ×2 (09:30→21:41)
[2020-06-18] MEDS: AMIODARONE HCL 200 MG TABLET PO SCH ×2 (09:31→21:41)
[2020-06-18] MEDS: ATORVASTATIN CALCIUM 40 MG TABLET PO SCH (09:31)
[2020-06-18] MEDS: NIFEDIPINE 30 MG TAB.ER.24 PO SCH ×2 (09:31→21:41)
[2020-06-18] MEDS: INSULIN GLARGINE,HUM.REC.ANLOG 1,000 UNIT/10 ML VIAL SUBCUT SCH (09:44)
[2020-06-18] MEDS ORDERED: ACETAMINOPHEN 325 MG TABLET PO PRN (14:53)
--- NOTE | 2020-06-18 16:04 | RADIOLOGY REPORT (SQ) ---
EXAM DESCRIPTION: VENOUS UNILATERAL UPPER IMAGES COMPLETED DATE/TIME: 06/18/2020 3:53 pm REASON FOR STUDY: edema, erythema, pain COMPARISON: None. TECHNIQUE: Dynamic and static anna scale and color images acquired of the left arm venous system. Se lected spectral images acquired with additional compression and augmentation maneuvers. The contralat eral subclavian vein and internal jugular vein were also imaged. Images stored on PACS. LIMITATIONS: None. FINDINGS: INTERNAL JUGULAR VEIN: Normal phasicity, compression, augmentation. No visualized echogeni c material on anna scale. No defects on color images. Comparison opposite side normal. SUBCLAVIAN VEIN: Normal compression, augmentation. No visualized echogenic material on anna scale. No defects on color images. AXILLARY VEIN: Normal compression, augmentation. No visualized echogenic material on anna scale. No d efects on color images. BRACHIAL VEIN: Normal compression, augmentation. No visualized echogenic material on anna scale. No d efects on color images. BASILIC VEIN: Normal compression, augmentation. No visualized echogenic material on anna scale. No de fects on color images. CEPHALIC VEIN: Normal compression, augmentation. No visualized echogenic material on anna scale. No d efects on color images. OTHER: No other significant finding. IMPRESSION: NO EVIDENCE DVT OR SVT LEFT ARM. TECHNICAL DOCUMENTATION: JOB ID: [id number] 2010 [employer]- All Rights Reserved Reading location - IP/workstation name: [email or web address]
[2020-06-18] MEDS ORDERED: LORAZEPAM INJ 2 MG/1 ML VIAL IV ONE (18:29)
[2020-06-18] MEDS ORDERED: LORAZEPAM INJ 2 MG/1 ML VIAL ONE (18:30)
[2020-06-18] MEDS ORDERED: METHYLPREDNISOLONE INJ 40 MG/1 ML SDV IV ONE ×2 (19:07→21:30)
[2020-06-18] MEDS ORDERED: FUROSEMIDE INJ/PF 20 MG/2 ML SDV IV ONE ×2 (19:29→21:30)
--- NOTE | 2020-06-18 19:39 | PDOC PROGRESS REPORT ---
Subjective Date:: 06/18/20 Subjective:: The patient is a 59-year-old male with a past medical history of atrial fibrillation, CHF, hypertension, CKD, recent COVID-19 illness, and obesity who was admitted to the field tech service on 06/12/2020 for post cardiac arrest. Unfortunately, information is limited regarding what occurred on scene. But per records, upon EMS arrival, [facility] had already provided 1 shock via AED. Initial rhythm for EMS was asystole. ACLS protocol was initiated for 3 minutes and after 1 dose of epinephrine and Narcan the patient achieved ROSC with alert but disoriented mental status. They patient can only recall that he felt short of breath the day that this occurred. He denies remembering chest discomfort/pain or palpitations. Patient was extubated 06/15/20. He did require a cardene gtt for BP control. During prior admission, he required a Nitro gtt for BP control. He was downgraded to the medical floor and service transitioned to the hospitalists on 06/17/20. The patient was seen on morning rounds. He is found sitting upright to the recliner, comfortably, on supplemental oxygen via nasal cannula. He is not home O2 dependent. Patient is noted to be oriented x4 but with delayed responses, occasional difficulty with word finding, and occasional repetitive statements. No facial asymmetry or focal deficits were noted. Per ICU notes, conversation was had with the patient's significant other who expressed that he does not have any deficits at baseline. Therefore, there was some concern for possible CVA event. CT of the head was negative. Patient is agreeable to MRI imaging today. He does report left hand and forearm edema and tenderness; nurse notes indicated that the IV in L hand had extravasated while infusing amiodarone on 06/16/2020. A skin marker line to the mid forearm shows that the erythema and edema have extended; now to the AC area. Otherwise, he states that he feels well other than continued fatigue, and desires to be discharged home soon as possible. He denies fever, chills, chest pain, palpitations, dyspnea, orthopnea, cough, abdominal pain, nausea, vomiting, diarrhea. He has no other questions or concerns at this time. No concerns per nursing. Reason For Visit: POST CARDIAC ARREST Physical Exam Vital Signs: Temp Pulse Resp BP Pulse Ox 97.8 F 83 18 142/74 H 96 06/18/20 16:12 06/18/20 16:12 06/18/20 16:12 06/18/20 16:12 06/18/20 16:12 Intake & Output 06/17/20 06/18/20 06/19/20 06:59 06:59 06:59 Intake Total 1631 1211 980 Output Total 1750 425 450 Balance -119 786 530 Weight 117.3 kg 117.3 kg General appearance: PRESENT: no acute distress, cooperative, morbidly obese, wel l-developed, well-nourished Head exam: PRESENT: atraumatic, normocephalic Eye exam: PRESENT: conjunctiva pink, EOMI, PERRLA. ABSENT: scleral icterus Mouth exam: PRESENT: moist, tongue midline Respiratory exam: PRESENT: clear to auscultation farooq, symmetrical, unlabored, other - Supplemental oxygen by nasal cannula. ABSENT: rales, rhonchi, wheezes Cardiovascular exam: PRESENT: irregular rhythm. ABSENT: diastolic murmur, rubs, systolic murmur Pulses: PRESENT: normal dorsalis pedis pul Vascular exam: PRESENT: normal capillary refill GI/Abdominal exam: PRESENT: normal bowel sounds, soft. ABSENT: distended, guarding, mass, organolmegaly, rebound, tenderness Rectal exam: PRESENT: deferred Extremities exam: PRESENT: full ROM, pedal edema - Bilaterally, +1 edema - Right hand and BLE, +2 edema - Left hand and forearm.. ABSENT: calf tenderness, clubbing Neurological exam: PRESENT: alert, awake, oriented to person, oriented to place, oriented to time, oriented to situation, CN II-XII grossly intact, other - Occasional delayed/slurred speech and difficulty with word finding.. ABSENT: motor sensory deficit Psychiatric exam: PRESENT: appropriate affect, normal mood. ABSENT: homicidal ideation, suicidal ideation Skin exam: PRESENT: dry, erythema - Left hand and forearm, intact, warm. ABSENT: cyanosis, rash Results Laboratory Results: 06/18/20 04:41 06/18/20 04:41 06/18/20 06/18/20 04:41 04:41 WBC 9.3 RBC 3.52 L Hgb 9.0 L Hct 26.9 L MCV 77 L MCH 25.4 L MCHC 33.2 RDW 16.2 H Plt Count 277 Seg Neutrophils % 78.1 H Sodium 139.5 Potassium 3.5 L Chloride 108 H Carbon Dioxide 24 Anion Gap 8 BUN 31 H Creatinine 3.09 H Est GFR ( Amer) 25 L Glucose 106 Calcium 8.2 L Magnesium 2.0 Total Bilirubin 1.1 AST 29 Alkaline Phosphatase 62 Total Protein 5.4 L Albumin 2.5 L 06/12/20 06/12/20 06/12/20 00:23 00:23 11:15 Creatine Kinase 111 Troponin I 0.035 Cancelled NT-Pro-B Natriuret Pep 6230 H 06/12/20 06/14/20 15:23 04:19 Creatine Kinase Troponin I 0.108 NT-Pro-B Natriuret Pep 7180 H Impressions: Head CT 06/12/20 00:13 IMPRESSION: Questionable age indeterminate lacunar infarct in the medial left occipital lobe. Could consider further assessment with dedicated MRI. Opacification of the ethmoid air cells and nasal passages with endotracheal and enteric tubes in place TECHNICAL DOCUMENTATION: Quality ID # 436: Final reports with documentation of one or more dose reduction techniques (e.g., Automated exposure control, adjustment of the mA and/or kV according to patient size, use of iterative reconstruction technique) copyright 2011 [employer]- All Rights Reserved Lung Scan-VQ NM 06/12/20 03:13 IMPRESSION: Low probability for pulmonary embolus. Chest X-Ray 06/14/20 00:00 IMPRESSION: 1. Improved pulmonary exam with persistent left lower lobe consolidation. 2. Stable lines and tubes. Venous Doppler Study 06/18/20 00:00 IMPRESSION: NO EVIDENCE DVT OR SVT LEFT ARM. Assessment and Plan - Diagnosis (1) Cardiac arrest Is this a current diagnosis for this admission?: Yes Plan: Happened at home. Pt has no recollection of events. Remembers shortness of breath today. Denies recent chest discomfort or palpitations. Intubated 06/12/20 - 06/15/20 Per EMS; received AED shock x 1, 1 mg epi, 1 dose Narcan, and 3 min total ACLS protocol. Close outpatient cardiology evaluation. (2) Chronic atrial fibrillation Is this a current diagnosis for this admission?: Yes Plan: Now on PO amiodarone. Eliquis. Present for years. (3) Chronic diastolic (congestive) heart failure Is this a current diagnosis for this admission?: Yes Plan: Echocardiogram (06/12/2020) shows LVEF 55 to 60% with moderate to severe LVH, LV diastolic function not assessed due to atrial fibrillation. proBNP 7180; at baseline. Mild fluid volume overload; +1, nonpitting, edema to peripheral extremities. IV fluids have been discontinued. IV furosemide x1. Continue carvedilol, clonidine, hydralazine, Procardia. Continue A. fib rate control with amiodarone. Anticoagulated on Eliquis. Home dose atorvastatin. Daily weights, strict I&O's. (4) Chronic kidney disease, stage 4 (severe) Is this a current diagnosis for this admission?: Yes Plan: GFR 22; at baseline Avoid nephrotoxic medications as able. Renally dose were appropriate. Periodic chemistries. Outpatient nephrology follow-up. (5) Diabetes mellitus Qualifiers: Diabetes mellitus type: type 2 Diabetes mellitus terminal carman insulin use: without terminal carman use Diabetes mellitus complication status: with kidney complications Diabetes mellitus complication detail: with chronic kidney disease Chronic kidney disease stage: stage 4 (severe) Qualified Code(s): E 11.22 - Type 2 diabetes mellitus with diabetic chronic kidney disease; N18.4 - Chronic kidney disease, stage 4 (severe) Is this a current diagnosis for this admission?: Yes Plan: Hemoglobin A1c(05/27/2020) 7.4%. Patient is placed on a prerenal/consistent carb diet. Accu-Cheks before meals and at bedtime with Humalog for sliding scale coverage. Continue home dose Lantus 20 units daily. Hypoglycemia protocol in place. Registered dietitian barrel repairer consulted. (6) Hypertension Qualifiers: Hypertension type: essential hypertension Qualified Code(s): I10 - Essent ial (primary) hypertension Is this a current diagnosis for this admission?: Yes Plan: Improved blood pressure control today with resumption of nifedipine. 142/74 this afternoon. Continue home dose carvedilol 25 mg twice daily, Catapres 0.2 mg transdermal patch, hydralazine 50 mg every 8 hours, and nifedipine 60 mg twice daily. Patient appears mildly volume overloaded; will provide furosemide IV 20 mg x 1 dose. Monitor for effect. Prerenal diet. (7) Hyperlipidemia Qualifiers: Hyperlipidemia type: mixed hyperlipidemia Qualified Code(s): E78.2 - Mixed hyperlipidemia Is this a current diagnosis for this admission?: Yes Plan: Continue home dose atorvastatin. (8) Expressive aphasia Is this a current diagnosis for this admission?: Yes Plan: Patient with mildly slurred speech, speech delay, and occasional word finding difficulty. No facial asymmetry or focal deficits noted. Head CT was negative. Follow-up MRI pending. Continue good blood pressure and glucose control. Continue daily statin therapy. Continue home dose Eliquis. (9) Extravasation injury Is this a current diagnosis for this admission?: Yes Plan: Occurred 06/17/2020 while infusing amiodarone to his left posterior hand; now with erythema, edema, and tenderness extending to the elbow. Venous Doppler negative for SVT or DVT. We will trial Benadryl and Solu-Medrol for inflammatory/allergic type response. Gentle compression; keep extremity elevated. - Time Time Spent with patient: 35 or more minutes Medications reviewed and adjusted accordingly: Yes Anticipated Discharge Disposition: Home, Self Care Anticipated Discharge Timeframe: within 48 hours
--- NOTE | 2020-06-18 20:29 | RADIOLOGY REPORT (SQ) ---
EXAM DESCRIPTION: MR BRAIN WITHOUT IV CONTRAST COMPLETED DATE/TME: 06/18/2020 19:34 CLINICAL HISTORY: 59 years, Male, altered mental status COMPARISON: CT head 06/12/2020 TECHNIQUE: Multisequence multiplanar images of the brain without gadolinium. Images stored on PACS. FINDINGS: Mild central and [id number] cortical atrophy. No abnormal diffusion. No acute intra-axial or extra-axial abnormalities. Suspected small old infarction left medial occipital lobe. Nonspecific nonprominent periventricular white matter hyperintensities. No suspicious hemorrhagic processes. On gradient echo images, appearance of thin right subdural prosthesis is probably artifact. Not confirmed on other sequences. IMPRESSION: 1. Diffuse paranasal sinus disease are probably related to intubation. 2. No obvious acute findings. Nonspecific chronic findings described above.
[2020-06-18] MEDS: DIPHENHYDRAMINE HCL 25 MG CAPSULE PO SCH (21:41)
[2020-06-19] MEDS: HYDRALAZINE HCL 50 MG TABLET PO SCH ×3 (03:12→17:13)
[2020-06-19 05:53] LABS: HEMATOCRIT 28.1 % (37.9-51.0); HEMOGLOBIN 9.3 g/dL (13.5-17.0); MEAN CORPUSCULAR HGB CONC 32.9 g/dL (32.0-36.0); MEAN CORPUSCULAR VOLUME 76 fl (80-97); PLATELET COUNT 326 10^3/uL (150-450); RED CELL DISTRIBUTION WIDTH 15.8 % (11.5-14.0); WHITE BLOOD COUNT 10.9 10^3/uL (4.0-10.5)
[2020-06-19 06:27] LABS: ANION GAP 10 (5-19); BLOOD UREA NITROGEN 38 mg/dL (7-20); CALCIUM 8.4 mg/dL (8.4-10.2); CARBON DIOXIDE 22 mmol/L (22-30); CHLORIDE 105 mmol/L (98-107); GLUCOSE 173 mg/dL (75-110); POTASSIUM 4.3 mmol/L (3.6-5.0)
[2020-06-19] MEDS: INSULIN REG, HUMAN 100 UNIT/ML 3 ML VIAL (PYX) SUBCUT SCH ×4 (09:01→21:26)
[2020-06-19] MEDS: APIXABAN 2.5 MG TABLET PO SCH ×2 (09:03→17:13)
[2020-06-19] MEDS: INSULIN GLARGINE,HUM.REC.ANLOG 1,000 UNIT/10 ML VIAL SUBCUT SCH (09:03)
[2020-06-19] MEDS: AMIODARONE HCL 200 MG TABLET PO SCH ×2 (09:03→21:22)
[2020-06-19] MEDS: NIFEDIPINE 30 MG TAB.ER.24 PO SCH ×2 (09:03→21:22)
[2020-06-19] MEDS: CARVEDILOL 12.5 MG TABLET PO SCH ×2 (09:03→21:22)
[2020-06-19] MEDS: CLONIDINE 0.2 MG/24 HR PATCH.TDWK TD SCH (11:58)
--- NOTE | 2020-06-19 13:11 | EKG REPORT ---
SEVERITY:- ABNORMAL ECG - ATRIAL FIBRILLATION PAIRED VENTRICULAR PREMATURE COMPLEXES ABNORMAL T, CONSIDER ISCHEMIA, LATERAL LEADS BORDERLINE PROLONGED QT INTERVAL : Confirmed by: Rudy Ordonez MD 19-Jun-2020 13:11:13
--- NOTE | 2020-06-19 19:11 | PDOC PROGRESS REPORT ---
Subjective Date:: 06/19/20 Subjective:: The patient is a 59-year-old male with a past medical history of atrial fibrillation, CHF, hypertension, CKD, recent COVID-19 illness, and obesity who was admitted to the event staff service on 06/12/2020 for post cardiac arrest. Unfortunately, information is limited regarding what occurred on scene. But per records, upon EMS arrival, [facility] had already provided 1 shock via AED. Initial rhythm for EMS was asystole. ACLS protocol was initiated for 3 minutes and after 1 dose of epinephrine and Narcan the patient achieved ROSC with alert but disoriented mental status. They patient can only recall that he felt short of breath the day that this occurred. He denies remembering chest discomfort/pain or palpitations. Patient was extubated 06/15/20. He did require a cardene gtt for BP control. During prior admission, he required a Nitro gtt for BP control. He was downgraded to the medical floor and service transitioned to the hospitalists on 06/17/20. The patient was seen on morning rounds with his significant other, Batsheva, present. He is found sitting upright to the recliner, comfortably, on supplemental oxygen via nasal cannula. He is not home O2 dependent. He is A&Ox4 today with increased clarity of speech with a normal affect/pauly. He does continue to have some short-term memory gaps, however, the patient's significant other states that he is now at his baseline mentation and personality. Patient reports that the swelling and discomfort to his left hand is significantly improved. He has no new complaints and is anxious to be discharged home. He specifically denies fever, chills, chest pain, palpitations, dyspnea, orthopnea, abdominal pain, nausea, vomiting, diarrhea. He did walk 30 feet with front wheel walker and physical therapy yesterday. He has no other questions or concerns at this time. No concerns per nursing. Reason For Visit: POST CARDIAC ARREST Physical Exam Vital Signs: Temp Pulse Resp BP Pulse Ox 97.6 F 99 16 113/59 L 99 06/19/20 15:21 06/19/20 15:21 06/19/20 15:21 06/19/20 15:21 06/19/20 15:21 Intake & Output 06/18/20 06/19/20 06/20/20 06:59 06:59 06:59 Intake Total 1211 1100 Output Total 425 1450 Balance 786 -350 Weight 117.3 kg 117.6 kg 117.6 kg General appearance: PRESENT: no acute distress, cooperative, morbidly obese, well-developed, well-nourished Head exam: PRESENT: atraumatic, normocephalic Eye exam: PRESENT: conjunctiva pink, EOMI, PERRLA. ABSENT: scleral icterus Mouth exam: PRESENT: moist, tongue midline Respiratory exam: PRESENT: clear to auscultation farooq, symmetrical, unlabored, other - Supplemental oxygen by nasal cannula. ABSENT: rales, rhonchi, wheezes Cardiovascular exam: PRESENT: RRR, +S1, +S2. ABSENT: diastolic murmur, rubs, systolic murmur Pulses: PRESENT: normal dorsalis pedis pul Vascular exam: PRESENT: normal capillary refill GI/Abdominal exam: PRESENT: normal bowel sounds, soft. ABSENT: distended, guarding, mass, organolmegaly, rebound, tenderness Rectal exam: PRESENT: deferred Extremities exam: PRESENT: full ROM, +1 edema - Left posterior hand and forearm. ABSENT: calf tenderness, clubbing, pedal edema - Resolved Musculoskeletal exam: PRESENT: ambulatory - With front wheel walker Neurological exam: PRESENT: alert, awake, oriented to person, oriented to place, oriented to time, oriented to situation, CN II-XII grossly intact. ABSENT: motor sensory deficit Psychiatric exam: PRESENT: appropriate affect, normal mood. ABSENT: homicidal ideation, suicidal ideation Skin exam: PRESENT: dry, intact, warm. ABSENT: cyanosis, rash Results Laboratory Results: 06/19/20 05:01 06/19/20 05:01 06/19/20 06/19/20 05:01 05:01 WBC 10.9 H RBC 3.70 L Hgb 9.3 L Hct 28.1 L MCV 76 L MCH 25.0 L MCHC 32.9 RDW 15.8 H Plt Count 326 Sodium 137.3 Potassium 4.3 Chloride 105 Carbon Dioxide 22 Anion Gap 10 BUN 38 H Creatinine 3.22 H Est GFR ( Amer) 24 L Glucose 173 H Calcium 8.4 06/12/20 06/12/20 06/12/20 00:23 00:23 11:15 Creatine Kinase 111 Troponin I 0.035 Cancelled NT-Pro-B Natriuret Pep 6230 H 06/12/20 06/14/20 15:23 04:19 Creatine Kinase Troponin I 0.108 NT-Pro-B Natriuret Pep 7180 H Impressions: Head CT 06/12/20 00:13 IMPRESSION: Questionable age indeterminate lacunar infarct in the medial left occipital lobe. Could consider further assessment with dedicated MRI. Opacification of the ethmoid air cells and nasal passages with endotracheal and enteric tubes in place TECHNICAL DOCUMENTATION: Quality ID # [id number]: Final reports with documentation of one or more dose reduction techniques (e.g., Automated exposure control, adjustment of the mA and/or kV according to patient size, use of iterative reconstruction technique) copyright 2011 [employer]- All Rights Reserved Lung Scan-VQ NM 06/12/20 03:13 IMPRESSION: Low probability for pulmonary embolus. Chest X-Ray 06/14/20 00:00 IMPRESSION: 1. Improved pulmonary exam with persistent left lower lobe consolidation. 2. Stable lines and tubes. Head MRI 06/18/20 00:00 IMPRESSION: 1. Diffuse paranasal sinus disease are probably related to intubation. 2. No obvious acute findings. Nonspecific chronic findings described above. Venous Doppler Study 06/18/20 00:00 IMPRESSION: NO EVIDENCE DVT OR SVT LEFT ARM. Assessment and Plan - Diagnosis (1) Cardiac arrest Is this a current diagnosis for this admission?: Yes Plan: Happened at home. Pt has no recollection of events. Remembers shortness of breath today. Denies recent chest discomfort or palpitations. Intubated 06/12/20 - 06/15/20 Per EMS; received AED shock x 1, 1 mg epi, 1 dose Narcan, and 3 min total ACLS protocol. Discussed with Dr. Crystal; have placed consult. Dr. Crystal plans for stress testing prior to discharge. (2) Chronic atrial fibrillation Is this a current diagnosis for this admission?: Yes Plan: Chronic a fib. Now on PO amiodarone. Continue Eliquis. Cardiology is consulted. (3) Chronic diastolic (congestive) heart failure Is this a current diagnosis for this admission?: Yes Plan: Echocardiogram (06/12/2020) shows LVEF 55 to 60% with moderate to severe LVH, LV diastolic function not assessed due to atrial fibrillation. proBNP 7180; at baseline. Mild fluid volume overload; +1, nonpitting, edema to peripheral extremities. IV fluids have been discontinued. Now euvolemic following IV furosemide x 1 yesterday. Cardiology is consulted. Continue carvedilol, clonidine, hydralazine, Procardia. Continue A. fib rate control with amiodarone. Anticoagulated on Eliquis. Home dose atorvastatin. Daily weights, strict I&O's. (4) Chronic kidney disease, stage 4 (severe) Is this a current diagnosis for this admission?: Yes Plan: GFR 22; at baseline Avoid nephrotoxic medications as able. Renally dose were appropriate. Periodic chemistries. Outpatient nephrology follow-up. (5) Diabetes mellitus Qualifiers: Diabetes mellitus type: type 2 Diabetes mellitus chcf insulin use: without ad terminal makeup operator use Diabetes mellitus complication status: with kidney complications Diabetes mellitus complication detail: with chronic kidney disease Chronic kidney disease stage: stage 4 (severe) Qualified Code(s): E11.22 - Type 2 diabetes mellitus with diabetic chronic kidney disease; N18.4 - Chronic kidney disease, stage 4 (severe) Is this a current diagnosis for this admission?: Yes Plan: Hemoglobin A1c(05/27/2020) 7.4%. Patient is placed on a prerenal/consistent carb diet. Accu-Cheks before meals and at bedtime with Humalog for sliding scale coverage. Continue home dose Lantus 20 units daily. Hypoglycemia protocol in place. Registered dietitian agricultural extension educator consulted. (6) Hypertension Qualifiers: Hypertension type: essential hypertension Qualified Code(s): I10 - Essential (primary) hypertension Is this a current diagnosis for this admission?: Yes Plan: Acceptable blood pressures today; 113/59 Continue home dose carvedilol 25 mg twice daily, Catapres 0.2 mg transdermal patch, hydralazine 50 mg every 8 hours, and nifedipine 60 mg twice daily. Prerenal diet. (7) Hyperlipidemia Qualifiers: Hyperlipidemia type: mixed hyperlipidemia Qualified Code(s): E78.2 - Mixed hyperlipidemia Is this a current diagnosis for this admission?: Yes Plan: Continue home dose atorvastatin. (8) Expressive aphasia Is this a current diagnosis for this admission?: Yes Plan: Resolved Patient had mildly slurred speech, speech delay, and occasional word finding difficulty. No facial asymmetry or focal deficits noted. Head CT was negative. Follow-up MRI negative for acute findings. Continue good blood pressure and glucose control. Continue daily statin therapy. Continue home dose Eliquis. (9) Extravasation injury Is this a current diagnosis for this admission?: Yes Plan: Improved. Occurred 06/17/2020 while infusing amiodarone to his left posterior hand; now with erythema, edema, and tenderness extending to the elbow. Venous Doppler negative for SVT or DVT. Good results with Benadryl and Solu-Medrol for inflammatory/allergic type response. Gentle compression; keep extremity elevated. - Time Time Spent with patient: 35 or more minutes Medications reviewed and adjusted accordingly: Yes Anticipated Discharge Disposition: Home with Home Health Anticipated Discharge Timeframe: within 24 hours - pending stress test results
[2020-06-19] MEDS: DIPHENHYDRAMINE HCL 25 MG CAPSULE PO SCH (21:22)
[2020-06-19] MEDS ORDERED: ATORVASTATIN CALCIUM 20 MG TABLET PO SCH (22:00)
--- NOTE | 2020-06-19 23:28 | PDOC CONSULTATION ---
Consultation-Blank Consultation: CARDIOLOGY CONSULTATION by Dr. Rimma Ly on 06/19/2020. Patient seen at 5 PM. Since 60 minutes spent as patient more than 50% time spent in direct patient care. Also REASON FOR CONSULTATION: Patient with admitted with cardio respiratory arrest for further cardiac work-up. CONSULT REQUESTING PHYSICIAN: Porsche Latif, Nurse Practitioner, [facility]. HISTORY OF PRESENT ILLNESS: Patient well-known to me he is a 59-year-old Afro- Burmese male with known history of hypertension, persistent atrial fibrillation, hypertension, diabetes mellitus, and chronic kidney disease stage III who was admitted on 06/12/2020 after respiratory arrest which led to cardiac arrest. The patient had complained of shortness of breath and was obtunded and was found by the fire fire department rescue squad to be pulseless and the patient got a shock delivered. When the EMT went there he was pulseless and he was CPR was continued and he was given intravenous epinephrine and the patient had spontaneously return of circulation. Although his sats were 100% post with risks/sedation the patient again became obtunded and had to be intubated. The patient subsequently was intubated in the ICU and subsequently discharged from the ICU. The patient recently had Covid19 virus infection with pneumonia for which she was admitted several times. The patient at present denies chest pain or discomfort. He has dyspnea on exertion with moderate exertion. He denies any palpitations or rapid beating of the heart. There is no TIA CVA symptoms. There is no bleeding on Eliquis. The patient has multiple coronary artery disease risk factors and hence would recommend that the patient have a IV Lexiscan Cardiolite stress test this admission prior to him being discharged. The patient's recent echocardiogram showed normal LV left and ejection fraction, of 55% to 60%, with no wall motion 20. There is moderate to severe concentric LVH. There is no significant valvular lesions. The TR jet is insufficient to assess right ventricle systolic pressure. There is no aortic stenosis or aortic regurgitation. There is no significant mitral regurgitation. This echo was done on 06/12/2020. Past Medical History Cardiac Medical History: Reports: Atrial Fibrillation, Congestive Heart Failure, Hyperlipidema, Hypertension Pulmonary Medical History: Reports: Sleep Apnea - Patient underwent an incomplete sleep study at [facility] recently. Denies: Tuberculosis. History of Covid19 related pneumonia. Patient has been treated at least twice this admission for this. This is the third admission secondary to respiratory arrest. Endocrine Medical History: Reports: Diabetes Mellitus Type 2 Renal/ Medical History: Reports: Chronic Kidney Disease Psychiatric Medical History: Denies: Depression Past Surgical History Past Surgical History: Denies: Appendectomy, Cholecystectomy, Coronary Artery Bypass Graft, Gastric Bypass Surgery, Herniorrhaphy, Internal Defibrillator, Pacemaker, Tonsillectomy, Valve Replacement, Vascular Surgery Social History Lives with: Family Smoking Status: Never Smoker Frequency of Alcohol Use: None Hx Recreational Drug Use: No Drugs: None Hx Prescription Drug Abuse: No - Advance Directive Resuscitation Status: Full Code Family History Family History: Hypertension Parental Family History Reviewed: Yes Children Family History Reviewed: Yes Sibling(s) Family History Reviewed.: Yes Medication/Allergies Home Medications: Carvedilol [Coreg 12.5 mg Tablet] 25 mg PO Q12 10/04/19 Atorvastatin Calcium [Lipitor 20 mg Tablet] 20 mg PO QHS 05/17/20 Clonidine [Catapres-Tts 2 (0.2 mg/24 Hr) Transderm Ptch] 1 patch TOP TU@1000 05/17/20 Nifedipine [Nifedipine ER] 90 mg PO DAILY 05/26/20 Potassium Chloride 10 meq PO DAILY 05/26/20 Apixaban [Eliquis 5 mg Tablet] 5 mg PO Q12 #30 tablet 05/27/20 Insulin Glargine,Hum.rec.anlog [Lantus Insulin 100 Unit/1 ml 10 ml] 20 units SUBCUT DAILY 05/27/20 Allergies/Adverse Reactions: RESUSCITATION Status: The patient is a full code. His significant other is a surrogate healthcare decision maker [Ms. Batsheva Lyman.} REVIEW OF SYSTEMS: CONSTITUTIONAL: No fever chills or rigors. Complains of generalized fatigue and weakness. HEAD: Denies headaches or head injury. EYES: No history of appropriate diplopia. No history of amaurosis fugax. EARS: No history of tinnitus. No history of hearing loss. NOSE: No history of hayfever. No severe nosebleeds. MOUTH: No history of altered taste sensation. No ulcers in the mouth. THROAT: No odynophagia or dysphagia. No recurrent sore throats. SKIN: There is no skin rashes. There is no pruritus. There is no yellowish discoloration of skin. NECK: Denies neck pain or neck swelling. LUNGS: Does have dyspnea on exertion. No wheezing. Denies cough. Patient had respiratory respiratory intracardiac arrest. HE HAS A HISTORY OF COPD. Heart: History of chronic atrial fibrillation. No history of HI. No history of PND orthopnea or leg edema. RENAL: History of chronic kidney disease stage III. No history of hematuria pyuria or dysuria. ENDOCRINE: History of diabetes mellitus insulin requiring. No history of polydipsia polyuria. No history of heat or cold intolerance. No history of thyroid disease. No history of heat or cold intolerance. NATURALIZATION EXAMINER: No history of TIA CVA. No history of headaches migraines or seizures. PSYCHIATRIC: Denies anxiety or depression. Current Medications Generic Name Dose Route Start Last Admin Trade Name Freq PRN Reason Stop Dose Admin Acetaminophen 650 mg 06/18/20 14:53 Acetaminophen 325 Mg Tablet PO 07/18/20 14:52 Q6HP PRN FEVER >101 Amiodarone HCl 400 mg 06/17/20 13:00 06/19/20 21:22 Amiodarone Hcl 200 Mg Tablet PO 07/17/20 12:59 400 mg Q12 ATUL Administration Apixaban 2.5 mg 06/12/20 10:00 06/19/20 17:13 Apixaban 2.5 Mg Tablet PO 07/12/20 09:59 2.5 mg BID ATUL Administration Atorvastatin Calcium 20 mg 06/19/20 22:00 06/19/20 21:22 Atorvastatin Calcium 20 Mg Tablet PO 07/19/20 21:59 20 mg QHS ATUL Administration Carvedilol 25 mg 06/12/20 10:00 06/19/20 21:22 Carvedilol 12.5 Mg Tablet PO 07/12/20 09:59 25 mg Q12 ATUL Administration Clonidine HCl 1 each 06/12/20 10:00 06/19/20 11:58 Clonidine 0.2 Mg/24 Hr Patch.Tdwk TD 07/12/20 09:59 1 each Tu@10 ATLU Administration Dextrose 12.5 gm 06/12/20 11:19 06/13/20 09:36 Dextrose 50%-Water 25 Gm/50 Ml Disp.Syrin IV 07/12/20 11:18 12.5 gm PRN PRN Administration FOR BG 50-69 IN ALERT PATIENT Protocol Dextrose 25 gm 06/12/20 11:19 Dextrose 50%-Water 25 Gm/50 Ml Disp.Syrin IV 07/12/20 11:18 PRN PRN PER PROTOCOL Protocol Diphenhydramine HCl 25 mg 06/18/20 22:00 06/19/20 21:22 Diphenhydramine Hcl 25 Mg Capsule PO 07/18/20 21:59 25 mg QHS ATUL Administration Glucagon 1 mg 06/12/20 11:19 Glucagon,Human Recomb 1 Mg Inj IM 07/12/20 11:18 PRN PRN Evaluate for BG < 70 Protocol Glucose 15 gm 06/12/20 11:19 Dextrose 40% Gel 15 Gm Tube PO 07/12/20 11:18 PRN PRN FOR BG 50-69 IN ALERT PATIENT Protocol Glucose 30 gm 06/12/20 11:19 Dextrose 40% Gel 15 Gm Tube PO 07/12/20 11:18 PRN PRN FOR BG < 50 IN ALERT PATIENT Protocol Hydralazine HCl 50 mg 06/17/20 02:00 06/19/20 17:13 Hydralazine Hcl 50 Mg Tablet PO 07/17/20 01:59 50 mg Q8A ATUL Administration Hydromorphone HCl 1 mg 06/13/20 18:11 06/15/20 14:09 Hydromorphone Hcl Inj/Pf 2 Mg/Ml Ampule IV 06/20/20 18:10 1 mg Q4HP PRN Administration PAIN 3-5 Insulin Glargine 20 unit 06/12/20 10:00 06/19/20 09:03 Insulin Glargine,Hum.Rec.Anlog 1,000 Unit/10 Ml Vial SUBCUT 07/12/20 09:59 20 unit DAILY ATUL Administration Insulin Human Regular 0 - 12 unit 06/18/20 08:00 06/19/20 21:26 Insulin Reg, Human 100 Unit/Ml 3 Ml Vial (Pyx) SUBCUT 07/18/20 07:59 4 unit ACHS ATUL Administration Protocol Metoprolol Tartrate 5 mg 06/16/20 01:36 06/18/20 05:53 Metoprolol Tartrate Pf/Inj 5 Mg/5 Ml Sdv IV 07/16/20 01:35 5 mg Q4HP PRN Administration SBP > 160 Nifedipine 60 mg 06/18/20 09:00 06/19/20 21:22 Nifedipine 30 Mg Tab.Er.24 PO 07/18/20 08:59 60 mg Q12 ATUL Administration Sodium Chloride 2.5 ml 06/12/20 06:00 06/19/20 21:26 Normal Saline Flush 2.5 Ml Disp.Syrin IV 07/12/20 05:59 2.5 ml Q8 ATUL Administration Discontinued Medications Generic Name Dose Route Start Last Admin Trade Name Freq PRN Reason Stop Dose Admin Acetaminophen 650 mg 06/12/20 20:15 06/16/20 14:39 Acetaminophen 325 Mg Tablet PO 07/12/20 20:14 650 mg Q4HP PRN Administration FEVER >101 Amino Acid Protein 90 ml 06/13/20 22:00 06/17/20 10:22 Amino Ac/Protein Hydr/Whey Pro 11 Gm/45 Ml Pkt NG 07/13/20 21:59 Not Given BID ATUL Amiodarone HCl Confirm 06/14/20 06:30 06/14/20 06:50 Amiodarone Hcl Inj 150 Mg/3 Ml Vial Administered 06/14/20 06:31 Not Given Dose 150 mg IV .STK-MED ONE Amiodarone HCl Confirm 06/14/20 06:33 06/14/20 06:50 Amiodarone Hcl Inj 150 Mg/3 Ml Vial Administered 06/14/20 06:34 Not Given Dose 150 mg IV .STK-MED ONE Apixaban 2.5 mg 06/12/20 10:00 Apixaban 2.5 Mg Tablet PO 07/12/20 09:59 BID ATUL Atorvastatin Calcium 20 mg 06/12/20 10:00 06/18/20 09:31 Atorvastatin Calcium 40 Mg Tablet PO 07/12/20 09:59 20 mg DAILY ATUL Administration Enoxaparin Sodium 121 mg 06/12/20 03:25 06/12/20 04:54 Enoxaparin Sodium Inj 150 Mg/1 Ml Disp.Syrin SUBCUT 06/12/20 03:26 121 mg NOW ONE Administration Enoxaparin Sodium 125 mg 06/13/20 00:00 Enoxaparin Sodium Inj 150 Mg/1 Ml Disp.Syrin SUBCUT 07/13/20 00:00 Q24H ATUL Etomidate 25 mg 06/12/20 00:14 06/12/20 00:05 Etomidate Inj/Pf 20 Mg/10 Ml Sdv IV 06/12/20 00:15 25 mg NOW ONE Administration Etomidate 40 mg 06/12/20 15:08 Etomidate Inj/Pf 20 Mg/10 Ml Sdv IV 06/12/20 15:09 .STK-MED ONE Furosemide 100 mg 06/12/20 01:30 06/12/20 02:16 Furosemide Inj/Pf 100 Mg/10 Ml Sdv IV 06/12/20 01:31 100 mg NOW ONE Administration Furosemide 20 mg 06/18/20 19:29 06/18/20 21:40 Furosemide Inj/Pf 20 Mg/2 Ml Sdv IV 06/18/20 19:30 Not Given NOW ONE Furosemide 20 mg 06/18/20 21:30 06/18/20 21:44 Furosemide Inj/Pf 20 Mg/2 Ml Sdv IV 06/18/20 21:31 20 mg NOW ONE Administration Hydralazine HCl 20 mg 06/15/20 03:05 Hydralazine Hcl Inj/Pf 20 Mg/1 Ml Sdv IV 07/15/20 03:04 Q3HP PRN SBP > 160 Hydralazine HCl 50 mg 06/16/20 19:45 06/16/20 22:29 Hydralazine Hcl 50 Mg Tablet PO 07/16/20 19:44 Not Given Q8 ATUL Propofol 1,000 mg in 100 mls @ 3.63 mls/hr 06/12/20 00:15 06/12/20 04:35 Diprivan Rtu 1000 Mg/100 Ml Inf.Bottle IV 07/12/20 00:14 Infused CONTINUOUS PRN Titration THIS MED IS NOT "PRN" Protocol 5 MCG/KG/MIN Nitroglycerin/Dextrose 50 mg in 250 mls @ 0 mls/hr 06/12/20 01:32 06/12/20 09:03 Ntg Rtu 50 Mg/D5w 250 Ml Iv Premix Bottle IV 07/12/20 01:31 0 mcg/hr CONTINUOUS PRN 0 mls/hr THIS MED IS NOT "PRN" Titration Protocol Titrate Propofol 1,000 mg in 100 mls @ 3.63 mls/hr 06/12/20 01:54 06/14/20 19:30 Diprivan Rtu 1000 Mg/100 Ml Inf.Bottle IV 07/12/20 01:53 Infused CONTINUOUS PRN Titration THIS MED IS NOT "PRN" Protocol 5 MCG/KG/MIN Sodium Chloride 1,000 mls @ 150 mls/hr 06/12/20 09:04 06/12/20 21:23 Nacl 0.9% 1000 Ml Iv Soln IV 07/12/20 09:03 0 mls/hr CONTINUOUS PRN Infusion THIS MED IS NOT "PRN" Amiodarone HCl 150 mg/ 100 mls @ 600 mls/hr 06/14/20 06:31 06/14/20 06:36 Dextrose IV 06/14/20 06:40 600 mls/hr NOW ONE Administration Protocol Amiodarone HCl 900 mg/ 500 mls @ 0 mls/hr 06/14/20 06:31 06/17/20 13:32 Dextrose IV 06/17/20 06:30 Infused CONTINUOUS PRN Titration THIS MED IS NOT "PRN" Protocol Per Protocol Albumin Human 500 mls @ 4 mls/min 06/14/20 20:30 06/14/20 22:26 Albutein 5% Inj 25 Gm/500 Ml Premixed Bottle IV 06/14/20 22:34 4 mls/min NOW ONE Administration Potassium Chloride/Water 20 meq in 50 mls @ 25 mls/hr 06/15/20 14:15 06/15/20 17:00 Potassium Chloride [place] 20 Meq/50 Ml IV 06/15/20 18:14 25 mls/hr Q2H ATUL 25 mls/hr Administration Nicardipine HCl 20 mg in 200 mls @ 50 mls/hr 06/16/20 04:56 06/17/20 13:32 Cardene 20 Mg/200 Ml Premix Bag IV 07/16/20 04:55 Infused CONTINUOUS PRN Infusion THIS MED IS NOT "PRN" Nicardipine HCl Confirm 06/16/20 05:09 06/16/20 05:21 Cardene 20 Mg/200 Ml Premix Bag Administered 06/16/20 05:10 Not Given Dose 20 mg in 200 mls @ ud IV .STK-MED ONE Amiodarone HCl 900 mg/ 500 mls @ 0 mls/hr 06/17/20 08:31 06/17/20 13:33 Dextrose IV 06/20/20 08:30 Infused CONTINUOUS PRN Titration THIS MED IS NOT "PRN" Protocol Per Protocol Potassium Chloride/Water 20 meq in 50 mls @ 25 mls/hr 06/17/20 23:00 06/18/20 01:22 Potassium Chloride [place] 20 Meq/50 Ml IV 06/18/20 02:59 25 mls/hr Q2H ATUL 25 mls/hr Administration Insulin Human Regular 0 - 12 unit 06/12/20 12:00 06/18/20 01:32 Insulin Reg, Human 100 Unit/Ml 3 Ml Vial (Pyx) SUBCUT 07/12/20 11:59 Not Given Q6 ATUL Protocol Labetalol HCl 10 mg 06/18/20 03:45 06/18/20 03:54 Labetalol Hcl Inj 20 Mg/4 Ml Disp.Syrin IV 06/18/20 03:46 10 mg NOW ONE Administration Lorazepam 2 mg 06/18/20 18:29 06/18/20 19:17 Lorazepam Inj 2 Mg/1 Ml Vial IV 06/18/20 18:30 Not Given NOW ONE Lorazepam Confirm 06/18/20 18:30 06/18/20 18:35 Lorazepam Inj 2 Mg/1 Ml Vial Administered 06/18/20 18:31 2 mg Dose Administration 2 mg .ROUTE .STK-MED ONE Methylprednisolone Sodium Succinate 40 mg 06/18/20 19:07 06/18/20 21:40 Methylprednisolone Inj 40 Mg/1 Ml Sdv IV 06/18/20 19:08 Not Given NOW ONE Methylprednisolone Sodium Succinate 40 mg 06/18/20 21:30 06/18/20 21:44 Methylprednisolone Inj 40 Mg/1 Ml Sdv IV 06/18/20 21:31 40 mg NOW ONE Administration Metoprolol Tartrate 5 mg 06/12/20 20:17 06/15/20 21:11 Metoprolol Tartrate Pf/Inj 5 Mg/5 Ml Sdv IV 07/12/20 20:16 5 mg Q6HP PRN Administration SBP > 160 Naloxone HCl Confirm 06/11/20 23:50 06/11/20 23:54 Naloxone Hcl Inj 2 Mg/2 Ml Disp.Syrin Administered 06/11/20 23:51 2 mg Dose Administration 2 mg .ROUTE .STK-MED ONE Pantoprazole Sodium 40 mg 06/12/20 22:00 06/17/20 09:18 Pantoprazole Sodium 40 Mg Vial IV 06/19/20 21:59 40 mg Q12 ATUL Administration Potassium Chloride 20 meq 06/12/20 23:40 06/13/20 00:19 Potassium Chloride 20 Meq Packet PO 06/12/20 23:41 20 meq NOW ONE Administration Potassium Chloride 40 meq 06/18/20 09:00 06/18/20 09:30 Potassium Chloride 10 Meq Tablet.Er PO 06/18/20 09:01 40 meq NOW ONE Administration Propofol 60 mg 06/12/20 01:32 06/12/20 01:37 Propofol Inj 200 Mg/20 Ml Vial IV 06/12/20 01:33 60 mg NOW ONE Administration Propofol 60 mg 06/12/20 04:34 06/12/20 04:40 Propofol Inj 200 Mg/20 Ml Vial IV 06/12/20 04:35 60 mg NOW ONE Administration Vecuronium [place] 12 mg 06/12/20 00:14 06/12/20 00:06 Vecuronium [place] Inj 10 Mg Vial IV 06/12/20 00:15 12 mg NOW ONE Administration Vecuronium [place] 20 mg 06/12/20 15:08 Vecuronium [place] Inj 10 Mg Vial IV 06/12/20 15:09 .[facility]-MED ONE PHYSICAL EXAMINATION: The patient is morbidly obese. At present in no acute distress. Selected Entries 06/18/20 16:12 Temperature 97.8 F Temperature Oral Source Pulse Rate 83 Respiratory 18 Rate Blood Pressure 142/74 H Blood Pressure 96 Mean BP Location Right Arm BP Position Supine O2 Sat by Pulse 96 Oximetry Oxygen Flow 3.50 Rate Oxygen Delivery Nasal Cannula Method Head: Is atraumatic normocephalic. EYES: Pupils are equal round regular reactive light accommodation. Extraocular movements are normal. There is no conjunctival pallor. There is no scleral icterus. EARS: Tympanic memories are intact. External auditory canals are clear. NOSE: There is no deviated nasal septum. There is no inflammation of the nasal mucous membrane. MOUTH: Mucous membranes of the mouth are moist. Tongue is moist. THROAT: There is no redness of the oropharynx. There is no exudates. SKIN: There is no skin rashes or skin lesions. There is no petechia or ecchymosis. NECK: Supple. There is no JVD. Carotids are equal there is no bruit. There is no lymphadenopathy. There is no goiter. There is no accessory muscle respiration use. Trachea central. LUNGS: There is diminished air entry prolonged expiration. Lungs are without rhonchi rales or wheezing. There is dry crackles right base and right mid zone greater than left base. There is no rales of CHF. HEART: S1-S2 is heard. S1 is of variable intensity. There is no S3 gallop. There is no S4 gallop. There is systolic murmur in the left sternal border and the apex there is no rub. ABDOMEN: Is soft. Nontender. There is no hepatosplenomegaly. Bowel sounds are well heard. There is no tender areas masses. EXTREMITIES: Femorals are diminished. There is no femoral bruits. Leg pulses are diminished. There is trace pedal edema. There is no DVT or cellulitis. There is no calf tenderness. NATURALIZATION EXAMINER: The patient is conscious awake oriented x3 with no focal deficits. PSYCHIATRIC:. Patient judgment insight are intact his affect is normal. EKG: Shows atrial fibrillation. Anterolateral T inversion in the initial EKG probably ischemia. The second EKG done today shows atrial fibrillation with controlled ventricular response lateral T inversion cannot exclude ischemia. Labs- Entire Visit 06/12/20 06/12/20 06/12/20 00:23 00:23 00:23 WBC 5.8 RBC 4.27 L Hgb 10.8 L Hct 33.7 L MCV 79 L MCH 25.4 L MCHC 32.1 RDW 16.2 H Plt Count 283 Lymph % (Auto) 20.3 [place] % (Auto) 6.8 Eos % (Auto) 6.2 H Baso % (Auto) 0.9 Absolute Neuts (auto) 3.8 Absolute Lymphs (auto) 1.2 Absolute Monos (auto) 0.4 Absolute Eos (auto) 0.4 Absolute Basos (auto) 0.1 Seg Neutrophils % 65.8 PT INR APTT D-Dimer Carbonic Acid HCO3/H2CO3 Ratio ABG pH ABG pCO2 ABG pO2 ABG HCO3 ABG Total CO2 ABG O2 Saturation ABG Base Excess VBG pH VBG pCO2 VBG HCO3 VBG Base Excess FiO2 Sodium 135.8 L Potassium 3.9 Chloride 103 Carbon Dioxide 22 Anion Gap 11 BUN 23 H Creatinine 2.96 H Est GFR ( Amer) 27 L Est GFR (Non-Af Amer) Est GFR (MDRD) Non-Af 22 L Glucose 291 H POC Glucose Lactic Acid Calcium 8.5 Phosphorus 5.2 H Magnesium 2.0 Total Bilirubin 1.1 Direct Bilirubin 0.2 Neonat Total Bilirubin Not Reportable Neonat Direct Bilirubin Not Reportable Neonat Indirect Bili Not Reportable AST 50 ALT 32 Alkaline Phosphatase 66 Creatine Kinase 111 Troponin I 0.035 NT-Pro-B Natriuret Pep 6230 H Total Protein 6.3 Albumin 3.1 L Triglycerides EGFR Urine Color Urine Appearance Urine pH Ur Specific [place] Urine Protein Urine Glucose (UA) Urine Ketones Urine Blood Urine Nitrite (Reflex) Urine Bilirubin Urine Urobilinogen Leukocyte Esterase Rfl Urine RBC (Auto) U Hyaline Cast (Auto) Urine Bacteria (Auto) Urine WBC (Reflex) Urine Mucus (Auto) Urine Ascorbic Acid Salicylates < 1.0 L Urine Opiates Screen Urine Methadone Screen Acetaminophen < 10 L Ur Barbiturates Screen Ur Phencyclidine Scrn Ur Amphetamines Screen U Benzodiazepines Scrn Urine Cocaine Screen U Marijuana (THC) Screen Serum Alcohol < 10 Influenza A (RT-PCR) Influenza B (RT-PCR) RSV (RT-PCR) SARS-CoV-2 Rap RNA(RT-PCR) 06/12/20 06/12/20 06/12/20 00:23 00:23 00:23 WBC RBC Hgb Hct MCV MCH MCHC RDW Plt Count Lymph % (Auto) [place] % (Auto) Eos % (Auto) Baso % (Auto) Absolute Neuts (auto) Absolute Lymphs (auto) Absolute Monos (auto) Absolute Eos (auto) Absolute Basos (auto) Seg Neutrophils % PT 15.5 H INR 1.21 APTT 26.0 D-Dimer 3.76 H Carbonic Acid HCO3/H2CO3 Ratio ABG pH ABG pCO2 ABG pO2 ABG HCO3 ABG Total CO2 ABG O2 Saturation ABG Base Excess VBG pH VBG pCO2 VBG HCO3 VBG Base Excess FiO2 Sodium Potassium Chloride Carbon Dioxide Anion Gap BUN Creatinine Est GFR ( Amer) Est GFR (Non-Af Amer) Est GFR (MDRD) Non-Af Glucose POC Glucose Lactic Acid 3.7 H Calcium Phosphorus Magnesium Total Bilirubin Direct Bilirubin Neonat Total Bilirubin Neonat Direct Bilirubin Neonat Indirect Bili AST ALT Alkaline Phosphatase Creatine Kinase Troponin I NT-Pro-B Natriuret Pep Total Protein Albumin Triglycerides EGFR Urine Color Urine Appearance Urine pH Ur Specific [place] Urine Protein Urine Glucose (UA) Urine Ketones Urine Blood Urine Nitrite (Reflex) Urine Bilirubin Urine Urobilinogen Leukocyte Esterase Rfl Urine RBC (Auto) U Hyaline Cast (Auto) Urine Bacteria (Auto) Urine WBC (Reflex) Urine Mucus (Auto) Urine Ascorbic Acid Salicylates Urine Opiates Screen Urine Methadone Screen Acetaminophen Ur Barbiturates Screen Ur Phencyclidine Scrn Ur Amphetamines Screen U Benzodiazepines Scrn Urine Cocaine Screen U Marijuana (THC) Screen Serum Alcohol Influenza A (RT-PCR) Influenza B (RT-PCR) RSV (RT-PCR) SARS-CoV-2 Rap RNA(RT-PCR) 06/12/20 06/12/20 06/12/20 00:58 01:25 03:15 WBC RBC Hgb Hct MCV MCH MCHC RDW Plt Count Lymph % (Auto) [place] % (Auto) Eos % (Auto) Baso % (Auto) Absolute Neuts (auto) Absolute Lymphs (auto) Absolute Monos (auto) Absolute Eos (auto) Absolute Basos (auto) Seg Neutrophils % PT INR APTT D-Dimer Carbonic Acid HCO3/H2CO3 Ratio ABG pH ABG pCO2 ABG pO2 ABG HCO3 ABG Total CO2 ABG O2 Saturation ABG Base Excess VBG pH 7.36 VBG pCO2 45.8 VBG HCO3 25.5 VBG Base Excess -0.3 FiO2 Sodium Potassium Chloride Carbon Dioxide Anion Gap BUN Creatinine Est GFR ( Amer) Est GFR (Non-Af Amer) Est GFR (MDRD) Non-Af Glucose POC Glucose Lactic Acid Calcium Phosphorus Magnesium Total Bilirubin Direct Bilirubin Neonat Total Bilirubin Neonat Direct Bilirubin Neonat Indirect Bili AST ALT Alkaline Phosphatase Creatine Kinase Troponin I NT-Pro-B Natriuret Pep Total Protein Albumin Triglycerides EGFR Urine Color YELLOW Urine Appearance CLOUDY Urine pH 7.0 Ur Specific [place] 1.014 Urine Protein >=500 H Urine Glucose (UA) >=500 H Urine Ketones NEGATIVE Urine Blood MODERATE H Urine Nitrite (Reflex) NEGATIVE Urine Bilirubin NEGATIVE Urine Urobilinogen NEGATIVE Leukocyte Esterase Rfl NEGATIVE Urine RBC (Auto) >182 U Hyaline Cast (Auto) 1 Urine Bacteria (Auto) TRACE Urine WBC (Reflex) 31 Urine Mucus (Auto) RARE Urine Ascorbic Acid NEGATIVE Salicylates Urine Opiates Screen Urine Methadone Screen Acetaminophen Ur Barbiturates Screen Ur Phencyclidine Scrn Ur Amphetamines Screen U Benzodiazepines Scrn Urine Cocaine Screen U Marijuana (THC) Screen Serum Alcohol Influenza A (RT-PCR) NEGATIVE Influenza B (RT-PCR) NEGATIVE RSV (RT-PCR) NEGATIVE SARS-CoV-2 Rap RNA(RT-PCR) NEGATIVE 1206/12/20 06/12/20 03:15 06:26 06:26 WBC RBC Hgb Hct MCV MCH MCHC RDW Plt Count Lymph % (Auto) [place] % (Auto) Eos % (Auto) Baso % (Auto) Absolute Neuts (auto) Absolute Lymphs (auto) Absolute Monos (auto) Absolute Eos (auto) Absolute Basos (auto) Seg Neutrophils % PT INR APTT D-Dimer Carbonic Acid HCO3/H2CO3 Ratio ABG pH ABG pCO2 ABG pO2 ABG HCO3 ABG Total CO2 ABG O2 Saturation ABG Base Excess VBG pH 7.36 VBG pCO2 44.7 VBG HCO3 24.7 VBG Base Excess -0.9 FiO2 Sodium Potassium Chloride Carbon Dioxide Anion Gap BUN Creatinine Est GFR ( Amer) Est GFR (Non-Af Amer) Est GFR (MDRD) Non-Af Glucose POC Glucose Lactic Acid 2.1 Calcium Phosphorus Magnesium Total Bilirubin Direct Bilirubin Neonat Total Bilirubin Neonat Direct Bilirubin Neonat Indirect Bili AST ALT Alkaline Phosphatase Creatine Kinase Troponin I NT-Pro-B Natriuret Pep Total Protein Albumin Triglycerides EGFR Urine Color Urine Appearance Urine pH Ur Specific [place] Urine Protein Urine Glucose (UA) Urine Ketones Urine Blood Urine Nitrite (Reflex) Urine Bilirubin Urine Urobilinogen Leukocyte Esterase Rfl Urine RBC (Auto) U Hyaline Cast (Auto) Urine Bacteria (Auto) Urine WBC (Reflex) Urine Mucus (Auto) Urine Ascorbic Acid Salicylates Urine Opiates Screen NEGATIVE Urine Methadone Screen NEGATIVE Acetaminophen Ur Barbiturates Screen NEGATIVE Ur Phencyclidine Scrn NEGATIVE Ur Amphetamines Screen NEGATIVE U Benzodiazepines Scrn NEGATIVE Urine Cocaine Screen NEGATIVE U Marijuana (THC) Screen NEGATIVE Serum Alcohol Influenza A (RT-PCR) Influenza B (RT-PCR) RSV (RT-PCR) SARS-CoV-2 Rap RNA(RT-PCR) 06/12/20 06/12/20 06/12/20 11:14 11:15 11:15 WBC RBC Hgb Hct MCV MCH MCHC RDW Plt Count Lymph % (Auto) [place] % (Auto) Eos % (Auto) Baso % (Auto) Absolute Neuts (auto) Absolute Lymphs (auto) Absolute Monos (auto) Absolute Eos (auto) Absolute Basos (auto) Seg Neutrophils % PT INR APTT D-Dimer Carbonic Acid HCO3/H2CO3 Ratio ABG pH ABG pCO2 ABG pO2 ABG HCO3 ABG Total CO2 ABG O2 Saturation ABG Base Excess VBG pH VBG pCO2 VBG HCO3 VBG Base Excess FiO2 Sodium Cancelled Potassium Cancelled Chloride Cancelled Carbon Dioxide Cancelled Anion Gap Cancelled BUN Cancelled Creatinine Cancelled Est GFR ( Amer) Cancelled Est GFR (Non-Af Amer) Cancelled Est GFR (MDRD) Non-Af Cancelled Glucose Cancelled POC Glucose 259 H Lactic Acid Calcium Cancelled Phosphorus Magnesium Total Bilirubin Direct Bilirubin Neonat Total Bilirubin Neonat Direct Bilirubin Neonat Indirect Bili AST ALT Alkaline Phosphatase Creatine Kinase Troponin I Cancelled NT-Pro-B Natriuret Pep Total Protein Albumin Triglycerides EGFR Cancelled Urine Color Urine Appearance Urine pH Ur Specific [place] Urine Protein Urine Glucose (UA) Urine Ketones Urine Blood Urine Nitrite (Reflex) Urine Bilirubin Urine Urobilinogen Leukocyte Esterase Rfl Urine RBC (Auto) U Hyaline Cast (Auto) Urine Bacteria (Auto) Urine WBC (Reflex) Urine Mucus (Auto) Urine Ascorbic Acid Salicylates Urine Opiates Screen Urine Methadone Screen Acetaminophen Ur Barbiturates Screen Ur Phencyclidine Scrn Ur Amphetamines Screen U Benzodiazepines Scrn Urine Cocaine Screen U Marijuana (THC) Screen Serum Alcohol Influenza A (RT-PCR) Influenza B (RT-PCR) RSV (RT-PCR) SARS-CoV-2 Rap RNA(RT-PCR) 06/12/20 06/12/20 06/12/20 11:25 15:23 15:23 WBC RBC Hgb Hct MCV MCH MCHC RDW Plt Count Lymph % (Auto) [place] % (Auto) Eos % (Auto) Baso % (Auto) Absolute Neuts (auto) Absolute Lymphs (auto) Absolute Monos (auto) Absolute Eos (auto) Absolute Basos (auto) Seg Neutrophils % PT INR APTT D-Dimer Carbonic Acid 0.93 L HCO3/H2CO3 Ratio 25:1 ABG pH 7.51 H ABG pCO2 30.9 L ABG pO2 144.3 H ABG HCO3 23.8 ABG Total CO2 24.8 ABG O2 Saturation 99.1 H ABG Base Excess 1.2 VBG pH VBG pCO2 VBG HCO3 VBG Base Excess FiO2 90% Sodium 137.6 Potassium 3.5 L Chloride 103 Carbon Dioxide 26 Anion Gap 9 BUN 29 H Creatinine 3.30 H Est GFR ( Amer) 23 L Est GFR (Non-Af Amer) Est GFR (MDRD) Non-Af 19 L Glucose 213 H POC Glucose Lactic Acid Calcium 8.4 Phosphorus Magnesium Total Bilirubin Direct Bilirubin Neonat Total Bilirubin Neonat Direct Bilirubin Neonat Indirect Bili AST ALT Alkaline Phosphatase Creatine Kinase Troponin I 0.108 NT-Pro-B Natriuret Pep Total Protein Albumin Triglycerides EGFR Urine Color Urine Appearance Urine pH Ur Specific [place] Urine Protein Urine Glucose (UA) Urine Ketones Urine Blood Urine Nitrite (Reflex) Urine Bilirubin Urine Urobilinogen Leukocyte Esterase Rfl Urine RBC (Auto) U Hyaline Cast (Auto) Urine Bacteria (Auto) Urine WBC (Reflex) Urine Mucus (Auto) Urine Ascorbic Acid Salicylates Urine Opiates Screen Urine Methadone Screen Acetaminophen Ur Barbiturates Screen Ur Phencyclidine Scrn Ur Amphetamines Screen U Benzodiazepines Scrn Urine Cocaine Screen U Marijuana (THC) Screen Serum Alcohol Influenza A (RT-PCR) Influenza B (RT-PCR) RSV (RT-PCR) SARS-CoV-2 Rap RNA(RT-PCR) 06/12/20 06/12/20 06/13/20 21:21 22:29 00:12 WBC RBC Hgb Hct MCV MCH MCHC RDW Plt Count Lymph % (Auto) [place] % (Auto) Eos % (Auto) Baso % (Auto) Absolute Neuts (auto) Absolute Lymphs (auto) Absolute Monos (auto) Absolute Eos (auto) Absolute Basos (auto) Seg Neutrophils % PT INR APTT D-Dimer Carbonic Acid HCO3/H2CO3 Ratio ABG pH ABG pCO2 ABG pO2 ABG HCO3 ABG Total CO2 ABG O2 Saturation ABG Base Excess VBG pH VBG pCO2 VBG HCO3 VBG Base Excess FiO2 Sodium Cancelled 137.3 Potassium Cancelled 3.3 L Chloride Cancelled 106 Carbon Dioxide Cancelled 25 Anion Gap Cancelled 6 BUN Cancelled 29 H Creatinine Cancelled 3.30 H Est GFR ( Amer) Cancelled 23 L Est GFR (Non-Af Amer) Cancelled Est GFR (MDRD) Non-Af Cancelled 19 L Glucose Cancelled 149 H POC Glucose 127 H Lactic Acid Calcium Cancelled 8.0 L Phosphorus Magnesium Total Bilirubin Direct Bilirubin Neonat Total Bilirubin Neonat Direct Bilirubin Neonat Indirect Bili AST ALT Alkaline Phosphatase Creatine Kinase Troponin I NT-Pro-B Natriuret Pep Total Protein Albumin Triglycerides EGFR Cancelled Urine Color Urine Appearance Urine pH Ur Specific [place] Urine Protein Urine Glucose (UA) Urine Ketones Urine Blood Urine Nitrite (Reflex) Urine Bilirubin Urine Urobilinogen Leukocyte Esterase Rfl Urine RBC (Auto) U Hyaline Cast (Auto) Urine Bacteria (Auto) Urine WBC (Reflex) Urine Mucus (Auto) Urine Ascorbic Acid Salicylates Urine Opiates Screen Urine Methadone Screen Acetaminophen Ur Barbiturates Screen Ur Phencyclidine Scrn Ur Amphetamines Screen U Benzodiazepines Scrn Urine Cocaine Screen U Marijuana (THC) Screen Serum Alcohol Influenza A (RT-PCR) Influenza B (RT-PCR) RSV (RT-PCR) SARS-CoV-2 Rap RNA(RT-PCR) 06/13/20 06/13/20 06/13/20 05:09 09:33 10:45 WBC RBC Hgb Hct MCV MCH MCHC RDW Plt Count Lymph % (Auto) [place] % (Auto) Eos % (Auto) Baso % (Auto) Absolute Neuts (auto) Absolute Lymphs (auto) Absolute Monos (auto) Absolute Eos (auto) Absolute Basos (auto) Seg Neutrophils % PT INR APTT D-Dimer Carbonic Acid HCO3/H2CO3 Ratio ABG pH ABG pCO2 ABG pO2 ABG HCO3 ABG Total CO2 ABG O2 Saturation ABG Base Excess VBG pH VBG pCO2 VBG HCO3 VBG Base Excess FiO2 Sodium Potassium Chloride Carbon Dioxide Anion Gap BUN Creatinine Est GFR ( Amer) Est GFR (Non-Af Amer) Est GFR (MDRD) Non-Af Glucose POC Glucose 83 62 L 87 Lactic Acid Calcium Phosphorus Magnesium Total Bilirubin Direct Bilirubin Neonat Total Bilirubin Neonat Direct Bilirubin Neonat Indirect Bili AST ALT Alkaline Phosphatase Creatine Kinase Troponin I NT-Pro-B Natriuret Pep Total Protein Albumin Triglycerides EGFR Urine Color Urine Appearance Urine pH Ur Specific [place] Urine Protein Urine Glucose (UA) Urine Ketones Urine Blood Urine Nitrite (Reflex) Urine Bilirubin Urine Urobilinogen Leukocyte Esterase Rfl Urine RBC (Auto) U Hyaline Cast (Auto) Urine Bacteria (Auto) Urine WBC (Reflex) Urine Mucus (Auto) Urine Ascorbic Acid Salicylates Urine Opiates Screen Urine Methadone Screen Acetaminophen Ur Barbiturates Screen Ur Phencyclidine Scrn Ur Amphetamines Screen U Benzodiazepines Scrn Urine Cocaine Screen U Marijuana (THC) Screen Serum Alcohol Influenza A (RT-PCR) Influenza B (RT-PCR) RSV (RT-PCR) SARS-CoV-2 Rap RNA(RT-PCR) 06/13/20 06/13/20 06/13/20 12:00 17:30 19:50 WBC RBC Hgb Hct MCV MCH MCHC RDW Plt Count Lymph % (Auto) [place] % (Auto) Eos % (Auto) Baso % (Auto) Absolute Neuts (auto) Absolute Lymphs (auto) Absolute Monos (auto) Absolute Eos (auto) Absolute Basos (auto) Seg Neutrophils % PT INR APTT D-Dimer Carbonic Acid HCO3/H2CO3 Ratio ABG pH ABG pCO2 ABG pO2 ABG HCO3 ABG Total CO2 ABG O2 Saturation ABG Base Excess VBG pH VBG pCO2 VBG HCO3 VBG Base Excess FiO2 Sodium Potassium Chloride Carbon Dioxide Anion Gap BUN Creatinine Est GFR ( Amer) Est GFR (Non-Af Amer) Est GFR (MDRD) Non-Af Glucose POC Glucose 79 91 Lactic Acid Calcium Phosphorus Magnesium Total Bilirubin Direct Bilirubin Neonat Total Bilirubin Neonat Direct Bilirubin Neonat Indirect Bili AST ALT Alkaline Phosphatase Creatine Kinase Troponin I NT-Pro-B Natriuret Pep Total Protein Albumin Triglycerides 83 EGFR Urine Color Urine Appearance Urine pH Ur Specific [place] Urine Protein Urine Glucose (UA) Urine Ketones Urine Blood Urine Nitrite (Reflex) Urine Bilirubin Urine Urobilinogen Leukocyte Esterase Rfl Urine RBC (Auto) U Hyaline Cast (Auto) Urine Bacteria (Auto) Urine WBC (Reflex) Urine Mucus (Auto) Urine Ascorbic Acid Salicylates Urine Opiates Screen Urine Methadone Screen Acetaminophen Ur Barbiturates Screen Ur Phencyclidine Scrn Ur Amphetamines Screen U Benzodiazepines Scrn Urine Cocaine Screen U Marijuana (THC) Screen Serum Alcohol Influenza A (RT-PCR) Influenza B (RT-PCR) RSV (RT-PCR) SARS-CoV-2 Rap RNA(RT-PCR) 06/13/20 06/14/20 06/14/20 22:30 00:05 04:19 WBC 8.9 RBC 4.03 L Hgb 10.3 L Hct 31.5 L MCV 78 L MCH 25.6 L MCHC 32.8 RDW 16.3 H Plt Count 245 Lymph % (Auto) 6.8 L [place] % (Auto) 7.8 Eos % (Auto) 4.3 Baso % (Auto) 1.1 Absolute Neuts (auto) 7.1 Absolute Lymphs (auto) 0.6 Absolute Monos (auto) 0.7 Absolute Eos (auto) 0.4 Absolute Basos (auto) 0.1 Seg Neutrophils % 80.0 H PT INR APTT D-Dimer Carbonic Acid HCO3/H2CO3 Ratio ABG pH ABG pCO2 ABG pO2 ABG HCO3 ABG Total CO2 ABG O2 Saturation ABG Base Excess VBG pH VBG pCO2 VBG HCO3 VBG Base Excess FiO2 Sodium Potassium Chloride Carbon Dioxide Anion Gap BUN Creatinine Est GFR ( Amer) Est GFR (Non-Af Amer) Est GFR (MDRD) Non-Af Glucose POC Glucose 90 Lactic Acid Calcium Phosphorus Magnesium Total Bilirubin Direct Bilirubin Neonat Total Bilirubin Neonat Direct Bilirubin Neonat Indirect Bili AST ALT Alkaline Phosphatase Creatine Kinase Troponin I NT-Pro-B Natriuret Pep Total Protein Albumin Triglycerides EGFR Urine Color Urine Appearance Urine pH Ur Specific [place] Urine Protein Urine Glucose (UA) Urine Ketones Urine Blood Urine Nitrite (Reflex) Urine Bilirubin Urine Urobilinogen Leukocyte Esterase Rfl Urine RBC (Auto) U Hyaline Cast (Auto) Urine Bacteria (Auto) Urine WBC (Reflex) Urine Mucus (Auto) Urine Ascorbic Acid Salicylates Urine Opiates Screen Urine Methadone Screen Acetaminophen Ur Barbiturates Screen Ur Phencyclidine Scrn Ur Amphetamines Screen U Benzodiazepines Scrn Urine Cocaine Screen U Marijuana (THC) Screen Serum Alcohol Influenza A (RT-PCR) NEGATIVE Influenza B (RT-PCR) NEGATIVE RSV (RT-PCR) NEGATIVE SARS-CoV-2 Rap RNA(RT-PCR) NEGATIVE 06/14/20 06/14/20 06/14/20 04:19 04:19 06:22 WBC RBC Hgb Hct MCV MCH MCHC RDW Plt Count Lymph % (Auto) [place] % (Auto) Eos % (Auto) Baso % (Auto) Absolute Neuts (auto) Absolute Lymphs (auto) Absolute Monos (auto) Absolute Eos (auto) Absolute Basos (auto) Seg Neutrophils % PT INR APTT D-Dimer Carbonic Acid HCO3/H2CO3 Ratio ABG pH ABG pCO2 ABG pO2 ABG HCO3 ABG Total CO2 ABG O2 Saturation ABG Base Excess VBG pH VBG pCO2 VBG HCO3 VBG Base Excess FiO2 Sodium 139.3 Potassium 3.6 Chloride 106 Carbon Dioxide 23 Anion Gap 10 BUN 32 H Creatinine 3.67 H Est GFR ( Amer) 21 L Est GFR (Non-Af Amer) Est GFR (MDRD) Non-Af 17 L Glucose 98 POC Glucose 95 Lactic Acid Calcium 8.3 L Phosphorus 5.0 H Magnesium 2.0 Total Bilirubin 1.6 H Direct Bilirubin 0.5 H Neonat Total Bilirubin Not Reportable Neonat Direct Bilirubin Not Reportable Neonat Indirect Bili Not Reportable AST 23 ALT 23 Alkaline Phosphatase 63 Creatine Kinase Troponin I NT-Pro-B Natriuret Pep 7180 H Total Protein 6.2 L Albumin 2.9 L Triglycerides EGFR Urine Color Urine Appearance Urine pH Ur Specific [place] Urine Protein Urine Glucose (UA) Urine Ketones Urine Blood Urine Nitrite (Reflex) Urine Bilirubin Urine Urobilinogen Leukocyte Esterase Rfl Urine RBC (Auto) U Hyaline Cast (Auto) Urine Bacteria (Auto) Urine WBC (Reflex) Urine Mucus (Auto) Urine Ascorbic Acid Salicylates Urine Opiates Screen Urine Methadone Screen Acetaminophen Ur Barbiturates Screen Ur Phencyclidine Scrn Ur Amphetamines Screen U Benzodiazepines Scrn Urine Cocaine Screen U Marijuana (THC) Screen Serum Alcohol Influenza A (RT-PCR) Influenza B (RT-PCR) RSV (RT-PCR) SARS-CoV-2 Rap RNA(RT-PCR) 06/14/20 06/14/20 06/14/20 10:43 12:09 17:08 WBC RBC Hgb Hct MCV MCH MCHC RDW Plt Count Lymph % (Auto) [place] % (Auto) Eos % (Auto) Baso % (Auto) Absolute Neuts (auto) Absolute Lymphs (auto) Absolute Monos (auto) Absolute Eos (auto) Absolute Basos (auto) Seg Neutrophils % PT INR APTT D-Dimer Carbonic Acid HCO3/H2CO3 Ratio ABG pH ABG pCO2 ABG pO2 ABG HCO3 ABG Total CO2 ABG O2 Saturation ABG Base Excess VBG pH VBG pCO2 VBG HCO3 VBG Base Excess FiO2 Sodium Potassium Chloride Carbon Dioxide Anion Gap BUN Creatinine Est GFR ( Amer) Est GFR (Non-Af Amer) Est GFR (MDRD) Non-Af Glucose POC Glucose 157 H 170 H 185 H Lactic Acid Calcium Phosphorus Magnesium Total Bilirubin Direct Bilirubin Neonat Total Bilirubin Neonat Direct Bilirubin Neonat Indirect Bili AST ALT Alkaline Phosphatase Creatine Kinase Troponin I NT-Pro-B Natriuret Pep Total Protein Albumin Triglycerides EGFR Urine Color Urine Appearance Urine pH Ur Specific [place] Urine Protein Urine Glucose (UA) Urine Ketones Urine Blood Urine Nitrite (Reflex) Urine Bilirubin Urine Urobilinogen Leukocyte Esterase Rfl Urine RBC (Auto) U Hyaline Cast (Auto) Urine Bacteria (Auto) Urine WBC (Reflex) Urine Mucus (Auto) Urine Ascorbic Acid Salicylates Urine Opiates Screen Urine Methadone Screen Acetaminophen Ur Barbiturates Screen Ur Phencyclidine Scrn Ur Amphetamines Screen U Benzodiazepines Scrn Urine Cocaine Screen U Marijuana (THC) Screen Serum Alcohol Influenza A (RT-PCR) Influenza B (RT-PCR) RSV (RT-PCR) SARS-CoV-2 Rap RNA(RT-PCR) 06/14/20 06/15/20 06/15/20 23:04 05:36 06:33 WBC 8.0 RBC 4.05 L Hgb 10.2 L Hct 31.1 L MCV 77 L MCH 25.3 L MCHC 32.9 RDW 15.8 H Plt Count 227 Lymph % (Auto) 7.3 L [place] % (Auto) 10.9 Eos % (Auto) 2.6 Baso % (Auto) 0.5 Absolute Neuts (auto) 6.3 Absolute Lymphs (auto) 0.6 Absolute Monos (auto) 0.9 Absolute Eos (auto) 0.2 Absolute Basos (auto) 0.0 Seg Neutrophils % 78.7 H PT INR APTT D-Dimer Carbonic Acid HCO3/H2CO3 Ratio ABG pH ABG pCO2 ABG pO2 ABG HCO3 ABG Total CO2 ABG O2 Saturation ABG Base Excess VBG pH VBG pCO2 VBG HCO3 VBG Base Excess FiO2 Sodium Potassium Chloride Carbon Dioxide Anion Gap BUN Creatinine Est GFR ( Amer) Est GFR (Non-Af Amer) Est GFR (MDRD) Non-Af Glucose POC Glucose 238 H 176 H Lactic Acid Calcium Phosphorus Magnesium Total Bilirubin Direct Bilirubin Neonat Total Bilirubin Neonat Direct Bilirubin Neonat Indirect Bili AST ALT Alkaline Phosphatase Creatine Kinase Troponin I NT-Pro-B Natriuret Pep Total Protein Albumin Triglycerides EGFR Urine Color Urine Appearance Urine pH Ur Specific [place] Urine Protein Urine Glucose (UA) Urine Ketones Urine Blood Urine Nitrite (Reflex) Urine Bilirubin Urine Urobilinogen Leukocyte Esterase Rfl Urine RBC (Auto) U Hyaline Cast (Auto) Urine Bacteria (Auto) Urine WBC (Reflex) Urine Mucus (Auto) Urine Ascorbic Acid Salicylates Urine Opiates Screen Urine Methadone Screen Acetaminophen Ur Barbiturates Screen Ur Phencyclidine Scrn Ur Amphetamines Screen U Benzodiazepines Scrn Urine Cocaine Screen U Marijuana (THC) Screen Serum Alcohol Influenza A (RT-PCR) Influenza B (RT-PCR) RSV (RT-PCR) SARS-CoV-2 Rap RNA(RT-PCR) 06/15/20 06/15/20 06/15/20 06:33 11:28 12:02 WBC RBC Hgb Hct MCV MCH MCHC RDW Plt Count Lymph % (Auto) [place] % (Auto) Eos % (Auto) Baso % (Auto) Absolute Neuts (auto) Absolute Lymphs (auto) Absolute Monos (auto) Absolute Eos (auto) Absolute Basos (auto) Seg Neutrophils % PT INR APTT D-Dimer Carbonic Acid 1.20 HCO3/H2CO3 Ratio 20:1 ABG pH 7.40 ABG pCO2 39.9 ABG pO2 58.0 L ABG HCO3 24.4 H ABG Total CO2 25.6 ABG O2 Saturation 90.3 L ABG Base Excess -0.2 VBG pH VBG pCO2 VBG HCO3 VBG Base Excess FiO2 30% Sodium 139.6 Potassium 3.4 L Chloride 105 Carbon Dioxide 27 Anion Gap 8 BUN 46 H Creatinine 3.88 H Est GFR ( Amer) 19 L Est GFR (Non-Af Amer) Est GFR (MDRD) Non-Af 16 L Glucose 199 H POC Glucose 228 H Lactic Acid Calcium 8.6 Phosphorus Magnesium Total Bilirubin Direct Bilirubin Neonat Total Bilirubin Neonat Direct Bilirubin Neonat Indirect Bili AST ALT Alkaline Phosphatase Creatine Kinase Troponin I NT-Pro-B Natriuret Pep Total Protein Albumin Triglycerides EGFR Urine Color Urine Appearance Urine pH Ur Specific [place] Urine Protein Urine Glucose (UA) Urine Ketones Urine Blood Urine Nitrite (Reflex) Urine Bilirubin Urine Urobilinogen Leukocyte Esterase Rfl Urine RBC (Auto) U Hyaline Cast (Auto) Urine Bacteria (Auto) Urine WBC (Reflex) Urine Mucus (Auto) Urine Ascorbic Acid Salicylates Urine Opiates Screen Urine Methadone Screen Acetaminophen Ur Barbiturates Screen Ur Phencyclidine Scrn Ur Amphetamines Screen U Benzodiazepines Scrn Urine Cocaine Screen U Marijuana (THC) Screen Serum Alcohol Influenza A (RT-PCR) Influenza B (RT-PCR) RSV (RT-PCR) SARS-CoV-2 Rap RNA(RT-PCR) 06/15/20 06/15/20 06/16/20 17:07 23:10 04:07 WBC 9.1 RBC 4.29 L Hgb 10.6 L Hct 33.3 L MCV 78 L MCH 24.7 L MCHC 31.8 L RDW 15.9 H Plt Count 256 Lymph % (Auto) 6.0 L [place] % (Auto) 10.2 Eos % (Auto) 3.6 Baso % (Auto) 0.6 Absolute Neuts (auto) 7.2 Absolute Lymphs (auto) 0.5 Absolute Monos (auto) 0.9 Absolute Eos (auto) 0.3 Absolute Basos (auto) 0.1 Seg Neutrophils % 79.6 H PT INR APTT D-Dimer Carbonic Acid HCO3/H2CO3 Ratio ABG pH ABG pCO2 ABG pO2 ABG HCO3 ABG Total CO2 ABG O2 Saturation ABG Base Excess VBG pH VBG pCO2 VBG HCO3 VBG Base Excess FiO2 Sodium Potassium Chloride Carbon Dioxide Anion Gap BUN Creatinine Est GFR ( Amer) Est GFR (Non-Af Amer) Est GFR (MDRD) Non-Af Glucose POC Glucose 208 H 136 H Lactic Acid Calcium Phosphorus Magnesium Total Bilirubin Direct Bilirubin Neonat Total Bilirubin Neonat Direct Bilirubin Neonat Indirect Bili AST ALT Alkaline Phosphatase Creatine Kinase Troponin I NT-Pro-B Natriuret Pep Total Protein Albumin Triglycerides EGFR Urine Color Urine Appearance Urine pH Ur Specific [place] Urine Protein Urine Glucose (UA) Urine Ketones Urine Blood Urine Nitrite (Reflex) Urine Bilirubin Urine Urobilinogen Leukocyte Esterase Rfl Urine RBC (Auto) U Hyaline Cast (Auto) Urine Bacteria (Auto) Urine WBC (Reflex) Urine Mucus (Auto) Urine Ascorbic Acid Salicylates Urine Opiates Screen Urine Methadone Screen Acetaminophen Ur Barbiturates Screen Ur Phencyclidine Scrn Ur Amphetamines Screen U Benzodiazepines Scrn Urine Cocaine Screen U Marijuana (THC) Screen Serum Alcohol Influenza A (RT-PCR) Influenza B (RT-PCR) RSV (RT-PCR) SARS-CoV-2 Rap RNA(RT-PCR) 06/16/20 06/16/20 06/16/20 04:07 09:52 12:22 WBC RBC Hgb Hct MCV MCH MCHC RDW Plt Count Lymph % (Auto) [place] % (Auto) Eos % (Auto) Baso % (Auto) Absolute Neuts (auto) Absolute Lymphs (auto) Absolute Monos (auto) Absolute Eos (auto) Absolute Basos (auto) Seg Neutrophils % PT INR APTT D-Dimer Carbonic Acid HCO3/H2CO3 Ratio ABG pH ABG pCO2 ABG pO2 ABG HCO3 ABG Total CO2 ABG O2 Saturation ABG Base Excess VBG pH VBG pCO2 VBG HCO3 VBG Base Excess FiO2 Sodium 141.0 Potassium 3.7 Chloride 109 H Carbon Dioxide 24 Anion Gap 8 BUN 44 H Creatinine 3.26 H Est GFR ( Amer) 24 L Est GFR (Non-Af Amer) Est GFR (MDRD) Non-Af 20 L Glucose 133 H POC Glucose 104 132 H Lactic Acid Calcium 8.7 Phosphorus Magnesium Total Bilirubin Direct Bilirubin Neonat Total Bilirubin Neonat Direct Bilirubin Neonat Indirect Bili AST ALT Alkaline Phosphatase Creatine Kinase Troponin I NT-Pro-B Natriuret Pep Total Protein Albumin Triglycerides EGFR Urine Color Urine Appearance Urine pH Ur Specific [place] Urine Protein Urine Glucose (UA) Urine Ketones Urine Blood Urine Nitrite (Reflex) Urine Bilirubin Urine Urobilinogen Leukocyte Esterase Rfl Urine RBC (Auto) U Hyaline Cast (Auto) Urine Bacteria (Auto) Urine WBC (Reflex) Urine Mucus (Auto) Urine Ascorbic Acid Salicylates Urine Opiates Screen Urine Methadone Screen Acetaminophen Ur Barbiturates Screen Ur Phencyclidine Scrn Ur Amphetamines Screen U Benzodiazepines Scrn Urine Cocaine Screen U Marijuana (THC) Screen Serum Alcohol Influenza A (RT-PCR) Influenza B (RT-PCR) RSV (RT-PCR) SARS-CoV-2 Rap RNA(RT-PCR) 06/16/20 06/17/20 06/17/20 17:09 00:27 05:57 WBC RBC Hgb Hct MCV MCH MCHC RDW Plt Count Lymph % (Auto) [place] % (Auto) Eos % (Auto) Baso % (Auto) Absolute Neuts (auto) Absolute Lymphs (auto) Absolute Monos (auto) Absolute Eos (auto) Absolute Basos (auto) Seg Neutrophils % PT INR APTT D-Dimer Carbonic Acid HCO3/H2CO3 Ratio ABG pH ABG pCO2 ABG pO2 ABG HCO3 ABG Total CO2 ABG O2 Saturation ABG Base Excess VBG pH VBG pCO2 VBG HCO3 VBG Base Excess FiO2 Sodium Potassium Chloride Carbon Dioxide Anion Gap BUN Creatinine Est GFR ( Amer) Est GFR (Non-Af Amer) Est GFR (MDRD) Non-Af Glucose POC Glucose 135 H 115 H 100 Lactic Acid Calcium Phosphorus Magnesium Total Bilirubin Direct Bilirubin Neonat Total Bilirubin Neonat Direct Bilirubin Neonat Indirect Bili AST ALT Alkaline Phosphatase Creatine Kinase Troponin I NT-Pro-B Natriuret Pep Total Protein Albumin Triglycerides EGFR Urine Color Urine Appearance Urine pH Ur Specific [place] Urine Protein Urine Glucose (UA) Urine Ketones Urine Blood Urine Nitrite (Reflex) Urine Bilirubin Urine Urobilinogen Leukocyte Esterase Rfl Urine RBC (Auto) U Hyaline Cast (Auto) Urine Bacteria (Auto) Urine WBC (Reflex) Urine Mucus (Auto) Urine Ascorbic Acid Salicylates Urine Opiates Screen Urine Methadone Screen Acetaminophen Ur Barbiturates Screen Ur Phencyclidine Scrn Ur Amphetamines Screen U Benzodiazepines Scrn Urine Cocaine Screen U Marijuana (THC) Screen Serum Alcohol Influenza A (RT-PCR) Influenza B (RT-PCR) RSV (RT-PCR) SARS-CoV-2 Rap RNA(RT-PCR) 06/17/20 06/17/20 06/17/20 07:14 07:14 10:29 WBC 9.2 RBC 3.78 L Hgb 9.6 L Hct 28.8 L MCV 76 L MCH 25.4 L MCHC 33.3 RDW 16.2 H Plt Count 282 Lymph % (Auto) 6.5 L [place] % (Auto) 10.0 Eos % (Auto) 2.6 Baso % (Auto) 0.8 Absolute Neuts (auto) 7.4 Absolute Lymphs (auto) 0.6 Absolute Monos (auto) 0.9 Absolute Eos (auto) 0.2 Absolute Basos (auto) 0.1 Seg Neutrophils % 80.1 H PT INR APTT D-Dimer Carbonic Acid HCO3/H2CO3 Ratio ABG pH ABG pCO2 ABG pO2 ABG HCO3 ABG Total CO2 ABG O2 Saturation ABG Base Excess VBG pH VBG pCO2 VBG HCO3 VBG Base Excess FiO2 Sodium 139.2 Potassium 3.3 L Chloride 109 H Carbon Dioxide 25 Anion Gap 5 BUN 38 H Creatinine 3.01 H Est GFR ( Amer) 26 L Est GFR (Non-Af Amer) Est GFR (MDRD) Non-Af 22 L Glucose 104 POC Glucose 184 H Lactic Acid Calcium 8.3 L Phosphorus Magnesium Total Bilirubin Direct Bilirubin Neonat Total Bilirubin Neonat Direct Bilirubin Neonat Indirect Bili AST ALT Alkaline Phosphatase Creatine Kinase Troponin I NT-Pro-B Natriuret Pep Total Protein Albumin Triglycerides EGFR Urine Color Urine Appearance Urine pH Ur Specific [place] Urine Protein Urine Glucose (UA) Urine Ketones Urine Blood Urine Nitrite (Reflex) Urine Bilirubin Urine Urobilinogen Leukocyte Esterase Rfl Urine RBC (Auto) U Hyaline Cast (Auto) Urine Bacteria (Auto) Urine WBC (Reflex) Urine Mucus (Auto) Urine Ascorbic Acid Salicylates Urine Opiates Screen Urine Methadone Screen Acetaminophen Ur Barbiturates Screen Ur Phencyclidine Scrn Ur Amphetamines Screen U Benzodiazepines Scrn Urine Cocaine Screen U Marijuana (THC) Screen Serum Alcohol Influenza A (RT-PCR) Influenza B (RT-PCR) RSV (RT-PCR) SARS-CoV-2 Rap RNA(RT-PCR) 06/17/20 06/17/20 06/18/20 16:55 21:38 04:41 WBC 9.3 RBC 3.52 L Hgb 9.0 L Hct 26.9 L MCV 77 L MCH 25.4 L MCHC 33.2 RDW 16.2 H Plt Count 277 Lymph % (Auto) 7.3 L [place] % (Auto) 11.5 Eos % (Auto) 2.6 Baso % (Auto) 0.5 Absolute Neuts (auto) 7.2 Absolute Lymphs (auto) 0.7 Absolute Monos (auto) 1.1 Absolute Eos (auto) 0.2 Absolute Basos (auto) 0.0 Seg Neutrophils % 78.1 H PT INR APTT D-Dimer Carbonic Acid HCO3/H2CO3 Ratio ABG pH ABG pCO2 ABG pO2 ABG HCO3 ABG Total CO2 ABG O2 Saturation ABG Base Excess VBG pH VBG pCO2 VBG HCO3 VBG Base Excess FiO2 Sodium Potassium Chloride Carbon Dioxide Anion Gap BUN Creatinine Est GFR ( Amer) Est GFR (Non-Af Amer) Est GFR (MDRD) Non-Af Glucose POC Glucose 194 H 139 H Lactic Acid Calcium Phosphorus Magnesium Total Bilirubin Direct Bilirubin Neonat Total Bilirubin Neonat Direct Bilirubin Neonat Indirect Bili AST ALT Alkaline Phosphatase Creatine Kinase Troponin I NT-Pro-B Natriuret Pep Total Protein Albumin Triglycerides EGFR Urine Color Urine Appearance Urine pH Ur Specific [place] Urine Protein Urine Glucose (UA) Urine Ketones Urine Blood Urine Nitrite (Reflex) Urine Bilirubin Urine Urobilinogen Leukocyte Esterase Rfl Urine RBC (Auto) U Hyaline Cast (Auto) Urine Bacteria (Auto) Urine WBC (Reflex) Urine Mucus (Auto) Urine Ascorbic Acid Salicylates Urine Opiates Screen Urine Methadone Screen Acetaminophen Ur Barbiturates Screen Ur Phencyclidine Scrn Ur Amphetamines Screen U Benzodiazepines Scrn Urine Cocaine Screen U Marijuana (THC) Screen Serum Alcohol Influenza A (RT-PCR) Influenza B (RT-PCR) RSV (RT-PCR) SARS-CoV-2 Rap RNA(RT-PCR) 06/18/20 06/18/20 06/18/20 04:41 06:24 10:52 WBC RBC Hgb Hct MCV MCH MCHC RDW Plt Count Lymph % (Auto) [place] % (Auto) Eos % (Auto) Baso % (Auto) Absolute Neuts (auto) Absolute Lymphs (auto) Absolute Monos (auto) Absolute Eos (auto) Absolute Basos (auto) Seg Neutrophils % PT INR APTT D-Dimer Carbonic Acid HCO3/H2CO3 Ratio ABG pH ABG pCO2 ABG pO2 ABG HCO3 ABG Total CO2 ABG O2 Saturation ABG Base Excess VBG pH VBG pCO2 VBG HCO3 VBG Base Excess FiO2 Sodium 139.5 Potassium 3.5 L Chloride 108 H Carbon Dioxide 24 Anion Gap 8 BUN 31 H Creatinine 3.09 H Est GFR ( Amer) 25 L Est GFR (Non-Af Amer) Est GFR (MDRD) Non-Af 21 L Glucose 106 POC Glucose 107 166 H Lactic Acid Calcium 8.2 L Phosphorus Magnesium 2.0 Total Bilirubin 1.1 Direct Bilirubin 0.4 Neonat Total Bilirubin Not Reportable Neonat Direct Bilirubin Not Reportable Neonat Indirect Bili Not Reportable AST 29 ALT 24 Alkaline Phosphatase 62 Creatine Kinase Troponin I NT-Pro-B Natriuret Pep Total Protein 5.4 L Albumin 2.5 L Triglycerides EGFR Urine Color Urine Appearance Urine pH Ur Specific [place] Urine Protein Urine Glucose (UA) Urine Ketones Urine Blood Urine Nitrite (Reflex) Urine Bilirubin Urine Urobilinogen Leukocyte Esterase Rfl Urine RBC (Auto) U Hyaline Cast (Auto) Urine Bacteria (Auto) Urine WBC (Reflex) Urine Mucus (Auto) Urine Ascorbic Acid Salicylates Urine Opiates Screen Urine Methadone Screen Acetaminophen Ur Barbiturates Screen Ur Phencyclidine Scrn Ur Amphetamines Screen U Benzodiazepines Scrn Urine Cocaine Screen U Marijuana (THC) Screen Serum Alcohol Influenza A (RT-PCR) Influenza B (RT-PCR) RSV (RT-PCR) SARS-CoV-2 Rap RNA(RT-PCR) 06/18/20 06/18/20 06/19/20 16:22 20:42 05:01 WBC 10.9 H RBC 3.70 L Hgb 9.3 L Hct 28.1 L MCV 76 L MCH 25.0 L MCHC 32.9 RDW 15.8 H Plt Count 326 Lymph % (Auto) [place] % (Auto) Eos % (Auto) Baso % (Auto) Absolute Neuts (auto) Absolute Lymphs (auto) Absolute Monos (auto) Absolute Eos (auto) Absolute Basos (auto) Seg Neutrophils % PT INR APTT D-Dimer Carbonic Acid HCO3/H2CO3 Ratio ABG pH ABG pCO2 ABG pO2 ABG HCO3 ABG Total CO2 ABG O2 Saturation ABG Base Excess VBG pH VBG pCO2 VBG HCO3 VBG Base Excess FiO2 Sodium Potassium Chloride Carbon Dioxide Anion Gap BUN Creatinine Est GFR ( Amer) Est GFR (Non-Af Amer) Est GFR (MDRD) Non-Af Glucose POC Glucose 147 H 153 H Lactic Acid Calcium Phosphorus Magnesium Total Bilirubin Direct Bilirubin Neonat Total Bilirubin Neonat Direct Bilirubin Neonat Indirect Bili AST ALT Alkaline Phosphatase Creatine Kinase Troponin I NT-Pro-B Natriuret Pep Total Protein Albumin Triglycerides EGFR Urine Color Urine Appearance Urine pH Ur Specific [place] Urine Protein Urine Glucose (UA) Urine Ketones Urine Blood Urine Nitrite (Reflex) Urine Bilirubin Urine Urobilinogen Leukocyte Esterase Rfl Urine RBC (Auto) U Hyaline Cast (Auto) Urine Bacteria (Auto) Urine WBC (Reflex) Urine Mucus (Auto) Urine Ascorbic Acid Salicylates Urine Opiates Screen Urine Methadone Screen Acetaminophen Ur Barbiturates Screen Ur Phencyclidine Scrn Ur Amphetamines Screen U Benzodiazepines Scrn Urine Cocaine Screen U Marijuana (THC) Screen Serum Alcohol Influenza A (RT-PCR) Influenza B (RT-PCR) RSV (RT-PCR) SARS-CoV-2 Rap RNA(RT-PCR) 06/19/20 06/19/20 06/19/20 05:01 06:08 11:43 WBC RBC Hgb Hct MCV MCH MCHC RDW Plt Count Lymph % (Auto) [place] % (Auto) Eos % (Auto) Baso % (Auto) Absolute Neuts (auto) Absolute Lymphs (auto) Absolute Monos (auto) Absolute Eos (auto) Absolute Basos (auto) Seg Neutrophils % PT INR APTT D-Dimer Carbonic Acid HCO3/H2CO3 Ratio ABG pH ABG pCO2 ABG pO2 ABG HCO3 ABG Total CO2 ABG O2 Saturation ABG Base Excess VBG pH VBG pCO2 VBG HCO3 VBG Base Excess FiO2 Sodium 137.3 Potassium 4.3 Chloride 105 Carbon Dioxide 22 Anion Gap 10 BUN 38 H Creatinine 3.22 H Est GFR ( Amer) 24 L Est GFR (Non-Af Amer) Est GFR (MDRD) Non-Af 20 L Glucose 173 H POC Glucose 195 H 283 H Lactic Acid Calcium 8.4 Phosphorus Magnesium Total Bilirubin Direct Bilirubin Neonat Total Bilirubin Neonat Direct Bilirubin Neonat Indirect Bili AST ALT Alkaline Phosphatase Creatine Kinase Troponin I NT-Pro-B Natriuret Pep Total Protein Albumin Triglycerides EGFR Urine Color Urine Appearance Urine pH Ur Specific [place] Urine Protein Urine Glucose (UA) Urine Ketones Urine Blood Urine Nitrite (Reflex) Urine Bilirubin Urine Urobilinogen Leukocyte Esterase Rfl Urine RBC (Auto) U Hyaline Cast (Auto) Urine Bacteria (Auto) Urine WBC (Reflex) Urine Mucus (Auto) Urine Ascorbic Acid Salicylates Urine Opiates Screen Urine Methadone Screen Acetaminophen Ur Barbiturates Screen Ur Phencyclidine Scrn Ur Amphetamines Screen U Benzodiazepines Scrn Urine Cocaine Screen U Marijuana (THC) Screen Serum Alcohol Influenza A (RT-PCR) Influenza B (RT-PCR) RSV (RT-PCR) SARS-CoV-2 Rap RNA(RT-PCR) 06/19/20 06/19/20 16:27 20:41 WBC RBC Hgb Hct MCV MCH MCHC RDW Plt Count Lymph % (Auto) [place] % (Auto) Eos % (Auto) Baso % (Auto) Absolute Neuts (auto) Absolute Lymphs (auto) Absolute Monos (auto) Absolute Eos (auto) Absolute Basos (auto) Seg Neutrophils % PT INR APTT D-Dimer Carbonic Acid HCO3/H2CO3 Ratio ABG pH ABG pCO2 ABG pO2 ABG HCO3 ABG Total CO2 ABG O2 Saturation ABG Base Excess VBG pH VBG pCO2 VBG HCO3 VBG Base Excess FiO2 Sodium Potassium Chloride Carbon Dioxide Anion Gap BUN Creatinine Est GFR ( Amer) Est GFR (Non-Af Amer) Est GFR (MDRD) Non-Af Glucose POC Glucose 220 H 229 H Lactic Acid Calcium Phosphorus Magnesium Total Bilirubin Direct Bilirubin Neonat Total Bilirubin Neonat Direct Bilirubin Neonat Indirect Bili AST ALT Alkaline Phosphatase Creatine Kinase Troponin I NT-Pro-B Natriuret Pep Total Protein Albumin Triglycerides EGFR Urine Color Urine Appearance Urine pH Ur Specific [place] Urine Protein Urine Glucose (UA) Urine Ketones Urine Blood Urine Nitrite (Reflex) Urine Bilirubin Urine Urobilinogen Leukocyte Esterase Rfl Urine RBC (Auto) U Hyaline Cast (Auto) Urine Bacteria (Auto) Urine WBC (Reflex) Urine Mucus (Auto) Urine Ascorbic Acid Salicylates Urine Opiates Screen Urine Methadone Screen Acetaminophen Ur Barbiturates Screen Ur Phencyclidine Scrn Ur Amphetamines Screen U Benzodiazepines Scrn Urine Cocaine Screen U Marijuana (THC) Screen Serum Alcohol Influenza A (RT-PCR) Influenza B (RT-PCR) RSV (RT-PCR) SARS-CoV-2 Rap RNA(RT-PCR) Chest X-Ray 06/12/20 00:13 IMPRESSION: 1. Parenchymal opacification prominently in the mid and upper lung zones. There is improved aeration in the lower lobes. 2. Interval intubation and placement of an NG tube. Lines and tubes are in good position. Head CT 06/12/20 00:13 IMPRESSION: Questionable age indeterminate lacunar infarct in the medial left occipital lobe. Could consider further assessment with dedicated MRI. Opacification of the ethmoid air cells and nasal passages with endotracheal and enteric tubes in place TECHNICAL DOCUMENTATION: Quality ID # 436: Final reports with documentation of one or more dose reduction techniques (e.g., Automated exposure control, adjustment of the mA and/or kV according to patient size, use of iterative reconstruction technique) copyright 2011 [employer]- All Rights Reserved Lung Scan-VQ NM 06/12/20 03:13 IMPRESSION: Low probability for pulmonary embolus. Chest X-Ray 06/14/20 00:00 IMPRESSION: 1. Improved pulmonary exam with persistent left lower lobe consolidation. 2. Stable lines and tubes. Head MRI 06/18/20 00:00 IMPRESSION: 1. Diffuse paranasal sinus disease are probably related to intubation. 2. No obvious acute findings. Nonspecific chronic findings described above. Venous Doppler Study 06/18/20 00:00 IMPRESSION: NO EVIDENCE DVT OR SVT LEFT ARM. IMPRESSION/RECOMMENDATION: 1. Respiratory arrest leading to cardiac arrest. Patient s/p intubation and extubation. Patient stable. 2. History of Covid19 related pneumonia. Probable residual lung pathology secondary to this. 3. Shortness of breath: Most likely secondary to lung involvement in the recent Covid pneumonia. 4. Abnormal EKG: Patient with multiple CAD risk factors namely age, hypertension, diabetes mellitus, and abnormal EKG. Hence would recommend that the patient have IV Lexiscan Cardiolite stress test which has been scheduled for tomorrow. 5. Persistent atrial fibrillation: Continue Eliquis at renal doses. 6. Hypertension: Blood pressure fairly well controlled. 7. 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 8. Chronic kidney disease stage IV. Avoid nephrotoxic medication. Medications reviewed. Medical regimen and management plan discussed with attending provider on the case. Medical decision making is of high complexity. 60 minutes spent as patient more than 50% time spent in direct patient care. Will follow.
[2020-06-20] MEDS: HYDRALAZINE HCL 50 MG TABLET PO SCH ×3 (04:12→18:22)
[2020-06-20] MEDS: INSULIN REG, HUMAN 100 UNIT/ML 3 ML VIAL (PYX) SUBCUT SCH ×3 (10:25→18:24)
[2020-06-20] MEDS: APIXABAN 2.5 MG TABLET PO SCH ×2 (10:48→18:21)
[2020-06-20] MEDS: CARVEDILOL 12.5 MG TABLET PO SCH (10:48)
[2020-06-20] MEDS: AMIODARONE HCL 200 MG TABLET PO SCH (10:48)
[2020-06-20] MEDS: INSULIN GLARGINE,HUM.REC.ANLOG 1,000 UNIT/10 ML VIAL SUBCUT SCH (10:49)
[2020-06-20] MEDS: NIFEDIPINE 30 MG TAB.ER.24 PO SCH (10:49)
[2020-06-20 15:31] VITALS: BP 132/92
--- NOTE | 2020-06-20 18:51 | PDOC DISCHARGE SUMMARY ---
Impression - Admit/DC Date/PCP Admission Date/Primary Care Provider: 06/12/20 02:02 ERMA DESAI Discharge Date: 06/20/20 - Discharge Diagnosis (1) Cardiac arrest Is this a current diagnosis for this admission?: Yes (2) Chronic atrial fibrillation Is this a current diagnosis for this admission?: Yes (3) Chronic diastolic (congestive) heart failure Is this a current diagnosis for this admission?: Yes (4) Chronic kidney disease, stage 4 (severe) Is this a current diagnosis for this admission?: Yes (5) Diabetes mellitus Is this a current diagnosis for this admission?: Yes (6) Hypertension Is this a current diagnosis for this admission?: Yes (7) Hyperlipidemia Is this a current diagnosis for this admission?: Yes (8) Expressive aphasia Is this a current diagnosis for this admission?: Yes (9) Extravasation injury Is this a current diagnosis for this admission?: Yes - Additional Information Resuscitation Status: Full Code Discharge Diet: Cardiac, Diabetic Discharge Activity: Activity As Tolerated, Balance Activity w/Rest, Slowly Increase Activity, Weigh Daily Referrals: DORA HOWE MD [ACTIVE STAFF] - (Call next week to schedule your ap pointment.) Nessa FULLER MD [ACTIVE STAFF] - (Within 4 to 6 weeks) Prescriptions: Amiodarone HCl [Amiodarone HCl 400 mg Tablet] 400 mg PO Q12 #60 tablet Hydralazine HCl [Apresoline 50 mg Tablet] 50 mg PO Q8A #90 tablet Home Medications: Apixaban [Eliquis 5 mg Tablet] 5 mg PO BID 06/12/20 Atorvastatin Calcium [Lipitor 20 mg Tablet] 20 mg PO QHS 06/12/20 Carvedilol 25 mg PO BID 06/12/20 Clonidine [Catapres-Tts 2 (0.2 mg/24 Hr) Transderm Ptch] 1 patch TOP .WEEKLY 06/12/20 Furosemide [Lasix] 20 mg PO BID 06/12/20 Potassium Chloride 10 meq PO DAILY 06/12/20 Acetaminophen [Tylenol 325 mg Tablet] 650 mg PO Q6HP PRN tablet 06/20/20 Amiodarone HCl [Amiodarone HCl 400 mg Tablet] 400 mg PO Q12 #60 tablet 06/20/20 Hydralazine HCl [Apresoline 50 mg Tablet] 50 mg PO Q8A #90 tablet 06/20/20 Insulin Glargine,Hum.rec.anlog [Lantus Insulin 100 Unit/1 ml 10 ml] 20 unit SUBCUT DAILY #0 unit 06/20/20 History of Present Illiness History of Present Illness: Per H&P by Tatiana Adame NP: Mr. Cristofer Emanuel is a 59-year-old male with a past medical history of hypertension, CHF, atrial fibrillation, CKD, and recent positive Covid test on 05/17. Was recently admitted 05/17-05/20 for hypertensive emergency, acute renal failure, and Covid pneumonia. He was again admitted on 05/26/2020 with increased shortness of breath and fatigue. Chest x- ray at that time showed persistent diffuse bilateral patchy airspace opacities. He was treated with azithromycin, dexamethasone vitamin C, vitamin D3, and zinc. He was discharged home on 05/28/2020 in stable condition. He presented to the ED last night at 2348 status post cardiac arrest. EMS was activated for shortness of breath when they arrived at the location [place] [employer] was on scene and had found that he is to be pulseless, used an AED and delivered 1 shock, upon EMS arrival patient was in asystole, they did ACLS for approximately 3 minutes and after 1 dose of epinephrine patient achieved ROSC. Narcan was also given by EMS which apparently improved his altered mental status. Post Narcan he was tachypneic and satting 100% on room air but again became obtunded. He was intubated in the ED for airway protection. He is admitted to the ICU for further management. Hospital Course Hospital Course: (1) Cardiac arrest Happened at home. Pt has no recollection of events. Remembers shortness of breath today. Denies recent chest discomfort or palpitations. Intubated 06/12/20 - 06/15/20 Per EMS; received AED shock x 1, 1 mg epi, 1 dose Narcan, and 3 min total ACLS protocol. Cardiology is consulted; appreciate Dr. Crystal's evaluation and recommendations. Nuclear stress test was negative for ischemia; normal stress test. Cardiology has cleared patient for discharge with close outpatient follow up. (2) Chronic atrial fibrillation Chronic a fib. Continue amiodarone. Continue Eliquis. (3) Chronic diastolic (congestive) heart failure Echocardiogram (06/12/2020) shows LVEF 55 to 60% with moderate to severe LVH, LV diastolic function not assessed due to atrial fibrillation. proBNP 7180; at baseline. Mild fluid volume overload; +1, nonpitting, edema to peripheral extremities. IV fluids have been discontinued. Now euvolemic following IV furosemide x 1 yesterday. Cardiology is consulted; appreciate Dr. Crystal's assistance. Continue carvedilol, clonidine, hydralazine, Procardia. Continue A. fib rate control with amiodarone. Anticoagulated on Eliquis. Home dose atorvastatin. Daily weights Close outpatient follow up. (4) Chronic kidney disease, stage 4 (severe) GFR 22; at baseline. Outpatient nephrology follow-up. (5) Diabetes mellitus Hemoglobin A1c(05/27/2020) 7.4%. Continue prerenal/consistent carb diet. Continue home dose Lantus 20 units daily. Outpatient PCP follow up. (6) Hypertension Acceptable blood pressures today; 113/59 Continue home dose carvedilol 25 mg twice daily, Catapres 0.2 mg transdermal patch, hydralazine 50 mg every 8 hours, and nifedipine 60 mg twice daily. Prerenal diet. (7) Hyperlipidemia Continue home dose atorvastatin. (8) Expressive aphasia Resolved Patient had mildly slurred speech, speech delay, and occasional word finding difficulty. No facial asymmetry or focal deficits noted. Head CT was negative. Follow-up MRI negative for acute findings. Continue good blood pressure and glucose control. Continue daily statin therapy. Continue home dose Eliquis. (9) Extravasation injury Improved; erythema and tenderness have resolved, remains edematous. Occurred 06/17/2020 while infusing amiodarone to his left posterior hand; now with erythema, edema, and tenderness extending to the elbow. Venous Doppler negative for SVT or DVT. Good results with Benadryl and Solu-Medrol for inflammatory/allergic type response. Gentle compression; keep extremity elevated. Physical Exam Vital Signs: Temp Pulse Resp BP Pulse Ox 97.1 F 86 16 132/92 H 100 06/20/20 15:29 06/20/20 15:29 06/20/20 15:29 06/20/20 15:29 06/20/20 15:29 Intake & Output 06/19/20 06/20/20 06/21/20 06:59 06:59 06:59 Intake Total 1100 1140 480 Output Total 1450 1025 Balance -350 115 480 Weight 117.6 kg 117.5 kg General appearance: PRESENT: no acute distress, cooperative, obese, well- developed, well-nourished Head exam: PRESENT: atraumatic, normocephalic Eye exam: PRESENT: conjunctiva pink, EOMI, PERRLA. ABSENT: scleral icterus Mouth exam: PRESENT: moist, tongue midline Respiratory exam: PRESENT: clear to auscultation [place], symmetrical, unlabored, other - room air. ABSENT: rales, rhonchi, wheezes Cardiovascular exam: PRESENT: RRR, +S1, +S2. ABSENT: diastolic murmur, rubs, systolic murmur Pulses: PRESENT: normal dorsalis pedis pul Vascular exam: PRESENT: normal capillary refill GI/Abdominal exam: PRESENT: normal bowel sounds, soft. ABSENT: distended, guarding, mass, organolmegaly, rebound, tenderness Rectal exam: PRESENT: deferred Extremities exam: PRESENT: full ROM, +1 edema - Left posterior hand and forearm. ABSENT: calf tenderness, clubbing, pedal edema Musculoskeletal exam: PRESENT: ambulatory - With front wheel walker Neurological exam: PRESENT: alert, awake, oriented to person, oriented to place, oriented to time, oriented to situation, CN II-XII grossly intact. ABSENT: motor sensory deficit Psychiatric exam: PRESENT: appropriate affect, normal mood. ABSENT: homicidal ideation, suicidal ideation Skin exam: PRESENT: dry, intact, warm. ABSENT: cyanosis, rash Results Laboratory Results: WBC 10.9 10^3/uL (4.0-10.5) H 06/19/20 05:01 RBC 3.70 10^6/uL (4.35-5.55) L 06/19/20 05:01 Hgb 9.3 g/dL (13.5-17.0) L 06/19/20 05:01 Hct 28.1 % (37.9-51.0) L 06/19/20 05:01 MCV 76 fl (80-97) L 06/19/20 05:01 MCH 25.0 pg (27.0-33.4) L 06/19/20 05:01 MCHC 32.9 g/dL (32.0-36.0) 06/19/20 05:01 RDW 15.8 % (11.5-14.0) H 06/19/20 05:01 Plt Count 326 10^3/uL (150-450) 06/19/20 05:01 Lymph % (Auto) 7.3 % (13-45) L 06/18/20 04:41 [place] % (Auto) 11.5 % (3-13) 06/18/20 04:41 Eos % (Auto) 2.6 % (0-6) 06/18/20 04:41 Baso % (Auto) 0.5 % (0-2) 06/18/20 04:41 Absolute Neuts (auto) 7.2 10^3/uL (1.7-8.2) 06/18/20 04:41 Absolute Lymphs (auto) 0.7 10^3/uL (0.5-4.7) 06/18/20 04:41 Absolute Monos (auto) 1.1 10^3/uL (0.1-1.4) 06/18/20 04:41 Absolute Eos (auto) 0.2 10^3/uL (0.0-0.6) 06/18/20 04:41 Absolute Basos (auto) 0.0 10^3/uL (0.0-0.2) 06/18/20 04:41 Seg Neutrophils % 78.1 % (42-78) H 06/18/20 04:41 PT 15.5 SEC (11.4-15.4) H 06/12/20 00:23 INR 1.21 06/12/20 00:23 APTT 26.0 SEC (23.5-35.8) 06/12/20 00:23 D-Dimer 3.76 ug/mL (0.00-0.50) H 06/12/20 00:23 Carbonic Acid 1.20 mmol/L (1.05-1.35) 06/15/20 12:02 HCO3/H2CO3 Ratio 20:1 06/15/20 12:02 ABG pH 7.40 (7.35-7.45) 06/15/20 12:02 ABG pCO2 39.9 mmHg (35-45) 06/15/20 12:02 ABG pO2 58.0 mmHg (80-100) L 06/15/20 12:02 ABG HCO3 24.4 mmol/L (20-24) H 06/15/20 12:02 ABG Total CO2 25.6 mmol/L (23-27) 06/15/20 12:02 ABG O2 Saturation 90.3 % (94-98) L 06/15/20 12:02 ABG Base Excess -0.2 mmol/L 06/15/20 12:02 VBG pH 7.36 (7.30-7.42) 06/12/20 06:26 VBG pCO2 44.7 mmHg (35-63) 06/12/20 06:26 VBG HCO3 24.7 mmol/L (20-32) 06/12/20 06:26 VBG Base Excess -0.9 mmol/L 06/12/20 06:26 FiO2 30% 06/15/20 12:02 Sodium 137.3 mmol/L (137-145) 06/19/20 05:01 Potassium 4.3 mmol/L (3.6-5.0) 06/19/20 05:01 Chloride 105 mmol/L (98-107) 06/19/20 05:01 Carbon Dioxide 22 mmol/L (22-30) 06/19/20 05:01 Anion Gap 10 (5-19) 06/19/20 05:01 BUN 38 mg/dL (7-20) H 06/19/20 05:01 Creatinine 3.22 mg/dL (0.52-1.25) H 06/19/20 05:01 Est GFR ( Amer) 24 (>60) L 06/19/20 05:01 Est GFR (Non-Af Amer) Cancelled 06/12/20 21:21 Est GFR (MDRD) Non-Af 20 (>60) L 06/19/20 05:01 Glucose 173 mg/dL (75-110) H 06/19/20 05:01 POC Glucose 119 mg/dL (70-110) H 06/20/20 15:56 Lactic Acid 2.1 mmol/L (0.7-2.1) 06/12/20 06:26 Calcium 8.4 mg/dL (8.4-10.2) 06/19/20 05:01 Phosphorus 5.0 mg/dL (2.5-4.5) H 06/14/20 04:19 Magnesium 2.0 mg/dL (1.6-2.3) 06/18/20 04:41 Total Bilirubin 1.1 mg/dL (0.2-1.3) 06/18/20 04:41 Direct Bilirubin 0.4 mg/dL (0.0-0.4) 06/18/20 04:41 Neonat Total Bilirubin Not Reportable 06/18/20 04:41 Neonat Direct Bilirubin Not Reportable 06/18/20 04:41 Neonat Indirect Bili Not Reportable 06/18/20 04:41 AST 29 U/L (17-59) 06/18/20 04:41 ALT 24 U/L (<50) 06/18/20 04:41 Alkaline Phosphatase 62 U/L (38-126) 06/18/20 04:41 Creatine Kinase 111 U/L (55-170) 06/12/20 00:23 Troponin I 0.108 ng/mL 06/12/20 15:23 NT-Pro-B Natriuret Pep 7180 pg/mL (<125) H 06/14/20 04:19 Total Protein 5.4 g/dL (6.3-8.2) L 06/18/20 04:41 Albumin 2.5 g/dL (3.5-5.0) L 06/18/20 04:41 Triglycerides 83 mg/dL (<150) 06/13/20 19:50 EGFR Cancelled 06/12/20 21:21 Urine Color YELLOW 06/12/20 03:15 Urine Appearance CLOUDY 06/12/20 03:15 Urine pH 7.0 (5.0-9.0) 06/12/20 03:15 Ur Specific [place] 1.014 06/12/20 03:15 Urine Protein >=500 mg/dL (NEGATIVE) H 06/12/20 03:15 Urine Glucose (UA) >=500 mg/dL (NEGATIVE) H 06/12/20 03:15 Urine Ketones NEGATIVE mg/dL (NEGATIVE) 06/12/20 03:15 Urine Blood MODERATE (NEGATIVE) H 06/12/20 03:15 Urine Nitrite (Reflex) NEGATIVE (NEGATIVE) 06/12/20 03:15 Urine Bilirubin NEGATIVE (NEGATIVE) 06/12/20 03:15 Urine Urobilinogen NEGATIVE mg/dL (<2.0) 06/12/20 03:15 Leukocyte Esterase Rfl NEGATIVE (NEGATIVE) 06/12/20 03:15 Urine RBC (Auto) >182 /HPF 06/12/20 03:15 U Hyaline Cast (Auto) 1 /LPF 06/12/20 03:15 Urine Bacteria (Auto) TRACE /HPF 06/12/20 03:15 Urine WBC (Reflex) 31 /HPF 06/12/20 03:15 Urine Mucus (Auto) RARE /LPF 06/12/20 03:15 Urine Ascorbic Acid NEGATIVE (NEGATIVE) 06/12/20 03:15 Salicylates < 1.0 mg/dL (2.0-20.0) L 06/12/20 00:23 Urine Opiates Screen NEGATIVE 06/12/20 03:15 Urine Methadone Screen NEGATIVE 06/12/20 03:15 Acetaminophen < 10 ug/mL (10-30) L 06/12/20 00:23 Ur Barbiturates Screen NEGATIVE 06/12/20 03:15 Ur Phencyclidine Scrn NEGATIVE 06/12/20 03:15 Ur Amphetamines Screen NEGATIVE 06/12/20 03:15 U Benzodiazepines Scrn NEGATIVE 06/12/20 03:15 Urine Cocaine Screen NEGATIVE 06/12/20 03:15 U Marijuana (THC) Screen NEGATIVE 06/12/20 03:15 Serum Alcohol < 10 mg/dL (NONE DETECTED) 06/12/20 00:23 Influenza A (RT-PCR) NEGATIVE (NEGATIVE) 06/13/20 22:30 Influenza B (RT-PCR) NEGATIVE (NEGATIVE) 06/13/20 22:30 RSV (RT-PCR) NEGATIVE (NEGATIVE) 06/13/20 22:30 SARS-CoV-2 Rap RNA(RT-PCR) NEGATIVE (NEGATIVE) 06/13/20 22:30 06/12/20 06/12/20 06/12/20 00:23 11:15 15:23 Troponin I 0.035 Cancelled 0.108 NT-Pro-B Natriuret Pep 6230 H 06/14/20 04:19 Troponin I NT-Pro-B Natriuret Pep 7180 H Impressions: Chest X-Ray 06/12/20 00:13 IMPRESSION: 1. Parenchymal opacification prominently in the mid and upper lung zones. There is improved aeration in the lower lobes. 2. Interval intubation and placement of an NG tube. Lines and tubes are in good position. Head CT 06/12/20 00:13 IMPRESSION: Questionable age indeterminate lacunar infarct in the medial left occipital lobe. Could consider further assessment with dedicated MRI. Opacification of the ethmoid air cells and nasal passages with endotracheal and enteric tubes in place TECHNICAL DOCUMENTATION: Quality ID # 436: Final reports with documentation of one or more dose reduction techniques (e.g., Automated exposure control, adjustment of the mA and/or kV according to patient size, use of iterative reconstruction technique) copyright 2011 [employer]- All Rights Reserved Lung Scan-VQ NM 06/12/20 03:13 IMPRESSION: Low probability for pulmonary embolus. Chest X-Ray 06/14/20 00:00 IMPRESSION: 1. Improved pulmonary exam with persistent left lower lobe consolidation. 2. Stable lines and tubes. Head MRI 06/18/20 00:00 IMPRESSION: 1. Diffuse paranasal sinus disease are probably related to intubation. 2. No obvious acute findings. Nonspecific chronic findings described above. Venous Doppler Study 06/18/20 00:00 IMPRESSION: NO EVIDENCE DVT OR SVT LEFT ARM. Plan Plan of Treatment: Patient is discharged home in stable condition with home health services. He is advised to follow-up with his primary care provider within 1 week. Follow-up with Dr. Crystal next week. Follow-up with his established marketing analytics specialist, Dr. Allred, as previously scheduled. He is instructed to take his medications as prescribed. Eat a consistent carb/prerenal diet. Return to the emergency department, as needed, for concerning symptoms. Time Spent: Greater than 30 Minutes Stroke Is this a Stroke Patient?: No Acute Heart Failure Is this a Heart Failure Patient?: No
--- NOTE | 2020-06-20 19:59 | Progress Note ---
Provider Note Provider Note: CARDIOLOGY PROGRESS NOTE by Dr. Rimma Ly on 06/20/2020. SUBJECTIVE: The patient denies any chest pain or discomfort. There is no shortness of breath. There is no PND orthopnea or leg edema. The patient continues to be in atrial fibrillation. There is no ventricular arrhythmias. The patient had an uneventful IV Lexiscan Cardiolite stress test today. PHYSICAL EXAMINATION: The patient is morbidly obese. In no acute distress. Selected Entries 06/20/20 06/20/20 10:51 15:29 Temperature 97.1 F Pulse Rate 86 Respiratory 16 Rate Blood Pressure 132/92 H [Left Upper Arm ] O2 Sat by Pulse 100 Oximetry Oxygen Flow 2.50 Rate Oxygen Delivery Nasal Cannula Method Head: Is atraumatic normocephalic. EYES: Pupils are equal round regular reactive light accommodation. Extraocular movements are normal. There is no conjunctival pallor. There is no scleral icterus. EARS: Tympanic memories are intact. External auditory canals are clear. NOSE: There is no deviated nasal septum. There is no inflammation of the nasal mucous membrane. MOUTH: Mucous membranes of the mouth are moist. Tongue is moist. THROAT: There is no redness of the oropharynx. There is no exudates. SKIN: There is no skin rashes or skin lesions. There is no petechia or ecchymosis. NECK: Supple. There is no JVD. Carotids are equal there is no bruit. There is no lymphadenopathy. There is no goiter. There is no accessory muscle respiration use. Trachea central. LUNGS: There is diminished air entry prolonged expiration. Lungs are without rhonchi rales or wheezing. There is dry crackles right base and right mid zone greater than left base. There is no rales of CHF. HEART: S1-S2 is heard. S1 is of variable intensity. There is no S3 gallop. There is no S4 gallop. There is systolic murmur in the left sternal border and the apex there is no rub. ABDOMEN: Is soft. Nontender. There is no hepatosplenomegaly. Bowel sounds are well heard. There is no tender areas masses. EXTREMITIES: Femorals are diminished. There is no femoral bruits. Leg pulses are diminished. There is trace pedal edema. There is no DVT or cellulitis. There is no calf tenderness. TEST PULLER: The patient is conscious awake oriented x3 with no focal deficits. PSYCHIATRIC:. Patient judgment insight are intact his affect is normal. INTRAVENOUS LEXISCAN CARDIOLITE STRESS TEST: There is no reversible ischemia. There is no evidence of myocardial infarction or scar. Labs- All tests 24 hr 06/20/20 06/20/20 06/20/20 06:04 11:00 15:56 POC Glucose 103 188 H 119 H Chest X-Ray 06/12/20 00:13 IMPRESSION: 1. Parenchymal opacification prominently in the mid and upper lung zones. There is improved aeration in the lower lobes. 2. Interval intubation and placement of an NG tube. Lines and tubes are in good position. Head CT 06/12/20 00:13 IMPRESSION: Questionable age indeterminate lacunar infarct in the medial left occipital lobe. Could consider further assessment with dedicated MRI. Opacification of the ethmoid air cells and nasal passages with endotracheal and enteric tubes in place TECHNICAL DOCUMENTATION: Quality ID # [id number]: Final reports with documentation of one or more dose reduction techniques (e.g., Automated exposure control, adjustment of the mA and/or kV according to patient size, use of iterative reconstruction technique) copyright 2011 [employer]- All Rights Reserved Lung Scan-VQ NM 06/12/20 03:13 IMPRESSION: Low probability for pulmonary embolus. Chest X-Ray 06/14/20 00:00 IMPRESSION: 1. Improved pulmonary exam with persistent left lower lobe consolidation. 2. Stable lines and tubes. Head MRI 06/18/20 00:00 IMPRESSION: 1. Diffuse paranasal sinus disease are probably related to intubation. 2. No obvious acute findings. Nonspecific chronic findings described above. Venous Doppler Study 06/18/20 00:00 IMPRESSION: NO EVIDENCE DVT OR SVT LEFT ARM. IMPRESSION/RECOMMENDATION: 1. Respiratory arrest leading to cardiac arrest. Patient s/p intubation and extubation. Patient stable. 2. History of Covid19 related pneumonia. Probable residual lung pathology secondary to this. 3. Shortness of breath: Most likely secondary to lung involvement in the recent Covid pneumonia. 4. Abnormal EKG: Patient with multiple CAD risk factors namely age, hypertension, diabetes mellitus, and abnormal EKG. The patient's IV Lexiscan Cardiolite stress test showed no reversible ischemia, and there is no evidence of myocardial infarction/scar. This has been discussed with the patient. Also discussed this with attending provider on the case. 5. Persistent atrial fibrillation: Continue Eliquis at renal doses. 6. Hypertension: Blood pressure fairly well controlled. 7. 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 8. Chronic kidney disease stage IV. Avoid nephrotoxic medication. Medications reviewed. Medical regimen, findings of the IV Lexiscan Cardiolite stress test, and management plan discussed with attending provider on the case. Medical decision making is of moderate complexity. 40 minutes spent as patient more than 50% time spent in direct patient care. Patient's cardiac status is stable. Can discharge the patient. We will sign off the patient and follow the patient in the office.
--- NOTE | 2020-06-21 00:54 | DRAGON STRESS TEST REPORT ---
Intravenous Lexiscan Cardiolite stress test using single photon emmision computerized tomography. Date of procedure: 06/20/2020.Ordering Provider: Dr.Lakshmi Ly.Patient's status: Inpatient. Indication: Cardiorespiratory arrest. Atrial fibrillation age,. Coronary risk factors: Hypertension, diabetes mellitus, and abnormal EKG Resting EKG:Chronic Atrial Fibrillation. Lateral T changes consistent with ischemia. Stress EKG: No changes of ischemia. The patient has no chest pain or discomfort, and there were no ventricular arrhythmias seen Reason for termination: Protocol. Conclusions: Normal EKG and hemodynamic response to IV Lexiscan. Nuclear data: At rest the patient was given 15.31 millicuries of technetium 99m sestamibi injected intravenously. As per protocol rest non gated SPECT images were obtained. Subsequently the patient was given intravenous Lexiscan at a dose of 0.4 mg in 5 mL intravenously, followed by flush with normal saline. Subsequently the stress dose of 45.3 millicuries of technetium 99m sestamibi was injected intravenously. As per protocol stress gated images were obtained. Nuclear interpretation: Review of images showed that all segments of the myocardium had normal perfusion at rest, and normal perfusion post stress with IV Lexiscan. All segments of the myocardium had normal motion, contraction, and thickening by gated study. T. I D. ratio was normal at . There is no transient ischemic dilatation of the left ventricle. Computer read rest, and stress left ventricular ejection fraction were 43%, and 42%, respectively. Visually both the stress and rest ejection fractions were normal, and greater than 60%. Conclusion: 1. There is no scintigraphic evidence of Lexiscan induced myocardial ischemia. 2. There is no scintigraphic evidence of myocardial infarction/scar. Recommendations: Aggressive risk factor modification, and treating the underlying co- morbidities. [facility]
== END 2020-06-20 18:30 | disposition home health service (06) | DRG 208 ==
LOC: ER 23:44 → EH 06-12 02:02 → ICU 06-12 08:46 → EH 06-16 20:57 → 4N 06-17 16:12
PROVIDERS: ADMIT Hospitalist; ATTEND Registered Nurse
PROC: 5A1945Z Respiratory Ventilation, 24-96 Consecutive Hours (ICD-10-PCS; principal; 2020-06-12)
PROC: 0BH17EZ Insertion of Endotracheal Airway into Trachea, Via Natural or Artificial Opening (ICD-10-PCS; 2020-06-12)
PROC: B24BZZ4 Ultrasonography of Heart with Aorta, Transesophageal (ICD-10-PCS; 2020-06-13)
DX: J96.01 Acute respiratory failure with hypoxia (principal); I46.9 Cardiac arrest, cause unspecified; I13.0 Hypertensive heart and chronic kidney disease with heart failure and stage 1 through stage 4 chronic kidney disease, or unspecified chronic kidney disease; I50.32 Chronic diastolic (congestive) heart failure; N18.4 Chronic kidney disease, stage 4 (severe); R47.01 Aphasia; N17.9 Acute kidney failure, unspecified; I48.19 Other persistent atrial fibrillation; E11.22 Type 2 diabetes mellitus with diabetic chronic kidney disease; R47.81 Slurred speech; T80.89XA Other complications following infusion, transfusion and therapeutic injection, initial encounter; Y84.8 Other medical procedures as the cause of abnormal reaction of the patient, or of later complication, without mention of misadventure at the time of the procedure; E66.01 Morbid (severe) obesity due to excess calories; E78.2 Mixed hyperlipidemia; Z78.1 Physical restraint status; Z20.828 Contact with and (suspected) exposure to other viral communicable diseases; Z79.4 Long term (current) use of insulin; Z79.01 Long term (current) use of anticoagulants; Z86.19 Personal history of other infectious and parasitic diseases; Z79.899 Other long term (current) drug therapy
CPT/HCPCS: 36415; 70450; 70551; 71045; 78452; 78580; 80048; 80053; 80307; 81001; 82550; 82803; 82962; 83605; 83735; 83880; 84100; 84478; 84484; 85025; 85027; 85379; 85610; 85730; 87040; 87070; 87086; 87205; 93005; 93010; 93017; 93306; 93971; 94002; 94003; 96365; 96375; 99222; 99285; 99291; 0241U; A9500; A9540; C9113; C9803; J0282; J1170; J1650; J1815; J1940; J2060; J2310; J2704; J2785; J2920; J3480; J3490; J7030; J7060; P9041; Q9969